=== PATIENT | female | born 1975 | race Caucasian/White ===

== ENCOUNTER 2018-01-24 12:02 | Emergency (ER) | payer SELFPAY ==
[2018-01-24] MEDS ORDERED: METOCLOPRAMIDE 10 MG/2mL INJ ONE (12:29)
[2018-01-24] MEDS ORDERED: ONDANSETRON 4 MG/2 ML VIAL ONE (12:30)
[2018-01-24] MEDS ORDERED: NA CHLORIDE 0.9% 1,000 ML ONE (12:30)
[2018-01-24] MEDS ORDERED: DEXAMETHASONE 4 MG/ML VIAL ONE (12:36)
--- NOTE | 2018-01-24 12:45 | RAD REPORT ---
EXAM DESCRIPTION: CT - Head Brain Wo Cont - 01/24/2018 12:30 pm CLINICAL HISTORY: Headache COMPARISON: 2016 TECHNIQUE: Computed axial tomography of the head was obtained. IV contrast was not requested. All CT scans are performed using dose optimization technique as appropriate and may include automated exposure control or mA/KV adjustment according to patient size. FINDINGS: An intracranial bleed is not seen . The ventricles are normal in caliber. No extra-axial fluid collection is noted. Fluid within the sinuses/ mastoids is not seen. IMPRESSION: No acute intracranial abnormality is seen. If patient's symptoms persist MRI of the bra in would be recommended.
[2018-01-24 13:09] LABS: Urine Bacteria >50 /HPF (<20); Urine Culture Reflex Order NOT NEEDED; Urine RBC <5 /HPF (NONE SEEN)
[2018-01-24 13:12] LABS: Absolute Neutrophil 9.6 K/uL (1.8-8.0); Basophils % 0.9 % (0-1.3); Eosinophils % 1.7 % (0-4.4); Hematocrit 34.7 % (36.0-45.0); Lymphocytes % 26.9 % (15.3-44.8); MCH 27.9 pg (27.0-35.0); MCV 82.3 fL (80-100); MPV 9.1 fL (7.6-11.3); Monocytes % 6.8 % (3.3-12.3); RBC Red Blood Cell Count 4.22 M/uL (3.86-4.86)
[2018-01-24 13:15] LABS: Protime INR 0.94
[2018-01-24 13:25] LABS: Urine Blood NEGATIVE (NEG); Urine Glucose NEGATIVE (NEG); Urine Protein NEGATIVE (NEG)
[2018-01-24] MEDS ORDERED: CEFTRIAXONE/SWI 1gm 1 GM/10 ML SYR ONE (13:57)
[2018-01-24] MEDS ORDERED: MEPERIDINE HCL 50 MG/ML AMP ONE (14:24)
--- NOTE | 2018-01-24 15:22 | RAD REPORT ---
EXAM DESCRIPTION: CTHead angio01/24/2018 2:43 pm CLINICAL HISTORY: Headache COMPARISON: January 24, [address] TECHNIQUE: CT angiogram of the head was obtained. 50 cc Isovue 370 was intravenously. 3D MIP reconst ruction was performed All CT scans are performed using dose optimization technique as appropriate and may include automated exposure control or mA/KV adjustment according to patient size. FINDINGS: The basilar, internal carotid, anterior cerebral, middle cerebral and posterior cerebral a rteries are normal caliber. An aneurysm is not seen. A significant stenosis is not noted. IMPRESSION: Unremarkable CT angiogram head.
--- NOTE | 2018-01-24 15:29 | EDPHYS ---
Physician Documentation [facility] Name: April Ford Age: 42 yrs Sex: Female : 1975 Arrival Date: 01/24/2018 Time: 12:07 Bed 26 Private MD: ED Physician Yogesh Davidson HPI: 01/24 12:16 This 42 yrs old Female presents to ER via EMS with complaints of Headache. cp 12:16 The patient complains of pain to the all over. Onset: The symptoms/episode cp began/occurred 2 week(s) ago. 12:16 Associated signs and symptoms: Pertinent positives: nausea, Photophobia Pertinent cp negatives: fever, neck stiffness, sinus congestion, sinus tenderness, weakness. 12:16 Severity of symptoms: in the emergency department the pain is unchanged, despite home cp interventions. 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 - Social history:: Smoking status: Patient/guardian denies using tobacco. - Ebola Screening: : Patient negative for fever greater than or equal to 101.5 degrees Fahrenheit, and additional compatible Ebola Virus Disease symptoms Patient denies exposure to infectious person Patient denies travel to an Ebola-affected area in the 21 days before illness onset No symptoms or risks identified at this time. ROS: 12:20 Constitutional: Negative for body aches, chills, fever, poor PO intake. cp 12:20 Eyes: Positive for photophobia, Negative for discharge, redness, vision loss. cp 12:20 ENT: Negative for drainage from ear(s), ear pain, sore throat, difficulty swallowing, difficulty handling secretions. 12:20 Cardiovascular: Negative for chest pain, edema, palpitations. 12:20 Respiratory: Positive for shortness of breath, Negative for cough, wheezing. 12:20 Abdomen/GI: Positive for nausea, Negative for vomiting, diarrhea, constipation, black/tarry stool, rectal bleeding. 12:20 Back: Negative for pain at rest, pain with movement, radiated pain. 12:20 : Negative for urinary symptoms, flank pain. 12:20 Skin: Negative for cellulitis, rash. 12:20 Neuro: Positive for altered mental status, headache, numbness, weakness. 12:20 All other systems are negative. Exam: 12:27 Constitutional: The patient appears in no acute distress, alert, awake, non-toxic, well cp developed, well nourished, uncomfortable. 12:27 Head/face: Noted is rash, of the forehead and bridge of nose, Sinus tenderness, is not cp appreciated. 12:30 Eyes: Periorbital structures: appear normal, Pupils: equal, round, and reactive to cp light and accomodation, Extraocular movements: intact throughout, Conjunctiva: normal, no exudate, no injection, Sclera: no appreciated abnormality, Lids and lashes: appear normal, bilaterally. 12:30 ENT: External ear(s): are unremarkable, Ear canal(s): are normal, clear, TM's: cp dullness, bilaterally, Nose: is normal, Mouth: Lips: moist, Oral mucosa: pink and intact, moist, Posterior pharynx: is normal, airway is patent, no erythema, no exudate. 12:30 Neck: ROM/movement: is normal, is supple, without pain, no range of motions limitations, no meningismus, no nuchal rigidity. 12:30 Chest/axilla: Inspection: normal, Palpation: is normal, no crepitus, no tenderness. 12:30 Cardiovascular: Rate: normal, Rhythm: regular. 12:30 Respiratory: the patient does not display signs of respiratory distress, Respirations: normal, no use of accessory muscles, no retractions, no splinting, no tachypnea, labored breathing, is not present, Breath sounds: are clear throughout, no decreased breath sounds, no stridor, no wheezing. 12:30 Abdomen/GI: Inspection: abdomen appears normal, Palpation: abdomen is soft and non-tender, in all quadrants, rebound tenderness, is not appreciated, voluntary guarding, is not appreciated, involuntary guarding, is not appreciated. 12:30 Back: pain, is absent, ROM is normal. 12:30 Skin: cellulitis, is not appreciated, no rash present. 12:30 Neuro: Orientation: to person, place \T\ time. Mentation: lucid, able to follow commands, Cerebellar function: Romberg testing is negative, normal finger to nose testing, Motor: moves all fours, strength is normal, Sensation: no obvious gross deficits. Vital Signs: 12:11 BP 157 / 96; Pulse 90; Resp 20; Temp 98.3; Pulse Ox 97% on R/A; Weight 90.72 kg; Height aj 5 ft. 6 in. (167.64 cm); 13:33 BP 125 / 75; Pulse 90; Resp 15; Pulse Ox 100% on R/A; Pain 8/10; aj 13:50 BP 119 / 63; Pulse 74; Resp 16; Pulse Ox 99% on R/A; Pain 8/10; aj 15:07 BP 120 / 60; Pulse 66; Resp 16; Pulse Ox 99% on R/A; aj 16:11 BP 117 / 82; Pulse 82; Resp 16; Pulse Ox 99% on R/A; Pain 8/10; aj 12:11 Body Mass Index 32.28 (90.72 kg, 167.64 cm) aj MDM: 12:17 Patient medically screened. [place] 13:00 Differential diagnosis: cluster headache, cerebral vascular accident, hypertensive cp headache, meningitis, meningoencephalitis, migraine, sinusitis, subarachnoid bleed, temporal arteritis, trigeminal neuralgia. 15:28 Data reviewed: vital signs, nurses notes, lab test result(s), radiologic studies, CT cp scan. 15:28 Counseling: I had a detailed discussion with the patient and/or guardian regarding: the cp historical points, exam findings, and any diagnostic results supporting the discharge/admit diagnosis, lab results, radiology results, the need for outpatient follow up, a neurologist, to return to the emergency department if symptoms worsen or persist or if there are any questions or concerns that arise at home. Response to treatment: VSS. Patient observed sleeping in exam room. Will discharge to home for continued monitoring. 01/24 12:16 Order name: BMP; Complete Time: 13:27 cp 01/24 13:29 Interpretation: Normal except: GFR 54. cp 01/24 12:16 Order name: CBC with Diff; Complete Time: 13:27 cp 01/24 13:28 Interpretation: Normal except: WBC 15.0; HGB 11.8; HCT 34.7; RDW 16.5; NEUT A 9.6. 01/24 12:16 Order name: PT-INR; Complete Time: 13:27 01/24 12:16 Order name: Ptt, Activated; Complete Time: 13:27 01/24 12:45 Order name: Urine Microscopic Only; Complete Time: 13:[facility] 01/24 13:28 Interpretation: Normal except: UBACT >50; SQEPI 5-10. 01/24 12:47 Order name: Urine Dipstick--Ancillary (enter results); Complete Time: 13:27 [facility] 01/24 13:29 Interpretation: Normal except: U NIT POSITIVE. 01/24 12:16 Order name: CT Head Brain wo Cont; Complete Time: 13:01 01/24 13:01 Interpretation: Report reviewed. 01/24 12:47 Order name: Urine --Ancillary (enter results); Complete Time: 13:27 [facility] 01/24 13:53 Order name: Head angio; Complete Time: 15:28 EDMS 01/24 15:28 Interpretation: Report reviewed. 01/24 12:16 Order name: Urine Dipstick-Ancillary (obtain specimen); Complete Time: 12:55 01/24 12:16 Order name: Urine Test (obtain specimen); Complete Time: 12:54 01/24 12:16 Order name: IV; Complete Time: 12:54 01/24 12:16 Order name: Misc. Order: patient needs ride home prior to administration of meds; cp Complete Time: 12:34 Administered Medications: 12:53 Drug: Decadron - Dexamethasone 10 mg Route: IVP; Site: right antecubital; aj 13:49 Follow up: Response: Pain is decreased aj 12:54 Drug: NS 0.9% 1000 ml Route: IV; Rate: 1 bolus; Site: right antecubital; aj 15:51 Follow up: Response: No adverse reaction; IV Status: Completed infusion; IV Intake: aj 1000ml 12:54 Drug: Reglan 20 mg Route: IVP; Site: right antecubital; aj 13:48 Follow up: Response: Pain is decreased aj 12:54 Drug: Zofran 4 mg Route: IVP; Site: right antecubital; aj 13:49 Follow up: Response: Pain is decreased aj 13:53 Drug: Rocephin 1 grams Route: IV; Rate: bolus; Site: right antecubital; aj 16:13 Follow up: Response: No adverse reaction; IV Status: Completed infusion; IV Intake: 10mlaj 14:22 Drug: Demerol 25 mg Route: IVP; Site: right antecubital; aj 15:50 Follow up: Response: No adverse reaction aj 15:44 Drug: TORadol 30 mg Route: IVP; Site: right antecubital; aj 16:13 Follow up: Response: Pain is unchanged, physician notified aj Disposition: 17:00 Chart complete. cp 01/25 06:44 Co-signature as Attending Physician, Yogesh Davidson MD I agree with the assessment and [facility] plan of care. Disposition: 01/24/18 15:28 Discharged to Home. Impression: Headache. - Condition is Stable. - Discharge Instructions: General Headache Without Cause. - Prescriptions for promethazine 25 mg Oral Tablet - take 1 tablet by ORAL route every 6 hours As needed; 20 tablet. Imitrex 50 mg Oral Tablet - take 1 tablet by ORAL route one time - x 1 dose with fluids as early as possible after the onset of a migraine attack; if headache returns, the dose may be repeated after 2 hours, not to exceed a total daily dose of 4 tablets;. Naprosyn 500 mg Oral Tablet - take 1 tablet by ORAL route 2 times per day take with food; 20 tablet. - Medication Reconciliation Form, Thank You Letter, Antibiotic Education, Prescription Opioid Use form. - Follow up: Matt Crockett MD; When: 1 - 2 days; Reason: Recheck today's complaints. - Problem is new. - Symptoms have improved. Signatures: Dispatcher [employer] Lynnette Bettencourt RN RN aj Anderson, Corey, MD MD cha Page, Corey, PA PA cp Corrections: (The following items were deleted from the chart) 01/24 13:42 13:40 Constitutional: The patient appears in no acute distress, cp cp 16:14 15:28 01/24/2018 15:28 Discharged to Home. Impression: Headache. Condition is Stable. aj Forms are Medication Reconciliation Form, Thank You Letter, Antibiotic Education, Prescription Opioid Use. Follow up: Matt Crockett; When: 1 - 2 days; Reason: Recheck today's complaints. Problem is new. Symptoms have improved. cp
--- NOTE | 2018-01-24 15:29 | ER ---
Nurse's Notes [facility] Name: April Ford Age: 42 yrs Sex: Female : 1975 Arrival Date: 01/24/2018 Time: 12:07 Bed 26 Private MD: Diagnosis: Headache Presentation: 01/24 12:08 Presenting complaint: EMS states: Migraine headache for 14 days. Patient reports headache became worse 2 days ago. Transition of care: patient was not received from another setting of care. Onset of symptoms was January 24, 2018. Risk Assessment: Do you want to hurt yourself or someone else? Patient reports no desire to harm self or others. Initial Sepsis Screen: Does the patient meet any 2 criteria? No. Patient's initial sepsis screen is negative. Does the patient have a suspected source of infection? No. Patient's initial sepsis screen is negative. Care prior to arrival: None. 12:08 Method Of Arrival: EMS: [facility] 12:08 Acuity: BALDEMAR 3 Triage Assessment: 12:11 Headache History: The patient has had previous headaches and this one is similar to previous episodes. General: Appears in no apparent distress. uncomfortable, Behavior is cooperative, appropriate for age, crying. Pain: Complains of pain in face Pain Pain began 14 Days ago Also complains of nausea. Neuro: Level of Consciousness is awake, alert, obeys commands, Oriented to person, place, time, situation, Appropriate for age Cane Packer are equal bilaterally Moves all extremities. Speech is normal, Facial symmetry appears normal, Reports headache. Respiratory: Airway is patent Respiratory effort is even, unlabored, Respiratory pattern is regular, symmetrical. Derm: Skin is intact, is healthy with good turgor, Skin is pink, warm \\T\\ dry. normal, Rash noted that is red, on nose. 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 - Social history:: Smoking status: Patient/guardian denies using tobacco. - Ebola Screening: : Patient negative for fever greater than or equal to 101.5 degrees Fahrenheit, and additional compatible Ebola Virus Disease symptoms Patient denies exposure to infectious person Patient denies travel to an Ebola-affected area in the 21 days before illness onset No symptoms or risks identified at this time. Screenin:35 Abuse screen: Denies threats or abuse. Denies injuries from another. Nutritional aj screening: No deficits noted. Tuberculosis screening: No symptoms or risk factors identified. Fall Risk None identified. Assessment: 12:27 Reassessment: Patient taken to CT prior to obtaining urine or IV start. Patient aj reported that her daughter is on her way to the ER and will be providing her with a ride home. 12:35 Reassessment: Patient's daughter is here. aj 12:55 Reassessment: Patient complains that pain is unrelieved. aj 13:38 Reassessment: Patient appears in no apparent distress at this time. Patient and/or aj family updated on plan of care and expected duration. Pain level reassessed. Patient is alert, oriented x 3, equal unlabored respirations, skin warm/dry/pink. Patient reports pain has improved from 10/10 to 8/10, and reports that she is still uncomfortable. Patient requested to speak to Dr Davidson. Physician notified. 15:07 Reassessment: Patient appears in no apparent distress at this time. Patient and/or aj family updated on plan of care and expected duration. Pain level reassessed. Patient is alert, oriented x 3, equal unlabored respirations, skin warm/dry/pink. Patient is resting comfortably in bed Patient states feeling better. Patient states symptoms have improved. 15:40 Reassessment: Patient appears in no apparent distress at this time. Patient reports aj pain is not improved, 8/10. Patient is drowsy in bed. Provider notified of patient's pain. Vital Signs: 12:11 BP 157 / 96; Pulse 90; Resp 20; Temp 98.3; Pulse Ox 97% on R/A; Weight 90.72 kg; Height aj 5 ft. 6 in. (167.64 cm); 13:33 BP 125 / 75; Pulse 90; Resp 15; Pulse Ox 100% on R/A; Pain 8/10; aj 13:50 BP 119 / 63; Pulse 74; Resp 16; Pulse Ox 99% on R/A; Pain 8/10; aj 15:07 BP 120 / 60; Pulse 66; Resp 16; Pulse Ox 99% on R/A; aj 16:11 BP 117 / 82; Pulse 82; Resp 16; Pulse Ox 99% on R/A; Pain 8/10; aj 12:11 Body Mass Index 32.28 (90.72 kg, 167.64 cm) aj ED Course: 12:07 Patient arrived in ED. aj 12:08 Lynnette Sher, RN is Primary Nurse. aj 12:09 Triage completed. aj 12:10 Yogesh Mac PA is PHCP. cp 12:10 Yogesh Davidson MD is Attending Physician. cp 12:11 Arm band placed on left wrist. Patient placed in an exam room, on a stretcher, on pulse aj oximetry. 12:11 Patient has correct armband on for positive identification. aj 12:11 No provider procedures requiring assistance completed. IV discontinued, intact, aj bleeding controlled, No redness/swelling at site. Pressure dressing applied. 12:28 Notified Nurse Practitioner and/or Physician Medical Science Liaison of Patient's pain level. aj Requested medication for pain. Provider stated "I'm not giving her any narcotics. We will start with what I ordered.". 12:29 CT completed. Patient tolerated procedure well. Patient moved to CT via wheelchair. sj Patient moved back from CT. 12:30 CT Head Brain wo Cont In Process Unspecified. EDMS 12:56 Inserted saline lock: 20 gauge in right antecubital area, using aseptic technique. aj Blood collected. 13:56 Notified Nurse Practitioner and/or Physician Medical Science Liaison of Patient's pain level, request aj to be updated about CT results, and request to speak to Dr Davidson. 14:43 Head angio In Process Unspecified. EDMS 14:43 CT completed. Patient tolerated procedure well. Patient moved to CT via wheelchair. [id number] Patient moved back from CT. 15:28 Matt Crockett MD is Referral Physician. cp Administered Medications: 12:53 Drug: Decadron - Dexamethasone 10 mg Route: IVP; Site: right antecubital; aj 13:49 Follow up: Response: Pain is decreased aj 12:54 Drug: NS 0.9% 1000 ml Route: IV; Rate: 1 bolus; Site: right antecubital; aj 15:51 Follow up: Response: No adverse reaction; IV Status: Completed infusion; IV Intake: aj 1000ml 12:54 Drug: Reglan 20 mg Route: IVP; Site: right antecubital; aj 13:48 Follow up: Response: Pain is decreased aj 12:54 Drug: Zofran 4 mg Route: IVP; Site: right antecubital; aj 13:49 Follow up: Response: Pain is decreased aj 13:53 Drug: Rocephin 1 grams Route: IV; Rate: bolus; Site: right antecubital; aj 16:13 Follow up: Response: No adverse reaction; IV Status: Completed infusion; IV Intake: 10mlaj 14:22 Drug: Demerol 25 mg Route: IVP; Site: right antecubital; aj 15:50 Follow up: Response: No adverse reaction aj 15:44 Drug: TORadol 30 mg Route: IVP; Site: right antecubital; aj 16:13 Follow up: Response: Pain is unchanged, physician notified aj Intake: 15:51 IV: 1000ml; Total: 1000ml. aj 16:13 IV: 10ml; Total: 1010ml. aj Outcome: 12:11 Discharged to home ambulatory, with family. aj 12:11 Condition: good 12:11 Discharge instructions given to patient, family, Instructed on discharge instructions, follow up and referral plans. medication usage, Demonstrated understanding of instructions, follow-up care, medications, Prescriptions given X 3. 15:28 Discharge ordered by MD. cp 16:14 Patient left the ED. aj Addendum: 01/27/2018 17:26 Addendum: Culture Results: Positive urine culture. Patient was not prescribed i w antibiotics at discharge. Report given to [facility] for further evaluation and then to marine steam fitter for follow up with patient. Phone call Attempt #1 unable to leave message, call failed several times. Signatures: Dispatcher [employer] Lynnette Bettencourt RN RN aj Jones, Susan sj Williams, Irene, RN RN iw Page, Corey, PA PA cp Garcia, Jessica [id number] Corrections: (The following items were deleted from the chart) 01/24 12:28 12:27 Reassessment: Patient taken to CT prior to obtaining urine or IV start. aj aj 01/27 17:27 17:26 Addendum: Culture Results: Positive urine culture. Bacteria is resistant to, has iw intermediate sensitivity, or is not tested against prescribed antibiotics. Report given to [facility] for further evaluation and then to marine steam fitter for follow up with patient. Phone call Attempt #1 unable to leave message, call failed several times iw
[2018-01-24] MEDS ORDERED: KETOROLAC 30 MG/ML INJ ONE (15:44)
[2018-01-24 16:27] VITALS: TEMP 98.3
[2018-01-24 16:29] VITALS: O2SAT 99
[2018-01-24 16:32] VITALS: BP 117/82
== END 2018-01-24 16:14 | disposition home or self-care (01) ==
LOC: ER 12:02
DX: R51 Headache (principal); F41.9 Anxiety disorder, unspecified; Z88.0 Allergy status to penicillin; Z88.8 Allergy status to other drugs, medicaments and biological substances
CPT/HCPCS: 36415; 70450; 70496; 80048; 81003; 81015; 81025; 85025; 85610; 85730; 87077; 87086; 87088; 87186; 96361; 96365; 96366; 96375; 99285; J0696; J2175; J2405; J2765; J7030; Q9967

== ENCOUNTER 2018-03-08 10:22 | Emergency (ER) | payer SELFPAY ==
[2018-03-08] MEDS ORDERED: IPRATROPIUM BROM 0.5MG/2.5ML ONE ×2 (11:11→12:56)
[2018-03-08] MEDS ORDERED: ALBUTEROL 2.5 MG/3 ML NEB SOL ONE ×2 (11:11→12:56)
--- NOTE | 2018-03-08 11:45 | RAD REPORT ---
EXAM DESCRIPTION: RAD - Chest Pa And Lat (2 Views) - 03/08/2018 11:32 am CLINICAL HISTORY: Congestion;Cough Chest pain. COMPARISON: CHEST SINGLE VIEW dated 07/19/2015; CHEST SINGLE VIEW dated 07/11/2014; CHEST SINGLE VIEW d ated 07/10/2014; CHEST SINGLE VIEW dated 08/21/2009 FINDINGS: Interstitial prominence is present bilaterally. The heart is normal in size. No displaced fractures. Moderate hiatal hernia. IMPRESSION: Moderate bilateral interstitial opacities are present likely representing interstitial p neumonia.
[2018-03-08] MEDS ORDERED: predniSONE 20 MG TAB ONE (12:22)
[2018-03-08] MEDS ORDERED: AZITHROMYCIN 250 MG TAB ONE (12:22)
--- NOTE | 2018-03-08 12:38 | RAD REPORT ---
EXAM DESCRIPTION: RAD - Hand Right 3 View - 03/08/2018 11:33 am CLINICAL HISTORY: Right hand pain FINDINGS: No fracture or dislocation is seen.
--- NOTE | 2018-03-08 13:35 | ER ---
Nurse's Notes [facility] Name: April Ford Age: 42 yrs Sex: Female : 1975 Arrival Date: 03/08/2018 Time: 10:25 Bed 14 Private MD: Diagnosis: Pneumonia, unspecified organism Presentation: 03/08 10:48 Presenting complaint: Patient states: Cough, shortness of breath, hoarse voice for the aj1 past 3 days. Denies fever. Reports productive cough. Breath sounds diminished with wheezes. Patient also reports sore throat. Transition of care: patient was not received from another setting of care. Onset of symptoms was March 05, 2018. 10:48 Method Of Arrival: Ambulatory aj1 10:48 Acuity: BALDEMAR 3 aj1 11:09 Risk Assessment: Do you want to hurt yourself or someone else? Patient reports no la1 desire to harm self or others. Initial Sepsis Screen: Does the patient meet any 2 criteria? No. Patient's initial sepsis screen is negative. Does the patient have a suspected source of infection? No. Patient's initial sepsis screen is negative. Care prior to arrival: None. Triage Assessment: 10:50 General: Appears in no apparent distress. uncomfortable, Behavior is calm, cooperative, aj1 appropriate for age. Pain: Complains of pain in forehead Pain currently is 7 out of 10 on a pain scale. Neuro: Level of Consciousness is awake, alert, obeys commands. Cardiovascular: Patient's skin is warm and dry. Respiratory: Reports shortness of breath cough that is productive, Airway is patent Respiratory effort is even, labored, Respiratory pattern is regular, symmetrical, Breath sounds with wheezes bilaterally. Onset: The symptoms/episode began/occurred 3 days ago, the patient has mild shortness of breath. Historical: - Allergies: 10:50 Benadryl; aj1 10:50 PENICILLINS; aj1 - PMHx: 10:50 Anxiety; Migraines; Panic Attacks; aj1 - Immunization history:: Adult Immunizations up to date. - Social history:: Smoking status: unknown. - Ebola Screening: : No symptoms or risks identified at this time. Screenin:09 Abuse screen: Denies threats or abuse. Nutritional screening: No deficits noted. la1 Tuberculosis screening: No symptoms or risk factors identified. Fall Risk None identified. Assessment: 11:08 General: Appears in no apparent distress. Behavior is calm, cooperative. Pain: la1 Complains of pain in right hand and forehead. Neuro: Level of Consciousness is awake, alert, obeys commands, Oriented to person, place, time, situation. Cardiovascular: Capillary refill < 3 seconds Patient's skin is warm and dry. Rhythm is regular. Respiratory: Airway is patent Respiratory effort is even, unlabored, Respiratory pattern is regular, symmetrical. Respiratory: Breath sounds with rhonchi bilaterally. GI: Abdomen is round. : No signs and/or symptoms were reported regarding the genitourinary system. 12:40 Reassessment: Patient appears in no apparent distress at this time. No changes from la1 previously documented assessment. Patient and/or family updated on plan of care and expected duration. Pain level reassessed. 13:29 Reassessment: Patient appears in no apparent distress at this time. No changes from la1 previously documented assessment. Patient and/or family updated on plan of care and expected duration. Pain level reassessed. Vital Signs: 10:50 BP 125 / 88; Pulse 93; Resp 24; Pulse Ox 100% on R/A; Pain 7/10; aj1 13:00 BP 121 / 74; Pulse 97; Resp 20; Temp 98.8(O); Pulse Ox 98% on R/A; la1 ED Course: 10:25 Patient arrived in ED. as 10:49 Triage completed. aj1 10:50 Arm band placed on Patient placed in an exam room. aj1 10:52 [facility] kb 10:52 Sammy Chiu MD is Attending Physician. kb 11:08 Erasto Jorgensen, CATA is Primary Nurse. la1 11:09 Call light in reach. la1 11:09 No provider procedures requiring assistance completed. la1 11:33 Chest Pa And Lat (2 Views) XRAY In Process Unspecified. EDMS 11:33 Hand Right 3 View XRAY In Process Unspecified. EDMS 13:29 Patient did not have IV access during this emergency room visit. la1 Administered Medications: 11:41 Drug: DuoNeb (3:1) (2.5 mg - 0.5 mg) 3 ml Route: Nebulizer; la1 11:56 Follow up: Response: No adverse reaction la1 12:18 Drug: predniSONE 40 mg Route: PO; la1 12:48 Follow up: Response: No adverse reaction la1 12:18 Drug: Zithromax 500 mg Route: PO; la1 12:48 Follow up: Response: No adverse reaction la1 13:00 Drug: DuoNeb (3:1) (2.5 mg - 0.5 mg) 3 ml Route: Nebulizer; la1 Outcome: 13:34 Discharge ordered by . shreyas 13:47 Discharged to home ambulatory. la1 13:47 Condition: stable 13:47 Discharge instructions given to patient, Instructed on discharge instructions, follow up and referral plans. medication usage, Demonstrated understanding of instructions, follow-up care, medications, Prescriptions given X 3. 13:47 Patient left the ED. la1 Signatures: Dispatcher [employer] EDMS Zoe Marie, THREE KNIFE TRIMMER-C THREE KNIFE TRIMMER-Abbey Sandhu, RN RN ajSalma Warner Lee, RN RN la1
--- NOTE | 2018-03-08 13:35 | EDPHYS ---
Physician Documentation [facility] Name: April Ford Age: 42 yrs Sex: Female : 1975 Arrival Date: 03/08/2018 Time: 10:25 Bed 14 Private MD: ED Physician Sammy Chiu HPI: 03/08 12:39 This 42 yrs old Female presents to ER via Ambulatory with complaints of kb Cough, Shortness Of Breath. 12:39 The patient or guardian reports cough, that is intermittent, described as moderate, kb with no sputum, difficulty breathing. Onset: The symptoms/episode began/occurred 3 day(s) ago. Severity of symptoms: At their worst the symptoms were moderate, in the emergency department the symptoms are unchanged. Modifying factors: The symptoms are alleviated by nothing, the symptoms are aggravated by nothing. Associated signs and symptoms: Pertinent positives: rhinorrhea, sore throat, Pertinent negatives: chest pain, diarrhea, ear ache, fever, nausea, vomiting. The patient has not experienced similar symptoms in the past. The patient has not recently seen a physician. Pt reports shortness of breath, cough, sore throat, hoarse voice, malaise and finger pain for 3 days. . Historical: - Allergies: 10:50 Benadryl; aj1 10:50 PENICILLINS; aj1 - PMHx: 10:50 Anxiety; Migraines; Panic Attacks; aj1 - Immunization history:: Adult Immunizations up to date. - Social history:: Smoking status: unknown. - Ebola Screening: : No symptoms or risks identified at this time. ROS: 12:44 Constitutional: Negative for fever, chills, and weight loss, Neck: Negative for injury, kb pain, and swelling, Cardiovascular: Negative for chest pain, palpitations, and edema, Abdomen/GI: Negative for abdominal pain, nausea, vomiting, diarrhea, and constipation, Back: Negative for injury and pain, MS/Extremity: Negative for injury and deformity, Skin: Negative for injury, rash, and discoloration. 12:44 ENT: Positive for hoarseness, rhinorrhea, sinus congestion, sore throat. 12:44 Respiratory: Positive for cough, shortness of breath, Negative for dyspnea on exertion, hemoptysis, orthopnea, pleurisy. Exam: 12:44 Constitutional: This is a well developed, well nourished patient who is awake, alert, kb and in no acute distress. Head/Face: Normocephalic, atraumatic. Chest/axilla: Normal chest wall appearance and motion. Nontender with no deformity. No lesions are appreciated. Cardiovascular: Regular rate and rhythm with a normal S1 and S2. No gallops, murmurs, or rubs. Normal PMI, no JVD. No pulse deficits. Abdomen/GI: Soft, non-tender, with normal bowel sounds. No distension or tympany. No guarding or rebound. No evidence of tenderness throughout. Skin: Warm, dry with normal turgor. Normal color with no rashes, no lesions, and no evidence of cellulitis. MS/ Extremity: Pulses equal, no cyanosis. Neurovascular intact. Full, normal range of motion. Neuro: Awake and alert, GCS 15, oriented to person, place, time, and situation. Cranial nerves II-XII grossly intact. Motor strength 5/5 in all extremities. Sensory grossly intact. Cerebellar exam normal. Normal gait. 12:44 ENT: Mouth: is normal, Posterior pharynx: Airway: normal, no evidence of obstruction, Tonsils: bilaterally enlarged, with erythema, Uvula: normal, midline, swelling, that is mild, erythema, that is moderate, Voice: is hoarse. 12:44 Respiratory: the patient does not display signs of respiratory distress, Respirations: normal, Breath sounds: wheezing: expiratory that is moderate, is heard diffusely. Vital Signs: 10:50 BP 125 / 88; Pulse 93; Resp 24; Pulse Ox 100% on R/A; Pain 7/10; aj1 13:00 BP 121 / 74; Pulse 97; Resp 20; Temp 98.8(O); Pulse Ox 98% on R/A; la1 MDM: 10:52 Patient medically screened. kb 12:45 Data reviewed: vital signs, nurses notes. Data interpreted: Pulse oximetry: on room air kb is 100 %. Interpretation: normal. 13:34 Counseling: I had a detailed discussion with the patient and/or guardian regarding: the kb historical points, exam findings, and any diagnostic results supporting the discharge/admit diagnosis, lab results, radiology results, the need for outpatient follow up, a family practitioner, to return to the emergency department if symptoms worsen or persist or if there are any questions or concerns that arise at home. 03/08 10:58 Order name: Flu; Complete Time: 12:38 kb 03/08 10:58 Order name: Strep; Complete Time: 11:41 kb 03/08 10:58 Order name: Chest Pa And Lat (2 Views) XRAY; Complete Time: 11:53 kb 03/08 10:58 Order name: Hand Right 3 View XRAY; Complete Time: 12:40 kb 03/08 11:40 Order name: Throat Culture EDMS Administered Medications: 11:41 Drug: DuoNeb (3:1) (2.5 mg - 0.5 mg) 3 ml Route: Nebulizer; la1 11:56 Follow up: Response: No adverse reaction la1 12:18 Drug: predniSONE 40 mg Route: PO; la1 12:48 Follow up: Response: No adverse reaction la1 12:18 Drug: Zithromax 500 mg Route: PO; la1 12:48 Follow up: Response: No adverse reaction la1 13:00 Drug: DuoNeb (3:1) (2.5 mg - 0.5 mg) 3 ml Route: Nebulizer; la1 Disposition: 03/08/18 13:34 Discharged to Home. Impression: Pneumonia, unspecified organism. - Condition is Stable. - Discharge Instructions: Community-Acquired Pneumonia, Adult, [id number], Steps to Quit Smoking, [id number]. - Prescriptions for Prednisone 20 mg Oral Tablet - take 1 tablet by ORAL route once daily for 5 days; 5 tablet. Albuterol Sulfate 90 mcg/actuation - inhale 1-2 puff by INHALATION route every 4-6 hours; 1 Inhaler. Zithromax 500 mg Oral Tablet - take 1 tablet by ORAL route once daily for 5 days; 5 tablet. - Medication Reconciliation Form, Thank You Letter, Antibiotic Education, Prescription Opioid Use form. - Follow up: Private Physician; When: 2 - 3 days; Reason: Recheck today's complaints, Continuance of care, Re-evaluation by your physician. Follow up: Emergency Department; When: As needed; Reason: Worsening of condition. Addendum: 03/18/2018 08:04 Co-signature as Attending Physician, Sammy Chiu MD I agree with the assessment and k dr plan of care. Signatures: Dispatcher [employer] EDSC Zoe Marie, ANIMAL PHYSIOLOGIST-C ANIMAL PHYSIOLOGIST-CkAbbey De La Vega, RN RN aj1 Sammy Chiu MD MD kdr Erasto Jorgensen RN RN la1 Corrections: (The following items were deleted from the chart) 03/08 13:47 13:34 03/08/2018 13:34 Discharged to Home. Impression: Pneumonia, unspecified organism. la1 Condition is Stable. Forms are Medication Reconciliation Form, Thank You Letter, Antibiotic Education, Prescription Opioid Use. Follow up: Private Physician; When: 2 - 3 days; Reason: Recheck today's complaints, Continuance of care, Re-evaluation by your physician. Follow up: Emergency Department; When: As needed; Reason: Worsening of condition. kb
[2018-03-08 13:55] VITALS: BP 121/74; TEMP 98.8; O2SAT 98
== END 2018-03-08 13:47 | disposition home or self-care (01) ==
LOC: ER 10:22
DX: J18.9 Pneumonia, unspecified organism (principal); Z88.0 Allergy status to penicillin; Z88.8 Allergy status to other drugs, medicaments and biological substances
CPT/HCPCS: 71046; 87070; 87081; 87804; 94640; 99284; J7512

== ENCOUNTER 2019-10-30 10:52 | Emergency (ER) | payer SELFPAY, OTHER ==
[2019-10-30 11:33] LABS: Absolute Lymphocytes (CBC) 1.9 K/uL (0.7-4.9); Basophils % 0.4 % (0-1.3); Hematocrit 35.2 % (36.0-45.0); Lymphocytes % 9.1 % (15.3-44.8); MPV 9.5 fL (7.6-11.3); RBC Red Blood Cell Count 4.46 M/uL (3.86-4.86)
[2019-10-30 11:35] LABS: Protime INR 1.24
[2019-10-30 11:49] LABS: ALT/SGPT 25 U/L (12-78); AST/SGOT 17 U/L (15-37); Albumin 3.2 g/dL (3.4-5.0); Alkaline Phosphatase 122 U/L (45-117); BUN Blood Urea Nitrogen 9 mg/dL (7-18); Bicarbonate 23 mmol/L (21-32); Bilirubin Direct < 0.1 mg/dL (0-0.2); Bilirubin Total 0.2 mg/dL (0.2-1.0); Glucose Level 102 mg/dL (74-106); Lipase 131 U/L (73-393); Protein, Total 7.9 g/dL (6.4-8.2); Sodium Level 135 mmol/L (136-145); Troponin (Emerg Dept Use Only) < 0.02 ng/mL (0.0-0.045)
[2019-10-30 11:51] LABS: Arterial Blood Carboxyhemoglob 2.8 % (0-1.5); Blood Gas Oxyhemoglobin 92.4 % (94-97); Blood O2 Saturation 96.1 % (92-98.5)
[2019-10-30] MEDS ORDERED: ACETAMINOPHEN 325 MG TABLET ONE (11:56)
[2019-10-30] MEDS ORDERED: NA CHLORIDE 0.9% 1,000 ML ONE (11:56)
[2019-10-30] MEDS ORDERED: METOCLOPRAMIDE 10 MG/2mL INJ ONE (12:00)
[2019-10-30 12:11] LABS: Blood Morphology Comment NOT SEEN (NOT SEEN); Platelet Estimate ADEQ
--- NOTE | 2019-10-30 12:21 | RAD REPORT ---
EXAM DESCRIPTION: RAD - Chest Single View - 10/30/2019 11:58 am CLINICAL HISTORY: sob COMPARISON: Two view chest February 2018 TECHNIQUE: AP portable chest image was obtained 10/30/2019 11:58 am . FINDINGS: Lung volumes are low accentuating vasculature and lung markings. When adjusting for the lo w lung volumes. No true change to the lung denis suspected. No significant failure or volume overloa d. Heart and vasculature are normal. No measurable pleural effusion and no pneumothorax. No acute bon y abnormality seen. No acute aortic findings suspected. IMPRESSION: Limited portable imaging without acute cardiopulmonary finding.
--- NOTE | 2019-10-30 13:04 | RAD REPORT ---
EXAM DESCRIPTION: CT - Chest For Pe Angio - 10/30/2019 12:55 pm CLINICAL HISTORY: Chest pain. shortness of breath, fever, elevated d-dimer COMPARISON: CTANGIO CHEST FOR PE dated 07/19/2015 TECHNIQUE: CT angiogram of the pulmonary arteries was performed with MIP. All CT scans are performed using dose optimization technique as appropriate and may include automated exposure control or mA/KV adjustment according to patient size. FINDINGS: Opacification of the pulmonary arterial tree is suboptimal due to bolus timing. Grossly, a pulmonary embolism is not seen No acute aortic finding demonstrated. COPD. No significant pericardial or pleural fluid. No concerning bony finding. IMPRESSION: Pulmonary arterial tree is somewhat suboptimally visualized due to bolus timing. However , grossly, a pulmonary embolism is not seen. COPD.
[2019-10-30] MEDS ORDERED: CEFTRIAXONE/SWI 1gm 1 GM/10 ML SYR ONE (14:39)
[2019-10-30] MEDS ORDERED: IBUPROFEN 200 MG TAB PO ONE (14:44)
[2019-10-30] MEDS ORDERED: IBUPROFEN 400 MG TAB ONE (14:44)
--- NOTE | 2019-10-30 14:49 | EDPHYS ---
Physician Documentation [facility] Name: April Ford Age: 43 yrs Sex: Female : 1975 Arrival Date: 10/30/2019 Time: 10:54 Bed 14 Private MD: ED Physician Yogesh Davidson HPI: 10/29 12:09 This 43 yrs old Female presents to ER via EMS with complaints of Shortness Of jmm Breath, Fever, Body aches. 12:09 The patient has shortness of breath at rest. Onset: The symptoms/episode began/occurred jmm gradually, 3 day(s) ago. Duration: The symptoms are continuous. The patient's shortness of breath is aggravated by nothing, is alleviated by nothing. Associated signs and symptoms: Pertinent positives: non-productive cough, fever. This is a 43 year old female with a history of migraines that presents to the ED with complaints of cough, sore throat body aches, shortness of breath. . Historical: - Allergies: 11:32 Benadryl; sv 11:32 PENICILLINS; sv - PMHx: 11:32 Anxiety; Migraines; Panic Attacks; sv - PSHx: 11:32 Tubal ligation; sv - Immunization history:: Adult Immunizations. - Social history:: Smoking status: . ROS: 12:09 Constitutional: Positive for body aches, fever. jmm 12:09 ENT: Positive for sore throat. 12:09 Respiratory: Positive for cough, shortness of breath. 12:09 All other systems are negative. Exam: 12:09 Constitutional: This is a well developed, well nourished patient who is awake, alert, jmm and in no acute distress. Head/Face: atraumatic. Eyes: EOMI, no conjunctival erythema appreciated ENT: Moist Mucus Membranes Neck: Trachea midline, Supple Chest/axilla: Normal chest wall appearance and motion. 12:09 Abdomen/GI: Non distended, soft Back: Normal ROM Skin: General appearance color normal MS/ Extremity: Moves all extremities, no obvious deformities appreciated, no edema noted to the lower extremities Neuro: Awake and alert, normal gait Psych: Behavior is normal, Mood is normal, Patient is cooperative and pleasant 12:09 Cardiovascular: Rate: tachycardic, Rhythm: regular. 12:09 Respiratory: the patient does not display signs of respiratory distress, Respirations: normal. Vital Signs: 10:58 BP 147 / 70; Pulse 137 MON; Resp 27; Temp 101.6(O); Pulse Ox 97% on R/A; sv 12:17 BP 120 / 62; Pulse 124; Resp 25; Pulse Ox 100% on R/A; Weight 92 kg; Height 5 ft. 6 in. hb (167.64 cm); 13:27 BP 121 / 61; Pulse 116; Resp 20; Temp 101.8(O); Pulse Ox 98% on R/A; mh5 14:37 BP 131 / 67; Pulse 111; Resp 18; Pulse Ox 98% on R/A; mh5 15:33 BP 135 / 78; Pulse 114; Resp 18; Pulse Ox 99% ; sv 12:17 Body Mass Index 32.74 (92.00 kg, 167.64 cm) hb 10:58 Sinus tachycardia sv MDM: 11:10 Patient medically screened. [place] 14:05 Data reviewed: vital signs, nurses notes. Counseling: I had a detailed discussion with [facility] the patient and/or guardian regarding: the historical points, exam findings, and any diagnostic results supporting the discharge/admit diagnosis, lab results, radiology results, the need for outpatient follow up, to return to the emergency department if symptoms worsen or persist or if there are any questions or concerns that arise at home. 14:48 Data reviewed: EKG, radiologic studies, CT scan, plain films. ED course: Patient is [facility] alert and non toxic in appearance in the ED. Patient is advised to follow up with pcp and otherwise given strict return precautions. Patient understood and agrees with the plan of care. . 10/29 10:57 Order name: Blood Culture Adult (2) 10/29 10:57 Order name: BMP; Complete Time: 11:55 10/29 10:57 Order name: CBC with Diff; Complete Time: 12:23 10/29 10:57 Order name: COVID-19 10/29 10:57 Order name: D-Dimer; Complete Time: 11:40 10/29 10:57 Order name: Flu; Complete Time: 12:08 10/29 10:57 Order name: Lactate; Complete Time: 11:55 10/29 10:57 Order name: LFT's; Complete Time: 11:55 10/29 10:57 Order name: Lipase; Complete Time: 11:55 sv 10/29 10:57 Order name: Procalcitonin; Complete Time: 12:23 sv 10/29 10:57 Order name: PT-INR; Complete Time: 11:40 sv 10/29 10:57 Order name: Ptt, Activated; Complete Time: 11:40 sv 10/29 10:57 Order name: Strep; Complete Time: 13:08 sv 10/29 10:57 Order name: Troponin (emerg Dept Use Only); Complete Time: 11:55 sv 10/29 10:57 Order name: EKG; Complete Time: 11:18 sv 10/29 10:57 Order name: Cardiac monitoring; Complete Time: 11:37 sv 10/29 10:57 Order name: Droplet/Contact Precautions; Complete Time: 11:37 sv 10/29 10:57 Order name: EKG - Nurse/Tech; Complete Time: 12:17 sv 10/29 11:13 Order name: Chest Single View; Complete Time: 12:39 EDME 10/29 11:41 Order name: CT Chest For PE Angio; Complete Time: 13:09 [facility] 10/29 11:53 Order name: ABG Arterial Blood Gas EDMS 16 12:12 Order name: Manual Differential; Complete Time: 12:23 EDME 10/29 10:57 Order name: IV Start; Complete Time: 11:37 sv 10/29 10:57 Order name: Labs collected and sent; Complete Time: 11:37 sv 10/29 10:57 Order name: O2 Per Protocol; Complete Time: 11:37 10/29 10:57 Order name: O2 Sat Monitoring; Complete Time: 11:37 sv Administered Medications: 12:06 Drug: NS 0.9% 1000 ml Route: IV; Rate: 1 bolus; Site: right antecubital; sv 13:00 Follow up: Response: No adverse reaction; IV Status: Completed infusion; IV Intake: sv 1000ml 12:06 Drug: Tylenol 650 mg Route: PO; sv 13:00 Follow up: Response: No adverse reaction sv 12:07 Drug: Reglan 10 mg Route: IVP; Site: right antecubital; sv 13:00 Follow up: Response: No adverse reaction sv 14:42 Drug: Rocephin 1 grams Route: IV; Rate: calculated rate; Site: right forearm; sv 14:46 Follow up: Response: No adverse reaction; IV Status: Completed infusion; IV Intake: 10mlsv 14:42 Drug: Motrin 600 mg Route: PO; sv 15:00 Follow up: Response: No adverse reaction sv Disposition: 15:44 Co-signature as Attending Physician, Yogesh Davidson MD I agree with the assessment and [facility] plan of care. Disposition: 10/30/19 14:49 Discharged to Home. Impression: Streptococcal pharyngitis. - Condition is Stable. - Discharge Instructions: Strep Throat. - Prescriptions for cefdinir 300 mg Oral capsule - take 1 capsule by ORAL route 2 times per day for 10 days; 20 capsule. - Medication Reconciliation Form, Thank You Letter, Antibiotic Education, Prescription Opioid Use form. - Work release form (10/30/19 15:48). hb - Follow up: Private Physician; When: 2 - 3 days; Reason: Recheck today's complaints, Continuance of care, Re-evaluation by your physician. Signatures: Dispatcher [employer] Ramya Sykes RN RN sv Anderson, Corey, MD MD cha Mickail, Joel, PA PA [facility] Erasto Jorgensen, PAPER MILL SUPERINTENDENT-C PAPER MILL SUPERINTENDENT-Cla1 Skylar Tarango RN RN Corrections: (The following items were deleted from the chart) 11:57 11:18 Chest Single View+RAD.RAD.BRZ ordered. [facility] 15:40 14:49 10/30/2019 14:49 Discharged to Home. Impression: Streptococcal pharyngitis. hb Condition is Stable. Forms are Medication Reconciliation Form, Thank You Letter, Antibiotic Education, Prescription Opioid Use. Follow up: Private Physician; When: 2 - 3 days; Reason: Recheck today's complaints, Continuance of care, Re-evaluation by your physician. dee
--- NOTE | 2019-10-30 14:49 | ER ---
Nurse's Notes [facility] Name: April Ford Age: 43 yrs Sex: Female : 1975 Arrival Date: 10/30/2019 Time: 10:54 Bed 14 Private MD: Diagnosis: Streptococcal pharyngitis Presentation: 10/29 10:47 Chief complaint: EMS states: SOB, fever, body aches, wheezing, non-productive cough, sv sore throat x 2 days. Temp-102 BS-115 HR-140s. Coronavirus screen: Surgical mask placed on patient. Patient moved to private room, placed in contact and droplet isolation with eye protection until further assessment. Patient reports a cough. Patient reports shortness of breath or difficulty breathing. Patient reports a measured and/or subjective temperature greater than 100.4F. Patient denies travel on a cruise ship or to a country the [facility] currently lists as an affected area. Patient denies contact with known and/or suspected case of COVID-19. Ebola Screen: No symptoms or risks identified at this time. Initial Sepsis Screen: Does the patient meet any 2 criteria? RR > 20 per min. HR > 90 bpm. Yes Does the patient have a suspected source of infection? No. Patient's initial sepsis screen is negative. Risk Assessment: Do you want to hurt yourself or someone else? Patient reports no desire to harm self or others. 10:47 Method Of Arrival: EMS: [facility] sv 10:47 Acuity: BALDEMAR 2 sv 10:58 Onset of symptoms was October 28, 2019. sv Triage Assessment: 10:47 General: Appears in no apparent distress. uncomfortable, well developed, Behavior is sv cooperative, appropriate for age, anxious. General: Reports fever for 1-2 days, feeling ill for 1-2 days. General: Reports body aches. Pain: Complains of pain in "all over" Pain currently is 10 out of 10 on a pain scale. Is continuous, Noted to be moaning, restless. Neuro: Level of Consciousness is awake, alert, obeys commands, Oriented to person, place, time, situation, Moves all extremities. Full function Gait is steady, Speech is normal. Cardiovascular: Patient's skin is warm and dry. Rhythm is sinus tachycardia. Respiratory: Reports shortness of breath on exertion cough that is non-productive, Airway is patent Respiratory effort is even, unlabored, Respiratory pattern is regular, tachypnea Breath sounds with wheezes bilaterally. Derm: Skin is intact, Skin is pink, warm \\T\\ dry. Musculoskeletal: Circulation, motion, and sensation intact. Range of motion: intact in all extremities. Historical: - Allergies: 11:32 Benadryl; sv 11:32 PENICILLINS; sv - PMHx: 11:32 Anxiety; Migraines; Panic Attacks; sv - PSHx: 11:32 Tubal ligation; sv - Immunization history:: Adult Immunizations. - Social history:: Smoking status: . Screenin:47 Abuse screen: Denies threats or abuse. Denies injuries from another. Nutritional sv screening: No deficits noted. Tuberculosis screening: No symptoms or risk factors identified. Fall Risk None identified. Assessment: 12:06 Reassessment: Patient appears in no apparent distress at this time. No changes from sv previously documented assessment. Patient and/or family updated on plan of care and expected duration. Pain level reassessed. Patient is alert, oriented x 3, equal unlabored respirations, skin warm/dry/pink. 13:30 Reassessment: Patient appears in no apparent distress at this time. No changes from sv previously documented assessment. Patient and/or family updated on plan of care and expected duration. Pain level reassessed. Patient is alert, oriented x 3, equal unlabored respirations, skin warm/dry/pink. 15:34 Reassessment: Patient appears in no apparent distress at this time. Patient and/or sv family updated on plan of care and expected duration. Pain level reassessed. Patient is alert, oriented x 3, equal unlabored respirations, skin warm/dry/pink. Patient states feeling better. Patient states symptoms have improved. Vital Signs: 10:58 BP 147 / 70; Pulse 137 MON; Resp 27; Temp 101.6(O); Pulse Ox 97% on R/A; sv 12:17 BP 120 / 62; Pulse 124; Resp 25; Pulse Ox 100% on R/A; Weight 92 kg; Height 5 ft. 6 in. hb (167.64 cm); 13:27 BP 121 / 61; Pulse 116; Resp 20; Temp 101.8(O); Pulse Ox 98% on R/A; mh5 14:37 BP 131 / 67; Pulse 111; Resp 18; Pulse Ox 98% on R/A; mh5 15:33 BP 135 / 78; Pulse 114; Resp 18; Pulse Ox 99% ; sv 12:17 Body Mass Index 32.74 (92.00 kg, 167.64 cm) hb 10:58 Sinus tachycardia sv ED Course: 10:50 Arm band placed on. sv 10:54 Patient arrived in ED. sv 10:54 Ramya Choi, CATA is Primary Nurse. sv 11:00 First set of blood cultures drawn by me. sv 11:09 Saurav Hunt PA is PHCP. jmm 11:09 Yogseh Davidson MD is Attending Physician. jmm 11:15 Second set of blood cultures drawn by me. Inserted saline lock: 20 gauge in right sv antecubital area, using aseptic technique. Blood collected. Flushed right antecubital with 5 ml normal saline. 11:16 Patient has correct armband on for positive identification. Bed in low position. Call mh5 light in reach. Side rails up X 1. site monitor on. Pulse ox on. NIBP on. 11:28 X-ray(s) taken. sv 11:32 Triage completed. sv 11:46 Chest Single View Sent. sv 11:59 Chest Single View In Process Unspecified. EDMS 12:07 Strep swab sent to lab. sv 12:[address] Scan. sv 12:21 EKG done, by ED staff, reviewed by Saurav BUENROSTRO. sv 12:56 CT Chest For PE Angio In Process Unspecified. EDMS 14:35 Diet: Patient given a regular meal tray. 5 15:33 Health Dept notified/ PUI # [id number]/ Aurelia in lab notified. eb 15:36 No provider procedures requiring assistance completed. IV discontinued, intact, sv bleeding controlled, No redness/swelling at site. Pressure dressing applied. Administered Medications: 12:06 Drug: NS 0.9% 1000 ml Route: IV; Rate: 1 bolus; Site: right antecubital; sv 13:00 Follow up: Response: No adverse reaction; IV Status: Completed infusion; IV Intake: sv 1000ml 12:06 Drug: Tylenol 650 mg Route: PO; sv 13:00 Follow up: Response: No adverse reaction sv 12:07 Drug: Reglan 10 mg Route: IVP; Site: right antecubital; sv 13:00 Follow up: Response: No adverse reaction sv 14:42 Drug: Rocephin 1 grams Route: IV; Rate: calculated rate; Site: right forearm; sv 14:46 Follow up: Response: No adverse reaction; IV Status: Completed infusion; IV Intake: 10mlsv 14:42 Drug: Motrin 600 mg Route: PO; sv 15:00 Follow up: Response: No adverse reaction sv Intake: 13:00 IV: 1000ml; Total: 1000ml. sv 14:46 IV: 10ml; Total: 1010ml. sv Outcome: 14:49 Discharge ordered by . violeta 15:39 Discharged to home ambulatory. hb 15:39 Condition: stable 15:39 Discharge instructions given to patient, Instructed on discharge instructions, follow up and referral plans. medication usage, Demonstrated understanding of instructions, follow-up care, medications, Prescriptions given X 1. 15:40 Patient left the ED. hb Addendum: 11/02/2019 14:11 Addendum: Other attmpted to contact pt regarding negative COVID-19 swab results. Voice d m5 mail stated phone was in shop and provided an alternate number. Alternate number called but mailbox was full. Left voice mail on original phone number provided. Signatures: Dispatcher [employer] Kendra Briseno RN RN dm5 Verde, Stephanie, RN RN sv Mickail, Joel, PA PA jmm Baxter, Heather, RN RN hb Martinez, Maria [facility] Casandra Oneil Corrections: (The following items were deleted from the chart) 10/29 11:57 11:46 To radiology for Chest Single View+RAD.[email or web address].[email or web address]. sv EDMS 13:53 12:17 BP 120 / 62; Pulse 124bpm; Resp 25bpm; Pulse Ox 100% RA; sv hb
[2019-10-30 16:06] VITALS: TEMP 101.8
[2019-10-30 16:09] VITALS: BP 135/78; O2SAT 99
--- NOTE | 2019-10-31 06:27 | EKG ---
Test Date: 2019-10-30 Test Time: 12:19:21 Religious Studies Professor: CALLIE MEASUREMENT RESULTS: Intervals: Rate: 120 ND: 116 QRSD: 78 QT: 314 QTc: 443 [place]: P: 62 ND: 116 QRS: 92 T: 38 INTERPRETIVE STATEMENTS: Sinus tachycardia Rightward axis Borderline ECG Compared to ECG 07/18/2015 23:09:56 Right-axis deviation now present Electronically Signed On 10-31-19 06:24:32 CDT by Jamison Lozano
== END 2019-10-30 15:40 | disposition home or self-care (01) ==
LOC: ER 10:52
DX: J02.0 Streptococcal pharyngitis (principal); Z20.828 Contact with and (suspected) exposure to other viral communicable diseases; Z88.0 Allergy status to penicillin; Z88.8 Allergy status to other drugs, medicaments and biological substances
CPT/HCPCS: 36415; 71045; 71275; 80048; 80076; 82805; 83605; 83690; 84145; 84484; 85025; 85379; 85610; 85730; 87040; 87081; 87205; 87804; 93005; 99285; J0696; J2765; J7030; Q9967

== ENCOUNTER 2020-01-09 13:09 | Emergency (ER) | payer OTHER, SELFPAY ==
[2020-01-09 15:57] LABS: Absolute Lymphocytes (CBC) 3.9 K/uL (0.7-4.9); Hematocrit 36.5 % (36.0-45.0); Lymphocytes % 41.3 % (15.3-44.8); MPV 9.7 fL (7.6-11.3); RBC Red Blood Cell Count 4.58 M/uL (3.86-4.86)
[2020-01-09] MEDS ORDERED: KETOROLAC 30 MG/ML INJ ONE (16:01)
[2020-01-09 16:11] LABS: Potassium 4.1 mmol/L (3.5-5.1)
[2020-01-09 16:27] LABS: Urine Blood 2+ (NEG); Urine Glucose NEGATIVE (NEG); Urine Protein NEGATIVE (NEG); Urine Specific Gravity 1.025 (1.005-1.030); Urine pH 5.5 (5.0-7.0)
[2020-01-09] MEDS ORDERED: DIAZEPAM 10 MG/2 ML INJ SYRINGE ONE (16:27)
[2020-01-09] MEDS ORDERED: DOXYCYCLINE 100 MG CAP PO ONE (16:28)
[2020-01-09] MEDS ORDERED: NA CHLORIDE 0.9% 1,000 ML ONE (16:29)
--- NOTE | 2020-01-09 18:41 | RAD REPORT ---
EXAM DESCRIPTION: CT - Stone Protocol - 01/09/2020 6:16 pm CLINICAL HISTORY: Abdominal pain. COMPARISON: 2017 TECHNIQUE: Computed axial tomography of the abdomen pelvis was obtained without oral or IV contrast. Lack of IV and oral contrast limits evaluation of solid organs, bowel, and vessels. Coronal reformat ashly images were obtained and reviewed. All CT scans are performed using dose optimization technique as appropriate and may include automated exposure control or mA/KV adjustment according to patient size. FINDINGS: A renal calculus is not seen. An ureteral calculus is not noted. A bladder calculus is not present. The liver, spleen, pancreas and adrenals appear grossly normal Tiny umbilical hernia There is no evidence of diverticulitis. Cylindrical structure within the vagina presumably a tampon a nd should be correlated clinically IMPRESSION: Negative for a genitourinary calculus
--- NOTE | 2020-01-09 19:01 | EDPHYS ---
Physician Documentation [facility] Name: April Ford Age: 44 yrs Sex: Female : 1975 Arrival Date: 01/09/2020 Time: 13:11 Bed 18 Private MD: ED Physician Marcus Cevallos HPI: 01/08 15:40 This 44 yrs old Female presents to ER via Ambulatory with complaints of snw Vaginal Bleeding, Abdominal Cramping, Pelvic Pain. 15:40 The patient presents with pelvic pain, vaginal bleeding that is heavy. Onset: The snw symptoms/episode began/occurred gradually, 4 day(s) ago, and became persistent. Modifying factors: The symptoms are alleviated by nothing. Associated signs and symptoms: The patient has no apparent associated signs or symptoms. Severity of symptoms: At their worst the symptoms were incapacitating, earlier today, in the emergency department the symptoms are unchanged. The patient is sexually active, reportedly has a single partner. The patient's method of control includes tubal ligation. The patient has not experienced similar symptoms in the past. The patient has not recently seen a physician. MODEL BUILDER DISPLAY: 13:57 LMP 01/06/2020 jl7 Historical: - Allergies: 13:57 Benadryl; jl7 13:57 PENICILLINS; jl7 - Home Meds: 13:57 Cymbalta oral oral [Active]; gabapentin Oral [Active]; jl7 - PMHx: 13:57 Anxiety; Migraines; Panic Attacks; jl7 - PSHx: 13:57 Tubal ligation; jl7 - Immunization history:: Adult Immunizations unknown. - Social history:: Smoking status: Patient reports the use of cigarette tobacco products, smokes one-half pack cigarettes per day. ROS: 15:40 Constitutional: Negative for fever, chills, and weight loss, Eyes: Negative for injury, snw pain, redness, and discharge, ENT: Negative for injury, pain, and discharge, Neck: Negative for injury, pain, and swelling, Cardiovascular: Negative for chest pain, palpitations, and edema, Respiratory: Negative for shortness of breath, cough, wheezing, and pleuritic chest pain, Back: Negative for injury and pain, MS/Extremity: Negative for injury and deformity, Skin: Negative for injury, rash, and discoloration, Neuro: Negative for headache, weakness, numbness, tingling, and seizure, Psych: Negative for depression, anxiety, suicide ideation, homicidal ideation, and hallucinations. 15:40 Abdomen/GI: Positive for abdominal pain, of the right lower quadrant and left lower quadrant. 15:40 : Positive for vaginal bleeding, menstrual abnormality. Exam: 15:38 Head/Face: Normocephalic, atraumatic. Eyes: Pupils equal round and reactive to light, snw extra-ocular motions intact. Lids and lashes normal. Conjunctiva and sclera are non-icteric and not injected. Cornea within normal limits. Periorbital areas with no swelling, redness, or edema. ENT: Nares patent. No nasal discharge, no septal abnormalities noted. Tympanic membranes are normal and external auditory canals are clear. Oropharynx with no redness, swelling, or masses, exudates, or evidence of obstruction, uvula midline. Mucous membranes moist. Neck: Trachea midline, no thyromegaly or masses palpated, and no cervical lymphadenopathy. Supple, full range of motion without nuchal rigidity, or vertebral point tenderness. No Meningismus. Chest/axilla: Normal chest wall appearance and motion. Nontender with no deformity. No lesions are appreciated. Cardiovascular: Regular rate and rhythm with a normal S1 and S2. No gallops, murmurs, or rubs. Normal PMI, no JVD. No pulse deficits. Respiratory: Lungs have equal breath sounds bilaterally, clear to auscultation and percussion. No rales, rhonchi or wheezes noted. No increased work of breathing, no retractions or nasal flaring. Back: No spinal tenderness. No costovertebral tenderness. Full range of motion. Skin: Warm, dry with normal turgor. Normal color with no rashes, no lesions, and no evidence of cellulitis. MS/ Extremity: Pulses equal, no cyanosis. Neurovascular intact. Full, normal range of motion. Neuro: Awake and alert, GCS 15, oriented to person, place, time, and situation. Cranial nerves II-XII grossly intact. Motor strength 5/5 in all extremities. Sensory grossly intact. Cerebellar exam normal. Normal gait. 15:38 Constitutional: The patient appears alert, awake, anxious, obese. 15:38 Abdomen/GI: Inspection: obese Bowel sounds: normal, Palpation: mild abdominal tenderness, in the right lower quadrant and left lower quadrant. Vital Signs: 13:53 BP 150 / 94; Pulse 86; Resp 20; Temp 97.4; Pulse Ox 97% ; Pain 8/10; jl7 16:33 BP 110 / 59; Pulse 81; Resp 20; Pulse Ox 99% on R/A; Pain 5/10; jr10 17:43 BP 116 / 68; Pulse 69; Resp 18; Pulse Ox 96% on R/A; jr10 18:50 BP 123 / 59; Pulse 72; Resp 20; Pulse Ox 97% on R/A; jr10 19:23 BP 118 / 66; Pulse 76; Resp 16; Temp 98; Pulse Ox 99% on R/A; rv MDM: 15:31 Patient medically screened. snw 19:03 Data reviewed: vital signs, nurses notes. Data interpreted: Pulse oximetry: on room air snw is 97 %. Interpretation: normal. Counseling: I had a detailed discussion with the patient and/or guardian regarding: the historical points, exam findings, and any diagnostic results supporting the discharge/admit diagnosis, lab results, radiology results, the need for outpatient follow up, to return to the emergency department if symptoms worsen or persist or if there are any questions or concerns that arise at home. Response to treatment: the patient's symptoms have mildly improved after treatment, the patient's symptoms have markedly improved after treatment. Special discussion: Based on the patient's Hx, exam, and Dx evaluation, there is no indication for emergent surgery or inpatient Tx. It is understood by the patient/guardian that if the Sx's persist or worsen they need to return immediately for re-evaluation. Based on the history and exam findings, there is no indication for further emergent testing or inpatient evaluation. I discussed with the patient/guardian the need to see the OB Gyne specialist for further evaluation of the symptoms. I discussed with the patient/guardian the need to see the primary care provider for further evaluation of the symptoms. 01/08 15:27 Order name: Abo/rh Typing; Complete Time: 16:16 snw 01/08 15:27 Order name: Basic Metabolic Panel; Complete Time: 16:12 snw 01/08 15:27 Order name: CBC with Diff; Complete Time: 16:04 snw 01/08 16:04 Order name: Urine Dipstick--Ancillary (enter results); Complete Time: 16:28 aa5 01/08 16:04 Order name: Urine --Ancillary (enter results); Complete Time: 16:28 aa5 01/08 17:43 Order name: CT Stone Protocol; Complete Time: 18:43 snw 01/08 15:27 Order name: Urine Test (obtain specimen); Complete Time: 16:36 snw 01/08 15:27 Order name: IV Saline Lock; Complete Time: 15:38 snw 01/08 15:27 Order name: Labs collected and sent; Complete Time: 15:38 snw 01/08 15:27 Order name: NPO; Complete Time: 15:38 snw 01/08 15:27 Order name: Urine Dipstick-Ancillary (obtain specimen); Complete Time: 16:36 snw Administered Medications: 16:15 Drug: TORadol 30 mg Route: IVP; Site: right antecubital; jr10 16:50 Follow up: Response: No adverse reaction ss 16:30 Drug: NS 0.9% 1000 ml Route: IV; Rate: 125 ml/hr; Site: right antecubital; jr10 19:23 Follow up: IV Status: Completed infusion rv 16:30 Drug: Valium 2 mg Route: IVP; Site: right antecubital; jr10 16:50 Follow up: Response: No adverse reaction ss 16:30 Drug: Doxycycline 100 mg Route: PO; jr10 16:50 Follow up: Response: No adverse reaction ss 19:15 Drug: Bentyl 20 mg Route: PO; rv 19:23 Follow up: Response: Medication administered at discharge. rv Disposition: 01/09 06:57 Co-signature as Attending Physician, Marcus Cevallos MD. rn Disposition: 01/09/20 19:01 Discharged to Home. Impression: Lower abdominal pain, unspecified, Urinary tract infection, site not specified. - Condition is Stable. - Discharge Instructions: Abdominal Pain, Adult, Urinary Tract Infection, Adult, Rehydration, Adult. - Prescriptions for Mobic 7.5 mg Oral Tablet - take 1 tablet by ORAL route once daily take with food; 20 tablet. Macrobid 100 mg Oral Capsule - take 1 capsule by ORAL route every 12 hours for 10 days; 20 capsule. - Medication Reconciliation Form, Thank You Letter, Antibiotic Education, Prescription Opioid Use form. - Work release form (01/09/20 19:25). rv - Follow up: Emergency Department; When: As needed; Reason: Worsening of condition. Follow up: Private Physician; When: 2 - 3 days; Reason: Recheck today's complaints, Continuance of care, Re-evaluation by your physician. Signatures: Dispatcher [employer] EDMS Ledy Landaverde, CURATORIAL SPECIALIST-C CURATORIAL SPECIALIST-Csnw Marcus Cevallos MD MD rn Leal, Jahala, RN RN jl7 Clint Franco RN RN Jaqueline Veloz RN RN jr10 Shari Hays RN ss Corrections: (The following items were deleted from the chart) 01/08 19:24 19:01 01/09/2020 19:01 Discharged to Home. Impression: Lower abdominal pain, rv unspecified; Urinary tract infection, site not specified. Condition is Stable. Forms are Medication Reconciliation Form, Thank You Letter, Antibiotic Education, Prescription Opioid Use. Follow up: Emergency Department; When: As needed; Reason: Worsening of condition. Follow up: Private Physician; When: 2 - 3 days; Reason: Recheck today's complaints, Continuance of care, Re-evaluation by your physician. snw
--- NOTE | 2020-01-09 19:01 | ER ---
Nurse's Notes [facility] Name: April Ford Age: 44 yrs Sex: Female : 1975 Arrival Date: 01/09/2020 Time: 13:11 Bed 18 Private MD: Diagnosis: Lower abdominal pain, unspecified;Urinary tract infection, site not specified Presentation: 01/08 13:53 Chief complaint: Patient states: Menstrual cramps x 3 days, worsening this morning; jl7 bleeding excessively the whole period. Coronavirus screen: Client denies travel out of the [place] in the last 14 days. At this time, the client does not indicate any symptoms associated with coronavirus-19. Ebola Screen: No symptoms or risks identified at this time. Initial Sepsis Screen: Does the patient meet any 2 criteria? No. Patient's initial sepsis screen is negative. Does the patient have a suspected source of infection? No. Patient's initial sepsis screen is negative. Risk Assessment: Do you want to hurt yourself or someone else? Patient reports no desire to harm self or others. Onset of symptoms was January 06, 2020. Care prior to arrival: None. Transition of care: patient was not received from another setting of care. 13:53 Method Of Arrival: Ambulatory [facility] 13:53 Acuity: BALDEMAR 3 jl7 Triage Assessment: 13:57 General: Appears in no apparent distress. uncomfortable, Behavior is cooperative, jl7 anxious. Pain: Complains of pain in suprapubic area, right lower quadrant and left lower quadrant Pain currently is 8 out of 10 on a pain scale. : Reports vaginal bleeding that is. STEWARD/STEWARDESS SECOND: 13:57 LMP 01/06/2020 jl7 Historical: - Allergies: 13:57 Benadryl; jl7 13:57 PENICILLINS; jl7 - Home Meds: 13:57 Cymbalta oral oral [Active]; gabapentin Oral [Active]; jl7 - PMHx: 13:57 Anxiety; Migraines; Panic Attacks; jl7 - PSHx: 13:57 Tubal ligation; jl7 - Immunization history:: Adult Immunizations unknown. - Social history:: Smoking status: Patient reports the use of cigarette tobacco products, smokes one-half pack cigarettes per day. Screenin:36 Abuse screen: Denies threats or abuse. Denies injuries from another. Nutritional jr10 screening: No deficits noted. Tuberculosis screening: No symptoms or risk factors identified. Fall Risk IV access (20 points). Assessment: 15:31 General: Appears distressed, uncomfortable, Behavior is restless. Pain: Complains of jr10 pain in right lower quadrant and left lower quadrant Pain currently is 10 out of 10 on a pain scale. Quality of pain is described as sharp, shooting, stabbing, Pain began 4 days ago Alleviated by nothing. Current management is with midol, last dose taken at 0900 this AM. Neuro: No deficits noted. Cardiovascular: No deficits noted. Denies chest pain. Respiratory: No deficits noted. Airway is patent Respiratory effort is even, unlabored, Respiratory pattern is regular, symmetrical. GI: Abdomen is obese, Bowel sounds present X 4 quads. Abdomen is tender to palpation in right lower quadrant and left lower quadrant. : bloody, pt reports menses that started 4 days ago with increased cramping and abnormal bleeding, pt denies any hx of uterine fibroids, ovarian cysts. EENT: No deficits noted. No signs and/or symptoms were reported regarding the EENT system. Derm: No deficits noted. No signs and/or symptoms reported regarding the dermatologic system. Musculoskeletal: No deficits noted. No signs and/or symptoms reported regarding the musculoskeletal system. 16:51 Reassessment: Patient is alert, oriented x 3, equal unlabored respirations, skin ss warm/dry/pink. Patient states feeling better. Patient states symptoms have improved. Vital Signs: 13:53 BP 150 / 94; Pulse 86; Resp 20; Temp 97.4; Pulse Ox 97% ; Pain 8/10; jl7 16:33 BP 110 / 59; Pulse 81; Resp 20; Pulse Ox 99% on R/A; Pain 5/10; jr10 17:43 BP 116 / 68; Pulse 69; Resp 18; Pulse Ox 96% on R/A; jr10 18:50 BP 123 / 59; Pulse 72; Resp 20; Pulse Ox 97% on R/A; jr10 19:23 BP 118 / 66; Pulse 76; Resp 16; Temp 98; Pulse Ox 99% on R/A; rv ED Course: 13:11 Patient arrived in ED. ag5 13:56 Triage completed. jl7 13:57 Arm band placed on right wrist. Patient placed in waiting room, Patient notified of jl7 wait time. 15:12 Jaqueline Olivarez, RN is Primary Nurse. jr10 15:26 Ledy Landaverde F[facility]-C [facility]. snw 15:26 Marcus Cevallos MD is Attending Physician. snw 15:26 No provider procedures requiring assistance completed. Inserted saline lock: 20 gauge jr10 in right antecubital area, using aseptic technique. IV is patent, is intact, with good blood return, Flushed. 15:36 Patient has correct armband on for positive identification. Placed in gown. Bed in low jr10 position. Call light in reach. Side rails up X2. Pulse ox on. NIBP on. 18:16 CT Stone Protocol In Process Unspecified. EDMS 19:24 IV discontinued, intact, bleeding controlled, No redness/swelling at site. Pressure rv dressing applied. Administered Medications: 16:15 Drug: TORadol 30 mg Route: IVP; Site: right antecubital; jr10 16:50 Follow up: Response: No adverse reaction ss 16:30 Drug: NS 0.9% 1000 ml Route: IV; Rate: 125 ml/hr; Site: right antecubital; jr10 19:23 Follow up: IV Status: Completed infusion rv 16:30 Drug: Valium 2 mg Route: IVP; Site: right antecubital; jr10 16:50 Follow up: Response: No adverse reaction ss 16:30 Drug: Doxycycline 100 mg Route: PO; jr10 16:50 Follow up: Response: No adverse reaction ss 19:15 Drug: Bentyl 20 mg Route: PO; rv 19:23 Follow up: Response: Medication administered at discharge. rv Outcome: 19:01 Discharge ordered by . snw 19:24 Discharged to home ambulatory. rv 19:24 Condition: good 19:24 Discharge instructions given to patient, Instructed on discharge instructions, follow up and referral plans. medication usage, Demonstrated understanding of instructions, follow-up care, medications, Prescriptions given X 2. 19:24 Patient left the ED. rv Signatures: Dispatcher [employer] EDMS Ledy Landaverde FNP-C FNP-[place] Shari Hays RN RN ss Erik Michael RN RN jl7 Clint Franco RN RN rv Lucrecia Brar ag5 Jaqueline Olivarez, RN RN jr10
[2020-01-09] MEDS ORDERED: DICYCLOMINE HCL 10 MG CAP ONE (19:16)
[2020-01-14 15:30] VITALS: BP 118/66; TEMP 98; O2SAT 99
== END 2020-01-09 19:24 | disposition home or self-care (01) ==
LOC: ER 13:09
DX: N39.0 Urinary tract infection, site not specified (principal); F41.9 Anxiety disorder, unspecified; F17.210 Nicotine dependence, cigarettes, uncomplicated; Z88.0 Allergy status to penicillin; Z88.8 Allergy status to other drugs, medicaments and biological substances
CPT/HCPCS: 36415; 74176; 76377; 80048; 81003; 81025; 85025; 86900; 86901; 96361; 96374; 96375; 99284; J3360; J7030

== ENCOUNTER 2021-02-28 11:38 | Emergency (ER) | payer OTHER, SELFPAY ==
[2021-02-28 12:39] LABS: Absolute Lymphocytes (CBC) 2.8 K/uL (0.7-4.9); Basophils % 0.5 % (0-1.3); Hematocrit 35.5 % (36.0-45.0); Lymphocytes % 30.2 % (15.3-44.8); RBC Red Blood Cell Count 4.55 M/uL (3.86-4.86)
[2021-02-28 12:47] LABS: Protime INR 1.02
[2021-02-28 12:59] LABS: ALT/SGPT 28 U/L (12-78); AST/SGOT 13 U/L (15-37); Albumin 3.4 g/dL (3.4-5.0); Alkaline Phosphatase 134 U/L (45-117); BUN Blood Urea Nitrogen 11 mg/dL (7-18); Bicarbonate 24 mmol/L (21-32); Bilirubin Direct < 0.1 mg/dL (0-0.2); Bilirubin Total 0.2 mg/dL (0.2-1.0); Glucose Level 124 mg/dL (74-106); Magnesium 1.9 mg/dL (1.8-2.4); Potassium 4.1 mmol/L (3.5-5.1); Protein, Total 7.6 g/dL (6.4-8.2); Sodium Level 140 mmol/L (136-145); Troponin (Emerg Dept Use Only) < 0.02 ng/mL (0.0-0.045)
[2021-02-28 13:12] LABS: NT PRO-BNP < 5 pg/mL (<125)
[2021-02-28] MEDS ORDERED: MORPHINE 4 MG/ML SYR ONE ×2 (13:17→18:06)
[2021-02-28] MEDS ORDERED: ONDANSETRON 4 MG/2 ML VIAL ONE (13:17)
--- NOTE | 2021-02-28 13:30 | RAD REPORT ---
EXAM DESCRIPTION: RAD - Chest Single View - 02/28/2021 12:27 pm CLINICAL HISTORY: CHEST PAIN COMPARISON: Portable October 2019 TECHNIQUE: AP portable chest image was obtained 02/28/2021 12:27 pm . FINDINGS: Lungs are clear. Heart and vasculature are normal. No measurable pleural effusion and no p neumothorax. No acute bony abnormality seen. No acute aortic findings suspected. IMPRESSION: No acute cardiopulmonary process. No significant change from comparison study.
[2021-02-28] MEDS ORDERED: LORazepam 2 MG/ML VIAL ONE (14:52)
[2021-02-28] MEDS ORDERED: FAMOTIDINE 20 MG/2 ML VIAL IV ONE (17:07)
[2021-02-28] MEDS ORDERED: ASPIRIN 81 MG CHEWABLE TABLET ONE (17:07)
--- NOTE | 2021-02-28 17:24 | RAD REPORT ---
EXAM DESCRIPTION: CT - Angio Aorta For Dissection - 02/28/2021 4:57 pm CLINICAL HISTORY: CHEST PAIN COMPARISON: None. TECHNIQUE: Dynamically enhanced 3 mm thick images of the chest, abdomen, and upper pelvis were obtai harsha during administration of approximately 150mL Isovue 370 IV contrast. Sagittal and coronal reconst ruction images were generated using MIP and reviewed. Exam utilizes a protocol to evaluate entire cou rse of the aorta. All CT scans are performed using dose optimization technique as appropriate and may include automated exposure control or mA/KV adjustment according to patient size. FINDINGS: Aorta is normal in diameter with no dissection or other acute aortic findings. Reconstruct ion images show no significant findings. Pulmonary arteries are normal as well. No cardiomegaly, pericardial thickening or pericardial effusio n. No acute infiltrate or mass the lung parenchyma. A 9 millimeter noncalcified nodule left base abuttin g the diaphragmatic pleura has not change from the examination 1 year earlier. No pleural thickening, pleural effusion or pneumothorax. No abnormal mediastinal or hilar mass or lymphadenopathy seen. No chest wall mass or abnormal axillar y lymphadenopathy. Celiac, SMA and renal arteries show no suspicious findings. Solid abdominal viscera and bowel show no significant findings. Liver shows fatty infiltration pattern. No mass or abnormal lymphadenopathy. No free air, free fluid or inflammatory stranding. No urinary bladder abnormality. Heterogeneity of the left-side uterus is believed to be due to fibroid. A 15 millimeter oval area of hyperdensity in t he fundal portion of the endometrial cavity has not change from prior imaging. This may be stable gmoez yp or possibly submucosal fibroid projecting into the endometrial cavity. This is not grossly differe nt from 2018 but can be evaluated with follow-up outpatient endovaginal ultrasound. IMPRESSION: Negative CT scan of the aorta. No other acute or emergent findings on chest, abdomen and upper pelvis examination. Possible submucosal fibroid or endometrial polyp noted not grossly different from 2018. This can be b gunnar evaluated with follow-up outpatient endovaginal sonography.
--- NOTE | 2021-02-28 17:34 | ER ---
Nurse's Notes [facility] Name: April Ford Age: 45 yrs Sex: Female : 1975 Arrival Date: 02/28/2021 Time: 11:40 Bed 19 Private MD: Diagnosis: Chest pain, unspecified Presentation: 02/28 11:55 Chief complaint: Patient states: heart palpitations that began this morning. Pt also aa5 reports chest pain and SOB, and also reports tingling to dipika arms. Coronavirus screen: At this time, the client does not indicate any symptoms associated with coronavirus-19. Ebola Screen: Patient negative for fever greater than or equal to 101.5 degrees Fahrenheit, and additional compatible Ebola Virus Disease symptoms. Initial Sepsis Screen: Does the patient meet any 2 criteria? HR > 90 bpm. Does the patient have a suspected source of infection? No. Patient's initial sepsis screen is negative. Risk Assessment: Do you want to hurt yourself or someone else? Patient reports no desire to harm self or others. Onset of symptoms was February 28, 2021. 11:55 Acuity: BALDEMAR 3 aa5 11:55 Method Of Arrival: Wheelchair aa5 Triage Assessment: 12:00 General: Appears in no apparent distress. uncomfortable, Behavior is cooperative, bp appropriate for age, anxious. Pain:. Historical: - Allergies: 11:56 Benadryl; aa5 11:56 PENICILLINS; aa5 - PMHx: 11:56 Anxiety; Migraines; Panic Attacks; aa5 - Immunization history:: Client reports receiving the 2nd dose of the Covid vaccine. - Social history:: Smoking status: Patient reports the use of cigarette tobacco products, smokes one pack cigarettes per day. Screenin:00 Abuse screen: Denies threats or abuse. Denies injuries from another. Nutritional bp screening: No deficits noted. Tuberculosis screening: No symptoms or risk factors identified. Fall Risk None identified. Assessment: 12:00 General: SEE TRIAGE NOTE. bp 14:00 Reassessment: No changes from previously documented assessment. Patient and/or family bp updated on plan of care and expected duration. Pain level reassessed. Pain: Pain does not radiate. Pain began 2-3 days ago. Cardiovascular: Rhythm is sinus rhythm. 16:30 Reassessment: No changes from previously documented assessment. Patient and/or family bp updated on plan of care and expected duration. Pain level reassessed. Patient is alert, oriented x 3, equal unlabored respirations, skin warm/dry/pink. HOSPITALIST AT B/S. 17:49 Reassessment: PT DECLINING ADMIT, PROVIDER INFORMED. bp Vital Signs: 11:55 BP 120 / 90; Pulse 99; Resp 20 S; Temp 98.2(O); Pulse Ox 95% on R/A; Weight 119.29 kg aa5 (R); Height 5 ft. 6 in. (167.64 cm) (R); Pain 10/10; 12:21 BP 124 / 80; Pulse 100; Resp 20; Temp 98.7; Pulse Ox 96% on R/A; mh5 13:34 BP 128 / 77; Pulse 72; Resp 16; Pulse Ox 94% ; bp 14:30 BP 130 / 77; Pulse 82; Resp 24; Pulse Ox 94% ; bp 15:30 BP 116 / 70; Pulse 83; Resp 15; Pulse Ox 97% ; bp 16:30 BP 111 / 67; Pulse 77; Resp 11; Pulse Ox 96% ; bp 17:30 BP 108 / 54; Pulse 80; Resp 14; Pulse Ox 97% ; bp 11:55 Body Mass Index 42.45 (119.29 kg, 167.64 cm) aa5 ED Course: 11:40 Patient arrived in ED. as 11:55 Arm band placed on. aa5 11:56 Triage completed. aa5 11:59 Renny Terrell, CATA is Primary Nurse. bp 11:59 Saurav Hunt PA is PHCP. [facility] 11:59 Yogesh Davidson MD is Attending Physician. [facility] 12:00 Patient maintains SpO2 saturation greater than 95% on room air. bp 12:19 D-Dimer Sent. 5 12:19 Basic Metabolic Panel Sent. 5 12:19 CBC with Diff Sent. 5 12:19 LFT's Sent. 5 12:19 Magnesium Sent. 5 12:19 NT PRO-BNP Sent. 5 12:20 Patient has correct armband on for positive identification. Bed in low position. Call [facility] light in reach. Side rails up X 1. Adult w/ patient. Pillow given. clinical research monitor on. Pulse ox on. NIBP on. 12:20 PT-INR Sent. mh5 12:20 Troponin (emerg Dept Use Only) Sent. [facility] 12:20 Initial lab(s) drawn, by tn, sent to lab. EKG done, by ED staff, reviewed by Yogesh Davidson MD. Inserted saline lock: 18 gauge in right antecubital area, using aseptic technique. Blood collected. 12:27 XRAY Chest (1 view) In Process Unspecified. EDMS 16:56 CT Aorta for Dissection In Process Unspecified. EDMS 17:30 No provider procedures requiring assistance completed. bp 17:34 Jamison Lozano MD is Referral Physician. jmm 18:54 IV discontinued, intact, bleeding controlled, No redness/swelling at site. Pressure bp dressing applied. Administered Medications: 12:50 Drug: morphine 4 mg Route: IVP; Site: right antecubital; bp 17:47 Follow up: Response: Pain is decreased bp 12:50 Drug: Zofran (Ondansetron) 4 mg Route: IVP; Site: right antecubital; bp 17:47 Follow up: Response: No adverse reaction bp 14:29 Drug: Ativan (LORazepam) 1 mg Route: IVP; Site: right antecubital; aa5 17:47 Follow up: Response: Anxiety decreased bp 16:40 Drug: Aspirin Chewable Tablet 324 mg Route: PO; bp 17:47 Follow up: Response: No adverse reaction bp 16:40 Drug: Pepcid (famotidine) 20 mg Route: IVP; Site: right antecubital; bp 17:47 Follow up: Response: No adverse reaction bp 17:45 Drug: morphine 4 mg Route: IVP; Site: right antecubital; bp 17:48 Follow up: Response: Pain is decreased bp Outcome: 17:34 Discharge ordered by . violeta 18:53 Discharged to home ambulatory, with family. bp 18:53 Condition: stable 18:53 Discharge instructions given to patient, family, Instructed on discharge instructions, follow up and referral plans. medication usage, Demonstrated understanding of instructions, follow-up care, medications, Prescriptions given X 3. 18:54 Patient left the ED. bp Signatures: Dispatcher [employer] EDMS Saurav Hunt PA PA jmm Martinez, Amelia as Calderon, Audri, RN RN aa5 Arnaldo, Nanci mh5 Nidhi, Renny, RN RN bp Corrections: (The following items were deleted from the chart) 11:57 11:55 Initial Sepsis Screen: Does the patient meet any 2 criteria? No. Patient's aa5 initial sepsis screen is negative. Does the patient have a suspected source of infection? No. Patient's initial sepsis screen is negative. aa5
--- NOTE | 2021-02-28 17:34 | EDPHYS ---
Physician Documentation [facility] Name: April Ford Age: 45 yrs Sex: Female : 1975 Arrival Date: 02/28/2021 Time: 11:40 Bed 19 Private MD: ED Physician Yogesh Davidson HPI: 02/28 12:10 This 45 yrs old Female presents to ER via Wheelchair with complaints of Chest jmm Pain. 12:10 Onset: The symptoms/episode began/occurred acutely, today, at 11:00. Associated signs jmm and symptoms: Pertinent positives: chest pain, Pertinent negatives: abdominal pain, fever. This is a 44-year-old female with history of anxiety the presents emerged department with complaints of chest pain beginning this morning around 11 AM. Patient states that she woke up around 8 AM ate breakfast and went back to sleep. She awoke with chest pain. States the chest pain radiates to her back as well as into her lower back. Patient does state that she smokes cigarettes for 30 years and has a family history of coronary artery disease.. Historical: - Allergies: 11:56 Benadryl; aa5 11:56 PENICILLINS; aa5 - PMHx: 11:56 Anxiety; Migraines; Panic Attacks; aa5 - Immunization history:: Client reports receiving the 2nd dose of the Covid vaccine. - Social history:: Smoking status: Patient reports the use of cigarette tobacco products, smokes one pack cigarettes per day. ROS: 12:10 Constitutional: Negative for fever, chills, and weight loss. jmm 12:10 Cardiovascular: Positive for chest pain. 12:10 All other systems are negative. Exam: 12:10 Head/Face: atraumatic. Eyes: EOMI, no conjunctival erythema appreciated ENT: Moist jmm Mucus Membranes Neck: Trachea midline, Supple 12:10 Cardiovascular: Regular rate and rhythm. No edema appreciated Respiratory: Normal respirations, no respiratory distress appreciated Abdomen/GI: Non distended, soft Back: Normal ROM Skin: General appearance color normal MS/ Extremity: Moves all extremities, no obvious deformities appreciated, no edema noted to the lower extremities Neuro: Awake and alert, normal gait Psych: Behavior is normal, Mood is normal, Patient is cooperative and pleasant 12:10 Constitutional: The patient appears alert, awake, anxious, uncomfortable. 12:10 Chest/axilla: Palpation: tenderness, that is moderate. Vital Signs: 11:55 BP 120 / 90; Pulse 99; Resp 20 S; Temp 98.2(O); Pulse Ox 95% on R/A; Weight 119.29 kg aa5 (R); Height 5 ft. 6 in. (167.64 cm) (R); Pain 10/10; 12:21 BP 124 / 80; Pulse 100; Resp 20; Temp 98.7; Pulse Ox 96% on R/A; mh5 13:34 BP 128 / 77; Pulse 72; Resp 16; Pulse Ox 94% ; bp 14:30 BP 130 / 77; Pulse 82; Resp 24; Pulse Ox 94% ; bp 15:30 BP 116 / 70; Pulse 83; Resp 15; Pulse Ox 97% ; bp 16:30 BP 111 / 67; Pulse 77; Resp 11; Pulse Ox 96% ; bp 17:30 BP 108 / 54; Pulse 80; Resp 14; Pulse Ox 97% ; bp 11:55 Body Mass Index 42.45 (119.29 kg, 167.64 cm) aa5 MDM: 12:10 Patient medically screened. [facility] 17:33 Data reviewed: vital signs, nurses notes. Counseling: I had a detailed discussion with [facility] the patient and/or guardian regarding: the historical points, exam findings, and any diagnostic results supporting the discharge/admit diagnosis, lab results, radiology results, the need for outpatient follow up, the need for further work-up and treatment in the hospital, to return to the emergency department if symptoms worsen or persist or if there are any questions or concerns that arise at home. Refusal of service: The patient/guardian displays adequate decision making capability and despite a detailed discussion of alternatives, benefits, risks, and consequences refuses: Admission to the hospital for further work-up and treatment. 02/28 12:10 Order name: Basic Metabolic Panel; Complete Time: 13:13 [facility] 02/28 12:10 Order name: CBC with Diff; Complete Time: 12:40 [facility] 02/28 12:10 Order name: LFT's; Complete Time: 13:13 [facility] 02/28 12:10 Order name: Magnesium; Complete Time: 13:13 [facility] 02/28 12:10 Order name: NT PRO-BNP; Complete Time: 13:13 [facility] 02/28 12:10 Order name: PT-INR; Complete Time: 12:55 [facility] 02/28 12:10 Order name: Troponin (emerg Dept Use Only); Complete Time: 13:13 [facility] 02/28 12:10 Order name: XRAY Chest (1 view); Complete Time: 13:31 [facility] 02/28 12:10 Order name: D-Dimer; Complete Time: 12:55 [facility] 02/28 16:35 Order name: CT Aorta for Dissection; Complete Time: 17:29 [facility] 02/28 12:10 Order name: EKG; Complete Time: 12:11 [facility] 02/28 12:10 Order name: Cardiac monitoring; Complete Time: 12:18 [facility] 02/28 12:10 Order name: EKG - Nurse/Tech; Complete Time: 12:18 [facility] 02/28 12:10 Order name: IV Saline Lock; Complete Time: 12:19 [facility] 02/28 12:10 Order name: Labs collected and sent; Complete Time: 12:19 [facility] 02/28 12:10 Order name: O2 Per Protocol; Complete Time: 12:19 [facility] 02/28 12:10 Order name: O2 Sat Monitoring; Complete Time: 12:19 jm Administered Medications: 12:50 Drug: morphine 4 mg Route: IVP; Site: right antecubital; bp 17:47 Follow up: Response: Pain is decreased bp 12:50 Drug: Zofran (Ondansetron) 4 mg Route: IVP; Site: right antecubital; bp 17:47 Follow up: Response: No adverse reaction bp 14:29 Drug: Ativan (LORazepam) 1 mg Route: IVP; Site: right antecubital; aa5 17:47 Follow up: Response: Anxiety decreased bp 16:40 Drug: Aspirin Chewable Tablet 324 mg Route: PO; bp 17:47 Follow up: Response: No adverse reaction bp 16:40 Drug: Pepcid (famotidine) 20 mg Route: IVP; Site: right antecubital; bp 17:47 Follow up: Response: No adverse reaction bp 17:45 Drug: morphine 4 mg Route: IVP; Site: right antecubital; bp 17:48 Follow up: Response: Pain is decreased bp Disposition: 03/01 16:21 Co-signature as Attending Physician, Yogesh Davidson MD I agree with the assessment and [place] plan of care. Disposition Summary: 02/28/21 17:34 Discharge Ordered Location: Home [facility] Condition: Stable jmm Diagnosis - Chest pain, unspecified jmm Followup: [facility] - With: Jamison Lozano MD - When: 2 - 3 days - Reason: Recheck today's complaints, Continuance of care, Re-evaluation by your physician Discharge Instructions: - Discharge Summary Sheet [facility] - Nonspecific Chest Pain, Adult [facility] Forms: - Medication Reconciliation Form [facility] - Thank You Letter [facility] - Antibiotic Education [facility] - Prescription Opioid Use [facility] Prescriptions: - Ibuprofen 800 mg Oral Tablet - take 1 tablet by ORAL route every 8 hours As needed take with food; 30 tablet; [facility] Refills: 0, Product Selection Permitted - Pepcid 20 mg Oral Tablet - take 1 tablet by ORAL route every 12 hours for 10 days; 20 tablet; Refills: 0, [facility] Product Selection Permitted - orphenadrine citrate 100 mg Oral Tablet Sustained Release - take 1 tablet by ORAL route 2 times per day As needed; 20 tablet; Refills: 0, [facility] Product Selection Permitted Signatures: Dispatcher [employer] Yogesh Johnson MD MD cha Mickail, Joel, PA PA [facility] Janeth Aceves, RN RN aa5 Renny Terrell, RN RN bp
--- NOTE | 2021-02-28 17:47 | P.CNS ---
Date of Consult: 02/28/21 Reason for Consult: Chest pain Chief Complaint: Chest pain, shortness of breath History of Present Illness: 45-year-old female, PMH: Anxiety, depression, panic attacks. Presented to ED due to chest pain, shortness of breath. Chest pain described as a pounding sensation substernal, with pressure-like sensation on her chest - feels like heavy pressure on her chest. She feels that this pain radiates towards her back, and feeling bilateral hand numbness. Worsened with respiration, pain medication improved. Has not had sensation like this before. Denies any drug use. Does not feel like her prior panic/anxiety attack. She woke up this morning, ate breakfast, went back to bed, and woke up with this pain. In the ED, work-up unremarkable. Troponin negative, EKG without ischemic changes. ED provider called me for possible observation. Allergies diphenhydramine [From Benadryl] Allergy (Unverified 12/12/15 20:20) Unknown hydrocodone Allergy (Verified 07/10/14 20:39) Hives Penicillins Allergy (Verified 07/10/14 20:39) Rash Home Medications: NK [No Home Meds] 07/10/14 - Past Medical/Surgical History Diabetic: No -: anxiety -: L. ankle repair -: tubal - Family History Mother Medical History: Heart disease - Social History Smoking Status: Current every day smoker Alcohol use: No CD- Drugs: No Caffeine use: Yes Review of Systems 10-point ROS is otherwise unremarkable Physical Examination General: Alert, In no apparent distress, Oriented x3 HEENT: Sclerae nonicteric Neck: Supple Respiratory: Clear to auscultation bilaterally, Normal air movement Cardiovascular: No edema, Regular rate/rhythm Gastrointestinal: Soft and benign, Non-distended, No tenderness Musculoskeletal: No erythema, Tenderness (chest wall, recreates pain) Integumentary: No rashes, No tenderness/swelling Neurological: Normal speech, Normal strength at 5/5 x4 extr, Normal affect Laboratory Data (last 24 hrs) 02/28/21 12:15: PT 11.7, INR 1.02 02/28/21 12:15: WBC 9.40, Hgb 11.4 L, Hct 35.5 L, Plt Count 404 02/28/21 12:15: Sodium 140, Potassium 4.1, BUN 11, Creatinine 1.04, Glucose 124 H, Magnesium 1.9, Total Bilirubin 0.2, AST 13 L, ALT 28, Alkaline Phosphatase 134 H Physician Review Additional Text: Problem list Chest pain Anxiety Depression Panic disorder EKG without any ischemic changes, troponin negative CXR negative Recommended CT dissection protocol as patient has heavy throbbing pain radiating towards her back, she is a smoker Mother with cardiac arrest in her 30s Chest wall is tender, recreates her pain with palpation Unlikely to be cardiac related Discussed observation overnight and trending cardiac enzymes Patient adamantly refused admission, states she wants to be discharged home with pain medication States she would return to the ED if pain worsens Time Spent Managing Pts care (In Minutes): 60
[2021-02-28 19:00] VITALS: TEMP 98.7
[2021-02-28 19:06] VITALS: BP 108/54; O2SAT 97
--- NOTE | 2021-03-02 09:01 | EKG ---
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
== END 2021-02-28 18:54 | disposition home or self-care (01) ==
LOC: ER 11:38
DX: R07.9 Chest pain, unspecified (principal); F41.8 Other specified anxiety disorders; F17.210 Nicotine dependence, cigarettes, uncomplicated; Z88.0 Allergy status to penicillin; Z88.8 Allergy status to other drugs, medicaments and biological substances; Z82.49 Family history of ischemic heart disease and other diseases of the circulatory system
CPT/HCPCS: 93005; 85025; 80048; 36415; 83735; 85610; 85379; 80076; 84484; 83880; 71275; 74175; 71045; 96375; 96374; 99285; Q9967; J2405

== ENCOUNTER 2021-05-20 17:08 | Emergency (ER) | payer OTHER, SELFPAY ==
--- OUTSIDE RECORDS SUMMARY | 2021-05-20 17:14 | XMS REPORT | Continuity of Care Document ---
:1975 Author Organization [facility] t Address [address] [address] Care Team Providers Name Role Phone Reema Puri Attending Clinician Unavailable Terry, Arin Admitting Clinician Unavailable Payers Payer Name Policy Type Policy Number Effective Date Expiration Date S tam JAMES DISABILITY [id number] 2014 DETERMINATION SVCS 00:00:00 Problems This patient has no known problems. Allergies, Adverse Reactions, Alerts Allergy Allergy Status Severity Reaction(s) Onset Inactive Treating Comm ents Source Name Type Date Date Clinician diphenhy DA Active SV HIVES AROUND 2020-05 HC A dramine HER BODY 06-13 [place] 00:00: d 00 [facility] Penicill DA Active U UNKNOWN 2020-05 [facility] ins ACCORDING TO 06-13 Pear kelsy PATIENT 00:00: d BEING TOLD 00 Medica l SINCE SHE Center WAS A CHIL PENICILL DRUG Active Unknown-Cmnt Un rome IN INGREDI 06-23 ity of 00:00: [address] NO KNOWN Drug Active Univers ALLERGIE Class ity of S [facility] Medications This patient has no known medications. Procedures This patient has no known procedures. Encounters Start End Encounter Admission Attending Care Care Encounter Source Date/Time Date/Time Type Type Clinicians Facility Department ID 2021-04-13 2021-04-13 Outpatient PARMINDER Ziegler [id number] [facility] 09:40:00 09:40:00 Paras [id number] Arlette romo [facility] 2021-04-132021-04-13 Outpatient EL SONY Puri [facility] [id number] [facility] 09:40:00 09:40:00 Paras Peng [facility] 2020-06-23 2020-06-23 Emergency X [facility] ERT [id number] Univers 11:08:00 11:08:00 [facility] Results Test Description Test Time Test Comments Results Result Comments Source - XR CHEST 1 V 2021-04-13 10:53:00 [facility] 1975 Sex: F Name: JEM WILSON [facility] : 1975 Age/S: 45 / F [id number] Unit #: [id number] Loc: [place] [address] Phys: Paras Puri MD Acct: [id number] Dis Date: Status: [facility] PHONE #: [phone] Exam Date: 04/13/2021 1035 FAX #: Reason: PRE PROCEDURE EXAMS: CPT: [id number] XR CHEST 1 V 48744 Fluoro Time: DAP (Gy m2): Air Kerma (mGy): LOCATION: T18 EXAM: CHEST 1 VIEW INDICATION: , PRE PROCEDURE COMPARISON: None. TECHNIQUE: AP chest radiograph. FINDINGS: Lungs are clear bilaterally without effusion. Heart is normal in size. Bones and peripheral soft tissues are unremarkable. IMPRESSION: Lungs are clear. No acute abnormality. at 1053 Reported and signed by: Evan Willis M.D. CC: Paras Puri MD; Dianne Stewart MD PAGE 1 Signed Report Name: JEM WILSON : 1975 Age/S: 45 / F [id number] Unit #: [id number] Loc: [place] [address] Phys: Paras Puri MD Acct: [id number] Dis Date: Status: REG SDC PHONE #: [phone] Exam Date: 04/13/2021 1035 FAX #: Reason: PRE PROCEDURE EXAMS: CPT: [id number] XR CHEST 1 V [id number] Fluoro Time: DAP (Gy m2): Air Kerma (mGy): <Continued> Technologist: Bryanna Voss RT (R)(CT) Trnscb Date/Time: 04/13/2021 (2993) [email or web address] Orig Print D/T: S: 04/13/2021 (7483) PAGE 2 Signed Report COMPREHENSIVE METABOLIC PANEL 2021-04-13 10:51:00 Test Item Value Reference Range Interpretation Comme nts SODIUM (test code = NA) 139 mmol/L 134-147 N POTASSIUM (test code = K) 4.2 mmol/L 3.4-5.0 N CHLORIDE (test code = CL) 111 mmol/L 100-108 H CARBON DIOXIDE (test code = CO2) 22 mmol/L 21-32 N ANION GAP (test code = GAP) 6.0 GAP calc 4.0-15.0 N GLUCOSE (test code = GLU) 84 MG/DL 70-110 N BLOOD UREA NITROGEN (test code = BUN) 12 MG/DL 7-18 N GLOMERULAR FILTRATION RATE (test code = GFR) 57 estGFR >60 L CREATININE (test code = CREAT) 1.1 MG/DL 0.6-1.0 H TOTAL PROTEIN (test code = PROT) 7.9 G/DL 6.4-8.2 N ALBUMIN (test code = ALB) 3.6 G/DL 3.4-5.0 N GLOBULIN (test code = GLOB) 4.3 GM/dL ALBUMIN/GLOBULIN RATIO (test code = A/G) 0.8 RATIO 1.2-2.2 L CALCIUM (test code = CA) 9.0 MG/DL 8.5-10.1 N BILIRUBIN TOTAL (test code = BILT) 0.30 MG/DL 0.2-1.2 N SGOT/AST (test code = AST) 12 Unit/L 15-37 L SGPT/ALT (test code = ALT) 19 Unit/L 12-78 N ALKALINE PHOSPHATASE TOTAL (test code = ALKP) 141 Unit/L 45-117 H PROTHROMBIN [id number] 10:42:00 Test Item Value Reference Range Interpretation Comments PT PATIENT (test 12.2 SECONDS 9.3-12.9 N code = PTP) INTERNATIONAL NORMAL 1.09 INR Unit 0.8-1.2 N TARGET RATIO (test code = INR BY IN DICATION INR) Indication INR1. Prophyl axis of venous thrombos is 2.0 - 3. 0 (orthopedic bishnu noemí), Prophylaxis of venous thrombos is (other than hig h-risk surgery), Leida tment of Deep Vein Thrombosis/Pulm onary Embolism, Preve ntion of systemic emb olism - Tissue heart va lves, Acute Myocardia l Infarction (to prevent systemic embo lism), Valvular heart disease, Acut e Myocardial Infa rction (to prevent s ystemic embolism), Valv ular heart disease, Atrial Fibrilla tion, Bileaflet mecha nical valve in aortic position.2. Mec hanical prosthetic valv es (high risk), 2.5 - 3.5 Presence of Lupus Anticoagu lant or Antiphospholi pid Antibodies, Pre vention of systemic e mbolism - Acute Myocard ial Infarction (t o prevent recurre nt infarct). THROMBOPLASTIN TIME [id number] 10:42:00 Test Item Value Reference Range Interpretation Comments THROMBOPLASTIN TIME PARTIAL 41.5 SECONDS 26-35 H (test code = PTT) CBC W/AUTO [id number] 10:34:00 Test Item Value Reference Range Interpretation Comments WHITE BLOOD CELL (test code = 9.9 K/mm3 3.5-11.0 N WBC) RED BLOOD CELL (test code = 4.62 M/mm3 4.70-6.10 L RBC) HEMOGLOBIN (test code = HGB) 11.4 G/DL 10.4-14.9 N HEMATOCRIT (test code = HCT) 36.4 % 31.5-44.1 N MEAN CELL VOLUME (test code = 78.8 Fl 84.5-98.6 L MCV) MEAN CELL HGB (test code = MCH) 24.7 pg 27.0-34.2 L MEAN CELL HGB CONCETRATION 31.3 G/DL 31.5-34.0 L (test code = MCHC) RED CELL DISTRIBUTION WIDTH 16.0 SD 11.5-14.5 H (test code = RDW) PLATELET COUNT (test code = 367 K/mm3 150-450 N PLT) MEAN PLATELET VOLUME (test code 10.50 fL 7.0-10.5 N = MPV) NEUTROPHIL % (test code = NT%) 57.9 % 40-76 N IMMATURE GRANULOCYTE % (test 0.4 % 0.0-5.0 N code = IG%) LYMPHOCYTE % (test code = LY%) 32.2 % 20.5-51.1 N MONOCYTE % (test code = MO%) 6.8 % 1.7-9.3 N EOSINOPHIL % (test code = EO%) 2.2 % 0.0-6.0 N BASOPHIL % (test code = BA%) 0.5 % 0.0-2.0 N NUCLEATED RBC % (test code = 0.0 /100WBC% 0.0-1.0 N NRBC%) NEUTROPHIL # (test code = NT#) 5.7 K/mm3 1.8-7.6 N IMMATURE GRANULOCYTE # (test 0.04 x10 3/uL 0.00-0.03 H code = IG#) LYMPHOCYTE # (test code = LY#) 3.2 K/mm3 0.6-3.2 N MONOCYTE # (test code = MO#) 0.7 K/mm3 0.3-1.1 N EOSINOPHIL # (test code = EO#) 0.2 K/mm3 0.0-0.4 N BASOPHIL # (test code = BA#) 0.1 K/mm3 0.0-0.1 N NUCLEATED RBC # (test code = 0.0 K/mm3 0.0-0.1 N NRBC#) MANUAL DIFF REQUIRED (test code NO DIFF/SCN CRITERIA = MDIFF)
[2021-05-20] MEDS ORDERED: ACETAMINOPHEN 500 MG TAB ONE (17:59)
--- NOTE | 2021-05-20 18:53 | RAD REPORT ---
EXAM DESCRIPTION: Eric Single View05/20/2021 6:40 pm CLINICAL HISTORY: Chest pain COMPARISON: February 2021 FINDINGS: Lung bases are hazy. Upper lobes appear clear. The heart is normal size IMPRESSION: Lung bases are hazy which may indicate bilateral infiltrates
[2021-05-20 19:33] LABS: SARS-COV-2 RT PCR NEGATIVE (NEGATIVE)
--- NOTE | 2021-05-20 21:07 | ER ---
Nurse's Notes [facility] Name: April Ford Age: 45 yrs Sex: Female : 1975 Arrival Date: 05/20/2021 Time: 17:11 Bed External Waiting Private MD: Diagnosis: Presentation: 05/20 17:56 Chief complaint: Patient states: I began having SOB around 12 today. Pt daughter states ld1 she has severe anxiety .Upon arrival to ER SpO2 100%. Coronavirus screen: Client presents with at least one sign or symptom that may indicate coronavirus-19. Standard/surgical mask placed on the client. Ebola Screen: No symptoms or risks identified at this time. Initial Sepsis Screen: Does the patient meet any 2 criteria? No. Patient's initial sepsis screen is negative. Does the patient have a suspected source of infection? No. Patient's initial sepsis screen is negative. Risk Assessment: Do you want to hurt yourself or someone else? Patient reports no desire to harm self or others. Onset of symptoms was May 20, 2021. 17:56 Method Of Arrival: Wheelchair ld1 17:56 Acuity: BALDEMAR 3 ld1 Triage Assessment: 18:01 General: Appears in no apparent distress. comfortable, Behavior is calm, cooperative, ld1 appropriate for age. Pain: Denies pain. Neuro: Level of Consciousness is awake, alert, obeys commands, Oriented to person, place, time, situation. Respiratory: Reports shortness of breath cough that is Onset: The symptoms/episode began/occurred gradually, the patient has mild shortness of breath. 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 - Social history:: Smoking status: Patient reports the use of cigarette tobacco products, smokes one-half pack cigarettes per day, Patient/guardian denies using alcohol. Vital Signs: 17:56 BP 146 / 94; Pulse 121; Resp 22; Temp 103(O); Pulse Ox 100% on R/A; Weight 54.88 kg; ld1 Height 5 ft. 6 in. (167.64 cm); Pain 0/10; 17:56 Body Mass Index 19.53 (54.88 kg, 167.64 cm) ld1 ED Course: 17:11 Patient arrived in ED. ds1 18:00 Triage completed. ld1 18:01 Arm band placed on right wrist. ld1 18:40 CXR XRAY In Process Unspecified. EDMS Administered Medications: 18:03 Drug: Tylenol 1000 mg Route: PO; ld1 Outcome: 21:06 Patient left the ED. ld1 Signatures: Dispatcher [employer] EDRI Naila Harley ds1 Bessy Yusuf, RN RN ld1
[2021-05-20 21:11] VITALS: BP 146/94; TEMP 103; O2SAT 100
--- NOTE | 2021-05-25 15:30 | EDPHYS ---
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 - Social history:: Smoking status: Patient reports the use of cigarette tobacco products, smokes one-half pack cigarettes per day, Patient/guardian denies using alcohol. Vital Signs: 17:56 BP 146 / 94; Pulse 121; Resp 22; Temp 103(O); Pulse Ox 100% on R/A; Weight 54.88 kg; ld1 Height 5 ft. 6 in. (167.64 cm); Pain 0/10; 17:56 Body Mass Index 19.53 (54.88 kg, 167.64 cm) ld1 MDM: 05/20 18:02 Order name: COVID-19/FLU A+B (Document "Date of Onset" if Symptomatic) ld1 05/20 18:06 Order name: Strep pm05/20 18:06 Order name: BMP pm05/20 18:06 Order name: Blood Culture Adult (2) pm1 05/20 18:06 Order name: C-Reactive Protein pm05/20 18:06 Order name: CBC with Diff pm05/20 18:06 Order name: CXR XRAY pm05/20 18:06 Order name: Cardiac monitoring pm05/20 18:06 Order name: Droplet/Contact Precautions pm05/20 18:06 Order name: EKG - Nurse/Tech pm05/20 18:06 Order name: IV Start pm05/20 18:06 Order name: Labs collected and sent pm05/20 18:06 Order name: O2 Per Protocol pm05/20 18:06 Order name: O2 Sat Monitoring pm05/20 18:06 Order name: Urine Dipstick-Ancillary (obtain specimen) pm1 Administered Medications: 18:03 Drug: Tylenol 1000 mg Route: PO; ld1 Disposition Summary: 05/20/21 21:06 Left Against Medical Advice Location: Home ld1 Condition: Stable ld1 Addendum: 05/25/2021 15:23 Addendum: Patient eloped from lobby prior to being evaluated by me or any provider. p m1 Based on presentation of triage complaint and vital signs, extensive covid order set was placed due to ER wait times. No discussion of medical advice was given because the patient eloped after triage and was not seen by a provider. Signatures: Dispatcher [employer] EDMS Horacio Weber NP COMMISSIONING SPECIALIST pm1 Bessy Yusuf RN RN ld1 Corrections: (The following items were deleted from the chart) 05/20 18:40 18:07 Influenza Screen (A \\T\\ B)+BA.LAB.BRZ ordered. EDMS EDMS
== END 2021-05-20 21:06 | disposition left against medical advice (07) ==
LOC: ER 17:08
DX: R06.02 Shortness of breath (principal); Z53.21 Procedure and treatment not carried out due to patient leaving prior to being seen by health care provider; Z88.0 Allergy status to penicillin; F17.210 Nicotine dependence, cigarettes, uncomplicated; Z20.822 Contact with and (suspected) exposure to COVID-19
CPT/HCPCS: 0240U; 71045; 99283

== ENCOUNTER 2021-06-28 14:54 | Emergency (ER) | payer OTHER ==
--- OUTSIDE RECORDS SUMMARY | 2021-06-28 14:58 | XMS REPORT | Continuity of Care Document ---
:1975 Author Organization [facility] t Address [address] [place] [address] Care Team Providers Name Role Phone Reema Puri Attending Clinician Unavailable Terry, Arin Admitting Clinician Unavailable Payers Payer Name Policy Type Policy Number Effective Date Expiration Date S tam JAMES DISABILITY [id number] 2014 DETERMINATION SVCS 00:00:00 Problems This patient has no known problems. Allergies, Adverse Reactions, Alerts Allergy Allergy Status Severity Reaction(s) Onset Inactive Treating Comm ents Source Name Type Date Date Clinician diphenhy DA Active SV HIVES AROUND 2020-05 HC A dramine HER BODY 06-13 [place] 00:[facility]: [facility] DA Active U UNKNOWN 2020-05 [facility] ins ACCORDING TO 06-13 Pear kelsy PATIENT 00:00: d BEING TOLD 00 Medica l SINCE SHE Center WAS A CHIL PENICILL DRUG Active Unknown-Cmnt Un rome IN INGREDI 06-23 ity of 00:00: [address] NO KNOWN Drug Active Univers ALLERGIE Class ity of S [facility] Medications This patient has no known medications. Procedures This patient has no known procedures. Encounters Start End Encounter Admission Attending Care Care Encounter Source Date/Time Date/Time Type Type Clinicians Facility Department ID 2021-04-13 2021-04-13 Outpatient PARMINDER Ziegler [id number] [facility] 09:40:00 09:40:00 Paras [id number] Arlette romo [facility] 2021-04-13 2021-04-13 Outpatient PARMINDER Ziegler [facility] [id number] [facility] 09:40:00 09:40:00 Paras [facility] 2020-06-23 2020-06-23 Emergency X [facility] ERT [id number] Univers 11:08:00 11:08:00 [facility] Results Test Description Test Time Test Comments Results Result Comments Source - XR CHEST 1 V 2021-04-13 10:53:00 [facility] 1975 Sex: F Name: JEM WILSON [facility] : 1975 Age/S: 45 / F [id number] [place] Unit #: [id number] Loc: [place] [address] Phys: Paras Puri MD Acct: [id number] Dis Date: Status: [facility] PHONE #: [phone] Exam Date: 04/13/2021 1035 FAX #: Reason: PRE PROCEDURE EXAMS: CPT: [id number] XR CHEST 1 V 38775 Fluoro Time: DAP (Gy m2): Air Kerma [...] PAGE 1 Signed Report Name: JEM WILSON [place] : 1975 Age/S: 45 / F [id number] [place] Unit #: [id number] Loc: [place] [address] Phys: Paras Puri MD Acct: [id number] Dis Date: Status: REG SDC PHONE #: [phone] Exam Date: 04/13/2021 1035 FAX #: Reason: PRE PROCEDURE EXAMS: CPT: [id number] XR CHEST 1 V 09438 Fluoro Time: DAP (Gy m2): Air Kerma (mGy): <Continued> Technologist: Bryanna Voss RT (R)(CT) Trnscb Date/Time: 04/13/2021 (1134) [email or web address] Orig Print D/T: S: 04/13/2021 (0305) PAGE 2 Signed Report COMPREHENSIVE METABOLIC PANEL [...] = ALKP) 141 Unit/L 45-117 H PROTHROMBIN [id number] 10:42:00 Test Item Value Reference Range Interpretation [...] o prevent recurre nt infarct). THROMBOPLASTIN TIME [id number] 10:42:00 Test Item Value Reference Range Interpretation Comments THROMBOPLASTIN TIME PARTIAL 41.5 SECONDS 26-35 H (test code = PTT) CBC W/AUTO [id number] 10:34:00 Test Item Value Reference Range Interpretation [...]
[2021-06-28] MEDS ORDERED: DIAZEPAM 5 MG TABLET ONE (16:32)
[2021-06-28] MEDS ORDERED: KETOROLAC 30 MG/ML INJ ONE (16:33)
[2021-06-28] MEDS ORDERED: ONDANSETRON 4 MG (ODT) TAB ONE (16:33)
[2021-06-28] MEDS ORDERED: MORPHINE 4 MG/ML SYR ONE (16:33)
--- NOTE | 2021-06-28 18:24 | ER ---
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 Coronavirus screen: At this time, the client does not indicate any symptoms associated with coronavirus-19. Ebola Screen: No symptoms or risks identified at this time. Initial Sepsis Screen: Does the patient meet any 2 criteria? No. Patient's initial sepsis screen is negative. Does the patient have a suspected source of infection? No. Patient's initial sepsis screen is negative. Risk Assessment: Do you want to hurt yourself or someone else? Patient reports no desire to harm self or others. Onset of symptoms was June 25, 2021. 15:30 Method Of Arrival: Wheelchair jl 15:30 Acuity: BALDEMAR 4 jl7 Triage Assessment: 15:31 General: Appears in no apparent distress. uncomfortable, Behavior is calm, cooperative, jl7 appropriate for age. Pain: Complains of pain in low back area Pain currently is 10 out of 10 on a pain scale. Musculoskeletal: Swelling absent. 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 - Social history:: Smoking status: Patient reports the use of cigarette tobacco products, smokes one-half pack cigarettes per day. Screenin:42 Abuse screen: Denies threats or abuse. Denies injuries from another. Abuse screen: banks Denies threats or abuse. Nutritional screening: No deficits noted. Tuberculosis screening: No symptoms or risk factors identified. Fall Risk None identified. Assessment: 15:42 Neuro: No deficits noted. Musculoskeletal: Reports pain in back Pain is 10 out of 10 on banks a pain scale. Vital Signs: 15:30 BP 160 / 80; Pulse 108; Resp 17; Temp 97.9; Pulse Ox 100% on R/A; Weight 104.33 kg; jl7 Height 5 ft. 6 in. (167.64 cm); Pain 10/10; 15:30 Body Mass Index 37.12 (104.33 kg, 167.64 cm) 7 ED Course: 14:56 Patient arrived in ED. mr 15:31 Triage completed. [facility] 15:31 Arm band placed on right wrist. [facility] 15:41 Saurav Hunt PA is PHCP. [facility] 15:41 Sammy Chui MD is Attending Physician. [facility] 15:42 Patient has correct armband on for positive identification. Bed in low position. banks 15:42 No provider procedures requiring assistance completed. banks 18:37 Patient did not have IV access during this emergency room visit. banks Administered Medications: 16:38 Drug: morphine 4 mg Route: IM; Site: right deltoid; banks 16:39 Follow up: Response: No adverse reaction banks 16:38 Drug: Ondansetron 4 mg Route: PO; banks 16:38 Follow up: Response: No adverse reaction banks 16:38 Drug: Valium (diazepam) 5 mg Route: PO; banks 16:38 Follow up: Response: No adverse reaction banks 16:38 Drug: Ketorolac 30 mg Route: IM; Site: left deltoid; banks 16:38 Follow up: Response: No adverse reaction banks Outcome: 18:24 Discharge ordered by . [facility] 18:37 Discharged to home ambulatory. banks 18:37 Condition: good 18:37 Discharge instructions given to patient, Prescriptions given X 3. 18:37 Patient left the ED. banks Signatures: Saurav Hunt PA PA jmm Rivera, Mary mr MichaelErik RN RN [facility] JoycelynStageSkylar meza RN RN ha
--- NOTE | 2021-06-28 18:24 | EDPHYS ---
Physician Documentation [facility] Name: April Ford Age: 45 yrs Sex: Female : 1975 Arrival Date: 06/28/2021 Time: 14:56 Bed 17 Private MD: ED Physician Sammy Chiu HPI: 06/28 18:22 This 45 yrs old Female presents to ER via Wheelchair with complaints of Back Pain. jmm 18:22 The patient presents with pain that is acute. Onset: The symptoms/episode jmm began/occurred acutely, 4 day(s) ago. The pain radiates to the right leg and left leg. Associated signs and symptoms: Pertinent negatives: abdominal pain, chest pain, constipation, dysuria, fever, headache, hematuria, incontinence, nausea, numbness, tingling, urinary retention, vomiting, weakness. The problem was sustained when bending over. Modifying factors: The patient symptoms are alleviated by nothing, the patient symptoms are aggravated by any movement. The patient has experienced a previous episode. 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 - Social history:: Smoking status: Patient reports the use of cigarette tobacco products, smokes one-half pack cigarettes per day. ROS: 18:22 Constitutional: Negative for fever, chills, and weight loss, Cardiovascular: Negative jmm for chest pain, palpitations, and edema, Respiratory: Negative for shortness of breath, cough, wheezing, and pleuritic chest pain. 18:22 Back: Positive for pain at rest, pain with movement. 18:22 All other systems are negative. Exam: 18:22 Constitutional: This is a well developed, well nourished patient who is awake, alert, jmm and in no acute distress. Head/Face: atraumatic. Eyes: EOMI, no conjunctival erythema appreciated ENT: Moist Mucus Membranes Neck: Trachea midline, Supple Chest/axilla: Normal chest wall appearance and motion. Cardiovascular: Regular rate and rhythm. No edema appreciated Respiratory: Normal respirations, no respiratory distress appreciated Abdomen/GI: Non distended, soft 18:22 Back: pain, that is moderate, of the lumbar area, left low back and right low back. 18:22 Musculoskeletal/extremity: ROM: intact in all extremities. 18:22 Skin: Appearance: Color: normal in color. 18:22 Neuro: Extensor pollicis longus intact bilaterally. 18:22 Psych: Behavior/mood is pleasant, cooperative. Vital Signs: 15:30 BP 160 / 80; Pulse 108; Resp 17; Temp 97.9; Pulse Ox 100% on R/A; Weight 104.33 kg; jl7 Height 5 ft. 6 in. (167.64 cm); Pain 10/10; 15:30 Body Mass Index 37.12 (104.33 kg, 167.64 cm) jl7 MDM: 16:14 Patient medically screened. [facility] 18:23 Data reviewed: vital signs, nurses notes. Counseling: I had a detailed discussion with violeta the patient and/or guardian regarding: the historical points, exam findings, and any diagnostic results supporting the discharge/admit diagnosis, the need for outpatient follow up, to return to the emergency department if symptoms worsen or persist or if there are any questions or concerns that arise at home. ED course: Patient states feeling much better. I do not suspect cord compression or cauda equina. Patient advised to follow-up with PCP and otherwise given strict return precautions. Patient understood and agrees plan of care.. Administered Medications: 16:38 Drug: morphine 4 mg Route: IM; Site: right deltoid; banks 16:39 Follow up: Response: No adverse reaction banks 16:38 Drug: Ondansetron 4 mg Route: PO; banks 16:38 Follow up: Response: No adverse reaction banks 16:38 Drug: Valium (diazepam) 5 mg Route: PO; banks 16:38 Follow up: Response: No adverse reaction banks 16:38 Drug: Ketorolac 30 mg Route: IM; Site: left deltoid; banks 16:38 Follow up: Response: No adverse reaction banks Disposition: 19:30 Co-signature as Attending Physician, Sammy Chiu MD I agree with the assessment and kdr plan of care. Disposition Summary: 06/28/21 18:24 Discharge Ordered Location: Home [facility] Condition: Stable [facility] Diagnosis - Sciatica [facility] Followup: violeta - With: Private Physician - When: 2 - 3 days - Reason: Recheck today's complaints, Continuance of care, Re-evaluation by your physician Discharge Instructions: - Discharge Summary Sheet antionette - Sciatica antionette Forms: - Medication Reconciliation Form [facility] - Thank You Letter violeta - Antibiotic Education antionettem - Prescription Opioid Use antionette - Work release form iw Prescriptions: - Zanaflex 4 mg Oral Tablet - take 1 tablet by ORAL route every 8 hours As needed; 20 tablet; Refills: 0, [facility] Product Selection Permitted - Diclofenac Sodium 75 mg Oral Tablet Sustained Release - take 1 tablet by ORAL route 2 times per day; 30 tablet; Refills: 0, Product [facility] Selection Permitted - Medrol ([place]) 4 mg Oral Tablets, Dose Pack - take 1 tablet by ORAL route as directed - follow package instructions; 1 jm packet; Refills: 0, Product Selection Permitted Signatures: Sammy Chiu MD MD kdr Mickail, Joel, PA PA jmm Leal, Jahala RN RN jl7 Skylar Bernardo RN RN banks
[2021-06-28 18:43] VITALS: BP 160/80; TEMP 97.9; O2SAT 100
== END 2021-06-28 18:37 | disposition home or self-care (01) ==
LOC: ER 14:54
DX: M54.30 Sciatica, unspecified side (principal); F17.210 Nicotine dependence, cigarettes, uncomplicated; Z88.0 Allergy status to penicillin; Z88.8 Allergy status to other drugs, medicaments and biological substances
CPT/HCPCS: 96372; 99283

== ENCOUNTER 2021-10-21 18:07 | Emergency (ER) | payer OTHER ==
--- OUTSIDE RECORDS SUMMARY | 2021-10-21 18:09 | XMS REPORT | Continuity of Care Document ---
:1975 Author Organization [facility] [place] [facility] t Address [address] [place] [address] Care Team Providers Name Role Phone SALAS aHnna [facility] Primary Care Physic tae Unavailable Arianna SINGH Attending Clinician Unavailable Samantha BLACKWELL S Attending Clinician Reema Puri Attending Clinician Unavailable Arianna SINGH Admitting Clinician Unavailable Terry, Arin Admitting Clinician Unavailable Payers Payer Name Policy Type Policy Number Effective Date Expiration Date [facility] [id number] 2021 COMM 00:00:00 DARS DISABILITY [id number] 2014 DETERMINATION SVCS 00:00:00 Problems Condition Condition Condition Status Onset Resolution Last Treating Co mments Source Name Details Category Date Date Treatment Clinician Date No known No known Disease Unive rs active active ity of problems problems [facility] Allergies, Adverse Reactions, Alerts Allergy Allergy Status Severity Reaction(s) Onset Inactive Treating Comm ents Source Name Type Date Date Clinician BENADRYL DRUG Active High Swelling Univer s ALLERGY 4-05 ity of DECONGES 00:00: [place] TANT 00 Medical Branch Benadryl Propensi Active Swelling Univ ers Allergy ty to 08-18 ity of Deconges adverse 00:00: [place] tant reaction 00 Medical s Branch Penicill DA Active U UNKNOWN 2020-05 [facility] ins ACCORDING TO 06-13 [place] PATIENT 00:00: d BEING TOLD 00 Medica l SINCE SHE Center WAS A CHIL diphenhy DA Active SV HIVES AROUND 2020-05 HC A dramine HER BODY 06-13 [place] 00:00: d [facility] PENICILL DRUG Active Unknown-Cmnt Un rome IN INGREDI 2-08 ity of 00:00: [place] 00 Medical Branch Penicill Propensi Active Unknown - Was told U nivers in ty to See comments 06-23 as a ity of adverse 00:00: child [place] reaction 00 Medical s [place] NO KNOWN Drug Active Univers ALLERGIE Class ity of [facility] Social History Social Habit Start Date Stop Date Quantity Comments Source Exposure to Not sure [facility] SARS-CoV-2 (event) Medica l Branch Sex Assigned At [birth year] [facility] 00:00:00 00:00:00 Medical Branch Smoking Status Start Date Stop Date Source Unknown if ever smoked [facility] Medications Ordered Filled Start Stop Current Ordering Indication Dosage Frequency Signature Comments Components Source Medication Medication Date Date Medication? Clinician (SIG) Name Name ketorolac 2021- No 30mg 30 mg, Unive rs (TORADOL) 08-19 04-06 Intramuscu ity of injection 03:15: 02:57 lar, ONCE, [place] 30 mg 00 :00 1 dose, On Medical 08/18/21 Branch at 2215, ZEHRA predniSONE Yes [id number] TAKE ONE Univers 20 mg 4-05 TABLET BY ity of tablet 00:00: MOUTH 00 DAILY Medical Branch gabapentin 2021-0 Yes [id number] 300mg Take 1 Univers 300 mg 4-05 capsule by ity of capsule 00:00: mouth 3 00 (three) Medical times Branch daily. traMADoL 50 2020- Yes [id number] 50mg Take 1 Univ ers mg tablet 2-08 tablet by ity o f 00:00: mouth 00 every 6 Medical (six) Branch hours as needed for Pain (scale 7-10). Indication s: acute pain naproxen Yes [id number] 500mg Take 1 U nivers (NAPROSYN) 2-08 tablet by ity of 500 mg 00:00: mouth 2 [place] tablet 00 (two) Medical times [place] daily with meals. cyclobenzap Yes [id number] 10mg Take 1 Univers rine 10 mg 2-08 tablet by ity of tablet 00:00: mouth 3 [place] 00 (three) Medical times [place] daily as needed for Muscle Spasms. Vital Signs Vital Name Observation Time Observation Value Comments Source Systolic blood 2021-08-19 04:28:52 143 mm[Hg] [facility] Diastolic blood 2021-08-19 04:28:52 83 mm[Hg] [facility] Heart rate 2021-08-19 04:28:52 95 /min [facility] Respiratory rate 2021-08-19 04:28:52 20 /min [facility] Oxygen saturation in 2021-08-19 04:28:52 97 /min [facility] Arterial blood by [facility] Pulse oximetry [place] Body temperature 2021-08-18 23:50:00 37.83 Norma [facility] Body height 2021-08-18 23:50:00 167.6 cm [facility] Body weight 2021-08-18 23:50:00 104.327 kg [facility] BMI 2021-08-18 23:50:00 37.12 kg/m2 [facility] Procedures Procedure Date / Time Performed Performing Clinician Sourc e URINALYSIS 2021-08-19 03:07:00 Maryam Singh [facility] NOTICE OF PRIVACY 2021-08-18 23:46:31 Doctor Unassigned, No Univ [facility] PRACTICES Name [facility] CONSENT/REFUSAL FOR 2021-08-18 23:46:18 Doctor Unassigned, No [facility] AND Name Medical [place] TREATMENT Encounters Start End Encounter Admission Attending Care Care Encounter Source Date/Time Date/Time Type Type Clinicians Facility Department ID 2021-08-18 2021-08-19 Emergency X DARLING SINGH ERT [id number] Univers 19:42:00 00:05:[facility] 2021-08-18 2021-08-19 Emergency Samantha [facility] [id number] Univers 19:42:00 00:05:00 Mary[id number] [id number] [place] [address] Branch 2021-04-13 2021-04-13 Outpatient RAYMOND SONY [facility] [id number] [facility] 09:40:00 09:40:00 Paras [id number] [facility] [place] 2021-04-13 2021-04-13 [facility] [id number] [facility] 09:40:00 09:40:00 Paras 61 [facility] [place] 2020-06-23 2020-06-23 Emergency X [facility] ERT [id number] Univers 11:08:00 11:08:00 [facility] Results Test Description Test Time Test Comments Results Result Comments Source - XR CHEST 1 V 2021-04-13 10:53:00 [facility] : 1975 Sex: F Name: JEM WILSON [facility] : 1975 Age/S: 45 / F [id number] [address] [place] Unit #: [id number] Loc: [place] [address] Phys: Paras Puri MD Acct: [id number] Dis Date: Status: [facility] PHONE #: [phone] Exam Date: 04/13/2021 1035 FAX #: Reason: PRE PROCEDURE EXAMS: CPT: [id number] XR CHEST 1 V 69113 Fluoro Time: DAP (Gy m2): Air Kerma [...] PAGE 1 Signed Report Name: JEM WILSON [place] : 1975 Age/S: 45 / F [id number] [place] Unit #: [id number] Loc: [place] [address] Phys: Paras Puri MD Acct: [id number] Dis Date: Status: [facility] PHONE #: [phone] Exam Date: 04/13/2021 1035 FAX #: Reason: PRE PROCEDURE EXAMS: CPT: [id number] XR CHEST 1 V 43284 Fluoro Time: DAP (Gy m2): Air Kerma (mGy): <Continued> Technologist: Bryanna Voss RT (R)(CT) Trnscb Date/Time: 04/13/2021 (1053) [id number] Orig Print D/T: S: 04/13/2021 (7529) PAGE 2 Signed Report COMPREHENSIVE METABOLIC PANEL [...] = ALKP) 141 Unit/L 45-117 H PROTHROMBIN [id number] 10:42:00 Test Item Value Reference Range Interpretation [...] o prevent recurre nt infarct). THROMBOPLASTIN TIME [id number] 10:42:00 Test Item Value Reference Range Interpretation Comments THROMBOPLASTIN TIME PARTIAL 41.5 SECONDS 26-35 H (test code = PTT) CBC W/AUTO [id number] 10:34:00 Test Item Value Reference Range Interpretation [...]
[2021-10-21 20:09] LABS: Absolute Lymphocytes (CBC) 3.2 K/uL (0.7-4.9); Hematocrit 34.1 % (36.0-45.0); Lymphocytes % 27.4 % (15.3-44.8); MPV 8.4 fL (7.6-11.3); RBC Red Blood Cell Count 4.69 M/uL (3.86-4.86)
[2021-10-21] MEDS ORDERED: MORPHINE 4 MG/ML SYR ONE (20:14)
[2021-10-21] MEDS ORDERED: NA CHLORIDE 0.9% 1,000 ML ONE (20:15)
[2021-10-21] MEDS ORDERED: KETOROLAC 30 MG/ML INJ ONE (20:15)
[2021-10-21] MEDS ORDERED: ONDANSETRON 4 MG/2 ML VIAL ONE (20:15)
[2021-10-21 20:48] LABS: Albumin 3.4 g/dL (3.4-5.0); Bilirubin Total 0.2 mg/dL (0.2-1.0); Potassium 4.2 mmol/L (3.5-5.1); Protein, Total 7.5 g/dL (6.4-8.2)
--- NOTE | 2021-10-21 20:56 | RAD REPORT ---
EXAM DESCRIPTION: CT - Stone Protocol - 10/21/2021 8:44 pm CLINICAL HISTORY: Abdominal pain. COMPARISON: 2019 TECHNIQUE: Computed axial tomography of the abdomen pelvis was obtained without oral or IV contrast. Lack of IV and oral contrast limits evaluation of solid organs, bowel, and vessels. Coronal reformat ashly images were obtained and reviewed. All CT scans are performed using dose optimization technique as appropriate and may include automated exposure control or mA/KV adjustment according to patient size. FINDINGS: A renal calculus is not seen. An ureteral calculus is not noted. A bladder calculus is not present. The liver, spleen, pancreas and left adrenal appear grossly normal A small right adrenal adenoma. There is no evidence of diverticulitis. The appendix appears normal No adnexal mass Tiny umbilical hernia IMPRESSION: Negative for a genitourinary calculus
--- NOTE | 2021-10-21 20:57 | RAD REPORT ---
EXAM DESCRIPTION: US - Transvaginal Study Probe - 10/21/2021 7:28 pm CLINICAL HISTORY: Pelvic pain COMPARISON: 2020 FINDINGS: The uterus measures 11 x 5 x 7 cm. 2 centimeter heterogeneous structure within the uterus may represent a fibroid. The endometrial stripe measures 1.5 centimeters. 1.3 centimeter echogenic structure is present within the endometrial stripe. Right ovary appears normal in size and echotexture. Normal blood flow. Left ovary not seen secondary to overlying bowel gas The right and left adnexa unremarkable No significant free fluid is seen. IMPRESSION: Endometrial stripe measures 1.5 centimeters. If the patient is premenopausal this probab ly is normal. If the patient is postmenopausal this would be abnormal 1.3 centimeter echogenic structure within the endometrial stripe is without significant change from t he prior exam. This may represent a polyp or submucosal fibroid Endometrial stripe measures 1.5 centimeters. If the patient is premenopausal this likely is normal. I f the patient is postmenopausal this would be abnormal
[2021-10-21] MEDS ORDERED: MEPERIDINE HCL 25 MG/ML SYR ONE (21:12)
--- NOTE | 2021-10-21 21:55 | EDPHYS ---
Physician Documentation [facility] Name: April Ford Age: 45 yrs Sex: Female : 1975 Arrival Date: 10/21/2021 Time: 18:09 Bed 23 Private MD: ED Physician Marcus Cevallos HPI: 10/21 19:24 This 45 yrs old Female presents to ER via Ambulatory with complaints of Abdominal Pain. kb 19:24 The patient presents with abdominal pain right lower quadrant. Onset: The kb symptoms/episode began/occurred just prior to arrival. The symptoms do not radiate. Associated signs and symptoms: none. The symptoms are described as constant, sharp. Modifying factors: The symptoms are alleviated by nothing, the symptoms are aggravated by nothing. Severity of pain: At its worst the pain was moderate severe in the emergency department the pain is unchanged. The patient has not experienced similar symptoms in the past. The patient has not recently seen a physician. Historical: - Allergies: 18:15 Benadryl; ll1 18:15 PENICILLINS; ll1 - PMHx: 18:15 Anxiety; Migraines; Panic Attacks; ll1 - PSHx: 18:15 Ankle-Left; Ligation of fallopian tube; ll1 - Immunization history:: Client reports receiving the 2nd dose of the Covid vaccine. - Social history:: Smoking status: Patient reports the use of cigarette tobacco products, smokes one-half pack cigarettes per day. ROS: 19:11 Constitutional: Negative for fever, chills, and weight loss. kb 19:11 Abdomen/GI: Positive for abdominal pain, Negative for nausea, vomiting, and diarrhea. 19:11 All other systems are negative. Exam: 19:11 Constitutional: This is a well developed, well nourished patient who is awake, alert, kb and in no acute distress. Head/Face: Normocephalic, atraumatic. ENT: Moist Mucous membranes Cardiovascular: Regular rate and rhythm with a normal S1 and S2. No gallops, murmurs, or rubs. No pulse deficits. Respiratory: Respirations even and unlabored. No increased work of breathing. Talking in full sentences Skin: Warm, dry with normal turgor. Normal color. MS/ Extremity: Pulses equal, no cyanosis. Neurovascular intact. Full, normal range of motion. Neuro: Awake and alert, GCS 15, oriented to person, place, time, and situation. Moves all extremities. Normal gait. Psych: Awake, alert, with orientation to person, place and time. Behavior, mood, and affect are within normal limits. 19:11 Abdomen/GI: Inspection: abdomen appears normal, Bowel sounds: normal, in all quadrants, Palpation: soft, in all quadrants, moderate abdominal tenderness, in the right lower quadrant. Vital Signs: 18:14 BP 164 / 86; Pulse 115; Resp 20; Temp 97.9; Pulse Ox 97% ; Weight 78.02 kg; Height 5 ll1 ft. 6 in. (167.64 cm); Pain 10/10; 20:18 BP 139 / 86; Pulse 102; Resp 20; Pulse Ox 98% on R/A; Pain 8/10; ld1 21:37 BP 128 / 84; Pulse 85; Resp 18; Pulse Ox 99% on R/A; ld1 22:13 BP 107 / 66; Pulse 86; Resp 18; Pulse Ox 100% on R/A; ld1 18:14 Body Mass Index 27.76 (78.02 kg, 167.64 cm) ll1 MDM: 18:22 Patient medically screened. kb 19:21 Data reviewed: vital signs, nurses notes. Data interpreted: Pulse oximetry: on room air kb is 97 %. Interpretation: normal. 19:48 Transition of care: After a detail discussion of the patient's case, care is kb transferred to Yogesh BUENROSTRO. 21:54 Differential diagnosis: appendicitis, bowel obstruction, diverticulitis, Dysmenorrhea, rn Endometriosis, non-specific abd pain, Ureterolithiasis, urinary tract infection. Counseling: I had a detailed discussion with the patient and/or guardian regarding: the historical points, exam findings, and any diagnostic results supporting the discharge/admit diagnosis, lab results, radiology results, the need for outpatient follow up, to return to the emergency department if symptoms worsen or persist or if there are any questions or concerns that arise at home. Response to treatment: the patient's symptoms have markedly improved after treatment, eating and drinking chips/soda, and as a result, I will discharge patient. Special discussion: Based on the patient's Hx, exam, and Dx evaluation, there is no indication for emergent surgery or inpatient Tx. It is understood by the patient/guardian that if the Sx's persist or worsen they need to return immediately for re-evaluation. I discussed with the patient/guardian in detail that at this point there is no indication for admission to the hospital. It is understood, however, that if the symptoms persist or worsen the patient needs to return immediately for re-evaluation. 10/21 18:27 Order name: CBC with Diff; Complete Time: 20:47 kb 10/21 18:27 Order name: CMP; Complete Time: 09:10 kb 10/21 18:27 Order name: Lipase; Complete Time: 09:10 kb 10/21 18:27 Order name: US Transvaginal Study (Probe); Complete Time: 20:58 kb 10/21 18:28 Order name: CT Stone Protocol; Complete Time: 20:58 kb 10/21 18:27 Order name: IV Saline Lock; Complete Time: 20:01 kb 10/21 18:27 Order name: Labs collected and sent; Complete Time: 20:01 kb Administered Medications: 20:12 Drug: NS 0.9% 1000 ml Route: IV; Rate: 1 bolus; Site: left antecubital; ld1 20:12 Drug: Ketorolac 15 mg Route: IVP; Site: left antecubital; ld1 20:36 Follow up: Response: No adverse reaction ld1 20:12 Drug: Zofran (Ondansetron) 4 mg Route: IVP; Site: left antecubital; ld1 20:36 Follow up: Response: No adverse reaction ld1 20:36 Drug: morphine 4 mg Route: IVP; Infused Over: 4 mins; Site: right antecubital; ld1 20:36 Follow up: Response: No adverse reaction ld1 21:08 Drug: Demerol (meperidine) 25 mg Route: IVP; Site: left antecubital; ld1 Disposition: 10/22 00:09 Co-signature as Attending Physician, Marcus Cevallos MD. rn Disposition Summary: 10/21/21 21:54 Discharge Ordered Location: Home rn Problem: new rn Symptoms: have improved rn Condition: Stable rn Diagnosis - Lower abdominal pain, unspecified rn Followup: rn - With: Private Physician - When: As needed - Reason: Recheck today's complaints, Re-evaluation by your physician Discharge Instructions: - Discharge Summary Sheet rn - Abdominal Pain, Adult rn Forms: - Medication Reconciliation Form rn - Thank You Letter rn - Antibiotic corn grinder - Prescription Opioid Use rn Prescriptions: - Tramadol 50 mg Oral Tablet - take 1 tablet by ORAL route every 8 hours as needed; 12 tablet; Refills: 0, rn Product Selection Permitted Signatures: Dispatcher [employer] EDZoe Gill, PUBLIC TRANSIT SPECIALIST-C PUBLIC TRANSIT SPECIALIST-Marcus Angulo MD MD rn Betsey Walters RN RN ll1 Bessy Yusuf RN RN ld1 Corrections: (The following items were deleted from the chart) 10/21 18:30 18:28 Abdomen Pelvis W Con+CT.RAD.BRZ ordered. EDMS EDMS
--- NOTE | 2021-10-21 21:55 | ER ---
Nurse's Notes [facility] Name: April Ford Age: 45 yrs Sex: Female : 1975 Arrival Date: 10/21/2021 Time: 18:09 Bed 23 Private MD: Diagnosis: Lower abdominal pain, unspecified Presentation: 10/21 18:14 Chief complaint: Patient states: R sided pelvic pain for 20 min. Coronavirus screen: ll1 Client denies travel out of the [place] in the last 14 days. At this time, the client does not indicate any symptoms associated with coronavirus-19. Ebola Screen: Patient denies travel to an Ebola-affected area in the 21 days before illness onset. Initial Sepsis Screen: Does the patient meet any 2 criteria? HR > 90 bpm. No. Patient's initial sepsis screen is negative. Does the patient have a suspected source of infection? Yes: Skin breakdown/wound. Risk Assessment: Do you want to hurt yourself or someone else? Patient reports no desire to harm self or others. Onset of symptoms was October 21, 2021. 18:14 Method Of Arrival: Ambulatory ll1 18:14 Acuity: BALDEMAR 2 ll1 Triage Assessment: 18:16 General: Appears uncomfortable, Behavior is cooperative, appropriate for age. Pain: ll1 Complains of pain in R pelvic Quality of pain is described as aching. GI: Reports lower abdominal pain. : Reports pain in right. Historical: - Allergies: 18:15 Benadryl; ll1 18:15 PENICILLINS; ll1 - PMHx: 18:15 Anxiety; Migraines; Panic Attacks; ll1 - PSHx: 18:15 Ankle-Left; Ligation of fallopian tube; ll1 - Immunization history:: Client reports receiving the 2nd dose of the Covid vaccine. - Social history:: Smoking status: Patient reports the use of cigarette tobacco products, smokes one-half pack cigarettes per day. Screenin:18 Abuse screen: Denies threats or abuse. Denies injuries from another. Nutritional ld1 screening: No deficits noted. Tuberculosis screening: No symptoms or risk factors identified. Fall Risk None identified. Assessment: 20:18 General: Appears in no apparent distress. comfortable, Behavior is calm, cooperative, ld1 appropriate for age. Pain: Complains of pain in right lower quadrant Pain does not radiate. Pain currently is 8 out of 10 on a pain scale. Quality of pain is described as throbbing, Pain began gradually, Is intermittent. Neuro: Level of Consciousness is awake, alert, obeys commands, Oriented to person, place, time, situation. Cardiovascular: Capillary refill < 3 seconds Patient's skin is warm and dry. Rhythm is sinus rhythm. Respiratory: Airway is patent Respiratory effort is even, unlabored. GI: Abdomen is round non-distended, Bowel sounds present X 4 quads. Abd is soft Abdomen is tender to palpation in right upper quadrant and right lower quadrant. : No signs and/or symptoms were reported regarding the genitourinary system. EENT: No signs and/or symptoms were reported regarding the EENT system. Derm: No signs and/or symptoms reported regarding the dermatologic system. Musculoskeletal: No signs and/or symptoms reported regarding the musculoskeletal system. 21:37 Reassessment: Patient appears in no apparent distress at this time. Patient and/or ld1 family updated on plan of care and expected duration. Pain level reassessed. Patient is alert, oriented x 3, equal unlabored respirations, skin warm/dry/pink. 22:13 Reassessment: Patient appears in no apparent distress at this time. Patient and/or ld1 family updated on plan of care and expected duration. Pain level reassessed. Patient is alert, oriented x 3, equal unlabored respirations, skin warm/dry/pink. Vital Signs: 18:14 BP 164 / 86; Pulse 115; Resp 20; Temp 97.9; Pulse Ox 97% ; Weight 78.02 kg; Height 5 ll1 ft. 6 in. (167.64 cm); Pain 10/10; 20:18 BP 139 / 86; Pulse 102; Resp 20; Pulse Ox 98% on R/A; Pain 8/10; ld1 21:37 BP 128 / 84; Pulse 85; Resp 18; Pulse Ox 99% on R/A; ld1 22:13 BP 107 / 66; Pulse 86; Resp 18; Pulse Ox 100% on R/A; ld1 18:14 Body Mass Index 27.76 (78.02 kg, 167.64 cm) ll1 ED Course: 18:09 Patient arrived in ED. mr 18:14 Daryl Leigh DO is Attending Physician. ms3 18:15 Zoe Marie FNP-C is PHCP. kb 18:15 Triage completed. ll1 18:16 Arm band placed on. ll1 19:29 US Transvaginal Study (Probe) In Process Unspecified. EDMS 19:39 PHCP role handed off by Zoe Marie FNP-C cp 19:39 Yogesh Mac PA is PHCP. cp 19:58 Marcus Cevallos MD is Attending Physician. cp 20:01 Inserted saline lock: 20 gauge in left antecubital area, using aseptic technique. Blood zm collected. 20:01 CBC with Diff Sent. zm 20:01 CMP Sent. zm 20:01 Lipase Sent. zm 20:17 Bessy Yusuf RN is Primary Nurse. ld1 20:18 Patient has correct armband on for positive identification. Placed in gown. Bed in low ld1 position. Call light in reach. Side rails up X2. cell lead on. Pulse ox on. NIBP on. Door closed. Noise minimized. Warm blanket given. 20:18 No provider procedures requiring assistance completed. ld1 20:46 CT Stone Protocol In Process Unspecified. EDMS 22:13 IV discontinued. ld1 22:13 intact, bleeding controlled, No redness/swelling at site. ld1 Administered Medications: 20:12 Drug: NS 0.9% 1000 ml Route: IV; Rate: 1 bolus; Site: left antecubital; ld1 20:12 Drug: Ketorolac 15 mg Route: IVP; Site: left antecubital; ld1 20:36 Follow up: Response: No adverse reaction ld1 20:12 Drug: Zofran (Ondansetron) 4 mg Route: IVP; Site: left antecubital; ld1 20:36 Follow up: Response: No adverse reaction ld1 20:36 Drug: morphine 4 mg Route: IVP; Infused Over: 4 mins; Site: right antecubital; ld1 20:36 Follow up: Response: No adverse reaction ld1 21:08 Drug: Demerol (meperidine) 25 mg Route: IVP; Site: left antecubital; ld1 Medication: 20:18 VIS not applicable for this client. ld1 Outcome: 21:54 Discharge ordered by . rn 22:13 Discharged to home ambulatory, with family. ld1 22:13 Condition: stable 22:13 Discharge instructions given to patient, Instructed on discharge instructions, follow up and referral plans. Demonstrated understanding of instructions, follow-up care. 22:14 Patient left the ED. ld1 Signatures: Dispatcher [employer] EDZoe Gill, PUSHPA GARCIAP-Emilio Eda OlivarezMarcus MD MD rn Yoegsh Mac PA PA cp Lewis, Lynsay, RN RN ll1 Daryl Leigh DO DO ms3 Bessy Yusuf RN RN ld1 Rabia Mcintosh Corrections: (The following items were deleted from the chart) 18:17 18:14 BP 164 / 86; Pulse 123bpm; Resp 20bpm; Temp 97.9F; 78.02 kg; Height 5 ft. 6 in.; ll1 BMI: 27.7; Pain 10/10; ll1
[2021-10-21 22:43] VITALS: TEMP 97.9
[2021-10-21 22:51] VITALS: BP 107/66; O2SAT 100
== END 2021-10-21 22:14 | disposition home or self-care (01) ==
LOC: ER 18:07
DX: R10.31 Right lower quadrant pain (principal); F17.210 Nicotine dependence, cigarettes, uncomplicated; Z88.0 Allergy status to penicillin; Z88.8 Allergy status to other drugs, medicaments and biological substances
CPT/HCPCS: 85025; 36415; 83690; 80053; 76377; 74176; 76830; 99284; J2175; J7030; J2405

== ENCOUNTER 2022-06-15 08:18 | Emergency (ER) | payer SELFPAY ==
--- OUTSIDE RECORDS SUMMARY | 2022-06-15 08:22 | XMS REPORT | Continuity of Care Document ---
:1975 Author Organization [facility] t Address [address] [place] [address] Care Team Providers Name Role Phone SALAS Hanna [facility] Primary Care P hysician Unavailable BLAISE SMITH Attending Clinician Unavailable Blaise Smith MD Attending Clinician PATRICK SINGH Attending Clinician Unavailable Patrick Singh MD Attending Clinician Paras Puri Attending Clinician Unavailable BLAISE SMITH Admitting Clinician Unavailable PATRICK SINGH Admitting Clinician Unavailable Dianne Stewart Admitting Clinician Unavailable Payers Payer Name Policy Type Policy Number Effective Date Expiration Date [facility] [id number] 2021 COMM 00:00:00 DARS DISABILITY [id number] 2014 DETERMINATION SVCS 00:00:00 Problems Condition Condition Condition Status Onset Resolution Last Treating Co mments Source Name Details Category Date Date Treatment Clinician Date No known No known Disease Unive rs active active ity of problems problems [facility] Allergies, Adverse Reactions, Alerts Allergy Allergy Status Severity Reaction(s) Onset Inactive Treating Comm ents Source Name Type Date Date Clinician BENADRYL DRUG Active High Swelling Univer s ALLERGY 4-05 ity of DECONGES 00:00: [place] TANT 00 Medical Branch Benadryl Propensi Active Swelling Univ ers Allergy ty to 405 ity of Deconges adverse 00:00: [place] tant reaction 00 [facility] diphenhy DA Active SV HIVES AROUND 2020-05 HC A dramine HER BODY 06-13 [place] 00:00: d [facility] Penicill DA Active U UNKNOWN 2020-05 [facility] ins ACCORDING TO 06-13 [place] PATIENT 00:00: d BEING TOLD 00 Medica l SINCE SHE Center WAS A CHIL PENICILL DRUG Active Unknown-Cmnt Un rome IN INGREDI 208 ity of 00:00: [place] 00 Medical Branch Penicill Propensi Active Unknown - Was told U nivers in ty to See comments 06-23 as a ity of adverse 00:00: child [place] reaction 00 [facility] NO KNOWN Drug Active Univers ALLERGIE Class ity of [facility] Social History Social Habit Start Date Stop Date Quantity Comments Source Exposure to 2022-01-01 2022-01-11 Not sure [facility] SARS-CoV-2 (event) 00:00:00 10:34:00 Medica l Branch Sex Ass[birth year] At [birth year] [facility] 00:00:00 00:00:00 Medical [place] Smoking Status Start Date Stop Date Source Tobacco smoking consumption [facility] Branch Medications Ordered Filled Start Stop Current Ordering Indication Dosage Frequency Signature Comments Components Source Medication Medication Date Date Medication? Clinician (SIG) Name Name ketorolac No 30mg 30 mg, Unive rs (TORADOL) 01-11 Slow IV ity of injection 19:30: 18:34 Push, [place] 30 mg 00 :00 ONCE, 1 Medical dose, On Branch 01/11/22 at 1430, ZEHRA morpHINE (4 No 4mg 4 mg, Slow Univers mg/mL) 01-11 IV Push, ity of injection 4 18:30: 18:34 [place] 1 [place] mg [place] :[place] dose, On Medical Mon Branch 01/11/22 at 1330, STAT ondansetron 2021- No 4mg 4 mg, Slow Univers (ZOFRAN 01-11 IV Push, ity of (PF)) 17:15: 16:26 ONCE, 1 [place] injection 4 00 :00 dose, On Medi sharon mg Mon Branch 01/11/22 at 1215, ZEHRA morpHINE (4 2021- No 4mg 4 mg, Slow Univers mg/mL) 01-11 IV Push, ity of injection 4 16:15: 16:27 [place]CE[place] 1 [place] mg [place] :[place] dose, On Medical Mon Branch 01/11/22 at 1115, STAT ciprofloxac Yes [id number] 500mg Take 1 Univers in HCl 500 01-11 tablet by ity of mg tablet 00:00[place] the Medical morning Branch and 1 tablet in the evening. HYDROcodone 2021- No 4647 1{tbl} Take 1 U nivers -acetaminop 01-11 tablet by it y of hen (NORCO) 00:00: 04:59 [place] 7.5-325 mg 00 :00 every 8 Medica l per tablet (eight) Branch hours as needed for Pain for up to 7 days. Indication s: acute pain predniSONE 2021- No [id number] 20mg Take 1 Univers 20 mg 01-11 tablet by ity of tablet 00:00: 04:59 mouth in [place] 00 :00 the Medical morning Branch for 5 days. ketorolac 2021- No 30mg 30 mg, Unive rs (TORADOL) 08-19 04-06 Intramuscu ity of injection 03:15: 02:57 lar, ONCE, [place] 30 mg 00 :00 1 dose, On Medical 08/18/21 Branch at 2215, ZEHRA predniSONE 2021- Yes [id number] TAKE ONE Univers 20 mg 4-05 TABLET BY ity of tablet 00:00: MOUTH [place] 00 DAILY Medical Branch gabapentin 2021-0 Yes [id number] 300mg Take 1 Univers 300 mg 4-05 capsule by ity of capsule 00:00: mouth 3 [place] 00 (three) Medical times Branch daily. predniSONE 2021-0 Yes [id number] TAKE ONE Univers 20 mg 4-05 TABLET BY ity of tablet 00:00: MOUTH [place] 00 DAILY Medical Branch gabapentin 2021-0 Yes [id number] 300mg Take 1 Univers 300 mg 4-05 capsule by ity of capsule 00:00: mouth 3 [place] 00 (three) Medical times Branch daily. traMADoL 50 2020-0 Yes [id number] 50mg Take 1 Univ ers mg tablet 2-08 tablet by ity o f 00:00: mouth [place] 00 every 6 Medical (six) Branch hours as needed for Pain (scale 7-10). Indication s: acute pain naproxen Yes [id number] 500mg Take 1 U nivers (NAPROSYN) 2-08 tablet by ity of 500 mg 00:00: mouth 2 [place] tablet 00 (two) Medical times Branch daily with meals. cyclobenzap Yes [id number] 10mg Take 1 Univers rine 10 mg 2-08 tablet by ity of tablet 00:00: mouth 3 (three) Medical times Branch daily as needed for Muscle Spasms. traMADoL 50 Yes [id number] 50mg Take 1 Univ ers mg tablet 2-08 tablet by ity o f 00:00: mouth [place] 00 every 6 Medical (six) Branch hours as needed for Pain (scale 7-10). Indication s: acute pain naproxen Yes [id number] 500mg Take 1 U nivers (NAPROSYN) 2-08 tablet by ity of 500 mg 00:00: mouth 2 [place] tablet 00 (two) Medical times Branch daily with meals. cyclobenzap Yes [id number] 10mg Take 1 Univers rine 10 mg 2-08 tablet by ity of tablet 00:00: mouth 3 [place] 00 (three) Medical times Branch daily as needed for Muscle Spasms. Vital Signs Vital Name Observation Time Observation Value Comments Source Systolic blood 2022-01-11 19:34:00 116 mm[Hg] Univer sity of [facility] Diastolic blood 2022-01-11 19:34:00 77 mm[Hg] Unive rsity of [facility] Heart rate 2022-01-11 19:34:00 78 /min Universi ty of [facility] Respiratory rate 2022-01-11 19:34:00 20 /min Univ ersity of [place] [facility] Oxygen saturation in 2022-01-11 19:34:00 99 /min University of Arterial blood by [facility] Pulse oximetry Branch Body temperature 2022-01-11 15:35:00 36.67 Norma [facility] Body weight 2022-01-11 15:35:00 104.327 kg [facility] BMI 2022-01-11 15:35:00 37.12 kg/m2 [facility] Systolic blood 2021-08-19 04:28:52 143 mm[Hg] Univer sity of [facility] Diastolic blood 2021-08-19 04:28:52 83 mm[Hg] [facility] Heart rate 2021-08-19 04:28:52 95 /min [facility] Respiratory rate 2021-08-19 04:28:52 20 /min [facility] Oxygen saturation in 2021-08-19 04:28:52 97 /min University of Arterial blood by [facility] Pulse oximetry [place] Body temperature 2021-08-18 23:50:00 37.83 Norma [facility] Body height 2021-08-18 23:50:00 167.6 cm [facility] Body weight 2021-08-18 23:50:00 104.327 kg [facility] BMI 2021-08-18 23:50:00 37.12 kg/m2 [facility] Procedures Procedure Date / Time Performed Performing Clinician Sour e URINALYSIS 2022-01-11 18:12:00 Blaise Smith Bradley o f [facility] POCT TEST 2022-01-11 18:12:00 Blaise Smith [facility] CT LUMBAR SPINE WO 2022-01-11 16:42:35 [facility] CT THORACIC SPINE WO 2022-01-11 16:42:35 Blaise Smith [facility] CONTRAST Medical Branch COMP. METABOLIC PANEL 2022-01-11 16:27:00 Blaise Smith [facility] ([id number]) Medical [place] CBC WITH DIFF 2022-01-11 16:27:00 Blaise Smith Bradley o f [facility] ACTIVATED PARTIAL 2022-01-11 16:27:00 Blaise Smith [facility] THRMPLAS [facility] Branch CONSENT/REFUSAL FOR 2022-01-11 15:22:37 [facility] Name Medical Branch TREATMENT URINALYSIS 2021-08-19 03:07:00 Patrick Singh [facility] NOTICE OF PRIVACY 2021-08-18 23:46:31 Doctor Unassigned, No Univ ersity [facility] PRACTICES Name Medical Branch CONSENT/REFUSAL FOR 2021-08-18 23:46:18 Doctor Unassigned, No Un iversity of [place] DIAGNOSIS AND Name Medical Branch TREATMENT Encounters Start End Encounter Admission Attending Care Care Encounter Source Date/Time Date/Time Type Type Clinicians Facility Department ID 2022-01-11 2022-01-11 Emergency X [facility] ERT [id number] Univers 10:36:00 14:53:[facility] 2022-[facility]-11 2022-01-11 Emergency [facility] [id number] Univers 10:36:00 14:53:00 Blaise MORALES [id number] i ty [facility] [id number] [facility] [id number] [address] 2021-08-18 2021-08-19 Emergency X [facility] ERT [id number] Univers 19:42:00 00:05:00 PATRICK keene [facility] 2021-08-18 2021-08-19 Emergency [facility] [id number] Univers 19:42:00 00:05:00 Patrick MORALES [id number] ity [facility] [id number] [facility] [id number] [address] 2021-04-13 2021-04-13 Outpatient SONY Ziegler CATH [id number] [facility] 09:40:00 09:40:00 Paras 61 [facility] 2020-06-23 2020-06-23 Emergency X [facility] ERT [id number] Univers 11:08:00 11:08:00 [facility] Results Test Description Test Time Test Comments Results Result Comments Source POCT TEST 2022-01-11 18:12:00 Test Item Value Reference Range Interpretation Comme nts POCT PREG (test code = 1605) negative On board controls acceptable with C Line (test code = 3574) present POCT PREG LOT # (test code = 3575) [id number] POCT PREG TEST DATE (test code = 3576) Lab Interpretation (test code = 11619-9) Normal [facility] TH[facility] [id number] 17:01:15 Test Item Value Reference Range Interpretation Comments APTT Patient (test See_Comment [Automat ed code = 3173-2) message] The system which generated this result transmitted reference range : 23 - 38 Seconds . The reference range was not used to interpr et this result as normal/abnormal . CECIL (test code = CECIL) The [facility] patient population mean normal value for aPTT is 30 seconds. Lab Interpretation Normal (test code = 20087-7) [facility] (17227)2022-01-11 16:59:53 Test Item Value Reference Range Interpretation Comments NA (test code = 138 mmol/L 135-145 3930441385) K (test code = 4.9 mmol/L 3.5-5 8075771586) CL (test code = 108 mmol/L 98-108 3993214569) CO2 TOTAL (test code = 25 mmol/L 23-31 6965894653) AGAP (test code = 2-16 2206500363) BUN (test code = 13 mg/dL 7-23 6060530426) GLUCOSE (test code = 100 mg/dL 70-110 6635517883) CREATININE (test code = 1.09 mg/dL 0.5-1.04 H 2489474016) TOTAL BILI (test code = 0.1 mg/dL 0.1-1.6 2535087939) CALCIUM (test code = 9.0 mg/dL 8.6-10.6 0567082941) T PROTEIN (test code = 6.4 g/dL 6.3-8.2 5260460281) ALBUMIN (test code = 3.9 g/dL 3.5-5 1147720212) ALK PHOS (test code = 119 U/L 34-122 8048874950) ALTv (test code = 23 U/L 5-35 2-6) AST(SGOT) (test code = 24 U/L 13-40 2592300471) eGFR (test code = mL/min/1.73m2 1687029586) CECIL (test code = CECIL) Association of Glomerular Filtration Rate (GFR) and Staging of Kidney Disease* + --+ --+ ------+| GFR (mL/min/1.73 m2) ?| With Kidney Damage ?| ?Without Kidney Damage+ --------+ --------+ +| ?>90 ?| ?Stage one ?| ? Normal ?+ ---+ ---+ -------+| ?60-89 ?| ?Stage two ?| ? Decreased GFR ? + --+ --+ ------+| ?30-59 ?| ?Stage three ?| ? Stage three ? + --+ --+ ------+| ?15-29 ?| ?Stage four ? | ? Stage four ?+ ---+ ---+ -------+| ?<15 (or dialysis) ? ?| ?Stage five ? | ? Stage five ?+ ---+ ---+ -------+ *Each stage assumes the associated GFR level has been in effect for at least three months. ?Stages 1 to 5, with or without kidney disease, indicate chronic kidney disease. Notes: Determination of stages one and two (with eGFR >59mL/min/1.73 m2) requires estimation of kidney damage for at least three months as defined by structural or functional abnormalities of the kidney, manifested by either:Pathological abnormalities or Markers of kidney damage (including abnormalities in the composition of the blood or urine or abnormalities in imaging tests). Lab Interpretation Abnormal (test code = 46737-0) [facility] WITH [id number] 16:49:15 Test Item Value Reference Range Interpretation Comments WBC (test code = See_Comment [Automated 0793-2) message] The sy stem which generated this result transmitted reference range : 4.30 - 11.10 10*3/?L. The reference range was not used to interpret this result as normal/abnormal . RBC (test code = See_Comment [Automated 789-8) message] The sy stem which generated this result transmitted reference range : 3.93 - 5.25 10*6/?L. The reference range was not used to interpret this result as normal/abnormal . HGB (test code = 10.1 g/dL 11.6-15 L 718-7) HCT (test code = 33.0 % 35.7-45.2 L 4544-3) MCV (test code = 74.8 fL 80.6-95.5 L 787-2) MCH (test code = 22.9 pg 25.9-32.8 L 785-6) MCHC (test code = 30.6 g/dL 31.6-35.1 L 786-4) RDW-SD (test code = 45.5 fL 39-49.9 18509-3) RDW-CV (test code = 16.9 % 12-15.5 H 788-0) PLT (test code = See_Comment H [Automated 777-3) message] The sy stem which generated this result transmitted reference range : 166 - 358 10*3/ ?L. The reference r rex was not used to interpret this result as normal/abnormal . MPV (test code = 10.3 fL 9.5-12.9 05702-4) NRBC/100 WBC (test See_Comment [Automat ed code = 5046282333) message] The system which generated this result transmitted reference range : 0.0 - 10.0 /100 WBCs. The refer ence range was not u sed to interpret th is result as normal/abnormal . NRBC x10^3 (test code See_Comment [Auto mated = 8342912816) message] The s ystem which generated this result transmitted reference range : 10*3/?L. The reference range was not used to interpret this result as normal/abnormal . GRAN MAT (NEUT) % 55.9 % (test code = 770-8) IMM GRAN % (test code 0.60 % = 2935499740) LYMPH % (test code = 33.3 % 736-9) MONO % (test code = 6.9 % 5905-5) EOS % (test code = 2.6 % 713-8) BASO % (test code = 0.7 % 706-2) GRAN MAT x10^3(ANC) 4.52 10*3/uL 1.88-7.09 (test code = 9151918572) IMM GRAN x10^3 (test 0.05 10*3/uL 0-0.06 code = 2243996145) LYMPH x10^3 (test code 2.70 10*3/uL 1.32-3.29 = 731-0) MONO x10^3 (test code 0.56 10*3/uL 0.33-0.92 = 742-7) EOS x10^3 (test code = 0.21 10*3/uL 0.03-0.39 711-2) BASO x10^3 (test code 0.06 10*3/uL 0.01-0.07 = 704-7) Lab Interpretation Abnormal (test code = 50218-5) [facility]- XR CHEST 1 [id number] 10:53:00 [facility] 1975 Sex: F Name: JEM HURTADO [facility] : 1975 Age/S: 45 / F [address] [address] [place] Unit #: [id number] Loc: [place] [address] Phys: Paras Puri MD Acct: [id number] Dis Date: Status: [facility] PHONE #: [phone] Exam Date: 04/13/2021 1035 FAX #: Reason: PRE PROCEDURE EXAMS: CPT: [id number] XR CHEST 1 V 79323 Fluoro Time: DAP (Gy m2): Air Kerma [...] PAGE 1 Signed Report Name: JEM WILSON [place] : 1975 Age/S: 45 / F [address] [address] [place] Unit #: [id number] Loc: [place] [address] Phys: Paras Puri MD Acct: [id number] Dis Date: Status: REG [facility] PHONE #: [phone] Exam Date: 04/13/2021 1035 FAX #: Reason: PRE PROCEDURE EXAMS: CPT: [id number] XR CHEST 1 V 14092 Fluoro Time: DAP (Gy m2): Air Kerma (mGy): (Continued) Technologist: Bryanna Voss RT (R)(CT) Trnscb Date/Time: 04/13/2021 (1053) [email or web address] Orig Print D/T: S: 04/13/2021 (1056) PAGE 2 Signed Report COMPREHENSIVE METABOLIC [id number] 10:51:00 Test Item Value Reference Range Interpretation Comments SODIUM (test code = NA) 139 mmol/L 134-147 N POTASSIUM (test code = K) 4.2 mmol/L 3.4-5.0 N CHLORIDE (test code = CL) 111 mmol/L 100-108 H CARBON DIOXIDE (test code = CO2) 22 mmol/L 21-32 N ANION GAP (test code = GAP) 6.0 GAP calc 4.0-15.0 N GLUCOSE (test code = GLU) 84 MG/DL 70-110 N BLOOD UREA NITROGEN (test code = 12 MG/DL 7-18 N BUN) GLOMERULAR FILTRATION RATE (test 57 estGFR >60 L code = GFR) CREATININE (test code = CREAT) 1.1 MG/DL 0.6-1.0 H TOTAL PROTEIN (test code = PROT) 7.9 G/DL 6.4-8.2 N ALBUMIN (test code = ALB) 3.6 G/DL 3.4-5.0 N GLOBULIN (test code = GLOB) 4.3 GM/dL ALBUMIN/GLOBULIN RATIO (test 0.8 RATIO 1.2-2.2 L code = A/G) CALCIUM (test code = CA) 9.0 MG/DL 8.5-10.1 N BILIRUBIN TOTAL (test code = 0.30 MG/DL 0.2-1.2 N BILT) SGOT/AST (test code = AST) 12 Unit/L 15-37 L SGPT/ALT (test code = ALT) 19 Unit/L 12-78 N ALKALINE PHOSPHATASE TOTAL (test 141 Unit/L 45-117 H code = ALKP) PROTHROMBIN [id number] 10:42:00 Test Item Value Reference Range Interpretation Comments PT PATIENT (test 12.2 SECONDS 9.3-12.9 N code = PTP) INTERNATIONAL NORMAL 1.09 INR Unit 0.8-1.2 N TARGE T INR BY RATIO (test code = INDICATIO N Indication INR) INR1. Prophylax is of venous thrombos is 2.0 - 3.0 (orthoped ic surgery), Proph ylaxis of venous throm bosis (other than hig h-risk surgery), Treat ment of Deep Vein Thrombosis/Pulm onary Embolism, Preve ntion of systemic emb olism - Tissue heart va lves, Acute Myocardia l Infarction (to prevent systemic emboli sm), Valvular heart disease, Acute Myocardial Infa rction (to prevent sys temic embolism), Valv ular heart disease, Atrial Fibrillation, Bileaflet mecha nical valve in aortic position.2. Mec hanical prosthetic valv es (high risk), 2. 5 - 3.5 Presence of Lup us Anticoagulant o r Antiphospholipi d Antibodies, Pre vention of systemic emb olism - Acute Myocardia l Infarction (to prevent recurrent infar ct). THROMBOPLASTIN TIME [id number] 10:42:00 Test Item Value Reference Range Interpretation Comments THROMBOPLASTIN TIME PARTIAL 41.5 SECONDS 26-35 H (test code = PTT) CBC W/AUTO [id number] 10:34:00 Test Item Value Reference Range Interpretation [...] REQUIRED (test code NO DIFF/SCN CRITERIA = MDIFF)"
[2022-06-15] MEDS ORDERED: DIPHENHYDRAMINE 50 MG/ML VIAL ONE (08:47)
[2022-06-15] MEDS ORDERED: METHYLPREDNISOLONE 125 MG INJ ONE (08:47)
[2022-06-15] MEDS ORDERED: NA CHLORIDE 0.9% 1,000 ML ONE (08:48)
[2022-06-15] MEDS ORDERED: KETOROLAC 30 MG/ML INJ ONE (08:48)
--- NOTE | 2022-06-15 08:57 | RAD REPORT ---
EXAM DESCRIPTION: CT - Head Brain Wo Cont - 06/15/2022 8:44 am CLINICAL HISTORY: GUEVARA w/ photophobia COMPARISON: Head Brain Wo Cont dated 06/18/2019; Head Brain Wo Cont dated 01/24/2018 TECHNIQUE: Axial 5 mm thick images of the head were obtained without IV contrast. All CT scans are performed using dose optimization technique as appropriate and may include automated exposure control or mA/KV adjustment according to patient size. FINDINGS: No intracranial hemorrhage, mass or midline shift. No cortical based infarction seen. No a bnormal extra-axial fluid collections. Lateral ventricles are small with slit-like third ventricle. F ourth ventricle size is within normal range. Ventricles are similar in appearance to the 2019 in 2017 studies. No acute intracranial edema. Chronic pseudotumor cerebri is not likely but can be correlate d with clinical presentation and prior history. Mastoid air cells and visualized portions of the paranasal sinuses are clear. No acute bony findings. No globe or orbital content abnormality identified. IMPRESSION: No hemorrhage, acute edema, or other acute intracranial finding. Ventricles are small in size. This is a stable presentation back to 2018 and probably baseline for th e patient rather than chronic pseudotumor cerebri.
[2022-06-15 09:01] LABS: Absolute Lymphocytes (CBC) 2.3 K/uL (0.7-4.9); Hematocrit 31.1 % (36.0-45.0); Lymphocytes % 30.3 % (15.3-44.8); MCV 71.3 fL (80-100); RBC Red Blood Cell Count 4.36 M/uL (3.86-4.86)
[2022-06-15 09:13] LABS: Potassium 4.4 mmol/L (3.5-5.1)
[2022-06-15] MEDS ORDERED: PROMETHAZINE INJ 25 MG/ML AMP ONE (09:50)
[2022-06-15 10:00] LABS: White Blood Cell Scan OK (OK)
[2022-06-15 10:01] LABS: Anisocytosis 1+; Blood Morphology Comment NOTED (NOT SEEN); Hypochromasia 1+; Platelet Estimate INCR; Poikilocytosis 1+
--- NOTE | 2022-06-15 10:15 | ER ---
Nurse's Notes [facility] Name: April Ford Age: 46 yrs Sex: Female : 1975 Arrival Date: 06/15/2022 Time: 08:22 Bed 5 Private MD: Diagnosis: Migraine without aura, not intractable Presentation: 06/15 08:56 Chief complaint: Patient states: Migraine and dizziness x5 days. Coronavirus screen: [facility] Vaccine status: Patient reports receiving the 2nd dose of the covid vaccine. At this time, the client does not indicate any symptoms associated with coronavirus-19. Ebola Screen: No symptoms or risks identified at this time. Initial Sepsis Screen: Does the patient meet any 2 criteria? No. Patient's initial sepsis screen is negative. Does the patient have a suspected source of infection? No. Patient's initial sepsis screen is negative. Risk Assessment: Do you want to hurt yourself or someone else? Patient reports no desire to harm self or others. Onset of symptoms was June 11, 2022. 08:56 Method Of Arrival: Ambulatory [facility] 08:56 Acuity: BALDEMAR 3 [facility] Triage Assessment: 08:57 Headache History: The patient has had previous headaches and this one is similar to [facility] previous episodes. General: Appears in no apparent distress. uncomfortable, Behavior is calm, cooperative, appropriate for age. Pain: Complains of pain in [place] Pain currently is 10 out of 10 on a pain scale. Pain began x5 days Also complains of photophobia. Neuro: Level of Consciousness is awake, alert, obeys commands, Oriented to person, place, time, situation, Quotation Clerk are equal bilaterally Moves all extremities. Full function Gait is steady, Speech is normal, Facial symmetry appears normal. Cardiovascular: Patient's skin is warm and dry. Respiratory: Airway is patent Respiratory effort is even, unlabored, Respiratory pattern is regular, symmetrical. Derm: Skin is pink, warm \T\ dry. 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 - Social history:: Smoking status: Patient reports the use of cigarette tobacco products, smokes one-half pack cigarettes per day. Screenin:01 [facility] ED Fall Risk Assessment (Adult) History of falling in the last 3 months, jl7 including since admission No falls in past 3 months (0 pts) Confusion or Disorientation No (0 pts) Intoxicated or Sedated No (0 pts) Impaired Gait No (0 pts) Mobility Assist Device Used No (0 pt) Altered Elimination No (0 pt) Score/Fall Risk Level 0 - 2 = Low Risk Oriented to surroundings, Maintained a safe environment. Abuse screen: Denies threats or abuse. Denies injuries from another. Nutritional screening: No deficits noted. Tuberculosis screening: No symptoms or risk factors identified. Assessment: 09:01 General: See triage. jl7 10:00 Reassessment: Patient appears in no apparent distress at this time. No changes from jl previously documented assessment. Patient and/or family updated on plan of care and expected duration. Pain level reassessed. Patient is alert, oriented x 3, equal unlabored respirations, skin warm/dry/pink. Vital Signs: 08:56 BP 155 / 123; Pulse 98; Resp 15; Temp 98.7; Pulse Ox 98% ; Pain 10/10; jl7 09:00 BP 139 / 72; Pulse 78; Resp 15; Pulse Ox 98% ; jl7 10:00 BP 139 / 79; Pulse 70; Resp 15; Pulse Ox 96% ; jl7 [place] Coma Score: 10:26 Eye Response: spontaneous(4). Verbal Response: oriented(5). Motor Response: obeys jh7 commands(6). Total: 15. ED Course: 08:22 Patient arrived in ED. am2 08:28 Meri Dave FNP [facility] jh7 08:28 Marcus Cevallos MD is Attending Physician. jh7 08:40 Erik Michael RN is Primary Nurse. jl7 08:46 CT Head Brain wo Cont In Process Unspecified. EDMS 08:50 Initial lab(s) drawn, by ok, sent to lab. Inserted saline lock: 20 gauge in right [facility] antecubital area, using aseptic technique. Blood collected. 08:57 Triage completed. jl7 08:57 Arm band placed on right wrist. jl7 09:01 Patient has correct armband on for positive identification. Pulse ox on. NIBP on. jl7 10:34 No provider procedures requiring assistance completed. IV discontinued, intact, jl7 bleeding controlled, No redness/swelling at site. Pressure dressing applied. Administered Medications: 08:50 Drug: SOLU-Medrol (methylPrednisoLONE) 125 mg Route: IVP; Site: right antecubital; jl7 08:50 Drug: NS 0.9% 1000 ml Route: IV; Rate: 1 bolus; Site: right antecubital; jl7 08:55 Drug: Ketorolac 30 mg Route: IVP; Site: right antecubital; jl7 09:01 Not Given (allergicc): diphenhydrAMINE 25 mg IVP once jl7 09:50 Drug: Phenergan (promethazine) 25 mg Route: IVP; Site: right antecubital; jl7 10:25 Drug: morphine 2 mg Route: IVP; Infused Over: 4 mins; Site: right antecubital; Medication: 09:01 VIS not applicable for this client. jl7 Outcome: 10:15 Discharge ordered by . jh7 10:34 Discharged to home ambulatory. jl7 10:34 Condition: stable 10:34 Discharge instructions given to patient, family, Instructed on discharge instructions, follow up and referral plans. medication usage, Demonstrated understanding of instructions, follow-up care, medications, Prescriptions given X 1. 10:34 Patient left the ED. jl7 Signatures: Dispatcher [employer] EDDanielle Chicas RN RN iw Leal, Jahala, RN RN jl7 Lynnette Devlin Jennifer, FNP COMBAT SYSTEMS OFFICER 7
--- NOTE | 2022-06-15 10:15 | EDPHYS ---
Physician Documentation [facility] Name: April Ford Age: 46 yrs Sex: Female : 1975 Arrival Date: 06/15/2022 Time: 08:22 Bed 5 Private MD: ED Physician Marcus Cevallos HPI: 06/15 08:50 This 46 yrs old Female presents to ER via Ambulatory with complaints of Headache, jh7 Nausea, Dizziness. 08:50 The patient complains of pain to the forehead, right eye and left eye. The patient jh7 describes the headache as aching, throbbing. Onset: The symptoms/episode began/occurred 4 day(s) ago. Associated signs and symptoms: Pertinent positives: dizziness, nausea, Photophobia Pertinent negatives: altered mental status, fever, neck stiffness, vision loss, weakness. Headache History: The patient has had previous headaches and this one is similar to previous episodes, and this one is more severe than previous episodes. 46-year-old female presents with headache, nausea, dizziness, and photophobia. Reports that she has had a migraine headache since Tuesday. Has a history of migraines. States that although her symptoms are consistent with her prior migraines, this episode is worse. Denies weakness on one side of the body, visual loss, or changes in speech.. 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 - Social history:: Smoking status: Patient reports the use of cigarette tobacco products, smokes one-half pack cigarettes per day. ROS: 08:50 Constitutional: Negative for fever, chills, and weight loss, Eyes: Negative for injury, jh7 pain, redness, and discharge, ENT: Negative for injury, pain, and discharge, Neck: Negative for injury, pain, and swelling, Cardiovascular: Negative for chest pain, palpitations, and edema, Respiratory: Negative for shortness of breath, cough, wheezing, and pleuritic chest pain, Back: Negative for injury and pain, MS/Extremity: Negative for injury and deformity, Skin: Negative for injury, rash, and discoloration. 08:50 Abdomen/GI: Positive for nausea, Negative for abdominal pain, vomiting, diarrhea, constipation. 08:50 Neuro: Positive for dizziness, headache, Negative for altered mental status, gait disturbance, loss of consciousness, numbness, speech changes, syncope, tingling. 08:50 All other systems are negative. Exam: 08:50 Constitutional: This is a well developed, well nourished patient who is awake, alert, jh7 and in no acute distress. Head/Face: Normocephalic, atraumatic. Eyes: Pupils equal round and reactive to light, extra-ocular motions intact. Lids and lashes normal. Conjunctiva and sclera are non-icteric and not injected. Cornea within normal limits. Periorbital areas with no swelling, redness, or edema. ENT: Nares patent. No nasal discharge, no septal abnormalities noted. Tympanic membranes are normal and external auditory canals are clear. Oropharynx with no redness, swelling, or masses, exudates, or evidence of obstruction, uvula midline. Mucous membranes moist. Neck: Trachea midline, no thyromegaly or masses palpated, and no cervical lymphadenopathy. Supple, full range of motion without nuchal rigidity, or vertebral point tenderness. No Meningismus. Cardiovascular: Regular rate and rhythm with a normal S1 and S2. No gallops, murmurs, or rubs. Normal PMI, no JVD. No pulse deficits. Respiratory: Lungs have equal breath sounds bilaterally, clear to auscultation and percussion. No rales, rhonchi or wheezes noted. No increased work of breathing, no retractions or nasal flaring. Abdomen/GI: Soft, non-tender, with normal bowel sounds. No distension or tympany. No guarding or rebound. No evidence of tenderness throughout. Skin: Warm, dry with normal turgor. Normal color with no rashes, no lesions, and no evidence of cellulitis. MS/ Extremity: Pulses equal, no cyanosis. Neurovascular intact. Full, normal range of motion. Neuro: Awake and alert, GCS 15, oriented to person, place, time, and situation. Motor strength 5/5 in all extremities. Sensory grossly intact. Normal gait. 08:50 Constitutional: The patient appears alert, awake, uncomfortable. Vital Signs: 08:56 BP 155 / 123; Pulse 98; Resp 15; Temp 98.7; Pulse Ox 98% ; Pain 10/10; jl7 09:00 BP 139 / 72; Pulse 78; Resp 15; Pulse Ox 98% ; jl7 10:00 BP 139 / 79; Pulse 70; Resp 15; Pulse Ox 96% ; jl7 [place] Coma Score: 10:26 Eye Response: spontaneous(4). Verbal Response: oriented(5). Motor Response: obeys [facility] commands(6). Total: 15. MDM: 08:28 Patient medically screened. [facility] 10:26 Differential diagnosis: cluster headache, cerebral vascular accident, migraine, jh7 subarachnoid bleed, tension headache. Data reviewed: vital signs, nurses notes, lab test result(s), radiologic studies, CT scan. I considered the following discharge prescriptions or medication management in the emergency department Medications were administered in the Emergency Department. See MAR. Care significantly affected by the following chronic conditions: Migraine. Counseling: I had a detailed discussion with the patient and/or guardian regarding: the historical points, exam findings, and any diagnostic results supporting the discharge/admit diagnosis, to return to the emergency department if symptoms worsen or persist or if there are any questions or concerns that arise at home. Response to treatment: the patient's symptoms have markedly improved after treatment. 06/15 08:37 Order name: CBC with Diff; Complete Time: 10:05 [facility] 06/15 08:37 Order name: BMP; Complete Time: 09:16 [facility] 06/15 08:37 Order name: CT Head Brain wo Cont; Complete Time: 09:02 [facility] 06/15 10:02 Order name: CBC Smear Scan; Complete Time: 10:05 EDMS Administered Medications: 08:50 Drug: SOLU-Medrol (methylPrednisoLONE) 125 mg Route: IVP; Site: right antecubital; jl7 08:50 Drug: NS 0.9% 1000 ml Route: IV; Rate: 1 bolus; Site: right antecubital; jl7 08:55 Drug: Ketorolac 30 mg Route: IVP; Site: right antecubital; jl7 09:01 Not Given (allergicc): diphenhydrAMINE 25 mg IVP once jl7 09:50 Drug: Phenergan (promethazine) 25 mg Route: IVP; Site: right antecubital; jl7 10:25 Drug: morphine 2 mg Route: IVP; Infused Over: 4 mins; Site: right antecubital; Disposition: 18:07 Co-signature as Attending Physician, Marcus Cevallos MD. rn Disposition Summary: 06/15/22 10:15 Discharge Ordered Location: Home [facility] Problem: new [facility] Symptoms: have improved [facility] Condition: Stable [facility] Diagnosis - Migraine without aura, not intractable [facility] Followup: [facility] - With: Private Physician - When: 2 - 3 days - Reason: Recheck today's complaints Discharge Instructions: - Discharge Summary Sheet [facility] - Migraine Headache [facility] Forms: - Medication Reconciliation Form [facility] - Thank You Letter [facility] - Work release form [facility] Prescriptions: - Medrol ([place]) 4 mg Oral Tablets, Dose Pack - take 1 tablet by ORAL route as directed - follow package instructions; 1 [facility] packet; Refills: 0, Product Selection Permitted Signatures: 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
[2022-06-15] MEDS ORDERED: MORPHINE 2 MG/ML SYR ONE (10:25)
[2022-06-15 11:01] VITALS: TEMP 98.7
[2022-06-15 11:03] VITALS: BP 139/79; O2SAT 96
== END 2022-06-15 10:34 | disposition home or self-care (01) ==
LOC: ER 08:18
DX: G43.009 Migraine without aura, not intractable, without status migrainosus (principal); I10 Essential (primary) hypertension; F17.210 Nicotine dependence, cigarettes, uncomplicated; Z88.0 Allergy status to penicillin; Z88.8 Allergy status to other drugs, medicaments and biological substances
CPT/HCPCS: 36415; 70450; 80048; 85025; J1200; J2270; J2550; J2930; J7030

== ENCOUNTER 2022-07-01 14:41 | Emergency (ER) | payer SELFPAY ==
--- OUTSIDE RECORDS SUMMARY | 2022-07-01 14:45 | XMS REPORT | Continuity of Care Document ---
:[address] [facility] t Address [address] [place] [address] Care Team Providers Name Role Phone SALAS Hanna [facility] Primary Care P hysician Unavailable BLAISE SMITH Attending Clinician Unavailable Blaise Smith MD Attending Clinician PATRICK SINGH Attending Clinician Unavailable Patrick Singh MD Attending Clinician Paras Puri Attending Clinician Unavailable BLAISE SMITH Admitting Clinician Unavailable PATRICK SINGH Admitting Clinician Unavailable Dianne Stewart Admitting Clinician Unavailable Payers Payer Name Policy Type Policy Number Effective Date Expiration Date [facility] [id number] 2021 COMM 00:00:00 DARS DISABILITY [id number] 2014 DETERMINATION SVCS 00:00:00 Problems Condition Condition Condition Status Onset Resolution Last Treating Co mments Source Name Details Category Date Date Treatment Clinician Date No known No known Disease Unive rs active active ity of problems problems [facility] Allergies, Adverse Reactions, Alerts Allergy Allergy Status Severity Reaction(s) Onset Inactive Treating Comm ents Source Name Type Date Date Clinician BENADRYL DRUG Active High Swelling Univer s ALLERGY 4-05 ity of DECONGES 00:00: [place] TANT 00 Medical Branch Benadryl Propensi Active Swelling Univ ers Allergy ty to 4-05 ity of Deconges adverse 00:00: [place] tant reaction 00 Medical s Branch diphenhy DA Active SV HIVES AROUND 2020-05 [...] 00:00: child [place] reaction 00 Medical s Branch NO KNOWN Drug Active Univers ALLERGIE Class ity of [place] [facility] [place] Social History Social Habit Start Date Stop Date Quantity Comments Source Exposure to 2022-01-01 2022-01-11 Not sure [facility] SARS-CoV-2 (event) 00:00:00 10:34:00 Medica l Branch Sex Ass[birth year] At [birth year] [facility] [place] 00:00:00 00:00:00 Medical Branch Smoking Status Start Date Stop Date Source Tobacco smoking consumption [facility] unknown Branch Medications Ordered Filled Start Stop Current [...] [place] mg 00 :00 dose, On Medical Tue Branch 01/11/22 at 1330, STAT ondansetron 2021- No 4mg 4 mg, Slow Univers (ZOFRAN 01-11 IV Push, ity of (PF)) 17:15: 16:26 ONCE, 1 [place] injection 4 00 :00 dose, On Medi sharon mg Tue Branch 01/11/22 at 1215, ZEHRA morpHINE (4 2021- No 4mg 4 mg, Slow Univers mg/mL) 01-11 IV Push, ity of injection 4 16:15: 16:27 [place]CE[place] 1 [place] mg [place] :[place] dose, On [facility] Branch 01/11/22 at 1115, STAT ciprofloxac Yes [id number] 500mg Take 1 Univers in HCl 500 [...] Indication s: acute pain predniSONE 2021- No [id number] 20mg Take 1 Univers 20 mg 01-11 tablet by ity of tablet 00:00: 04:59 mouth in [place] 00 :00 the Medical morning Branch for 5 days. ketorolac 2021- No 30mg 30 mg, Unive rs (TORADOL) 08-19 04-06 Intramuscu ity of injection 03:15: 02:57 lar, ONCE, [place] 30 mg 00 :00 1 dose, On [facility] 08/18/21 Branch at 2215, ZEHRA predniSONE Yes [id number] TAKE ONE Univers 20 mg 4-05 TABLET BY ity of tablet 00:00: MOUTH [place] 00 DAILY Medical Branch gabapentin Yes [id number] 300mg Take 1 Univers 300 mg 4-05 capsule by ity of capsule 00:00: mouth 3 (three) Medical times Branch daily. predniSONE 2021-0 Yes [id number] TAKE ONE Univers 20 mg 4-05 TABLET BY ity of tablet 00:00: MOUTH 00 DAILY Medical Branch gabapentin 2021-0 Yes [id number] 300mg Take 1 Univers 300 mg 4-05 capsule by ity of capsule 00:00: mouth 3 (three) Medical times Branch daily. traMADoL 50 2020-0 Yes [id number] 50mg Take 1 Univ ers mg tablet 2-08 tablet by ity o f 00:00: mouth [place] 00 every 6 Medical (six) Branch hours as needed for Pain (scale 7-10). Indication s: acute pain naproxen 2020- Yes [id number] 500mg Take 1 U nivers (NAPROSYN) 2-08 tablet by ity of 500 mg 00:00: mouth 2 [place] tablet 00 (two) Medical times Branch daily with meals. cyclobenzap Yes [id number] 10mg Take 1 Univers rine 10 mg 2-08 tablet by ity of tablet 00:00: mouth 3 (three) Medical times Branch daily as needed for Muscle Spasms. traMADoL 50 2020-0 Yes [id number] 50mg Take 1 Univ ers mg tablet 2-08 tablet by ity o f 00:00: mouth [place] 00 every 6 Medical (six) Branch hours as needed for Pain (scale 7-10). Indication s: acute pain naproxen Yes [id number] 500mg Take 1 U nivers (NAPROSYN) 2-08 tablet by ity of 500 mg 00:00: mouth 2 [place] tablet 00 (two) Medical times Branch daily with meals. cyclobenzap 2020- Yes [id number] 10mg Take 1 Univers rine 10 mg 2-08 tablet by ity of tablet 00:00: mouth 3 [place] (three) Medical times Branch daily as needed for Muscle Spasms. Vital Signs Vital Name Observation Time Observation Value Comments Source Respiratory rate 2022-01-11 19:34:00 20 /min [facility] Medical Branch Oxygen saturation in 2022-01-11 19:34:00 99 /min [facility] Arterial blood by [facility] Pulse oximetry Branch Systolic blood 2022-01-11 19:34:00 116 mm[Hg] [facility] Diastolic blood 2022-01-11 19:34:00 77 mm[Hg] Unive rsity of pressure [facility] Heart rate 2022-01-11 19:34:00 78 /min [facility] Body temperature 2022-01-11 15:35:00 36.67 [facility] Body weight 2022-01-11 15:35:00 104.327 kg [facility] BMI 2022-01-11 15:35:00 37.12 kg/m2 [facility] Systolic blood 2021-08-19 04:28:52 143 mm[Hg] Univer sity of pressure [facility] Diastolic blood 2021-08-19 04:28:52 83 mm[Hg] [facility] Heart rate 2021-08-19 04:28:52 95 /min [facility] Respiratory rate 2021-08-19 04:28:52 20 /min [facility] Oxygen saturation in 2021-08-19 04:28:52 97 /min [facility] Arterial blood by [facility] Pulse oximetry [place] Body temperature 2021-08-18 23:50:00 37.83 [facility] Body height 2021-08-18 23:50:00 167.6 cm [facility] Body weight 2021-08-18 23:50:00 104.327 kg [facility] BMI 2021-08-18 23:50:00 37.12 kg/m2 [facility] Procedures Procedure Date / Time Performed Performing Clinician Sour e URINALYSIS 2022-01-11 18:12:00 Blaise Smith Brea o f [facility] POCT TEST 2022-01-11 18:12:00 Blaise Smith [facility] LUMBAR SPINE WO 2022-01-11 16:42:35 Blaise Smith [facility] [place] CONTRAST [facility] CT THORACIC SPINE WO 2022-01-11 16:42:35 Blaise Smith [facility] COMP. METABOLIC PANEL 2022-01-11 16:27:00 Blaise Smith [facility] ([id number]) Medical Branch CBC WITH DIFF 2022-01-11 16:27:00 Blaise Smith Brea o f [facility] ACTIVATED PARTIAL 2022-01-11 16:27:00 Blaise Smith [facility] THRMPLAS [facility] CONSENT/REFUSAL FOR 2022-01-11 15:22:37 Doctor Unassigned, No Un iversity [facility] DIAGNOSIS AND Name Medical Branch TREATMENT URINALYSIS 2021-08-19 03:07:[address] [facility] NOTICE OF PRIVACY 2021-08-18 23:46:31 Doctor Unassigned, No Univ ersity [facility] PRACTICES Name [facility] Branch CONSENT/REFUSAL FOR 2021-08-18 23:46:18 [facility] AND Name Medical [place] TREATMENT Encounters Start End Encounter Admission Attending Care Care Encounter Source Date/Time Date/Time Type Type Clinicians Facility Department ID 2022-01-11 2022-01-11 Emergency X [facility] ERT [id number] Univers 10:36:00 14:53:00 BLAISE keene [facility] 2022-01-11 2022-01-11 Emergency [facility] [id number] Univers 10:36:00 14:53:00 Blaise MORALES [id number] i ty [facility] [id number] [facility] [id number] [address] 2021-08-18 2021-08-19 Emergency X [facility] ERT [id number] Univers 19:42:00 00:05:00 PATRICK keene [facility] 2021-08-18 2021-08-19 Emergency [facility] [id number] Univers 19:42:00 00:05:00 Patrick MORALES [id number] ity [facility] [id number] [facility] [id number] [address] 2021-04-13 2021-04-13 Outpatient SONY Ziegler CATH [id number] [facility] 09:40:00 09:40:00 Paras 61 [facility] 2020-06-23 2020-06-23 Emergency X [facility] ERT [id number] Univers 11:08:00 11:08:00 [facility] Results Test Description Test Time Test Comments Results Result Comments Source POCT TEST 2022-01-11 18:12:00 Test Item Value Reference Range Interpretation Comme nts POCT PREG (test code = 1605) negative On board controls acceptable with C Line (test code = 3574) present POCT PREG LOT # (test code = 3575) [id number] POCT PREG TEST DATE (test code = 3576) Lab Interpretation (test code = 35066-3) Normal [facility] TH[facility] [id number] 17:01:15 Test Item Value Reference Range Interpretation Comments APTT Patient (test See_Comment [Automat ed code = 3173-2) message] The system which generated this result transmitted reference range : 23 - 38 Seconds . The reference range was not used to interpr et this result as normal/abnormal . CECIL (test code = CECIL) The [facility] patient population mean normal value for aPTT is 30 seconds. Lab Interpretation Normal (test code = 01046-3) [facility] (10515)2022-01-11 16:59:53 Test Item Value Reference Range Interpretation Comments NA (test code = 138 mmol/L 135-145 0163229737) K (test code = 4.9 mmol/L 3.5-5 1300313312) CL (test code = 108 mmol/L 98-108 4630087507) CO2 TOTAL (test code = 25 mmol/L 23-31 1513786138) AGAP (test code = 2-16 7558161219) BUN (test code = 13 mg/dL 7-23 2165427120) GLUCOSE (test code = 100 mg/dL 70-110 2303818035) CREATININE (test code = 1.09 mg/dL 0.5-1.04 H 2286456996) TOTAL BILI (test code = 0.1 mg/dL 0.1-1.3 3311583144) CALCIUM (test code = 9.0 mg/dL 8.6-10.6 5169279449) T PROTEIN (test code = 6.4 g/dL 6.3-8.2 6449786742) ALBUMIN (test code = 3.9 g/dL 3.5-5 0297996225) ALK PHOS (test code = 119 U/L 34-122 5320022603) ALTv (test code = 23 U/L 5-35 1742-6) AST(SGOT) (test code = 24 U/L 13-40 3865676773) eGFR (test code = mL/min/1.73m2 2291491750) CECIL (test code = CECIL) Association of [...] tests). Lab Interpretation Abnormal (test code = 70245-1) [facility] WITH [id number] 16:49:15 Test Item Value Reference Range Interpretation Comments WBC (test code = See_Comment [Automated 7290-2) message] The sy stem which generated this [...] RDW-SD (test code = 45.5 fL 39-49.9 04794-6) RDW-CV (test code = 16.9 % 12-15.5 H 788-0) PLT (test code = See_Comment H [Automated 777-3) message] The sy stem which generated this result transmitted reference range : 166 - 358 10*3/ ?L. The reference r rex was not used to interpret this result as normal/abnormal . MPV (test code = 10.3 fL 9.5-12.9 76068-7) NRBC/100 WBC (test See_Comment [Automat ed code = 6610346117) message] The system which generated this result transmitted reference range : 0.0 - 10.0 /100 WBCs. The refer ence range was not u sed to interpret th is result as normal/abnormal . NRBC x10^3 (test code See_Comment [Auto mated = 1812564563) message] The s ystem which generated this result transmitted reference range : 10*3/?L. The reference range was not used to interpret this result as normal/abnormal . GRAN MAT (NEUT) % 55.9 % (test code = 770-8) IMM GRAN % (test code 0.60 % = 1239017980) LYMPH % (test code = 33.3 % 736-9) MONO % (test code = 6.9 % 5905-5) EOS % (test code = 2.6 % 713-8) BASO % (test code = 0.7 % 706-2) GRAN MAT x10^3(ANC) 4.52 10*3/uL 1.88-7.09 (test code = 2245832022) IMM GRAN x10^3 (test 0.05 10*3/uL 0-0.06 code = 2345470490) LYMPH x10^3 (test code 2.70 10*3/uL 1.32-3.29 = 731-0) MONO x10^3 (test code 0.56 10*3/uL 0.33-0.92 = 742-7) EOS x10^3 (test code = 0.21 10*3/uL 0.03-0.39 711-2) BASO x10^3 (test code 0.06 10*3/uL 0.01-0.07 = 704-7) Lab Interpretation Abnormal (test code = 96291-6) [facility]- XR CHEST 1 [id number] 10:53:00 [facility] 1975 Sex: F Name: JEM HURTADO [facility] : 1975 Age/S: 45 / F [address] [place] Unit #: [id number] Loc:[place] [address] Phys: Paras Puri MD Acct: [id number] Dis Date: Status: [facility] PHONE #: [phone] Exam Date: 04/13/2021 1035 FAX #: Reason: PRE PROCEDURE EXAMS: CPT: [id number] XR CHEST 1 V 90187 Fluoro Time: DAP (Gy m2): Air Kerma (mGy): LOCATION: T18 EXAM: CHEST 1 VIEW INDICATION: , PREPROCEDURE COMPARISON: None. TECHNIQUE: AP chest radiograph. FINDINGS: Lungs are clear bilaterally without effusion. Heart is normal in size. Bones and peripheral soft tissues are unremarkable. IMPRESSION: Lungs are clear. No acute abnormality. at 1053 Reported and signed by: Evan Willis M.D. CC: Paras Puri MD; Dianne Stewart MD PAGE 1 Signed Report Name: JEM WILSON [place] : 1975 Age/S: 45 / F [address] [place] Unit #: [id number] Loc: [place] [address] Phys: Paras Puri MD Acct: [id number] Dis Date: Status:REG [facility] PHONE #: [phone] Exam Date: 04/13/2021 1035 FAX #: Reason: PRE PROCEDURE EXAMS: CPT: [id number] XR CHEST 1 V 70454 Fluoro Time: DAP (Gy m2): Air Kerma (mGy): (Continued) Technologist: Bryanna Voss RT (R)(CT) Trnscb Date/Time: 04/13/2021 (1053) [email or web address] Orig Print D/T: S: 04/13/2021 (4063) PAGE 2 Signed ReportCOMPREHENSIVE METABOLIC [id number] 10:51:00 Test Item Value Reference Range Interpretation [...] Unit/L 45-117 H code = ALKP) PROTHROMBIN [id number] 10:42:00 Test Item Value Reference Range Interpretation [...] (to prevent recurrent infar ct). THROMBOPLASTIN TIME [id number] 10:42:00 Test Item Value Reference Range Interpretation Comments THROMBOPLASTIN TIME PARTIAL 41.5 SECONDS 26-35 H (test code = PTT) CBC W/AUTO [id number] 10:34:00 Test Item Value Reference Range Interpretation [...]
[2022-07-01 15:04] LABS: Absolute Lymphocytes (CBC) 2.8 K/uL (0.7-4.9); Hematocrit 31.7 % (36.0-45.0); Lymphocytes % 30.3 % (15.3-44.8); MCV 69.8 fL (80-100); MPV 8.1 fL (7.6-11.3); RBC Red Blood Cell Count 4.54 M/uL (3.86-4.86)
[2022-07-01 15:06] LABS: Protime INR 0.97
[2022-07-01] MEDS ORDERED: LORazepam 2 MG/ML VIAL ONE (15:14)
[2022-07-01 15:38] LABS: ALT/SGPT 22 U/L (13-56); AST/SGOT 14 U/L (15-37); Albumin 3.4 g/dL (3.4-5.0); Alkaline Phosphatase 142 U/L (45-117); BUN Blood Urea Nitrogen 11 mg/dL (7-18); Bicarbonate 25 mmol/L (21-32); Bilirubin Total 0.2 mg/dL (0.2-1.0); Glomerular Filtration Rate 72 ml/min (=/>90); Glucose Level 90 mg/dL (74-106); Magnesium 1.9 mg/dL (1.6-2.4); NT PRO-BNP 6 pg/mL (<125); Potassium 4.1 mmol/L (3.5-5.1); Protein, Total 7.5 g/dL (6.4-8.2); Sodium Level 137 mmol/L (136-145); Troponin High Sensitivity 4.4 pg/mL (<58.9)
[2022-07-01 15:39] LABS: Bilirubin Direct < 0.1 mg/dL (0-0.2)
[2022-07-01 15:55] LABS: Blood Morphology Comment NOTED (NOT SEEN); Hypochromasia 1+; Platelet Estimate ADEQ; Platelets, Giant NOTED; White Blood Cell Scan OK (OK)
--- NOTE | 2022-07-01 16:19 | RAD REPORT ---
EXAM DESCRIPTION: Eric Single View07/01/2022 4:02 pm CLINICAL HISTORY: Chest pain COMPARISON: 2021 FINDINGS: The lungs appear clear of acute infiltrate. The heart is normal size IMPRESSION: No acute abnormalities displayed
[2022-07-01] MEDS ORDERED: ONDANSETRON 4 MG/2 ML VIAL ONE (17:55)
[2022-07-01] MEDS ORDERED: KETOROLAC 30 MG/ML INJ ONE (17:55)
[2022-07-01] MEDS ORDERED: MORPHINE 4 MG/ML SYR ONE (17:55)
--- NOTE | 2022-07-01 18:54 | ER ---
Nurse's Notes [facility] Name: April Ford Age: 46 yrs Sex: Female : 1975 Arrival Date: 07/01/2022 Time: 14:42 Bed 6 Private MD: Diagnosis: Chest pain, unspecified;Palpitations Presentation: 07/01 14:54 Chief complaint: Patient states: I was at work and i went to the school and my heart ld1 rate was high and my blood pressure is high too so the school nurse told me i needed to get here like now. I have a history of anxiety and panic attacks and I feel like i cant breath. Coronavirus screen: Vaccine status: Patient reports receiving the 2nd dose of the covid vaccine. Client denies travel out of the [place] in the last 14 days. Ebola Screen: Patient negative for fever greater than or equal to 101.5 degrees Fahrenheit, and additional compatible Ebola Virus Disease symptoms Patient denies exposure to infectious person. Patient denies travel to an Ebola-affected area in the 21 days before illness onset. Initial Sepsis Screen: Does the patient meet any 2 criteria? RR > 20 per min. HR > 90 bpm. No. Patient's initial sepsis screen is negative. Does the patient have a suspected source of infection? No. Patient's initial sepsis screen is negative. Risk Assessment: Do you want to hurt yourself or someone else? Patient reports no desire to harm self or others. Onset of symptoms was July 01, 2022. 14:54 Method Of Arrival: Ambulatory ld1 14:54 Acuity: BALDEMAR 3 ld1 Triage Assessment: 14:57 General: Appears uncomfortable, obese, Behavior is cooperative, anxious, crying. Pain: ld1 Complains of pain in chest. Cardiovascular: Reports chest pain, shortness of breath. 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 - Social history:: Smoking status: Patient reports the use of cigarette tobacco products, smokes one pack cigarettes per day. Screenin:59 [facility] ED Fall Risk Assessment (Adult) History of falling in the last 3 months, ld1 including since admission No falls in past 3 months (0 pts). Abuse screen: Denies threats or abuse. Denies injuries from another. Nutritional screening: No deficits noted. Tuberculosis screening: No symptoms or risk factors identified. Assessment: 14:59 General: Appears in no apparent distress. comfortable, Behavior is agitated, anxious, ld1 crying, fussy. Pain: Complains of pain in chest Pain does not radiate. Pain currently is 10 out of 10 on a pain scale. Quality of pain is described as heavy, sharp, Pain began 1 day ago. Is continuous. Neuro: Level of Consciousness is awake, alert, obeys commands, Oriented to person, place, time, situation. Cardiovascular: Capillary refill < 3 seconds Patient's skin is warm and dry. Rhythm is sinus rhythm. Respiratory: Airway is patent Respiratory effort is even, unlabored. GI: Abdomen is round non-distended. : No signs and/or symptoms were reported regarding the genitourinary system. EENT: No signs and/or symptoms were reported regarding the EENT system. Derm: No signs and/or symptoms reported regarding the dermatologic system. Musculoskeletal: No signs and/or symptoms reported regarding the musculoskeletal system. 16:31 Reassessment: No changes from previously documented assessment. ADD'L LABS DRAWN AND bp SENT. ALL CURRENT RESULTS UNREMARKABLE. 17:30 Reassessment: Patient appears in no apparent distress at this time. Patient and/or kr3 family updated on plan of care and expected duration. Pain level reassessed. Patient is alert, oriented x 3, equal unlabored respirations, skin warm/dry/pink. 18:24 Reassessment: Patient appears in no apparent distress at this time. Patient and/or kr3 family updated on plan of care and expected duration. Pain level reassessed. Patient is alert, oriented x 3, equal unlabored respirations, skin warm/dry/pink. Vital Signs: 14:54 BP 169 / 84; Pulse 110; Resp 21; Temp 98.4(O); Pulse Ox 100% on R/A; Weight 97.52 kg; ld1 Height 5 ft. 6 in. (167.64 cm); Pain 5/10; 14:59 BP 127 / 75; Pulse 93; Resp 16; Pulse Ox 96% on R/A; ld1 16:24 BP 109 / 55; Pulse 78; Resp 16; Pulse Ox 96% ; bp 17:30 BP 135 / 59; Pulse 80; Resp 18; Pulse Ox 98% on R/A; kr3 14:54 Body Mass Index 34.70 (97.52 kg, 167.64 cm) ld1 ED Course: 14:42 Patient arrived in ED. rg4 14:45 Saurav Hunt PA is PHCP. [facility] 14:45 Montse Avalos MD is Attending Physician. [facility] 14:57 Triage completed. ld1 14:57 Arm band placed on right wrist. ld1 14:58 Bessy Yusuf, CATA is Primary Nurse. ld1 14:59 No provider procedures requiring assistance completed. Inserted saline lock: 20 gauge ld1 in right antecubital area, using aseptic technique. Blood collected. 14:59 Patient maintains SpO2 saturation greater than 95% on room air. ld1 14:59 Patient has correct armband on for positive identification. Placed in gown. Bed in low ld1 position. Call light in reach. Side rails up X2. quality assurance monitor on. Pulse ox on. NIBP on. Door closed. Noise minimized. Warm blanket given. 16:04 XRAY Chest (1 view) In Process Unspecified. EDMS 17:53 Primary Nurse role handed off by Bessy Yusuf, RN bp 17:53 Renny Terrell, CATA is Primary Nurse. bp 18:52 Robin Jesus MD is Referral Physician. [facility] Administered Medications: 15:15 Drug: Ativan (LORazepam) 1 mg Route: IVP; Site: right antecubital; ld1 19:17 Follow up: Response: No adverse reaction; RASS: Alert and Calm (0) kr3 18:04 Drug: morphine 4 mg Route: IVP; Infused Over: 4 mins; Site: right antecubital; kr3 19:17 Follow up: Response: No adverse reaction; RASS: Alert and Calm (0) kr3 18:04 Drug: Zofran (Ondansetron) 4 mg Route: IVP; Site: right antecubital; kr3 19:16 Follow up: Response: No adverse reaction kr3 18:04 Drug: Ketorolac 30 mg Route: IVP; Site: right antecubital; kr3 19:16 Follow up: Response: No adverse reaction kr3 Medication: 14:59 VIS not applicable for this client. ld1 Outcome: 18:53 Discharge ordered by MD. mcdaniel 19:14 Patient left the ED. kr3 Signatures: Dispatcher [employer] EDMS Saurav Hunt PA PA jmm Garcia, Rubi rg4 Renny Terrell RN RN Bessy Yusuf RN RN ld1 Ana Craig RN RN kr3
--- NOTE | 2022-07-01 18:54 | EDPHYS ---
Physician Documentation [facility] Name: April Ford Age: 46 yrs Sex: Female : 1975 Arrival Date: 07/01/2022 Time: 14:42 Bed 6 Private MD: ED Physician Montse Avalos HPI: 07/01 14:45 This 46 yrs old Female presents to ER via Ambulatory with complaints of Chest Pain, jmm High Blood Pressure. 14:45 The patient presents with a history of heart racing. Onset: The symptoms/episode jmm began/occurred acutely, 2 week(s) ago. Duration: The patient or guardian reports a single episode, that is still ongoing. Modifying factors: The symptoms are aggravated by nothing. The symptoms are alleviated by nothing. Is a 46-year-old female with history of anxiety, migraines, panic attacks that presents emerged part with complaints of substernal chest pain and palpitations beginning approximately 2 to 3 weeks ago. Patient states that symptoms worsened this morning. Also complains of dyspnea on exertion. Denies fever.. 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 - Social history:: Smoking status: Patient reports the use of cigarette tobacco products, smokes one pack cigarettes per day. ROS: 14:45 Constitutional: Negative for fever, chills, and weight loss. jmm 14:45 Cardiovascular: Positive for chest pain, palpitations. 14:45 Respiratory: Positive for shortness of breath. 14:45 All other systems are negative. Exam: 14:45 Constitutional: This is a well developed, well nourished patient who is awake, alert, jmm and in no acute distress. Head/Face: atraumatic. Eyes: EOMI, no conjunctival erythema appreciated ENT: Moist Mucus Membranes Neck: Trachea midline, Supple Chest/axilla: Normal chest wall appearance and motion. Cardiovascular: Regular rate and rhythm. No edema appreciated Respiratory: Normal respirations, no respiratory distress appreciated Abdomen/GI: Non distended Back: Normal ROM Skin: General appearance color normal MS/ Extremity: Moves all extremities, no obvious deformities appreciated, no edema noted to the lower extremities Neuro: Awake and alert Psych: Behavior is normal, Mood is normal, Patient is cooperative and pleasant Vital Signs: 14:54 BP 169 / 84; Pulse 110; Resp 21; Temp 98.4(O); Pulse Ox 100% on R/A; Weight 97.52 kg; ld1 Height 5 ft. 6 in. (167.64 cm); Pain 5/10; 14:59 BP 127 / 75; Pulse 93; Resp 16; Pulse Ox 96% on R/A; ld1 16:24 BP 109 / 55; Pulse 78; Resp 16; Pulse Ox 96% ; bp 17:30 BP 135 / 59; Pulse 80; Resp 18; Pulse Ox 98% on R/A; kr3 14:54 Body Mass Index 34.70 (97.52 kg, 167.64 cm) ld1 MDM: 14:45 Patient medically screened. [facility] 18:50 Data reviewed: vital signs, nurses notes. I considered the following discharge [facility] prescriptions or medication management in the emergency department Medications were administered in the Emergency Department. See MAR. Independent interpretation of the following test(s) in the Emergency Department X-Ray: My interpretation is No infiltrate,. Historians other than the Patient: Daughter. Scoring Tools HEART Score: Total Score = 2. Counseling: I had a detailed discussion with the patient and/or guardian regarding: the historical points, exam findings, and any diagnostic results supporting the discharge/admit diagnosis, lab results, radiology results, the need for outpatient follow up, to return to the emergency department if symptoms worsen or persist or if there are any questions or concerns that arise at home. 07/01 14:46 Order name: Basic Metabolic Panel; Complete Time: 15:49 [facility] 07/01 14:46 Order name: CBC with Diff; Complete Time: 16:02 [facility] 07/01 14:46 Order name: LFT's; Complete Time: 15:49 [facility] 07/01 14:46 Order name: Magnesium; Complete Time: 15:49 [facility] 07/01 14:46 Order name: NT PRO-BNP; Complete Time: 15:49 [facility] 07/01 14:46 Order name: PT-INR; Complete Time: 15:34 [facility] 07/01 14:46 Order name: Troponin HS; Complete Time: 15:49 [facility] 07/01 14:46 Order name: XRAY Chest (1 view); Complete Time: 16:20 [facility] 07/01 15:07 Order name: CBC Smear Scan; Complete Time: 16:02 [facility] 07/01 15:50 Order name: D-Dimer; Complete Time: 16:44 [facility] 07/01 17:37 Order name: Troponin High Sensitivity; Complete Time: 18:31 [facility] 07/01 14:46 Order name: EKG; Complete Time: 14:47 [facility] 07/01 14:46 Order name: Cardiac monitoring; Complete Time: 14:58 [facility] 07/01 14:46 Order name: EKG - Nurse/Tech; Complete Time: 14:58 [facility] 07/01 14:46 Order name: IV Saline Lock; Complete Time: 14:58 [facility] 07/01 14:46 Order name: Labs collected and sent; Complete Time: 14:58 [facility] 07/01 14:46 Order name: O2 Per Protocol; Complete Time: 14:58 [facility] 07/01 14:46 Order name: O2 Sat Monitoring; Complete Time: 14:58 [facility] Administered Medications: 15:15 Drug: Ativan (LORazepam) 1 mg Route: IVP; Site: right antecubital; ld1 19:17 Follow up: Response: No adverse reaction; RASS: Alert and Calm (0) kr3 18:04 Drug: morphine 4 mg Route: IVP; Infused Over: 4 mins; Site: right antecubital; kr3 19:17 Follow up: Response: No adverse reaction; RASS: Alert and Calm (0) kr3 18:04 Drug: Zofran (Ondansetron) 4 mg Route: IVP; Site: right antecubital; kr3 19:16 Follow up: Response: No adverse reaction kr3 18:04 Drug: Ketorolac 30 mg Route: IVP; Site: right antecubital; kr3 19:16 Follow up: Response: No adverse reaction kr3 Disposition Summary: 07/01/22 18:53 Discharge Ordered Location: Home jmm Condition: Stable jmm Diagnosis - Chest pain, unspecified jmm - Palpitations jmm Followup: jmm - With: Robin Jesus MD - When: 2 - 3 days - Reason: Recheck today's complaints, Continuance of care, Re-evaluation by your physician Discharge Instructions: - Discharge Summary Sheet jmm - Nonspecific Chest Pain, Adult violeta - Palpitations antionette Forms: - Medication Reconciliation Form violeta - Thank You Letter violeta - Antibiotic Education antionettem - Prescription Opioid Use jmm - Work release form kr3 Prescriptions: - orphenadrine citrate 100 mg Oral Tablet Sustained Release - take 1 tablet by ORAL route 2 times per day As needed; 20 tablet; Refills: 0, jmm Product Selection Permitted Signatures: Dispatcher [employer] EDSaurav Tong PA PA jmm Dibbern, Lauren, RN RN ld1 Ana Craig RN RN kr3
[2022-07-01 20:24] VITALS: TEMP 98.4
[2022-07-01 20:26] VITALS: BP 135/59; O2SAT 98
--- NOTE | 2022-07-02 16:03 | EKG ---
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
== END 2022-07-01 19:14 | disposition home or self-care (01) ==
LOC: ER 14:41
DX: R07.9 Chest pain, unspecified (principal); R00.2 Palpitations
CPT/HCPCS: 36415; 71045; 80048; 80076; 83735; 83880; 84484; 85025; 85379; 85610; 93005; 96374; 96375; 99285; J2405

== ENCOUNTER 2023-04-09 17:51 | Emergency (ER) | payer OTHER, SELFPAY ==
--- OUTSIDE RECORDS SUMMARY | 2023-04-09 17:55 | XMS REPORT | Continuity of Care Document ---
:1975 Author Organization [facility] t Address [address] [place] [address] [address] [place] [address] Care Team Providers Name Role Phone SALAS Hanna [facility] Primary Care P hysician Unavailable MAYCO DEL RIO Attending Clinician Unavailable Mayco Del Rio MD Attending Clinician Shefali Whitney PTA Attending Clinician Unavailable Garrett Herrera MD Attending Clinician GARRETT HERRERA Attending Clinician Unavailable Mayco Greer PTA Attending Clinician Unavailable Sandra Clarke PTA Attending Clinician Unavailable Fabiana Sanderson PT Attending Clinician Unavailable Doctor Unassigned, [place] Attending Clinician Unavailable BLAISE SALAS Attending Clinician Unavailable Blaise Salas MD Attending Clinician PATRICK SINGH Attending Clinician Unavailable Patrick Singh MD Attending Clinician Paras Puri Attending Clinician Unavailable MAYCO DEL RIO Admitting Clinician Unavailable BLAISE SALAS Admitting Clinician Unavailable PATRICK SINGH Admitting Clinician Unavailable Dianne Stewart Admitting Clinician Unavailable Payers Payer Name Policy Type Policy Number Effective Date Expiration Date Arianna [employer] [id number] 2022 OF NETWORK 00:00:00 DARS DISABILITY [id number] 2014 DETERMINATION SVCS 00:00:00 Problems Condition Condition Condition Status Onset Resolution Last Treating Co mments Source Name Details Category Date Date Treatment Clinician Date No known No known Disease Unive rs active active ity of problems problems [facility] Allergies, Adverse Reactions, Alerts Allergy Allergy Status Severity Reaction(s) Onset Inactive Treating Comm ents Source Name Type Date Date Clinician BENADRYL DRUG Active High Swelling Univer s ALLERGY 4-05 ity of DECONGES 00:00: [place] TANT 00 Medical Branch Benadryl Propensi Active Swelling Univ ers Allergy ty to 4-05 ity of Deconges adverse 00:00: [place] tant reaction 00 [facility] s Branch diphenhy DA Active SV HIVES AROUND 2020-05 HC A dramine HER BODY 06-13 [place] 00:00: d [facility] Penicill DA Active U UNKNOWN 2020-05 [facility] ins ACCORDING TO 06-13 [place] PATIENT 00:00: d BEING TOLD 00 Medica l SINCE SHE Center WAS A CHIL PENICILL DRUG Active Unknown-Cmnt Un rome IN INGREDI 08 ity of 00:00: [place] 00 Medical Branch Penicill Propensi Active Unknown - Was told U nivers in ty to See comments 06-23 as a ity of adverse 00:00: child [place] reaction 00 Medical s [place] NO KNOWN Drug Active Univers ALLERGIE Class ity of S [facility] Social History Social Habit Start Date Stop Date Quantity Comments Source Gender identity Universit y [facility] to 2022-01-01 2022-01-11 Not sure [facility] SARS-CoV-2 (event) 00:00:00 10:34:00 Medica l Branch Sex Ass[birth year] At [birth year] [facility] 00:00:00 00:00:00 Medical Branch Smoking Status Start Date Stop Date Source Tobacco smoking consumption Univ [facility] Medical unknown Branch Medications Ordered Filled Start Stop Current Ordering Indication Dosage Frequency Signature Comments Components Source Medication Medication Date Date Medication? Clinician (SIG) Name Name mya 2022- No 500mg 500 mg, Dennis jain n 01-19 Oral, ity of (ZITHROMAX) 00:45: 01:14 [place]CE[place] tablet 500 [place] :00 dose, On Medic al mg Tue01/18/23 Branch at 1945, ZEHRA
Re ason for Anti-Infec tive: Documented Infection< br>Documen ashly Infection Site: Respirator y
Durat ion of Therapy: 7 days furosemide 2022- No 20mg 20 mg, [facility] ers (LASIX) 01-19 Oral, ity of tablet 20 00:45: 01:14 ONCE, [place] mg [place] :00 dose, On Tue01/18/23 Branch at 1945, ZEHAR predniSONE 2022- Yes [id number] 40mg Take 2 Univers 20 mg 01-19 tablets by ity of tablet 00:00: 04:59 mouth in [place] 00 :00 the Medical morning Branch for 7 days. ipratropium 2022- No 3mL 3 mL, [facility] ers -albuteroL 01-18 Inhalation it y of (DUONEB) 19:45: 20:30 , ONCE, 1 [place] as 0.5 mg-3 00 :00 dose, On Medical mg(2.5 mg Tue01/18/23 Bran ch base)/3 mL at 1445, nebulizer ZEHRA solution 3 mL predniSONE 2022- No 40mg 40 mg, [facility] ers (DELTASONE) 01-18 Oral, ity of tablet 40 19:00: 20:26 ONCE, [place] mg 00 :00 dose, On Tue01/18/23 Branch at 1400, ZEHRA albuterol 2022-0 Yes [id number] 2{puff} Inhale 2 Univers 90 01-18 Puffs ity of mcg/actuati 00:00: every 4 [place] as on inhaler 00 (four) Medical hours as Branch needed for Wheezing or Shortness of Breath. benzonatate Yes [id number] 200mg Take 1 Univers 200 mg 9-05 capsule by ity of capsule 00:00: mouth 3 [place] 00 (three) Medical times Branch daily as needed for Cough. azithromyci Yes [id number] 250mg Take 1 Univers n 250 mg 9-05 tablet by ity of tablet 00:00: mouth 00 SEE-INSTRU Medical CTIONS. Branch Take 500 mg day 1, then 250 mg days 2 to 5. furosemide Yes [id number] 20mg Take 1 Univers 20 mg 9-05 tablet by ity of tablet 00:00: mouth [place] 00 every Medical morning. Branch ketorolac 2021- No 30mg 30 mg, Unive rs (TORADOL) 01-11 Slow IV ity of injection 19:30: 18:34 Push, [place] 30 mg 00 :00 ONCE, 1 Medical dose, On Branch [facility] 01/11/22 at 1430, ZEHRA morpHINE (4 2021- No 4mg 4 mg, Slow Univers mg/mL) 01-11 IV Push, ity of injection 4 18:30: 18:34 [place]CE[place] 1 [place] mg 00 :00 dose, On Medical [facility] Branch 01/11/22 at 1330, STAT ondansetron 2021- No 4mg 4 mg, Slow Univers (ZOFRAN 01-11 IV Push, ity of (PF)) 17:15: 16:26 ONCE, 1 [place] injection 4 00 :00 dose, On Medi sharon mg [facility] 01/11/22 at 1215, ZEHRA morpHINE (4 2021- No 4mg 4 mg, Slow Univers mg/mL) 01-11 IV Push, ity of injection 4 16:15: 16:27 ONCE, 1 [place] mg 00 :00 dose, On [facility] Branch 01/11/22 at 1115, STAT ciprofloxac Yes [id number] 500mg Take 1 Univers in HCl 500 8-29 tablet by ity of mg tablet 00:00: [place] 00 the Medical morning Branch and 1 tablet in the evening. ciprofloxac Yes [id number] 500mg Take 1 Univers in HCl 500 8-29 tablet by ity of mg tablet 00:00: [place] 00 the Medical morning Branch and 1 tablet in the evening. ciprofloxac 2-0 Yes [id number] 500mg Take 1 Univers in HCl 500 8-29 tablet by ity of mg tablet 00:00: [place] 00 the [place] morning Branch and 1 tablet in the evening. ciprofloxac 2-0 Yes [id number] 500mg Take 1 Univers in HCl 500 8-29 tablet by ity of mg tablet 00:00: [place] 00 the Medical morning Branch and 1 tablet in the evening. ciprofloxac 2-0 Yes [id number] 500mg Take 1 Univers in HCl 500 8-29 tablet by ity of mg tablet 00:00: [place] 00 the Medical morning Branch and 1 tablet in the evening. ciprofloxac 2-0 Yes [id number] 500mg Take 1 Univers in HCl 500 8-29 tablet by ity of mg tablet 00:00: [place] 00 the Medical morning Branch and 1 tablet in the evening. ciprofloxac 2-0 Yes [id number] 500mg Take 1 Univers in HCl 500 8-29 tablet by ity of mg tablet 00:00: [place] 00 the Medical morning Branch and 1 tablet in the evening. ciprofloxac 2-0 Yes [id number] 500mg Take 1 Univers in HCl 500 8-29 tablet by ity of mg tablet 00:00: [place] 00 the Medical morning Branch and 1 tablet in the evening. ciprofloxac 2-0 Yes [id number] 500mg Take 1 Univers in HCl 500 8-29 tablet by ity of mg tablet 00:00: [place] 00 the Medical morning Branch and 1 tablet in the evening. HYDROcodone 2021-0 2021- No [id number] 1{tbl} Take 1 U nivers -acetaminop -01-19 tablet by it y of hen (NORCO) 00:00: 04:59 [place] 7.5-325 mg 00 :00 every 8 Medica l per tablet (eight) Branch hours as needed for Pain for up to 7 days. Indication s: acute pain predniSONE 2021-0 2021- No [id number] 20mg Take 1 Univers 20 mg 8-29 09-04 tablet by ity of tablet 00:00: 04:59 mouth in [place] 00 :00 the Medical morning Branch for 5 days. ketorolac 2021-0 2021- No 30mg 30 mg, Unive rs (TORADOL) 08-19-06 Intramuscu ity of injection 03:15: 02:57 lar, ONCE, [place] 30 mg 00 :00 1 dose, On Medical Tu08/18/21 Branch at 2215, ZEHRA predniSONE 2021-0 Yes [id number] TAKE ONE Univers 20 mg 4-05 TABLET BY ity of tablet 00:00: MOUTH [place] DAILY Medical Branch gabapentin 2021-0 Yes [id number] 300mg Take 1 Univers 300 mg 4-05 capsule by ity of capsule 00:00: mouth [place] (three) Medical times Branch daily. predniSONE 2021-0 Yes [id number] TAKE ONE Univers 20 mg 4-05 TABLET BY ity of tablet 00:00: MOUTH [place] DAILY Medical Branch gabapentin 2021-0 Yes [id number] 300mg Take 1 Univers 300 mg 4-05 capsule by ity of capsule 00:00: mouth [place] (three) Medical times Branch daily. predniSONE 2021-0 Yes [id number] TAKE ONE Univers 20 mg 4-05 TABLET BY ity of tablet 00:00: MOUTH [place] DAILY Medical Branch gabapentin 2021-0 Yes [id number] 300mg Take 1 Univers 300 mg 4-05 capsule by ity of capsule 00:00: mouth [place] (three) Medical times Branch daily. predniSONE 2021-0 Yes [id number] TAKE ONE Univers 20 mg 4-05 TABLET BY ity of tablet 00:00: MOUTH [place] DAILY Medical Branch gabapentin 2021-0 Yes [id number] 300mg Take 1 Univers 300 mg 4-05 capsule by ity of capsule 00:00: mouth [place] (three) Medical times Branch daily. predniSONE 2021-0 Yes [id number] TAKE ONE Univers 20 mg 4-05 TABLET BY ity of tablet 00:00: MOUTH [place] DAILY Medical Branch gabapentin 2-0 Yes [id number] 300mg Take 1 Univers 300 mg 4-05 capsule by ity of capsule 00:00: mouth [place] (three) Medical times Branch daily. predniSONE 2021-0 Yes [id number] TAKE ONE Univers 20 mg 4-05 TABLET BY ity of tablet 00:00: MOUTH DAILY Medical Branch gabapentin 2022-0 Yes [id number] 300mg Take 1 Univers 300 mg 4-05 capsule by ity of capsule 00:00: mouth (three) Medical times Branch daily. predniSONE 2022-0 Yes [id number] TAKE ONE Univers 20 mg 4-05 TABLET BY ity of tablet 00:00: MOUTH DAILY Medical Branch gabapentin 2022-0 Yes [id number] 300mg Take 1 Univers 300 mg 4-05 capsule by ity of capsule 00:00: mouth (three) Medical times Branch daily. predniSONE 2-0 Yes [id number] TAKE ONE Univers 20 mg 4-05 TABLET BY ity of tablet 00:00: MOUTH DAILY Medical Branch gabapentin 2-0 Yes [id number] 300mg Take 1 Univers 300 mg 4-05 capsule by ity of capsule 00:00: [facility] (three) Medical times Branch daily. predniSONE 2021-0 Yes [id number] TAKE ONE Univers 20 mg 4-05 TABLET BY ity of tablet 00:00: MOUTH DAILY Medical Branch gabapentin 2-0 Yes [id number] 300mg Take 1 Univers 300 mg 4-05 capsule by ity of capsule 00:00: mouth (three) Medical times Branch daily. predniSONE 2-0 Yes [id number] TAKE ONE Univers 20 mg 4-05 TABLET BY ity of tablet 00:00: MOUTH DAILY Medical Branch gabapentin 2-0 Yes [id number] 300mg Take 1 Univers 300 mg 4-05 capsule by ity of capsule 00:00: mouth (three) Medical times Branch daily. traMADoL 50 2020-0 Yes [id number] 50mg Take 1 Univ ers mg tablet 2-08 tablet by ity o f 00:00: mouth 00 every 6 Medical (six) Branch hours as needed for Pain (scale 7-10). Indication s: acute pain naproxen 2020-0 Yes [id number] 500mg Take 1 U nivers (NAPROSYN) 2-08 tablet by ity of 500 mg 00:00: mouth 2 [place] tablet 00 (two) Medical times Branch daily with meals. cyclobenzap 2020-0 Yes [id number] 10mg Take 1 Univers rine 10 mg [...] (scale 7-10). Indication s: acute pain naproxen 2020-0 Yes [id number] 500mg Take 1 U nivers (NAPROSYN) 2-08 tablet by ity of 500 mg 00:00: mouth 2 [place] tablet 00 (two) Medical times Branch daily with meals. cyclobenzap 2020-0 Yes [id number] 10mg Take 1 Univers rine 10 mg [...] (scale 7-10). Indication s: acute pain naproxen 2020-0 Yes [id number] 500mg Take 1 U nivers (NAPROSYN) 2-08 tablet by ity of 500 mg 00:00: mouth 2 [place] tablet 00 (two) Medical times Branch daily with meals. cyclobenzap 2020-0 Yes [id number] 10mg Take 1 Univers rine 10 mg [...] (scale 7-10). Indication s: acute pain naproxen 2020-0 Yes [id number] 500mg Take 1 U nivers (NAPROSYN) 2-08 tablet by ity of 500 mg 00:00: mouth 2 [place] tablet 00 (two) Medical times Branch daily with meals. cyclobenzap 2020-0 Yes [id number] 10mg Take 1 Univers rine 10 mg [...] (scale 7-10). Indication s: acute pain naproxen 2020-0 Yes [id number] 500mg Take 1 U nivers (NAPROSYN) 2-08 tablet by ity of 500 mg 00:00: mouth 2 [place] tablet 00 (two) Medical times Branch daily with meals. cyclobenzap 2020-0 Yes [id number] 10mg Take 1 Univers rine 10 mg [...] (scale 7-10). Indication s: acute pain naproxen 2020-0 Yes [id number] 500mg Take 1 U nivers (NAPROSYN) 2-08 tablet by ity of 500 mg 00:00: mouth 2 [place] tablet 00 (two) Medical times Branch daily with meals. cyclobenzap 2020-0 Yes [id number] 10mg Take 1 Univers rine 10 mg [...] (scale 7-10). Indication s: acute pain naproxen 2020-0 Yes [id number] 500mg Take 1 U nivers (NAPROSYN) 2-08 tablet by ity of 500 mg 00:00: mouth 2 [place] tablet 00 (two) Medical times Branch daily with meals. cyclobenzap 202-0 Yes [id number] 10mg Take 1 Univers rine 10 mg [...] (scale 7-10). Indication s: acute pain naproxen 2020-0 Yes [id number] 500mg Take 1 U nivers (NAPROSYN) 2-08 tablet by ity of 500 mg 00:00: mouth 2 [place] tablet 00 (two) Medical times Branch daily with meals. cyclobenzap 2020-0 Yes [id number] 10mg Take 1 Univers rine 10 mg [...] (scale 7-10). Indication s: acute pain naproxen 2020-0 Yes [id number] 500mg Take 1 U nivers (NAPROSYN) 2-08 tablet by ity of 500 mg 00:00: mouth 2 [place] tablet 00 (two) Medical times Branch daily with meals. cyclobenzap 2020-0 Yes [id number] 10mg Take 1 Univers rine 10 mg [...] (scale 7-10). Indication s: acute pain naproxen 1-0 Yes [id number] 500mg Take 1 U nivers (NAPROSYN) 2-08 tablet by ity of 500 mg 00:00: mouth 2 [place] tablet 00 (two) Medical times Branch daily with meals. cyclobenzap 1-0 Yes [id number] 10mg Take 1 Univers rine 10 mg 2-08 tablet by ity of tablet 00:00: mouth 3 [place] 00 (three) Medical times Branch daily as needed for Muscle Spasms. Vital Signs Vital Name Observation Time Observation Value Comments Source Systolic blood 2023-01-19 01:00:00 176 mm[Hg] Univer sity of pressure [place] Medical [facility] Diastolic blood 2023-01-19 01:00:00 96 mm[Hg] Unive rsity of pressure [place] [facility] Heart rate 2023-01-19 01:00:00 76 /min Universi ty of [place] [facility] Respiratory rate 2023-01-19 01:00:00 18 /min Univ ersity of [place] [facility] Oxygen saturation in 2023-01-19 01:00:00 95 /min University of Arterial blood by [place] Qui.lt sharon Pulse oximetry Branch Body temperature 2023-01-18 18:33:00 37.22 Norma Univ ersity of [place] [facility] Body height 2023-01-18 18:33:00 167.6 cm Universi ty of [place] [facility] Body weight 2023-01-18 18:33:00 110.224 kg Universi ty of [place] [facility] BMI 2023-01-18 18:33:00 39.22 kg/m2 Universi ty of [place] [facility] Systolic blood 2022-01-11 19:34:00 116 mm[Hg] Univer sity of pressure [place] [facility] Diastolic blood 2022-01-11 19:34:00 77 mm[Hg] Unive rsity of pressure [place] [facility] Heart rate 2022-01-11 19:34:00 78 /min Universi ty of [place] [facility] Respiratory rate 2022-01-11 19:34:00 20 /min Univ ersity of [place] [facility] Oxygen saturation in 2022-01-11 19:34:00 99 /min University of Arterial blood by [place] Qui.lt sharon Pulse oximetry Branch Body temperature 2022-01-11 15:35:00 36.67 Norma Univ ersity of [place] [facility] Body weight 2022-01-11 15:35:00 104.327 kg Universi ty of [place] [facility] BMI 2022-01-11 15:35:00 37.12 kg/m2 Universi ty of [place] [facility] Systolic blood 2021-08-19 04:28:52 143 mm[Hg] Univer sity of pressure [place] [facility] Diastolic blood 2021-08-19 04:28:52 83 mm[Hg] Unive rsity of pressure [place] [facility] Heart rate 2021-08-19 04:28:52 95 /min Universi ty of [place] [facility] Respiratory rate 2021-08-19 04:28:52 20 /min [facility] Oxygen saturation in 2021-08-19 04:28:52 97 /min [facility] Arterial blood by [facility] Pulse oximetry Branch Body temperature 2021-08-18 23:50:00 37.83 Norma [facility] Body height 2021-08-18 23:50:[address] [facility] Body weight 2021-08-18 23:50:[address] [facility] BMI 2021-08-18 23:50:00 37.12 kg/m2 [facility] Procedures Procedure Date / Time Performed Performing Clinician Sour e EKG-12 LEAD 2023-01-19 00:43:35 Mayco Del Rio [facility] TROPONIN I 2023-01-18 23:17:00 Mayco Del Rio [facility] LIPASE 2023-01-18 20:22:00 Mayco Del Rio [facility] TROPONIN I 2023-01-18 20:22:00 Mayco Del Rio [facility] COMP. METABOLIC PANEL 2023-01-18 20:22:00 Mayco Del Rio [facility] ([id number]) [facility] CBC WITH DIFF 2023-01-18 20:22:00 [facility] N-TERMINAL PRO-BNP 2023-01-18 20:22:00 Mayco Del Rio [facility] COVID-19 (ID NOW RAPID 2023-01-18 20:22:00 Mayco Del Rio [facility] TESTING) [facility] XR CHEST 2 VW 2023-01-18 19:19:28 Mayco Del Rio [facility] CONSENT/REFUSAL FOR 2023-01-18 18:28:56 Doctor Unassigned, No [facility] DIAGNOSIS AND [facility] TREATMENT ASSIGNMENT OF BENEFITS 2022-10-05 20:29:02 Doctor Unassigned, No [facility] Branch REFERRAL- 2022-09-09 05:01:00 Doctor Unassigned, No [facility] REQUEST/RESPONSE Name [facility] URINALYSIS 2022-01-11 18:12:00 Blaise Salas o f [facility] POCT TEST 2022-01-11 18:12:00 [facility] CT LUMBAR SPINE WO 2022-01-11 16:42:35 [facility] [place] [facility]AST [facility] CT THORACIC SPINE WO 2022-01-11 16:42:35 Blaise Salas [facility] ity [facility] CONTRAST [facility] Branch COMP. METABOLIC PANEL 2022-01-11 16:27:00 Blaise Salas [facility] ([id number]) Medical [place] CBC WITH DIFF 2022-01-11 16:27:00 Blaise Salas [place] o f [facility] ACTIVATED PARTIAL 2022-01-11 16:27:00 Blaise Salas [facility] THRMPLAS EAGLE [facility] CONSENT/REFUSAL FOR 2022-01-11 15:22:37 [facility]igned[facility] Name Medical Branch TREATMENT URINALYSIS 2021-08-19 03:07:00 Patrick Singh [facility] NOTICE OF PRIVACY 2021-08-18 23:46:31 Doctor Unassigned, No Univ ersity [facility] PRACTICES Name Medical Branch CONSENT/REFUSAL FOR 2021-08-18 23:46:18 Doctor Unassigned, No [facility] [place] DIAGNOSIS AND Name Medical [place] TREATMENT Encounters Start End Encounter Admission Attending Care Care Encounter Source Date/Time Date/Time Type Type Clinicians Facility Department ID 2023-01-18 2023-01-18 Emergency X [facility] ERT [id number] Univers 13:35:00 20:19:00 MAYCO keene [facility] 2023-01-18 2023-01-[address] [facility] [id number] Univers 13:35:00 20:19:00 Mayco MORALES [id number] ity of [facility] [id number] [facility] [id number] [place] [address] Branch 2022-11-05 2022-11-05 Ancillary Shefali Whitney [facility] 1.2.840 .114 [id number] Univers 14:30:00 15:15:00 Visit Garrett Herrera [id number] ity of [facility] [id number] [place] [id number] La dical NAL 179 [facility] 2022-11-05 2022-11-05 Outpatient R HERRERA [facility] [id number] Univers 14:30:00 14:30:00 GARRETT keene [facility] 2022 2022 Ancillary Mayco Greer [facility] 1.2.840. [id number] Univers 13:45:00 15:05:10 Visit Garrett Herrera [id number] ity of [place] [id number] [place] [id number] La dical NAL 179 [facility] 2022-10-26 2022-10-26 Outpatient R HERRERA [facility] [id number] Univers 13:45:00 15:21:35 GARRETTMARCELINO keene [facility] 2022-10-26 2022-10-26 Ancillary Sandra Clarke [facility] 1.2. [id number] Univers 13:45:00 14:30:00 Visit Garrett Herrera [id number] ity of [place] [id number] [place] [id number] La dical NAL 179 [facility] 2022-10-22 2022-10-22 Ancillary Shefali Whitney [facility] 1.2.840 .114 [id number] Univers 15:15:00 16:00:00 Visit Garrett Herrera [id number] ity of [place] [id number] [place] [id number] La dical NAL 179 [facility] 2022-10-13 2022-10-13 Outpatient R SHARON [facility] [id number] Univers 14:30:00 14:30:00 GARRETT keene [facility] 2022-10-05 2022-10-05 Ancillary Fabiana Sanderson [facility] 1 .2.840.114 [id number] Univers 15:15:00 16:22:29 Visit Garrett Herrera [id number] ity of [place] [facility] [id number] [place] [facility] [id number] La dical [facility] [address] [facility] 2022-10-05 2022-10-05 Orders Doctor [place] [id number] Univers 00:00:00 00:00:00 Only Unassigned, QIANA [id number] ity of [place] [facility] [id number] Andrea as [phone] [address] 2022-09-09 2022-09-09 Orders Doctor [place] 1.2.840.114 [id number] Univers 00:00:00 00:00:00 Only Unassigned, QIANA [id number] ity of [place] [facility] [id number] Andrea as [id number] [address] 2022-01-11 2022-01-11 Emergency X [facility] ERT [id number] Univers 10:36:00 14:53:00 BLAISE ity [facility] 2022-01-11 2022-01-11 Emergency [facility] [id number] Univers 10:36:00 14:53:00 Blaise MORALES [id number] i ty [facility] [id number] [id number] [address] 2021-08-18 2021-08-19 Emergency X [facility] ERT [id number] Univers 19:42:00 00:05:00 PATRICK gonsalesy [facility] 2021-08-18 2021-08-19 Emergency [facility] [id number] Univers 19:42:00 00:05:00 Patrick MORALES [id number] ity [facility] [id number] [place] [id number] [address] 2021-04-13 2021-04-13 Outpatient SONY Ziegler CATH [id number] [facility] 09:40:00 09:40:00 Paras 61 [facility] 2020-06-23 2020-06-23 Emergency X [facility] ERT [id number] Univers 11:08:00 11:08:00 [facility] Results Test Description Test Time Test Comments Results Result Comments Source TROPONIN I 2023-01-19 00:27:26 Test Item Value Reference Range Interpretation Comme nts TROPONIN I (test code = 4543626423) 0.001 ng/mL <=0.034 CECIL (test code = CECIL) Reference (Normal) Range (defined by the 99th percentile reference limit): <= 0.034 ng/mL Note: Cardiac troponin begins to rise 3-4 hours after the onset of ischemia. Repeat in 4-6 hours if the sample was drawn within 3-4 hours of the onset of the symptom and found normal. Diagnosis of myocardial injury is made with acute changes in cTn concentrations with at least one serial sample above the 99th percentile upper reference limit (URL), taken together with the patient's clinical presentation. Biotin has been reported to cause a negative bias, interpret results relative to patient's use of biotin. Lab Interpretation (test code = Normal 52783-5) [id number] 21:27:30 Test Item Value Reference Range Interpretation Comments TROPONIN I (test code = 0.002 ng/mL <=0.034 [id number]) CECIL (test code = CECIL) Reference (Normal) Range (defined by the 99th percentile reference limit): <= 0.034 ng/mL Note: Cardiac troponin begins to rise 3-4 hours after the onset of ischemia. Repeat in 4-6 hours if the sample was drawn within 3-4 hours of the onset of the symptom and found normal. Diagnosis of myocardial injury is made with acute changes in cTn concentrations with at least one serial sample above the 99th percentile upper reference limit (URL), taken together with the patient's clinical presentation. Biotin has been reported to cause a negative bias, interpret results relative to patient's use of biotin. Lab Interpretation Normal (test code = 99738-5) [facility] [id number] 21:25:13 Test Item Value Reference Range Interpretation Comments NT-proBNP (test code = 09829-3) 76 pg/mL <=125 Lab Interpretation (test code = Normal 25069-4) [facility] (09582)2023-01-18 21:16:32 Test Item Value Reference Range Interpretation Comments NA (test code = 136 mmol/L 135-145 1253758742) K (test code = 4.3 mmol/L 3.5-5.0 6750858330) CL (test code = 105 mmol/L 98-108 1302971878) CO2 TOTAL (test code = 26 mmol/L 23-31 1212166015) AGAP (test code = 5 2-16 8879319035) BUN (test code = 11 mg/dL 7-23 6815112799) GLUCOSE (test code = 82 mg/dL 70-110 0027867926) CREATININE (test code = 0.90 mg/dL 0.50-1.04 6323090399) TOTAL BILI (test code = 0.2 mg/dL 0.1-1.5 8459522270) CALCIUM (test code = 8.5 mg/dL 8.6-10.6 L 4042847484) T PROTEIN (test code = 6.9 g/dL 6.3-8.2 1010288232) ALBUMIN (test code = 3.8 g/dL 3.5-5.0 0953311055) ALK PHOS (test code = 107 U/L 34-122 0726685357) ALTv (test code = 28 U/L 5-35 1742-6) AST(SGOT) (test code = 32 U/L 13-40 5334670703) eGFR (test code = 66.5 mL/min/1.73m2 1594827258) CECIL (test code = CECIL) Association of [...] tests). Lab Interpretation Abnormal (test code = 67348-5) [facility] 21:15:51 Test Item Value Reference Range Interpretation Comments LIPASE (test code = 5720009603) 68 U/L 0-220 Lab Interpretation (test code = Normal 99061-4) [facility] WITH [id number] 20:55:45 Test Item Value Reference Range Interpretation Comments WBC (test code = 9.55 See_Comment [Automated 0290-2) message] The sy stem which generated this result transmitted reference range : 4.30 - 11.10 10*3/?L. The reference range was not used to interpret this result as normal/abnormal . RBC (test code = 3.62 See_Comment L [Automated 729-8) message] The sy stem which generated this result transmitted reference range : 3.93 - 5.25 10*6/?L. The reference range was not used to interpret this result as normal/abnormal . HGB (test code = 8.7 g/dL 11.6-15.0 L 718-7) HCT (test code = 28.2 % 35.7-45.2 L 4544-3) MCV (test code = 77.9 fL 80.6-95.5 L 787-2) MCH (test code = 24.0 pg 25.9-32.8 L 785-6) MCHC (test code = 30.9 g/dL 31.6-35.1 L 786-4) RDW-SD (test code = 46.9 fL 39.0-49.9 73553-8) RDW-CV (test code = 16.4 % 12.0-15.5 H 788-0) PLT (test code = 418 See_Comment H [Automated 777-3) message] The sy stem which generated this result transmitted reference range : 166 - 358 10*3/ ?L. The reference r rex was not used to interpret this result as normal/abnormal . MPV (test code = 10.2 fL 9.5-12.9 63220-6) NRBC/100 WBC (test 0.0 See_Comment [Automat ed code = 9059566824) message] The system which generated this result transmitted reference range : 0.0 - 10.0 /100 WBCs. The refer ence range was not u sed to interpret th is result as normal/abnormal . NRBC x10^3 (test code See_Comment [Auto mated = 4678429084) message] The s ystem which generated this result transmitted reference range : 10*3/?L. The reference range was not used to interpret this result as normal/abnormal . GRAN MAT (NEUT) % 60.8 % (test code = 770-8) IMM GRAN % (test code 0.40 % = 5150364134) LYMPH % (test code = 30.9 % 736-9) MONO % (test code = 5.2 % 5905-5) EOS % (test code = 1.9 % 713-8) BASO % (test code = 0.8 % 706-2) GRAN MAT x10^3(ANC) 5.80 10*3/uL 1.88-7.09 (test code = 9475039743) IMM GRAN x10^3 (test 0.04 10*3/uL 0.00-0.06 code = 6083860340) LYMPH x10^3 (test code 2.95 10*3/uL 1.32-3.29 = 731-0) MONO x10^3 (test code 0.50 10*3/uL 0.33-0.92 = 742-7) EOS x10^3 (test code = 0.18 10*3/uL 0.03-0.39 711-2) BASO x10^3 (test code 0.08 10*3/uL 0.01-0.07 H = 704-7) Lab Interpretation Abnormal (test code = 71574-0) [facility] [id number] 18:12:00 Test Item Value Reference Range Interpretation Comments POCT PREG (test code = 1605) negative On board controls acceptable with present C Line (test code = 3574) POCT PREG LOT # (test code = 3575) [id number] POCT PREG TEST DATE (test code = 3576) Lab Interpretation (test code = Normal 49480-7) [facility] CenterACTIVATED PARTIAL THRMPLAS [id number] 17:01:15 Test Item Value Reference Range Interpretation Comments APTT Patient (test See_Comment [Automat ed code = 3173-2) message] The system which generated this result transmitted reference range : 23 - 38 Seconds . The reference range was not used to interpr et this result as normal/abnormal . CECIL (test code = CECIL) The [facility] patient population mean normal value for aPTT is 30 seconds. Lab Interpretation Normal (test code = 69545-6) [facility] (94354)2022-01-11 16:59:53 Test Item Value Reference Range Interpretation Comments NA (test code = 138 mmol/L 135-145 2608832882) K (test code = 4.9 mmol/L 3.5-5 7170492316) CL (test code = 108 mmol/L 98-108 0048490764) CO2 TOTAL (test code = 25 mmol/L 23-31 9436305643) AGAP (test code = 2-16 9405745547) BUN (test code = 13 mg/dL 7-23 7895586406) GLUCOSE (test code = 100 mg/dL 70-110 5136433939) CREATININE (test code = 1.09 mg/dL 0.5-1.04 H 8841604673) TOTAL BILI (test code = 0.1 mg/dL 0.1-1.1 1329978000) CALCIUM (test code = 9.0 mg/dL 8.6-10.6 6690341054) T PROTEIN (test code = 6.4 g/dL 6.3-8.2 0777694730) ALBUMIN (test code = 3.9 g/dL 3.5-5 9522141564) ALK PHOS (test code = 119 U/L 34-122 6383256981) ALTv (test code = 23 U/L 5-35 1742-6) AST(SGOT) (test code = 24 U/L 13-40 1846823370) eGFR (test code = mL/min/1.73m2 2650130060) CECIL (test code = CECIL) Association of [...] tests). Lab Interpretation Abnormal (test code = 28748-2) [facility] WITH [id number] 16:49:15 Test Item Value Reference Range Interpretation Comments WBC (test code = See_Comment [Automated 0795-2) message] The sy stem which generated this [...] RDW-SD (test code = 45.5 fL 39-49.9 49289-0) RDW-CV (test code = 16.9 % 12-15.5 H 788-0) PLT (test code = See_Comment H [Automated 777-3) message] The sy stem which generated this result transmitted reference range : 166 - 358 10*3/ ?L. The reference r rex was not used to interpret this result as normal/abnormal . MPV (test code = 10.3 fL 9.5-12.9 58906-4) NRBC/100 WBC (test See_Comment [Automat ed code = 8529146129) message] The system which generated this result transmitted reference range : 0.0 - 10.0 /100 WBCs. The refer ence range was not u sed to interpret th is result as normal/abnormal . NRBC x10^3 (test code See_Comment [Auto mated = 2309253135) message] The s ystem which generated this result transmitted reference range : 10*3/?L. The reference range was not used to interpret this result as normal/abnormal . GRAN MAT (NEUT) % 55.9 % (test code = 770-8) IMM GRAN % (test code 0.60 % = 4845511001) LYMPH % (test code = 33.3 % 736-9) MONO % (test code = 6.9 % 5905-5) EOS % (test code = 2.6 % 713-8) BASO % (test code = 0.7 % 706-2) GRAN MAT x10^3(ANC) 4.52 10*3/uL 1.88-7.09 (test code = 3899081049) IMM GRAN x10^3 (test 0.05 10*3/uL 0-0.06 code = 3927691115) LYMPH x10^3 (test code 2.70 10*3/uL 1.32-3.29 = 731-0) MONO x10^3 (test code 0.56 10*3/uL 0.33-0.92 = 742-7) EOS x10^3 (test code = 0.21 10*3/uL 0.03-0.39 711-2) BASO x10^3 (test code 0.06 10*3/uL 0.01-0.07 = 704-7) Lab Interpretation Abnormal (test code = 02101-9) [facility]- XR CHEST 1 [id number] 10:53:00 [facility] 1975 Sex: F Name:APRIL WILSON [facility] : 1975 Age/S: 45 / F [address] [facility] [place] Unit #: [id number] Loc:[place] [address] Phys: Paras Puri MD Acct: [id number] Dis Date: Status: [facility] PHONE #: [phone] Exam Date: 04/13/2021 1035 FAX #: Reason: PRE PROCEDURE EXAMS: CPT: [id number] XR CHEST 1 V 66232 Fluoro Time: DAP (Gy m2): Air Kerma (mGy): LOCATION: T18 EXAM: CHEST 1 VIEW INDICATION: , PRE OR OCEDURE COMPARISON: None. TECHNIQUE: AP chest radiograph. FINDINGS: Lungs are clear bilaterally without effusion. Heart is normal in size. Bones and peripheral soft tissues are unremarkable. IMPRESSION: Lungs are clear. No acute abnormality. at 1053 Reported and signed by: Evan Willis M.D. CC: Paras Puri MD; Dianne Stewart MD PAGE 1 Signed Report Name: APRIL WILSON [place] : 1975 Age/S: 45 / F [address] [address] [place] Unit#: [id number] Loc: [place] [address] Phys: Paras Puri MD Acct: [id number] Dis Date: Status: REG [facility] PHONE #: [phone] Exam Date: 04/13/2021 1035 FAX #: Reason: PRE PROCEDURE EXAMS: CPT: [id number] XR CHEST 1 V 70970 Fluoro Time: DAP (Gy m2): Air Kerma (mGy): (Continued) Technologist: Afia RT (R)(CT) Trnscb Date/Time: 04/13/2021 (1053) t.SDR.JP19 Orig Print D/T: S: 04/13/2021 (0513) PAGE 2 Signed Report COMPREHENSIVE METABOLIC [id number] 10:51:00 Test Item Value Reference Range Interpretation [...] Unit/L 45-117 H code = ALKP) PROTHROMBIN [id number] 10:42:00 Test Item Value Reference Range Interpretation Comments PT PATIENT (test 12.2 SECONDS 9.3-12.9 N code = PTP) INTERNATIONAL NORMAL 1.09 INR Unit 0.8-1.2 N TARG ET INR BY RATIO (test code = INDICATIO [...] (to prevent recurrent infar ct). THROMBOPLASTIN TIME [id number] 10:42:00 Test Item Value Reference Range Interpretation Comments THROMBOPLASTIN TIME PARTIAL 41.5 SECONDS 26-35 H (test code = PTT) CBC W/AUTO [id number] 10:34:00 Test Item Value Reference Range Interpretation [...] (test code NO DIFF/SCN CRITERIA = MDIFF) Notes Date/Time Note Provider Source 2023-01-18 20:17:00 3101-55-40H64:17:00Formatting of Christina Yuen ot RN [facility] this note might be different from the original. Awake, alert oriented X4, respiratory even and unlabored,skin w/d color appropriate for race, moves all ext well, pt encouraged to follow up with pcp and or return as neededPt given printed and verbal discharge instructions regarding Bronchitis, , Dyspnea, Chest pain, Edema , patient verbralized understanding and signature obtained, patient denies any other concerns. Prescriptions providedDiscussed antibiotic therapy and to take until all completed unless adverse reaction occurs - if occurs, discontinue medication and follow up with pcp/seek medical attentionAdvised to seek medical attention for new/prolonged/worsening of symptoms, No adverse reaction to meds given in ER noted upon dischargePt [facility] 00748-8Tpbzylfez department XwjkQZ2672-32-31D49:54:42Emergency department NoteTXT1.2.840.265643.1.13.104.2.7 .2.123737|[id number] for patient [id number] J Hoot RNUT[address] [id number] 02HAQAMXQLFNDKMXBHFOBIDA6254-77-18 T22:54:421.2.840.702732.1.72.3.15| 1.2.840.490743.1.13.104.2.7.2.7278 [id number] 2023-01-18 13:30:21 0629-34-80F46:30:21Formatting of Zaina cope RN [facility] this note might be different from the original.Patient reports that she feels like her legs are swelling since yesterday. Patient also reports that she feels like she can't breathe right. Patient coughing at triage and states that the cough started today. 32884-6Lbklqhssb department Triage scnoIU2207-29-45Q80:33:02Emelocated within [facility] department Triage noteTXT1.2.840.284186.1.13.104.2.7 .2.817345|[id number] for patient epxj64916-1Zvvbsldoh department [id number] M Hayes RNUT[address] EifaTycptxwzdBgahrfagsINTJ76526300 73OTUKOJCVWIZTCJFOGSTXEI0630-21-79 T13:33:021.2.840.544319.1.72.3.15| 1.2.840.234229.1.13.104.2.7.2.7278 [id number] 2023-01-18 13:28:00 4632-03-69E35:28:00Associated [facility] Order(s): EKG-12 Lead ROUTINE ONCEPre-Procedure Diagnose(s): Dyspnea, unspecified typePost-Procedure Diagnose(s): Dyspnea, unspecified type [facility] Emergency Department NotePatient Name: April Hoyoste of : 1975 47 year old femaleTreatment Room: [place] [address]Medical Record Number: [id number] Care Physician: Kyleigh Hanna [facility]Patient Escorted by: Family [5]Mode of Arrival: Personal means [1]EMS Treatment Prior to ED Arrival: Travel and Exposure Screening:SymptomsDoes patient have any of these symptoms?: (not recorded)Exposure ScreeningHas patient had contact with someone with a communicable disease in the last month?: (not recorded)Diseases exposed to:: (not recorded)Is Patient ?: (not recorded)Exposure Date: (not recorded)Chief Complaint:Chief Complaint Patient presents with Edema Shortness of Breath History of Present Illness:Onset yesterday with non-focal chest pressure, constant with no aggravating or relieving factors. Concurrent dyspnea, no aggravating or relieving factors. (+) wheezing. (+) cough, productive. No fever. No rhinorrhea, sore throat. Mild edema to bilateral hands, feet this AM. No nausea, vomiting, diarrhea. No black stools. Episodic blood on paper with strained bowel movement. No dysuria, anuria. (+) smoker.History provided by: PatientPast Medical History/Immunizations:History reviewed. No pertinent past medical history.Tetanus received in last 5 years: Unknown Allergies:Allergies Allergen Reactions Benadryl Allergy Decongestant Swelling Penicillin Unknown - See comments Was told as a child Past Social History:Substance & Sexual Activity No substance use or sexual activity history on file. Past Surgical History:History reviewed. No pertinent surgical history.Review of Systems: Review of Systems Constitutional: Negative. HENT: Negative. Eyes: Negative. Respiratory: Positive for cough, shortness of breath and wheezing. Cardiovascular: Positive for chest pain and leg swelling. Gastrointestinal: Negative. Genitourinary: Negative. Musculoskeletal: Negative. Skin: Negative. Neurological: Negative. Psychiatric/Behavioral: Negative. Physical Exam: ED Triage Vitals [01/18/23 1333] Weight 110.2 kg (243 lb) Actual or estimated Estimated by patient/family report Height 1.676 m (5' 6") BP (!) 170/100 Pulse 75 Resp 22 Temp 37.2 ?C (99 ?F) Temp source Oral SpO2 98 % Measured on Room air Physical ExamVitals and nursing note reviewed. Constitutional: General: She is not in acute distress. Appearance: Normal appearance. She is not ill-appearing, toxic-appearing or diaphoretic. HENT: Head: Normocephalic and atraumatic. Right Ear: External ear normal. Left Ear: External ear normal. Nose: Nose normal. Mouth/Throat: Mouth: Mucous membranes are moist. Eyes: Extraocular Movements: Extraocular movements intact. Conjunctiva/sclera: Conjunctivae normal. Cardiovascular: Rate and Rhythm: Normal rate and regular rhythm. Pulmonary: Effort: Pulmonary effort is normal. No respiratory distress. Breath sounds: Wheezing (subtle end expiratory wheeze) present. No rhonchi or rales. Abdominal: General: There is no distension. Palpations: Abdomen is soft. Tenderness: There is no abdominal tenderness. Musculoskeletal: General: Normal range of motion. Cervical back: Normal range of motion. Skin: General: Skin is warm and dry. Neurological: General: No focal deficit present. Mental Status: She is alert. Psychiatric: Mood and Affect: Mood normal. Behavior: Behavior normal. Thought Content: Thought content normal. Judgment: Judgment normal. Radiology:XR CHEST 2 VW Final Result ORDERING PROVIDER: MAYCO DEL RIO HISTORY: DYSPNEA, COUGH TECHNIQUE: PA and lateral views of the chest COMPARISON: None FINDINGS: The lungs are adequately aerated. No focal consolidation, pleural effusion, or pneumothorax. The cardiac silhouette and pulmonary vasculature are within normal limits. The osseous structures are unremarkable. IMPRESSION No radiographic evidence of acute cardiopulmonary disease. RL: 4231 End of report. Lab Results:Lab Results CBC WITH DIFF - Abnormal Result Value Ref Range WBC 9.55 4.30 - 11.10 10*3/?L RBC 3.62 (*) 3.93 - 5.25 10*6/?L HGB 8.7 (*) 11.6 - 15.0 g/dL HCT 28.2 (*) 35.7 - 45.2 % MCV 77.9 (*) 80.6 - 95.5 fL MCH 24.0 (*) 25.9 - 32.8 pg MCHC 30.9 (*) 31.6 - 35.1 g/dL RDW-SD 46.9 39.0 - 49.9 fL RDW-CV 16.4 (*) 12.0 - 15.5 % PLT 418 (*) 166 - 358 10*3/?L MPV 10.2 9.5 - 12.9 fL NRBC/100 WBC 0.0 0.0 - 10.0 /100 WBCs NRBC x10^3 <0.01 10*3/?L GRAN MAT (NEUT) % 60.8 % IMM GRAN % 0.40 % LYMPH % 30.9 % MONO % 5.2 % EOS % 1.9 % BASO % 0.8 % GRAN MAT x10^3(ANC) 5.80 1.88 - 7.09 10*3/uL IMM GRAN x10^3 0.04 0.00 - 0.06 10*3/uL LYMPH x10^3 2.95 1.32 - 3.29 10*3/uL MONO x10^3 0.50 0.33 - 0.92 10*3/uL EOS x10^3 0.18 0.03 - 0.39 10*3/uL BASO x10^3 0.08 (*) 0.01 - 0.07 10*3/uL COMP. METABOLIC PANEL (33610) - Abnormal NA 136 135 - 145 mmol/L K 4.3 3.5 - 5.0 mmol/L CL 105 98 - 108 mmol/L CO2 TOTAL 26 23 - 31 mmol/L AGAP 5 2 - 16 BUN 11 7 - 23 mg/dL GLUCOSE 82 70 - 110 mg/dL CREATININE 0.90 0.50 - 1.04 mg/dL TOTAL BILI 0.2 0.1 - 1.1 mg/dL CALCIUM 8.5 (*) 8.6 - 10.6 mg/dL T PROTEIN 6.9 6.3 - 8.2 g/dL ALBUMIN 3.8 3.5 - 5.0 g/dL ALK PHOS 107 34 - 122 U/L ALTv 28 5 - 35 U/L AST(SGOT) 32 13 - 40 U/L eGFR 66.5 mL/min/1.73m2 COVID-19 (ID NOW RAPID TESTING) - Normal SARS-CoV-2 Rapid ID NOW Not Detected Not Detected LIPASE - Normal LIPASE 68 0 - 220 U/L TROPONIN I - Normal TROPONIN I 0.002 <=0.034 ng/mL N-TERMINAL PRO-BNP - Normal NT-proBNP 76 <=125 pg/mL TROPONIN I - Normal TROPONIN I 0.001 <=0.034 ng/mL THYROID STIMULATING HORMONE EKG:If EKG completed, see Procedure Note. Orders and Treatments:Orders Placed This Encounter Procedures XR CHEST 2 VW COVID-19 (ID NOW TESTING) CBC WITH DIFF COMP. METABOLIC PANEL (56525) LIPASE TROPONIN I N-TERMINAL PRO-BNP THYROID STIMULATING HORMONE LAB ONLY COVID INTERPRETATION TROPONIN I Orders Placed This Encounter Medications ipratropium-albuteroL (DUONEB) 0.5 mg-3 mg(2.5 mg base)/3 mL nebulizer solution 3 mL predniSONE (DELTASONE) tablet 40 mg predniSONE 20 mg tablet albuterol 90 mcg/actuation inhaler benzonatate 200 mg capsule azithromycin 250 mg tablet furosemide 20 mg tablet furosemide (LASIX) tablet 20 mg azithromycin (ZITHROMAX) tablet 500 mg First Provider Eval:ED Events Date/Time Event User Comments 01/18/231335 Medical Screening Begins MAYCO DEL RIO MD -- 01/18/231335 First Provider Evaluation MAYCO DEL RIO MD -- No notes of EC Admission Criteria type on file.ED COURSEED Course as of 01/18/231942e Jan 18, 2023 1807 Reassess. Symptoms improved. Resting comfortably [RK] ED Course User Index[RK] Mayco Del Rio MD Diagnosis/Impression as of 01/18/231942 Dyspnea, unspecified type Chest pain, unspecified type Bronchitis Edema, unspecified type Procedures: EKG-12 Lead ROUTINE ONCEDate/Time: 01/18/2023 7:41 PMPerformed by: Mayco Del Rio MDAuthorized by: Mayco Del Rio MD ECG reviewed by ED Physician in the absence of a hanger: yes Previous ECG: Previous ECG: UnavailableInterpretation: Interpretation: non-specific Rate: ECG rate: 70 ECG rate assessment: normal Rhythm: Rhythm: sinus rhythm Ectopy: Ectopy: none QRS: QRS axis: Normal (65)ST segments: ST segments: Non-specificT waves: T waves: non-specific Comments: Qtc 453MDM:Medical Decision MakingPrimary impression: bronchitisSecondary impression: cough, chest painDifferential Diagnoses, including but not limited to: acute coronary event CHF, COVID, anemia, electrolyte/glucose abnlProblems Addressed:Bronchitis: acute illness or injuryChest pain, unspecified type: acute illness or injuryDyspnea, unspecified type: acute illness or injuryEdema, unspecified type: acute illness or injuryAmount and/or Complexity of Data ReviewedIndependent Historian: Details: selfLabs: ordered. Decision-making details documented in ED Course.Radiology: ordered. Decision-making details documented in ED Course.ECG/medicine tests: ordered and independent interpretation performed. Decision-making details documented in ED Course.Discussion of management or test interpretation with external provider(s): N/aRiskPrescription drug management.Risk Details: Unremarkable OBS in ED. Findings and plan discussed with patient. HEART Score 3, low likelihood of acute coronary event. Serial troponin negative. Chest, respiratory symptoms most consistent with bronchitis. First doses in ED. Symptoms improved. No findings that require acute hospitalization today. Flowsheet Documentation: Scoring Tools: No data recordedHEART Score: 3 Disposition/Condition:ED Disposition ED Disposition Disch - Home Condition Stable Comment -- Discharge Medications:Patient's Medications START taking these medications ALBUTEROL 90 MCG/ACTUATION INHALER Inhale 2 Puffs every 4 (four) hours as needed for Wheezing or Shortness of Breath. AZITHROMYCIN 250 MG TABLET Take 1 tablet by mouth SEE-INSTRUCTIONS. Take 500 mg day 1, then 250 mg days 2 to 5. BENZONATATE 200 MG CAPSULE Take 1 capsule by mouth 3 (three) times daily as needed for Cough. FUROSEMIDE 20 MG TABLET Take 1 tablet by mouth every morning. PREDNISONE 20 MG TABLET Take 2 tablets by mouth in the morning for 7 days. CONTINUE taking these medications which have NOT CHANGED CIPROFLOXACIN HCL 500 MG TABLET Take 1 tablet by mouth in the morning and 1 tablet in the evening. CYCLOBENZAPRINE 10 MG TABLET Take 1 tablet by mouth 3 (three) times daily as needed for Muscle Spasms. GABAPENTIN 300 MG CAPSULE Take 1 capsule by mouth 3 (three) times daily. NAPROXEN (NAPROSYN) 500 MG TABLET Take 1 tablet by mouth 2 (two) times daily with meals. PREDNISONE 20 MG TABLET TAKE ONE TABLET BY MOUTH DAILY TRAMADOL 50 MG TABLET Take 1 tablet by mouth every 6 (six) hours as needed for Pain (scale 7-10). Indications: acute pain START taking Modified Medications as Prescribed No medications on file STOP taking these medications No medications on file Follow-up:PCPElectronically signed by: Mayco Del Rio MD01/18/231942 76799-8Jzfmjylrx Emergency department XkgbJG6725-39-42F58:43:34Physician Emergency department NoteTXT1.2.840.495447.1.13.104.2.7 .2.570353|[id number] for patient xprx65868-7Ktmibceze department NoteLNUT[address] OnywNqjiefraeYtszndxobQPTY63574995 78DVGXEKVXXDCQLUGSUGFBPV4856-01-21 T19:43:341.2.840.066191.1.72.3.15| 1.2.840.321749.1.13.104.2.7.2.7278 [id number] 2021-04-13 12:57:00 [id number]:57:00 [facility] ([facility])DT Operative NoteREPORT#:[id number] REPORT STATUS: SignedDATE:04/13/21 TIME:1257 PATIENT: APRIL WILSON UNIT #: [id number]#: [id number] ROOM/BED:: 73 AGE: 45 SEX: F ATTEND: Paras Puri [facility] AUTHOR: Paras Puri MD * ALL edits or amendments must be made on the electronic/computer document * Operative Report Operative NoteNote:Procedure Date: 04/13/2021 Procedure:Diagnostic cardiac catheterization, left ventriculogram, and selective coronary angiograms Indication:Progressive angina failed optimized medical management Procedure details:Following informed consent and detailed discussion of procedural risks and benefits with the patient and family that preceded [facility] then followed by adequate moderate sedation induction and local anesthesia administration, diagnostic cardiac catheterization with selective coronary angiograms and left ventriculogram performed via the right radial arterial approach through a 6 Fr sheath using an 5 Fr Jackies and AL1 catheters were successfully completed with no complication and minimal blood loss (EBL < 5ml) afterwhich the catheter and the arterial sheah were removed with satisfactory hemostasis achieved using radial arm band external compressing device before the patient, who tolerated well the procedure, was discharged fromthe [facility] in stable condition. Results: I. Diagnostic angiography 1. No angiographically significant epicardial coronary disease in a right dominant coronary circulation2. LMCA -- normal angiographically3. LAD -- 30% ostial narrowing4. LCX -- 30% ostial narrowing5. Ramus -- 30% ostial narrowing6. RCA -- scattered 30-40% plaques throughout. II. Left ventriculography Left ventriculogram demonstrated preserved left ventricular systolic function. Estimated LVEF was 60%. LVEDP was 16-18 mmHg. The results were presented and discussed in details with the patient and family. All questions and concerns were addressed satisfactorily at 1427 RPT #: [id number] OF REPORT OPOperative [id number] for patient [id number]:[id number] :55 2021-04-13 10:31:00 [id number] [facility] 3-0002 [facility] [address] [place] [address] PATIENT NAME: APRIL WILSON ADMIT DATE: 04/13/21ACCOUNT NO: [id number] ROOM NO: AGE: 45 REPORT TYPE: eELECTROCARDIOGRAM SEX: F ADMITTING PHYSICIAN: ATTENDING PHYSICIAN: Paras Puri MD Order:[id number] Reason : PRE OP Test Date/Time Stamp:TueApr 13 2021 10:31:39Blood Pressure : / mmHGVent. Rate : 081 BPM Atrial Rate : 081 BPM P-R Int : 136 ms QRS Dur : 084 ms QT Int : 388 ms P-R-T Axes : 060 083 071 degrees QTc Int : 450 ms Normal sinus rhythmNormal ECGNo previous ECGs availableConfirmed by JESÚS BLACKWELL, MANDY ([id number]) on 04/16/2021 12:41:39 PM Referred By: Paras Puri Confirmed by:MANDY ESPINOSA MD at 1241 PATIENT NAME: APRIL WILSON .C [id number] for patient [id number]:28 :15
[2023-04-09] MEDS ORDERED: Magnesium Sulfate 2gm IVPB 2 G/50 ML BAG IV ONE (18:03)
[2023-04-09] MEDS ORDERED: propofoL 1,000 MG/100 ML VIAL IV ONE ×2 (18:04→21:13)
[2023-04-09] MEDS ORDERED: NA CHLORIDE 0.9% 1,000 ML ONE (18:04)
[2023-04-09] MEDS ORDERED: RSI MEDICATION KIT IV ONE ×2 (18:04→18:16)
[2023-04-09] MEDS ORDERED: KETAMINE HCL IN 0.9 % NACL 50 MG/5 ML SYRINGE IV ONE ×3 (18:12→18:32)
--- NOTE | 2023-04-09 19:24 | RAD REPORT ---
EXAM DESCRIPTION: RAD - Chest Single View - 04/09/2023 7:17 pm CLINICAL HISTORY: Dr. 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 COMPARISON: Chest Single View dated 07/01/2022; Chest Single View dated 05/20/2021; Chest Single View d ated 02/28/2021; Chest Single View dated 10/30/2019 FINDINGS: Portable technique limits examination quality. Tip of the endotracheal tube is at the level of the clavicular heads, approximately 1 cm above the le olive of the aortic arch. Right-sided venous catheter has tip in the SVC enteric tube descends into sto mach. Mild bilateral pulmonary opacities are noted. The heart is normal in size.
[2023-04-09 19:36] LABS: Protime INR 1.03
[2023-04-09 19:44] LABS: Albumin 2.9 g/dL (3.4-5.0); Bilirubin Total 0.2 mg/dL (0.2-1.0); Potassium 3.9 mEq/L (3.5-5.1); Protein, Total 6.8 g/dL (6.4-8.2)
[2023-04-09 19:50] LABS: Absolute Lymphocytes (CBC) 1.3 K/uL (0.7-4.9); Hematocrit 26.5 % (36.0-45.0); Lymphocytes % 7.4 % (15.3-44.8); MCV 72.5 fL (80-100); MPV 8.4 fL (7.6-11.3); Platelets 433 thou/uL (152-406); RBC Red Blood Cell Count 3.66 M/uL (3.86-4.86)
[2023-04-09] MEDS ORDERED: NA CHLORIDE 0.9% 50 ML ONE (20:12)
[2023-04-09] MEDS ORDERED: FENTANYL CITR 100 MCG/2 ML ONE (20:12)
[2023-04-09 20:35] LABS: Specific Gravity 1.017 (1.005-1.030); Urine Bacteria <20 /HPF (<20); Urine Bilirubin NEGATIVE (Negative); Urine Blood Negative (Negative); Urine Clarity Extremely Turbid (Clear); Urine Color Light-Yellow (Yellow); Urine Crystals Unidentified Few /HPF (None Seen); Urine Glucose NEGATIVE (Negative); Urine Mucus Slight /HPF (None Seen); Urine Protein NEGATIVE (Negative); Urine RBC <5 /HPF (None Seen); Urine Urobilinogen Normal (Normal); Urine WBC Clump Rare /HPF (None Seen); Urine pH 5.5 (5.0-7.0)
[2023-04-09 20:50] LABS: Barbiturates NEGATIVE (NEGATIVE); Benzodiazepines NEGATIVE (NEGATIVE); Cocaine NEGATIVE (NEGATIVE); METHAMPHETAM NEGATIVE (NEGATIVE); Methadone NEGATIVE (NEGATIVE); Opiates NEGATIVE (NEGATIVE); Phencyclidine NEGATIVE (NEGATIVE); THC Cannibis NEGATIVE (NEGATIVE)
[2023-04-09] MEDS ORDERED: CEFEPIME 2 GM VIAL ONE (21:12)
[2023-04-09] MEDS ORDERED: NA CHLORIDE 0.9% 100 ML ONE (21:13)
[2023-04-09] MEDS ORDERED: VANCOMYCIN 1 GM/VIAL ONE (21:13)
[2023-04-09] MEDS ORDERED: NA CHLORIDE 0.9% 250 ML ONE (21:13)
[2023-04-09] MEDS ORDERED: NA CHLORIDE 0.9% 2,000 ML ONE (21:13)
[2023-04-09 21:17] LABS: Platelet Estimate ADEQ; White Blood Cell Scan OK (OK)
[2023-04-09 21:18] LABS: Blood Morphology Comment NOT SEEN (NOT SEEN)
--- NOTE | 2023-04-09 22:20 | RAD REPORT ---
EXAM DESCRIPTION: CT - Chest For Pe Angio - 04/09/2023 10:07 pm CLINICAL HISTORY: Chest pain. respiratory failure COMPARISON: Chest For Pe Angio dated 10/30/2019 TECHNIQUE: CT angiogram of the pulmonary arteries was performed with MIP. All CT scans are performed using dose optimization technique as appropriate and may include automated exposure control or mA/KV adjustment according to patient size. FINDINGS: No evidence of pulmonary thromboembolism. No acute aortic finding demonstrated. ET tube has its tip above the farideh. Enteric tube descends into the stomach. Moderate atelectasis is seen in both posteromedial lung bases. Ground-glass opacities are present bilaterally likely represe nting reactive airway disease. No significant pericardial or pleural fluid. No concerning bony finding. IMPRESSION: No evidence of pulmonary thromboembolism. Distal branches are somewhat suboptimally eval uated due to respiratory motion artifact. Ground-glass opacities, moderate in severity, bilaterally likely related to reactive airway disease. Moderate opacities in both medial posterior lung bases probably represent atelectasis.
[2023-04-09 22:58] LABS: SARS-COV-2 RT PCR NEGATIVE (NEGATIVE)
[2023-04-09 22:59] LABS: Troponin High Sensitivity 14.4 pg/mL (<58.9)
--- NOTE | 2023-04-09 23:08 | ER ---
Nurse's Notes [facility] Name: April Ford Age: 47 yrs Sex: Female : 1975 Arrival Date: 04/09/2023 Time: 17:51 Bed 3 Private MD: Diagnosis: Acute respiratory failure with hypoxia;Moderate persistent asthma with status asthmaticus Presentation: 04/09 17:40 Chief complaint: EMS states: EMS called for asthma attack, pt stable on scene w/ room ph air Spo2 90%, neb treatment given, pt then began to worse w/ wheezing respirations and severe difficulty breathing, upon arrival pt tachypneic w/ shallow respirations, actively vomiting, coughing. Ebola Screen: No symptoms or risks identified at this time. Initial Sepsis Screen: Does the patient meet any 2 criteria? RR > 20 per min. HR > 90 bpm. Risk Assessment: Do you want to hurt yourself or someone else? Patient reports no desire to harm self or others. Onset of symptoms was April 09, 2023. 17:40 Method Of Arrival: EMS: [facility] ph 17:40 Acuity: BALDEMAR 1 ph Triage Assessment: 17:48 General: Appears distressed, uncomfortable, Behavior is anxious, crying. Neuro: Level ph of Consciousness is awake, alert, obeys commands, Oriented to person, place, time, situation. Respiratory: Airway is compromised Trachea midline Respiratory effort is labored, gasping, shallow, Respiratory pattern is tachypnea Breath sounds are diminished bilaterally. Breath sounds with wheezes bilaterally. GI: Pt is actively vomiting. Historical: - Allergies: 19:08 Benadryl; kc6 19:08 PENICILLINS; kc6 - PMHx: 19:08 Anxiety; chronic back pain; Migraines; Panic Attacks; Asthma; Heart block; Diabetes kc6 mellitus; - PSHx: 19:08 Ankle-Left; Ligation of fallopian tube; kc6 - Immunization history:: Adult Immunizations unknown. - Social history:: Smoking status: Patient reports the use of cigarette tobacco products. Screenin:45 [facility] ED Fall Risk Assessment (Adult) History of falling in the last 3 months, kc6 including since admission No falls in past 3 months (0 pts) Confusion or Disorientation No (0 pts) Intoxicated or Sedated No (0 pts) Impaired Gait No (0 pts) Mobility Assist Device Used No (0 pt) Altered Elimination No (0 pt) Score/Fall Risk Level 0 - 2 = Low Risk. Abuse screen: Denies threats or abuse. Denies injuries from another. Nutritional screening: No deficits noted. Tuberculosis screening: No symptoms or risk factors identified. Assessment: 17:45 Reassessment: Dr Avalos at bedside for intubation. ph 19:12 Reassessment: eldest daughter germania [phone] ... youngest daughter marcelino narvaez [phone]. 19:30 General: bilateral upper extremity wrist restraints applied per order. Musculoskeletal:.km8 19:30 General: Appears in no apparent distress. Behavior is unresponsive. km8 19:30 Pain: Unable to use pain scale. Patient is intubated. Neuro: [facility] Agitation-Sedation Scale (RASS): -4 Deep sedation Level of Consciousness is sedated. Cardiovascular: Capillary refill < 3 seconds Patient's skin is warm and dry. Rhythm is regular. Respiratory: Airway is patent intubated Respiratory effort is even, Respiratory pattern is regular, Ventilator assessment: ET Tube: 7.0 22 at the lip Ventilator Mode: Assist Control (AC) Tidal Volume: 700 Respiratory Rate: 18 FiO2: 100%. Pressure Support: 20 PEEP: 5 HOB > 30 degrees. Suction provided. GI: Oral gastric tube in place, to suction. Site clean. : Castillo in place to gravity drainage. EENT: No deficits noted. Derm: Skin is intact, is healthy with good turgor, Skin is dry, Skin is pink, warm \T\ dry. normal, Skin temperature is warm. Musculoskeletal: Capillary refill < 3 seconds, in bilateral fingers. Range of motion: intact in all extremities. Vital Signs: 17:40 BP 90 / 74; Pulse 145; Resp 20; Pulse Ox 100% on Nebulizer Mask; Weight 100 kg; ph 18:41 BP 142 / 101; Pulse 92; Resp 17 A; Pulse Ox 100% on ETT vent; km8 19:15 BP 136 / 53; Pulse 89; Resp 16; Pulse Ox 100% on ETT vent; km8 19:30 BP 130 / 66; Pulse 91; Resp 18; Pulse Ox 100% on ETT vent; km8 19:45 BP 193 / 93; Pulse 114; Resp 18 A; Pulse Ox 100% on ETT vent; km8 20:00 BP 143 / 46; Pulse 84; Resp 18 A; Pulse Ox 100% on ETT vent; km8 20:15 BP 132 / 50; Pulse 87; Resp 18 A; Pulse Ox 95% on ETT vent; km8 20:30 BP 138 / 44; Pulse 84; Resp 16 S; Pulse Ox 95% on ETT vent; km8 20:45 BP 124 / 59; Pulse 86; Resp 16 A; Pulse Ox 97% on ETT vent; km8 21:00 BP 120 / 60; Pulse 83; Resp 16 A; Pulse Ox 97% on ETT vent; 8 21:15 BP 142 / 62; Pulse 94; Resp 16 A; Pulse Ox 97% on ETT vent; km8 21:30 BP 126 / 56; Pulse 84; Resp 16 A; Pulse Ox 96% on ETT vent; 8 21:45 BP 133 / 67; Pulse 83; Resp 16 A; Pulse Ox 100% on ETT vent; 8 22:00 BP 121 / 55; Pulse 79; Resp 13 A; Pulse Ox 100% on ETT vent; 8 22:15 BP 113 / 51; Pulse 80; Resp 16 A; Pulse Ox 99% on ETT vent; 8 22:30 BP 117 / 54; Pulse 78; Resp 15 A; Pulse Ox 99% on ETT vent; km8 22:45 BP 115 / 57; Pulse 77; Resp 16 A; Pulse Ox 98% on ETT vent; 8 23:00 BP 118 / 57; Pulse 77; Resp 16 A; Pulse Ox 98% on ETT vent; 8 23:15 BP 124 / 58; Pulse 76; Resp 15 A; Pulse Ox 98% on ETT vent; 8 23:30 BP 130 / 61; Pulse 75; Resp 15 A; Pulse Ox 99% on ETT vent; km8 23:45 BP 139 / 69; Pulse 77; Resp 14 A; Pulse Ox 100% on ETT vent; 8 ED Course: 17:50 Inserted saline lock: 18 gauge in right antecubital area, using aseptic technique. ph Maintain EMS IV. Dressing intact. Good blood return noted. Site clean \T\ dry. Gauge \T\ site: 20G LAC. 17:59 Assisted provider with intubation using 7.0 mm ETT via oral route. ET tube secured at ph 22cm at the Set up intubation tray. Intubated by Montse Avalos MD Placement verified by CO2 detector w/ + color change, CXR. 18:00 Patient arrived in ED. ds4 18:01 Montse Avalos MD is Attending Physician. kb 18:09 NGT: inserted 16 Fr. other via oral route verified return of gastric contents, ph Placement verified by X-ray, to intermittent suction. Returned gastric contents. 18:45 Assisted provider with central line placement. Set up central line tray. Triple lumen kc6 line placed in right internal jugular. Line placed by Montse Avalos MD Placement verified by CXR, blood return, Dressed with 4X4s, Tape, Tegaderm, Blood was collected. Patient tolerated well. Before procedure, did Practitioner(s) obtain informed consent? Yes. Patient \T\ family education about procedure, CLABSI prevention and S/S of infection? Yes. Time-out/Briefing performed prior to start of procedure? Yes. Was handwashing/sanitizing done immediately prior to procedure? Yes. Was patient positioned to in a way to prevent air embolism? Yes. Was procedure site sterilized? Yes, with Was the site allowed to dry? Yes. Was local anesthetic and/or sedation utilized? Yes. During the procedure, did the Practitioner(s) maintain a sterile field? Yes. Were unused ports clamped during insertion? Yes. Was blood aspirated from each lumen? Yes. 18:45 Patient has correct armband on for positive identification. Placed in gown. Bed in low kc6 position. Call light in reach. Side rails up X2. Client placed on continuous cardiac and pulse oximetry monitoring. NIBP monitoring applied. media monitor on. 18:52 Arpita Carter, RN is Primary Nurse. ph 19:00 Arm band placed on right wrist. km8 19:13 Attending Physician role handed off by Montse Avaols MD sp4 19:13 Davin Rasheed MD is Attending Physician. sp4 19:14 Triage completed. ph 19:19 Chest Single View In Process Unspecified. EDMS 19:30 Castillo cath inserted, using sterile technique, 16 Fr., by export agent, balloon inflated, to km8 gravity drainage, urine specimen collected. Patient tolerated. 19:30 Suctioned orally - moderate amount clear sputum. Assist ventilation with ventilator. km8 19:42 Warm blanket given. km8 22:09 CT Chest For PE Angio In Process Unspecified. EDMS 22:17 Initiated transfer with Mary at [facility]. rv1 22:[address] Jacob to [facility] Rm 843. rv1 04/10 00:00 Patient transferred, IV remains in place. km8 00:00 Provided Education on: transfer process. km8 Administered Medications: 04/09 07:50 Drug: Succinylcholine IVP 120 mg IVP once Route: IVP; Site: right antecubital; ph 19:00 Follow up: Response: No adverse reaction 8 08:00 Drug: Ketamine IVP 100 mg IVP once Route: IVP; Site: right antecubital; ph 19:00 Follow up: Response: No adverse reaction km8 17:45 Drug: Magnesium Sulfate IVPB 2 grams IVPB once over 2 hrs Route: IVPB; Infused Over: 2 ph hrs; Site: left antecubital; 19:00 Follow up: IV Status: Completed infusion 8 17:50 Drug: Etomidate IVP 20 mg IVP once Route: IVP; Site: right antecubital; ph 19:00 Follow up: Response: No adverse reaction 8 17:55 Drug: Succinylcholine IVP 80 mg IVP once Route: IVP; Site: right antecubital; ph 19:00 Follow up: Response: No adverse reaction 8 17:55 Drug: Etomidate IVP 20 mg IVP once Route: IVP; Site: right antecubital; ph 19:00 Follow up: Response: No adverse reaction 8 18:13 Drug: Ketamine IVP 100 mg IVP once Route: IVP; Site: right antecubital; ph 19:00 Follow up: Response: No adverse reaction 8 18:28 Drug: Propofol IVP 60 mg IVP once; Document RASS score. Route: IVP; Site: right ph antecubital; 19:00 Follow up: Response: No adverse reaction 8 18:28 Drug: Propofol IVP 0.5 mg/kg IVP once; Document RASS score. Route: IVP; Site: right ph antecubital; 19:00 Follow up: Response: No adverse reaction 8 18:35 Drug: Propofol IVP 80 mg IVP once; Document RASS score. Route: IVP; Site: right ph antecubital; 19:00 Follow up: Response: No adverse reaction [facility] 19:54 Drug: Propofol IV 5 mcg/kg/min IV at calculated rate See Administration Instructions; jb4 Standard concentration 1000 mg / 100 mL; Recommended max rate 50 mcg/kg/min; Titrate 2 mcg/kg/min every 5 minutes to achieve goal (see titration policy); Goal parameter RASS score 0 to -2 {Note: Started by day shift. 2 100mg bolus given, Provider notified, titrated to 35mcg/kg/min, instructed to continue giving 100mg bolus as needed to maintain sedation..} Route: IV; Rate: calculated rate; Site: right antecubital; 21:26 Follow up: Rate change 40 mcg/kg/min [facility] 23:50 Follow up: Rate change 60 mcg/kg/min [facility] 04/10 00:10 Follow up: IV Status: Infusion continued upon transfer [facility] 04/09 20:13 Drug: fentaNYL (PF) IV 25 mcg/kg/h IV at calculated rate See Administration jb4 Instructions; (Standard concentration 500 mcg / 50 mL NS [10 mcg / 1 mL); Recommended max rate 4 mcg/kg/hr; Titrate 0.25 mcg/kg/hr as often as every 3 minutes to achieve goal (see titration policy); Goal parameter RASS score 0 to -2 Route: IV; Rate: calculated rate; Site: right [facility]; 04/10 00:08 Follow up: Rate change 30 mcg/kg/min [facility] 00:10 Follow up: IV Status: Infusion continued upon transfer [facility] 04/09 21:18 Drug: NS 0.9% IV 1000 ml IV at 125 ml/hr continuous Route: IV; Rate: 125 ml/hr; Site: [facility] right [facility]; 04/10 00:09 Follow up: IV Status: Infusion continued upon transfer [facility] 04/09 21:19 Drug: ceFAZolin IVPB 2 grams IVPB once over 30 mins; (mix in 100 mL NS) Route: IVPB; [facility] Infused Over: 30 mins; Site: right jugular; 23:21 Follow up: IV Status: Completed infusion; IV Intake: 100ml [facility] 21:19 Drug: vancoMYCIN IVPB 1 grams IVPB once over 2 hrs Route: IVPB; Infused Over: 2 hrs; [facility] Site: right jugular; 23:21 Follow up: IV Status: Completed infusion; IV Intake: 250ml 8 21:19 Drug: NS 0.9% IV 1000 ml IV at 1 bolus Per protocol; 1000 mL bolus Route: IV; Rate: 1 km8 bolus; Site: right jugular; 04/10 00:10 Follow up: IV Status: Infusion continued upon transfer [facility] 04/09 21:53 Drug: Propofol IVP 80 mg IVP once; Document RASS score. Route: IVP; Site: right forearm;8 04/10 00:00 Follow up: Response: No adverse reaction; RASS: Deep sedation (-4) [facility] 04/09 23:50 Drug: Propofol IVP 40 mg IVP once; Document RASS score. Route: IVP; Site: right forearm;8 04/10 00:00 Follow up: Response: No adverse reaction; RASS: Deep sedation (-4) 8 Medication: 04/09 19:27 VIS not applicable for this client. ph Intake: 23:21 IV: 100ml; Total: 100ml. 23:21 IV: 250ml; Total: 350ml. km8 Outcome: 23:08 ER care complete, transfer ordered by MD. ga 04/10 00:00 Transferred by ground EMS to [facility], Transfer form km8 completed. Condition: stable Discharge instructions given to family, Instructed on the need for transfer, Demonstrated understanding of instructions, 00:23 Patient left the ED. km8 Signatures: Dispatcher [employer] EDMS Zoe Marie, GENERATOR REBUILDER-C GENERATOR REBUILDER-Ckb Puma Avelar ds4 Arpita Carter RN RN ph Bryson, James, RN RN [email or web address] Campbell, Kaitlyn, RN RN [email or web address] Rosita Marks rv1 Davin Rasheed MD MD sp4 Cindy Spencer RN RN km8 Corrections: (The following items were deleted from the chart) 04/09 19:27 18:45 Inserted saline lock: 18 gauge in right antecubital area, using aseptic ph technique. Maintain EMS IV. Dressing intact. Good blood return noted. Site clean \T\ dry. Gauge \T\ site: 20G LAC. kc6 20:02 19:30 Respiratory: Airway is patent intubated Respiratory effort is even, Respiratory km8 pattern is regular, Ventilator assessment: ET Tube: 21cm. at lip. Ventilator Mode: Assist Control (AC) Respiratory Rate: 18 PEEP: 5 HOB > 30 degrees. Suction provided. 04/10 00:26 04/09 19:16 BP 142 / 101; Pulse 92bpm; Resp 17bpm; Assisted; Pulse Ox 100% ET / km8 Ventilator; ph
--- NOTE | 2023-04-09 23:08 | EDPHYS ---
Physician Documentation [facility] Name: April Ford Age: 47 yrs Sex: Female : 1975 Arrival Date: 04/09/2023 Time: 17:51 Bed 3 Private MD: ED Physician Davin Rasheed HPI: 04/09 18:58 This 47 yrs old Female presents to ER via Unassigned with complaints of asthma SOB. sp3 18:58 47-year-old female with a history of asthma presents via EMS for profound shortness of sp3 breath and dyspnea. EMS administered Solu-Medrol 125 mg IV and 3 albuterol's along with 1 Atrovent in route to the ED. Upon arrival to the ED, patient was in profound respiratory distress and no further history was able to be obtained from patient due to her distress. Please see MDM for continued critical care notes for intubation, central line and medication management. History, physical and ROS severely limited due to the above factors.. Historical: - Allergies: 19:08 Benadryl; kc6 19:08 PENICILLINS; kc6 - PMHx: 19:08 Anxiety; chronic back pain; Migraines; Panic Attacks; Asthma; Heart block; Diabetes kc6 mellitus; - PSHx: 19:08 Ankle-Left; Ligation of fallopian tube; kc6 - Immunization history:: Adult Immunizations unknown. - Social history:: Smoking status: Patient reports the use of cigarette tobacco products. ROS: 19:01 Unable to obtain ROS due to patient is on ventilator, sp3 23:08 Constitutional: Not available sp4 Exam: 19:01 Constitutional: The patient appears Patient presents in extremis with stridorous sp3 airway, poor air movement and tachypnea. Heart rate in the 130s and blood pressure at 90/60. Accessory muscle use noted patient severely tired from her work of breathing. Mild diaphoresis noted. No peripheral edema noted. Patient able to nod yes and no questions briefly. 19:01 ECG was reviewed by the Attending Physician. EKG demonstrates sinus tachycardia at 104 bpm with normal intervals, normal QRS, normal axis, normal ST/T segments without any evidence of ischemia. 19:31 Constitutional: This is a well developed, well nourished patient , my exam patient is sp4 intubated and sedated, vital signs are stable Head/Face: Normocephalic, atraumatic. Eyes: Pupils equal round and reactive to light, Lids and lashes normal. Conjunctiva and sclera are not injected. Cornea within normal limits. Periorbital areas with no swelling, redness, or edema. ENT: Nares patent. No nasal discharge, no septal abnormalities noted. Tympanic membranes are normal and external auditory canals are clear. Oropharynx with no redness, swelling, or masses, exudates, or evidence of obstruction, uvula midline. Mucous membranes moist. Neck: Trachea midline, no thyromegaly or masses palpated, and no cervical lymphadenopathy. Supple, full range of motion without nuchal rigidity, or vertebral point tenderness. Chest/axilla: Normal chest wall appearance and motion. Nontender with no deformity. No lesions are appreciated. Cardiovascular: Regular rate and rhythm with a normal S1 and S2. No gallops, murmurs, or rubs. Normal PMI, no JVD. No pulse deficits. Respiratory: Lungs have equal breath sounds bilaterally, patient is mechanically ventilated, bilateral expiratory wheezes on exam. Abdomen/GI: Soft, with normal bowel sounds. No distension or tympany. No guarding or rebound. Back: No spinal tenderness. No costovertebral tenderness. Skin: Warm, dry with normal turgor. Normal color with no rashes, no lesions, and no evidence of cellulitis. MS/ Extremity: Pulses equal, no cyanosis. Neurovascular intact. Neuro: Exam limited secondary to intubation and sedation, GCS 3 T Vital Signs: 17:40 BP 90 / 74; Pulse 145; Resp 20; Pulse Ox 100% on Nebulizer Mask; Weight 100 kg; ph 18:41 BP 142 / 101; Pulse 92; Resp 17 A; Pulse Ox 100% on ETT vent; km8 19:15 BP 136 / 53; Pulse 89; Resp 16; Pulse Ox 100% on ETT vent; km8 19:30 BP 130 / 66; Pulse 91; Resp 18; Pulse Ox 100% on ETT vent; km8 19:45 BP 193 / 93; Pulse 114; Resp 18 A; Pulse Ox 100% on ETT vent; km8 20:00 BP 143 / 46; Pulse 84; Resp 18 A; Pulse Ox 100% on ETT vent; km8 20:15 BP 132 / 50; Pulse 87; Resp 18 A; Pulse Ox 95% on ETT vent; km8 20:30 BP 138 / 44; Pulse 84; Resp 16 S; Pulse Ox 95% on ETT vent; km8 20:45 BP 124 / 59; Pulse 86; Resp 16 A; Pulse Ox 97% on ETT vent; km8 21:00 BP 120 / 60; Pulse 83; Resp 16 A; Pulse Ox 97% on ETT vent; km8 21:15 BP 142 / 62; Pulse 94; Resp 16 A; Pulse Ox 97% on ETT vent; km8 21:30 BP 126 / 56; Pulse 84; Resp 16 A; Pulse Ox 96% on ETT vent; km8 21:45 BP 133 / 67; Pulse 83; Resp 16 A; Pulse Ox 100% on ETT vent; km8 22:00 BP 121 / 55; Pulse 79; Resp 13 A; Pulse Ox 100% on ETT vent; km8 22:15 BP 113 / 51; Pulse 80; Resp 16 A; Pulse Ox 99% on ETT vent; km8 22:30 BP 117 / 54; Pulse 78; Resp 15 A; Pulse Ox 99% on ETT vent; km8 22:45 BP 115 / 57; Pulse 77; Resp 16 A; Pulse Ox 98% on ETT vent; km8 23:00 BP 118 / 57; Pulse 77; Resp 16 A; Pulse Ox 98% on ETT vent; km8 23:15 BP 124 / 58; Pulse 76; Resp 15 A; Pulse Ox 98% on ETT vent; km8 23:30 BP 130 / 61; Pulse 75; Resp 15 A; Pulse Ox 99% on ETT vent; km8 23:45 BP 139 / 69; Pulse 77; Resp 14 A; Pulse Ox 100% on ETT vent; km8 MDM: 18:01 Patient medically screened. kb 19:03 Data reviewed: vital signs, EMS record, lab test result(s), EKG, radiologic studies. ED sp3 course: Patient was immediately supported with try-ieujw-saoy and magnesium 2 g was started. Second IV was established and intubation procedures were started. Etomidate 20 mg IV was given coupled with 120 mg of succinylcholine. Direct laryngoscopy was used using MAC 4 blade and 7.5 ET tube which found to have a severely narrowed airway and vocal cords with inability to pass tube and one failed attempt into the esophagus. Patient medially started having emesis. Patient was suctioned out to the best of our ability and subsequent attempt using 7.0 tube was successful with color change and adequate ventilation and oxygenation. Steps remain at the breast tach by putting the ventilator on pressure control with a peak inspiratory pressure of 25 leading to tidal volumes of approximately 800 mL/min. Arterial blood gases pending. Right internal jugular central venous triple-lumen catheter was placed in sterile fashion using ultrasound guidance by me without complication and minimal blood loss. Post intubation and central line x-ray demonstrates central line in adequate position and tip of the ET tube approximately 3 cm above the farideh. All lab work is still pending and will be signed out to night physician with ultimate disposition being ICU with pulmonary consultation.. 19:20 ED course: Patient care assumed from Dr. Avalos. My plan to follow-up labs and also sp4 x-ray report and admit patient for ICU management. Patient has acute respiratory failure secondary to severe asthma with status asthmaticus. . 19:34 Differential diagnosis: Anemia Anxiety Reaction asthma, CHF exacerbation, Chronic sp4 Obstructive Pulmonary Disease pneumonia, Psychogenic pulmonary edema, Pulmonary Embolism. ED course: Past medical history of from 02/28/2021 -patient has past medical history of noncardiac chest pains, anxiety, depression, panic attacks. History of left ankle repair, history of tubal ligation, history of tobacco use disorder Daily smoking 1 pack a day, history of Benadryl hydrocodone penicillin allergy. There is no history of asthma and her past medical history.. Will go ahead and obtain CT chest with PE protocol, also urine drug screen, also brain natruretic peptide. . 04/09 18:46 Order name: Blood Culture Adult (2) [facility] 04/09 18:46 Order name: CBC with Diff; Complete Time: 21:52 [facility] 04/09 18:46 Order name: CMP; Complete Time: 20:16 [facility] 04/09 18:46 Order name: Lactate w/ 2H reflex if indic.; Complete Time: 20:16 [facility] 04/09 18:46 Order name: Protime (+inr); Complete Time: 19:38 [facility] 04/09 18:46 Order name: Ptt, Activated; Complete Time: 19:38 [facility] 04/09 18:46 Order name: Urinalysis w/ reflexes; Complete Time: 21:11 [facility] 04/09 18:46 Order name: ABG sp3 04/09 19:24 Order name: Urine Drug Screen; Complete Time: 21:11 4 04/09 19:37 Order name: BNP; Complete Time: 23:34 4 04/09 19:38 Order name: Troponin High Sensitivity; Complete Time: 23:34 4 04/09 19:38 Order name: ABG [facility] 04/09 19:39 Order name: CRP; Complete Time: 23:34 [facility] 04/09 19:39 Order name: Procalcitonin [facility] 04/09 21:18 Order name: CBC Smear Scan; Complete Time: 21:52 EDMS 04/09 21:32 Order name: COVID-19/FLU A+B; Complete Time: 23:34 EDMS 04/09 19:14 Order name: Chest Single View; Complete Time: 19:38 EDMS 04/09 19:38 Order name: CT Chest For PE Angio; Complete Time: 22:31 [facility] 04/09 18:46 Order name: EKG; Complete Time: 18:46 [facility] 04/09 18:46 Order name: Cardiac monitoring; Complete Time: 18:51 3 04/09 18:46 Order name: Cath; Complete Time: 19:41 3 04/09 18:46 Order name: EKG - Nurse/Tech; Complete Time: 19:02 [facility] 04/09 18:46 Order name: IV Saline Lock - Large Bore; Complete Time: 18:51 3 04/09 18:46 Order name: Labs collected and sent; Complete Time: 19:17 3 04/09 18:46 Order name: O2 Per Protocol; Complete Time: 18:51 3 04/09 18:46 Order name: O2 Sat Monitoring; Complete Time: 18:51 3 04/09 18:46 Order name: Vital Signs; Complete Time: 18:51 3 04/09 19:19 Order name: Restraint:Non-Violent; Complete Time: 19:39 [facility] Administered Medications: 07:50 Drug: Succinylcholine IVP 120 mg IVP once Route: IVP; Site: right antecubital; ph 19:00 Follow up: Response: No adverse reaction [facility] 08:00 Drug: Ketamine IVP 100 mg IVP once Route: IVP; Site: right antecubital; ph 19:00 Follow up: Response: No adverse reaction km8 17:45 Drug: Magnesium Sulfate IVPB 2 grams IVPB once over 2 hrs Route: IVPB; Infused Over: 2 ph hrs; Site: left antecubital; 19:00 Follow up: IV Status: Completed infusion 8 17:50 Drug: Etomidate IVP 20 mg IVP once Route: IVP; Site: right antecubital; ph 19:00 Follow up: Response: No adverse reaction km8 17:55 Drug: Succinylcholine IVP 80 mg IVP once Route: IVP; Site: right antecubital; ph 19:00 Follow up: Response: No adverse reaction km8 17:55 Drug: Etomidate IVP 20 mg IVP once Route: IVP; Site: right antecubital; ph 19:00 Follow up: Response: No adverse reaction km8 18:13 Drug: Ketamine IVP 100 mg IVP once Route: IVP; Site: right antecubital; ph 19:00 Follow up: Response: No adverse reaction km8 18:28 Drug: Propofol IVP 60 mg IVP once; Document RASS score. Route: IVP; Site: right ph antecubital; 19:00 Follow up: Response: No adverse reaction km8 18:28 Drug: Propofol IVP 0.5 mg/kg IVP once; Document RASS score. Route: IVP; Site: right ph antecubital; 19:00 Follow up: Response: No adverse reaction km8 18:35 Drug: Propofol IVP 80 mg IVP once; Document RASS score. Route: IVP; Site: right antecubital; 19:00 Follow up: Response: No adverse reaction 8 19:54 Drug: Propofol IV 5 mcg/kg/min IV at calculated rate See Administration Instructions; jb4 Standard concentration 1000 mg / 100 mL; Recommended max rate 50 mcg/kg/min; Titrate 2 mcg/kg/min every 5 minutes to achieve goal (see titration policy); Goal parameter RASS score 0 to -2 {Note: Started by day shift. 2 100mg bolus given, Provider notified, titrated to 35mcg/kg/min, instructed to continue giving 100mg bolus as needed to maintain sedation..} Route: IV; Rate: calculated rate; Site: right antecubital; 21:26 Follow up: Rate change 40 mcg/kg/min jb4 23:50 Follow up: Rate change 60 mcg/kg/min [facility] 04/10 00:10 Follow up: IV Status: Infusion continued upon transfer [facility] 04/09 20:13 Drug: fentaNYL (PF) IV 25 mcg/kg/h IV at calculated rate See Administration jb4 Instructions; (Standard concentration 500 mcg / 50 mL NS [10 mcg / 1 mL); Recommended max rate 4 mcg/kg/hr; Titrate 0.25 mcg/kg/hr as often as every 3 minutes to achieve goal (see titration policy); Goal parameter RASS score 0 to -2 Route: IV; Rate: calculated rate; Site: right jugular; 04/10 00:08 Follow up: Rate change 30 mcg/kg/min [facility] 00:10 Follow up: IV Status: Infusion continued upon transfer [facility] 04/09 21:18 Drug: NS 0.9% IV 1000 ml IV at 125 ml/hr continuous Route: IV; Rate: 125 ml/hr; Site: [facility] right jugular; 04/10 00:09 Follow up: IV Status: Infusion continued upon transfer [facility] 04/09 21:19 Drug: ceFAZolin IVPB 2 grams IVPB once over 30 mins; (mix in 100 mL NS) Route: IVPB; [facility] Infused Over: 30 mins; Site: right jugular; 23:21 Follow up: IV Status: Completed infusion; IV Intake: 100ml [facility] 21:19 Drug: vancoMYCIN IVPB 1 grams IVPB once over 2 hrs Route: IVPB; Infused Over: 2 hrs; km8 Site: right jugular; 23:21 Follow up: IV Status: Completed infusion; IV Intake: 250ml [facility] 21:19 Drug: NS 0.9% IV 1000 ml IV at 1 bolus Per protocol; 1000 mL bolus Route: IV; Rate: 1 8 bolus; Site: right jugular; 04/10 00:10 Follow up: IV Status: Infusion continued upon transfer [facility] 04/09 21:53 Drug: Propofol IVP 80 mg IVP once; Document RASS score. Route: IVP; Site: right forearm;[facility] 04/10 00:00 Follow up: Response: No adverse reaction; RASS: Deep sedation (-4) [facility] 04/09 23:50 Drug: Propofol IVP 40 mg IVP once; Document RASS score. Route: IVP; Site: right forearm;[facility] 04/10 00:00 Follow up: Response: No adverse reaction; RASS: Deep sedation (-4) km8 Disposition Summary: 04/09/23 23:08 Transfer Ordered Notes: Transfer Location: [facility]-System sp4 Reason: Higher level of care sp4 Condition: Serious sp4 Problem: new sp4 Symptoms: have improved sp4 Accepting Physician: [facility] Attending (04/10/23 00:23) km8 Diagnosis - Acute respiratory failure with hypoxia sp4 - Moderate persistent asthma with status asthmaticus sp4 Discharge Instructions: - Discharge Summary Sheet rv1 Forms: - SBAR form rv1 - Medication Reconciliation Form sp4 Signatures: Dispatcher [employer] EDMS Zoe Marie, ICE CREAM FREEZER ASSISTANT-C ICE CREAM FREEZER ASSISTANT-CkArpita Garrido, RN RN Francisco J Dumont RN RN jb4 Montse Avalos MD MD sp3 Deborah Abad RN RN kc6 Davin Rasheed MD MD sp4 Cindy Spencer RN RN km8 Corrections: (The following items were deleted from the chart) 04/09 19:14 18:36 Chest Pa And Lat (2 Views)+RAD.RAD.BRZ ordered. EDMS EDMS 19:18 18:55 Chest Single View+RAD.RAD.BRZ ordered. EDMS EDMS 21:32 19:38 Influenza Screen (A \T\ B)+BA.LAB.BRZ ordered. EDMS EDMS 21:33 19:38 SARS-COV-2 RT PCR+MOL.LAB.BRZ ordered. EDMS EDMS 04/10 00:23 04/09 23:08 [facility] Attending sp4 km8
[2023-04-10] MEDS ORDERED: propofoL 1,000 MG/100 ML VIAL IV ONE
[2023-04-10 01:08] VITALS: BP 142/101; O2SAT 100
--- NOTE | 2023-04-14 15:35 | EKG ---
Test Date: 2023-04-09 Test Time: 18:57:19 Residential Support Worker: ANTONIO MEASUREMENT RESULTS: Intervals: Rate: 104 NC: 116 QRSD: 92 QT: 366 QTc: 481 [place]: P: 59 NC: 116 QRS: 78 T: 77 INTERPRETIVE STATEMENTS: Sinus tachycardia Otherwise normal ECG Compared to ECG 07/01/2022 14:53:16 Sinus rhythm no longer present Right-axis deviation no longer present Electronically Signed On 04-14-23 15:18:34 COSMETIC DENTIST by Robin Jesus
== END 2023-04-10 00:23 | disposition short-term general hospital (02) ==
LOC: ER 17:51
PROC: 0BH17EZ Insertion of Endotracheal Airway into Trachea, Via Natural or Artificial Opening (ICD-10-PCS; principal; 2023-04-10)
PROC: 05HM33Z Insertion of Infusion Device into Right Internal Jugular Vein, Percutaneous Approach (ICD-10-PCS; 2023-04-10)
DX: J96.01 Acute respiratory failure with hypoxia (principal); J45.42 Moderate persistent asthma with status asthmaticus; E11.9 Type 2 diabetes mellitus without complications; Z72.0 Tobacco use; Z88.0 Allergy status to penicillin; Z88.8 Allergy status to other drugs, medicaments and biological substances
CPT/HCPCS: 93005; 87040 ×2; 85025; 81001; 36415; 85610; 83605; 85730; 84484; 80053; 84145; 83880; 0240U; 80307; 86140; 71275; 71045; 31500; 51702; 99291; 99292; 94002; 94003; 36556; Q9967; J2704 ×3; J3475; J3010; J0692; J7050; J7030 ×2

== ENCOUNTER → 2023-08-06 | Emergency (ER) | payer OTHER, SELFPAY ==
[~2023-08-06] MED LIST: FENTANYL CITR 100 MCG/2 ML ONE; KETOROLAC 30 MG/ML INJ ONE; METOCLOPRAMIDE 10 MG/2mL INJ ONE
--- OUTSIDE RECORDS SUMMARY | 2023-08-06 16:14 | XMS REPORT | Continuity of Care Document ---
Author Name Unknown Address [address] [place] [address] [facility] Address [address] [place] [address] Care Team Providers Care Compositor Apprentice Name Role Phone SALAS Jacques [facility], [facility] Care Physician Unavailable HIREN MOYER Attending Clinician Ling Smyth MD Attending Clinician [phone] Apurva Ba RN Attending Clinician [phone] DAVINA BOYD Attending Clinician Unavailable Mohamud Jacob MD Attending Clinician Jair Reynolds MD Attending Clinician [phone] Davina Boyd MD Attending Clinician [phone] Josef Galvez OT Attending Clinician Unavail MAYCO Sheppard Attending Clinician Unavaillory Del Rio MD, Mayco Maurer Attending Clinician [phone] Shefali Whitney PTA Attending Clinician Unavail Garrett Whelan MD Attending Clinician [phone] GARRETT HERRERA Attending Clinician UnavailMayco Majano PTA Attending Clinician Unavaila claire Clarke PTA, Sandra Retana Attending Clinician Unav ailable Abdon Corrales PT, Fabiana Attending Clinician Un available Doctor Unassigned, [place] Attending Clinician U navailable BLAISE SALAS Attending Clinician Unavailable Blaise Salas MD Attending Clinician [phone] PATRICK SINGH Attending Clinician Unavailable Patrick Singh MD Attending Clinician [phone] Paras Puri Attending Clinician Unavailable JAIR REYNOLDS Admitting Clinician Unavailable Jair Reynolds MD Admitting Clinician [phone] MAYCO DEL RIO Admitting Clinician UnavailBLAISE Weinstein Admitting Clinician Unavailable PATRICK SINGH Admitting Clinician Unavailable Dianne Setwart Admitting Clinician Unavailable Payers Payer Name Policy Type Policy Number Effective Date Expirati on Date Source [employer] [id number] 2022 00:00:00 [employer] [facility] [id number] 2014 00:00:00 Problems Condition Name Condition Details Condition Category Status Onset Date Resolution Date Last Treatment Date Treating Clinician Comments Source Morbid obesity with body mass index of 40.0-49.9 Morbid obesity with body mass index of 40.0-49.9 Disease Active 2022-05 00:00: 00 [facility] Status asthmaticu s Status asthmaticu s Disease Active 2022-05 00:00: 00 [facility] Obesity (BMI 30-39.9) Obesity (BMI 30-39.9) Disease Active 2022-05 00:00: 00 [facility] No known active problems No known active problems Disease [facility] Allergies, Adverse Reactions, Alerts Allergy Name Allergy Type Status Severity Reaction(s) Onset Date Inactive Date Treating Clinician Comments Source BENADRYL ALLERGY DECONGES TANT DRUG Active High Swelling 08-18 00:00: 00 [facility] Benadryl Allergy Deconges tant Propensi ty to adverse reaction s Active Swelling 08-18 00:00: 00 [facility] diphenhy dramine DA Active SV HIVES AROUND HER BODY 2020-05 00:00: 00 [facility] Penicill ins DA Active U UNKNOWN ACCORDING TO PATIENT BEING TOLD SINCE SHE WAS A CHIL 2020-05 00:00: 00 [facility] PENICILL IN DRUG INGREDI Active Unknown-Cmnt 06-23 00:00: 00 [facility] Penicill in Propensi ty to adverse reaction s Active Unknown - See comments 06-23 00:00: 00 Was told as a child [facility] NO KNOWN ALLERGIE S Drug Class Active [facility] Social History Social Habit Start Date Stop Date Quantity Comments Source Gender [facility] of [facility] use Passive smoker [facility] Tobacco use and exposure 2023-04-16 00:00:00 2023-04-16 00:00:00 Smokeless tobacco non-user [facility] History of Social function 2023-04-14 00:00:00 2023-04-14 00:00:00 [facility] Exposure to SARS-CoV-2 (event) 2022-01-01 00:00:00 2022-01-11 10:34:00 Not sure [facility] Sex Assigned At 1975 00:00:00 1975 00:00:00 [facility] Smoking Status Start Date Stop Date Source Tobacco smoking consumption unknown [facility] Ex-smoker 2023-04-16 00:00:00 2023-04-16 00:00:00 [facility] Medications Ordered Medication Name Filled Medication Name Start Date Stop Date Current Medication? Ordering Clinician Indication Dosage Frequency Signature (SIG) Comments Components Source Fluticasone -Salmeterol (WIXELA INHUB) 500-50 mcg/dose inhalation disk 2022-05 00:00: 00 Yes [id number] 1{puff} Inhale 1 Puff every 12 (twelve) hours. Use twice daily for maintenanc e. May also use as needed for rescue. [facility] Fluticasone -Salmeterol (WIXELA INHUB) 500-50 mcg/dose inhalation disk 2022-05 00:00: 00 Yes [id number] 1{puff} Inhale 1 Puff every 12 (twelve) hours. Use twice daily for maintenanc e. May also use as needed for rescue. [facility] amLODIPine 10 mg tablet 2022-05 00:00: 00 Yes [id number] 10mg Take 1 tablet by mouth in the morning. [facility] hydroCHLORO thiazide 12.5 mg capsule 2022-05 00:00: 00 Yes [id number] 12.5mg Take 1 capsule by mouth in the morning. [facility] amLODIPine 10 mg tablet 2022-05 00:00: 00 Yes [id number] 10mg Take 1 tablet by mouth in the morning. [facility] hydroCHLORO thiazide 12.5 mg capsule 2022-05 00:00: 00 Yes [id number] 12.5mg Take 1 capsule by mouth in the morning. [facility] amLODIPine 10 mg tablet 2022-05 00:00: 00 Yes [id number] 10mg Take 1 tablet by mouth in the morning. [facility] hydroCHLORO thiazide 12.5 mg capsule 2022-05 00:00: 00 Yes [id number] 12.5mg Take 1 capsule by mouth in the morning. [facility] amLODIPine 10 mg tablet 2022-05 00:00: 00 Yes [id number] 10mg Take 1 tablet by mouth in the morning. [facility] hydroCHLORO thiazide 12.5 mg capsule 2022-05 00:00: 00 Yes [id number] 12.5mg Take 1 capsule by mouth in the morning. [facility] amLODIPine 10 mg tablet 2022-05 00:00: 00 Yes [id number] 10mg Take 1 tablet by mouth in the morning. [facility] hydroCHLORO thiazide 12.5 mg capsule 2022-05 00:00: 00 Yes [id number] 12.5mg Take 1 capsule by mouth in the morning. [facility] amLODIPine 10 mg tablet 2022-05 00:00: 00 Yes [id number] 10mg Take 1 tablet by mouth in the morning. [facility] hydroCHLORO thiazide 12.5 mg capsule 2022-05 00:00: 00 Yes [id number] 12.5mg Take 1 capsule by mouth in the morning. [facility] montelukast 10 mg tablet 2022-05 00:00: 00 04-20 00:00 :00 No [id number] 10mg Take 1 tablet by mouth in the morning. [facility] albuterol (VENTOLIN) inhaler 2 Puff 2022-05 20:45: 00 Yes 2{puff} 2 Puff, Inhalation , Q4H, First dose on Tue04/20/23 at 1600, Until Discontinu ed, Routine [facility] naproxen (NAPROSYN) 500 mg tablet 2022-05 00:00: 00 Yes [id number] 500mg Take 1 tablet by mouth every 8 (eight) hours as needed for Pain (scale 4-6). [facility] budesonide- formoteroL 160-4.5 mcg/actuati on inhaler 2022-05 00:00: 00 Yes [id number] 2{puff} Inhale 2 Puffs in the morning and 2 Puffs in the evening. [facility] naproxen (NAPROSYN) 500 mg tablet 2022-05 00:00: 00 Yes [id number] 500mg Take 1 tablet by mouth every 8 (eight) hours as needed for Pain (scale 4-6). [facility] budesonide- formoteroL 160-4.5 mcg/actuati on inhaler 2022-05 00:00: 00 Yes [id number] 2{puff} Inhale 2 Puffs in the morning and 2 Puffs in the evening. [facility] naproxen (NAPROSYN) 500 mg tablet 2022-05 2- 00:00: 00 Yes [id number] 500mg Take 1 tablet by mouth every 8 (eight) hours as needed for Pain (scale 4-6). [facility] budesonide- formoteroL 160-4.5 mcg/actuati on inhaler 2022-05 2- 00:00: 00 Yes [id number] 2{puff} Inhale 2 Puffs in the morning and 2 Puffs in the evening. [facility] naproxen (NAPROSYN) 500 mg tablet 2022-05 2 00:00: 00 Yes [id number] 500mg Take 1 tablet by mouth every 8 (eight) hours as needed for Pain (scale 4-6). [facility] budesonide- formoteroL 160-4.5 mcg/actuati on inhaler 2022-05 2 00:00: 00 Yes [id number] 2{puff} Inhale 2 Puffs in the morning and 2 Puffs in the evening. [facility] naproxen (NAPROSYN) 500 mg tablet 2022-05 2 00:00: 00 Yes [id number] 500mg Take 1 tablet by mouth every 8 (eight) hours as needed for Pain (scale 4-6). [facility] naproxen (NAPROSYN) 500 mg tablet 2022-05 2 00:00: 00 Yes [id number] 500mg Take 1 tablet by mouth every 8 (eight) hours as needed for Pain (scale 4-6). [facility] budesonide- formoteroL 160-4.5 mcg/actuati on inhaler 2022-05 2- 00:00: 00 05-03 00:00 :00 No [id number] 2{puff} Inhale 2 Puffs in the morning and 2 Puffs in the evening. [facility] budesonide- formoteroL 160-4.5 mcg/actuati on inhaler 2022-05 2- 00:00: 00 05-03 00:00 :00 No [id number] 2{puff} Inhale 2 Puffs in the morning and 2 Puffs in the evening. [facility] benzonatate 100 mg capsule 2022-05 00:00: 00 04-26 05:59 :00 No [id number] 100mg Take 1 capsule by mouth every 8 (eight) hours as needed for Cough for up to 5 days. [facility] benzonatate 100 mg capsule 2022-05 00:00: 00 04-26 05:59 :00 No [id number] 100mg Take 1 capsule by mouth every 8 (eight) hours as needed for Cough for up to 5 days. [facility] benzonatate 100 mg capsule 2022-05 00:00: 00 04-26 05:59 :00 No [id number] 100mg Take 1 capsule by mouth every 8 (eight) hours as needed for Cough for up to 5 days. [facility] benzonatate 100 mg capsule 2022-05 00:00: 00 04-26 05:59 :00 No [id number] 100mg Take 1 capsule by mouth every 8 (eight) hours as needed for Cough for up to 5 days. [facility] iron dextran (INFED) 1,000 mg in NaCl 0.9% (NS) 500 mL IV infusion 2022-05 19:30: 00 04-20 00:31 :00 No 1000mg 1,000 mg, IV Infusion, ONCE, 1 dose, On Tue04/19/23 at 1330, Administer over 1 Hours, 500 mL [facility] iron dextran (INFED) 25 mg in NaCl 0.9% (NS) 100 mL IV piggyback 2022-05 19:30: 00 04-19 22:19 :00 No 25mg 25 mg, IV Piggyback, ONCE, 1 dose, On Tue04/19/23 at 1330, Administer over 15 Minutes, 100 mL [facility] benzonatate (TESSALON PERLES) capsule 100 mg 2022-05 15:15: 00 Yes 100mg 100 mg, Oral, Q8H, First dose on Tue04/19/23 at 0915, Until Discontinu ed, Routine [facility] furosemide (LASIX) injection 20 mg 2022-05 16:00: 00 04-17 16:02 :00 No 20mg 20 mg, Slow IV Push, ONCE, 1 dose, On 04/17/23 at 1000, Routine [facility] budesonide- formoteroL (SYMBICORT) 80-4.5 mcg/actuati on inhaler 2 Puff 2022-05 15:45: 00 Yes 2{puff} 2 Puff, Inhalation , BID, First dose on 04/17/23 at 0945, Until Discontinu ed, Routine [facility] sodium chloride 7% (HYPER-MAYRA) nebulizer solution 4 mL 2022-05 15:45: 00 Yes 4mL 4 mL, Inhalation , BID, First dose on 04/17/23 at 0945, Until Discontinu ed, Routine [facility] lidocaine 2% viscous (LIDOCAINE VISCOUS) 2 % solution 15 mL 2022-05 15:30: 00 04-17 20:37 :00 No 15mL 15 mL, Oral, ONCE, 1 dose, On 04/17/23 at 0930, Routine [facility] hydroCHLORO thiazide (ESIDRIX) capsule 12.5 mg 2022-05 15:00: 00 Yes 12.5mg 12.5 mg, Oral, DAILY, First dose on 04/17/23 at 0900, Until Discontinu ed, Routine [facility] polyethylen e glycol 3350 powder 17 g 2022-05 15:00: 00 Yes 17g 17 g, Oral, DAILY, First dose (after last modificati on) on 04/17/23 at 0900, Until Discontinu ed, Routine [facility] sennosides (SENOKOT) tablet 8.6 mg 2022-05 15:00: 00 Yes 8.6mg 8.6 mg, Oral, DAILY, First dose (after last modificati on) on 04/17/23 at 0900, Until Discontinu ed, Routine [facility] pantoprazol e (PROTONIX) EC tablet 40 mg 2022-05 15:00: 00 Yes 40mg 40 mg, Oral, DAILY, First dose on 04/17/23 at 0900, Until Discontinu ed, Routine [facility] losartan (COZAAR) tablet 50 mg 2022-05 15:00: 00 Yes 50mg 50 mg, Oral, DAILY, First dose (after last modificati on) on 04/17/23 at 0900, Until Discontinu ed, Routine [facility] amLODIPine (NORVASC) tablet 10 mg 2022-05 15:00: 00 Yes 10mg 10 mg, Oral, DAILY, First dose (after last modificati on) on 04/17/23 at 0900, Until Discontinu ed, Routine [facility] predniSONE (DELTASONE) tablet 40 mg 2022-05 15:00: 00 04-20 14:33 :00 No 40mg 40 mg, Oral, DAILY, 4 doses, First dose on 04/17/23 at 0900, Last dose on Tue04/20/23 at 0900, Routine [facility] guaiFENesin 100 mg/5 mL solution 200 mg 2022-05 12:45: 00 04-19 15:10 :35 No 200mg 200 mg, Oral, Q4H, First dose on 04/17/23 at 0645, Until Discontinu ed, Routine [facility] Sliding Scale Insulin - Lispro (HumaLOG) 2022-05 23:00: 00 Yes Subcutaneo us, TID MEALS+HS, First dose (after last modificati on) on 04/16/23 at 1700, Until Discontinu ed, Routine [facility] ipratropium (ATROVENT) 0.02 % nebulizer solution 0.5 mg 2022-05 22:00: 00 Yes .5mg 0.5 mg, Inhalation , Q4H, First dose on 04/16/23 at 1600, Until Discontinu ed, Routine [facility] levalbutero l (XOPENEX) nebulizer solution 1.25 mg 2022-05 22:00: 00 Yes 1.25mg 1.25 mg, Inhalation , Q4H, First dose on 04/16/23 at 1600, Until Discontinu ed, Routine [facility] enoxaparin (LOVENOX) injection 40 mg 2022-05 21:15: 00 Yes 40mg 40 mg, Subcutaneo us, Q24H, First dose on 04/16/23 at 1515, Until Discontinu ed, Routine [facility] furosemide (LASIX) injection 20 mg 2022-05 21:00: 00 04-16 21:12 :00 No 20mg 20 mg, Slow IV Push, ONCE, 1 dose, On 04/16/23 at 1500, Routine [facility] Lidocaine (LIDOCARE) 4 % patch 1 Patch 2022-05 20:45: 00 04-17 09:12 :00 No 1{patch } 1 Patch, Topical, Administer over 12 Hours, ONCE, 1 dose, On 04/16/23 at 1445, Routine [facility] ipratropium -albuteroL (DUONEB) 0.5 mg-3 mg(2.5 mg base)/3 mL nebulizer solution 3 mL 2022-05 20:15: 00 Yes 3mL 3 mL, Inhalation , QIDPRN, Starting on 04/16/23 at 1415, Until Discontinu ed, Routine, Wheezing [facility] phenoL (SORE THROAT (PHENOL)) 1.4 % spray bottle 1 Reynolds 2022-05 13:47: 02 Yes 1{spray } 1 Reynolds, Oral, PRN, Starting on 04/16/23 at 0747, Until Discontinu ed, Routine, Sore throat [facility] Lidocaine (LIDOCARE) 4 % patch 1 Patch 2022-05 10:00: 00 04-16 22:03 :00 No 1{patch } 1 Patch, Topical, Administer over 12 Hours, ONCE, 1 dose, On 04/16/23 at 0400, Routine [facility] acetaminoph en (TYLENOL) tablet 650 mg 2022-05 07:40: 11 Yes 650mg 650 mg, Oral, Q6HPRN, Starting on Tue04/16/23 at 0140, Until Discontinu ed, Routine, Pain (scale 1-3), Temp > 38 C [facility] amLODIPine (NORVASC) tablet 5 mg 2022-05 06:00: 00 04-16 16:38 :32 No 5mg 5 mg, Oral, DAILY, First dose on Tue04/16/23 at 0000, Until Discontinu ed, Routine [facility] hydralAZINE (APRESOLINE ) injection 10 mg 2022-05 03:45: 00 04-16 04:32 :00 No 10mg 10 mg, Slow IV Push, ONCE, 1 dose, On Tue04/15/23 at 2145, STAT [facility] D5W IV infusion 1,000 mL 2022-05 02:45: 00 04-16 02:42 :02 No 1000mL at 150 mL/hr, IV Infusion, ONCE, 1 dose, On Tue04/15/23 at 2045, Routine [facility] lactated ringers IV infusion 1,000 mL 2022-05 02:30: 00 04-16 02:43 :00 No 1000mL at 200 mL/hr, 1,000 mL, IV Infusion, ONCE, 1 dose, On Tue04/15/23 at 2030, Routine [facility] lactated ringers IV infusion 1,000 mL 2022-05 01:30: 00 04-16 00:55 :00 No 1000mL at 50 mL/hr, 1,000 mL, IV Infusion, ONCE, 1 dose, On Tue04/15/23 at 1930, Routine [facility] losartan (COZAAR) tablet 25 mg 2022-05 01:00: 00 04-16 16:38 :32 No 25mg 25 mg, Oral, DAILY, First dose on Tue04/15/23 at 2000, Until Discontinu ed, Routine [facility] acetaminoph en ADULT (OFIRMEV) injection 1,000 mg 2022-05 04:08: 24 04-16 04:07 :24 No 1000mg 1,000 mg, IV Infusion, at 400 mL/hr Administer over 15 Minutes, Q8HPRN, Starting on Tue04/14/23 at 2208, Until Tue04/15/23 at 2207, Routine, Pain (scale 1-3), Fever>38c< br>Indicat ion: Strict NPO and unable to tolerate oral medication s [facility] dexamethaso ne sod phos PF injection 6 mg 2022-05 00:00: 00 04-15 11:00 :00 No 6mg 6 mg, Intravenou s, Q6H, 3 doses, First dose on Tue04/14/23 at 1800, Last dose on Tue04/15/23 at 0600, 1 mL [facility] dexMEDEtomi dine 200 mcg in 0.9 % NaCl 50 mL (PRECEDEX) RTU IV infusion 2022-05 22:16: 31 04-16 17:34 :23 No .2ug/kg /h 0.2-1.5 mcg/kg/hr ?102.1 kg (5.105-38. 2875 mL/hr, rounded to 5.11-38.29 mL/hr), IV Infusion, TITRATE, Sedation-R ASS -2 to -3, Starting on Tue04/14/23 at 1616
In itiate infusion at 0.2 mcg/kg/hr and titrate by 0.1 mcg/kg/hr every 15 minutes to goal sedation score. Maximum dose = 1.5 mcg/kg/hr. If goal not maintained at maximum allowed dose, contact prescriber .
[facility] furosemide (LASIX) injection 20 mg 2022-05 22:00: 00 04-14 21:17 :00 No 20mg 20 mg, Slow IV Push, ONCE, 1 dose, On Tue04/14/23 at 1600, ZEHRA [facility] sennosides (SENOKOT) tablet 8.6 mg 2022-05 15:00: 00 04-16 20:06 :20 No 8.6mg 8.6 mg, Enteral, DAILY, First dose on Tue04/14/23 at 0900, Until Discontinu ed, Routine [facility] polyethylen e glycol 3350 powder 17 g 2022-05 15:00: 00 04-16 20:06 :20 No 17g 17 g, Enteral, DAILY, First dose on Tue04/14/23 at 0900, Until Discontinu ed, Routine [facility] potassium chloride 40 mEq in 100 mL IVPB 2022-05 12:00: 00 04-14 19:56 :00 No 40meq 40 mEq, Intravenou s, Q2H, 2 doses, First dose on Tue04/14/23 at 0600, Last dose on Tue04/14/23 at 0800, 100 mL [facility] acetaminoph en ADULT (OFIRMEV) injection 1,000 mg 2022-05 04:56: 37 04-15 04:09 :21 No 1000mg 1,000 mg, IV Infusion, at 400 mL/hr Administer over 15 Minutes, Q8HPRN, Starting on Tue04/13/23 at 2256, Until Tue04/14/23 at 2209, Routine, Pain (scale 1-3), fever
I ndication: Strict NPO and unable to tolerate oral medication s [facility] acetaminoph en ADULT (OFIRMEV) injection 1,000 mg 2022-05 20:30: 00 04-13 20:02 :00 No 1000mg 1,000 mg, IV Infusion, at 400 mL/hr Administer over 15 Minutes, ONCE, 1 dose, On Tue04/13/23 at 1430, Routine
Indicatio n: Strict NPO and unable to tolerate oral medication s [facility] dexMEDEtomi dine 200 mcg in 0.9 % NaCl 50 mL (PRECEDEX) RTU IV infusion 2022-05 16:44: 22 04-14 22:16 :44 No .2ug/kg /h 0.2-1.5 mcg/kg/hr ?102.1 kg (5.105-38. 2875 mL/hr, rounded to 5.11-38.29 mL/hr), IV Infusion, TITRATE, Sedation-R ASS -2 to -3, Starting on Tue04/13/23 at 1044
In itiate infusion at 0.2 mcg/kg/hr and titrate by 0.1 mcg/kg/hr every 30 minutes to goal sedation score. Maximum dose = 1.5 mcg/kg/hr. If goal not maintained at maximum allowed dose, contact prescriber .
[facility] midazolam (VERSED) STD 50mg in NaCl 0.9% (NS) 50 mL infusion RTU 2022-05 16:44: 12 04-16 17:34 :23 No 1mg/h 1-10 mg/hr (1-10 mL/hr), IV Infusion, TITRATE, Sedation-R ASS score (-2 to -3), Starting on Tue04/13/23 at 1044
In itiate infusion at 1 mg/hr and titrate by 1 mg/hr every 3 minutes to 10 minutes to goal sedation score. Maximum dose = 10 mg/hr.&nbs p; If goal not maintained at maximum allowed dose, contact prescriber .
[facility] propofoL IV infusion 2022-05 16:43: 55 04-16 17:34 :23 No 5ug/kg/ min 5-70 mcg/kg/min ?102.1 kg (3.063-42. 882 mL/hr, rounded to 3.06-42.88 mL/hr), IV Infusion, TITRATE, Sedation-R ASS score (-2 to -3), Starting on Tue04/13/23 at 1043
In itiate infusion at 5 mcg/kg/min and titrate by 5 mcg/kg/min every 30 seconds to 10 minutes to goal sedation score. Maximum dose = 70 mcg/kg/min . If goal not maintained at maximum allowed dose, contact prescriber . &amp ;nbsp;Tubi ng and unused portions of vials should be discarded after 12 hours.
[facility] acetaminoph en ADULT (OFIRMEV) injection 1,000 mg 2022-05 05:00: 00 04-13 04:31 :00 No 1000mg 1,000 mg, IV Infusion, at 400 mL/hr Administer over 15 Minutes, ONCE, 1 dose, On Tue04/12/23 at 2300, Routine
Indicatio n: Strict NPO and unable to tolerate oral medication s [facility] propofoL IV infusion 2022-05 21:03: 51 04-13 16:44 :47 No 5ug/kg/ min 5-70 mcg/kg/min ?102.1 kg (3.063-42. 882 mL/hr, rounded to 3.06-42.88 mL/hr), IV Infusion, TITRATE, Sedation-R ASS score (-4 to -5), Starting on Tue04/12/23 at 1503
In itiate infusion at 5 mcg/kg/min and titrate by 5 mcg/kg/min every 30 seconds to 10 minutes to goal sedation score. Maximum dose = 70 mcg/kg/min . If goal not maintained at maximum allowed dose, contact prescriber . &amp ;nbsp;Tubi ng and unused portions of vials should be discarded after 12 hours.
[facility] furosemide (LASIX) injection 40 mg 2022-05 20:15: 00 04-12 20:54 :00 No 40mg 40 mg, Slow IV Push, ONCE, 1 dose, On Tue04/12/23 at 1430, Routine [facility] azithromyci n (ZITHROMAX) 500 mg in NaCl 0.9% (NS) 250 mL VIAL-MATE IV piggyback 2022-05 18:15: 00 04-14 18:53 :00 No 500mg 500 mg, IV Piggyback, Q24H ABX, 3 doses, First dose (after last reorder) on Tue04/12/23 at 1215, Last dose on Tue04/14/23 at 1215, Administer over 60 Minutes, 250 mL
Reas on for Anti-Infec tive: Empiric Therapy for Suspected Infection< br>Empiric Therapy Site: Respirator y
Durat ion of therapy: 72 hours [facility] albuterol (PROVENTIL) 2.5 mg /3 mL (0.083 %) nebulizer solution 5 mg 2022-05 17:00: 00 04-15 06:30 :39 No 5mg 5 mg, Inhalation , Q3H, First dose (after last modificati on) on Tue04/12/23 at 1100, Until Discontinu ed, Routine [facility] acetaminoph en ADULT (OFIRMEV) injection 1,000 mg 2022-05 16:45: 00 04-12 16:23 :00 No 1000mg 1,000 mg, IV Infusion, at 400 mL/hr Administer over 15 Minutes, ONCE, 1 dose, On Tue04/12/23 at 1045, Routine
Indicatio n: Strict NPO and unable to tolerate oral medication s [facility] albuterol (PROVENTIL) 2.5 mg /3 mL (0.083 %) nebulizer solution 5 mg 2022-05 03:00: 00 04-12 15:49 :34 No 5mg 5 mg, Inhalation , Q1H, First dose (after last modificati on) on Tue04/11/23 at 2100, Until Discontinu ed, Routine [facility] phenylephri ne (VAZCULEP) 50 mg in NaCl 0.9% (NS) 250 mL infusion 2022-05 01:56: 09 04-14 15:05 :39 No .5ug/kg /min 0.5-6 mcg/kg/min ?102.1 kg (15.315-18 3.78 mL/hr, rounded to 15.32-183. 78 mL/hr), IV Infusion, TITRATE, MAP Goal > or = 65 mmHg, Starting on Tue04/11/23 at 1956
In itiate infusion at 0.2 mcg/kg/min . &nb sp;Increas e by 0.1 mcg/kg/min every 30 seconds to 5 minutes as needed to reach and maintain goal blood pressure.& nbsp;&nbsp ;Maximum dose = 6 mcg/kg/min . &nb sp;If goal not maintained at maximum allowed dose, contact prescriber .
[facility] insulin lispro (human) (HumaLOG U-100) injection 2 Units 2022-05 00:43: 11 Yes 2U 2 Units, Subcutaneo us, PRN - SEE INSTRUCTIO NS, 1 dose, Starting on Tue04/11/23 at 1843, Until Discontinu ed, Routine, For blood glucose > 300 mg/dL [facility] [facility] dext[facility] 10% (D10W) bolus infusion 125 mL 2022-05 00:43: 11 Yes 125mL 125 mL, Intravenou s, PRN - SEE INSTRUCTIO NS, Administer over 60 Minutes, Other, Administer once if after insulin administra tion, blood glucose is 71-140 mg/dL and patient is unable to eat a 15 g carb snack, Starting on Tue04/11/23 at 1843, For 1 dose
If patient is able to eat/swallo w, give 15 gram carb snack - Sprite or cranberry juice.
[facility] pantoprazol e (PROTONIX) injection 40 mg 2022-05 00:00: 00 04-16 17:35 :05 No 40mg 40 mg, Slow IV Push, DAILY, First dose on Tue04/11/23 at 1800, Until Discontinu ed [facility] furosemide (LASIX) injection 40 mg 2022-05 23:30: 00 04-11 23:00 :00 No 40mg 40 mg, Slow IV Push, ONCE, 1 dose, On Tue04/11/23 at 1730, Routine [facility] insulin regular human (HUMULIN R) injection 10 Units 2022-05 23:00: 00 04-11 23:05 :00 No 10U 10 Units, IV Push, ONCE, 1 dose, On Tue04/11/23 at 1700, ZEHRA
In dication for insulin: Hyperkalem ia- Please use the Insulin Protocol for Hyperkalem ia order set [facility] dextrose 50 % in water (D50W) injection 50 mL 2022-05 23:00: 00 04-11 23:02 :00 No 50mL 50 mL, Slow IV Push, ONCE, 1 dose, On Tue04/11/23 at 1700, ZEHRA [facility] glucagon (GLUCAGEN DIAGNOSTIC KIT) injection 1 mg 2022-05 22:42: 20 Yes 1mg 1 mg, Intramuscu lar, PRN, Starting on Tue04/11/23 at 1642, Until Discontinu ed, ZEHRA, Blood Glucose < or = 70 mg/dL and patient is NPO, unable to swallow or has mental changes. [facility] cisatracuri um (NIMBEX) 200 mg in NaCl 0.9% (NS) 100 mL infusion 2022-05 17:42: 55 04-14 15:05 :39 No 1ug/kg/ min 1-10 mcg/kg/min ?102.1 kg (3.063-30. 63 mL/hr, rounded to 3.06-30.63 mL/hr), IV Infusion, TITRATE, Train of Four /, Starting on Tue04/11/23 at 1142
In itiate infusion at 1 mcg/kg/min and titrate by 0.25 mcg/kg/min every 5 minutes to 10 minutes as needed within the specified range to maintain desired depth of blockade.& nbsp;&nbsp ;Maximum dose = 10 mcg/kg/min . If desired depth of blockade is not maintained , contact prescriber .
[facility] phenylephri ne 50 mg in NS 250 mL infusion RTU 2022-05 16:54: 59 04-12 01:56 :32 No .5ug/kg /min 0.5-6 mcg/kg/min ?102.1 kg (15.315-18 3.78 mL/hr, rounded to 15.32-183. 78 mL/hr), IV Infusion, TITRATE, MAP Goal > or = 65 mmHg, Starting on Tue04/11/23 at 1054
In itiate infusion at 0.2 mcg/kg/min . &nb sp;Increas e by 0.1 mcg/kg/min every 30 seconds to 5 minutes as needed to reach and maintain goal blood pressure.& nbsp;&nbsp ;Maximum dose = 6 mcg/kg/min . &nb sp;If goal not maintained at maximum allowed dose, contact prescriber .
[facility] midazolam (VERSED) STD 50mg in NaCl 0.9% (NS) 50 mL infusion RTU 2022-05 11:21: 26 04-13 16:44 :47 No 1mg/h 1-10 mg/hr (1-10 mL/hr), IV Infusion, TITRATE, Sedation-R ASS score (-4 to -5), Starting on Tue04/11/23 at 0521
In itiate infusion at 1 mg/hr and titrate by 1 mg/hr every 3 minutes to 10 minutes to goal sedation score. Maximum dose = 10 mg/hr.&nbs p; If goal not maintained at maximum allowed dose, contact prescriber .
[facility] propofoL IV infusion 2022-05 11:21: 19 04-12 21:04 :14 No 5ug/kg/ min 5-50 mcg/kg/min ?102.1 kg (3.063-30. 63 mL/hr, rounded to 3.06-30.63 mL/hr), IV Infusion, TITRATE, Sedation-R ASS score (-4 to -5), Starting on Tue04/11/23 at 0521
In itiate infusion at 5 mcg/kg/min and titrate by 5 mcg/kg/min every 30 seconds to 10 minutes to goal sedation score. Maximum dose = 50 mcg/kg/min . If goal not maintained at maximum allowed dose, contact prescriber . &amp ;nbsp;Tubi ng and unused portions of vials should be discarded after 12 hours.
[facility] phenylephri ne (VAZCULEP) 50 mg in NaCl 0.9% (NS) 250 mL infusion 2022-05 11:18: 10 04-11 16:56 :12 No .5ug/kg /min 0.5-6 mcg/kg/min ?102.1 kg (15.315-18 3.78 mL/hr, rounded to 15.32-183. 78 mL/hr), IV Infusion, TITRATE, MAP Goal > or = 65 mmHg, Starting on Tue04/11/23 at 0518
In itiate infusion at 0.5 mcg/kg/min . &nb sp;Increas e by 0.1 mcg/kg/min every 30 seconds to 5 minutes as needed to reach and maintain goal blood pressure.& nbsp;&nbsp ;Maximum dose = 6 mcg/kg/min . &nb sp;If goal not maintained at maximum allowed dose, contact prescriber .
[facility] dextrose 50 % in water (D50W) injection 25 mL 2022-05 10:43: 35 Yes 25mL 25 mL, Slow IV Push, PRN, Starting on Tue04/11/23 at 0443, Until Discontinu ed, ZEHRA, Blood Glucose < or = 70 mg/dL and patient is NPO, unable to swallow or has mental status changes. [facility] lactated ringers IV infusion 500 mL 2022-05 06:15: 00 04-11 07:43 :58 No 500mL at 999 mL/hr, 500 mL, Intravenou s, ONCE, 1 dose, On Tue04/11/23 at 0015, Routine [facility] albuterol (PROVENTIL) 2.5 mg /3 mL (0.083 %) nebulizer solution 5 mg 2022-05 02:59: 15 04-12 02:03 :01 No 5mg 5 mg, Inhalation , Q1HPRN, Starting on Tue04/10/23 at 2059, Until Tue04/11/23 at 2002, Routine, Shortness of Breath, Wheezing [facility] magnesium sulfate in water 2 gram/50 mL (4 %) infusion 2 g 2022-05 02:45: 00 04-11 03:11 :00 No 2g 2 g, IV Piggyback, Administer over 60 Minutes, ONCE, 1 dose, On Tue04/10/23 at 2045, Routine [facility] cisatracuri um (NIMBEX) injection 10 mg 2022-05 02:30: 00 04-11 01:46 :00 No 10mg 10 mg, Intravenou s, ONCE, 1 dose, On Tue04/10/23 at 2030, Routine [facility] cisatracuri um (NIMBEX) 200 mg in NaCl 0.9% (NS) 100 mL infusion 2022-05 02:21: 39 04-11 16:52 :04 No 1ug/kg/ min 1-10 mcg/kg/min ?102.1 kg (3.063-30. 63 mL/hr, rounded to 3.06-30.63 mL/hr), IV Infusion, TITRATE, Train of Four 06/19, Starting on Tue04/10/23 at 2020
In itiate infusion at 1 mcg/kg/min and titrate by 0.5 mcg/kg/min every 5 minutes to 10 minutes as needed within the specified range to maintain desired depth of blockade.& nbsp;&nbsp ;Maximum dose = 10 mcg/kg/min . If desired depth of blockade is not maintained , contact prescriber .
[facility] 10 mg 2022-05 02:00: 00 Yes 10mg 10 mg, Oral, DAILY, First dose on Tue04/10/23 at 1999, Until Discontinu ed, Routine [facility] methylpredn isolone sod succ (SOLU-MEDRO L) injection 40 mg 2022-05 02:00: 00 04-12 03:59 :00 No 40mg 40 mg, Intravenou s, Q8H, 4 doses, First dose (after last modificati on) on Tue04/10/23 at 2000, Last dose on Tue04/11/23 at 1400, Routine [facility] phenylephri ne (VAZCULEP) 10 mg in NaCl 0.9% (NS) 250 mL infusion 2022-05 22:04: 19 04-11 11:18 :29 No .5ug/kg /min 0.5-6 mcg/kg/min ?102.1 kg (76.575-91 8.9 mL/hr, rounded to 76.58-918. 9 mL/hr), IV Infusion, TITRATE, MAP Goal > or = 65 mmHg, Starting on Tue04/10/23 at 1604
In itiate infusion at 0.5 mcg/kg/min . &nb sp;Increas e by 0.1 mcg/kg/min every 30 seconds to 5 minutes as needed to reach and maintain goal blood pressure.& nbsp;&nbsp ;Maximum dose = 6 mcg/kg/min . &am p;nbsp;If goal not maintained at maximum allowed dose, contact prescriber .
[facility] furosemide (LASIX) injection 40 mg 2022-05 22:00: 00 04-10 21:33 :00 No 40mg 40 mg, Slow IV Push, ONCE, 1 dose, On Tue04/10/23 at 1600, Routine [facility] albuterol (PROVENTIL) 2.5 mg /3 mL (0.083 %) nebulizer solution 5 mg 2022-05 20:48: 54 04-11 01:54 :23 No 5mg 5 mg, Inhalation , Q1HPRN, Starting on Tue04/10/23 at 1448, Until Tue04/10/23 at 1954, Routine, Shortness of Breath, Wheezing, hyperkalem ia [facility] midazolam (VERSED) STD 50mg in NaCl 0.9% (NS) 50 mL infusion RTU 2022-05 18:32: 38 04-11 11:22 :03 No 1mg/h 1-10 mg/hr (1-10 mL/hr), IV Infusion, TITRATE, Sedation-R ASS score (-1 to -2), Starting on Tue04/10/23 at 1232
In itiate infusion at 1 mg/hr and titrate by 1 mg/hr every 3 minutes to 10 minutes to goal sedation score. Maximum dose = 10 mg/hr.&nbs p; If goal not maintained at maximum allowed dose, contact prescriber .
[facility] methylpredn isolone sod succ (SOLU-MEDRO L) injection 40 mg 2022-05 16:15: 00 04-11 01:54 :23 No 40mg 40 mg, Intravenou s, DAILY, 5 doses, First dose on 04/10/23 at 1015, Last dose on [place] 04/14/23 at 0900, Routine [facility] NaCl 0.9% (NS) bolus infusion 1,000 mL 2022-05 16:00: 00 04-10 16:07 :00 No 1000mL at 999 mL/hr, 1,000 mL, IV Piggyback, ONCE, 1 dose, On [place] 04/10/23 at 1000, STAT [facility] NaCl 0.9% (NS) bolus infusion 1,000 mL 2022-05 16:00: 00 04-10 19:15 :00 No 1000mL at 999 mL/hr, 1,000 mL, IV Piggyback, ONCE, 1 dose, On [place] 04/10/23 at 1000, STAT [facility] fentaNYL PF (SUBLIMAZE) STD 2,500 mcg in NaCl 0.9% (NS) 250 mL infusion RTU 2022-05 15:57: 32 04-16 17:34 :23 No 25ug/h 25-200 mcg/hr (2.5-20 mL/hr), IV Infusion, TITRATE, CPOT/Pain Scale Goals Determined by Provider, Starting on Tue04/10/23 at 0957
In itiate infusion at 25 mcg/hr. Titrate by 25 mcg/hr every 1 minute to 15 minutes to identified goal pain and/or sedation scores. Maximum dose = 200 mcg/hr. If goal not maintained at maximum allowed dose, contact prescriber .
[facility] propofoL IV infusion 2022-05 15:56: 51 04-11 11:22 :03 No 5ug/kg/ min 5-50 mcg/kg/min ?102.1 kg (3.063-30. 63 mL/hr, rounded to 3.06-30.63 mL/hr), IV Infusion, TITRATE, Sedation-R ASS score (-1 to -2), Starting on Tue04/10/23 at 0956
In itiate infusion at 5 mcg/kg/min and titrate by 5 mcg/kg/min every 30 seconds to 10 minutes to goal sedation score. Maximum dose = 50 mcg/kg/min . If goal not maintained at maximum allowed dose, contact prescriber . &amp ;nbsp;Tubi ng and unused portions of vials should be discarded after 12 hours.
[facility] sodium chloride 7% (HYPER-MARYA) nebulizer solution 4 mL 2022-05 15:00: 00 04-11 03:37 :05 No 4mL 4 mL, Inhalation , DAILY, First dose on Tue04/10/23 at 0900, Until Discontinu ed, Routine [facility] Sliding Scale Insulin - Lispro (HumaLOG) 2022-05 14:00: 00 04-16 20:06 :28 No Subcutaneo us, Q4H, First dose (after last modificati on) on Tue04/10/23 at 0800, Until Discontinu ed, Routine [facility] ipratropium -albuteroL (DUONEB) 0.5 mg-3 mg(2.5 mg base)/3 mL nebulizer solution 3 mL 2022-05 10:00: 00 04-16 20:04 :53 No 3mL 3 mL, Inhalation , Q4H, First dose on Tue04/10/23 at 0400, Until Discontinu ed, Routine [facility] propofoL IV infusion 2022-05 09:22: 59 04-10 15:57 :58 No 5ug/kg/ min 5-50 mcg/kg/min ?102.1 kg (3.063-30. 63 mL/hr, rounded to 3.06-30.63 mL/hr), IV Infusion, TITRATE, Sedation-R ASS score (0 to -1), Starting on Tue04/10/23 at 0322
In itiate infusion at 5 mcg/kg/min and titrate by 5 mcg/kg/min every 30 seconds to 10 minutes to goal sedation score. Maximum dose = 50 mcg/kg/min . If goal not maintained at maximum allowed dose, contact prescriber . &amp ;nbsp;Tubi ng and unused portions of vials should be discarded after 12 hours.
[facility] azithromyci n (ZITHROMAX) tablet 500 mg 01-19 00:45: 00 01-19 01:14 :00 No 500mg 500 mg, Oral, ONCE, 1 dose, On Tue01/18/23 at 1945, ZEHRA
Re ason for Anti-Infec tive: Documented Infection< br>Documen ashly Infection Site: Respirator y
Durat ion of Therapy: 7 days [facility] furosemide (LASIX) tablet 20 mg 01-19 00:45: 00 01-19 01:14 :00 No 20mg 20 mg, Oral, ONCE, 1 dose, On Tue01/18/23 at 1945, ZEHRA [facility] predniSONE 20 mg tablet 01-19 00:00: 00 01-27 04:59 :00 No [id number] 40mg Take 2 tablets by mouth in the morning for 7 days. [facility] ipratropium -albuteroL (DUONEB) 0.5 mg-3 mg(2.5 mg base)/3 mL nebulizer solution 3 mL 01-18 19:45: 00 01-18 20:30 :00 No 3mL 3 mL, Inhalation , ONCE, 1 dose, On Tue01/18/23 at 1445, ZEHRA [facility] predniSONE (DELTASONE) tablet 40 mg 01-18 19:00: 00 01-18 20:26 :00 No 40mg 40 mg, Oral, ONCE, 1 dose, On Tue01/18/23 at 1400, ZEHRA [facility] albuterol 90 mcg/actuati on inhaler 01-18 00:00: 00 Yes [id number] 2{puff} Inhale 2 Puffs every 4 (four) hours as needed for Wheezing or Shortness of Breath. [facility] benzonatate 200 mg capsule 01-18 00:00: 00 Yes [id number] 200mg Take 1 capsule by mouth 3 (three) times daily as needed for Cough. [facility] azithromyci n 250 mg tablet 01-18 00:00: 00 Yes [id number] 250mg Take 1 tablet by mouth SEE-INSTRU CTIONS. Take 500 mg day 1, then 250 mg days 2 to 5. [facility] furosemide 20 mg tablet 01-18 00:00: 00 Yes [id number] 20mg Take 1 tablet by mouth every morning. [facility] albuterol 90 mcg/actuati on inhaler 01-18 00:00: 00 04-20 00:00 :00 No [id number] 2{puff} Inhale 2 Puffs every 4 (four) hours as needed for Wheezing or Shortness of Breath. [facility] benzonatate 200 mg capsule 01-18 00:00: 00 04-20 00:00 :00 No [id number] 200mg Take 1 capsule by mouth 3 (three) times daily as needed for Cough. [facility] azithromyci n 250 mg tablet 01-18 00:00: 00 04-20 00:00 :00 No [id number] 250mg Take 1 tablet by mouth SEE-INSTRU CTIONS. Take 500 mg day 1, then 250 mg days 2 to 5. [facility] furosemide 20 mg tablet 01-18 00:00: 00 04-20 00:00 :00 No [id number] 20mg Take 1 tablet by mouth every morning. [facility] ketorolac (TORADOL) injection 30 mg 01-11 19:30: 00 01-11 18:34 :00 No 30mg 30 mg, Slow IV Push, ONCE, 1 dose, On Tue01/11/22 at 1430, ZEHRA [facility] morpHINE (4 mg/mL) injection 4 mg 01-11 18:30: 00 01-11 18:34 :00 No 4mg 4 mg, Slow IV Push, ONCE, 1 dose, On Tue01/11/22 at 1330, STAT [facility] ondansetron (ZOFRAN (PF)) injection 4 mg 01-11 17:15: 00 01-11 16:26 :00 No 4mg 4 mg, Slow IV Push, ONCE, 1 dose, On Tue01/11/22 at 1215, ZEHRA [facility] morpHINE (4 mg/mL) injection 4 mg 01-11 16:15: 00 01-11 16:27 :00 No 4mg 4 mg, Slow IV Push, ONCE, 1 dose, On Tue01/11/22 at 1115, STAT [facility] ciprofloxac in HCl 500 mg tablet 01-11 00:00: 00 Yes [id number] 500mg Take 1 tablet by mouth in the morning and 1 tablet in the evening. [facility] ciprofloxac in HCl 500 mg tablet 01-11 00:00: 00 Yes [id number] 500mg Take 1 tablet by mouth in the morning and 1 tablet in the evening. [facility] ciprofloxac in HCl 500 mg tablet 01-11 00:00: 00 Yes [id number] 500mg Take 1 tablet by mouth in the morning and 1 tablet in the evening. [facility] ciprofloxac in HCl 500 mg tablet 01-11 00:00: 00 Yes [id number] 500mg Take 1 tablet by mouth in the morning and 1 tablet in the evening. [facility] ciprofloxac in HCl 500 mg tablet 2021-01-11 00:00: 00 Yes [id number] 500mg Take 1 tablet by mouth in the morning and 1 tablet in the evening. [facility] ciprofloxac in HCl 500 mg tablet 01-11 00:00: 00 Yes [id number] 500mg Take 1 tablet by mouth in the morning and 1 tablet in the evening. [facility] ciprofloxac in HCl 500 mg tablet 2021-01-11 00:00: 00 Yes [id number] 500mg Take 1 tablet by mouth in the morning and 1 tablet in the evening. [facility] ciprofloxac in HCl 500 mg tablet 20201-11 00:00: 00 Yes [id number] 500mg Take 1 tablet by mouth in the morning and 1 tablet in the evening. [facility] ciprofloxac in HCl 500 mg tablet 01-11 00:00: 00 Yes [id number] 500mg Take 1 tablet by mouth in the morning and 1 tablet in the evening. [facility] ciprofloxac in HCl 500 mg tablet 01-11 00:00: 00 04-20 00:00 :00 No [id number] 500mg Take 1 tablet by mouth in the morning and 1 tablet in the evening. [facility] HYDROcodone -acetaminop hen (NORCO) 7.5-325 mg per tablet 01-11 00:00: 00 01-19 04:59 :00 No [id number] 1{tbl} Take 1 tablet by mouth every 8 (eight) hours as needed for Pain for up to 7 days. Indication s: acute pain [facility] predniSONE 20 mg tablet 01-11 00:00: 00 01-17 04:59 :00 No [id number] 20mg Take 1 tablet by mouth in the morning for 5 days. [facility] ketorolac (TORADOL) injection 30 mg 08-19 03:15: 00 08-19 02:57 :00 No 30mg 30 mg, Intramuscu lar, ONCE, 1 dose, On Tue08/18/21 at 2215, ZEHRA [facility] predniSONE 20 mg tablet 08-18 00:00: 00 Yes [id number] TAKE ONE TABLET BY MOUTH DAILY [facility] gabapentin 300 mg capsule 08-18 00:00: 00 Yes [id number] 300mg Take 1 capsule by mouth 3 (three) times daily. [facility] predniSONE 20 mg tablet 08-18 00:00: 00 Yes [id number] TAKE ONE TABLET BY MOUTH DAILY [facility] gabapentin 300 mg capsule 08-18 00:00: 00 Yes [id number] 300mg Take 1 capsule by mouth 3 (three) times daily. [facility] predniSONE 20 mg tablet 2-0 4-05 00:00: 00 Yes [id number] TAKE ONE TABLET BY MOUTH DAILY [facility] gabapentin 300 mg capsule 2-0 4-05 00:00: 00 Yes [id number] 300mg Take 1 capsule by mouth 3 (three) times daily. [facility] predniSONE 20 mg tablet 2-0 4-05 00:00: 00 Yes [id number] TAKE ONE TABLET BY MOUTH DAILY [facility] gabapentin 300 mg capsule 2-0 4-05 00:00: 00 Yes [id number] 300mg Take 1 capsule by mouth 3 (three) times daily. [facility] predniSONE 20 mg tablet 2-0 4-05 00:00: 00 Yes [id number] TAKE ONE TABLET BY MOUTH DAILY [facility] gabapentin 300 mg capsule 2-0 4-05 00:00: 00 Yes [id number] 300mg Take 1 capsule by mouth 3 (three) times daily. [facility] predniSONE 20 mg tablet 2-0 4-05 00:00: 00 Yes [id number] TAKE ONE TABLET BY MOUTH DAILY [facility] gabapentin 300 mg capsule 2-0 4-05 00:00: 00 Yes [id number] 300mg Take 1 capsule by mouth 3 (three) times daily. [facility] predniSONE 20 mg tablet 2-0 4-05 00:00: 00 Yes [id number] TAKE ONE TABLET BY MOUTH DAILY [facility] gabapentin 300 mg capsule 2-0 4-05 00:00: 00 Yes [id number] 300mg Take 1 capsule by mouth 3 (three) times daily. [facility] predniSONE 20 mg tablet 2-0 4-05 00:00: 00 Yes [id number] TAKE ONE TABLET BY MOUTH DAILY [facility] gabapentin 300 mg capsule 2-0 4-05 00:00: 00 Yes [id number] 300mg Take 1 capsule by mouth 3 (three) times daily. [facility] predniSONE 20 mg tablet 2-0 4-05 00:00: 00 Yes [id number] TAKE ONE TABLET BY MOUTH DAILY [facility] gabapentin 300 mg capsule 2-0 4-05 00:00: 00 Yes [id number] 300mg Take 1 capsule by mouth 3 (three) times daily. [facility] predniSONE 20 mg tablet 2021-0 4-05 00:00: 00 Yes [id number] TAKE ONE TABLET BY MOUTH DAILY [facility] gabapentin 300 mg capsule 0 4-05 00:00: 00 Yes [id number] 300mg Take 1 capsule by mouth 3 (three) times daily. [facility] predniSONE 20 mg tablet 0 4-05 00:00: 00 04-20 00:00 :00 No [id number] TAKE ONE TABLET BY MOUTH DAILY [facility] gabapentin 300 mg capsule 0 4- 00:00: 00 04-20 00:00 :00 No [id number] 300mg Take 1 capsule by mouth 3 (three) times daily. [facility] traMADoL 50 mg tablet 0 - 00:00: 00 Yes [id number] 50mg Take 1 tablet by mouth every 6 (six) hours as needed for Pain (scale 7-10). Indication s: acute pain [facility] naproxen (NAPROSYN) 500 mg tablet 0 2-08 00:00: 00 Yes [id number] 500mg Take 1 tablet by mouth 2 (two) times daily with meals. [facility] cyclobenzap rine 10 mg tablet 0 -08 00:00: 00 Yes [id number] 10mg Take 1 tablet by mouth 3 (three) times daily as needed for Muscle Spasms. [facility] traMADoL 50 mg tablet 0 2-08 00:00: 00 Yes [id number] 50mg Take 1 tablet by mouth every 6 (six) hours as needed for Pain (scale 7-10). Indication s: acute pain [facility] naproxen (NAPROSYN) 500 mg tablet 0 2-08 00:00: 00 Yes [id number] 500mg Take 1 tablet by mouth 2 (two) times daily with meals. [facility] cyclobenzap rine 10 mg tablet 2020-0 2-08 00:00: 00 Yes [id number] 10mg Take 1 tablet by mouth 3 (three) times daily as needed for Muscle Spasms. [facility] traMADoL 50 mg tablet 0 208 00:00: 00 Yes [id number] 50mg Take 1 tablet by mouth every 6 (six) hours as needed for Pain (scale 7-10). Indication s: acute pain [facility] naproxen (NAPROSYN) 500 mg tablet 0 2-08 00:00: 00 Yes [id number] 500mg Take 1 tablet by mouth 2 (two) times daily with meals. [facility] cyclobenzap rine 10 mg tablet - 00:00: 00 Yes [id number] 10mg Take 1 tablet by mouth 3 (three) times daily as needed for Muscle Spasms. [facility] traMADoL 50 mg tablet 06-23 00:00: 00 Yes [id number] 50mg Take 1 tablet by mouth every 6 (six) hours as needed for Pain (scale 7-10). Indication s: acute pain [facility] naproxen (NAPROSYN) 500 mg tablet 0 06-23 00:00: 00 Yes [id number] 500mg Take 1 tablet by mouth 2 (two) times daily with meals. [facility] cyclobenzap rine 10 mg tablet 0 06-23 00:00: 00 Yes [id number] 10mg Take 1 tablet by mouth 3 (three) times daily as needed for Muscle Spasms. [facility] traMADoL 50 mg tablet 0 06-23 00:00: 00 Yes [id number] 50mg Take 1 tablet by mouth every 6 (six) hours as needed for Pain (scale 7-10). Indication s: acute pain [facility] naproxen (NAPROSYN) 500 mg tablet 0 2-08 00:00: 00 Yes [id number] 500mg Take 1 tablet by mouth 2 (two) times daily with meals. [facility] cyclobenzap rine 10 mg tablet 0 -08 00:00: 00 Yes [id number] 10mg Take 1 tablet by mouth 3 (three) times daily as needed for Muscle Spasms. [facility] traMADoL 50 mg tablet 0 2-08 00:00: 00 Yes [id number] 50mg Take 1 tablet by mouth every 6 (six) hours as needed for Pain (scale 7-10). Indication s: acute pain [facility] naproxen (NAPROSYN) 500 mg tablet 0 2-08 00:00: 00 Yes [id number] 500mg Take 1 tablet by mouth 2 (two) times daily with meals. [facility] cyclobenzap rine 10 mg tablet 0 2-08 00:00: 00 Yes [id number] 10mg Take 1 tablet by mouth 3 (three) times daily as needed for Muscle Spasms. [facility] traMADoL 50 mg tablet 2020-0 06-23 00:00: 00 Yes [id number] 50mg Take 1 tablet by mouth every 6 (six) hours as needed for Pain (scale 7-10). Indication s: acute pain [facility] naproxen (NAPROSYN) 500 mg tablet 2020-0 06-23 00:00: 00 Yes [id number] 500mg Take 1 tablet by mouth 2 (two) times daily with meals. [facility] cyclobenzap rine 10 mg tablet 2020-0 06-23 00:00: 00 Yes [id number] 10mg Take 1 tablet by mouth 3 (three) times daily as needed for Muscle Spasms. [facility] traMADoL 50 mg tablet 2020-0 06-23 00:00: 00 Yes [id number] 50mg Take 1 tablet by mouth every 6 (six) hours as needed for Pain (scale 7-10). Indication s: acute pain [facility] naproxen (NAPROSYN) 500 mg tablet 2020-0 2-08 00:00: 00 Yes [id number] 500mg Take 1 tablet by mouth 2 (two) times daily with meals. [facility] cyclobenzap rine 10 mg tablet 2020-0 -08 00:00: 00 Yes [id number] 10mg Take 1 tablet by mouth 3 (three) times daily as needed for Muscle Spasms. [facility] traMADoL 50 mg tablet 2020-0 2-08 00:00: 00 Yes [id number] 50mg Take 1 tablet by mouth every 6 (six) hours as needed for Pain (scale 7-10). Indication s: acute pain [facility] naproxen (NAPROSYN) 500 mg tablet 2 00:00: 00 Yes [id number] 500mg Take 1 tablet by mouth 2 (two) times daily with meals. [facility] cyclobenzap rine 10 mg tablet 2- 00:00: 00 Yes [id number] 10mg Take 1 tablet by mouth 3 (three) times daily as needed for Muscle Spasms. [facility] cyclobenzap rine 10 mg tablet 06-23 00:00: 00 Yes [id number] 10mg Take 1 tablet by mouth 3 (three) times daily as needed for Muscle Spasms. [facility] cyclobenzap rine 10 mg tablet 06-23 00:00: 00 Yes [id number] 10mg Take 1 tablet by mouth 3 (three) times daily as needed for Muscle Spasms. [facility] cyclobenzap rine 10 mg tablet 2 00:00: 00 Yes [id number] 10mg Take 1 tablet by mouth 3 (three) times daily as needed for Muscle Spasms. [facility] cyclobenzap rine 10 mg tablet 06-23 00:00: 00 Yes [id number] 10mg Take 1 tablet by mouth 3 (three) times daily as needed for Muscle Spasms. [facility] cyclobenzap rine 10 mg tablet 2 00:00: 00 Yes [id number] 10mg Take 1 tablet by mouth 3 (three) times daily as needed for Muscle Spasms. [facility] cyclobenzap rine 10 mg tablet 2- 00:00: 00 Yes [id number] 10mg Take 1 tablet by mouth 3 (three) times daily as needed for Muscle Spasms. [facility] cyclobenzap rine 10 mg tablet 2- 00:00: 00 Yes [id number] 10mg Take 1 tablet by mouth 3 (three) times daily as needed for Muscle Spasms. [facility] traMADoL 50 mg tablet 2 00:00: 00 Yes [id number] 50mg Take 1 tablet by mouth every 6 (six) hours as needed for Pain (scale 7-10). Indication s: acute pain [facility] naproxen (NAPROSYN) 500 mg tablet 06-23 00:00: 00 Yes [id number] 500mg Take 1 tablet by mouth 2 (two) times daily with meals. [facility] cyclobenzap rine 10 mg tablet 06-23 00:00: 00 Yes [id number] 10mg Take 1 tablet by mouth 3 (three) times daily as needed for Muscle Spasms. [facility] traMADoL 50 mg tablet 06-23 00:00: 00 04-20 00:00 :00 No [id number] 50mg Take 1 tablet by mouth every 6 (six) hours as needed for Pain (scale 7-10). Indication s: acute pain [facility] naproxen (NAPROSYN) 500 mg tablet 06-23 00:00: 00 04-20 00:00 :00 No [id number] 500mg Take 1 tablet by mouth 2 (two) times daily with meals. [facility] Vital Signs Vital Name Observation Time Observation Value Comments S tam Systolic blood pressure 2023-04-20 21:58:00 126 mm[Hg] [facility] Diastolic blood pressure 2023-04-20 21:58:00 71 mm[Hg] [facility] Heart rate 2023-04-20 21:58:00 87 /min [facility] Body temperature 2023-04-20 21:58:00 36.22 Norma [facility] Respiratory rate 2023-04-20 21:58:00 18 /min [facility] Oxygen saturation in Arterial blood by Pulse oximetry 2023-04-20 21:58:00 91 /min [facility] Body height 2023-04-16 20:39:00 167.6 cm [facility] Body weight 2023-04-16 20:39:00 118 kg per bed [facility] BMI 2023-04-16 20:39:00 41.99 kg/m2 [facility] Systolic blood pressure 2023-01-19 01:00:00 176 mm[Hg] [facility] Diastolic blood pressure 2023-01-19 01:00:00 96 mm[Hg] [facility] Heart rate 2023-01-19 01:00:00 76 /min [facility] Respiratory rate 2023-01-19 01:00:00 18 /min [facility] Oxygen saturation in Arterial blood by Pulse oximetry 2023-01-19 01:00:00 95 /min [facility] Body temperature 2023-01-18 18:33:00 37.22 Norma [facility] Body height 2023-01-18 18:33:00 167.6 cm [facility] Body weight 2023-01-18 18:33:00 110.224 kg [facility] BMI 2023-01-18 18:33:00 39.22 kg/m2 [facility] Systolic blood pressure 2022-01-11 19:34:00 116 mm[Hg] [facility] Diastolic blood pressure 2022-01-11 19:34:00 77 mm[Hg] [facility] Heart rate 2022-01-11 19:34:00 78 /min [facility] Respiratory rate 2022-01-11 19:34:00 20 /min [facility] Oxygen saturation in Arterial blood by Pulse oximetry 2022-01-11 19:34:00 99 /min [facility] Body temperature 2022-01-11 15:35:00 36.67 Norma [facility] Body weight 2022-01-11 15:35:00 104.327 kg [facility] BMI 2022-01-11 15:35:00 37.12 kg/m2 [facility] Systolic blood pressure 2021-08-19 04:28:52 143 mm[Hg] [facility] Diastolic blood pressure 2021-08-19 04:28:52 83 mm[Hg] [facility] Heart rate 2021-08-19 04:28:52 95 /min [facility] Respiratory rate 2021-08-19 04:28:52 20 /min [facility] Oxygen saturation in Arterial blood by Pulse oximetry 2021-08-19 04:28:52 97 /min [facility] Body temperature 2021-08-18 23:50:00 37.83 Norma [facility] Body height 2021-08-18 23:50:00 167.6 cm [facility] Body weight 2021-08-18 23:50:00 104.327 kg [facility] BMI 2021-08-18 23:50:00 37.12 kg/m2 [facility] Procedures Procedure Date / Time Performed Performing Clinician Source POCT GLUCOSE (AUTOMATED) 2023-04-20 22:00:00 Kristina Reynolds [facility] POCT GLUCOSE (AUTOMATED) 2023-04-20 17:28:00 Kristina Reynoldsshahida [facility] POCT GLUCOSE (AUTOMATED) 2023-04-20 14:36:00 Kristina Reynoldsshahida [facility] CBC WITHOUT DIFF 2023-04-20 10:36:00 Ling Quinn [facility] POCT GLUCOSE (AUTOMATED) 2023-04-20 03:10:00 Kristina Reynoldsshahida [facility] POCT GLUCOSE (AUTOMATED) 2023-04-20 00:46:00 Kristina Reynoldsshahida [facility] POCT GLUCOSE (AUTOMATED) 2023-04-19 17:47:00 Kristina Reynolds [facility] MAGNESIUM 2023-04-19 10:10:00 Ling Quinn [facility] BASIC METABOLIC PANEL (NA, K, CL, CO2, GLUCOSE, BUN, CREATININE, CA) 2023-04-19 10:10:00 Ling Quinn [facility] CBC WITH DIFF 2023-04-19 10:10:00 Ling Quinn [facility] POCT GLUCOSE (AUTOMATED) 2023-04-19 02:41:00 Kristina Reynolds [facility] POCT GLUCOSE (AUTOMATED) 2023-04-18 23:45:00 Kristina Reynolds [facility] MAGNESIUM 2023-04-18 16:45:00 Scott Ingram [facility] BASIC METABOLIC PANEL (NA, K, CL, CO2, GLUCOSE, BUN, CREATININE, CA) 2023-04-18 16:45:00 Francisco J Ingram [facility] CBC WITHOUT DIFF 2023-04-18 16:45:00 Gregor Ingram [facility] POCT GLUCOSE (AUTOMATED) 2023-04-18 15:45[facility]00 [facility] 2023-04-18 03:28:00 Kristina Reynolds [facility] POCT GLUCOSE (AUTOMATED) 2023-04-17 23:15:00 Kristina Reynolds [facility] POCT GLUCOSE (AUTOMATED) 2023-04-17 18:30:00 Kristina Reynolds [facility] POCT GLUCOSE (AUTOMATED) 2023-04-17 15:34[facility]-17 12:14:00 Scott Ingram [facility] BASIC METABOLIC PANEL (NA, K, CL, CO2, GLUCOSE, BUN, CREATININE, CA) 2023-04-17 12:14:00 Francisco J Ingram [facility] CBC WITHOUT DIFF 2023-04-17 12:14:00 Gregor Ingram [facility] HB ABO GROUPING 2023-04-17 12:14:00 Lolis Correa [facility] N-TERMINAL PRO-BNP 2023-04-17 12:14:00 Francisco J Ingram [facility] POCT GLUCOSE (AUTOMATED) 2023-04-17 01:45:00 Kristina Reynoldsshahida [facility] POCT GLUCOSE (AUTOMATED) 2023-04-16 22:44[facility]00 [facility]ATED) 2023-04-16 18:04:00 Lainey Jacob [facility] POCT GLUCOSE (AUTOMATED) 2023-04-16 14:49:00 Lainey Jacob [facility] POCT GLUCOSE (AUTOMATED) 2023-04-16 09:59:00 Lainey Jacob [facility] MAGNESIUM 2023-04-16 09:55:00 Greg Neves [facility] BASIC METABOLIC PANEL (NA, K, CL, CO2, GLUCOSE, BUN, CREATININE, CA) 2023-04-16 09:55:00 Juana Bower [facility] CBC WITH DIFF 2023-04-16 09:55:00 [facility] POCT GLUCOSE (AUTOMATED) 2023-04-16 07:03:00 Lainey Jacob [facility] BASIC METABOLIC PANEL (NA, K, CL, CO2, GLUCOSE, BUN, CREATININE, CA) 2023-04-16 02:06:00 Juana Bower [facility] POCT GLUCOSE (AUTOMATED) 2023-04-16 01:49:00 Lainey Jacob [facility] MAGNESIUM 2023-04-15 23:31:00 Greg Neves [facility] BASIC METABOLIC PANEL (NA, K, CL, CO2, GLUCOSE, BUN, CREATININE, CA) 2023-04-15 23:31:00 Juana Bower [facility] XR CHEST 1 VW 2023-04-15 20:50:00 Sharif Monae U [facility] XR KUB 2023-04-15 20:50:00 Juana Bower [facility] XR CHEST 1 VW 2023-04-15 17:00:00 [facility] POCT GLUCOSE (AUTOMATED) 2023-04-15 14:13:00 Lainey Jacob [facility] MAGNESIUM 2023-04-15 09:38:00 Greg Neves [facility] BASIC METABOLIC PANEL (NA, K, CL, CO2, GLUCOSE, BUN, CREATININE, CA) 2023-04-15 09:38:00 Juana Bower [facility] CBC WITH DIFF 2023-04-15 09:38:00 [facility] POCT GLUCOSE (AUTOMATED) 2023-04-15 09:36:00 Lainey Jacob [facility] POCT GLUCOSE (AUTOMATED) 2023-04-15 05:50:00 Lainey Jacob [facility] AC PANEL 21 + LACTIC ACID 2023-04-15 02:08:00 Spencer Medina [facility] POCT GLUCOSE (AUTOMATED) 2023-04-15 02:07:00 Lainey Jacob [facility] PHOSPHORUS 2023-04-14 23:54:00 Sathish [facility] MAGNESIUM 2023-04-14 21:02:00 Greg Neves [facility] BASIC METABOLIC PANEL (NA, K, CL, CO2, GLUCOSE, BUN, CREATININE, CA) 2023-04-14 21:02:[address] [facility] EKG-12 LEAD 2023-04-14 18:09:28 Jair Reynolds [facility] POCT GLUCOSE (AUTOMATED) 2023-04-14 18:05:00 Lainey Jacob [facility] AC PANEL 21 + LACTIC ACID 2023-04-14 14:54:00 Sathish Juana [facility] SPUTUM CULTURE 2023-04-14 14:45:00 Bear Riggins [facility] PHOSPHORUS 2023-04-14 09:42:00 Juana Bower [facility] LIPASE 2023-04-14 09:42:00 Juana Bower [facility] MAGNESIUM 2023-04-14 09:42:00 Greg Neves [facility] BASIC METABOLIC PANEL (NA, K, CL, CO2, GLUCOSE, BUN, CREATININE, CA) 2023-04-14 09:42:[address] [facility] CBC WITH DIFF 2023-04-14 09:42:00 Juana Bower [facility] POCT GLUCOSE (AUTOMATED) 2023-04-14 09:41:00 Lainey Jacob [facility] POCT GLUCOSE (AUTOMATED) 2023-04-14 06:11:00 Lainey Jacob [facility] AC PANEL 21 + LACTIC ACID 2023-04-14 02:35:00 Spencer Medina [facility] XR CHEST 1 VW 2023-04-14 02:34:00 Bear Riggins [facility] XR KUB 2023-04-14 02:34:00 Bear Riggins [facility] POCT GLUCOSE (AUTOMATED) 2023-04-14 02:34:00 Lainey Jacob [facility] POCT GLUCOSE (AUTOMATED) 2023-04-14 02:33:00 Lainey Jacob [facility] MAGNESIUM 2023-04-13 22:33:00 Greg Neves [facility] FERRITIN SERUM 2023-04-13 22:33:00 Sheryl Durant [facility] LIPID PANEL (19501)(TOTAL CHOLESTEROL, TRIGLYCERIDES, HDL) 2023-04-13 22:33:00 Bear Riggins [facility] LOW-DENSITY LIPOPROTEIN, DIRECT 2023-04-13 22:33:00 Bear Riggins [facility] POCT GLUCOSE (AUTOMATED) 2023-04-13 22:15:00 Lainey Jacob [facility] BLOOD CULTURE SCREEN 2023-04-13 20:24:00 Elvie Bower [facility] BLOOD CULTURE SCREEN 2023-04-13 20:23:00 Elvie Bower [facility] POCT GLUCOSE (AUTOMATED) 2023-04-13 17:29:00 Lainey Jacob [facility] AC PANEL 21 + LACTIC ACID 2023-04-13 16:32:00 Spencer Medina [facility] POCT GLUCOSE (AUTOMATED) 2023-04-13 13:40:00 Lainey Jacob [facility] PHOSPHORUS 2023-04-13 09:50:00 [facility] MAGNESIUM 2023-04-13 09:50:00 Greg Neves [facility] BASIC METABOLIC PANEL (NA, K, CL, CO2, GLUCOSE, BUN, CREATININE, CA) 2023-04-13 09:50:00 Juana Bower [facility] CBC WITH DIFF 2023-04-13 09:50:00 Juana Bower [facility] AC PANEL 21 + LACTIC ACID 2023-04-13 09:50:00 Spencer Medina [facility] POCT GLUCOSE (AUTOMATED) 2023-04-13 09:48:00 Lainey Jacob [facility] BASIC METABOLIC PANEL (NA, K, CL, CO2, GLUCOSE, BUN, CREATININE, CA) 2023-04-13 05:50:00 Greg Neves Hardik [facility] POCT GLUCOSE (AUTOMATED) 2023-04-13 05:49:00 Lainey Jacob [facility] AC PANEL 21 + LACTIC ACID 2023-04-13 04:21:00 Spencer Medina [facility] BASIC METABOLIC PANEL (NA, K, CL, CO2, GLUCOSE, BUN, CREATININE, CA) 2023-04-13 02:24:00 Greg Neves [facility] CBC WITHOUT DIFF 2023-04-13 02:24:00 Juana Bower [facility] POCT GLUCOSE (AUTOMATED) 2023-04-13 02:19:00 Lainey Jacob [facility] POCT GLUCOSE (AUTOMATED) 2023-04-12 21:44:00 Lainey Jacob [facility] MAGNESIUM 2023-04-12 21:37:00 Greg Neves [facility] BASIC METABOLIC PANEL (NA, K, CL, CO2, GLUCOSE, BUN, CREATININE, CA) 2023-04-12 21:37:00 Greg Neves Hardik [facility] AC PANEL 20 + LACTIC ACID 2023-04-12 20:40:[address] [facility] CBC WITH DIFF 2023-04-12 20:39:00 Greg Neves [facility] BASIC METABOLIC PANEL (NA, K, CL, CO2, GLUCOSE, BUN, CREATININE, CA) 2023-04-12 18:17:00 Greg Neves [facility] POCT GLUCOSE (AUTOMATED) 2023-04-12 17:38:00 Lainey Jacob [facility] CBC WITH DIFF 2023-04-12 14:02:00 [facility] POCT GLUCOSE (AUTOMATED) 2023-04-12 13:33:00 Lainey Jacob [facility] PREPARE PACKED RBC 2023-04-12 13:28:16 Greg Neves [facility] MAGNESIUM 2023-04-12 13:22:00 [facility] BASIC METABOLIC PANEL (NA, K, CL, CO2, GLUCOSE, BUN, CREATININE, CA) 2023-04-12 13:22:00 Juana Bower [facility] XR CHEST 1 VW 2023-04-12 11:40:00 Greg Neves Hardik [facility] ABORH CONFIRMATION (LAB ONLY) 2023-04-12 11:31:00 Mohamud Jacob [facility] HB ABO GROUPING 2023-04-12 11:00:00 Greg Neves [facility] AC PANEL 20 + LACTIC ACID 2023-04-12 09:46:00 Gomez Smalls [facility] PHOSPHORUS 2023-04-12 09:43:00 Greg Neves [facility] MAGNESIUM 2023-04-12 09:43:00 Greg Neves [facility] BASIC METABOLIC PANEL (NA, K, CL, CO2, GLUCOSE, BUN, CREATININE, CA) 2023-04-12 09:43:00 Greg Neves [facility] CBC WITH DIFF 2023-04-12 09:43:00 Greg Neves Hardik [facility] POCT GLUCOSE (AUTOMATED) 2023-04-12 09:40:00 Lainey Jacob [facility] PHOSPHORUS 2023-04-12 06:22:00 Greg Neves [facility] MAGNESIUM 2023-04-12 06:22:00 Greg Neves [facility] BASIC METABOLIC PANEL (NA, K, CL, CO2, GLUCOSE, BUN, CREATININE, CA) 2023-04-12 06:22:00 Greg Neves [facility] POCT GLUCOSE (AUTOMATED) 2023-04-12 06:21:00 Lainey Jacob [facility] POCT GLUCOSE (AUTOMATED) 2023-04-12 02:28:00 Lainey Jacob [facility] AC PANEL 20 + LACTIC ACID 2023-04-12 01:14:00 [facility] 2023-04-12 00:31:00 Greg Neves [facility] MAGNESIUM 2023-04-12 00:31:00 Greg Neves [facility] BASIC METABOLIC PANEL (NA, K, CL, CO2, GLUCOSE, BUN, CREATININE, CA) 2023-04-12 00:31:00 Greg Neves Hardik [facility] IRON PANEL 2023-04-12 00:31:00 Juana Bower [facility] POCT GLUCOSE (AUTOMATED) 2023-04-11 23:47:00 Lainey Jacob [facility] POCT GLUCOSE (AUTOMATED) 2023-04-11 22:59:00 Lainey Jacob [facility] PHOSPHORUS 2023-04-11 21:15:00 Greg Neves [facility] MAGNESIUM 2023-04-11 21:15:00 Greg Neves [facility] BASIC METABOLIC PANEL (NA, K, CL, CO2, GLUCOSE, BUN, CREATININE, CA) 2023-04-11 21:15:00 Greg Neves [facility] AC PANEL 20 + LACTIC ACID 2023-04-11 21:15:00 Gomez Smalls [facility] PHOSPHORUS 2023-04-11 17:36:00 Greg Neves [facility] MAGNESIUM 2023-04-11 17:36:00 Greg Neves [facility] BASIC METABOLIC PANEL (NA, K, CL, CO2, GLUCOSE, BUN, CREATININE, CA) 2023-04-11 17:36:00 Greg Neves [facility] AC PANEL 20 + LACTIC ACID 2023-04-11 17:36:00 Gomez Smalls [facility] PHOSPHORUS 2023-04-11 14:26:00 Greg Neves [facility] MAGNESIUM 2023-04-11 14:26:00 Greg Neves Hardik [facility] BASIC METABOLIC PANEL (NA, K, CL, CO2, GLUCOSE, BUN, CREATININE, CA) 2023-04-11 14:26:00 [facility] + LACTIC ACID 2023-04-11 14:26:00 Gomez Smalls [facility] XR CHEST 1 VW 2023-04-11 13:47:50 Spencer Medina [facility] CT CHEST PULMONARY ANGIOGRAM 2023-04-11 13:47:27 Spencer Medina [facility] PHOSPHORUS 2023-04-11 09:38:00 Greg Neves [facility] MAGNESIUM 2023-04-11 09:38:00 Greg Neves Hardik [facility] BASIC METABOLIC PANEL (NA, K, CL, CO2, GLUCOSE, BUN, CREATININE, CA) 2023-04-11 09:38:00 Greg Neves [facility] CBC WITH DIFF 2023-04-11 09:38:00 Greg Neves [facility] AC PANEL 20 + LACTIC ACID 2023-04-11 09:38:00 Gomez Smalls [facility] POCT GLUCOSE (AUTOMATED) 2023-04-11 09:37:00 Lainey Jacob [facility] POCT GLUCOSE (AUTOMATED) 2023-04-11 09:36:00 Lainey Jacob [facility] AC PANEL 20 + LACTIC ACID 2023-04-11 06:17:00 Balbir Muñoz soumya [facility] POCT GLUCOSE (AUTOMATED) 2023-04-11 05:07:00 Lainey Jacob [facility] AC PANEL 20 + LACTIC ACID 2023-04-11 05:05:00 Sathish Juana [facility] AC PANEL 20 + LACTIC ACID 2023-04-11 04:05:00 Balbir Muñoz [facility] BASIC METABOLIC PANEL (NA, K, CL, CO2, GLUCOSE, BUN, CREATININE, CA) 2023-04-11 02:56:00 Juana Bower [facility] AC PANEL 20 + LACTIC ACID 2023-04-11 02:56:00 Balbir Muñoz [facility] POCT GLUCOSE (AUTOMATED) 2023-04-11 02:28:00 Lainey Jacob [facility] AC PANEL 20 + LACTIC ACID 2023-04-11 01:46:00 Balbir Muñoz [facility] BASIC METABOLIC PANEL (NA, K, CL, CO2, GLUCOSE, BUN, CREATININE, CA) 2023-04-10 23:17:00 Josef Louis [facility] AC PANEL 20 + LACTIC ACID 2023-04-10 22:30:00 Aiden Tomlin [facility] RESPIRATORY PANEL BY PCR 2023-04-10 21:44:00 Sa noble Tomlin [facility] POCT GLUCOSE (AUTOMATED) 2023-04-10 21:39:00 Lainey Jacob [facility] BASIC METABOLIC PANEL (NA, K, CL, CO2, GLUCOSE, BUN, CREATININE, CA) 2023-04-10 20:37:00 Balbir Muñoz [facility] AC PANEL 20 + LACTIC ACID 2023-04-10 20:24:00 Balbir Muñoz [facility] POCT GLUCOSE (AUTOMATED) 2023-04-10 14:59:00 Lainey Jacob [facility] ABG+COOX+NA+K+GLU+CA2+ 2023-04-10 14:35:00 Meghan Jacob [facility] MAGNESIUM 2023-04-10 10:52:00 Spencer Medina [facility] COMP. METABOLIC PANEL ([id number]) 2023-04-10 10:52:00 [facility] CBC WITH DIFF 2023-04-10 10:52:00 Spencer Medina [facility] GLYCOSYLATED HEMOGLOBIN (A1C) 2023-04-10 10:52:00 Adam [facility] POCT GLUCOSE (AUTOMATED) 2023-04-10 10:52:00 Lainey Jacob [facility] AC PANEL 21 + LACTIC ACID 2023-04-10 09:30:00 Greg Neves [facility] BLOOD CULTURE SCREEN 2023-04-10 09:25:00 Adam [facility] URINALYSIS 2023-04-10 09:21:00 Spencer Medina [facility] URINE CULTURE 2023-04-10 09:21:00 Spencer Medina [facility] SPUTUM CULTURE 2023-04-10 09:21:00 Greg Neves Hardik [facility] GALV ONLY - INFLUENZA A B RSV PCR 2023-04-10 09:21:00 Greg Neves Hardik [facility] MRSA / MSSA SCREEN BY PCR, [place] 2023-04-10 09:21:00 Greg Neves Hardik [facility] LEGIONELLA AND STREPTOCOCCUS PNEUMONIAE URINARY ANTIGENS 2023-04-10 09:21:00 Greg Neves [facility] BLOOD CULTURE SCREEN 2023-04-10 09:14:00 Adam [facility] XR CHEST 1 VW 2023-04-10 09:08:00 Greg Neves [facility] XR KUB 2023-04-10 09:08:00 [facility] 2023-01-19 00:43:35 Mayco [facility] TROPONIN I 2023-01-18 23:17:00 Mayco Del Rio [facility] LIPASE 2023-01-18 20:22:00 Mayco Del Rio [facility] TROPONIN I 2023-01-18 20:22:00 Mayco Del Rio [facility] COMP. METABOLIC PANEL ([id number]) 2023-01-18 20:22:00 Mayco Del Rio [facility] CBC WITH DIFF 2023-01-18 20:22:00 Mayco Del Rio [facility] N-TERMINAL PRO-BNP 2023-01-18 20:22:00 Mayco Del Rio [facility] COVID-19 (ID NOW RAPID TESTING) 2023-01-18 20:22:00 Mayco Del Rio [facility] XR CHEST 2 VW 2023-01-18 19:19:28 Mayco Del Rio [facility] CONSENT/REFUSAL FOR DIAGNOSIS AND TREATMENT 2023-01-18 18:28:56 Doctor Unassigned, [place] [facility] ASSIGNMENT OF BENEFITS 2022-10-05 20:29:02 Docto r Unassigned, [place] [facility] REFERRAL- REQUEST/RESPONSE 2022-09-09 05:01:00 Doctor Unassigned, [place] [facility] URINALYSIS 2022-01-11 18:12:00 Blaise Salas [facility] POCT TEST 2022-01-11 18:12:00 Evaristo Salas [facility] CT LUMBAR SPINE WO CONTRAST 2022-01-11 16:42:35 Blaise Salas [facility] CT THORACIC SPINE WO CONTRAST 2022-01-11 16:42:35 Blaise Salas [facility] COMP. METABOLIC PANEL (05271) 2022-01-11 16:27:00 Blaise Salas [facility] CBC WITH DIFF 2022-01-11 16:27:00 Blaise Salas [facility] ACTIVATED PARTIAL THRMPLAS [place] 2022-01-11 16:27:00 Blaise Salas [facility] CONSENT/REFUSAL FOR DIAGNOSIS AND TREATMENT 2022-01-11 15:22:37 Doctor Unassigned, [place] [facility] URINALYSIS 2021-08-19 03:07:00 Patrick Singh [facility] NOTICE OF PRIVACY PRACTICES 2021-08-18 23:46:31 Doctor Unassigned, [place] [facility] CONSENT/REFUSAL FOR DIAGNOSIS AND TREATMENT 2021-08-18 23:46:18 Doctor Unassigned, [place] [facility] Encounters Start Date/Time End Date/Time Encounter Type Admission Type Attending Clinicians Care Facility Care Department Encounter ID Source 2023-08-03 10:30:00 2023-08-03 10:30:00 Outpatient HIREN MCKEON [facility] [place] [id number] [facility] 2023-04-22 00:00:00 2023-04-22 00:00:00 Ling Byrnes [email or web address] 1.2840.114 350.1.13.10 4.2.7.2.686 [id number] [facility] 2023-04-21 00:00:00 2023-04-21 00:00:00 Transition of Care Apurva Ba 1.2840.114 350.1.13.10 4.2.7.2.686 [id number] [facility] 2023-04-10 01:46:00 2023-04-20 18:38:00 Inpatient U DAVINA BOYD [facility] [id number] [facility] 2023-04-10 01:46:00 2023-04-20 18:38:00 Hospital Encounter Mohamud Jacob Gulshan Khowaja, [place] [facility] 1.2840.114 350.1.13.10 4.2.7.2.686 [id number] [facility] 2023-04-18 00:00:00 2023-04-18 00:00:00 Telephone Josef Galvez [facility] [[email or web address] 1.2840.114 350.1.13.10 4.2.7.2.686 [id number] [facility] 2023-01-18 13:35:00 2023-01-18 20:19:00 Emergency X MAYCO DEL RIO [facility] [[email or web address]] ERT [id number] [facility] 2023-01-18 13:35:00 2023-01-18 20:19:00 Emergency Mayco Del Rio [facility] 1.84.114 350.1.13.10 4.2.7.2.686 [id number] [facility] 2022-11-05 14:30:00 2022-11-05 15:15:00 Ancillary Visit Shefali Whitney Craig L [facility] 1.84.114 350.1.13.10 4.2.7.2.686 [id number] [facility] 2022-11-05 14:30:00 2022-11-05 14:30:00 Outpatient R GARRETT HERRERA [facility] [place] [id number] [facility] 2022 13:45:00 2022 15:05:10 Ancillary Visit Mayco Greer Craig L [facility] 1.840.114 350.1.13.10 4.2.7.2.686 [id number] [facility] 2022-10-26 13:45:00 2022-10-26 15:21:35 Outpatient R GARRETT HERRERA [facility] [place] [id number] [facility] 2022-10-26 13:45:00 2022-10-26 14:30:00 Ancillary Visit Sandra Clarke Craig L [facility] 1.840.114 350.1.13.10 4.2.7.2.686 [id number] [facility] 2022-10-22 15:15:00 2022-10-22 16:00:00 Ancillary Visit Shefali Whitney Craig L [facility] 1.2.840.114 350.1.13.10 4.2.7.2.686 [id number] [facility] 2022-10-13 14:30:00 2022-10-13 14:30:00 Outpatient R GARERTT HERRERA [facility] [place] [id number] [facility] 2022-10-05 15:15:00 2022-10-05 16:22:29 Ancillary Visit Fabiana Sanderson Craig L [facility] 1.2.840.114 350.1.13.10 4.2.7.2.686 [id number] [facility] 2022-10-05 00:00:00 2022-10-05 00:00:00 Orders Only Doctor Unassigned, [place] [facility] 1.2.840.114 350.1.13.10 4.2.7.2.686 [id number] [facility] 2022-09-09 00:00:00 2022-09-09 00:00:00 Orders Only Doctor Unassigned, [place] [facility] 1.2.840.114 350.1.13.10 4.2.7.2.686 [id number] [facility] 2022-01-11 10:36:00 2022-01-11 14:53:00 Emergency X BLAISE SALAS [facility] [[email or web address]] ERT [id number] [facility] 2022-01-11 10:36:00 2022-01-11 14:53:00 Emergency Blaise Salas [facility] 1.2.840.114 350.1.13.10 4.2.7.2.686 [id number] [facility] 2021-08-18 19:42:00 2021-08-19 00:05:00 Emergency X PATRICK SINGH [facility] [[email or web address]] ERT [id number] [facility] 2021-08-18 19:42:00 2021-08-19 00:05:00 Emergency Patrick Singh [facility] 1.2.840.114 350.1.13.10 4.2.7.2.686 [id number] [facility] 2021-04-13 09:40:00 2021-04-13 09:40:00 Outpatient Paras Ziegler [facility] [id number] [facility] 2020-06-23 11:08:00 2020-06-23 11:08:00 Emergency X [facility] [[email or web address]] ERT [id number] [facility] Results Test Description Test Time Test Comments Results Result Co mments Source [facility] GLUCOSE (AUTOMATED)2023-04-20 17:29:39* Test Item Value Reference Range Interpretation Comme nts POCT GLU (test code = 4172050275) 154 mg/dL 70-110 H Lab Interpretation (test cod e = 14943-1) Abnormal [facility] GLUCOSE (AUTOMATED)2023-04-20 14:37:51* Test Item Value Reference Range Interpretation Comme nts POCT GLU (test code = 2566558050) 84 mg/dL 70-110 Lab Interpretation (test cod e = 39902-4) Normal [facility] GLUCOSE (AUTOMATED)2023-04-20 03:10:53* Test Item Value Reference Range Interpretation Comme nts POCT GLU (test code = 9347774486) 114 mg/dL 70-110 H Lab Interpretation (test cod e = 41744-8) Abnormal [facility] GLUCOSE (AUTOMATED)2023-04-20 00:46:53* Test Item Value Reference Range Interpretation Comme nts POCT GLU (test code = 5834610768) 120 mg/dL 70-110 H Lab Interpretation (test cod e = 41693-8) Abnormal [facility] GLUCOSE (AUTOMATED)2023-04-19 17:48:46* Test Item Value Reference Range Interpretation Comme nts POCT GLU (test code = 2586418702) 215 mg/dL 70-110 H Lab Interpretation (test cod e = 80902-4) Abnormal [facility] GLUCOSE (AUTOMATED)2023-04-19 02:42:44* Test Item Value Reference Range Interpretation Comme nts POCT GLU (test code = 1412786527) 136 mg/dL 70-110 H Notified Provide r Lab Interpretation (test code = 44736-5) Abnormal [facility] GLUCOSE (AUTOMATED)2023-04-18 23:46:41* Test Item Value Reference Range Interpretation Comme nts POCT GLU (test code = 1081465015) 131 mg/dL 70-110 H Lab Interpretation (test cod e = 40370-9) Abnormal [facility] [place] [place] CULTURE [id number] 22:02:05* Test Item Value Reference Range Interpretation Comme nts Blood Culture-Aerobic (test code = 19163-6) No organisms isolated No growth Previous preliminary verified result was Culture In Progress on 04/13/2023 at 1901 CSTPrevious preliminary verified result was No growth at 24 hours on 04/14/2023 at 1601 CSTPrevious preliminary verified result was No growth at 48 hours on 04/15/2023 at 1601 CSTPrevious preliminary verified result was No growth at 72 hours on 04/16/2023 at 1602 CORPORATE DEVELOPMENT ANALYST Blood Culture-Anaerobic (test code = 32462-3) No organisms isolated No growth Previous preliminary verified result was Culture In Progress on 04/13/2023 at 1901 CSTPrevious preliminary verified result was No growth at 24 hours on 04/14/2023 at 1601 CSTPrevious preliminary verified result was No growth at 48 hours on 04/15/2023 at 1601 CSTPrevious preliminary verified result was No growth at 72 hours on 04/16/2023 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 (test code = 28941-7) Normal [facility] [place] [place] CULTURE [id number] 22:02:05* Test Item Value Reference Range Interpretation Comme nts Blood Culture-Aerobic (test code = 12244-3) No organisms isolated No growth Previous preliminary verified result was Culture In Progress on 04/13/2023 at 1901 CSTPrevious preliminary verified result was No growth at 24 hours on 04/14/2023 at 1601 CSTPrevious preliminary verified result was No growth at 48 hours on 04/15/2023 at 1601 CSTPrevious preliminary verified result was No growth at 72 hours on 04/16/2023 at 1602 CORPORATE DEVELOPMENT ANALYST Blood Culture-Anaerobic (test code = 83226-1) No organisms isolated No growth Previous preliminary verified result was Culture In Progress on 04/13/2023 at 1901 CSTPrevious preliminary verified result was No growth at 24 hours on 04/14/2023 at 1601 CSTPrevious preliminary verified result was No growth at 48 hours on 04/15/2023 at 1601 CSTPrevious preliminary verified result was No growth at 72 hours on 04/16/2023 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 (test code = 98431-9) Normal [facility] METABOLIC PANEL (NA, K, CL, CO2, GLUCOSE, BUN, CREATININE, CA)2023-04-18 17:10:51* Test Item Value Reference Range Interpretation Comme nts NA (test code = 9189917017) 138 mmol/L 135-145 K (test code = 7227460430) 3.8 mmol/L 3.5-5.0 CL (test code = 4605214102) 102 mmol/L 98-108 CO2 TOTAL (test code = 3681085742) 28 mmol/L 23-31 AGAP (test code = 3045192248) 8 2-16 BUN (test code = 0252239661) 24 mg/dL 7-23 H GLUCOSE (test code = 4969201593) 142 mg/dL 70-110 H CREATININE (test code = 3955655999) 0.87 mg/dL 0.50-1.04 CALCIUM (test code = 7164398993) 9.1 mg/dL 8.6-10.6 eGFR (test code = 15001-4) 81.8 mL/min/1.73m2 CKD-EPI eGFR (2020). Assuming creatinine has been stable day-to-day for at least three months, the eGFR indicates Category G2 (60 - 89 mL/min/1.73 m2) Lab Interpretation (test code = 54806-3) [facility]normal [facility] 17:10:51* Test Item Value Reference Range Interpretation Comme nts MAGNESIUM (test code = 6883754078) 2.1 mg/dL 1.7-2.4 Lab Interpretation (test cod e = 81079-1) Normal [facility] WITHOUT [id number] 17:01:50* Test Item Value Reference Range Interpretation Comme nts WBC (test code = 6690-2) 17.37 See_Comment H [Automated message] The system which generated this result transmitted reference range: 4.30 - 11.10 10*3/?L. The reference range was not used to interpret this result as normal/abnormal. RBC (test code = 789-8) 3.60 See_Comment L [Automated message] The system which generated this result transmitted reference range: 3.93 - 5.25 10*6/?L. The reference range was not used to interpret this result as normal/abnormal. HGB (test code = 718-7) 8.2 g/dL 11.6-15.0 L HCT (test code = 4544-3) 27.2 % 35.7-45.2 L MCH (test code = 785-6) 22.8 pg 25.9-32.8 L MCV (test code = 787-2) 75.6 fL 80.6-95.5 L MCHC (test code = 786-4) 30.1 g/dL 31.6-35.1 L PLT (test code = 777-3) 328 See_Comment [Automated message] The system which generated this result transmitted reference range: 166 - 358 10*3/?L. The reference range was not used to interpret this result as normal/abnormal. MPV (test code = 69134-0) 10.1 fL 9.5-12.9 RDW-CV (test code = 788-0) 18.2 % 12.0-15.5 H RDW-SD (test code = 99477-9) 48.7 fL 39.0-49.9 NRBC x10^3 (test code = 3534519867) 0.05 See_Comment [Automated messa ge] The system which generated this result transmitted reference range: 10*3/?L. The reference range was not used to interpret this result as normal/abnormal. NRBC/100 WBC (test code = 2123586407) 0.3 See_Comment [Automated messa ge] The system which generated this result transmitted reference range: 0.0 - 10.0 /100 WBCs. The reference range was not used to interpret this result as normal/abnormal. IPF % (test code = 8451573901) Lab Interpretation (test code = 86536-1) Abnormal [facility] GLUCOSE (AUTOMATED)2023-04-18 15:46:32* Test Item Value Reference Range Interpretation Comme nts POCT GLU (test code = 0737088064) 184 mg/dL 70-110 H Lab Interpretation (test cod e = 59544-9) Abnormal [facility] GLUCOSE (AUTOMATED)2023-04-18 03:34:32* Test Item Value Reference Range Interpretation Comme nts POCT GLU (test code = 1445357943) 159 mg/dL 70-110 H Lab Interpretation (test cod e = 64832-5) Abnormal [facility] GLUCOSE (AUTOMATED)2023-04-17 23:26:18* Test Item Value Reference Range Interpretation Comme nts POCT GLU (test code = 9868673388) 147 mg/dL 70-110 H Lab Interpretation (test cod e = 08538-9) Abnormal [facility] GLUCOSE (AUTOMATED)2023-04-17 18:40:56* Test Item Value Reference Range Interpretation Comme nts POCT GLU (test code = 7482053129) 115 mg/dL 70-110 H Lab Interpretation (test cod e = 27577-2) [facility]normal [facility] [id number] 18:34:04* Test Item Value Reference Range Interpretation Comme nts SPUTUM CULTURE (test code = 622-1) 1+ Respiratory guillermina: Commensal upper respiratory microorganisms only. Gram stain (test code = 664-3) Moderate PMNs or Mononuclear cells observed CECIL (test code = CECIL) Bacterial pathogens associated with lower respiratory infections were not identified, which include Pseudomonas aeruginosa and Staphylococcus aureus (MRSA or MSSA). [facility] GLUCOSE (AUTOMATED)2023-04-17 15:36:28* Test Item Value Reference Range Interpretation Comme nts POCT GLU (test code = 0597870194) 109 mg/dL 70-110 Lab Interpretation (test cod e = 33216-4) Normal [facility] GLUCOSE (AUTOMATED)2023-04-17 01:46:11* Test Item Value Reference Range Interpretation Comme nts POCT GLU (test code = 4029954851) 106 mg/dL 70-110 Lab Interpretation (test cod e = 25308-5) Normal [facility] GLUCOSE (AUTOMATED)2023-04-16 22:45:17* Test Item Value Reference Range Interpretation Comme nts POCT GLU (test code = 6755504771) 80 mg/dL 70-110 Lab Interpretation (test cod e = 57233-8) Normal [facility] GLUCOSE (AUTOMATED)2023-04-16 18:05:34* Test Item Value Reference Range Interpretation Comme nts POCT GLU (test code = 0040574398) 101 mg/dL 70-110 Lab Interpretation (test cod e = 04088-9) Normal [facility] GLUCOSE (AUTOMATED)2023-04-16 14:50:37* Test Item Value Reference Range Interpretation Comme nts POCT GLU (test code = 4637919385) 121 mg/dL 70-110 H Lab Interpretation (test cod e = 08668-1) Abnormal [facility] WITH [id number] 10:48:50* Test Item Value Reference Range Interpretation Comme nts WBC (test code = 6690-2) 15.49 See_Comment H [Automated message] The system which generated this result transmitted reference range: 4.30 - 11.10 10*3/?L. The reference range was not used to interpret this result as normal/abnormal. RBC (test code = 789-8) 3.09 See_Comment L [Automated message] The system which generated this result transmitted reference range: 3.93 - 5.25 10*6/?L. The reference range was not used to interpret this result as normal/abnormal. HGB (test code = 718-7) 7.0 g/dL 11.6-15.0 L HCT (test code = 4544-3) 23.4 % 35.7-45.2 L MCV (test code = 787-2) 75.7 fL 80.6-95.5 L MCH (test code = 785-6) 22.7 pg 25.9-32.8 L MCHC (test code = 786-4) 29.9 g/dL 31.6-35.1 L RDW-SD (test code = 38218-3) 50.4 fL 39.0-49.9 H RDW-CV (test code = 788-0) 18.5 % 12.0-15.5 H PLT (test code = 777-3) 282 See_Comment [Automated message] The system which generated this result transmitted reference range: 166 - 358 10*3/?L. The reference range was not used to interpret this result as normal/abnormal. MPV (test code = 88008-2) 9.7 fL 9.5-12.9 NRBC/100 WBC (test code = 3300579795) 0.6 See_Comment [Automated message] The system which generated this result transmitted reference range: 0.0 - 10.0 /100 WBCs. The reference range was not used to interpret this result as normal/abnormal. NRBC x10^3 (test code = 8542520520) 0.10 See_Comment [Automated message] The system which generated this result transmitted reference range: 10*3/?L. The reference range was not used to interpret this result as normal/abnormal. GRAN MAT (NEUT) % (test code = 770-8) 69.9 % IMM GRAN % (test code = 6512539239) 5.10 % LYMPH % (test code = 736-9) 14.7 % MONO % (test code = 5905-5) 9.7 % EOS % (test code = 713-8) 0.4 % BASO % (test code = 706-2) 0.2 % GRAN MAT x10^3(ANC) (test code = 7701354570) 10.82 10*3/uL 1.88-7.09 H IMM GRAN x10^3 (test code = 3023082447) 0.79 10*3/uL 0.00-0.06 H LYMPH x10^3 (test code = 731-0) 2.28 10*3/uL 1.32-3.29 MONO x10^3 (test code = 742-7) 1.51 10*3/uL 0.33-0.92 H EOS x10^3 (test code = 711-2) 0.06 10*3/uL 0.03-0.39 BASO x10^3 (test code = 704-7) 0.03 10*3/uL 0.01-0.07 BANDS (test code = 9154540162) Increased A Lab Interpretation (test code = 85425-0) Abnormal [facility] METABOLIC PANEL (NA, K, CL, CO2, GLUCOSE, BUN, CREATININE, CA)2023-04-16 10:31:41* Test Item Value Reference Range Interpretation Comme nts NA (test code = 4563437833) 144 mmol/L 135-145 K (test code = 1645906823) 3.6 mmol/L 3.5-5.0 CL (test code = 0821292108) 106 mmol/L 98-108 CO2 TOTAL (test code = 8800942059) 33 mmol/L 23-31 H AGAP (test code = 1960320280) 5 2-16 BUN (test code = 7537302517) 21 mg/dL 7-23 GLUCOSE (test code = 4931860125) 94 mg/dL 70-110 CREATININE (test code = 5433768373) 0.66 mg/dL 0.50-1.04 CALCIUM (test code = 3637190378) 8.8 mg/dL 8.6-10.6 eGFR (test code = 14267-1) 107.7 mL/min/1.73m2 CKD-EPI eGFR (2020). Assuming creatinine has been stable day-to-day for at least three months, the eGFR indicates Category G1 (>= 90 mL/min/1.73 m2) Lab Interpretation (test code = 05928-9) [facility]normal [facility] 10:31:41* Test Item Value Reference Range Interpretation Comme nts MAGNESIUM (test code = 6251550131) 2.0 mg/dL 1.7-2.4 Lab Interpretation (test cod e = 44831-2) Normal [facility] GLUCOSE (AUTOMATED)2023-04-16 10:00:09* Test Item Value Reference Range Interpretation Comme nts POCT GLU (test code = 3143983840) 97 mg/dL 70-110 Lab Interpretation (test cod e = 01509-0) Normal [facility] GLUCOSE (AUTOMATED)2023-04-16 07:04:19* Test Item Value Reference Range Interpretation Comme nts POCT GLU (test code = 5046354749) 146 mg/dL 70-110 H Lab Interpretation (test cod e = 41616-3) Abnormal [facility] METABOLIC PANEL (NA, K, CL, CO2, GLUCOSE, BUN, CREATININE, CA)2023-04-16 02:51:09* Test Item Value Reference Range Interpretation Comme nts NA (test code = 8045586307) 146 mmol/L 135-145 H K (test code = 1432056544) 4.1 mmol/L 3.5-5.0 CL (test code = 8711894925) 110 mmol/L 98-108 H CO2 TOTAL (test code = 3494862003) 31 mmol/L 23-31 AGAP (test code = 7518837736) 5 2-16 BUN (test code = 0308400539) 24 mg/dL 7-23 H GLUCOSE (test code = 2347461463) 98 mg/dL 70-110 CREATININE (test code = 9608304067) 0.65 mg/dL 0.50-1.04 CALCIUM (test code = 6651870547) 9.5 mg/dL 8.6-10.6 eGFR (test code = 71705-7) 108.1 mL/min/1.73m2 CKD-EPI eGFR (2020). Assuming creatinine has been stable day-to-day for at least three months, the eGFR indicates Category G1 (>= 90 mL/min/1.73 m2) Lab Interpretation (test code = 17545-2) [facility]23-[facility]16 01:50:31* Test Item Value Reference Range Interpretation Comme nts POCT GLU (test code = 0023749945) 89 mg/dL 70-110 Lab Interpretation (test cod e = 50279-4) Normal [facility]01 23:50:09* Test Item Value Reference Range Interpretation Comme nts MAGNESIUM (test code = 9834789812) 2.2 mg/dL 1.7-2.4 Lab Interpretation (test cod e = 64221-0) Normal [facility] METABOLIC PANEL (NA, K, CL, CO2, GLUCOSE, BUN, CREATININE, CA)2023-04-15 23:50:09* Test Item Value Reference Range Interpretation Comme nts NA (test code = 7278808169) 150 mmol/L 135-145 H K (test code = 5430296172) 4.4 mmol/L 3.5-5.0 CL (test code = 0500751918) 112 mmol/L 98-108 H CO2 TOTAL (test code = 6029240182) 34 mmol/L 23-31 H AGAP (test code = 6377844443) 4 2-16 BUN (test code = 3764457824) 26 mg/dL 7-23 H GLUCOSE (test code = 6129686373) 107 mg/dL 70-110 CREATININE (test code = 6606373074) 0.68 mg/dL 0.50-1.04 CALCIUM (test code = 7622221393) 9.6 mg/dL 8.6-10.6 eGFR (test code = 84485-6) 106.9 mL/min/1.73m2 CKD-EPI eGFR (2020). Assuming creatinine has been stable day-to-day for at least three months, the eGFR indicates Category G1 (>= 90 mL/min/1.73 m2) Lab Interpretation (test code = 38903-1) [facility]normal [facility]2023-04-15 15:23:47* Test Item Value Reference Range Interpretation Comme [facility] POCT GLU (test code = 9766524274) 165 mg/dL 70-110 H Lab Interpretation (test cod e = 36649-6) Abnormal [facility] METABOLIC PANEL (NA, K, CL, CO2, GLUCOSE, BUN, CREATININE, CA)2023-04-15 10:45:28* Test Item Value Reference Range Interpretation Comme [facility] NA (test code = 3427841291) 147 mmol/L 135-145 H K (test code = 5602502784) 5.0 mmol/L 3.5-5.0 CL (test code = 5826156126) 110 mmol/L 98-108 H CO2 TOTAL (test code = 1890866571) 31 mmol/L 23-31 AGAP (test code = 8132031224) 6 2-16 BUN (test code = 9347820435) 23 mg/dL 7-23 GLUCOSE (test code = 3948181066) 167 mg/dL 70-110 H CREATININE (test code = 1655264249) 0.74 mg/dL 0.50-1.04 CALCIUM (test code = 6771662739) 9.4 mg/dL 8.6-10.6 eGFR (test code = 58517-9) 99.3 mL/min/1.73m2 CKD-EPI eGFR (2020). Assuming creatinine has been stable day-to-day for at least three months, the eGFR indicates Category G1 (>= 90 mL/min/1.73 m2) Lab Interpretation (test code = 19995-9) [facility]normal [facility] 10:45:28* Test Item Value Reference Range Interpretation Comme nts MAGNESIUM (test code = 7052067790) 2.2 mg/dL 1.7-2.4 Lab Interpretation (test cod e = 64165-4) Normal [facility] [id number] 10:29:32* Test Item Value Reference Range Interpretation Comme nts WBC (test code = 6690-2) 13.28 See_Comment H [Automated message] The system which generated this result transmitted reference range: 4.30 - 11.10 10*3/?L. The reference range was not used to interpret this result as normal/abnormal. RBC (test code = 789-8) 3.19 See_Comment L [Automated message] The system which generated this result transmitted reference range: 3.93 - 5.25 10*6/?L. The reference range was not used to interpret this result as normal/abnormal. HGB (test code = 718-7) 7.3 g/dL 11.6-15.0 L HCT (test code = 4544-3) 24.2 % 35.7-45.2 L MCV (test code = 787-2) 75.9 fL 80.6-95.5 L MCH (test code = 785-6) 22.9 pg 25.9-32.8 L MCHC (test code = 786-4) 30.2 g/dL 31.6-35.1 L RDW-SD (test code = 25092-4) 50.7 fL 39.0-49.9 H RDW-CV (test code = 788-0) 18.5 % 12.0-15.5 H PLT (test code = 777-3) 314 See_Comment [Automated message] The system which generated this result transmitted reference range: 166 - 358 10*3/?L. The reference range was not used to interpret this result as normal/abnormal. MPV (test code = 10742-2) 10.1 fL 9.5-12.9 NRBC/100 WBC (test code = 0488783472) 0.4 See_Comment [Automated message] The system which generated this result transmitted reference range: 0.0 - 10.0 /100 WBCs. The reference range was not used to interpret this result as normal/abnormal. NRBC x10^3 (test code = 1512858161) 0.05 See_Comment [Automated message] The system which generated this result transmitted reference range: 10*3/?L. The reference range was not used to interpret this result as normal/abnormal. GRAN MAT (NEUT) % (test code = 770-8) 84.0 % IMM GRAN % (test code = 2611938351) 5.60 % LYMPH % (test code = 736-9) 6.7 % MONO % (test code = 5905-5) 3.5 % EOS % (test code = 713-8) 0.0 % BASO % (test code = 706-2) 0.2 % GRAN MAT x10^3(ANC) (test code = 6173772651) 11.16 10*3/uL 1.88-7.09 H IMM GRAN x10^3 (test code = 4354728706) 0.74 10*3/uL 0.00-0.06 H LYMPH x10^3 (test code = 731-0) 0.89 10*3/uL 1.32-3.29 L MONO x10^3 (test code = 742-7) 0.46 10*3/uL 0.33-0.92 EOS x10^3 (test code = 711-2) 0.03-0.39 L BASO x10^3 (test code = 704-7) 0.03 10*3/uL 0.01-0.07 Lab Interpretation (test code = 85365-6) 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 Blood Culture-Anaerobic (test code = 00389-4) No organisms isolated No growth Previous preliminary verified result was Culture In Progress on 04/10/2023 at 0701 CSTPrevious preliminary verified result was No growth at 24 hours on 04/11/2023 at 0401 CSTPrevious preliminary verified result was No growth at 48 hours on 04/12/2023 at 0401 CSTPrevious preliminary verified result was No growth at 72 hours on 04/13/2023 at 0401 CORPORATE DEVELOPMENT ANALYST Lab Interpretation (test code = 95240-8) Normal [facility] GLUCOSE (AUTOMATED)2023-04-15 09:40:18* Test Item Value Reference Range Interpretation Comme [facility] POCT GLU (test code = 9257692440) 175 mg/dL 70-110 H Lab Interpretation (test cod e = 68926-7) Abnormal [facility] GLUCOSE (AUTOMATED)2023-04-15 05:52:07* Test Item Value Reference Range Interpretation Comme nts POCT GLU (test code = 5100829328) 160 mg/dL 70-110 H Lab Interpretation (test cod e = 07567-3) [facility] + LACTIC [id number] 02:24:38* Test Item Value Reference Range Interpretation Comme nts PH (test code = 4583443170) 7.40 7.32-7.42 PCO2 CARLOS (test code = 6384279554) 44 See_Comment [Automated messa ge] The system which generated this result transmitted reference range: 41 - 51 mmHg. The reference range was not used to interpret this result as normal/abnormal. PO2 CARLOS (test code = 0582364869) 40 See_Comment [Automated messa ge] The system which generated this result transmitted reference range: 25 - 40 mmHg. The reference range was not used to interpret this result as normal/abnormal. HCO3 CARLOS (test code = 1220785590) 26 See_Comment [Automated messa ge] The system which generated this result transmitted reference range: 24 - 28 mEq/L. The reference range was not used to interpret this result as normal/abnormal. AC VBE(BEAKER) (test code = 3141155284) 1.7 mEq/L THB CARLOS (test code = 9007339813) 7.9 g/dL 12.0-16.0 LL %O2HB CARLOS (test code = 0257752660) 67.9 % 52.0-63.0 H %COHB CARLOS (test code = 2956791111) 0.1 % 0.0-1.5 %METHB CARLOS (test code = 7213328482) 0.3 % 0.4-1.5 L VOL%O2 CARLOS (test code = 2820791714) 7.6 % 6.0-12.0 NA (test code = 1517344009) 147 mmol/L 135-145 H K+ (test code = 0835654894) 4.7 mmol/L 3.5-5.0 AC CA IONZ (test code = 9354415273) 4.80 mg/dL 4.50-5.30 GLUCOSE (test code = 6495877206) 131 mg/dL 70-110 H LACTIC ACID (test code = 3386751598) 0.76 mmol/L 0.50-2.20 Lab Interpretation (test code = 60497-3) [facility]15 02:09:20* Test Item Value Reference Range Interpretation Comme nts POCT GLU (test code = 0301462687) 148 mg/dL 70-110 H Lab Interpretation (test cod e = 56894-0) [facility]20[facility] 00:22:49* Test Item Value Reference Range Interpretation Comme nts PHOSPHORUS (test code = 2073726589) 4.3 mg/dL 2.5-5.0 Lab Interpretation (test cod e = 53785-4) [facility]OL[facility] PAN[facility] (NA, K, CL, CO2, GLUCOSE, BUN, CREATININE, CA)2023-04-14 21:33:21* Test Item Value Reference Range Interpretation Comme nts NA (test code = 9150128494) 149 mmol/L 135-145 H K (test code = 6528401112) 4.5 mmol/L 3.5-5.0 CL (test code = 2800466503) 115 mmol/L 98-108 H CO2 TOTAL (test code = 1760704185) 29 mmol/L 23-31 AGAP (test code = 4496188551) 5 2-16 BUN (test code = 0988625759) 20 mg/dL 7-23 GLUCOSE (test code = 0020249096) 138 mg/dL 70-110 H CREATININE (test code = 2051510826) 0.75 mg/dL 0.50-1.04 CALCIUM (test code = 7827423799) 8.9 mg/dL 8.6-10.6 eGFR (test code = 31436-8) 97.7 mL/min/1.73m2 CKD-EPI eGFR (2020). Assuming creatinine has been stable day-to-day for at least three months, the eGFR indicates Category G1 (>= 90 mL/min/1.73 m2) Lab Interpretation (test code = 67786-7) [facility] 21:33:21* Test Item Value Reference Range Interpretation Comme nts MAGNESIUM (test code = 1754580522) 1.8 mg/dL 1.7-2.4 Lab Interpretation (test cod e = 20897-7) [facility]2023-04-14 18:16:52* Test Item Value Reference Range Interpretation Comme nts POCT GLU (test code = 2731223008) 128 mg/dL 70-110 H Lab Interpretation (test cod e = 78403-8) [facility]normal [facility] 15:27:55* Test Item Value Reference Range Interpretation Comme nts LIPASE (test code = 1549251582) 164 U/L 0-220 Lab Interpretation (test cod e = 90130-6) Normal [facility] + LACTIC [id number] 15:02:09* Test Item Value Reference Range Interpretation Comme nts PH (test code = 5966601803) 7.34 7.32-7.42 PCO2 CARLOS (test code = 9522265204) 49 See_Comment [Automated [employer] ge] The system which generated this result transmitted reference range: 41 - 51 mmHg. The reference range was not used to interpret this result as normal/abnormal. PO2 CARLOS (test code = 2373753490) 45 See_Comment H [Automated messa ge] The system which generated this result transmitted reference range: 25 - 40 mmHg. The reference range was not used to interpret this result as normal/abnormal. HCO3 CARLOS (test code = 9810353618) 26 See_Comment [Automated messa ge] The system which generated this result transmitted reference range: 24 - 28 mEq/L. The reference range was not used to interpret this result as normal/abnormal. AC VBE(BEAKER) (test code = 4044761306) 0.1 mEq/L THB CARLOS (test code = 5317469668) 10.8 g/dL 12.0-16.0 L %O2HB CARLOS (test code = 2793312344) 75.1 % 52.0-63.0 H %COHB CARLOS (test code = 5648025898) 0.1 % 0.0-1.5 %METHB CARLOS (test code = 4444994182) 0.0 % 0.4-1.5 L VOL%O2 CARLOS (test code = 6694875924) 11.4 % 6.0-12.0 NA (test code = 4050714407) 146 mmol/L 135-145 H K+ (test code = 4922578349) 3.4 mmol/L 3.5-5.0 L AC CA IONZ (test code = 6462888957) 5.00 mg/dL 4.50-5.30 GLUCOSE (test code = 6414778604) 110 mg/dL 70-110 LACTIC ACID (test code = 4399950257) 0.67 mmol/L 0.50-2.20 Lab Interpretation (test code = 82355-8) [facility]20[facility]-30 10:53:56* Test Item Value Reference Range Interpretation Comme nts PHOSPHORUS (test code = 6250279396) 3.4 mg/dL 2.5-5.0 Lab Interpretation (test cod e = 51667-9) Normal [facility] (NA, K, CL, CO2, GLUCOSE, BUN, CREATININE, CA)2023-04-14 10:53:55* Test Item Value Reference Range Interpretation Comme nts NA (test code = 4712005804) 143 mmol/L 135-145 K (test code = 5821152044) 3.0 mmol/L 3.5-5.0 L CL (test code = 5829188534) 111 mmol/L 98-108 H CO2 TOTAL (test code = 1648707649) 29 mmol/L 23-31 AGAP (test code = 4834827991) 3 2-16 BUN (test code = 9061085789) 22 mg/dL 7-23 GLUCOSE (test code = 2796868467) 123 mg/dL 70-110 H CREATININE (test code = 0337171731) 0.85 mg/dL 0.50-1.04 CALCIUM (test code = 3443222110) 8.8 mg/dL 8.6-10.6 eGFR (test code = 26008-1) 84.1 mL/min/1.73m2 CKD-EPI eGFR (2020). Assuming creatinine has been stable day-to-day for at least three months, the eGFR indicates Category G2 (60 - 89 mL/min/1.73 m2) Lab Interpretation (test code = 13729-1) [facility]normal [facility]20[facility]-30 10:53:55* Test Item Value Reference Range Interpretation Comme nts MAGNESIUM (test code = 5729785945) 1.8 mg/dL 1.7-2.4 Lab Interpretation (test cod e = 05507-3) Normal [facility] WITH [id number] 10:29:17* Test Item Value Reference Range Interpretation Comme nts WBC (test code = 6690-2) 12.27 See_Comment H [Automated messa ge] The system which generated this result transmitted reference range: 4.30 - 11.10 10*3/?L. The reference range was not used to interpret this result as normal/abnormal. RBC (test code = 789-8) 3.00 See_Comment L [Automated messa ge] The system which generated this result transmitted reference range: 3.93 - 5.25 10*6/?L. The reference range was not used to interpret this result as normal/abnormal. HGB (test code = 718-7) 7.2 g/dL 11.6-15.0 L HCT (test code = 4544-3) 23.6 % 35.7-45.2 L MCV (test code = 787-2) 78.7 fL 80.6-95.5 L MCH (test code = 785-6) 24.0 pg 25.9-32.8 L MCHC (test code = 786-4) 30.5 g/dL 31.6-35.1 L RDW-SD (test code = 99420-5) 52.5 fL 39.0-49.9 H RDW-CV (test code = 788-0) 18.4 % 12.0-15.5 H PLT (test code = 777-3) 342 See_Comment [Automated messa ge] The system which generated this result transmitted reference range: 166 - 358 10*3/?L. The reference range was not used to interpret this result as normal/abnormal. MPV (test code = 02459-5) 9.8 fL 9.5-12.9 NRBC/100 WBC (test code = 6644359556) 0.4 See_Comment [Automated [employer]] The system which generated this result transmitted reference range: 0.0 - 10.0 /100 WBCs. The reference range was not used to interpret this result as normal/abnormal. NRBC x10^3 (test code = 0109064711) 0.05 See_Comment [Automated messa ge] The system which generated this result transmitted reference range: 10*3/?L. The reference range was not used to interpret this result as normal/abnormal. GRAN MAT (NEUT) % (test code = 770-8) 72.8 % IMM GRAN % (test code = 6177454543) 3.30 % LYMPH % (test code = 736-9) 13.4 % MONO % (test code = 5905-5) 9.1 % EOS % (test code = 713-8) 1.2 % BASO % (test code = 706-2) 0.2 % GRAN MAT x10^3(ANC) (test code = 1472707523) 8.92 10*3/uL 1.88-7.09 H IMM GRAN x10^3 (test code = 3954300922) 0.41 10*3/uL 0.00-0.06 H LYMPH x10^3 (test code = 731-0) 1.65 10*3/uL 1.32-3.29 MONO x10^3 (test code = 742-7) 1.12 10*3/uL 0.33-0.92 H EOS x10^3 (test code = 711-2) 0.15 10*3/uL 0.03-0.39 BASO x10^3 (test code = 704-7) 0.01-0.07 POLYCHROMASIA (test code = 69487-0) 2+ See_Comment [Automated [employer]] The system which generated this result transmitted reference range: 2+. The reference range was not used to interpret this result as normal/abnormal. REACT LYMPHS (test code = 4374926240) Rare Lab Interpretation (test code = 52414-8) Abnormal [facility] GLUCOSE (AUTOMATED)2023-04-14 09:44:14* Test Item Value Reference Range Interpretation Comme nts POCT GLU (test code = 9784989403) 130 mg/dL 70-110 H Lab Interpretation (test cod e = 28200-0) [facility]normal [facility]IN [id number] 08:46:39* Test Item Value Reference Range Interpretation Comme nts FERRITIN (test code = 4615153275) 12.8 ng/mL 6.0-137.0 CECIL (test code = CECIL) Biotin has been reported to cause a negative bias, interpret results relative to patient's use of biotin. Lab Interpretation (test code = 37226-7) Normal [facility] GLUCOSE (AUTOMATED)2023-04-14 06:13:40* Test Item Value Reference Range Interpretation Comme nts POCT GLU (test code = 2002478789) 116 mg/dL 70-110 H Lab Interpretation (test cod e = 00072-4) Abnormal [facility] HospitalLOW-DENSITY LIPOPROTEIN, [id number] 03:10:41* Test Item Value Reference Range Interpretation Comme nts dLDL Chol (test code = 94526-7) 62 mg/dL <=130 Lab Interpretation (test cod e = 75320-0) Normal [facility] HospitalLIPID PANEL (12402)(TOTAL CHOLESTEROL, TRIGLYCERIDES, HDL)2023-04-14 02:52:51* Test Item Value Reference Range Interpretation Comme nts CHOL (test code = 7795693766) 147 mg/dL 120-200 HDL (test code = 2989765019) 22 mg/dL >=50 L HDLC RATIO (test code = 4862995482) 6.7 <=4.5 H TRIG (test code = 5148709043) 478 mg/dL 30-170 H LDL CHOL (test code = 08978-5) Unable to calcul ate LDL due to elevated triglyceride level greater than 400 mg/dL. VLDL (test code = 5625349277) 96 mg/dL 5-60 H Lab Interpretation (test code = 24651-8) [facility] + LACTIC [id number] 02:47:16* Test Item Value Reference Range Interpretation Comme nts PH (test code = 6452439309) 7.32 7.32-7.42 PCO2 CARLOS (test code = 9993216569) 55 See_Comment H [Automated messa ge] The system which generated this result transmitted reference range: 41 - 51 mmHg. The reference range was not used to interpret this result as normal/abnormal. PO2 CARLOS (test code = 0798134866) 55 See_Comment HH [Automated messa ge] The system which generated this result transmitted reference range: 25 - 40 mmHg. The reference range was not used to interpret this result as normal/abnormal. HCO3 CARLOS (test code = 5592052072) 27 See_Comment [Automated messa ge] The system which generated this result transmitted reference range: 24 - 28 mEq/L. The reference range was not used to interpret this result as normal/abnormal. AC VBE(BEAKER) (test code = 5407525557) 1.2 mEq/L THB CARLOS (test code = 3038032608) 8.7 g/dL 12.0-16.0 L %O2HB CARLOS (test code = 8483584869) 83.5 % 52.0-63.0 H %COHB CARLOS (test code = 0083676152) 0.2 % 0.0-1.5 %METHB CARLOS (test code = 5127546954) 0.3 % 0.4-1.5 L VOL%O2 CARLOS (test code = 8399505959) 10.3 % 6.0-12.0 NA (test code = 8281912481) 143 mmol/L 135-145 K+ (test code = 7054467687) 3.5 mmol/L 3.5-5.0 AC CA IONZ (test code = 0824011218) 5.10 mg/dL 4.50-5.30 GLUCOSE (test code = 6722938141) 114 mg/dL 70-110 H LACTIC ACID (test code = 4409632345) 0.99 mmol/L 0.50-2.20 Lab Interpretation (test code = 69597-0) Abnormal [facility] GLUCOSE (AUTOMATED)2023-04-14 02:37:46* Test Item Value Reference Range Interpretation Comme nts POCT GLU (test code = 1036692170) 119 mg/dL 70-110 H Lab Interpretation (test cod e = 50941-7) Abnormal [facility] GLUCOSE (AUTOMATED)2023-04-14 02:37:46* Test Item Value Reference Range Interpretation Comme nts POCT GLU (test code = 1864298935) 135 mg/dL 70-110 H Lab Interpretation (test cod e = 72690-7) [facility]20[facility] 22:59:57* Test Item Value Reference Range Interpretation Comme nts MAGNESIUM (test code = 1959320817) 1.8 mg/dL 1.7-2.4 Lab Interpretation (test cod e = 00961-9) Normal [facility] GLUCOSE (AUTOMATED)2023-04-13 22:23:43* Test Item Value Reference Range Interpretation Comme nts POCT GLU (test code = 1076526394) 129 mg/dL 70-110 H Notified Provide r Lab Interpretation (test code = 23756-3) Abnormal [facility] GLUCOSE (AUTOMATED)2023-04-13 17:30:24* Test Item Value Reference Range Interpretation Comme nts POCT GLU (test code = 3192557818) 113 mg/dL 70-110 H Lab Interpretation (test cod e = 41057-8) [facility] + LACTIC [id number] 16:39:56* Test Item Value Reference Range Interpretation Comme nts PH (test code = 7905992914) 7.29 7.32-7.42 L PCO2 CARLOS (test code = 8680802484) 58 See_Comment H [Automated messa ge] The system which generated this result transmitted reference range: 41 - 51 mmHg. The reference range was not used to interpret this result as normal/abnormal. PO2 CARLOS (test code = 1509784458) 42 See_Comment H [Automated messa ge] The system which generated this result transmitted reference range: 25 - 40 mmHg. The reference range was not used to interpret this result as normal/abnormal. HCO3 CARLOS (test code = 7904741954) 27 See_Comment [Automated messa ge] The system which generated this result transmitted reference range: 24 - 28 mEq/L. The reference range was not used to interpret this result as normal/abnormal. AC VBE(BEAKER) (test code = 1000987982) 0.3 mEq/L THB CARLOS (test code = 1905643932) 8.1 g/dL 12.0-16.0 LL %O2HB CARLOS (test code = 0150688925) 73.6 % 52.0-63.0 H %COHB CARLOS (test code = 3961945298) 0.0 % 0.0-1.5 %METHB CARLOS (test code = 3060714429) 0.3 % 0.4-1.5 L VOL%O2 CARLOS (test code = 9996811298) 8.4 % 6.0-12.0 NA (test code = 2709725768) 140 mmol/L 135-145 K+ (test code = 5791597254) 3.7 mmol/L 3.5-5.0 AC CA IONZ (test code = 7208380565) 5.00 mg/dL 4.50-5.30 GLUCOSE (test code = 9041785125) 87 mg/dL 70-110 LACTIC ACID (test code = 2021185170) 0.89 mmol/L 0.50-2.20 Lab Interpretation (test code = 29449-6) [facility]2023-[facility]-13 13:42:40* Test Item Value Reference Range Interpretation Comme nts POCT GLU (test code = 3530360776) 105 mg/dL 70-110 Lab Interpretation (test cod e = 69684-5) Normal [facility]2023-[facility]-29 10:42:50* Test Item Value Reference Range Interpretation Comme nts PHOSPHORUS (test code = 2561485449) 2.1 mg/dL 2.5-5.0 L Lab Interpretation (test cod e = 53847-0) Abnormal [facility] METABOLIC PANEL (NA, K, CL, CO2, GLUCOSE, BUN, CREATININE, CA)2023-04-13 10:42:50* Test Item Value Reference Range Interpretation Comme nts NA (test code = 5150025312) 143 mmol/L 135-145 K (test code = 0577631002) 3.9 mmol/L 3.5-5.0 CL (test code = 9586224188) 110 mmol/L 98-108 H CO2 TOTAL (test code = 6520386694) 30 mmol/L 23-31 AGAP (test code = 8308533733) 3 2-16 BUN (test code = 8638402640) 26 mg/dL 7-23 H GLUCOSE (test code = 6368189929) 88 mg/dL 70-110 CREATININE (test code = 7527387133) 0.96 mg/dL 0.50-1.04 CALCIUM (test code = 9203905657) 8.9 mg/dL 8.6-10.6 eGFR (test code = 93275-2) 72.7 mL/min/1.73m2 CKD-EPI eGFR (2020). Assuming creatinine has been stable day-to-day for at least three months, the eGFR indicates Category G2 (60 - 89 mL/min/1.73 m2) Lab Interpretation (test code = 10999-6) [facility]20[facility]29 10:42:50* Test Item Value Reference Range Interpretation Comme nts MAGNESIUM (test code = 3891183491) 1.8 mg/dL 1.7-2.4 Lab Interpretation (test cod e = 35431-5) Normal [facility] WITH [id number] 10:11:10* Test Item Value Reference Range Interpretation Comme nts WBC (test code = 6690-2) 14.78 See_Comment H [Automated message] The system which generated this result transmitted reference range: 4.30 - 11.10 10*3/?L. The reference range was not used to interpret this result as normal/abnormal. RBC (test code = 789-8) 3.22 See_Comment L [Automated message] The system which generated this result transmitted reference range: 3.93 - 5.25 10*6/?L. The reference range was not used to interpret this result as normal/abnormal. HGB (test code = 718-7) 7.4 g/dL 11.6-15.0 L HCT (test code = 4544-3) 25.9 % 35.7-45.2 L MCV (test code = 787-2) 80.4 fL 80.6-95.5 L MCH (test code = 785-6) 23.0 pg 25.9-32.8 L MCHC (test code = 786-4) 28.6 g/dL 31.6-35.1 L RDW-SD (test code = 84735-3) 52.9 fL 39.0-49.9 H RDW-CV (test code = 788-0) 18.0 % 12.0-15.5 H PLT (test code = 777-3) 374 See_Comment H [Automated message] The system which generated this result transmitted reference range: 166 - 358 10*3/?L. The reference range was not used to interpret this result as normal/abnormal. MPV (test code = 57816-2) 10.5 fL 9.5-12.9 NRBC/100 WBC (test code = 6792032582) 0.4 See_Comment [Automated message] The system which generated this result transmitted reference range: 0.0 - 10.0 /100 WBCs. The reference range was not used to interpret this result as normal/abnormal. NRBC x10^3 (test code = 3904783710) 0.06 See_Comment [Automated message] The system which generated this result transmitted reference range: 10*3/?L. The reference range was not used to interpret this result as normal/abnormal. GRAN MAT (NEUT) % (test code = 770-8) 78.0 % IMM GRAN % (test code = 8351288112) 1.20 % LYMPH % (test code = 736-9) 12.3 % MONO % (test code = 5905-5) 8.0 % EOS % (test code = 713-8) 0.3 % BASO % (test code = 706-2) 0.2 % GRAN MAT x10^3(ANC) (test code = 7058029606) 11.52 10*3/uL 1.88-7.09 H IMM GRAN x10^3 (test code = 9157317016) 0.18 10*3/uL 0.00-0.06 H LYMPH x10^3 (test code = 731-0) 1.82 10*3/uL 1.32-3.29 MONO x10^3 (test code = 742-7) 1.18 10*3/uL 0.33-0.92 H EOS x10^3 (test code = 711-2) 0.05 10*3/uL 0.03-0.39 BASO x10^3 (test code = 704-7) 0.03 10*3/uL 0.01-0.07 Lab Interpretation (test code = 95648-3) [facility] + LACTIC [id number] 10:00:46* Test Item Value Reference Range Interpretation Comme nts PH (test code = 0969933193) 7.31 7.32-7.42 L PCO2 CARLOS (test code = 1584369880) 61 See_Comment H [Automated messa ge] The system which generated this result transmitted reference range: 41 - 51 mmHg. The reference range was not used to interpret this result as normal/abnormal. PO2 CARLOS (test code = 9038642870) 45 See_Comment H [Automated messa ge] The system which generated this result transmitted reference range: 25 - 40 mmHg. The reference range was not used to interpret this result as normal/abnormal. HCO3 CARLOS (test code = 3234739804) 30 See_Comment H [Automated messa ge] The system which generated this result transmitted reference range: 24 - 28 mEq/L. The reference range was not used to interpret this result as normal/abnormal. AC VBE(BEAKER) (test code = 4796119427) 3.2 mEq/L THB CARLOS (test code = 4404264912) 8.1 g/dL 12.0-16.0 LL %O2HB CARLOS (test code = 7371675779) 80.8 % 52.0-63.0 H %COHB CARLOS (test code = 4509812409) 0.2 % 0.0-1.5 %METHB CARLOS (test code = 9042998088) 0.1 % 0.4-1.5 L VOL%O2 CARLOS (test code = 1743308728) 9.2 % 6.0-12.0 NA (test code = 3803276998) 144 mmol/L 135-145 K+ (test code = 5821700516) 3.9 mmol/L 3.5-5.0 AC CA IONZ (test code = 4125954087) 4.90 mg/dL 4.50-5.30 GLUCOSE (test code = 7006964528) 88 mg/dL 70-110 LACTIC ACID (test code = 2503616988) 0.87 mmol/L 0.50-2.20 QUES Lab Interpretation (test code = 98553-2) [facility] 09:51:05* Test Item Value Reference Range Interpretation Comme [facility] POCT GLU (test code = 7135163343) 100 mg/dL 70-110 Lab Interpretation (test cod e = 68954-9) Normal [facility] [facility] METABOLIC PANEL (NA, K, CL, CO2, GLUCOSE, BUN, CREATININE, CA)2023-04-13 06:29:57* Test Item Value Reference Range Interpretation Comme [facility] NA (test code = 6249407663) 142 mmol/L 135-145 K (test code = 4745608522) 4.1 mmol/L 3.5-5.0 CL (test code = 6187068221) 109 mmol/L 98-108 H CO2 TOTAL (test code = 6161187344) 32 mmol/L 23-31 H AGAP (test code = 9587405167) 1 2-16 L BUN (test code = 7761320382) 27 mg/dL 7-23 H GLUCOSE (test code = 2208377794) 93 mg/dL 70-110 CREATININE (test code = 6185715700) 1.00 mg/dL 0.50-1.04 CALCIUM (test code = 9770208190) 8.6 mg/dL 8.6-10.6 eGFR (test code = 46958-2) 69.2 mL/min/1.73m2 CKD-EPI eGFR (2020). Assuming creatinine has been stable day-to-day for at least three months, the eGFR indicates Category G2 (60 - 89 mL/min/1.73 m2) Lab Interpretation (test code = 19713-9) [facility] 05:51:07* Test Item Value Reference Range Interpretation Comme [facility] POCT GLU (test code = 9544101106) 100 mg/dL 70-110 Lab Interpretation (test cod e = 47677-8) Normal [facility] + LACTIC [id number] 04:25:48* Test Item Value Reference Range Interpretation Comme [facility] PH (test code = 0588240636) 7.30 7.32-7.42 L PCO2 CARLOS (test code = 2317864243) 63 See_Comment H [Automated messa ge] The system which generated this result transmitted reference range: 41 - 51 mmHg. The reference range was not used to interpret this result as normal/abnormal. PO2 CARLOS (test code = 6251394792) 46 See_Comment H [Automated messa ge] The system which generated this result transmitted reference range: 25 - 40 mmHg. The reference range was not used to interpret this result as normal/abnormal. HCO3 CARLOS (test code = 1191148666) 30 See_Comment H [Automated messa ge] The system which generated this result transmitted reference range: 24 - 28 mEq/L. The reference range was not used to interpret this result as normal/abnormal. AC VBE(BEAKER) (test code = 6529228577) 3.2 mEq/L THB CARLOS (test code = 3507159102) 8.3 g/dL 12.0-16.0 LL %O2HB CARLOS (test code = 9415282401) 81.0 % 52.0-63.0 H %COHB CARLOS (test code = 3747775568) 0.3 % 0.0-1.5 %METHB CARLOS (test code = 4043488037) 0.3 % 0.4-1.5 L VOL%O2 CARLOS (test code = 3384592031) 9.5 % 6.0-12.0 NA (test code = 8593794219) 143 mmol/L 135-145 K+ (test code = 5378625488) 4.1 mmol/L 3.5-5.0 AC CA IONZ (test code = 7405561506) 4.90 mg/dL 4.50-5.30 GLUCOSE (test code = 9525680768) 88 mg/dL 70-110 LACTIC ACID (test code = 4236909629) 0.86 mmol/L 0.50-2.20 Lab Interpretation (test code = 87016-0) Abnormal [facility] METABOLIC PANEL (NA, K, CL, CO2, GLUCOSE, BUN, CREATININE, CA)2023-04-13 02:49:10* Test Item Value Reference Range Interpretation Comme nts NA (test code = 6075436302) 142 mmol/L 135-145 K (test code = 8106268580) 4.1 mmol/L 3.5-5.0 CL (test code = 1465602882) 109 mmol/L 98-108 H CO2 TOTAL (test code = 6783766951) 32 mmol/L 23-31 H AGAP (test code = 0046085629) 1 2-16 L BUN (test code = 1736088343) 27 mg/dL 7-23 H GLUCOSE (test code = 2218694932) 100 mg/dL 70-110 CREATININE (test code = 4048212034) 1.03 mg/dL 0.50-1.04 CALCIUM (test code = 0892239518) 8.6 mg/dL 8.6-10.6 eGFR (test code = 80870-8) 66.8 mL/min/1.73m2 CKD-EPI eGFR (2020). Assuming creatinine has been stable day-to-day for at least three months, the eGFR indicates Category G2 (60 - 89 mL/min/1.73 m2) Lab Interpretation (test code = 34937-4) Abnormal [facility] WITHOUT [id number] 02:32:50* Test Item Value Reference Range Interpretation Comme nts WBC (test code = 6690-2) 16.24 See_Comment H [Automated message] The system which generated this result transmitted reference range: 4.30 - 11.10 10*3/?L. The reference range was not used to interpret this result as normal/abnormal. RBC (test code = 789-8) 3.29 See_Comment L [Automated message] The system which generated this result transmitted reference range: 3.93 - 5.25 10*6/?L. The reference range was not used to interpret this result as normal/abnormal. HGB (test code = 718-7) 7.7 g/dL 11.6-15.0 L HCT (test code = 4544-3) 25.7 % 35.7-45.2 L MCH (test code = 785-6) 23.4 pg 25.9-32.8 L MCV (test code = 787-2) 78.1 fL 80.6-95.5 L MCHC (test code = 786-4) 30.0 g/dL 31.6-35.1 L PLT (test code = 777-3) 380 See_Comment H [Automated message] The system which generated this result transmitted reference range: 166 - 358 10*3/?L. The reference range was not used to interpret this result as normal/abnormal. MPV (test code = 41419-8) 9.7 fL 9.5-12.9 RDW-CV (test code = 788-0) 18.1 % 12.0-15.5 H RDW-SD (test code = 40970-4) 52.1 fL 39.0-49.9 H NRBC x10^3 (test code = 6532721675) 0.07 See_Comment [Automated messa ge] The system which generated this result transmitted reference range: 10*3/?L. The reference range was not used to interpret this result as normal/abnormal. NRBC/100 WBC (test code = 6149457441) 0.4 See_Comment [Automated [employer] ge] The system which generated this result transmitted reference range: 0.0 - 10.0 /100 WBCs. The reference range was not used to interpret this result as normal/abnormal. IPF % (test code = 8257706039) Lab Interpretation (test code = 76358-0) [facility]normal [facility]23-[facility]-13 02:21:07* Test Item Value Reference Range Interpretation Comme nts POCT GLU (test code = 2148838777) 112 mg/dL 70-110 H Lab Interpretation (test cod e = 79026-5) Abnormal [facility] METABOLIC PANEL (NA, K, CL, CO2, GLUCOSE, BUN, CREATININE, CA)2023-04-12 22:25:18* Test Item Value Reference Range Interpretation Comme nts NA (test code = 6181643696) 145 mmol/L 135-145 K (test code = 5802486858) 4.4 mmol/L 3.5-5.0 CL (test code = 3450765242) 113 mmol/L 98-108 H CO2 TOTAL (test code = 0332161732) 28 mmol/L 23-31 AGAP (test code = 0975780660) 4 2-16 BUN (test code = 2722009756) 30 mg/dL 7-23 H GLUCOSE (test code = 8000783809) 99 mg/dL 70-110 CREATININE (test code = 0683201405) 1.07 mg/dL 0.50-1.04 H CALCIUM (test code = 9036997489) 8.7 mg/dL 8.6-10.6 eGFR (test code = 04312-4) 63.8 mL/min/1.73m2 CKD-EPI eGFR (2020). Assuming creatinine has been stable day-to-day for at least three months, the eGFR indicates Category G2 (60 - 89 mL/min/1.73 m2) Lab Interpretation (test code = 57070-0) [facility]normal [facility]2023-[facility] 22:25:18* Test Item Value Reference Range Interpretation Comme nts MAGNESIUM (test code = 7959579919) 2.1 mg/dL 1.7-2.4 Lab Interpretation (test cod e = 63353-5) Normal [facility]2023-04-12 21:45:44* Test Item Value Reference Range Interpretation Comme nts POCT GLU (test code = 1381211115) 108 mg/dL 70-110 Lab Interpretation (test cod e = 49282-4) Normal [facility] WITH [id number] 21:38:52* Test Item Value Reference Range Interpretation Comme nts WBC (test code = 6690-2) 16.92 See_Comment H [Automated message] The system which generated this result transmitted reference range: 4.30 - 11.10 10*3/?L. The reference range was not used to interpret this result as normal/abnormal. RBC (test code = 789-8) 3.25 See_Comment L [Automated message] The system which generated this result transmitted reference range: 3.93 - 5.25 10*6/?L. The reference range was not used to interpret this result as normal/abnormal. HGB (test code = 718-7) 7.6 g/dL 11.6-15.0 L HCT (test code = 4544-3) 26.0 % 35.7-45.2 L MCV (test code = 787-2) 80.0 fL 80.6-95.5 L MCH (test code = 785-6) 23.4 pg 25.9-32.8 L MCHC (test code = 786-4) 29.2 g/dL 31.6-35.1 L RDW-SD (test code = 95108-2) 53.0 fL 39.0-49.9 H RDW-CV (test code = 788-0) 18.1 % 12.0-15.5 H PLT (test code = 777-3) 379 See_Comment H [Automated message] The system which generated this result transmitted reference range: 166 - 358 10*3/?L. The reference range was not used to interpret this result as normal/abnormal. MPV (test code = 61332-1) 10.0 fL 9.5-12.9 NRBC/100 WBC (test code = 2228430711) 0.6 See_Comment [Automated message] The system which generated this result transmitted reference range: 0.0 - 10.0 /100 WBCs. The reference range was not used to interpret this result as normal/abnormal. NRBC x10^3 (test code = 1961891468) 0.10 See_Comment [Automated message] The system which generated this result transmitted reference range: 10*3/?L. The reference range was not used to interpret this result as normal/abnormal. GRAN MAT (NEUT) % (test code = 770-8) 78.8 % IMM GRAN % (test code = 6300700397) 1.40 % LYMPH % (test code = 736-9) 10.8 % MONO % (test code = 5905-5) 8.9 % EOS % (test code = 713-8) 0.0 % BASO % (test code = 706-2) 0.1 % GRAN MAT x10^3(ANC) (test code = 0192837679) 13.33 10*3/uL 1.88-7.09 H IMM GRAN x10^3 (test code = 3239266685) 0.24 10*3/uL 0.00-0.06 H LYMPH x10^3 (test code = 731-0) 1.82 10*3/uL 1.32-3.29 MONO x10^3 (test code = 742-7) 1.51 10*3/uL 0.33-0.92 H EOS x10^3 (test code = 711-2) 0.03-0.39 L BASO x10^3 (test code = 704-7) 0.01-0.07 POLYCHROMASIA (test code = 33056-2) 2+ See_Comment [Automated message] The system which generated this result transmitted reference range: 2+. The reference range was not used to interpret this result as normal/abnormal. Lab Interpretation (test code = 85518-9) [facility]normal [facility] + Lactic [id number] 20:56:11* Test Item Value Reference Range Interpretation Comme nts PH (test code = 2) 7.22 7.35-7.45 L PCO2 (test code = 2967513600) 63 See_Comment H [Automated messa ge] The system which generated this result transmitted reference range: 35 - 45 mmHg. The reference range was not used to interpret this result as normal/abnormal. PO2 (test code = 1690879942) 150 See_Comment H [Automated messa ge] The system which generated this result transmitted reference range: 80 - 100 mmHg. The reference range was not used to interpret this result as normal/abnormal. HCO3 (test code = 9655206894) 25 See_Comment [Automated messa ge] The system which generated this result transmitted reference range: 22 - 26 mEq/L. The reference range was not used to interpret this result as normal/abnormal. BE (test code = 0563648816) -2.9 See_Comment [Automated messa ge] The system which generated this result transmitted reference range: -3.0 - 3.0 mEq/L. The reference range was not used to interpret this result as normal/abnormal. THB (test code = 1025099358) 8.4 g/dL 12.0-16.0 L %O2HB (test code = 6712811270) 98.2 % 94.0-99.0 %COHB ART (test code = 9385664504) 0.5 % 0.0-1.5 %METHB ART (test code = 2451033106) 0.3 % 0.4-1.5 L VOL%O2 ART (test code = 0251069106) 11.9 % 15.0-23.0 L NA (test code = 2337271259) 142 mmol/L 135-145 K+ (test code = 8685980460) 4.5 mmol/L 3.5-5.0 AC CA IONZ (test code = 2088080310) 5.10 mg/dL 4.50-5.30 GLUCOSE (test code = 9689929868) 94 mg/dL 70-110 LACTIC ACID (test code = 0613861102) 1.02 mmol/L 0.50-2.20 Lab Interpretation (test code = 43237-7) Abnormal [facility] METABOLIC PANEL (NA, K, CL, CO2, GLUCOSE, BUN, CREATININE, CA)2023-04-12 18:51:57* Test Item Value Reference Range Interpretation Comme nts NA (test code = 6166187564) 144 mmol/L 135-145 K (test code = 2310394307) 4.8 mmol/L 3.5-5.0 CL (test code = 2558165823) 115 mmol/L 98-108 H CO2 TOTAL (test code = 8371841947) 26 mmol/L 23-31 AGAP (test code = 5841291670) 3 2-16 BUN (test code = 0772542900) 30 mg/dL 7-23 H GLUCOSE (test code = 9197910429) 92 mg/dL 70-110 CREATININE (test code = 9335341317) 1.11 mg/dL 0.50-1.04 H CALCIUM (test code = 8634781951) 8.4 mg/dL 8.6-10.6 L eGFR (test code = 51623-5) 61.1 mL/min/1.73m2 CKD-EPI eGFR (2020). Assuming creatinine has been stable day-to-day for at least three months, the eGFR indicates Category G2 (60 - 89 mL/min/1.73 m2) Lab Interpretation (test code = 86609-5) [facility]normal [facility]2023-[facility]-12 17:39:26* Test Item Value Reference Range Interpretation Comme nts POCT GLU (test code = 2534007767) 94 mg/dL 70-110 Lab Interpretation (test cod e = 23780-8) Normal [facility] HospitalSputum [id number] 16:49:19* Test Item Value Reference Range Interpretation Comme nts SPUTUM CULTURE (test code = 622-1) 1+ Respiratory guillermina: Commensal upper respiratory microorganisms only. Gram stain (test code = 664-3) No Epithelial cells CECIL (test code = CECIL) Bacterial pathogens associated with lower respiratory infections were not identified, which include Pseudomonas aeruginosa and Staphylococcus aureus (MRSA or MSSA). [facility] WITH [id number] 14:12:57* Test Item Value Reference Range Interpretation Comme nts WBC (test code = 6690-2) 14.54 See_Comment H [Automated message] The system which generated this result transmitted reference range: 4.30 - 11.10 10*3/?L. The reference range was not used to interpret this result as normal/abnormal. RBC (test code = 789-8) 2.98 See_Comment L [Automated message] The system which generated this result transmitted reference range: 3.93 - 5.25 10*6/?L. The reference range was not used to interpret this result as normal/abnormal. HGB (test code = 718-7) 6.8 g/dL 11.6-15.0 L HCT (test code = 4544-3) 23.4 % 35.7-45.2 L MCV (test code = 787-2) 78.5 fL 80.6-95.5 L MCH (test code = 785-6) 22.8 pg 25.9-32.8 L MCHC (test code = 786-4) 29.1 g/dL 31.6-35.1 L RDW-SD (test code = 57460-5) 53.6 fL 39.0-49.9 H RDW-CV (test code = 788-0) 18.5 % 12.0-15.5 H PLT (test code = 777-3) 380 See_Comment H [Automated message] The system which generated this result transmitted reference range: 166 - 358 10*3/?L. The reference range was not used to interpret this result as normal/abnormal. MPV (test code = 81216-9) 9.9 fL 9.5-12.9 NRBC/100 WBC (test code = 4816324316) 0.6 See_Comment [Automated message] The system which generated this result transmitted reference range: 0.0 - 10.0 /100 WBCs. The reference range was not used to interpret this result as normal/abnormal. NRBC x10^3 (test code = 0300104809) 0.08 See_Comment [Automated message] The system which generated this result transmitted reference range: 10*3/?L. The reference range was not used to interpret this result as normal/abnormal. GRAN MAT (NEUT) % (test code = 770-8) 77.2 % IMM GRAN % (test code = 2551432360) 1.60 % LYMPH % (test code = 736-9) 11.1 % MONO % (test code = 5905-5) 10.0 % EOS % (test code = 713-8) 0.0 % BASO % (test code = 706-2) 0.1 % GRAN MAT x10^3(ANC) (test code = 5620892326) 11.23 10*3/uL 1.88-7.09 H IMM GRAN x10^3 (test code = 3666335743) 0.23 10*3/uL 0.00-0.06 H LYMPH x10^3 (test code = 731-0) 1.62 10*3/uL 1.32-3.29 MONO x10^3 (test code = 742-7) 1.45 10*3/uL 0.33-0.92 H EOS x10^3 (test code = 711-2) 0.03-0.39 L BASO x10^3 (test code = 704-7) 0.01-0.07 Lab Interpretation (test code = 09820-5) [facility] Test Item Value Reference Range Interpretation Comme nts MAGNESIUM (test code = 9587562951) 2.4 mg/dL 1.7-2.4 Lab Interpretation (test cod e = 85349-3) Normal [facility] METABOLIC PANEL (NA, K, CL, CO2, GLUCOSE, BUN, CREATININE, CA)2023-04-12 13:53:56* Test Item Value Reference Range Interpretation Comme nts NA (test code = 5977468654) 141 mmol/L 135-145 K (test code = 9751081077) 4.9 mmol/L 3.5-5.0 CL (test code = 0381493800) 112 mmol/L 98-108 H CO2 TOTAL (test code = 1810190890) 24 mmol/L 23-31 AGAP (test code = 6046670772) 5 2-16 BUN (test code = 4961121105) 28 mg/dL 7-23 H GLUCOSE (test code = 8696201704) 107 mg/dL 70-110 CREATININE (test code = 6925097153) 1.01 mg/dL 0.50-1.04 CALCIUM (test code = 0297767365) 8.4 mg/dL 8.6-10.6 L eGFR (test code = 94183-7) 68.4 mL/min/1.73m2 CKD-EPI eGFR (2020). Assuming creatinine has been stable day-to-day for at least three months, the eGFR indicates Category G2 (60 - 89 mL/min/1.73 m2) Lab Interpretation (test code = 46333-3) [facility]normal [facility]2023-04-12 13:35:00* Test Item Value Reference Range Interpretation Comme nts POCT GLU (test code = 5432326016) 115 mg/dL 70-110 H Lab Interpretation (test cod e = 20381-2) [facility]normal [facility] HospitalPrep[facility] Packed RBC (in units), 1 Units 2023-04-12 13:28:16* Test Item Value Reference Range Interpretation Comme nts Cross Match Result (test code = 4409) Compatible ISBT Blood Type Code (test code = 842556) 6200 Unit Blood Type (test code = 4410) A Pos Unit Number (test code = 4411) [id number] Blood Expiration Date & Time (test code = 227572) [id number] Status Information (test code = 4412) Issued Product Identification (test code = 4413) Red Blood Cells Product Code (test code = 4414) [id number] Performed at [facility] Laboratory Services [facility] Blood [address] [address] Free: [phone] No. [id number] [facility] 20 + Lactic Vjhu5528-59-75 09:58:46* Test Item Value Reference Range Interpretation Comme nts PH (test code = 2) 7.27 7.35-7.45 L PCO2 (test code = 7402250448) 57 See_Comment H [Automated messa ge] The system which generated this result transmitted reference range: 35 - 45 mmHg. The reference range was not used to interpret this result as normal/abnormal. PO2 (test code = 1566737515) 100 See_Comment [Automated messa ge] The system which generated this result transmitted reference range: 80 - 100 mmHg. The reference range was not used to interpret this result as normal/abnormal. HCO3 (test code = 4669716837) 26 See_Comment [Automated messa ge] The system which generated this result transmitted reference range: 22 - 26 mEq/L. The reference range was not used to interpret this result as normal/abnormal. BE (test code = 7082713505) -2.3 See_Comment [Automated messa ge] The system which generated this result transmitted reference range: -3.0 - 3.0 mEq/L. The reference range was not used to interpret this result as normal/abnormal. THB (test code = 4151640047) 13.9 g/dL 12.0-16.0 %O2HB (test code = 4782327346) 96.5 % 94.0-99.0 %COHB ART (test code = 0550884952) 0.9 % 0.0-1.5 %METHB ART (test code = 3456612685) 0.0 % 0.4-1.5 L VOL%O2 ART (test code = 7956091248) 19.0 % 15.0-23.0 NA (test code = 1760050176) 142 mmol/L 135-145 K+ (test code = 6954990703) 4.9 mmol/L 3.5-5.0 AC CA IONZ (test code = 9255537485) 5.10 mg/dL 4.50-5.30 GLUCOSE (test code = 6301108901) 102 mg/dL 70-110 LACTIC ACID (test code = 7976672138) 1.54 mmol/L 0.50-2.20 Lab Interpretation (test code = 54099-9) [facility]normal [facility]2023-04-12 09:42:48* Test Item Value Reference Range Interpretation Comme nts POCT GLU (test code = 8578800347) 127 mg/dL 70-110 H Lab Interpretation (test cod e = 88997-1) Abnormal [facility]2023-[facility]-28 07:01:35* Test Item Value Reference Range Interpretation Comme nts PHOSPHORUS (test code = 9442069054) 3.5 mg/dL 2.5-5.0 Lab Interpretation (test cod e = 94157-7) Normal [facility] (NA, K, CL, CO2, GLUCOSE, BUN, CREATININE, CA)2023-04-12 07:01:34* Test Item Value Reference Range Interpretation Comme nts NA (test code = 6847286401) 139 mmol/L 135-145 K (test code = 3261023800) 5.0 mmol/L 3.5-5.0 CL (test code = 1198751709) 112 mmol/L 98-108 H CO2 TOTAL (test code = 1514804928) 25 mmol/L 23-31 AGAP (test code = 4314542105) 2 2-16 BUN (test code = 2799351578) 24 mg/dL 7-23 H GLUCOSE (test code = 9370997456) 128 mg/dL 70-110 H CREATININE (test code = 7282484136) 0.99 mg/dL 0.50-1.04 CALCIUM (test code = 0456257539) 8.3 mg/dL 8.6-10.6 L eGFR (test code = 80619-8) 70.0 mL/min/1.73m2 CKD-EPI eGFR (2020). Assuming creatinine has been stable day-to-day for at least three months, the eGFR indicates Category G2 (60 - 89 mL/min/1.73 m2) Lab Interpretation (test code = 64907-9) [facility]normal [facility]2023-[facility]-28 07:01:34* Test Item Value Reference Range Interpretation Comme nts MAGNESIUM (test code = 3366606873) 2.4 mg/dL 1.7-2.4 Lab Interpretation (test cod e = 58627-5) Normal [facility] GLUCOSE (AUTOMATED)2023-04-12 06:23:35* Test Item Value Reference Range Interpretation Comme [facility] POCT GLU (test code = 8424460598) 150 mg/dL 70-110 H Lab Interpretation (test cod e = 80994-1) Abnormal [facility] GLUCOSE (AUTOMATED)2023-04-12 02:29:43* Test Item Value Reference Range Interpretation Comme [facility] POCT GLU (test code = 8335437598) 133 mg/dL 70-110 H Lab Interpretation (test cod e = 15528-0) [facility]normal [facility] 20 + Lactic [id number] 01:39:21* Test Item Value Reference Range Interpretation Comme nts PH (test code = 2) 7.27 7.35-7.45 L PCO2 (test code = 7808663545) 49 See_Comment H [Automated messa ge] The system which generated this result transmitted reference range: 35 - 45 mmHg. The reference range was not used to interpret this result as normal/abnormal. PO2 (test code = 9681649111) 87 See_Comment [Automated messa ge] The system which generated this result transmitted reference range: 80 - 100 mmHg. The reference range was not used to interpret this result as normal/abnormal. HCO3 (test code = 8718830844) 22 See_Comment [Automated messa ge] The system which generated this result transmitted reference range: 22 - 26 mEq/L. The reference range was not used to interpret this result as normal/abnormal. BE (test code = 1749584695) -4.6 See_Comment L [Automated messa ge] The system which generated this result transmitted reference range: -3.0 - 3.0 mEq/L. The reference range was not used to interpret this result as normal/abnormal. THB (test code = 0650758561) 8.8 g/dL 12.0-16.0 L %O2HB (test code = 8316568778) 95.1 % 94.0-99.0 %COHB ART (test code = 2378995855) 0.3 % 0.0-1.5 %METHB ART (test code = 6772034308) 0.1 % 0.4-1.5 L VOL%O2 ART (test code = 0444077518) 11.9 % 15.0-23.0 L NA (test code = 6347782771) 139 mmol/L 135-145 K+ (test code = 8339629590) 4.8 mmol/L 3.5-5.0 AC CA IONZ (test code = 3324179701) 4.80 mg/dL 4.50-5.30 GLUCOSE (test code = 6862149351) 113 mg/dL 70-110 H LACTIC ACID (test code = 5896040546) 0.98 mmol/L 0.50-2.20 Lab Interpretation (test code = 40582-8) Abnormal [facility] [id number] 01:25:33* Test Item Value Reference Range Interpretation Comme nts IRON (test code = 4759266704) 18 ug/dL 50-160 L TIBC (test code = 4866467812) 412 ug/dL 250-410 H % FE SAT (test code = 1104385211) 4 % 20-50 L Lab Interpretation (test cod e = 11282-3) Abnormal [facility] METABOLIC PANEL (NA, K, CL, CO2, GLUCOSE, BUN, CREATININE, CA)2023-04-12 01:15:56* Test Item Value Reference Range Interpretation Comme nts NA (test code = 3214160712) 141 mmol/L 135-145 K (test code = 3041526361) 5.2 mmol/L 3.5-5.0 H CL (test code = 1526001627) 112 mmol/L 98-108 H CO2 TOTAL (test code = 0181252538) 24 mmol/L 23-31 AGAP (test code = 6881737509) 5 2-16 BUN (test code = 5941821651) 20 mg/dL 7-23 GLUCOSE (test code = 4977781867) 121 mg/dL 70-110 H CREATININE (test code = 2043760540) 1.03 mg/dL 0.50-1.04 CALCIUM (test code = 7753123969) 8.5 mg/dL 8.6-10.6 L eGFR (test code = 13647-2) 66.8 mL/min/1.73m2 CKD-EPI eGFR (2020). Assuming creatinine has been stable day-to-day for at least three months, the eGFR indicates Category G2 (60 - 89 mL/min/1.73 m2) Lab Interpretation (test code = 15546-6) [facility] Test Item Value Reference Range Interpretation Comme nts PHOSPHORUS (test code = 4920995944) 3.4 mg/dL 2.5-5.0 Lab Interpretation (test cod e = 77510-3) Normal [facility] [facility] Test Item Value Reference Range Interpretation Comme nts MAGNESIUM (test code = 9755971645) 2.4 mg/dL 1.7-2.4 Lab Interpretation (test cod e = 06611-1) Normal [facility] GLUCOSE (AUTOMATED)2023-04-11 23:56:40* Test Item Value Reference Range Interpretation Comme nts POCT GLU (test code = 7305342426) 166 mg/dL 70-110 H Lab Interpretation (test cod e = 20753-0) Abnormal [facility] GLUCOSE (AUTOMATED)2023-04-11 23:00:43* Test Item Value Reference Range Interpretation Comme nts POCT GLU (test code = 4978188083) 113 mg/dL 70-110 H Lab Interpretation (test cod e = 15919-1) Abnormal [facility] METABOLIC PANEL (NA, K, CL, CO2, GLUCOSE, BUN, CREATININE, CA)2023-04-11 22:12:54* Test Item Value Reference Range Interpretation Comme nts NA (test code = 6442479336) 140 mmol/L 135-145 K (test code = 5191319604) 5.6 mmol/L 3.5-5.0 H CL (test code = 1591625295) 114 mmol/L 98-108 H CO2 TOTAL (test code = 0254116255) 26 mmol/L 23-31 AGAP (test code = 5687576558) 2-16 L BUN (test code = 3723726747) 20 mg/dL 7-23 GLUCOSE (test code = 6808356277) 96 mg/dL 70-110 CREATININE (test code = 3917487906) 1.01 mg/dL 0.50-1.04 CALCIUM (test code = 8874764263) 8.0 mg/dL 8.6-10.6 L eGFR (test code = 99361-5) 68.4 mL/min/1.73m2 CKD-EPI eGFR (2020). Assuming creatinine has been stable day-to-day for at least three months, the eGFR indicates Category G2 (60 - 89 mL/min/1.73 m2) Lab Interpretation (test code = 47121-9) [facility] 22:07:48* Test Item Value Reference Range Interpretation Comme nts PHOSPHORUS (test code = 7140148095) 4.0 mg/dL 2.5-5.0 Lab Interpretation (test cod e = 09149-5) Normal [facility] 22:07:48* Test Item Value Reference Range Interpretation Comme nts MAGNESIUM (test code = 3418454899) 2.6 mg/dL 1.7-2.4 H Lab Interpretation (test cod e = 39809-4) [facility]normal [facility] + Lactic Wuoi5468-63-88 21:23:42* Test Item Value Reference Range Interpretation Comme nts PH (test code = 2) 7.18 7.35-7.45 LL PCO2 (test code = 0464672900) 64 See_Comment H [Automated messa ge] The system which generated this result transmitted reference range: 35 - 45 mmHg. The reference range was not used to interpret this result as normal/abnormal. PO2 (test code = 8334580899) 112 See_Comment H [Automated messa ge] The system which generated this result transmitted reference range: 80 - 100 mmHg. The reference range was not used to interpret this result as normal/abnormal. HCO3 (test code = 6330075842) 23 See_Comment [Automated messa ge] The system which generated this result transmitted reference range: 22 - 26 mEq/L. The reference range was not used to interpret this result as normal/abnormal. BE (test code = 3298466291) -5.0 See_Comment L [Automated messa ge] The system which generated this result transmitted reference range: -3.0 - 3.0 mEq/L. The reference range was not used to interpret this result as normal/abnormal. THB (test code = 2519883413) 8.1 g/dL 12.0-16.0 LL %O2HB (test code = 0454366140) 97.2 % 94.0-99.0 %COHB ART (test code = 1375516089) 0.3 % 0.0-1.5 %METHB ART (test code = 2494524638) 0.1 % 0.4-1.5 L VOL%O2 ART (test code = 9651234839) 11.3 % 15.0-23.0 L NA (test code = 9893017690) 139 mmol/L 135-145 K+ (test code = 2220522370) 5.5 mmol/L 3.5-5.0 H AC CA IONZ (test code = 7694662880) 4.90 mg/dL 4.50-5.30 GLUCOSE (test code = 4669395510) 88 mg/dL 70-110 LACTIC ACID (test code = 3538918877) 0.72 mmol/L 0.50-2.20 Lab Interpretation (test code = 11793-7) Abnormal [facility] METABOLIC PANEL (NA, K, CL, CO2, GLUCOSE, BUN, CREATININE, CA)2023-04-11 18:11:15* Test Item Value Reference Range Interpretation Comme nts NA (test code = 4920728683) 140 mmol/L 135-145 K (test code = 8361557264) 4.9 mmol/L 3.5-5.0 CL (test code = 3638932154) 115 mmol/L 98-108 H CO2 TOTAL (test code = 8549580241) 23 mmol/L 23-31 AGAP (test code = 6347047180) 2 2-16 BUN (test code = 8806425035) 20 mg/dL 7-23 GLUCOSE (test code = 4014148358) 108 mg/dL 70-110 CREATININE (test code = 4028251015) 0.96 mg/dL 0.50-1.04 CALCIUM (test code = 1027788864) 8.0 mg/dL 8.6-10.6 L eGFR (test code = 08247-5) 72.7 mL/min/1.73m2 CKD-EPI eGFR (2020). Assuming creatinine has been stable day-to-day for at least three months, the eGFR indicates Category G2 (60 - 89 mL/min/1.73 m2) Lab Interpretation (test code = 31479-1) [facility]normal [facility] 18:11:15* Test Item Value Reference Range Interpretation Comme nts PHOSPHORUS (test code = 4431549505) 3.6 mg/dL 2.5-5.0 Lab Interpretation (test cod e = 29294-5) Normal [facility] 18:11:15* Test Item Value Reference Range Interpretation Comme nts MAGNESIUM (test code = 0583993118) 2.7 mg/dL 1.7-2.4 H Lab Interpretation (test cod e = 81401-7) [facility]normal [facility] + Lactic Aotf4935-63-67 18:10:54* Test Item Value Reference Range Interpretation Comme nts PH (test code = 2) 7.18 7.35-7.45 LL PCO2 (test code = 9504181694) 62 See_Comment H [Automated messa ge] The system which generated this result transmitted reference range: 35 - 45 mmHg. The reference range was not used to interpret this result as normal/abnormal. PO2 (test code = 1519979530) 106 See_Comment H [Automated messa ge] The system which generated this result transmitted reference range: 80 - 100 mmHg. The reference range was not used to interpret this result as normal/abnormal. HCO3 (test code = 4953133034) 23 See_Comment [Automated messa ge] The system which generated this result transmitted reference range: 22 - 26 mEq/L. The reference range was not used to interpret this result as normal/abnormal. BE (test code = 1572130308) -5.8 See_Comment L [Automated messa ge] The system which generated this result transmitted reference range: -3.0 - 3.0 mEq/L. The reference range was not used to interpret this result as normal/abnormal. THB (test code = 9514685001) 8.1 g/dL 12.0-16.0 LL %O2HB (test code = 7906788122) 96.5 % 94.0-99.0 %COHB ART (test code = 6264082468) 0.4 % 0.0-1.5 %METHB ART (test code = 2147505933) 0.1 % 0.4-1.5 L VOL%O2 ART (test code = 0311909947) 11.2 % 15.0-23.0 L NA (test code = 1680932939) 139 mmol/L 135-145 K+ (test code = 3674764672) 4.7 mmol/L 3.5-5.0 AC CA IONZ (test code = 1923943177) 4.90 mg/dL 4.50-5.30 GLUCOSE (test code = 6064807723) 100 mg/dL 70-110 LACTIC ACID (test code = 6939901205) 1.00 mmol/L 0.50-2.20 Lab Interpretation (test code = 48789-5) Abnormal [facility] METABOLIC PANEL (NA, K, CL, CO2, GLUCOSE, BUN, CREATININE, CA)2023-04-11 14:52:22* Test Item Value Reference Range Interpretation Comme nts NA (test code = 0520615573) 140 mmol/L 135-145 K (test code = 0400809605) 4.7 mmol/L 3.5-5.0 CL (test code = 6946957984) 113 mmol/L 98-108 H CO2 TOTAL (test code = 9870424602) 21 mmol/L 23-31 L AGAP (test code = 2109748321) 6 2-16 BUN (test code = 6683159036) 18 mg/dL 7-23 GLUCOSE (test code = 3956365043) 135 mg/dL 70-110 H CREATININE (test code = 7575729701) 1.02 mg/dL 0.50-1.04 CALCIUM (test code = 0589839066) 7.8 mg/dL 8.6-10.6 L eGFR (test code = 57382-3) 67.6 mL/min/1.73m2 CKD-EPI eGFR (2020). Assuming creatinine has been stable day-to-day for at least three months, the eGFR indicates Category G2 (60 - 89 mL/min/1.73 m2) Lab Interpretation (test code = 80817-5) [facility]normal [facility] 14:52:22* Test Item Value Reference Range Interpretation Comme nts PHOSPHORUS (test code = 2134958777) 3.2 mg/dL 2.5-5.0 Lab Interpretation (test cod e = 53160-8) Normal [facility] 14:52:22* Test Item Value Reference Range Interpretation Comme nts MAGNESIUM (test code = 5304341871) 2.7 mg/dL 1.7-2.4 H Lab Interpretation (test cod e = 20108-0) [facility]normal [facility] + Lactic Fhbw5759-75-04 14:49:51* Test Item Value Reference Range Interpretation Comme nts PH (test code = 2) 7.29 7.35-7.45 L PCO2 (test code = 6987470962) 47 See_Comment H [Automated messa ge] The system which generated this result transmitted reference range: 35 - 45 mmHg. The reference range was not used to interpret this result as normal/abnormal. PO2 (test code = 0725766170) 111 See_Comment H [Automated messa ge] The system which generated this result transmitted reference range: 80 - 100 mmHg. The reference range was not used to interpret this result as normal/abnormal. HCO3 (test code = 3660333201) 22 See_Comment [Automated messa ge] The system which generated this result transmitted reference range: 22 - 26 mEq/L. The reference range was not used to interpret this result as normal/abnormal. BE (test code = 4920244754) -4.4 See_Comment L [Automated messa ge] The system which generated this result transmitted reference range: -3.0 - 3.0 mEq/L. The reference range was not used to interpret this result as normal/abnormal. THB (test code = 3185004236) 7.8 g/dL 12.0-16.0 LL %O2HB (test code = 2943467075) 97.4 % 94.0-99.0 %COHB ART (test code = 6684832372) 0.7 % 0.0-1.5 %METHB ART (test code = 9938083950) 0.0 % 0.4-1.5 L VOL%O2 ART (test code = 9567394641) 10.9 % 15.0-23.0 L NA (test code = 1146250381) 139 mmol/L 135-145 K+ (test code = 9062004451) 4.6 mmol/L 3.5-5.0 AC CA IONZ (test code = 0837940974) 4.70 mg/dL 4.50-5.30 GLUCOSE (test code = 2603754741) 131 mg/dL 70-110 H LACTIC ACID (test code = 9969434439) 1.95 mmol/L 0.50-2.20 Lab Interpretation (test code = 26983-0) [facility]normal [facility] + Lactic Tibc3870-90-12 11:03:58* Test Item Value Reference Range Interpretation Comme nts PH (test code = 2) 7.19 7.35-7.45 LL PCO2 (test code = 4137472799) 55 See_Comment H [Automated messa ge] The system which generated this result transmitted reference range: 35 - 45 mmHg. The reference range was not used to interpret this result as normal/abnormal. PO2 (test code = 6371909943) 122 See_Comment H [Automated messa ge] The system which generated this result transmitted reference range: 80 - 100 mmHg. The reference range was not used to interpret this result as normal/abnormal. HCO3 (test code = 1523458926) 20 See_Comment L [Automated messa ge] The system which generated this result transmitted reference range: 22 - 26 mEq/L. The reference range was not used to interpret this result as normal/abnormal. BE (test code = 0924696594) -7.6 See_Comment L [Automated messa ge] The system which generated this result transmitted reference range: -3.0 - 3.0 mEq/L. The reference range was not used to interpret this result as normal/abnormal. THB (test code = 9870838781) 8.2 g/dL 12.0-16.0 LL %O2HB (test code = 0737761772) 97.8 % 94.0-99.0 %COHB ART (test code = 1566598284) 0.2 % 0.0-1.5 %METHB ART (test code = 6163462996) 0.3 % 0.4-1.5 L VOL%O2 ART (test code = 1589324585) 11.5 % 15.0-23.0 L NA (test code = 7442306543) 138 mmol/L 135-145 K+ (test code = 9624727329) 4.9 mmol/L 3.5-5.0 AC CA IONZ (test code = 8710145996) 4.60 mg/dL 4.50-5.30 GLUCOSE (test code = 9971407121) 141 mg/dL 70-110 H LACTIC ACID (test code = 6731714964) 2.62 mmol/L 0.50-2.20 H Lab Interpretation (test code = 67507-8) [facility] + Lactic Ouem7363-30-14 11:03:48* Test Item Value Reference Range Interpretation Comme nts PH (test code = 2) 7.22 7.35-7.45 L PCO2 (test code = 4651702311) 45 See_Comment [Automated messa ge] The system which generated this result transmitted reference range: 35 - 45 mmHg. The reference range was not used to interpret this result as normal/abnormal. PO2 (test code = 0373643029) 147 See_Comment H [Automated messa ge] The system which generated this result transmitted reference range: 80 - 100 mmHg. The reference range was not used to interpret this result as normal/abnormal. HCO3 (test code = 8945842917) 18 See_Comment L [Automated messa ge] The system which generated this result transmitted reference range: 22 - 26 mEq/L. The reference range was not used to interpret this result as normal/abnormal. BE (test code = 5044436790) -9.0 See_Comment L [Automated messa ge] The system which generated this result transmitted reference range: -3.0 - 3.0 mEq/L. The reference range was not used to interpret this result as normal/abnormal. THB (test code = 6284305339) 8.0 g/dL 12.0-16.0 LL %O2HB (test code = 5653657685) 98.4 % 94.0-99.0 %COHB ART (test code = 5991435736) 0.1 % 0.0-1.5 %METHB ART (test code = 0289252853) 0.3 % 0.4-1.5 L VOL%O2 ART (test code = 1431519748) 11.4 % 15.0-23.0 L NA (test code = 2109089692) 138 mmol/L 135-145 K+ (test code = 2033778635) 4.7 mmol/L 3.5-5.0 AC CA IONZ (test code = 7068222908) 4.60 mg/dL 4.50-5.30 GLUCOSE (test code = 3734658321) 165 mg/dL 70-110 H LACTIC ACID (test code = 9099039160) 2.94 mmol/L 0.50-2.20 H Lab Interpretation (test code = 05584-1) Abnormal [facility] GLUCOSE (AUTOMATED)2023-04-11 09:38:33* Test Item Value Reference Range Interpretation Comme [facility] POCT GLU (test code = 9370439735) 201 mg/dL 70-110 H Lab Interpretation (test cod e = 07060-7) Abnormal [facility] GLUCOSE (AUTOMATED)2023-04-11 09:38:33* Test Item Value Reference Range Interpretation Comme [facility] POCT GLU (test code = 5188635723) 198 mg/dL 70-110 H Lab Interpretation (test cod e = 87040-7) [facility]normal [facility] + Lactic Sbef1292-56-29 06:34:26* Test Item Value Reference Range Interpretation Comme nts PH (test code = 2) 7.21 7.35-7.45 L PCO2 (test code = 2056159578) 51 See_Comment H [Automated messa ge] The system which generated this result transmitted reference range: 35 - 45 mmHg. The reference range was not used to interpret this result as normal/abnormal. PO2 (test code = 0474790160) 152 See_Comment H [Automated messa ge] The system which generated this result transmitted reference range: 80 - 100 mmHg. The reference range was not used to interpret this result as normal/abnormal. HCO3 (test code = 9606209220) 20 See_Comment L [Automated messa ge] The system which generated this result transmitted reference range: 22 - 26 mEq/L. The reference range was not used to interpret this result as normal/abnormal. BE (test code = 1443018760) -7.5 See_Comment L [Automated messa ge] The system which generated this result transmitted reference range: -3.0 - 3.0 mEq/L. The reference range was not used to interpret this result as normal/abnormal. THB (test code = 1577500378) 7.9 g/dL 12.0-16.0 LL %O2HB (test code = 4407795081) 98.1 % 94.0-99.0 %COHB ART (test code = 8244303639) 0.4 % 0.0-1.5 %METHB ART (test code = 3611764837) 0.3 % 0.4-1.5 L VOL%O2 ART (test code = 9966222311) 11.2 % 15.0-23.0 L NA (test code = 5195873048) 138 mmol/L 135-145 K+ (test code = 3771977781) 4.8 mmol/L 3.5-5.0 AC CA IONZ (test code = 3869979051) 4.60 mg/dL 4.50-5.30 GLUCOSE (test code = 3169096323) 156 mg/dL 70-110 H LACTIC ACID (test code = 1779993009) 3.36 mmol/L 0.50-2.20 H Lab Interpretation (test code = 16147-5) [facility] 05:14:38* Test Item Value Reference Range Interpretation Comme nts POCT GLU (test code = 8246658840) 133 mg/dL 70-110 H Lab Interpretation (test cod e = 84049-9) [facility]normal [facility] + Lactic Rjxh0820-57-07 05:06:51* Test Item Value Reference Range Interpretation Comme nts PH (test code = 2) 7.18 7.35-7.45 LL PCO2 (test code = 4164941517) 55 See_Comment H [Automated messa ge] The system which generated this result transmitted reference range: 35 - 45 mmHg. The reference range was not used to interpret this result as normal/abnormal. PO2 (test code = 8462597652) 120 See_Comment H [Automated messa ge] The system which generated this result transmitted reference range: 80 - 100 mmHg. The reference range was not used to interpret this result as normal/abnormal. HCO3 (test code = 0517167204) 20 See_Comment L [Automated messa ge] The system which generated this result transmitted reference range: 22 - 26 mEq/L. The reference range was not used to interpret this result as normal/abnormal. BE (test code = 1738247465) -8.0 See_Comment L [Automated messa ge] The system which generated this result transmitted reference range: -3.0 - 3.0 mEq/L. The reference range was not used to interpret this result as normal/abnormal. THB (test code = 0437360944) 8.3 g/dL 12.0-16.0 LL %O2HB (test code = 4087802038) 97.5 % 94.0-99.0 %COHB ART (test code = 9855439957) 0.2 % 0.0-1.5 %METHB ART (test code = 3499613263) 0.3 % 0.4-1.5 L VOL%O2 ART (test code = 5727311506) 11.6 % 15.0-23.0 L NA (test code = 7798942915) 138 mmol/L 135-145 K+ (test code = 8426076920) 4.8 mmol/L 3.5-5.0 AC CA IONZ (test code = 8919880083) 4.70 mg/dL 4.50-5.30 GLUCOSE (test code = 5464409511) 145 mg/dL 70-110 H LACTIC ACID (test code = 2599904721) 2.73 mmol/L 0.50-2.20 H Lab Interpretation (test code = 89686-0) [facility] (NA, K, CL, CO2, GLUCOSE, BUN, CREATININE, CA)2023-04-11 03:17:26* Test Item Value Reference Range Interpretation Comme nts NA (test code = 6011360394) 141 mmol/L 135-145 K (test code = 7172637382) 4.9 mmol/L 3.5-5.0 CL (test code = 0000079925) 111 mmol/L 98-108 H CO2 TOTAL (test code = 3550067892) 20 mmol/L 23-31 L AGAP (test code = 4119106301) 10 2-16 BUN (test code = 0292716478) 18 mg/dL 7-23 GLUCOSE (test code = 5322580514) 137 mg/dL 70-110 H CREATININE (test code = 6914537542) 1.29 mg/dL 0.50-1.04 H CALCIUM (test code = 4177649551) 7.7 mg/dL 8.6-10.6 L eGFR (test code = 14644-4) 51.0 mL/min/1.73m2 CKD-EPI eGFR (2020). Assuming creatinine has been stable day-to-day for at least three months, the eGFR indicates Category G3a (45 - 59 mL/min/1.73 m2) Lab Interpretation (test code = 71140-1) [facility] + Lactic Gvww8779-67-95 03:01:58* Test Item Value Reference Range Interpretation Comme nts PH (test code = 2) 7.12 7.35-7.45 LL PCO2 (test code = 1738853697) 70 See_Comment H [Automated messa ge] The system which generated this result transmitted reference range: 35 - 45 mmHg. The reference range was not used to interpret this result as normal/abnormal. PO2 (test code = 0958454141) 96 See_Comment [Automated messa ge] The system which generated this result transmitted reference range: 80 - 100 mmHg. The reference range was not used to interpret this result as normal/abnormal. HCO3 (test code = 4488592129) 22 See_Comment [Automated messa ge] The system which generated this result transmitted reference range: 22 - 26 mEq/L. The reference range was not used to interpret this result as normal/abnormal. BE (test code = 5799418813) -7.5 See_Comment L [Automated messa ge] The system which generated this result transmitted reference range: -3.0 - 3.0 mEq/L. The reference range was not used to interpret this result as normal/abnormal. THB (test code = 9946389623) 8.7 g/dL 12.0-16.0 L %O2HB (test code = 0662593490) 95.0 % 94.0-99.0 %COHB ART (test code = 4587125990) 0.2 % 0.0-1.5 %METHB ART (test code = 6577778151) 0.2 % 0.4-1.5 L VOL%O2 ART (test code = 9751332660) 11.8 % 15.0-23.0 L NA (test code = 5018435657) 140 mmol/L 135-145 K+ (test code = 3614776172) 4.9 mmol/L 3.5-5.0 AC CA IONZ (test code = 9653958310) 4.60 mg/dL 4.50-5.30 GLUCOSE (test code = 1280813438) 137 mg/dL 70-110 H LACTIC ACID (test code = 7185009275) 1.92 mmol/L 0.50-2.20 Lab Interpretation (test code = 33296-5) [facility] 02:29:37* Test Item Value Reference Range Interpretation Comme [facility] POCT GLU (test code = 4901439726) 153 mg/dL 70-110 H Lab Interpretation (test cod e = 25134-5) [facility]normal [facility] + Lactic Keoc6914-11-24 01:55:07* Test Item Value Reference Range Interpretation Comme [facility] PH (test code = 2) 7.23 7.35-7.45 L PCO2 (test code = 7262846365) 48 See_Comment H [Automated messa ge] The system which generated this result transmitted reference range: 35 - 45 mmHg. The reference range was not used to interpret this result as normal/abnormal. PO2 (test code = 4224079133) 171 See_Comment H [Automated messa ge] The system which generated this result transmitted reference range: 80 - 100 mmHg. The reference range was not used to interpret this result as normal/abnormal. HCO3 (test code = 1978563338) 19 See_Comment L [Automated messa ge] The system which generated this result transmitted reference range: 22 - 26 mEq/L. The reference range was not used to interpret this result as normal/abnormal. BE (test code = 2270131419) -7.7 See_Comment L [Automated messa ge] The system which generated this result transmitted reference range: -3.0 - 3.0 mEq/L. The reference range was not used to interpret this result as normal/abnormal. THB (test code = 3043948566) 8.3 g/dL 12.0-16.0 LL %O2HB (test code = 8183714818) 99.0 % 94.0-99.0 %COHB ART (test code = 6931896748) 0.2 % 0.0-1.5 %METHB ART (test code = 2359112651) 0.2 % 0.4-1.5 L VOL%O2 ART (test code = 6800487828) 12.0 % 15.0-23.0 L NA (test code = 5110099351) 139 mmol/L 135-145 K+ (test code = 0606803712) 4.8 mmol/L 3.5-5.0 AC CA IONZ (test code = 8089646741) 4.60 mg/dL 4.50-5.30 GLUCOSE (test code = 3336402035) 133 mg/dL 70-110 H LACTIC ACID (test code = 2215490349) 2.69 mmol/L 0.50-2.20 H Lab Interpretation (test code = 10715-9) Abnormal [facility] METABOLIC PANEL (NA, K, CL, CO2, GLUCOSE, BUN, CREATININE, CA)2023-04-11 00:07:30* Test Item Value Reference Range Interpretation Comme nts NA (test code = 3789448087) 138 mmol/L 135-145 K (test code = 7424346085) 4.8 mmol/L 3.5-5.0 CL (test code = 4365688524) 111 mmol/L 98-108 H CO2 TOTAL (test code = 0030554200) 20 mmol/L 23-31 L AGAP (test code = 1482772066) 7 2-16 BUN (test code = 4005232215) 17 mg/dL 7-23 GLUCOSE (test code = 1044282141) 149 mg/dL 70-110 H CREATININE (test code = 0830162471) 1.40 mg/dL 0.50-1.04 H CALCIUM (test code = 2629973412) 7.8 mg/dL 8.6-10.6 L eGFR (test code = 08395-0) 46.2 mL/min/1.73m2 CKD-EPI eGFR (2020). Assuming creatinine has been stable day-to-day for at least three months, the eGFR indicates Category G3a (45 - 59 mL/min/1.73 m2) Lab Interpretation (test code = 80540-3) [facility] + Lactic Iiqx5121-36-60 22:38:22* Test Item Value Reference Range Interpretation Comme nts PH (test code = 2) 7.21 7.35-7.45 L PCO2 (test code = 6445798759) 51 See_Comment H [Automated messa ge] The system which generated this result transmitted reference range: 35 - 45 mmHg. The reference range was not used to interpret this result as normal/abnormal. PO2 (test code = 6619648426) 153 See_Comment H [Automated messa ge] The system which generated this result transmitted reference range: 80 - 100 mmHg. The reference range was not used to interpret this result as normal/abnormal. HCO3 (test code = 5163873147) 20 See_Comment L [Automated messa ge] The system which generated this result transmitted reference range: 22 - 26 mEq/L. The reference range was not used to interpret this result as normal/abnormal. BE (test code = 2494450291) -7.7 See_Comment L [Automated messa ge] The system which generated this result transmitted reference range: -3.0 - 3.0 mEq/L. The reference range was not used to interpret this result as normal/abnormal. THB (test code = 6416993993) 8.4 g/dL 12.0-16.0 L %O2HB (test code = 1884703407) 98.7 % 94.0-99.0 %COHB ART (test code = 7980415797) 0.3 % 0.0-1.5 %METHB ART (test code = 7289578811) 0.0 % 0.4-1.5 L VOL%O2 ART (test code = 1443190913) 12.0 % 15.0-23.0 L NA (test code = 2906076932) 139 mmol/L 135-145 K+ (test code = 9180999429) 4.8 mmol/L 3.5-5.0 AC CA IONZ (test code = 0288973060) 4.50 mg/dL 4.50-5.30 GLUCOSE (test code = 4754690283) 142 mg/dL 70-110 H LACTIC ACID (test code = 2201856570) 2.60 mmol/L 0.50-2.20 H Lab Interpretation (test code = 12553-3) [facility] 21:42:03* Test Item Value Reference Range Interpretation Comme nts POCT GLU (test code = 6023168652) 150 mg/dL 70-110 H Lab Interpretation (test cod e = 72768-6) Abnormal [facility] METABOLIC PANEL (NA, K, CL, CO2, GLUCOSE, BUN, CREATININE, CA)2023-04-10 20:58:37* Test Item Value Reference Range Interpretation Comme nts NA (test code = 9447314812) 138 mmol/L 135-145 K (test code = 6633875085) 5.6 mmol/L 3.5-5.0 H CL (test code = 3253188104) 111 mmol/L 98-108 H CO2 TOTAL (test code = 9660309017) 22 mmol/L 23-31 L AGAP (test code = 5008569633) 5 2-16 BUN (test code = 5803124797) 15 mg/dL 7-23 GLUCOSE (test code = 7408031525) 118 mg/dL 70-110 H CREATININE (test code = 6680041705) 1.33 mg/dL 0.50-1.04 H CALCIUM (test code = 7143999007) 7.8 mg/dL 8.6-10.6 L eGFR (test code = 02670-2) 49.1 mL/min/1.73m2 CKD-EPI eGFR (2020). Assuming creatinine has been stable day-to-day for at least three months, the eGFR indicates Category G3a (45 - 59 mL/min/1.73 m2) Lab Interpretation (test code = 06670-5) [facility]normal [facility] + Lactic Oqch9722-32-39 20:27:42* Test Item Value Reference Range Interpretation Comme nts PH (test code = 2) 7.20 7.35-7.45 L PCO2 (test code = 1355322497) 58 See_Comment H [Automated messa ge] The system which generated this result transmitted reference range: 35 - 45 mmHg. The reference range was not used to interpret this result as normal/abnormal. PO2 (test code = 2347042331) 161 See_Comment H [Automated messa ge] The system which generated this result transmitted reference range: 80 - 100 mmHg. The reference range was not used to interpret this result as normal/abnormal. HCO3 (test code = 1063869207) 22 See_Comment [Automated messa ge] The system which generated this result transmitted reference range: 22 - 26 mEq/L. The reference range was not used to interpret this result as normal/abnormal. BE (test code = 9048138024) -6.0 See_Comment L [Automated messa ge] The system which generated this result transmitted reference range: -3.0 - 3.0 mEq/L. The reference range was not used to interpret this result as normal/abnormal. THB (test code = 7392157471) 8.2 g/dL 12.0-16.0 LL %O2HB (test code = 3975639379) 98.5 % 94.0-99.0 %COHB ART (test code = 0233562446) 0.4 % 0.0-1.5 %METHB ART (test code = 6336993890) 0.2 % 0.4-1.5 L VOL%O2 ART (test code = 7993146441) 11.7 % 15.0-23.0 L NA (test code = 9563411803) 138 mmol/L 135-145 K+ (test code = 0109594967) 5.4 mmol/L 3.5-5.0 H AC CA IONZ (test code = 6632940620) 4.60 mg/dL 4.50-5.30 GLUCOSE (test code = 9390597592) 111 mg/dL 70-110 H LACTIC ACID (test code = 5001979317) 1.31 mmol/L 0.50-2.20 Lab Interpretation (test code = 76006-1) Abnormal [facility] GLUCOSE (AUTOMATED)2023-04-10 15:00:49* Test Item Value Reference Range Interpretation Comme nts POCT GLU (test code = 8426986822) 156 mg/dL 70-110 H Lab Interpretation (test cod e = 28622-0) [facility]normal [facility]COOX+NA+K+GLU+CA2+2023-04-10 14:40:42* Test Item Value Reference Range Interpretation Comme nts PH (test code = 2) 7.28 7.35-7.45 L PCO2 (test code = 7809888770) 45 See_Comment [Automated messa ge] The system which generated this result transmitted reference range: 35 - 45 mmHg. The reference range was not used to interpret this result as normal/abnormal. PO2 (test code = 6343130419) 89 See_Comment [Automated messa ge] The system which generated this result transmitted reference range: 80 - 100 mmHg. The reference range was not used to interpret this result as normal/abnormal. HCO3 (test code = 1923023462) 21 See_Comment L [Automated messa ge] The system which generated this result transmitted reference range: 22 - 26 mEq/L. The reference range was not used to interpret this result as normal/abnormal. BE (test code = 2826718651) -5.7 See_Comment L [Automated messa ge] The system which generated this result transmitted reference range: -3.0 - 3.0 mEq/L. The reference range was not used to interpret this result as normal/abnormal. THB (test code = 3753186625) 8.8 g/dL 12.0-16.0 L %O2HB (test code = 2154306780) 94.8 % 94.0-99.0 %COHB ART (test code = 9043693271) 0.6 % 0.0-1.5 %METHB ART (test code = 8324072654) 0.0 % 0.4-1.5 L VOL%O2 ART (test code = 2753402082) 11.9 % 15.0-23.0 L NA (test code = 9431814575) 138 mmol/L 135-145 K+ (test code = 1736359156) 4.4 mmol/L 3.5-5.0 AC CA IONZ (test code = 2586152109) 4.80 mg/dL 4.50-5.30 GLUCOSE (test code = 4319029763) 135 mg/dL 70-110 H Lab Interpretation (test code = 72101-9) [facility]normal [facility]2023-04-10 10:55:04* Test Item Value Reference Range Interpretation Comme nts POCT GLU (test code = 2398106070) 189 mg/dL 70-110 H Lab Interpretation (test cod e = 08317-0) [facility]normal [facility] 21 + LACTIC PRTQ9368-10-81 09:34:48* Test Item Value Reference Range Interpretation Comme nts PH (test code = 9418081546) 7.35 7.32-7.42 PCO2 CARLOS (test code = 1911893303) 36 See_Comment L [Automated messa ge] The system which generated this result transmitted reference range: 41 - 51 mmHg. The reference range was not used to interpret this result as normal/abnormal. PO2 CARLOS (test code = 7138317027) 55 See_Comment HH [Automated messa ge] The system which generated this result transmitted reference range: 25 - 40 mmHg. The reference range was not used to interpret this result as normal/abnormal. HCO3 CARLOS (test code = 5704137488) 19 See_Comment L [Automated messa ge] The system which generated this result transmitted reference range: 24 - 28 mEq/L. The reference range was not used to interpret this result as normal/abnormal. AC VBE(BEAKER) (test code = 6525953407) -6.0 mEq/L THB CARLOS (test code = 3302709425) 9.0 g/dL 12.0-16.0 L %O2HB CARLOS (test code = 6223431921) 89.2 % 52.0-63.0 H %COHB CARLOS (test code = 5619730859) 0.1 % 0.0-1.5 %METHB CARLOS (test code = 0050963635) 0.1 % 0.4-1.5 L VOL%O2 CARLOS (test code = 6798507798) 11.3 % 6.0-12.0 NA (test code = 3499257328) 137 mmol/L 135-145 K+ (test code = 3361905009) 4.3 mmol/L 3.5-5.0 AC CA IONZ (test code = 9922206274) 4.70 mg/dL 4.50-5.30 GLUCOSE (test code = 5512683754) 151 mg/dL 70-110 H LACTIC ACID (test code = 2902079800) 1.91 mmol/L 0.50-2.20 Lab Interpretation (test code = 26666-1) Abnormal [facility] T2619-33-82 00:27:26* Test Item Value Reference Range Interpretation Comme nts TROPONIN I (test code = 0819250160) 0.001 ng/mL <=0.034 CECIL (test code = [...] of biotin. Lab Interpretation (test code = 15754-1) Normal [facility] P5124-29-23 21:27:30* Test Item Value Reference Range Interpretation Comme nts TROPONIN I (test code = 3319710643) 0.002 ng/mL <=0.034 CECIL (test code = CECIL) [...] of biotin. Lab Interpretation (test code = 01635-0) Normal [facility] NMM-SXB5350-05-05 21:25:13* Test Item Value Reference Range Interpretation Comme nts NT-proBNP (test code = 74748-1) 76 pg/mL <=125 Lab Interpretation (test cod e = 67683-5) Normal [facility]OL[facility] PAN[facility] (97567)2023-01-18 21:16:32* Test Item Value Reference Range Interpretation Comme nts NA (test code = 3583616359) 136 mmol/L 135-145 K (test code = 5070281133) 4.3 mmol/L 3.5-5.0 CL (test code = 0344689232) 105 mmol/L 98-108 CO2 TOTAL (test code = 4703131123) 26 mmol/L 23-31 AGAP (test code = 8854071877) 5 2-16 BUN (test code = 2658543100) 11 mg/dL 7-23 GLUCOSE (test code = 2147251419) 82 mg/dL 70-110 CREATININE (test code = 4276899007) 0.90 mg/dL 0.50-1.04 TOTAL BILI (test code = 9196499983) 0.2 mg/dL 0.1-1.1 CALCIUM (test code = 2015198323) 8.5 mg/dL 8.6-10.6 L T PROTEIN (test code = 1847013805) 6.9 g/dL 6.3-8.2 ALBUMIN (test code = 5615522346) 3.8 g/dL 3.5-5.0 ALK PHOS (test code = 1158910542) 107 U/L 34-122 ALTv (test code = 1742-6) 28 U/L 5-35 AST(SGOT) (test code = 2349956009) 32 U/L 13-40 eGFR (test code = 7600652430) 66.5 mL/min/1.73m2 CECIL (test code = CECIL) Association of [...] or abnormalities in imaging tests). Lab Interpretation (test code = 47343-1) [facility]normal [facility]2023-[facility] 21:15:51* Test Item Value Reference Range Interpretation Comme nts LIPASE (test code = 2788032772) 68 U/L 0-220 Lab Interpretation (test cod e = 72381-0) Normal [facility] WITH IMWN3364-77-13 20:55:45* Test Item Value Reference Range Interpretation Comme nts WBC (test code = 6690-2) 9.55 See_Comment [Automated [employer]] The system which generated this result transmitted reference range: 4.30 - 11.10 10*3/?L. The reference range was not used to interpret this result as normal/abnormal. RBC (test code = 789-8) 3.62 See_Comment L [Automated [employer]] The system which generated this result transmitted reference range: 3.93 - 5.25 10*6/?L. The reference range was not used to interpret this result as normal/abnormal. HGB (test code = 718-7) 8.7 g/dL 11.6-15.0 L HCT (test code = 4544-3) 28.2 % 35.7-45.2 L MCV (test code = 787-2) 77.9 fL 80.6-95.5 L MCH (test code = 785-6) 24.0 pg 25.9-32.8 L MCHC (test code = 786-4) 30.9 g/dL 31.6-35.1 L RDW-SD (test code = 01792-4) 46.9 fL 39.0-49.9 RDW-CV (test code = 788-0) 16.4 % 12.0-15.5 H PLT (test code = 777-3) 418 See_Comment H [Automated messa ge] The system which generated this result transmitted reference range: 166 - 358 10*3/?L. The reference range was not used to interpret this result as normal/abnormal. MPV (test code = 30563-6) 10.2 fL 9.5-12.9 NRBC/100 WBC (test code = 3070188508) 0.0 See_Comment [Automated [employer] ss[employer]] The system which generated this result transmitted reference range: 0.0 - 10.0 /100 WBCs. The reference range was not used to interpret this result as normal/abnormal. NRBC x10^3 (test code = 0132225861) See_Comment [Automated messa ge] The system which generated this result transmitted reference range: 10*3/?L. The reference range was not used to interpret this result as normal/abnormal. GRAN MAT (NEUT) % (test code = 770-8) 60.8 % IMM GRAN % (test code = 9400271409) 0.40 % LYMPH % (test code = 736-9) 30.9 % MONO % (test code = 5905-5) 5.2 % EOS % (test code = 713-8) 1.9 % BASO % (test code = 706-2) 0.8 % GRAN MAT x10^3(ANC) (test code = 9243333295) 5.80 10*3/uL 1.88-7.09 IMM GRAN x10^3 (test code = 1104897832) 0.04 10*3/uL 0.00-0.06 LYMPH x10^3 (test code = 731-0) 2.95 10*3/uL 1.32-3.29 MONO x10^3 (test code = 742-7) 0.50 10*3/uL 0.33-0.92 EOS x10^3 (test code = 711-2) 0.18 10*3/uL 0.03-0.39 BASO x10^3 (test code = 704-7) 0.08 10*3/uL 0.01-0.07 H Lab Interpretation (test code = 37691-8) [facility]normal [facility] MVQT5828-21-52 18:12:00* Test Item Value Reference Range Interpretation Comme nts POCT PREG (test code = 1605) negative On board controls acceptable with C Line (test code = 3574) present POCT PREG LOT # (test code = 3575) [id number] POCT PREG TEST DATE ( test code = 3576) Lab Interpretation (test cod e = 08368-1) Normal [facility] PARTIAL THRMPLAS ZHB9554-06-28 17:01:15* Test Item Value Reference Range Interpretation Comme [facility] APTT Patient (test code = 3173-2) See_Comment [Automated message] The system which generated this result transmitted reference range: 23 - 38 Seconds. The reference range was not used to interpret this result as normal/abnormal. CECIL (test code = CECIL) The [email or web address]] patient population mean normal value for aPTT is 30 seconds. Lab Interpretation (test code = 74990-2) Normal [facility]OLIC PANEL (70282)2022-01-11 16:59:53* Test Item Value Reference Range Interpretation Comme nts NA (test code = 9408645493) 138 mmol/L 135-145 K (test code = 1818285992) 4.9 mmol/L 3.5-5 CL (test code = 5050375324) 108 mmol/L 98-108 CO2 TOTAL (test code = 5260082967) 25 mmol/L 23-31 AGAP (test code = 8060412654) 2-16 BUN (test code = 6590119897) 13 mg/dL 7-23 GLUCOSE (test code = 2864677805) 100 mg/dL 70-110 CREATININE (test code = 8260780713) 1.09 mg/dL 0.5-1.04 H TOTAL BILI (test code = 9042490178) 0.1 mg/dL 0.1-1.1 CALCIUM (test code = 8923046510) 9.0 mg/dL 8.6-10.6 T PROTEIN (test code = 7812267126) 6.4 g/dL 6.3-8.2 ALBUMIN (test code = 9890032602) 3.9 g/dL 3.5-5 ALK PHOS (test code = 8673723933) 119 U/L 34-122 ALTv (test code = 1742-6) 23 U/L 5-35 AST(SGOT) (test code = 9448184447) 24 U/L 13-40 eGFR (test code = 3102428733) mL/min/1.73m2 CECIL (test code = CECIL) Association of [...] or abnormalities in imaging tests). Lab Interpretation (test code = 18540-3) Abnormal [facility] WITH IFTE6243-99-66 16:49:15* Test Item Value Reference Range Interpretation Comme nts WBC (test code = 6690-2) See_Comment [Automated [employer]] The system which generated this result transmitted reference range: 4.30 - 11.10 10*3/?L. The reference range was not used to interpret this result as normal/abnormal. RBC (test code = 789-8) See_Comment [Automated messa ge] The system which generated this result transmitted reference range: 3.93 - 5.25 10*6/?L. The reference range was not used to interpret this result as normal/abnormal. HGB (test code = 718-7) 10.1 g/dL 11.6-15 L HCT (test code = 4544-3) 33.0 % 35.7-45.2 L MCV (test code = 787-2) 74.8 fL 80.6-95.5 L MCH (test code = 785-6) 22.9 pg 25.9-32.8 L MCHC (test code = 786-4) 30.6 g/dL 31.6-35.1 L RDW-SD (test code = 39815-0) 45.5 fL 39-49.9 RDW-CV (test code = 788-0) 16.9 % 12-15.5 H PLT (test code = 777-3) See_Comment H [Automated messa ge] The system which generated this result transmitted reference range: 166 - 358 10*3/?L. The reference range was not used to interpret this result as normal/abnormal. MPV (test code = 30498-6) 10.3 fL 9.5-12.9 NRBC/100 WBC (test code = 3146460838) See_Comment [Automated [employer] ssage] The system which generated this result transmitted reference range: 0.0 - 10.0 /100 WBCs. The reference range was not used to interpret this result as normal/abnormal. NRBC x10^3 (test code = 8045991219) See_Comment [Automated messa ge] The system which generated this result transmitted reference range: 10*3/?L. The reference range was not used to interpret this result as normal/abnormal. GRAN MAT (NEUT) % (test code = 770-8) 55.9 % IMM GRAN % (test code = 2419917436) 0.60 % LYMPH % (test code = 736-9) 33.3 % MONO % (test code = 5905-5) 6.9 % EOS % (test code = 713-8) 2.6 % BASO % (test code = 706-2) 0.7 % GRAN MAT x10^3(ANC) (test code = 8626024661) 4.52 10*3/uL 1.88-7.09 IMM GRAN x10^3 (test code = 7310145813) 0.05 10*3/uL 0-0.06 LYMPH x10^3 (test code = 731-0) 2.70 10*3/uL 1.32-3.29 MONO x10^3 (test code = 742-7) 0.56 10*3/uL 0.33-0.92 EOS x10^3 (test code = 711-2) 0.21 10*3/uL 0.03-0.39 BASO x10^3 (test code = 704-7) 0.06 10*3/uL 0.01-0.07 Lab Interpretation (test code = 09426-1) Abnormal [facility]- [facility] CHEST 1 [id number] 10:53:00 [facility] 1975 Sex: F Name: JEM WILSON [facility] : 1975 Age/S: 45 / F [address] Unit #: [id number] Loc: [place] [address] Phys: Paras Puri MD Acct: [id number] Dis Date: Status: [facility] PHONE #: [phone] Exam Date: 04/13/2021 103 FAX #: Reason: PRE PROCEDURE EXAMS: CPT: [id number] XR CHEST 1 V 99454 Fluoro Time: DAP (Gy m2): Air Kerma [...] PAGE 1 Signed Report Name: JEM WILSON [place] : 1975 Age/S: 45 / F [address] Unit #: [id number] Loc: [place] [address] Phys: Paras Puri MD Acct: [id number] Dis Date: Status: [facility] PHONE #: [phone] Exam Date: 04/13/2021 1035 FAX #: Reason: PRE PROCEDURE EXAMS: CPT: [id number] XR CHEST 1 V 40549 Fluoro Time: DAP (Gy m2): Air Kerma (mGy): (Continued) Technologist: Bryanna Voss RT (R)(CT) Trnscb Date/Time: 04/13/2021 (1053) [email or web address] Orig Print D/T: S: 04/13/2021 (1059) PAGE 2 Signed ReportCOMPREHENSIVE METABOLIC YDBPB7214-79-93 10:51:00* Test Item Value Reference Range Interpretation Comme [...] MG/DL 70-110 N BLOOD UREA NITROGEN (test co de = BUN) 12 MG/DL 7-18 N GLOMERULAR FILTRATION RATE ( test code = GFR) 57 estGFR >60 L [...] 19 Unit/L 12-78 N ALKALINE PHOSPHATASE TOTAL ( test code = ALKP) 141 Unit/L 45-117 H PROTHROMBIN QSWI1942-43-26 10:42:00* Test Item Value Reference Range Interpretation Comme nts PT PATIENT (test code = PTP) 12.2 SECONDS 9.3-12.9 N INTERNATIONAL NORMAL RATIO (test code = INR) 1.09 INR Unit 0.8-1.2 N TARGET INR BY INDICATION Indication INR1. Prophylaxis of venous thrombosis 2.0 - 3.0 (orthopedic surgery), Prophylaxis of venous thrombosis (other than high-risk surgery), Treatment of Deep Vein Thrombosis/Pulmonary Embolism, Prevention of systemic embolism - Tissue heart valves, Acute Myocardial Infarction (to prevent systemic embolism), Valvular heart disease, Acute Myocardial Infarction (to prevent systemic embolism), Valvular heart disease, Atrial Fibrillation, Bileaflet mechanical valve in aortic position.2. Mechanical prosthetic valves (high risk), 2.5 - 3.5 Presence of Lupus Anticoagulant or Antiphospholipid Antibodies, Prevention of systemic embolism - Acute Myocardial Infarction (to prevent recurrent infarct). THROMBOPLASTIN TIME ESSOCBZ6668-08-74 10:42:00* Test Item Value Reference Range Interpretation Comme nts THROMBOPLASTIN TIME PARTIAL (test code = PTT) 41.5 SECONDS 26-35 H CBC W/AUTO WWMH4285-48-88 10:34:00* Test Item Value Reference Range Interpretation Comme nts WHITE BLOOD CELL (test code = WBC) 9.9 K/mm3 3.5-11.0 N RED BLOOD CELL (test code = RBC) 4.62 M/mm3 4.70-6.10 L HEMOGLOBIN (test code = HGB) 11.4 G/DL 10.4-14.9 N HEMATOCRIT (test code = HCT) 36.4 % 31.5-44.1 N MEAN CELL VOLUME (test code = MCV) 78.8 Fl 84.5-98.6 L MEAN CELL HGB (test code = MCH) 24.7 pg 27.0-34.2 L MEAN CELL HGB CONCETRATION (test code = MCHC) 31.3 G/DL 31.5-34.0 L RED CELL DISTRIBUTION WIDTH (test code = RDW) 16.0 SD 11.5-14.5 H PLATELET COUNT (test code = PLT) 367 K/mm3 150-450 N MEAN PLATELET VOLUME (test c ode = MPV) 10.50 fL 7.0-10.5 N NEUTROPHIL % (test code = NT%) 57.9 % 40-76 N IMMATURE GRANULOCYTE % (test code = IG%) 0.4 % 0.0-5.0 N LYMPHOCYTE % (test code = LY%) 32.2 % 20.5-51.1 N MONOCYTE % (test code = MO%) 6.8 % 1.7-9.3 N EOSINOPHIL % (test code = EO%) 2.2 % 0.0-6.0 N BASOPHIL % (test code = BA%) 0.5 % 0.0-2.0 N NUCLEATED RBC % (test code = NRBC%) 0.0 /100WBC% 0.0-1.0 N NEUTROPHIL # (test code = NT#) 5.7 K/mm3 1.8-7.6 N IMMATURE GRANULOCYTE # (test code = IG#) 0.04 x10 3/uL 0.00-0.03 H LYMPHOCYTE # (test code = LY#) 3.2 K/mm3 0.6-3.2 N MONOCYTE # (test code = MO#) 0.7 K/mm3 0.3-1.1 N EOSINOPHIL # (test code = EO#) 0.2 K/mm3 0.0-0.4 N BASOPHIL # (test code = BA#) 0.1 K/mm3 0.0-0.1 N NUCLEATED RBC # (test code = NRBC#) 0.0 K/mm3 0.0-0.1 N MANUAL DIFF REQUIRED (test c ode = MDIFF) NO DIFF/SCN CRITERIA Notes Date/Time Note Provider Source 2023-05-03 13:33:44 /S9LsdU/OTlmNxzdG/ nUBp99hdLRRqY 1lqdyIjABqH2arcpHzNBgtejoVpncx579 07-05-19T13:33:44 Patient's insurance did not cover Symbicort, so sent Wixela as alternative for now. However, informed that she will need close PCP follow up and pulm follow up. Spoke to patient again on 05/05. She was not able to establish with Dr. Moyer's pulm clinic due to her insurance not covering visit. Encouraged her to establish with PCP in network and have close follow up with them. Discussed warning signs for going to ED such as severe SOB and chest pain.ROBERTO Mccarthy-1Internal Medicine 80056-3Jgnlmudec encounter VtsiQG6542-52-70Y92:46:30Telephon e encounter NoteTXT1.2.840.742442.1.13.104.2. 7.2.326965|[id number] for patient vbxg10076-5ZtzwOFYYZSTFWAFKiqbsky ed C-CDA narrative [address] FouxBnbbfmeomBdulfdottHSXI0932502 862NEXSNDTZBAGBLXQRJDNWVJ5734-86- 21T11:46:301.2.840.249977.1.72.3. 15|1.2.840.392411.1.13.104.2.7.2. 727879_[id number] [facility] 2023-04-24 13:22:48 zVjmN8Ch22Leh4b2MJt+ xTW1sA052cXxm Bm0Yyugv3bNNM/aAB3ijNoWpG3uWeRF75 07-05-10T13:22:48 Pharmacy comment: Alternative Requested:NOT COVERED BY INSURENCE PLEASE CHANGE. 59984-9Pblnebyza encounter GnhzXU7447-83-11M94:22:57Telephon e encounter NoteTXT1.2.840.112055.1.13.104.2. 7.2.780216|[id number] for patient mghk72620-9LbtkKWVZOKPPMEWAuzgiiw ed C-CDA narrative mqyh194452838WfdvmenwGerber Workman MA[address] EksrHdnufvbaySrztiismpRJNW3275027 763AVRXIYHRGFAAIXNNBBGCQL2630-47- 10T13:22:571.2.840.608049.1.72.3. 15|1.2.840.357667.1.13.104.2.7.2. 727879_[id number] Gerber Workman MA [facility] 2023-01-18 20:17:00 izL/xxX45c3BmmY6S3s0 kXL3CPy5XPHTo Dhd/v/W8Zq7OFgaVytXhZemNU3XLBFy68 05-02-05T20:17:00 Awake, alert oriented X4, respiratory even and [...] ER noted upon dischargePt [facility] 39789-8Qehdraane department UsuoXE5636-32-39O04:54:42[facility] NoteTXT1.2.840.964893.1.13.104.2. 7.2.615623|[id number] for patient axev16687-8UcbgST290897134Jknrbj J Lm RN[address]TXTX[address] 133NBHROHYCEUKMMWRNDGCLOH3691-39- 05T22:54:421.2.840.436935.1.72.3. 15|1.2.840.247263.1.13.104.2.7.2. [id number] Christina Joyce Amato RN [facility] 2023-01-18 13:30:21 3WMB0j0lOS1NmtEYxYn7 0QGkDih7FtMPR ADItXdYqHZ6rvWkKCwTMu8V1kbI659b62 05-02-053:30:21 Patient reports that she feels like her legs are swelling since yesterday. Patient also reports that she feels like she can't breathe right. Patient coughing at triage and states that the cough started today. 31434-8Ubevzalie department Triage eadkDU5713-42-45O73:33:02[facility] Triage noteTXT1.2.840.204159.1.13.104.2. 7.2.346534|[id number] for patient nnsc73870-8Zmhpbudip department [id number] M Hayes RN[address]TXTX[address] 036OYYYEARNZFNIHSZHGXWYQP4965-41- 05T13:33:021.2.840.972901.1.72.3. 15|1.2.840.867507.1.13.104.2.7.2. [id number] Zaina Samuels RN [facility] [[email or web address]] - [facility] 2023-01-18 13:28:00 aAxvY5I+RXIRlQI1hCUa s1xs5BLZW24Cd DqBzHJ2Ch3Rc8VdwDH9ic69ZnMWQ1pe67 05-02-05T13:28:00Associated Order(s): EKG-12 Lead ROUTINE ONCEPre-Procedure Diagnose(s): Dyspnea, unspecified typePost-Procedure Diagnose(s): Dyspnea, unspecified type [facility] [[email or web address]] Emergency Department NotePatient Name: Jem Perez JunaidDate of : 1975 47 year old femaleTreatment Room: [place] [address]/ELOQRT16Hoivxxp Record Number: [id number] Care Phys[facility]: Family [5]Mode of Arrival: Personal [...] 0.01 - 0.07 10*3/uL COMP. METABOLIC PANEL (16436) - Abnormal NA 136 135 - 145 [...] TESTING) CBC WITH DIFF COMP. METABOLIC PANEL (53646) LIPASE TROPONIN I N-TERMINAL PRO-BNP THYROID STIMULATING [...] Provider Eval:ED Events Date/Time Event User Comments 01/18/23 133 Medical Screening Begins MAYCO DEL RIO MD -- 01/18/23 133 First Provider Evaluation MAYCO DEL RIO MD -- No notes of EC Admission Criteria type on file.ED COURSEED Course as of 01/18/231942Jan 18, 20231806 Reassess. Symptoms improved. Resting comfortably [RK] ED Course User Index[RK] Mayco Del Rio MD Diagnosis/Impression as of 01/18/231942 Dyspnea, unspecified type Chest pain, unspecified type Bronchitis Edema, unspecified type Procedures: EKG-12 Lead ROUTINE ONCEDate/Time: 01/18/2023 7:41 PMPerformed by: Mayco Del Rio MDAuthorized by: Mayco Del Rio MD ECG reviewed by ED Physician in the absence of a motorcycle maker: yes Previous ECG: Previous ECG: UnavailableInterpretation: Interpretation: [...] Follow-up:PCPElectronically signed by: Mayco Del Rio MD01/18/231942 [id number] Emergency department YxmqEB8422-86-86C17:43:34Physicia n Emergency department [id number]. [id number] for patient vsrx30324-8Skfolatif department Note[address] Vw[id number] 675YMYWRZIXBKMIEGIQFAGYOE9708-68- 05T19:43:341.2.840.616545.1.72.3. 15|1.2.840.473544.1.13.104.2.7.2. [id number] [facility] 2021-04-13 12:57:00 [id number] WhWxnzYyvT8Cp SJ6mGgcpbug61A+QQjGbe9cXlZPl/i36e XHoJrIKCP+8550-00-52Y65:57:00 [facility] ([facility])DT Operative NoteREPORT#:[id number] REPORT STATUS: SignedDATE:04/13/21 TIME:1257 PATIENT: JEM WILSON UNIT #: [id number]#: [id number] ROOM/BED:: 73 AGE: 45 SEX: F ATTEND: [facility] AUTHOR: Paras Puri MD * ALL edits or amendments must be made on the electronic/computer document * Operative Report Operative NoteNote:Procedure Date: 04/13/2021 Procedure:Diagnostic cardiac catheterization, left ventriculogram, and selective coronary angiograms Indication:Progressive angina failed optimized medical management Procedure details:Following informed consent and detailed discussion of procedural risks and benefits with the patient and family that preceded [facility] then followed by adequate moderate sedation induction [...] tolerated well the procedure, 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 Results: I. Diagnostic angiography [...] were addressed satisfactorily at 1427 RPT #: [id number] OF REPORT OPOperative duthoh1406-35-82X63:57:00L.PDOC20 [id number] for patient rpbwMPPUFQESCQBVUF3032-08-01F90:2 7:55 [facility] 2021-04-13 10:31:00 [id number] wFcOsbvbfQfZS l+AkBw10uQwHka8P2Jr5+LLX/ZOZBbnU2 1zleKHuBG51702-50-66H17:31:171777 -0002 [facility] [address] [place] [address] PATIENT NAME: JME WILSON ADMIT DATE: 04/13/21ACCOUNT NO: [id number] ROOM NO: AGE: 45 REPORT TYPE: eELECTROCARDIOGRAM SEX: F ADMITTING PHYSICIAN: ATTENDING PHYSICIAN: Paras Puri MD Order:[id number] Reason : PRE OP Test Date/Time Stamp:TueApr 13 2021 10:31:39Blood Pressure : / mmHGVent. Rate : 081 BPM Atrial Rate : 081 BPM P-R Int : 136 ms QRS Dur : 084 ms QT Int : 388 ms P-R-T Axes : 060 083 071 degrees QTc Int : 450 ms Normal sinus rhythmNormal ECGNo previous ECGs availableConfirmed by JESÚS BLACKWELL, MANDY ([id number]) on 04/16/2021 12:41:39 PM Referred By: Paras Puri Confirmed by:MANDY ESPINOSA MD at 1241 PATIENT NAME: JEM WILSON . [id number] for patient trrkGQAFBHXMSZYRSP0984-05-77O27:2 8:15 [facility]
--- NOTE | 2023-08-06 16:40 | RAD REPORT ---
EXAM DESCRIPTION: RAD - Chest Single View - 08/06/2023 4:32 pm CLINICAL HISTORY: CHEST PAIN COMPARISON: Chest Single View dated 04/09/2023; Chest Single View dated 07/01/2022; Chest Single View dated 05/20/2021; Chest Single View dated 02/28/2021 FINDINGS: Lines: None. Lungs: No evidence of edema or pneumonia. Pleural: No significant pleural effusions or pneumothorax. Cardiac: The heart size is within normal limits. Mediastinum: Within normal limits. Bones: No acute fractures. Other: None IMPRESSION: No acute cardiopulmonary disease.
--- NOTE | 2023-08-06 16:49 | RAD REPORT ---
EXAM DESCRIPTION: CT - Head Brain Wo Cont - 08/06/2023 4:42 pm CLINICAL HISTORY: DIZZINESS COMPARISON: Head Brain Wo Cont dated 06/15/2022; Head Brain Wo Cont dated 06/18/2019 TECHNIQUE: All CT scans are performed using dose optimization technique as appropriate and may inclu de automated exposure control or mA/KV adjustment according to patient size. FINDINGS: No intracranial hemorrhage, hydrocephalus or extra-axial fluid collection.No areas of brai n edema or evidence of midline shift. The paranasal sinuses and mastoids are clear. The calvarium is intact. IMPRESSION: No acute intracranial abnormality.
[2023-08-06 17:08] LABS: Absolute Basophils 0.1 K/uL (0-0.5); Absolute Eosinophils 0.2 K/uL (0-0.5); Absolute Lymphocytes (CBC) 2.1 K/uL (0.7-4.9); Absolute Monocytes 0.6 K/uL (0.1-1.3); Absolute Neutrophil 7.9 K/uL (1.8-8.0); Eosinophils % 1.5 % (0-4.4); Hematocrit 35.8 % (36.0-45.0); Lymphocytes % 19.1 % (15.3-44.8); MCH 27.4 pg (27.0-35.0); MCHC 33.4 g/dL (32.0-36.0); MPV 8.5 fL (7.6-11.3); Monocytes % 5.3 % (3.3-12.3); Neutrophils % 73.1 % (41.7-73.7); Nucleated Red Blood Cells % 0.1 % (0-0); Platelets 369 thou/uL (152-406); RBC Red Blood Cell Count 4.37 M/uL (3.86-4.86); Red Cell Distribution Width 15.2 % (12.1-15.2)
[2023-08-06 17:09] LABS: PT Prothrombin Time 11.8 SECONDS (9.5-12.5); Protime INR 1.07
[2023-08-06 17:25] LABS: Troponin High Sensitivity 3.7 pg/mL (<58.9)
--- NOTE | 2023-08-06 19:44 | RAD REPORT ---
EXAM DESCRIPTION: US - Extrem Venous W Compress Errol - 08/06/2023 7:37 pm CLINICAL HISTORY: PAIN COMPARISON: EXT VENOUS W COMPRESSION ERROL dated 07/11/2014 TECHNIQUE: Real-time sonographic evaluation of the lower extremity deep venous systems was performed using color Doppler, grayscale, and compression. FINDINGS: Bilateral lower extremities. Normal compressibility, flow augmentation, phasic flow and spontaneous flow is identified in both the left and right lower extremity deep venous systems. No intraluminal filling defects seen. IMPRESSION: No DVT in either lower extremity.
--- NOTE | 2023-08-06 20:04 | RAD REPORT ---
EXAM DESCRIPTION: CT - Chest For Pe Angio - 08/06/2023 7:52 pm CLINICAL HISTORY: Chest pain;Dyspnea COMPARISON: Chest For Pe Angio dated 04/09/2023; Chest For Pe Angio dated 10/30/2019; CTANGIO CHEST F OR PE dated 07/19/2015; CTANGIO CHEST FOR PE dated 07/10/2014 TECHNIQUE: Dynamically enhanced axial 3 mm thick images of the chest were obtained during administra tion of <100> mL Isovue 370 IV contrast. Coronal and oblique reconstruction images were generated and reviewed. Exam utilizes a protocol for optimal evaluation of pulmonary arterial tree. Maximum intensity projections 3D imaging was utilized All CT scans are performed using dose optimization technique as appropriate and may include automated exposure control or mA/KV adjustment according to patient size. FINDINGS: Chest Wall: No suspicious thyroid nodules or pathologic lymphadenopathy. Lungs: Left lower lobe pulmonary nodule in the anterior basal segment measuring 6 millimeters is unch anged. This is benign and mosaic lung attenuation. Pleura: No significant effusions or pneumothorax. Mediastinum/elidia: No pathologic lymphadenopathy. Pulmonary arteries/Aorta: No filling defect identified. No aortic aneurysm. Suboptimal opacification of the segmental and subsegmental pulmonary arteries. Heart: No significant pericardial effusion. Normal heart size. Upper abdomen: No acute abnormality.Hepatic steatosis Bones: No acute abnormality. IMPRESSION: Limited evaluation for pulmonary embolism due to suboptimal contrast opacification of th e pulmonary arteries. No central pulmonary embolism identified. No alternate acute process identified . Mosaic lung attenuation could indicate small airways disease.
--- NOTE | 2023-08-06 20:05 | EDPHYS ---
Physician Documentation [facility] Name: April Ford Age: 47 yrs Sex: Female : 1975 Arrival Date: 08/06/2023 Time: 16:05 Bed 8 Private MD: ED Physician Yogesh Davidson HPI: 08/05 18:24 This 47 yrs old Female presents to ER via EMS with complaints of Dizziness, Shortness charlotte Of Breath - shaky, Chest Pain. 18:24 The patient presents with dizziness, feeling faint, generalized weakness, charlotte lightheadedness. Onset: The symptoms/episode began/occurred just prior to arrival. 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 - Social history:: Smoking status: unknown. ROS: 18:25 Constitutional: Negative for fever, chills, and weight loss, Eyes: Negative for injury, charlotte pain, redness, and discharge, ENT: Negative for injury, pain, and discharge, Neck: Negative for injury, pain, and swelling, Abdomen/GI: Negative for abdominal pain, nausea, vomiting, diarrhea, and constipation, Back: Negative for injury and pain, : Negative for injury, bleeding, discharge, and swelling, MS/Extremity: Negative for injury and deformity, Skin: Negative for injury, rash, and discoloration, Psych: Negative for depression, anxiety, suicide ideation, homicidal ideation, and hallucinations, Allergy/Immunology: Negative for hives, rash, and allergies, Endocrine: Negative for neck swelling, polydipsia, polyuria, polyphagia, and marked weight changes, Hematologic/Lymphatic: Negative for swollen nodes, abnormal bleeding, and unusual bruising, 18:25 Cardiovascular: Positive for chest pain, palpitations, 18:25 Respiratory: Positive for cough, shortness of breath, 18:25 Neuro: Positive for headache, weakness, Exam: 18:25 Constitutional: This is a well developed, well nourished patient who is awake, alert, charlotte and in no acute distress. Head/Face: Normocephalic, atraumatic. Eyes: Pupils equal round and reactive to light, extra-ocular motions intact. Lids and lashes normal. Conjunctiva and sclera are non-icteric and not injected. Cornea within normal limits. Periorbital areas with no swelling, redness, or edema. ENT: Nares patent. No nasal discharge, no septal abnormalities noted. Tympanic membranes are normal and external auditory canals are clear. Oropharynx with no redness, swelling, or masses, exudates, or evidence of obstruction, uvula midline. Mucous membranes moist. Neck: Trachea midline, no thyromegaly or masses palpated, and no cervical lymphadenopathy. Supple, full range of motion without nuchal rigidity, or vertebral point tenderness. No Meningismus. Chest/axilla: Normal chest wall appearance and motion. Nontender with no deformity. No lesions are appreciated. Cardiovascular: Regular rate and rhythm with a normal S1 and S2. No gallops, murmurs, or rubs. Normal PMI, no JVD. No pulse deficits. Abdomen/GI: Soft, non-tender, with normal bowel sounds. No distension or tympany. No guarding or rebound. No evidence of tenderness throughout. Back: No spinal tenderness. No costovertebral tenderness. Full range of motion. Skin: Warm, dry with normal turgor. Normal color with no rashes, no lesions, and no evidence of cellulitis. MS/ Extremity: Pulses equal, no cyanosis. Neurovascular intact. Full, normal range of motion. Neuro: Awake and alert, GCS 15, oriented to person, place, time, and situation. Cranial nerves II-XII grossly intact. Motor strength 5/5 in all extremities. Sensory grossly intact. Cerebellar exam normal. Normal gait. 18:25 ECG was reviewed by the Attending Physician. 18:25 Respiratory: the patient does not display signs of respiratory distress, Respirations: normal, Breath sounds: bronchial sounds, rhonchi, that are mild, are scattered, stridor, is not appreciated, Respiratory rate: 16 Vital Signs: 16:11 BP 137 / 91; Pulse 83; Resp 16; Temp 98.1; Pulse Ox 97% on R/A; iw 19:00 BP 120 / 78; Pulse 67; Resp 16; Pulse Ox 97% on R/A; iw 20:25 BP 119 / 46; Pulse 79; Resp 16; Pulse Ox 98% on R/A; jb4 [place] Coma Score: 18:27 Eye Response: spontaneous(4). Motor Response: obeys commands(6). Verbal Response: charlotte oriented(5). Total: 15. MDM: 16:27 Patient medically screened. charlotte 18:27 Differential diagnosis: cluster headache, abnormal EKG, acute myocardial infarction, charlotte acute pericarditis, anxiety, coronary artery disease chest wall pain, congestive heart failure esophagitis, peptic ulcer disease, pericarditis, pneumonia, pulmonary embolus, stable angina, thoracic aortic disection, unstable angina, hypertensive headache, hypoglycemia, hyponatremia, intracerebral hemorrhage, migraine, sinusitis, subarachnoid bleed, subdural hematoma, temporal arteritis, tension headache, traumatic injuries, trigeminal neuralgia. HEART Score: History: Slightly Suspicious (0), ECG: Normal (0), Age: > 45 and < 65 years (1), Risk Factors: > or = 3 Risk factors for atherosclerotic disease (2), [Hypercholesterolemia] [Hypertension] [DM] [Active Smoker] [+ Family HX] [Obesity] Troponin: < or = 1 x Normal Limit (0). Differential diagnosis: cardiac arrhythmia, CVA, generalized weakness, GI bleed, hypovolemia, idiopathic dizziness, near-syncope, sepsis. The patient was given aspirin in the Emergency Department. KATHY Risk Score: 1 - Three or more CAD risk factors, TOTAL SCORE = 1. Data reviewed: vital signs, nurses notes, lab test result(s), EKG, radiologic studies, CT scan, plain films. Consideration of Admission/Observation Escalation of care including admission/observation considered. I considered the following discharge prescriptions or medication management in the emergency department Medications were administered in the Emergency Department. See 16:21 Order name: Basic Metabolic Panel; Complete Time: 18:20 iw 08/05 16:21 Order name: CBC with Diff; Complete Time: 18:20 iw 08/05 16:21 Order name: Troponin HS; Complete Time: 18:20 iw 08/05 16:30 Order name: PT-INR; Complete Time: 18:20 charlotte 08/05 16:45 Order name: NT PRO-BNP; Complete Time: 18:20 EDMS 08/05 16:45 Order name: Lipase; Complete Time: 18:20 EDMS 08/05 18:21 Order name: Troponin High Sensitivity: 630 PM; Complete Time: 19:29 charlotte 08/05 16:21 Order name: XRAY Chest (1 view); Complete Time: 18:20 iw 08/05 16:21 Order name: CT Head Brain wo Cont; Complete Time: 18:20 iw 08/05 18:23 Order name: US Extremity Venous W Compression Errol; Complete Time: 19:49 charlotte 08/05 18:23 Order name: CT Chest For PE Angio charlotte 08/05 16:21 Order name: EKG; Complete Time: 16:21 iw 08/05 16:21 Order name: Cardiac monitoring; Complete Time: 17: iw 08/05 16:21 Order name: EKG - Nurse/Tech; Complete Time: 17: iw 08/05 16:21 Order name: IV Saline Lock; Complete Time: 17: iw 08/05 16:21 Order name: Labs collected and sent; Complete Time: 17: iw 08/05 16:21 Order name: O2 Per Protocol; Complete Time: 17: iw 08/05 16:21 Order name: O2 Sat Monitoring; Complete Time: 17:01 iw EC:25 Rate is 84 beats/min. Rhythm is regular. QRS [place] is Normal. SD interval is normal. QRS charlotte interval is normal. QT interval is normal. No Q waves. T waves are Normal. No ST changes noted. Clinical impression: NSR w/ Non-specific ST/T Changes and No evidence of ischemia. Interpreted by me. Reviewed by me. Administered Medications: 18:54 Drug: metoCLOPramide IVP 10 mg IVP once; over 1 to 2 minutes Route: IVP; Site: right iw antecubital; 19:30 Follow up: Response: No adverse reaction iw 18:54 Drug: fentaNYL (PF) IVP 50 mcg IVP once Route: IVP; Site: right antecubital; iw 19:30 Follow up: Response: No adverse reaction iw 18:55 Drug: Ketorolac IVP 30 mg IVP once Route: IVP; Site: right antecubital; iw 19:30 Follow up: Response: No adverse reaction; Pain is decreased iw Disposition Summary: 08/06/23 20:05 Discharge Ordered Notes: Location: Home char[place] Problem: new(08/06/23 20:05) charlotte Symptoms: have improved(08/06/23 20:05) charlotte Condition: Stable(08/06/23 20:05) charlotte Diagnosis - Syncope Near charlotte - Dyspnea charlotte - Tobacco abuse counseling charlotte - Tobacco use charlotte - Headache charlotte - Chest pain, unspecified(08/06/23 20:05) charlotte Followup: charlotte - With: Private Physician - When: 2 - 3 days - Reason: Recheck today's complaints, Continuance of care, Re-evaluation by your physician Followup: charlotte - With: Robin Jesus MD - When: 2 - 3 days - Reason: Recheck today's complaints, Re-evaluation by your physician Discharge Instructions: - Discharge Summary Sheet charlotte - Nonspecific Chest Pain, Adult charlotte - General Headache Without Cause charlotte - Steps to Quit Smoking charlotte - Weakness charlotte - Nonspecific Chest Pain, Adult, Blxr-gp-Vocz charlotte - Steps to Quit Smoking, Pgrg-ah-Ezui charlotte - Weakness, Haxw-pl-Sxfv charlotte - Aspirin and Your Heart charlotte - General Headache Without Cause, Iqsb-vx-Mwmh charlotte Forms: - Work release form kl - Medication Reconciliation Form charlotte - Thank You Letter charlotte - Antibiotic Education charlotte - Prescription Opioid Use charlotte - Patient Portal Instructions charlotte - Leadership Thank You Letter [facility] Prescriptions: - ondansetron 4 mg Oral Tablet,disintegrating - take 1 tablet ORAL route every 6-8 hours for 5 days; 20 tablet; Refills: 0, charlotte Product Selection Permitted Signatures: Dispatcher [employer] EDMS Yogesh Davidson MD MD cha Williams, Irene RN RN iw Corrections: (The following items were deleted from the chart) 16:45 16:30 LIPASE+C.LAB.BRZ ordered. EDNE EDMS 16:45 16:31 PROBNP+C.LAB.BRZ ordered. EDNE EDMS 19:29 19:29 TO [facility] charlotte charlotte 19:29 19:29 [facility] charlotte charlotte 19:29 19:29 Higher level of care charlotte charlotte 19:29 19:29 Fair charlotte charlotte 19:29 19:29 new charlotte charlotte 19:29 19:29 have improved charlotte charlotte 19:29 19:29 Chest pain, unspecified charlotte charlotte 19:29 19:29 Epigastric abdominal tenderness charlotte charlotte 19:29 19:29 Calculus of bile duct with cholecystitis, unspecified, with obstruction - 1.9 CM charlotte charlotte
--- NOTE | 2023-08-06 20:05 | ER ---
Nurse's Notes [facility] Name: April Ford Age: 47 yrs Sex: Female : 1975 Arrival Date: 08/06/2023 Time: 16:05 Bed 8 Private MD: Diagnosis: Syncope Near;Dyspnea;Tobacco abuse counseling;Tobacco use;Headache;Chest pain, unspecified Presentation: 08/05 16:11 Chief complaint: EMS states: pt broke out in sweats, felt dizzy, felt SOB, chest iw tightness, feels numbness in her feet. Coronavirus screen: At this time, the client does not indicate any symptoms associated with coronavirus-19. Ebola Screen: Patient negative for fever greater than or equal to 101.5 degrees Fahrenheit, and additional compatible Ebola Virus Disease symptoms Patient denies exposure to infectious person. Patient denies travel to an Ebola-affected area in the 21 days before illness onset. No symptoms or risks identified at this time. Initial Sepsis Screen: Does the patient meet any 2 criteria? No. Patient's initial sepsis screen is negative. Does the patient have a suspected source of infection? No. Patient's initial sepsis screen is negative. Risk Assessment: Do you want to hurt yourself or someone else? Patient reports no desire to harm self or others. Onset of symptoms was August 06, 2023. 16:11 Method Of Arrival: EMS: [facility] iw 16:11 Acuity: BALDEMAR 3 iw Triage Assessment: 16:15 General: Appears in no apparent distress. comfortable, Behavior is calm, cooperative. iw Respiratory: Reports shortness of breath Onset: The symptoms/episode began/occurred just prior to arrival, the patient has mild shortness of breath. 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 - Social history:: Smoking status: unknown. Screenin:01 [facility] ED Fall Risk Assessment (Adult) History of falling in the last 3 months, iw including since admission No falls in past 3 months (0 pts). Abuse screen: Denies threats or abuse. Denies injuries from another. Nutritional screening: No deficits noted. Tuberculosis screening: No symptoms or risk factors identified. Assessment: 16:15 General: Appears uncomfortable, Behavior is anxious. Pain: Complains of pain in head iw and chest. Neuro: Level of Consciousness is awake, alert, obeys commands, Oriented to person, place, time, situation, Moves all extremities. Cardiovascular: Reports chest pain, Rhythm is regular. Respiratory: Airway is patent Respiratory effort is even, unlabored, Breath sounds are clear bilaterally. GI: Abdomen is flat. Derm: Skin is intact, is healthy with good turgor. Musculoskeletal: Range of motion: intact in all extremities. 17:01 Reassessment: pt c/o headache , requesting pain medicine. iw 19:00 Reassessment: Patient appears in no apparent distress at this time. Patient and/or iw family updated on plan of care and expected duration. Pain level reassessed. 20:25 Reassessment: Patient appears in no apparent distress at this time. Patient and/or jb4 family updated on plan of care and expected duration. Pain level reassessed. Patient is alert, oriented x 3, equal unlabored respirations, skin warm/dry/pink. Vital Signs: 16:11 BP 137 / 91; Pulse 83; Resp 16; Temp 98.1; Pulse Ox 97% on R/A; iw 19:00 BP 120 / 78; Pulse 67; Resp 16; Pulse Ox 97% on R/A; iw 20:25 BP 119 / 46; Pulse 79; Resp 16; Pulse Ox 98% on R/A; jb4 [place] Coma Score: 18:27 Eye Response: spontaneous(4). Motor Response: obeys commands(6). Verbal Response: charlotte oriented(5). Total: 15. ED Course: 16:09 Patient arrived in ED. iw 16:12 Triage completed. iw 16:12 Arm band placed on. iw 16:15 Patient has correct armband on for positive identification. Provided Education on: labs.iw 16:21 EKG done, by ED staff, reviewed by Yogesh Davidson MD. iw 16:27 Yogesh Davidson MD is Attending Physician. charlotte 16:34 XRAY Chest (1 view) In Process Unspecified. EDMS 16:44 CT Head Brain wo Cont In Process Unspecified. EDMS 17:00 Danielle Workman, RN is Primary Nurse. iw 17:00 Initial lab(s) drawn, by me, sent to lab. Inserted saline lock: 20 gauge in right iw antecubital area, using aseptic technique. Blood collected. 19:01 Repeat lab(s) drawn. by me, sent to lab. iw 19:16 No provider procedures requiring assistance completed. iw 19:39 US Extremity Venous W Compression Errol In Process Unspecified. EDMS 19:53 CT Chest For PE Angio In Process Unspecified. EDMS 20:05 Robin Jesus MD is Referral Physician. charlotte 20:25 IV discontinued, intact, bleeding controlled, No redness/swelling at site. Pressure jb4 dressing applied. Administered Medications: 18:54 Drug: metoCLOPramide IVP 10 mg IVP once; over 1 to 2 minutes Route: IVP; Site: right iw antecubital; 19:30 Follow up: Response: No adverse reaction iw 18:54 Drug: fentaNYL (PF) IVP 50 mcg IVP once Route: IVP; Site: right antecubital; iw 19:30 Follow up: Response: No adverse reaction iw 18:55 Drug: Ketorolac IVP 30 mg IVP once Route: IVP; Site: right antecubital; iw 19:30 Follow up: Response: No adverse reaction; Pain is decreased iw Medication: 17:01 VIS not applicable for this client. iw Outcome: 19:29 ER care complete, transfer ordered by . charlotte 20:05 Discharge ordered by MD. charlotte 20:25 Discharged to home ambulatory, jb4 20:25 Condition: stable 20:25 Discharge instructions given to patient, Instructed on discharge instructions, follow up and referral plans. medication usage, Demonstrated understanding of instructions, follow-up care, medications, Prescriptions given X 1, 20:26 Patient left the ED. jb4 20:32 Patient left the ED. huy Signatures: Dispatcher [employer] EDBrandy Dc RN RN kl Anderson, Corey, MD MD cha Williams, Irene, RN RN Francisco J Cespedes RN RN jb4 Corrections: (The following items were deleted from the chart) 18:04 16:11 BP 137 / 91; Pulse 83bpm; Resp 16bpm; Pulse Ox 97% RA; iw iw 20:26 20:25 BP 152 / 101; Pulse 83bpm; Resp 16bpm; Pulse Ox 100% RA; jb4 jb4
[2023-08-06 20:36] VITALS: TEMP 98.1
[2023-08-06 21:02] VITALS: BP 119/46; O2SAT 98
--- NOTE | 2023-08-08 14:20 | EKG ---
Test Date: 2023-08-06 Test Time: 16:08:04 Systems Protection Technician: MELITA MEASUREMENT RESULTS: Intervals: Rate: 84 PA: 130 QRSD: 86 QT: 386 QTc: 456 [place]: P: 50 PA: 130 QRS: 70 T: 70 INTERPRETIVE STATEMENTS: Normal sinus rhythm with sinus arrhythmia Normal ECG Compared to ECG 04/09/2023 18:57:19 Sinus tachycardia no longer present Electronically Signed On 08-08-23 14:14:51 CDT by Robin Jesus
== END ==
LOC: ER 16:05
DX: R55 Syncope and collapse (principal); R06.00 Dyspnea, unspecified; R51.9 Headache, unspecified; R07.9 Chest pain, unspecified; Z71.6 Tobacco abuse counseling; Z72.0 Tobacco use
CPT/HCPCS: 36415; 70450; 71045; 71275; 80048; 83690; 83880; 84484; 85025; 85610; 93005; 93970; 96374; 96375; 99284; J2765; J3010; Q9967

== ENCOUNTER 2023-12-04 13:14 | Emergency (ER) | payer BC ==
--- OUTSIDE RECORDS SUMMARY | 2023-12-04 13:25 | XMS REPORT | Continuity of Care Document ---
Author Name Unknown Address [address] [facility] [address] [place] [address] [facility] thconnect Address [address] 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 Role Phone SALAS Hanna [facility], [facility] Care Physician Unavailable HIREN MOYER Attending Clinician Ling Smyth MD Attending Clinician [phone] Mejia IVY, Apurva Medellin Attending Clinician [phone] DAVINA BOYD Attending Clinician Unavailable Mohamud Jacob MD Attending Clinician Jair Reynolds MD Attending Clinician [phone] Davina Boyd MD Attending Clinician [phone] Leonor OT, Josef S Attending Clinician Unavail able HEMAALE, MAYCO ERASTO Attending Clinician Unavaillory Del Rio MD, Mayco Killian Attending Clinician [phone] Shefali Whitney PTA Attending Clinician Unavail Garrett Whelan MD Attending Clinician [phone] GARRETT HERRERA Attending Clinician Unavaillory Greer PTA, Mayco Hanna Attending Clinician Unavaila claire Clarke PTA, Sandra Retana Attending Clinician Unav geethaable Abdon Corrales PT, Fabiana Attending Clinician Un available Doctor Unassigned, [place] Attending Clinician U navailBLAISE Casey Attending Clinician Unavailable Blaise Salas MD Attending Clinician [phone] PATRICK SINGH Attending Clinician Unavailable Patrick Singh MD Attending Clinician [phone] Paras Puri Attending Clinician Unavailable JAIR REYNOLDS Admitting Clinician Unavailable Jair Reynolds MD Admitting Clinician [phone] MAYCO DEL RIO Admitting Clinician UnavailBLAISE Weinstein Admitting Clinician Unavailable PATRICK SINGH Admitting Clinician Unavailable Dianne Stewart Admitting Clinician Unavailable Payers Payer Name Policy Type Policy Number Effective Date Expirati on Date Source HIM [facility] O [id number] 2023 00:00:00 [employer] [id number] 2022 00:00:00 DARS DISABILITY DETERMINATION [facility] [id number] 2014 00:00:00 Problems Condition Name Condition Details Condition Category Status Onset Date Resolution Date Last Treatment Date Treating Clinician Comments Source Morbid obesity with body mass index of 40.0-49.9 Morbid obesity with body mass index of 40.0-49.9 Disease Active 2022-05 00:00: 00 [facility] Status asthmaticu s Status asthmaticu s Disease Active 2022-05 00:00: 00 [facility] Obesity (BMI 30-39.9) Obesity (BMI 30-39.9) Disease Active 2022-05 00:00: 00 [facility] No known active problems No known active problems Disease [facility] Allergies, Adverse Reactions, Alerts Allergy Name Allergy Type Status Severity Reaction(s) Onset Date Inactive Date Treating Clinician Comments Source BENADRYL ALLERGY DECONGES TANT DRUG Active High Swelling 08-18 00:00: 00 [facility] Benadryl Allergy Deconges tant Propensi ty to adverse reaction s Active Swelling 4 00:00: 00 [facility] diphenhy dramine DA Active SV HIVES AROUND HER BODY 2020-05 00:00: 00 [facility] Penicill ins DA Active U UNKNOWN ACCORDING TO PATIENT BEING TOLD SINCE SHE WAS A CHIL 2020-05 00:00: 00 [facility] PENICILL IN DRUG INGREDI Active Unknown-Cmnt 06-23 00:00: 00 [facility] Penicill in Propensi ty to adverse reaction s Active Unknown - See comments 06-23 00:00: 00 Was told as a child [facility] NO KNOWN ALLERGIE S Drug Class Active [facility] Social History Social Habit Start Date Stop Date Quantity Comments Source Gender identity [facility] Sexual orientation [facility] History of tobacco use Passive smoker [facility] Tobacco use and exposure 2023-04-16 00:00:00 2023-04-16 00:00:00 Smokeless tobacco non-user [facility] History of Social function 2023-04-14 00:00:00 2023-04-14 00:00:00 [facility] Exposure to SARS-CoV-2 (event) 2022-01-01 00:00:00 2022-01-11 10:34:00 Not sure [facility] Sex Assigned At 1975 00:00:00 1975 00:00:00 [facility] Smoking Status Start Date Stop Date Source Tobacco smoking consumption unknown [facility] Ex-smoker 2023-04-16 00:00:00 2023-04-16 00:00:00 [facility] Medications Ordered Medication Name Filled Medication Name Start Date Stop Date Current Medication? Ordering Clinician Indication Dosage Frequency Signature (SIG) Comments Components Source Fluticasone -Salmeterol (WIXELA INHUB) 500-50 mcg/dose inhalation disk 2022-05 00:00: 00 Yes [id number] 1{puff} Inhale 1 Puff every 12 (twelve) hours. Use twice daily for maintenanc e. May also use as needed for rescue. [facility] amLODIPine 10 mg tablet 2022-05 00:00: 00 Yes [id number] 10mg Take 1 tablet by mouth in the morning. [facility] hydroCHLORO thiazide 12.5 mg capsule 2022-05 00:00: 00 Yes [id number] 12.5mg Take 1 capsule by mouth in the morning. [facility] montelukast 10 mg tablet 2022-05 00:00: 00 04-20 00:00 :00 No [id number] 10mg Take 1 tablet by mouth in the morning. [facility] albuterol (VENTOLIN) inhaler 2 Puff 2022-05 20:45: 00 Yes 2{puff} 2 Puff, Inhalation , Q4H, First dose on Tue04/20/23 at 1600, Until Discontinu ed, Routine [facility] naproxen (NAPROSYN) 500 mg tablet 2022-05 00:00: 00 Yes [id number] 500mg Take 1 tablet by mouth every 8 (eight) hours as needed for Pain (scale 4-6). [facility] budesonide- formoteroL 160-4.5 mcg/actuati on inhaler 2022-05 00:00: 00 05-03 00:00 :00 No [id number] 2{puff} Inhale 2 Puffs in the morning and 2 Puffs in the evening. [facility] benzonatate 100 mg capsule 2022-05 00:00: 00 04-26 05:59 :00 No [id number] 100mg Take 1 capsule by mouth every 8 (eight) hours as needed for Cough for up to 5 days. [facility] iron dextran (INFED) 1,000 mg in NaCl 0.9% (NS) 500 mL IV infusion 2022-05 19:30: 00 04-20 00:31 :00 No 1000mg 1,000 mg, IV Infusion, ONCE, 1 dose, On Tue04/19/23 at 1330, Administer over 1 Hours, 500 mL [facility] iron dextran (INFED) 25 mg in NaCl 0.9% (NS) 100 mL IV piggyback 2022-05 19:30: 00 04-19 22:19 :00 No 25mg 25 mg, IV Piggyback, ONCE, 1 dose, On Tue04/19/23 at 1330, Administer over 15 Minutes, 100 mL [facility] benzonatate (TESSALON PERLES) capsule 100 mg 2022-05 15:15: 00 Yes 100mg 100 mg, Oral, Q8H, First dose on Tue04/19/23 at 0915, Until Discontinu ed, Routine [facility] furosemide (LASIX) injection 20 mg 2022-05 16:00: 00 04-17 16:02 :00 No 20mg 20 mg, Slow IV Push, ONCE, 1 dose, On Tue04/17/23 at 1000, Routine [facility] budesonide- formoteroL (SYMBICORT) 80-4.5 mcg/actuati on inhaler 2 Puff 2022-05 15:45: 00 Yes 2{puff} 2 Puff, Inhalation , BID, First dose on Tue04/17/23 at 0945, Until Discontinu ed, Routine [facility] sodium chloride 7% (HYPER-MAYRA) nebulizer solution 4 mL 2022-05 15:45: 00 Yes 4mL 4 mL, Inhalation , BID, First dose on Tue04/17/23 at 0945, Until Discontinu ed, Routine [facility] lidocaine 2% viscous (LIDOCAINE VISCOUS) 2 % solution 15 mL 2022-05 15:30: 00 04-17 20:37 :00 No 15mL 15 mL, Oral, ONCE, 1 dose, On Tue04/17/23 at 0930, Routine [facility] hydroCHLORO thiazide (ESIDRIX) capsule 12.5 mg 2022-05 15:00: 00 Yes 12.5mg 12.5 mg, Oral, DAILY, First dose on 04/17/23 at 0900, Until Discontinu ed, Routine [facility] polyethylen e glycol 3350 powder 17 g 2022-05 15:00: 00 Yes 17g 17 g, Oral, DAILY, First dose (after last modificati on) on 04/17/23 at 0900, Until Discontinu ed, Routine [facility] sennosides (SENOKOT) tablet 8.6 mg 2022-05 15:00: 00 Yes 8.6mg 8.6 mg, Oral, DAILY, First dose (after last modificati on) on 04/17/23 at 0900, Until Discontinu ed, Routine [facility] pantoprazol e (PROTONIX) EC tablet 40 mg 2022-05 15:00: 00 Yes 40mg 40 mg, Oral, DAILY, First dose on 04/17/23 at 0900, Until Discontinu ed, Routine [facility] losartan (COZAAR) tablet 50 mg 2022-05 15:00: 00 Yes 50mg 50 mg, Oral, DAILY, First dose (after last modificati on) on 04/17/23 at 0900, Until Discontinu ed, Routine [facility] amLODIPine (NORVASC) tablet 10 mg 2022-05 15:00: 00 Yes 10mg 10 mg, Oral, DAILY, First dose (after last modificati on) on 04/17/23 at 0900, Until Discontinu ed, Routine [facility] predniSONE (DELTASONE) tablet 40 mg 2022-05 15:00: 00 04-20 14:33 :00 No 40mg 40 mg, Oral, DAILY, 4 doses, First dose on 04/17/23 at 0900, Last dose on Tue04/20/23 at 0900, Routine [facility] guaiFENesin 100 mg/5 mL solution 200 mg 2022-05 12:45: 00 04-19 15:10 :35 No 200mg 200 mg, Oral, Q4H, First dose on 04/17/23 at 0645, Until Discontinu ed, Routine [facility] Sliding Scale Insulin - Lispro (HumaLOG) 2022-05 23:00: 00 Yes Subcutaneo us, TID MEALS+HS, First dose (after last modificati on) on 04/16/23 at 1700, Until Discontinu ed, Routine [facility] ipratropium (ATROVENT) 0.02 % nebulizer solution 0.5 mg 2022-05 22:00: 00 Yes .5mg 0.5 mg, Inhalation , Q4H, First dose on 04/16/23 at 1600, Until Discontinu ed, Routine [facility] levalbutero l (XOPENEX) nebulizer solution 1.25 mg 2022-05 22:00: 00 Yes 1.25mg 1.25 mg, Inhalation , Q4H, First dose on 04/16/23 at 1600, Until Discontinu ed, Routine [facility] enoxaparin (LOVENOX) injection 40 mg 2022-05 21:15: 00 Yes 40mg 40 mg, Subcutaneo us, Q24H, First dose on 04/16/23 at 1515, Until Discontinu ed, Routine [facility] furosemide (LASIX) injection 20 mg 2022-05 21:00: 00 04-16 21:12 :00 No 20mg 20 mg, Slow IV Push, ONCE, 1 dose, On 04/16/23 at 1500, Routine [facility] Lidocaine (LIDOCARE) 4 % patch 1 Patch 2022-05 20:45: 00 04-17 09:12 :00 No 1{patch } 1 Patch, Topical, Administer over 12 Hours, ONCE, 1 dose, On 04/16/23 at 1445, Routine [facility] ipratropium -albuteroL (DUONEB) 0.5 mg-3 mg(2.5 mg base)/3 mL nebulizer solution 3 mL 2022-05 20:15: 00 Yes 3mL 3 mL, Inhalation , QIDPRN, Starting on 04/16/23 at 1415, Until Discontinu ed, Routine, Wheezing [facility] phenoL (SORE THROAT (PHENOL)) 1.4 % spray bottle 1 Martin 2022-05 13:47: 02 Yes 1{spray } 1 Martin, Oral, PRN, Starting on 04/16/23 at 0747, Until Discontinu ed, Routine, Sore throat [facility] Lidocaine (LIDOCARE) 4 % patch 1 Patch 2022-05 10:00: 00 04-16 22:03 :00 No 1{patch } 1 Patch, Topical, Administer over 12 Hours, ONCE, 1 dose, On 04/16/23 at 0400, Routine [facility] acetaminoph en (TYLENOL) tablet 650 mg 2022-05 07:40: 11 Yes 650mg 650 mg, Oral, Q6HPRN, Starting on 04/16/23 at 0140, Until Discontinu ed, Routine, Pain (scale 1-3), Temp > 38 C [facility] amLODIPine (NORVASC) tablet 5 mg 2022-05 06:00: 00 04-16 16:38 :32 No 5mg 5 mg, Oral, DAILY, First dose on 04/16/23 at 0000, Until Discontinu ed, Routine [facility] hydralAZINE (APRESOLINE ) injection 10 mg 2022-05 03:45: 00 04-16 04:32 :00 No 10mg 10 mg, Slow IV Push, ONCE, 1 dose, On Tue04/15/23 at 2145, STAT [facility] D5W IV infusion 1,000 mL 2022-05 02:45: 00 04-16 02:42 :02 No 1000mL at 150 mL/hr, IV Infusion, ONCE, 1 dose, On Tue04/15/23 at 2045, Routine [facility] lactated ringers IV infusion 1,000 mL 2022-05 02:30: 00 04-16 02:43 :00 No 1000mL at 200 mL/hr, 1,000 mL, IV Infusion, ONCE, 1 dose, On Tue04/15/23 at 2030, Routine [facility] lactated ringers IV infusion 1,000 mL 2022-05 01:30: 00 04-16 00:55 :00 No 1000mL at 50 mL/hr, 1,000 mL, IV Infusion, ONCE, 1 dose, On Tue04/15/23 at 1930, Routine [facility] losartan (COZAAR) tablet 25 mg 2022-05 01:00: 00 04-16 16:38 :32 No 25mg 25 mg, Oral, DAILY, First dose on Tue04/15/23 at 2000, Until Discontinu ed, Routine [facility] acetaminoph en ADULT (OFIRMEV) injection 1,000 mg 2022-05 04:08: 24 04-16 04:07 :24 No 1000mg 1,000 mg, IV Infusion, at 400 mL/hr Administer over 15 Minutes, Q8HPRN, Starting on Tue04/14/23 at 2208, Until Tue04/15/23 at 2207, Routine, Pain (scale 1-3), Fever>38c< br>Indicat ion: Strict NPO and unable to tolerate oral medication s [facility] dexamethaso ne sod phos PF injection 6 mg 2022-05 00:00: 00 04-15 11:00 :00 No 6mg 6 mg, Intravenou s, Q6H, 3 doses, First dose on Tue04/14/23 at 1800, Last dose on Tue04/15/23 at 0600, 1 mL [facility] dexMEDEtomi dine 200 mcg in 0.9 [...] at maximum allowed dose, contact prescriber .
[facility] furosemide (LASIX) injection 20 mg 2022-05 22:00: 00 04-14 21:17 :00 No 20mg 20 mg, Slow IV Push, ONCE, 1 dose, On Tue04/14/23 at 1600, ZEHRA [facility] sennosides (SENOKOT) tablet 8.6 mg 2022-05 15:00: 00 04-16 20:06 :20 No 8.6mg 8.6 mg, Enteral, DAILY, First dose on Tue04/14/23 at 0900, Until Discontinu ed, Routine [facility] polyethylen e glycol 3350 powder 17 g 2022-05 15:00: 00 04-16 20:06 :20 No 17g 17 g, Enteral, DAILY, First dose on Tue04/14/23 at 0900, Until Discontinu ed, Routine [facility] potassium chloride 40 mEq in 100 mL IVPB 2022-05 12:00: 00 04-14 19:56 :00 No 40meq 40 mEq, Intravenou s, Q2H, 2 doses, First dose on Tue04/14/23 at 0600, Last dose on Tue04/14/23 at 0800, 100 mL [facility] acetaminoph en ADULT (OFIRMEV) injection 1,000 mg 2022-05 04:56: 37 04-15 04:09 :21 No 1000mg 1,000 mg, IV Infusion, at 400 mL/hr Administer over 15 Minutes, Q8HPRN, Starting on Tue04/13/23 at 2256, Until Tue04/14/23 at 2209, Routine, Pain (scale 1-3), fever
I ndication: Strict NPO and unable to tolerate oral medication s [facility] acetaminoph en ADULT (OFIRMEV) injection 1,000 mg 2022-05 20:30: 00 04-13 20:02 :00 No 1000mg 1,000 mg, IV Infusion, at 400 mL/hr Administer over 15 Minutes, ONCE, 1 dose, On Tue04/13/23 at 1430, Routine
Indicatio n: Strict NPO and unable to tolerate oral medication s [facility] dexMEDEtomi dine 200 mcg in 0.9 [...] at maximum allowed dose, contact prescriber .
[facility] midazolam (VERSED) STD 50mg in NaCl [...] at maximum allowed dose, contact prescriber .
[facility] propofoL IV infusion 2022-05 16:43: 55 [...] vials should be discarded after 12 hours.
[facility] acetaminoph en ADULT (OFIRMEV) injection 1,000 mg 2022-05 05:00: 00 04-13 04:31 :00 No 1000mg 1,000 mg, IV Infusion, at 400 mL/hr Administer over 15 Minutes, ONCE, 1 dose, On Tue04/12/23 at 2300, Routine
Indicatio n: Strict NPO and unable to tolerate oral medication s [facility] propofoL IV infusion 2022-05 21:03: 51 04-13 [...] vials should be discarded after 12 hours.
[facility] furosemide (LASIX) injection 40 mg 2022-05 20:15: 00 04-12 20:54 :00 No 40mg 40 mg, Slow IV Push, ONCE, 1 dose, On Tue04/12/23 at 1430, Routine [facility] azithromyci n (ZITHROMAX) 500 mg in NaCl [...] y
Durat ion of therapy: 72 hours [facility] albuterol (PROVENTIL) 2.5 mg /3 mL (0.083 %) nebulizer solution 5 mg 2022-05 17:00: 00 04-15 06:30 :39 No 5mg 5 mg, Inhalation , Q3H, First dose (after last modificati on) on Tue04/12/23 at 1100, Until Discontinu ed, Routine [facility] acetaminoph en ADULT (OFIRMEV) injection 1,000 mg 2022-05 16:45: 00 04-12 16:23 :00 No 1000mg 1,000 mg, IV Infusion, at 400 mL/hr Administer over 15 Minutes, ONCE, 1 dose, On Tue04/12/23 at 1045, Routine
Indicatio n: Strict NPO and unable to tolerate oral medication s [facility] albuterol (PROVENTIL) 2.5 mg /3 mL (0.083 %) nebulizer solution 5 mg 2022-05 03:00: 00 04-12 15:49 :34 No 5mg 5 mg, Inhalation , Q1H, First dose (after last modificati on) on Tue04/11/23 at 2100, Until Discontinu ed, Routine [facility] phenylephri ne (VAZCULEP) 50 mg in NaCl [...] at maximum allowed dose, contact prescriber .
[facility] insulin lispro (human) (HumaLOG U-100) injection 2 Units 2022-05 00:43: 11 Yes 2U 2 Units, Subcutaneo us, PRN - SEE INSTRUCTIO NS, 1 dose, Starting on Tue04/11/23 at 1843, Until Discontinu ed, Routine, For blood glucose > 300 mg/dL [facility] dextrose 10% (D10W) bolus infusion 125 [...] carb snack - Sprite or cranberry juice.
[facility] pantoprazol e (PROTONIX) injection 40 mg 2022-05 00:00: 00 04-16 17:35 :05 No 40mg 40 mg, Slow IV Push, DAILY, First dose on Tue04/11/23 at 1800, Until Discontinu ed [facility] furosemide (LASIX) injection 40 mg 2022-05 23:30: 00 04-11 23:00 :00 No 40mg 40 mg, Slow IV Push, ONCE, 1 dose, On Tue04/11/23 at 1730, Routine [facility] insulin regular human (HUMULIN R) injection 10 Units 2022-05 23:00: 00 04-11 23:05 :00 No 10U 10 Units, IV Push, ONCE, 1 dose, On Tue04/11/23 at 1700, ZEHRA
In dication for insulin: Hyperkalem ia- Please use the Insulin Protocol for Hyperkalem ia order set [facility] dextrose 50 % in water (D50W) injection 50 mL 2022-05 23:00: 00 04-11 23:02 :00 No 50mL 50 mL, Slow IV Push, ONCE, 1 dose, On Tue04/11/23 at 1700, ZEHRA [facility] glucagon (GLUCAGEN DIAGNOSTIC KIT) injection 1 mg 2022-05 22:42: 20 Yes 1mg 1 mg, Intramuscu lar, PRN, Starting on Tue04/11/23 at 1642, Until Discontinu ed, ZEHRA, Blood Glucose < or = 70 mg/dL and patient is NPO, unable to swallow or has mental changes. [facility] cisatracuri um (NIMBEX) 200 mg in NaCl 0.9% (NS) 100 mL infusion 2022-05 17:42: 55 04-14 15:05 :39 No 1ug/kg/ min 1-10 mcg/kg/min ?102.1 kg (3.063-30. 63 mL/hr, rounded to 3.06-30.63 mL/hr), IV Infusion, TITRATE, [place] 2/4, Starting on Tue04/11/23 at 1142
In itiate infusion at 1 mcg/kg/min and titrate by 0.25 mcg/kg/min every 5 minutes to 10 minutes as needed within the specified range to maintain desired depth of blockade.& nbsp;&nbsp ;Maximum dose = 10 mcg/kg/min . If desired depth of blockade is not maintained , contact prescriber .
[facility] phenylephri ne 50 mg in NS [...] at maximum allowed dose, contact prescriber .
[facility] midazolam (VERSED) STD 50mg in NaCl [...] at maximum allowed dose, contact prescriber .
[facility] propofoL IV infusion 2022-05 11:21: 19 [...] vials should be discarded after 12 hours.
[facility] phenylephri ne (VAZCULEP) 50 mg in [...] at maximum allowed dose, contact prescriber .
[facility] dextrose 50 % in water (D50W) injection 25 mL 2022-05 10:43: 35 Yes 25mL 25 mL, Slow IV Push, PRN, Starting on Tue04/11/23 at 0443, Until Discontinu ed, ZEHRA, Blood Glucose < or = 70 mg/dL and patient is NPO, unable to swallow or has mental status changes. [facility] lactated ringers IV infusion 500 mL 2022-05 06:15: 00 04-11 07:43 :58 No 500mL at 999 mL/hr, 500 mL, Intravenou s, ONCE, 1 dose, On Tue04/11/23 at 0015, Routine [facility] albuterol (PROVENTIL) 2.5 mg /3 mL (0.083 %) nebulizer solution 5 mg 2022-05 02:59: 15 04-12 02:03 :01 No 5mg 5 mg, Inhalation , Q1HPRN, Starting on Tue04/10/23 at 2058, Until 04/11/23 at 2002, Routine, Shortness of Breath, Wheezing [facility] magnesium sulfate in water 2 gram/50 mL (4 %) infusion 2 g 2022-05 02:45: 00 04-11 03:11 :00 No 2g 2 g, IV Piggyback, Administer over 60 Minutes, ONCE, 1 dose, On Tue04/10/23 at 204, Routine [facility] cisatracuri um (NIMBEX) injection 10 mg 2022-05 02:30: 00 04-11 01:46 :00 No 10mg 10 mg, Intravenou s, ONCE, 1 dose, On Tue04/10/23 at 2030, Routine [facility] cisatracuri um (NIMBEX) 200 mg in NaCl 0.9% (NS) 100 mL infusion 2022-05 02:21: 39 04-11 16:52 :04 No 1ug/kg/ min 1-10 mcg/kg/min ?102.1 kg (3.063-30. 63 mL/hr, rounded to 3.06-30.63 mL/hr), IV Infusion, TITRATE, Train [place] Four 2/4, Starting on Tue04/10/23 at 2020
In itiate infusion at 1 mcg/kg/min and titrate by 0.5 mcg/kg/min every 5 minutes to 10 minutes as needed within the specified range to maintain desired depth of blockade.& nbsp;&nbsp ;Maximum dose = 10 mcg/kg/min . If desired depth of blockade is not maintained , contact prescriber .
[facility] montelukast (SINGULAIR) tablet 10 mg 2022-05 02:00: 00 Yes 10mg 10 mg, Oral, DAILY, First dose on Tue04/10/23 at 2000, Until Discontinu ed, Routine [facility] methylpredn isolone sod succ (SOLU-MEDRO L) injection 40 mg 2022-05 02:00: 00 04-12 03:59 :00 No 40mg 40 mg, Intravenou s, Q8H, 4 doses, First dose (after last modificati on) on Tue04/10/23 at 2000, Last dose on Tue04/11/23 at 1400, Routine [facility] phenylephri ne (VAZCULEP) 10 mg in NaCl [...] at maximum allowed dose, contact prescriber .
[facility] furosemide (LASIX) injection 40 mg 2022-05 22:00: 00 04-10 21:33 :00 No 40mg 40 mg, Slow IV Push, ONCE, 1 dose, On Tue04/10/23 at 1600, Routine [facility] albuterol (PROVENTIL) 2.5 mg /3 mL (0.083 %) nebulizer solution 5 mg 2022-05 20:48: 54 04-11 01:54 :23 No 5mg 5 mg, Inhalation , Q1HPRN, Starting on Tue04/10/23 at 1448, Until Tue04/10/23 at 1954, Routine, Shortness of Breath, Wheezing, hyperkalem ia [facility] midazolam (VERSED) STD 50mg in NaCl 0.9% (NS) 50 mL infusion RTU 2022-05 18:32: 38 04-11 11:22 :03 No 1mg/h 1-10 mg/hr (1-10 mL/hr), IV Infusion, TITRATE, Sedation-R ASS score (-1 to -2), Starting on [place] 04/10/23 at 1232
In itiate infusion at 1 mg/hr and titrate by 1 mg/hr every 3 minutes to 10 minutes to goal sedation score. Maximum dose = 10 mg/hr.&nbs p; If goal not maintained at maximum allowed dose, contact prescriber .
[facility] methylpredn isolone sod succ (SOLU-MEDRO L) injection 40 mg 2022-05 16:15: 00 04-11 01:54 :23 No 40mg 40 mg, Intravenou s, DAILY, 5 doses, First dose on [place] 04/10/23 at 1015, Last dose on Laurie 04/14/23 at 0900, Routine [facility] NaCl 0.9% (NS) bolus infusion 1,000 mL 2022-05 16:00: 00 04-10 16:07 :00 No 1000mL at 999 mL/hr, 1,000 mL, IV Piggyback, ONCE, 1 dose, On [place] 04/10/23 at 1000, STAT [facility] fentaNYL PF (SUBLIMAZE) STD 2,500 mcg in NaCl 0.9% (NS) 250 mL infusion RTU 2022-05 15:57: 32 04-16 17:34 :23 No 25ug/h 25-200 mcg/hr (2.5-20 mL/hr), IV Infusion, TITRATE, CPOT/Pain Scale Goals Determined by Provider, Starting on [place] 04/10/23 at 0957
In itiate infusion at 25 mcg/hr. Titrate by 25 mcg/hr every 1 minute to 15 minutes to identified goal pain and/or sedation scores. Maximum dose = 200 mcg/hr. If goal not maintained at maximum allowed dose, contact prescriber .
[facility] propofoL IV infusion 2022-05 15:56: 51 [...] be discarded after 12 hours.
[facility] sodium chloride 7% (HYPER-MAYRA) nebulizer solution 4 mL 2022-05 15:00: 00 04-11 03:37 :05 No 4mL 4 mL, Inhalation , DAILY, First dose on Tue04/10/23 at 0900, Until Discontinu ed, Routine [facility] Sliding Scale Insulin - Lispro (HumaLOG) 2022-05 14:00: 00 04-16 20:06 :28 No Subcutaneo us, Q4H, First dose (after last modificati on) on Tue04/10/23 at 0800, Until Discontinu ed, Routine [facility] ipratropium -albuteroL (DUONEB) 0.5 mg-3 mg(2.5 mg base)/3 mL nebulizer solution 3 mL 2022-05 10:00: 00 04-16 20:04 :53 No 3mL 3 mL, Inhalation , Q4H, First dose on Tue04/10/23 at 0400, Until Discontinu ed, Routine [facility] propofoL IV infusion 2022-05 09:22: 59 04-10 [...] vials should be discarded after 12 hours.
[facility] azithromyci n (ZITHROMAX) tablet 500 mg 01-19 00:45: 00 01-19 01:14 :00 No 500mg 500 mg, Oral, ONCE, 1 dose, On Tue01/18/23 at 1945, ZEHRA
Re ason for Anti-Infec tive: Documented Infection< br>Documen ashly Infection Site: Respirator y
Durat ion of Therapy: 7 days [facility] furosemide (LASIX) tablet 20 mg 01-19 00:45: 00 01-19 01:14 :00 No 20mg 20 mg, Oral, ONCE, 1 dose, On Tue01/18/23 at 1945, ZEHRA [facility] predniSONE 20 mg tablet 01-19 00:00: 00 01-27 04:59 :00 No [id number] 40mg Take 2 tablets by mouth in the morning for 7 days. [facility] ipratropium -albuteroL (DUONEB) 0.5 mg-3 mg(2.5 mg base)/3 mL nebulizer solution 3 mL 01-18 19:45: 00 01-18 20:30 :00 No 3mL 3 mL, Inhalation , ONCE, 1 dose, On Tue01/18/23 at 1445, ZEHRA [facility] predniSONE (DELTASONE) tablet 40 mg 01-18 19:00: 00 01-18 20:26 :00 No 40mg 40 mg, Oral, ONCE, 1 dose, On Tue01/18/23 at 1400, ZEHRA [facility] albuterol 90 mcg/actuati on inhaler 01-18 00:00: 00 Yes [id number] 2{puff} Inhale 2 Puffs every 4 (four) hours as needed for Wheezing or Shortness of Breath. [facility] benzonatate 200 mg capsule 01-18 00:00: 00 Yes [id number] 200mg Take 1 capsule by mouth 3 (three) times daily as needed for Cough. [facility] azithromyci n 250 mg tablet 01-18 00:00: 00 Yes [id number] 250mg Take 1 tablet by mouth SEE-INSTRU CTIONS. Take 500 mg day 1, then 250 mg days 2 to 5. [facility] furosemide 20 mg tablet 01-18 00:00: 00 Yes [id number] 20mg Take 1 tablet by mouth every morning. [facility] ketorolac (TORADOL) injection 30 mg 01-11 19:30: 00 01-11 18:34 :00 No 30mg 30 mg, Slow IV Push, ONCE, 1 dose, On Tue01/11/22 at 1430, ZEHRA [facility] morpHINE (4 mg/mL) injection 4 mg 01-11 18:30: 00 01-11 18:34 :00 No 4mg 4 mg, Slow IV Push, ONCE, 1 dose, On Tue01/11/22 at 1330, STAT [facility] ondansetron (ZOFRAN (PF)) injection 4 mg 01-11 17:15: 00 01-11 16:26 :00 No 4mg 4 mg, Slow IV Push, ONCE, 1 dose, On Tue01/11/22 at 1215, ZEHRA [facility] morpHINE (4 mg/mL) injection 4 mg 01-11 16:15: 00 01-11 16:27 :00 No 4mg 4 mg, Slow IV Push, ONCE, 1 dose, On Tue01/11/22 at 1115, STAT [facility] ciprofloxac in HCl 500 mg tablet 01-11 00:00: 00 04-20 00:00 :00 No [id number] 500mg Take 1 tablet by mouth in the morning and 1 tablet in the evening. [facility] HYDROcodone -acetaminop hen (NORCO) 7.5-325 mg per tablet 01-11 00:00: 00 01-19 04:59 :00 No [id number] 1{tbl} Take 1 tablet by mouth every 8 (eight) hours as needed for Pain for up to 7 days. Indication s: acute pain [facility] predniSONE 20 mg tablet 01-11 00:00: 00 01-17 04:59 :00 No [id number] 20mg Take 1 tablet by mouth in the morning for 5 days. [facility] ketorolac (TORADOL) injection 30 mg 08-19 03:15: 00 08-19 02:57 :00 No 30mg 30 mg, Intramuscu lar, ONCE, 1 dose, On Tue08/18/21 at 2215, ZEHRA [facility] predniSONE 20 mg tablet 08-18 00:00: 00 04-20 00:00 :00 No [id number] TAKE ONE TABLET BY MOUTH DAILY [facility] gabapentin 300 mg capsule 08-18 00:00: 00 04-20 00:00 :00 No [id number] 300mg Take 1 capsule by mouth 3 (three) times daily. [facility] cyclobenzap rine 10 mg tablet 06-23 00:00: 00 Yes [id number] 10mg Take 1 tablet by mouth 3 (three) times daily as needed for Muscle Spasms. [facility] traMADoL 50 mg tablet 06-23 00:00: 00 04-20 00:00 :00 No [id number] 50mg Take 1 tablet by mouth every 6 (six) hours as needed for Pain (scale 7-10). Indication s: acute pain [facility] naproxen (NAPROSYN) 500 mg tablet 08 00:00: 00 04-20 00:00 :00 No [id number] 500mg Take 1 tablet by mouth 2 (two) times daily with meals. [facility] Vital Signs Vital Name Observation Time Observation Value Jus utrcios Systolic blood pressure 2023-04-20 21:58:00 126 mm[Hg] [facility] Diastolic blood pressure 2023-04-20 21:58:00 71 mm[Hg] [facility] Heart rate 2023-04-20 21:58:00 87 /min Unive [facility] Body temperature 2023-04-20 21:58:00 36.22 Norma [facility] Respiratory rate 2023-04-20 21:58:00 18 /min [facility] Oxygen saturation in Arterial blood by Pulse oximetry 2023-04-20 21:58:00 91 /min [facility] Body height 2023-04-16 20:39:00 167.6 cm [facility] Body weight 2023-04-16 20:39:00 118 kg per bed [facility] BMI 2023-04-16 20:39:00 41.99 kg/m2 [facility] Systolic blood pressure 2023-01-19 01:00:00 176 mm[Hg] [facility] Diastolic blood pressure 2023-01-19 01:00:00 96 mm[Hg] [facility] Heart rate 2023-01-19 01:00:00 76 /min [facility] Respiratory rate 2023-01-19 01:00:00 18 /min [facility] Oxygen saturation in Arterial blood by Pulse oximetry 2023-01-19 01:00:00 95 /min [facility] Body temperature 2023-01-18 18:33:00 37.22 Norma [facility] Body height 2023-01-18 18:33:00 167.6 cm [facility] Body weight 2023-01-18 18:33:00 110.224 kg [facility] BMI 2023-01-18 18:33:00 39.22 kg/m2 [facility] Systolic blood pressure 2022-01-11 19:34:00 116 mm[Hg] [facility] Diastolic blood pressure 2022-01-11 19:34:00 77 mm[Hg] [facility] Heart rate 2022-01-11 19:34:00 78 /min [facility] Respiratory rate 2022-01-11 19:34:00 20 /min [facility] Oxygen saturation in Arterial blood by Pulse oximetry 2022-01-11 19:34:00 99 /min [facility] Body temperature 2022-01-11 15:35:00 36.67 Norma [facility] Body weight 2022-01-11 15:35:00 104.327 kg [facility] BMI 2022-01-11 15:35:00 37.12 kg/m2 [facility] Systolic blood pressure 2021-08-19 04:28:52 143 mm[Hg] [facility] Diastolic blood pressure 2021-08-19 04:28:52 83 mm[Hg] [facility] Heart rate 2021-08-19 04:28:52 95 /min [facility] Respiratory rate 2021-08-19 04:28:52 20 /min [facility] Oxygen saturation in Arterial blood by Pulse oximetry 2021-08-19 04:28:52 97 /min [facility] Body temperature 2021-08-18 23:50:00 37.83 Norma [facility] Body height 2021-08-18 23:50:00 167.6 cm [facility] Body weight 2021-08-18 23:50:00 104.327 kg [facility] BMI 2021-08-18 23:50:00 37.12 kg/m2 [facility] Procedures Procedure Date / Time Performed Performing Clinician Source POCT GLUCOSE (AUTOMATED) 2023-04-20 22:00:00 Kristina Reynolds [facility] POCT GLUCOSE (AUTOMATED) 2023-04-20 17:28:00 Kristina Reynolds [facility] POCT GLUCOSE (AUTOMATED) 2023-04-20 14:36:00 Kristina Reynoldsshahida [facility] CBC WITHOUT DIFF 2023-04-20 10:36:00 Ling Quinn [facility] POCT GLUCOSE (AUTOMATED) 2023-04-20 03:10:00 Kristina Reynoldsshahida [facility] POCT GLUCOSE (AUTOMATED) 2023-04-20 00:46:00 Kristina Reynoldsshahida [facility] POCT GLUCOSE (AUTOMATED) 2023-04-19 17:47:00 Kristina Reynoldsshahida [facility] MAGNESIUM 2023-04-19 10:10:00 Ling Quinn [facility] BASIC METABOLIC PANEL (NA, K, CL, CO2, GLUCOSE, BUN, CREATININE, CA) 2023-04-19 10:10:00 Ling Quinn [facility] CBC WITH DIFF 2023-04-19 10:10:00 Ling Quinn [facility] POCT GLUCOSE (AUTOMATED) 2023-04-19 02:41:00 Kristina Reynoldsshahida [facility] POCT GLUCOSE (AUTOMATED) 2023-04-18 23:45:00 Kristina Reynoldsshahida [facility] MAGNESIUM 2023-04-18 16:45:00 Scott Ingram [facility] BASIC METABOLIC PANEL (NA, K, CL, CO2, GLUCOSE, BUN, CREATININE, CA) 2023-04-18 16:45:00 Francisco J Ingram [facility] CBC WITHOUT DIFF 2023-04-18 16:45:00 Gregor Ingram [facility] POCT GLUCOSE (AUTOMATED) 2023-04-18 15:45:00 Kristina Reynoldsshahida [facility] POCT GLUCOSE (AUTOMATED) 2023-04-18 03:28:00 Kristina Reynoldsshahida [facility] POCT GLUCOSE (AUTOMATED) 2023-04-17 23:15:00 Kristina Reynoldsshahida [facility] POCT GLUCOSE (AUTOMATED) 2023-04-17 18:30:[address] [facility] 2023-04-17 15:34:00 Kristina Reynolds [facility] MAGNESIUM 2023-04-17 12:14:00 Scott Ingram [facility] BASIC METABOLIC PANEL (NA, K, CL, CO2, GLUCOSE, BUN, CREATININE, CA) 2023-04-17 12:14:00 Francisco J Ingram [facility] CBC WITHOUT DIFF 2023-04-17 12:14:00 Gregor Ingram [facility] HB ABO GROUPING 2023-04-17 12:14:00 Lolis Correa [facility] N-TERMINAL PRO-BNP 2023-04-17 12:14:00 Francisco J Ingram [facility] POCT GLUCOSE (AUTOMATED) 2023-04-17 01:45:00 Kristina Reynolds [facility] POCT GLUCOSE (AUTOMATED) 2023-04-16 22:44:00 Kristina Reynoldsshahida [facility] POCT GLUCOSE (AUTOMATED) 2023-04-16 18:04:00 Lainey Jacob [facility] POCT GLUCOSE (AUTOMATED) 2023-04-16 14:49:00 Lainey Jacob [facility] POCT GLUCOSE (AUTOMATED) 2023-04-16 09:59:00 Lainey Jacob [facility] MAGNESIUM 2023-04-16 09:55:00 Greg Neves [facility] BASIC METABOLIC PANEL (NA, K, CL, CO2, GLUCOSE, BUN, CREATININE, CA) 2023-04-16 09:55:00 Juana Bower [facility] CBC WITH DIFF 2023-04-16 09:55:00 Juana Bower [facility] POCT GLUCOSE (AUTOMATED) 2023-04-16 07:03:00 Lainey Jacob [facility] BASIC METABOLIC PANEL (NA, K, CL, CO2, GLUCOSE, BUN, CREATININE, CA) 2023-04-16 02:06:00 Juana Bower [facility] POCT GLUCOSE (AUTOMATED) 2023-04-16 01:49:00 Lainey Jacob [facility] MAGNESIUM 2023-04-15 23:31:00 Greg Neves [facility] BASIC METABOLIC PANEL (NA, K, CL, CO2, GLUCOSE, BUN, CREATININE, CA) 2023-04-15 23:31:00 Juana Bower [facility] XR CHEST 1 VW 2023-04-15 20:50:00 Sharif Monae [facility] XR KUB 2023-04-15 20:50:00 Juana Bower [facility] XR CHEST 1 VW 2023-04-15 17:00:00 Sathish Juana [facility] POCT GLUCOSE (AUTOMATED) 2023-04-15 14:13:00 Lainey Jacob [facility] MAGNESIUM 2023-04-15 09:38:00 Greg Neves [facility] BASIC METABOLIC PANEL (NA, K, CL, CO2, GLUCOSE, BUN, CREATININE, CA) 2023-04-15 09:38:00 Sathish Juana [facility] CBC WITH DIFF 2023-04-15 09:38:00 Juana Bower [facility] POCT GLUCOSE (AUTOMATED) 2023-04-15 09:36:00 Lainey Jacob [facility] POCT GLUCOSE (AUTOMATED) 2023-04-15 05:50:00 Lainey Jacob [facility] AC PANEL 21 + LACTIC ACID 2023-04-15 02:08:00 Spencer Medina [facility] POCT GLUCOSE (AUTOMATED) 2023-04-15 02:07:00 Lainey Jacob [facility] PHOSPHORUS 2023-04-14 23:54:00 Juana Bower [facility] MAGNESIUM 2023-04-14 21:02:00 Greg Neves [facility] BASIC METABOLIC PANEL (NA, K, CL, CO2, GLUCOSE, BUN, CREATININE, CA) 2023-04-14 21:02:00 [facility] EKG-12 LEAD 2023-04-14 18:09:28 Jair Reynolds [facility] POCT GLUCOSE (AUTOMATED) 2023-04-14 18:05:00 Lainey Jacob [facility] AC PANEL 21 + LACTIC ACID 2023-04-14 14:54:00 [facility] SPUTUM CULTURE 2023-04-14 14:45:00 Bear Riggins [facility] PHOSPHORUS 2023-04-14 09:42:[address] [facility] LIPASE 2023-04-14 09:42:[address] [facility] MAGNESIUM 2023-04-14 09:42:00 Greg Neves [facility] BASIC METABOLIC PANEL (NA, K, CL, CO2, GLUCOSE, BUN, CREATININE, CA) 2023-04-14 09:42:00 [facility] CBC WITH DIFF 2023-04-14 09:42:00 Juana Bower [facility] POCT GLUCOSE (AUTOMATED) 2023-04-14 09:41:00 Lainey Jacob [facility] POCT GLUCOSE (AUTOMATED) 2023-04-14 06:11:00 Lainey Jacob [facility] AC PANEL 21 + LACTIC ACID 2023-04-14 02:35:00 Spencer Medina [facility] XR CHEST 1 VW 2023-04-14 02:34:00 Bear Riggins [facility] XR KUB 2023-04-14 02:34:00 Bear Riggins [facility] POCT GLUCOSE (AUTOMATED) 2023-04-14 02:34:00 Lainey Jacob [facility] POCT GLUCOSE (AUTOMATED) 2023-04-14 02:33:00 Lainey Jacob [facility] MAGNESIUM 2023-04-13 22:33:00 Greg Neves [facility] FERRITIN SERUM 2023-04-13 22:33:00 BensonSheryl manzanares [facility] LIPID PANEL ([id number])(TOTAL CHOLESTEROL, TRIGLYCERIDES, HDL) 2023-04-13 22:33:00 [facility] LOW-DENSITY LIPOPROTEIN, DIRECT 2023-04-13 22:33:00 Bear Riggins [facility] POCT GLUCOSE (AUTOMATED) 2023-04-13 22:15:00 Lainey Jacob [facility] BLOOD CULTURE SCREEN 2023-04-13 20:24:00 Elvie Bower [facility] BLOOD CULTURE SCREEN 2023-04-13 20:23:00 Elvie Bower [facility] POCT GLUCOSE (AUTOMATED) 2023-04-13 17:29:00 Lainey Jacob [facility] AC PANEL 21 + LACTIC ACID 2023-04-13 16:32:00 Spencer Medina [facility] POCT GLUCOSE (AUTOMATED) 2023-04-13 13:40:00 Lainey Jacob [facility] PHOSPHORUS 2023-04-13 09:50:00 Juana Bower [facility] MAGNESIUM 2023-04-13 09:50:00 Greg Neves [facility] BASIC METABOLIC PANEL (NA, K, CL, CO2, GLUCOSE, BUN, CREATININE, CA) 2023-04-13 09:50:00 Sathish Juana [facility] CBC WITH DIFF 2023-04-13 09:50:00 Juana Bower [facility] AC PANEL 21 + LACTIC ACID 2023-04-13 09:50:00 Spencer Medina [facility] POCT GLUCOSE (AUTOMATED) 2023-04-13 09:48:00 Lainey Jacob [facility] BASIC METABOLIC PANEL (NA, K, CL, CO2, GLUCOSE, BUN, CREATININE, CA) 2023-04-13 05:50:00 Greg Neves [facility] POCT GLUCOSE (AUTOMATED) 2023-04-13 05:49:00 Lainey Jacob [facility] AC PANEL 21 + LACTIC ACID 2023-04-13 04:21:00 Spencer Medina [facility] BASIC METABOLIC PANEL (NA, K, CL, CO2, GLUCOSE, BUN, CREATININE, CA) 2023-04-13 02:24:00 Greg Neves [facility] CBC WITHOUT DIFF 2023-04-13 02:24:00 Juana Bower [facility] POCT GLUCOSE (AUTOMATED) 2023-04-13 02:19:00 Lainey Jacob [facility] POCT GLUCOSE (AUTOMATED) 2023-04-12 21:44:00 Lainey Jcaob [facility] MAGNESIUM 2023-04-12 21:37:00 Greg Neves [facility] BASIC METABOLIC PANEL (NA, K, CL, CO2, GLUCOSE, BUN, CREATININE, CA) 2023-04-12 21:37:00 Greg Neves [facility] AC PANEL 20 + LACTIC ACID 2023-04-12 20:40:00 Juana Bower [facility] CBC WITH DIFF 2023-04-12 20:39:00 Greg Neves [facility] BASIC METABOLIC PANEL (NA, K, CL, CO2, GLUCOSE, BUN, CREATININE, CA) 2023-04-12 18:17:00 Greg Neves [facility] POCT GLUCOSE (AUTOMATED) 2023-04-12 17:38:00 Lainey Jacob [facility] CBC WITH DIFF 2023-04-12 14:02:00 Juana Bower [facility] POCT GLUCOSE (AUTOMATED) 2023-04-12 13:33:00 Lainey Jacob [facility] PREPARE PACKED RBC 2023-04-12 13:28:16 Greg Neves [facility] MAGNESIUM 2023-04-12 13:22:00 Juana Bower [facility] BASIC METABOLIC PANEL (NA, K, CL, CO2, GLUCOSE, BUN, CREATININE, CA) 2023-04-12 13:22:00 Juana Bower [facility] XR CHEST 1 VW 2023-04-12 11:40:00 Greg Neves [facility] ABORH CONFIRMATION (LAB ONLY) 2023-04-12 11:31:00 Mohamud Jacob [facility] HB ABO GROUPING 2023-04-12 11:00:00 Greg Neves [facility] AC PANEL 20 + LACTIC ACID 2023-04-12 09:46:00 Balbir Muñoz [facility] PHOSPHORUS 2023-04-12 09:43:00 Greg Neves [facility] MAGNESIUM 2023-04-12 09:43:00 Greg Neves [facility] BASIC METABOLIC PANEL (NA, K, CL, CO2, GLUCOSE, BUN, CREATININE, CA) 2023-04-12 09:43:00 Greg Neves Hardik [facility] CBC WITH DIFF 2023-04-12 09:43:00 Greg Neves Hardik [facility] POCT GLUCOSE (AUTOMATED) 2023-04-12 09:40:00 Lainey Jacob [facility] PHOSPHORUS 2023-04-12 06:22:00 Greg Neves [facility] MAGNESIUM 2023-04-12 06:22:00 Greg Neves [facility] BASIC METABOLIC PANEL (NA, K, CL, CO2, GLUCOSE, BUN, CREATININE, CA) 2023-04-12 06:22:00 Greg Neves [facility] POCT GLUCOSE (AUTOMATED) 2023-04-12 06:21:00 Lainey Jacob [facility] POCT GLUCOSE (AUTOMATED) 2023-04-12 02:28:00 Lainey Jacob [facility] AC PANEL 20 + LACTIC ACID 2023-04-12 01:14:00 Gomez Smalls [facility] PHOSPHORUS 2023-04-12 00:31:00 Greg Neves [facility] MAGNESIUM 2023-04-12 00:31:00 Neves, Greg Hardik [facility] BASIC METABOLIC PANEL (NA, K, CL, CO2, GLUCOSE, BUN, CREATININE, CA) 2023-04-12 00:31:00 Greg Neves [facility] IRON PANEL 2023-04-12 00:31:00 [facility] 2023-04-11 23:47:00 Lainey Jacob [facility] POCT GLUCOSE (AUTOMATED) 2023-04-11 22:59:00 Lainey Jacob [facility] PHOSPHORUS 2023-04-11 21:15:00 Greg Neves [facility] MAGNESIUM 2023-04-11 21:15:00 Greg Neves [facility] BASIC METABOLIC PANEL (NA, K, CL, CO2, GLUCOSE, BUN, CREATININE, CA) 2023-04-11 21:15:00 Greg Neves Hardik [facility] AC PANEL 20 + LACTIC ACID 2023-04-11 21:15:00 Balbir Muñoz [facility] PHOSPHORUS 2023-04-11 17:36:00 Greg Neves [facility] MAGNESIUM 2023-04-11 17:36:00 Greg Neves [facility] BASIC METABOLIC PANEL (NA, K, CL, CO2, GLUCOSE, BUN, CREATININE, CA) 2023-04-11 17:36:00 Greg Nevse [facility] AC PANEL 20 + LACTIC ACID 2023-04-11 17:36[facility]00 [facility]-04-11 14:26:00 Greg Neves [facility] MAGNESIUM 2023-04-11 14:26:00 Greg Neves [facility] BASIC METABOLIC PANEL (NA, K, CL, CO2, GLUCOSE, BUN, CREATININE, CA) 2023-04-11 14:26:00 Greg Neves Hardik [facility] AC PANEL 20 + LACTIC ACID 2023-04-11 14:26:00 [facility]W 2023-04-11 13:47:50 Spencer Medina [facility] CT CHEST PULMONARY ANGIOGRAM 2023-04-11 13:47:27 Spencer Medina [facility] PHOSPHORUS 2023-04-11 09:38:00 Greg Neves [facility] MAGNESIUM 2023-04-11 09:38:00 Greg Neves [facility] BASIC METABOLIC PANEL (NA, K, CL, CO2, GLUCOSE, BUN, CREATININE, CA) 2023-04-11 09:38:00 [facility]-11 09:38:[address] [facility] AC PANEL 20 + LACTIC ACID 2023-04-11 09:38:00 Balbir Muñoz [facility] POCT GLUCOSE (AUTOMATED) 2023-04-11 09:37:00 Lainey Jacob [facility] POCT GLUCOSE (AUTOMATED) 2023-04-11 09:36:00 Lainey Jacob [facility] AC PANEL 20 + LACTIC ACID 2023-04-11 06:17:00 Balbir Muñoz [facility] POCT GLUCOSE (AUTOMATED) 2023-04-11 05:07:00 Lainey Jacob [facility] AC PANEL 20 + LACTIC ACID 2023-04-11 05:05[facility] + LACTIC ACID 2023-04-11 04:05:00 Balbir Muñoz [facility] BASIC METABOLIC PANEL (NA, K, CL, CO2, GLUCOSE, BUN, CREATININE, CA) 2023-04-11 02:56:00 Juana Bower [facility] AC PANEL 20 + LACTIC ACID 2023-04-11 02:56:00 Balbir Muñoz [facility] POCT GLUCOSE (AUTOMATED) 2023-04-11 02:28:00 Lainey Jacob [facility] AC PANEL 20 + LACTIC ACID 2023-04-11 01:46:00 Balbir Muñoz [facility] BASIC METABOLIC PANEL (NA, K, CL, CO2, GLUCOSE, BUN, CREATININE, CA) 2023-04-10 23:17:00 Josef Louis [facility] AC PANEL 20 + LACTIC ACID 2023-04-10 22:30:00 Aiden Tomlin [facility] RESPIRATORY PANEL BY PCR 2023-04-10 21:44:00 Sa noble Tomlin [facility] POCT GLUCOSE (AUTOMATED) 2023-04-10 21:39:00 Lainey Jacob [facility] BASIC METABOLIC PANEL (NA, K, CL, CO2, GLUCOSE, BUN, CREATININE, CA) 2023-04-10 20:37:00 Balbir Muñoz [facility] AC PANEL 20 + LACTIC ACID 2023-04-10 20:24:00 Balbir Muñoz [facility] POCT GLUCOSE (AUTOMATED) 2023-04-10 14:59:00 Lainey Jacob [facility] ABG+COOX+NA+K+GLU+CA2+ 2023-04-10 14:35:00 Meghan Jacob [facility] MAGNESIUM 2023-04-10 10:52:00 Spencer Medina [facility] COMP. METABOLIC PANEL ([id number]) 2023-04-10 10:52:00 Adam [facility] CBC WITH DIFF 2023-04-10 10:52:00 Spencer Medina [facility] GLYCOSYLATED HEMOGLOBIN (A1C) 2023-04-10 10:52:00 Adam [facility] POCT GLUCOSE (AUTOMATED) 2023-04-10 10:52:00 Lainey Jacob [facility] AC PANEL 21 + LACTIC ACID 2023-04-10 09:30:00 Greg Neves [facility] BLOOD CULTURE SCREEN 2023-04-10 09:25:00 Adam [facility] URINALYSIS 2023-04-10 09:21:00 Adam [facility] URINE CULTURE 2023-04-10 09:21:00 Spencer Medina [facility] SPUTUM CULTURE 2023-04-10 09:21:00 Greg Neves [facility] GALV ONLY - INFLUENZA A B RSV PCR 2023-04-10 09:21:00 Greg Neves Hardik [facility] MRSA / MSSA SCREEN BY PCR, NARES 2023-04-10 09:21:00 Greg Neves Hardik [facility] LEGIONELLA AND STREPTOCOCCUS PNEUMONIAE URINARY ANTIGENS 2023-04-10 09:21:00 Greg Neves Hardik [facility] BLOOD CULTURE SCREEN 2023-04-10 09:14:00 Spencer Medina [facility] XR CHEST 1 VW 2023-04-10 09:08:00 Greg Neves [facility] XR KUB 2023-04-10 09:08:00 [facility] 2023-01-19 00:43:35 Mayco Del Rio [facility] TROPONIN I 2023-01-18 23:17:00 Mayco Del Rio [facility] LIPASE 2023-01-18 20:22:00 Mayco Del Rio [facility] TROPONIN I 2023-01-18 20:22:00 [facility] [facility] COMP. METABOLIC PANEL ([id number]) 2023-01-18 20:22:00 Mayco Del Rio [facility] CBC WITH DIFF 2023-01-18 20:22:00 Mayco Del Rio [facility] N-TERMINAL PRO-BNP 2023-01-18 20:22:00 Mayco Del Rio [facility] COVID-19 (ID NOW RAPID TESTING) 2023-01-18 20:22:00 Mayco Del Rio [facility] XR CHEST 2 VW 2023-01-18 19:19:28 Mayco Del Rio [facility] CONSENT/REFUSAL FOR DIAGNOSIS AND TREATMENT 2023-01-18 18:28:56 Doctor Unassigned, [place] [facility] ASSIGNMENT OF BENEFITS 2022-10-05 20:29:02 Docto r Unassigned, [place] [facility] REFERRAL- REQUEST/RESPONSE 2022-09-09 05:01:00 Doctor Unassigned, [place] [facility] URINALYSIS 2022-01-11 18:12:00 Blaise Salas [facility] POCT TEST 2022-01-11 18:12:00 Evaristo Salas [facility] CT LUMBAR SPINE WO CONTRAST 2022-01-11 16:42:35 Blaise Salas [facility] CT THORACIC SPINE WO CONTRAST 2022-01-11 16:42:35 Blaise Salas [facility] COMP. METABOLIC PANEL ([id number]) 2022-01-11 16:27:00 Blaise Salas [facility] CBC WITH DIFF 2022-01-11 16:27:00 Blaise Salas [facility] ACTIVATED PARTIAL THRMPLAS EAGLE 2022-01-11 16:27:00 Blaise Salas [facility] CONSENT/REFUSAL FOR DIAGNOSIS AND TREATMENT 2022-01-11 15:22:37 Doctor Unassigned, [place] [facility] URINALYSIS 2021-08-19 03:07:00 Patrick Singh [facility] NOTICE OF PRIVACY PRACTICES 2021-08-18 23:46:31 Doctor Unassigned, [place] [facility] CONSENT/REFUSAL FOR DIAGNOSIS AND TREATMENT 2021-08-18 23:46:18 Doctor Unassigned, [place] [facility] Encounters Start Date/Time End Date/Time Encounter Type Admission Type Attending Clinicians Care Facility Care Department Encounter ID Source 2023-10-12 09:30:00 2023-10-12 09:30:00 Outpatient HIREN MCKEON [facility] [id number] [facility] 2023-08-03 10:30:00 2023-08-03 10:30:00 Outpatient HIREN MCKEON [facility] [id number] [facility] 2023-04-22 00:00:00 2023-04-22 00:00:00 Ling Byrnes [facility] 1.2.840.114 350.1.13.10 4.2.7.2.686 [id number] [facility] 2023-04-21 00:00:00 2023-04-21 00:00:00 Transition of Care Apurva Ba 1.2.840.114 350.1.13.10 4.2.7.2.686 [id number] [facility] 2023-04-10 01:46:00 2023-04-20 18:38:00 Inpatient U DAVINA BOYD [facility] DANIEL [id number] [facility] 2023-04-10 01:46:00 2023-04-20 18:38:00 Hospital Encounter Mohamud Jacob, Davina Ratliff [facility] 1.2.840.114 350.1.13.10 4.2.7.2.686 [id number] [facility] 2023-04-18 00:00:00 2023-04-18 00:00:00 Telephone Josef Galvez [facility] 1.2.840.114 350.1.13.10 4.2.7.2.686 [id number] [facility] 2023-01-18 13:35:00 2023-01-18 20:19:00 Emergency X MAYCO DEL RIO [facility] ERT [id number] [facility] 2023-01-18 13:35:00 2023-01-18 20:19:00 Emergency Mayco Del Rio [facility] 1.2.840.114 350.1.13.10 4.2.7.2.686 [id number] [facility] 2022-11-05 14:30:00 2022-11-05 15:15:00 Ancillary Visit [facility]ali [facility] 1.2.840.114 350.1.13.10 4.2.7.2.686 [id number] [facility] 2022-11-05 14:30:00 2022-11-05 14:30:00 Outpatient GARRETT QUESADA [facility] [id number] [facility] 2022 13:45:00 2022 15:05:10 Ancillary Visit Mayco Greer [facility] 1.2.840.114 350.1.13.10 4.2.7.2.686 [id number] [facility] 2022-10-26 13:45:00 2022-10-26 15:21:35 Outpatient GARRETT QUESADA [facility] [id number] [facility] 2022-10-26 13:45:00 2022-10-26 14:30:00 Ancillary Visit Sandra Clarke Craig L [facility] 1.2.840.114 350.1.13.10 4.2.7.2.686 [id number] [facility] 2022-10-22 15:15:00 2022-10-22 16:00:00 Ancillary Visit Shefali Whitney Craig L [facility] 1.2.840.114 350.1.13.10 4.2.7.2.686 [id number] [facility] 2022-10-13 14:30:00 2022-10-13 14:30:00 Outpatient GARRETT QUESADA [facility] [id number] [facility] 2022-10-05 15:15:00 2022-10-05 16:22:29 Ancillary Visit Fabiana Sanderson Craig L [facility] 1.2.840.114 350.1.13.10 4.2.7.2.686 [id number] [facility] 2022-10-05 00:00:00 2022-10-05 00:00:00 Orders Only Doctor Unassigned, [place] [facility] 1.2.840.114 350.1.13.10 4.2.7.2.686 [id number] [facility] 2022-09-09 00:00:00 2022-09-09 00:00:00 Orders Only Doctor Unassigned, [place] [facility] 1.2.840.114 350.1.13.10 4.2.7.2.686 [id number] [facility] 2022-01-11 10:36:00 2022-01-11 14:53:00 Emergency X BLAISE SALAS [facility] ERT [id number] [facility] 2022-01-11 10:36:00 2022-01-11 14:53:00 Emergency Blaise Salas [facility] 1.2.840.114 350.1.13.10 4.2.7.2.686 [id number] [facility] 2021-08-18 19:42:00 2021-08-19 00:05:00 Emergency X PATRICK SINGH [facility] ERT [id number] [facility] 2021-08-18 19:42:00 2021-08-19 00:05:00 Emergency Patrick Singh [facility] 1.2.840.114 350.1.13.10 4.2.7.2.686 [id number] [facility] 2021-04-13 09:40:00 2021-04-13 09:40:00 Outpatient Paras Ziegler [facility] [id number] [facility] 2020-06-23 11:08:00 2020-06-23 11:08:00 Emergency X [facility] ERT [id number] [facility] Results Test Description Test Time Test Comments Results Result Co mments Source [facility] GLUCOSE (AUTOMATED)2023-04-20 17:29:39* Test Item Value Reference Range Interpretation Comme nts POCT GLU (test code = 5304566915) 154 mg/dL 70-110 H Lab Interpretation (test cod e = 42019-5) Abnormal [facility] GLUCOSE (AUTOMATED)2023-04-20 14:37:51* Test Item Value Reference Range Interpretation Comme nts POCT GLU (test code = 2877411661) 84 mg/dL 70-110 Lab Interpretation (test cod e = 98260-7) Normal [facility] GLUCOSE (AUTOMATED)2023-04-20 03:10:53* Test Item Value Reference Range Interpretation Comme nts POCT GLU (test code = 6386776071) 114 mg/dL 70-110 H Lab Interpretation (test cod e = 21329-1) Abnormal [facility] GLUCOSE (AUTOMATED)2023-04-20 00:46:53* Test Item Value Reference Range Interpretation Comme nts POCT GLU (test code = 8969722740) 120 mg/dL 70-110 H Lab Interpretation (test cod e = 49910-7) Abnormal [facility] GLUCOSE (AUTOMATED)2023-04-19 17:48:46* Test Item Value Reference Range Interpretation Comme nts POCT GLU (test code = 7603772913) 215 mg/dL 70-110 H Lab Interpretation (test cod e = 78214-2) Abnormal [facility] GLUCOSE (AUTOMATED)2023-04-19 02:42:44* Test Item Value Reference Range Interpretation Comme nts POCT GLU (test code = 4120798086) 136 mg/dL 70-110 H Notified Provide r Lab Interpretation (test code = 57630-6) Abnormal [facility] GLUCOSE (AUTOMATED)2023-04-18 23:46:41* Test Item Value Reference Range Interpretation Comme nts POCT GLU (test code = 6911946020) 131 mg/dL 70-110 H Lab Interpretation (test cod e = 61667-2) [facility] [id number] 22:02:05* Test Item Value Reference Range Interpretation Comme nts Blood Culture-Aerobic (test code = 12187-7) No organisms isolated No growth Previous preliminary verified result was Culture In Progress on 04/13/2023 at 1901 CSTPrevious preliminary verified result was No growth at 24 hours on 04/14/2023 at 1601 CSTPrevious preliminary verified result was No growth at 48 hours on 04/15/2023 at 1601 CSTPrevious preliminary verified result was No growth at 72 hours on 04/16/2023 at 1602 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 Blood Culture-Anaerobic (test code = 22467-6) No organisms isolated No growth Previous preliminary verified result was Culture In Progress on 04/13/2023 at 1901 CSTPrevious preliminary verified result was No growth at 24 hours on 04/14/2023 at 1601 CSTPrevious preliminary verified result was No growth at 48 hours on 04/15/2023 at 1601 CSTPrevious preliminary verified result was No growth at 72 hours on 04/16/2023 at 1602 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 Lab Interpretation (test code = 02138-8) Normal [facility] CULTURE [id number] 22:02:05* Test Item Value Reference Range Interpretation Comme nts Blood Culture-Aerobic (test code = 28375-0) No organisms isolated No growth Previous preliminary verified result was Culture In Progress on 04/13/2023 at 1901 CSTPrevious preliminary verified result was No growth at 24 hours on 04/14/2023 at 1601 CSTPrevious preliminary verified result was No growth at 48 hours on 04/15/2023 at 1601 CSTPrevious preliminary verified result was No growth at 72 hours on 04/16/2023 at 1602 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 Blood Culture-Anaerobic (test code = 53175-0) No organisms isolated No growth Previous preliminary verified result was Culture In Progress on 04/13/2023 at 1901 CSTPrevious preliminary verified result was No growth at 24 hours on 04/14/2023 at 1601 CSTPrevious preliminary verified result was No growth at 48 hours on 04/15/2023 at 1601 CSTPrevious preliminary verified result was No growth at 72 hours on 04/16/2023 at 1602 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 Lab Interpretation (test code = 73913-4) [facility] (NA, K, CL, CO2, GLUCOSE, BUN, CREATININE, CA)2023-04-18 17:10:51* Test Item Value Reference Range Interpretation Comme nts NA (test code = 0829606836) 138 mmol/L 135-145 K (test code = 3450405299) 3.8 mmol/L 3.5-5.0 CL (test code = 2513609550) 102 mmol/L 98-108 CO2 TOTAL (test code = 9049117650) 28 mmol/L 23-31 AGAP (test code = 7045673718) 8 2-16 BUN (test code = 3651397117) 24 mg/dL 7-23 H GLUCOSE (test code = 4479791096) 142 mg/dL 70-110 H CREATININE (test code = 4113950200) 0.87 mg/dL 0.50-1.04 CALCIUM (test code = 8853283035) 9.1 mg/dL 8.6-10.6 eGFR (test code = 01515-9) 81.8 mL/min/1.73m2 CKD-EPI eGFR (2020). Assuming creatinine has been stable day-to-day for at least three months, the eGFR indicates Category G2 (60 - 89 mL/min/1.73 m2) Lab Interpretation (test code = 82041-2) [facility] 17:10:51* Test Item Value Reference Range Interpretation Comme nts MAGNESIUM (test code = 7374796114) 2.1 mg/dL 1.7-2.4 Lab Interpretation (test cod e = 49464-4) Normal [facility] [id number] 17:01:50* Test Item Value Reference Range Interpretation [...] result as normal/abnormal. MPV (test code = 81392-9) 10.1 fL 9.5-12.9 RDW-CV (test code = 788-0) 18.2 % 12.0-15.5 H RDW-SD (test code = 46455-8) 48.7 fL 39.0-49.9 NRBC x10^3 (test code = 6119616393) 0.05 See_Comment [Automated messa ge] The system which generated this result transmitted reference range: 10*3/?L. The reference range was not used to interpret this result as normal/abnormal. NRBC/100 WBC (test code = 5301232682) 0.3 See_Comment [Automated messa ge] The system which generated this result transmitted reference range: 0.0 - 10.0 /100 WBCs. The reference range was not used to interpret this result as normal/abnormal. IPF % (test code = 3448570982) Lab Interpretation (test code = 23451-6) Abnormal [facility] GLUCOSE (AUTOMATED)2023-04-18 15:46:32* Test Item Value Reference Range Interpretation Comme nts POCT GLU (test code = 7281580938) 184 mg/dL 70-110 H Lab Interpretation (test cod e = 18377-6) Abnormal [facility] GLUCOSE (AUTOMATED)2023-04-18 03:34:32* Test Item Value Reference Range Interpretation Comme nts POCT GLU (test code = 0674570396) 159 mg/dL 70-110 H Lab Interpretation (test cod e = 65913-4) Abnormal [facility] GLUCOSE (AUTOMATED)2023-04-17 23:26:18* Test Item Value Reference Range Interpretation Comme nts POCT GLU (test code = 9745845819) 147 mg/dL 70-110 H Lab Interpretation (test cod e = 65150-4) Abnormal [facility] GLUCOSE (AUTOMATED)2023-04-17 18:40:56* Test Item Value Reference Range Interpretation Comme nts POCT GLU (test code = 7270408674) 115 mg/dL 70-110 H Lab Interpretation (test cod e = 19198-3) [facility] [id number] 18:34:04* Test Item Value Reference Range Interpretation Comme nts SPUTUM CULTURE (test code = 622-1) 1+ Respiratory guillermina: Commensal upper respiratory microorganisms only. Gram stain (test code = 664-3) Moderate PMNs or Mononuclear cells observed CECIL (test code = CECIL) Bacterial pathogens associated with lower respiratory infections were not identified, which include Pseudomonas aeruginosa and Staphylococcus aureus (MRSA or MSSA). [facility] GLUCOSE (AUTOMATED)2023-04-17 15:36:28* Test Item Value Reference Range Interpretation Comme nts POCT GLU (test code = 4973249161) 109 mg/dL 70-110 Lab Interpretation (test cod e = 36051-4) Normal [facility] GLUCOSE (AUTOMATED)2023-04-17 01:46:11* Test Item Value Reference Range Interpretation Comme nts POCT GLU (test code = 6027321792) 106 mg/dL 70-110 Lab Interpretation (test cod e = 12138-4) Normal [facility] GLUCOSE (AUTOMATED)2023-04-16 22:45:17* Test Item Value Reference Range Interpretation Comme nts POCT GLU (test code = 2525956889) 80 mg/dL 70-110 Lab Interpretation (test cod e = 51932-4) Normal [facility] GLUCOSE (AUTOMATED)2023-04-16 18:05:34* Test Item Value Reference Range Interpretation Comme nts POCT GLU (test code = 3933298748) 101 mg/dL 70-110 Lab Interpretation (test cod e = 98267-9) Normal [facility] GLUCOSE (AUTOMATED)2023-04-16 14:50:37* Test Item Value Reference Range Interpretation Comme nts POCT GLU (test code = 1596887523) 121 mg/dL 70-110 H Lab Interpretation (test cod e = 34237-2) Abnormal [facility] WITH [id number] 10:48:50* Test Item Value Reference Range Interpretation [...] g/dL 31.6-35.1 L RDW-SD (test code = 01905-0) 50.4 fL 39.0-49.9 H RDW-CV (test code = 788-0) 18.5 % 12.0-15.5 H PLT (test code = 777-3) 282 See_Comment [Automated message] The system which generated this result transmitted reference range: 166 - 358 10*3/?L. The reference range was not used to interpret this result as normal/abnormal. MPV (test code = 70160-2) 9.7 fL 9.5-12.9 NRBC/100 WBC (test code = 9879429157) 0.6 See_Comment [Automated message] The system which generated this result transmitted reference range: 0.0 - 10.0 /100 WBCs. The reference range was not used to interpret this result as normal/abnormal. NRBC x10^3 (test code = 0737662390) 0.10 See_Comment [Automated message] The system which generated this result transmitted reference range: 10*3/?L. The reference range was not used to interpret this result as normal/abnormal. GRAN MAT (NEUT) % (test code = 770-8) 69.9 % IMM GRAN % (test code = 9233366077) 5.10 % LYMPH % (test code = 736-9) 14.7 % MONO % (test code = 5905-5) 9.7 % EOS % (test code = 713-8) 0.4 % BASO % (test code = 706-2) 0.2 % GRAN MAT x10^3(ANC) (test code = 2801223341) 10.82 10*3/uL 1.88-7.09 H IMM GRAN x10^3 (test code = 9068920626) 0.79 10*3/uL 0.00-0.06 H LYMPH x10^3 (test code = 731-0) 2.28 10*3/uL 1.32-3.29 MONO x10^3 (test code = 742-7) 1.51 10*3/uL 0.33-0.92 H EOS x10^3 (test code = 711-2) 0.06 10*3/uL 0.03-0.39 BASO x10^3 (test code = 704-7) 0.03 10*3/uL 0.01-0.07 BANDS (test code = 7948093852) Increased A Lab Interpretation (test code = 15769-4) Abnormal [facility] METABOLIC PANEL (NA, K, CL, CO2, GLUCOSE, BUN, CREATININE, CA)2023-04-16 10:31:41* Test Item Value Reference Range Interpretation Comme nts NA (test code = 0678316579) 144 mmol/L 135-145 K (test code = 3353818225) 3.6 mmol/L 3.5-5.0 CL (test code = 7127456354) 106 mmol/L 98-108 CO2 TOTAL (test code = 0331725829) 33 mmol/L 23-31 H AGAP (test code = 3277863121) 5 2-16 BUN (test code = 1155936168) 21 mg/dL 7-23 GLUCOSE (test code = 1646665989) 94 mg/dL 70-110 CREATININE (test code = 0957287624) 0.66 mg/dL 0.50-1.04 CALCIUM (test code = 8843333744) 8.8 mg/dL 8.6-10.6 eGFR (test code = 63883-8) 107.7 mL/min/1.73m2 CKD-EPI eGFR (2020). Assuming creatinine has been stable day-to-day for at least three months, the eGFR indicates Category G1 (>= 90 mL/min/1.73 m2) Lab Interpretation (test code = 39834-3) [facility] 10:31:41* Test Item Value Reference Range Interpretation Comme nts MAGNESIUM (test code = 7358658990) 2.0 mg/dL 1.7-2.4 Lab Interpretation (test cod e = 30335-2) Normal [facility] GLUCOSE (AUTOMATED)2023-04-16 10:00:09* Test Item Value Reference Range Interpretation Comme nts POCT GLU (test code = 7958783464) 97 mg/dL 70-110 Lab Interpretation (test cod e = 78898-9) Normal [facility] GLUCOSE (AUTOMATED)2023-04-16 07:04:19* Test Item Value Reference Range Interpretation Comme nts POCT GLU (test code = 0398123525) 146 mg/dL 70-110 H Lab Interpretation (test cod e = 49770-4) Abnormal [facility] METABOLIC PANEL (NA, K, CL, CO2, GLUCOSE, BUN, CREATININE, CA)2023-04-16 02:51:09* Test Item Value Reference Range Interpretation Comme nts NA (test code = 8101525151) 146 mmol/L 135-145 H K (test code = 0579944274) 4.1 mmol/L 3.5-5.0 CL (test code = 9388442566) 110 mmol/L 98-108 H CO2 TOTAL (test code = 5321832358) 31 mmol/L 23-31 AGAP (test code = 1703631581) 5 2-16 BUN (test code = 9612704900) 24 mg/dL 7-23 H GLUCOSE (test code = 9702235915) 98 mg/dL 70-110 CREATININE (test code = 3688191583) 0.65 mg/dL 0.50-1.04 CALCIUM (test code = 7574759981) 9.5 mg/dL 8.6-10.6 eGFR (test code = 09395-7) 108.1 mL/min/1.73m2 CKD-EPI eGFR (2020). Assuming creatinine has been stable day-to-day for at least three months, the eGFR indicates Category G1 (>= 90 mL/min/1.73 m2) Lab Interpretation (test code = 44638-7) [facility]23-[facility]-16 01:50:31* Test Item Value Reference Range Interpretation Comme [facility] POCT GLU (test code = 4337647927) 89 mg/dL 70-110 Lab Interpretation (test cod e = 29949-4) [facility]2023-[facility]-01 23:50:09* Test Item Value Reference Range Interpretation Comme [facility] MAGNESIUM (test code = 5253566098) 2.2 mg/dL 1.7-2.4 Lab Interpretation (test cod e = 75826-1) Normal [facility] METABOLIC PANEL (NA, K, CL, CO2, GLUCOSE, BUN, CREATININE, CA)2023-04-15 23:50:09* Test Item Value Reference Range Interpretation Comme [facility] NA (test code = 7251102683) 150 mmol/L 135-145 H K (test code = 8905079442) 4.4 mmol/L 3.5-5.0 CL (test code = 3297399838) 112 mmol/L 98-108 H CO2 TOTAL (test code = 0732406589) 34 mmol/L 23-31 H AGAP (test code = 4933828659) 4 2-16 BUN (test code = 4805165873) 26 mg/dL 7-23 H GLUCOSE (test code = 6542406481) 107 mg/dL 70-110 CREATININE (test code = 5906603409) 0.68 mg/dL 0.50-1.04 CALCIUM (test code = 4260526640) 9.6 mg/dL 8.6-10.6 eGFR (test code = 38195-2) 106.9 mL/min/1.73m2 CKD-EPI eGFR (2020). Assuming creatinine has been stable day-to-day for at least three months, the eGFR indicates Category G1 (>= 90 mL/min/1.73 m2) Lab Interpretation (test code = 58259-7) [facility]2023-04-15 15:23:47* Test Item Value Reference Range Interpretation Comme nts POCT GLU (test code = 6876010650) 165 mg/dL 70-110 H Lab Interpretation (test cod e = 15343-3) Abnormal [facility] METABOLIC PANEL (NA, K, CL, CO2, GLUCOSE, BUN, CREATININE, CA)2023-04-15 10:45:28* Test Item Value Reference Range Interpretation Comme nts NA (test code = 4886029964) 147 mmol/L 135-145 H K (test code = 2553610922) 5.0 mmol/L 3.5-5.0 CL (test code = 5617243679) 110 mmol/L 98-108 H CO2 TOTAL (test code = 4647799010) 31 mmol/L 23-31 AGAP (test code = 2002245907) 6 2-16 BUN (test code = 1760187972) 23 mg/dL 7-23 GLUCOSE (test code = 2531657468) 167 mg/dL 70-110 H CREATININE (test code = 0930476862) 0.74 mg/dL 0.50-1.04 CALCIUM (test code = 4003856270) 9.4 mg/dL 8.6-10.6 eGFR (test code = 22732-9) 99.3 mL/min/1.73m2 CKD-EPI eGFR (2020). Assuming creatinine has been stable day-to-day for at least three months, the eGFR indicates Category G1 (>= 90 mL/min/1.73 m2) Lab Interpretation (test code = 46483-6) [facility] 10:45:28* Test Item Value Reference Range Interpretation Comme nts MAGNESIUM (test code = 4928652692) 2.2 mg/dL 1.7-2.4 Lab Interpretation (test cod e = 54582-4) Normal [facility] WITH [id number] 10:29:32* Test Item Value Reference Range Interpretation [...] g/dL 31.6-35.1 L RDW-SD (test code = 27858-0) 50.7 fL 39.0-49.9 H RDW-CV (test code = 788-0) 18.5 % 12.0-15.5 H PLT (test code = 777-3) 314 See_Comment [Automated message] The system which generated this result transmitted reference range: 166 - 358 10*3/?L. The reference range was not used to interpret this result as normal/abnormal. MPV (test code = 26848-8) 10.1 fL 9.5-12.9 NRBC/100 WBC (test code = 6451321602) 0.4 See_Comment [Automated message] The system which generated this result transmitted reference range: 0.0 - 10.0 /100 WBCs. The reference range was not used to interpret this result as normal/abnormal. NRBC x10^3 (test code = 8483167097) 0.05 See_Comment [Automated message] The system which generated this result transmitted reference range: 10*3/?L. The reference range was not used to interpret this result as normal/abnormal. GRAN MAT (NEUT) % (test code = 770-8) 84.0 % IMM GRAN % (test code = 6826120529) 5.60 % LYMPH % (test code = 736-9) 6.7 % MONO % (test code = 5905-5) 3.5 % EOS % (test code = 713-8) 0.0 % BASO % (test code = 706-2) 0.2 % GRAN MAT x10^3(ANC) (test code = 0477448547) 11.16 10*3/uL 1.88-7.09 H IMM GRAN x10^3 (test code = 0609125364) 0.74 10*3/uL 0.00-0.06 H LYMPH x10^3 (test code = 731-0) 0.89 10*3/uL 1.32-3.29 L MONO x10^3 (test code = 742-7) 0.46 10*3/uL 0.33-0.92 EOS x10^3 (test code = 711-2) 0.03-0.39 L BASO x10^3 (test code = 704-7) 0.03 10*3/uL 0.01-0.07 Lab Interpretation (test code = 71622-2) [facility] [id number] 10:02:01* Test Item Value Reference Range Interpretation Comme nts Blood Culture-Aerobic (test code = 71897-4) No organisms isolated No growth Previous preliminary verified result was Culture In Progress on 04/10/2023 at 0701 CSTPrevious preliminary verified result was No growth at 24 hours on 04/11/2023 at 0401 CSTPrevious preliminary verified result was No growth at 48 hours on 04/12/2023 at 0401 CSTPrevious preliminary verified result was No growth at 72 hours on 04/13/2023 at 0401 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 Blood Culture-Anaerobic (test code = 16930-5) No organisms isolated No growth Previous preliminary verified result was Culture In Progress on 04/10/2023 at 0701 CSTPrevious preliminary verified result was No growth at 24 hours on 04/11/2023 at 0401 CSTPrevious preliminary verified result was No growth at 48 hours on 04/12/2023 at 0401 CSTPrevious preliminary verified result was No growth at 72 hours on 04/13/2023 at 0401 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 Lab Interpretation (test code = 59524-2) Normal [facility] GLUCOSE (AUTOMATED)2023-04-15 09:40:18* Test Item Value Reference Range Interpretation Comme nts POCT GLU (test code = 9965950591) 175 mg/dL 70-110 H Lab Interpretation (test cod e = 93105-4) Abnormal [facility] GLUCOSE (AUTOMATED)2023-04-15 05:52:07* Test Item Value Reference Range Interpretation Comme nts POCT GLU (test code = 0773752717) 160 mg/dL 70-110 H Lab Interpretation (test cod e = 00027-9) [facility] [id number] 02:24:38* Test Item Value Reference Range Interpretation Comme nts PH (test code = 9660566373) 7.40 7.32-7.42 PCO2 CARLOS (test code = 1679946125) 44 See_Comment [Automated messa ge] The system which generated this result transmitted reference range: 41 - 51 mmHg. The reference range was not used to interpret this result as normal/abnormal. PO2 CARLOS (test code = 8082582785) 40 See_Comment [Automated messa ge] The system which generated this result transmitted reference range: 25 - 40 mmHg. The reference range was not used to interpret this result as normal/abnormal. HCO3 CARLOS (test code = 9764586872) 26 See_Comment [Automated messa ge] The system which generated this result transmitted reference range: 24 - 28 mEq/L. The reference range was not used to interpret this result as normal/abnormal. AC VBE(BEAKER) (test code = 1062820522) 1.7 mEq/L THB CARLOS (test code = 6918925030) 7.9 g/dL 12.0-16.0 LL %O2HB CARLOS (test code = 5160162831) 67.9 % 52.0-63.0 H %COHB CARLOS (test code = 3457851795) 0.1 % 0.0-1.5 %METHB CARLOS (test code = 6540294916) 0.3 % 0.4-1.5 L VOL%O2 CARLOS (test code = 8570243961) 7.6 % 6.0-12.0 NA (test code = 6767402992) 147 mmol/L 135-145 H K+ (test code = 8193405796) 4.7 mmol/L 3.5-5.0 AC CA IONZ (test code = 5768330613) 4.80 mg/dL 4.50-5.30 GLUCOSE (test code = 1493553647) 131 mg/dL 70-110 H LACTIC ACID (test code = 8126823325) 0.76 mmol/L 0.50-2.20 Lab Interpretation (test code = 38896-8) [facility] 02:09:20* Test Item Value Reference Range Interpretation Comme nts POCT GLU (test code = 4659371727) 148 mg/dL 70-110 H Lab Interpretation (test cod e = 45515-2) [facility] 00:22:49* Test Item Value Reference Range Interpretation Comme nts PHOSPHORUS (test code = 0393499536) 4.3 mg/dL 2.5-5.0 Lab Interpretation (test cod e = 04081-5) [facility] (NA, K, CL, CO2, GLUCOSE, BUN, CREATININE, CA)2023-04-14 21:33:21* Test Item Value Reference Range Interpretation Comme nts NA (test code = 1011028502) 149 mmol/L 135-145 H K (test code = 8950159363) 4.5 mmol/L 3.5-5.0 CL (test code = 7345362478) 115 mmol/L 98-108 H CO2 TOTAL (test code = 8180202695) 29 mmol/L 23-31 AGAP (test code = 4672106938) 5 2-16 BUN (test code = 9773341365) 20 mg/dL 7-23 GLUCOSE (test code = 5713899770) 138 mg/dL 70-110 H CREATININE (test code = 9905565685) 0.75 mg/dL 0.50-1.04 CALCIUM (test code = 2738962369) 8.9 mg/dL 8.6-10.6 eGFR (test code = 24949-5) 97.7 mL/min/1.73m2 CKD-EPI eGFR (2020). Assuming creatinine has been stable day-to-day for at least three months, the eGFR indicates Category G1 (>= 90 mL/min/1.73 m2) Lab Interpretation (test code = 01377-7) [facility] 21:33:21* Test Item Value Reference Range Interpretation Comme [facility] MAGNESIUM (test code = 2449481717) 1.8 mg/dL 1.7-2.4 Lab Interpretation (test cod e = 48762-6) [facility]2023-04-14 18:16:52* Test Item Value Reference Range Interpretation Comme [facility] POCT GLU (test code = 7229465652) 128 mg/dL 70-110 H Lab Interpretation (test cod e = 21336-0) [facility] 15:27:55* Test Item Value Reference Range Interpretation Comme [facility] LIPASE (test code = 9835350918) 164 U/L 0-220 Lab Interpretation (test cod e = 34194-4) [facility] + LACTIC [id number] 15:02:09* Test Item Value Reference Range Interpretation Comme nts PH (test code = 2596906645) 7.34 7.32-7.42 PCO2 CARLOS (test code = 9715258394) 49 See_Comment [Automated messa ge] The system which generated this result transmitted reference range: 41 - 51 mmHg. The reference range was not used to interpret this result as normal/abnormal. PO2 CARLOS (test code = 0982814313) 45 See_Comment H [Automated messa ge] The system which generated this result transmitted reference range: 25 - 40 mmHg. The reference range was not used to interpret this result as normal/abnormal. HCO3 CARLOS (test code = 7518871124) 26 See_Comment [Automated messa ge] The system which generated this result transmitted reference range: 24 - 28 mEq/L. The reference range was not used to interpret this result as normal/abnormal. AC VBE(BEAKER) (test code = 3014342264) 0.1 mEq/L THB CARLOS (test code = 4065739096) 10.8 g/dL 12.0-16.0 L %O2HB CARLOS (test code = 2582032980) 75.1 % 52.0-63.0 H %COHB CARLOS (test code = 4847181683) 0.1 % 0.0-1.5 %METHB CARLOS (test code = 3844980552) 0.0 % 0.4-1.5 L VOL%O2 CARLOS (test code = 5000963010) 11.4 % 6.0-12.0 NA (test code = 1317302322) 146 mmol/L 135-145 H K+ (test code = 3537503508) 3.4 mmol/L 3.5-5.0 L AC CA IONZ (test code = 3437495925) 5.00 mg/dL 4.50-5.30 GLUCOSE (test code = 6258048700) 110 mg/dL 70-110 LACTIC ACID (test code = 5608678893) 0.67 mmol/L 0.50-2.20 Lab Interpretation (test code = 99111-0) [facility]-30 10:53:56* Test Item Value Reference Range Interpretation Comme nts PHOSPHORUS (test code = 6788412512) 3.4 mg/dL 2.5-5.0 Lab Interpretation (test cod e = 54214-9) [facility] (NA, K, CL, CO2, GLUCOSE, BUN, CREATININE, CA)2023-04-14 10:53:55* Test Item Value Reference Range Interpretation Comme nts NA (test code = 3861955579) 143 mmol/L 135-145 K (test code = 4699522499) 3.0 mmol/L 3.5-5.0 L CL (test code = 6082812643) 111 mmol/L 98-108 H CO2 TOTAL (test code = 3057553429) 29 mmol/L 23-31 AGAP (test code = 8083347510) 3 2-16 BUN (test code = 4980831175) 22 mg/dL 7-23 GLUCOSE (test code = 6105487019) 123 mg/dL 70-110 H CREATININE (test code = 2292864629) 0.85 mg/dL 0.50-1.04 CALCIUM (test code = 1544681515) 8.8 mg/dL 8.6-10.6 eGFR (test code = 54362-2) 84.1 mL/min/1.73m2 CKD-EPI eGFR (2020). Assuming creatinine has been stable day-to-day for at least three months, the eGFR indicates Category G2 (60 - 89 mL/min/1.73 m2) Lab Interpretation (test code = 49080-0) [facility]20[facility]-30 10:53:55* Test Item Value Reference Range Interpretation Comme nts MAGNESIUM (test code = 0966800136) 1.8 mg/dL 1.7-2.4 Lab Interpretation (test cod e = 15700-0) [facility] WITH [id number] 10:29:17* Test Item Value Reference Range Interpretation [...] g/dL 31.6-35.1 L RDW-SD (test code = 87101-1) 52.5 fL 39.0-49.9 H RDW-CV (test code = 788-0) 18.4 % 12.0-15.5 H PLT (test code = 777-3) 342 See_Comment [Automated messa ge] The system which generated this result transmitted reference range: 166 - 358 10*3/?L. The reference range was not used to interpret this result as normal/abnormal. MPV (test code = 40057-3) 9.8 fL 9.5-12.9 NRBC/100 WBC (test code = 0186504881) 0.4 See_Comment [Automated [employer] ssage] The system which generated this result transmitted reference range: 0.0 - 10.0 /100 WBCs. The reference range was not used to interpret this result as normal/abnormal. NRBC x10^3 (test code = 4913296509) 0.05 See_Comment [Automated messa ge] The system which generated this result transmitted reference range: 10*3/?L. The reference range was not used to interpret this result as normal/abnormal. GRAN MAT (NEUT) % (test code = 770-8) 72.8 % IMM GRAN % (test code = 9521493250) 3.30 % LYMPH % (test code = 736-9) 13.4 % MONO % (test code = 5905-5) 9.1 % EOS % (test code = 713-8) 1.2 % BASO % (test code = 706-2) 0.2 % GRAN MAT x10^3(ANC) (test code = 2382871670) 8.92 10*3/uL 1.88-7.09 H IMM GRAN x10^3 (test code = 4488114638) 0.41 10*3/uL 0.00-0.06 H LYMPH x10^3 (test code = 731-0) 1.65 10*3/uL 1.32-3.29 MONO x10^3 (test code = 742-7) 1.12 10*3/uL 0.33-0.92 H EOS x10^3 (test code = 711-2) 0.15 10*3/uL 0.03-0.39 BASO x10^3 (test code = 704-7) 0.01-0.07 POLYCHROMASIA (test code = 02974-8) 2+ See_Comment [Automated messa ge] The system which generated this result transmitted reference range: 2+. The reference range was not used to interpret this result as normal/abnormal. REACT LYMPHS (test code = 8283543459) Rare Lab Interpretation (test code = 94921-9) Abnormal [facility] GLUCOSE (AUTOMATED)2023-04-14 09:44:14* Test Item Value Reference Range Interpretation Comme nts POCT GLU (test code = 6709613110) 130 mg/dL 70-110 H Lab Interpretation (test cod e = 08355-8) [facility] AntonioFERRITIN [id number] 08:46:39* Test Item Value Reference Range Interpretation Comme nts FERRITIN (test code = 3955436743) 12.8 ng/mL 6.0-137.0 CECIL (test code = CECIL) Biotin has been reported to cause a negative bias, interpret results relative to patient's use of biotin. Lab Interpretation (test code = 30338-5) Normal [facility] GLUCOSE (AUTOMATED)2023-04-14 06:13:40* Test Item Value Reference Range Interpretation Comme nts POCT GLU (test code = 1908349370) 116 mg/dL 70-110 H Lab Interpretation (test cod e = 46293-8) [facility] AntonioLOW-DENSITY LIPOPROTEIN, [id number] 03:10:41* Test Item Value Reference Range Interpretation Comme nts dLDL Chol (test code = 47091-2) 62 mg/dL <=130 Lab Interpretation (test cod e = 74384-9) [facility] Antonio[facility]IPID [facility] (87255)(TOTAL CHOLESTEROL, TRIGLYCERIDES, HDL)2023-04-14 02:52:51* Test Item Value Reference Range Interpretation Comme nts CHOL (test code = 5850997003) 147 mg/dL 120-200 HDL (test code = 8262988235) 22 mg/dL >=50 L HDLC RATIO (test code = 3364517730) 6.7 <=4.5 H TRIG (test code = 8275577642) 478 mg/dL 30-170 H LDL CHOL (test code = 78459-2) Unable to calcul ate LDL due to elevated triglyceride level greater than 400 mg/dL. VLDL (test code = 9071284216) 96 mg/dL 5-60 H Lab Interpretation (test code = 88770-9) [facility] PAN[facility] 21 + LACTIC [id number] 02:47:16* Test Item Value Reference Range Interpretation Comme nts PH (test code = 6555763117) 7.32 7.32-7.42 PCO2 CARLOS (test code = 1520566655) 55 See_Comment H [Automated messa ge] The system which generated this result transmitted reference range: 41 - 51 mmHg. The reference range was not used to interpret this result as normal/abnormal. PO2 CARLOS (test code = 6658574337) 55 See_Comment HH [Automated messa ge] The system which generated this result transmitted reference range: 25 - 40 mmHg. The reference range was not used to interpret this result as normal/abnormal. HCO3 CARLOS (test code = 2376404818) 27 See_Comment [Automated messa ge] The system which generated this result transmitted reference range: 24 - 28 mEq/L. The reference range was not used to interpret this result as normal/abnormal. AC VBE(BEAKER) (test code = 1568190500) 1.2 mEq/L THB CARLOS (test code = 4361445692) 8.7 g/dL 12.0-16.0 L %O2HB CARLOS (test code = 6563621226) 83.5 % 52.0-63.0 H %COHB CARLOS (test code = 1045955228) 0.2 % 0.0-1.5 %METHB CARLOS (test code = 0512797521) 0.3 % 0.4-1.5 L VOL%O2 CARLOS (test code = 0054707361) 10.3 % 6.0-12.0 NA (test code = 2419787451) 143 mmol/L 135-145 K+ (test code = 0114341852) 3.5 mmol/L 3.5-5.0 AC CA IONZ (test code = 6254650159) 5.10 mg/dL 4.50-5.30 GLUCOSE (test code = 1471152245) 114 mg/dL 70-110 H LACTIC ACID (test code = 3876020920) 0.99 mmol/L 0.50-2.20 Lab Interpretation (test code = 09483-6) Abnormal [facility] GLUCOSE (AUTOMATED)2023-04-14 02:37:46* Test Item Value Reference Range Interpretation Comme nts POCT GLU (test code = 2321512053) 119 mg/dL 70-110 H Lab Interpretation (test cod e = 07808-3) Abnormal [facility] GLUCOSE (AUTOMATED)2023-04-14 02:37:46* Test Item Value Reference Range Interpretation Comme nts POCT GLU (test code = 2179237722) 135 mg/dL 70-110 H Lab Interpretation (test cod e = 05077-2) [facility]2023-[facility]-29 22:59:57* Test Item Value Reference Range Interpretation Comme nts MAGNESIUM (test code = 8730507872) 1.8 mg/dL 1.7-2.4 Lab Interpretation (test cod e = 46891-0) Normal [facility] GLUCOSE (AUTOMATED)2023-04-13 22:23:43* Test Item Value Reference Range Interpretation Comme nts POCT GLU (test code = 5674195990) 129 mg/dL 70-110 H Notified Provide r Lab Interpretation (test code = 09917-6) Abnormal [facility] GLUCOSE (AUTOMATED)2023-04-13 17:30:24* Test Item Value Reference Range Interpretation Comme nts POCT GLU (test code = 8082069367) 113 mg/dL 70-110 H Lab Interpretation (test cod e = 38048-3) [facility] 21 + LACTIC [id number] 16:39:56* Test Item Value Reference Range Interpretation Comme nts PH (test code = 1512346330) 7.29 7.32-7.42 L PCO2 CARLOS (test code = 5180807242) 58 See_Comment H [Automated messa ge] The system which generated this result transmitted reference range: 41 - 51 mmHg. The reference range was not used to interpret this result as normal/abnormal. PO2 CARLOS (test code = 1885022124) 42 See_Comment H [Automated messa ge] The system which generated this result transmitted reference range: 25 - 40 mmHg. The reference range was not used to interpret this result as normal/abnormal. HCO3 CARLOS (test code = 2499434122) 27 See_Comment [Automated messa ge] The system which generated this result transmitted reference range: 24 - 28 mEq/L. The reference range was not used to interpret this result as normal/abnormal. AC VBE(BEAKER) (test code = 1833304076) 0.3 mEq/L THB CARLOS (test code = 7363094947) 8.1 g/dL 12.0-16.0 LL %O2HB CARLOS (test code = 8357382899) 73.6 % 52.0-63.0 H %COHB CARLOS (test code = 0092836082) 0.0 % 0.0-1.5 %METHB CARLOS (test code = 4757008385) 0.3 % 0.4-1.5 L VOL%O2 CARLOS (test code = 0292477788) 8.4 % 6.0-12.0 NA (test code = 2420557800) 140 mmol/L 135-145 K+ (test code = 7410107410) 3.7 mmol/L 3.5-5.0 AC CA IONZ (test code = 5565874833) 5.00 mg/dL 4.50-5.30 GLUCOSE (test code = 9593396435) 87 mg/dL 70-110 LACTIC ACID (test code = 5497157822) 0.89 mmol/L 0.50-2.20 Lab Interpretation (test code = 01670-2) [facility]23-[facility]-13 13:42:40* Test Item Value Reference Range Interpretation Comme nts POCT GLU (test code = 9456325469) 105 mg/dL 70-110 Lab Interpretation (test cod e = 04886-1) [facility]2023-[facility]-29 10:42:50* Test Item Value Reference Range Interpretation Comme nts PHOSPHORUS (test code = 2891122362) 2.1 mg/dL 2.5-5.0 L Lab Interpretation (test cod e = 75020-8) [facility]OLIC [facility] (NA, K, CL, CO2, GLUCOSE, BUN, CREATININE, CA)2023-04-13 10:42:50* Test Item Value Reference Range Interpretation Comme nts NA (test code = 6041023634) 143 mmol/L 135-145 K (test code = 6083229410) 3.9 mmol/L 3.5-5.0 CL (test code = 8502918422) 110 mmol/L 98-108 H CO2 TOTAL (test code = 4302101487) 30 mmol/L 23-31 AGAP (test code = 1918034816) 3 2-16 BUN (test code = 5733479753) 26 mg/dL 7-23 H GLUCOSE (test code = 6681338351) 88 mg/dL 70-110 CREATININE (test code = 6790482829) 0.96 mg/dL 0.50-1.04 CALCIUM (test code = 9486593376) 8.9 mg/dL 8.6-10.6 eGFR (test code = 03751-3) 72.7 mL/min/1.73m2 CKD-EPI eGFR (2020). Assuming creatinine has been stable day-to-day for at least three months, the eGFR indicates Category G2 (60 - 89 mL/min/1.73 m2) Lab Interpretation (test code = 21415-3) [facility]2023-[facility]-29 10:42:50* Test Item Value Reference Range Interpretation Comme nts MAGNESIUM (test code = 0323415112) 1.8 mg/dL 1.7-2.4 Lab Interpretation (test cod e = 85334-5) Normal [facility] WITH [id number] 10:11:10* Test Item Value Reference Range Interpretation [...] g/dL 31.6-35.1 L RDW-SD (test code = 53905-4) 52.9 fL 39.0-49.9 H RDW-CV (test code = 788-0) 18.0 % 12.0-15.5 H PLT (test code = 777-3) 374 See_Comment H [Automated message] The system which generated this result transmitted reference range: 166 - 358 10*3/?L. The reference range was not used to interpret this result as normal/abnormal. MPV (test code = 08851-6) 10.5 fL 9.5-12.9 NRBC/100 WBC (test code = 9242142893) 0.4 See_Comment [Automated message] The system which generated this result transmitted reference range: 0.0 - 10.0 /100 WBCs. The reference range was not used to interpret this result as normal/abnormal. NRBC x10^3 (test code = 2931625291) 0.06 See_Comment [Automated message] The system which generated this result transmitted reference range: 10*3/?L. The reference range was not used to interpret this result as normal/abnormal. GRAN MAT (NEUT) % (test code = 770-8) 78.0 % IMM GRAN % (test code = 3212601287) 1.20 % LYMPH % (test code = 736-9) 12.3 % MONO % (test code = 5905-5) 8.0 % EOS % (test code = 713-8) 0.3 % BASO % (test code = 706-2) 0.2 % GRAN MAT x10^3(ANC) (test code = 3182899897) 11.52 10*3/uL 1.88-7.09 H IMM GRAN x10^3 (test code = 5880462615) 0.18 10*3/uL 0.00-0.06 H LYMPH x10^3 (test code = 731-0) 1.82 10*3/uL 1.32-3.29 MONO x10^3 (test code = 742-7) 1.18 10*3/uL 0.33-0.92 H EOS x10^3 (test code = 711-2) 0.05 10*3/uL 0.03-0.39 BASO x10^3 (test code = 704-7) 0.03 10*3/uL 0.01-0.07 Lab Interpretation (test code = 95059-9) [facility] + LACTIC [id number] 10:00:46* Test Item Value Reference Range Interpretation Comme nts PH (test code = 8827279255) 7.31 7.32-7.42 L PCO2 CARLOS (test code = 0460308436) 61 See_Comment H [Automated messa ge] The system which generated this result transmitted reference range: 41 - 51 mmHg. The reference range was not used to interpret this result as normal/abnormal. PO2 CARLOS (test code = 7260292283) 45 See_Comment H [Automated messa ge] The system which generated this result transmitted reference range: 25 - 40 mmHg. The reference range was not used to interpret this result as normal/abnormal. HCO3 CARLOS (test code = 3509361317) 30 See_Comment H [Automated messa ge] The system which generated this result transmitted reference range: 24 - 28 mEq/L. The reference range was not used to interpret this result as normal/abnormal. AC VBE(BEAKER) (test code = 4765074694) 3.2 mEq/L THB CARLOS (test code = 0507454112) 8.1 g/dL 12.0-16.0 LL %O2HB CARLOS (test code = 0646172863) 80.8 % 52.0-63.0 H %COHB CARLOS (test code = 4292949983) 0.2 % 0.0-1.5 %METHB CARLOS (test code = 9683600921) 0.1 % 0.4-1.5 L VOL%O2 CARLOS (test code = 7746384197) 9.2 % 6.0-12.0 NA (test code = 5080307649) 144 mmol/L 135-145 K+ (test code = 2317794809) 3.9 mmol/L 3.5-5.0 AC CA IONZ (test code = 6275677338) 4.90 mg/dL 4.50-5.30 GLUCOSE (test code = 5320450639) 88 mg/dL 70-110 LACTIC ACID (test code = 9773264352) 0.87 mmol/L 0.50-2.20 QUES Lab Interpretation (test code = 09895-4) [facility]23-[facility]-13 09:51:05* Test Item Value Reference Range Interpretation Comme nts POCT GLU (test code = 0455584294) 100 mg/dL 70-110 Lab Interpretation (test cod e = 34130-9) Normal [facility] METABOLIC PANEL (NA, K, CL, CO2, GLUCOSE, BUN, CREATININE, CA)2023-04-13 06:29:57* Test Item Value Reference Range Interpretation Comme nts NA (test code = 7004394124) 142 mmol/L 135-145 K (test code = 8532020091) 4.1 mmol/L 3.5-5.0 CL (test code = 7754709180) 109 mmol/L 98-108 H CO2 TOTAL (test code = 3378262383) 32 mmol/L 23-31 H AGAP (test code = 8456827202) 1 2-16 L BUN (test code = 6722054351) 27 mg/dL 7-23 H GLUCOSE (test code = 9046181243) 93 mg/dL 70-110 CREATININE (test code = 3144258124) 1.00 mg/dL 0.50-1.04 CALCIUM (test code = 6525159768) 8.6 mg/dL 8.6-10.6 eGFR (test code = 46241-7) 69.2 mL/min/1.73m2 CKD-EPI eGFR (2020). Assuming creatinine has been stable day-to-day for at least three months, the eGFR indicates Category G2 (60 - 89 mL/min/1.73 m2) Lab Interpretation (test code = 00340-1) Abnormal [facility] GLUCOSE (AUTOMATED)2023-04-13 05:51:07* Test Item Value Reference Range Interpretation Comme nts POCT GLU (test code = 6833452046) 100 mg/dL 70-110 Lab Interpretation (test cod e = 46751-6) [facility] + LACTIC [id number] 04:25:48* Test Item Value Reference Range Interpretation Comme nts PH (test code = 7365846627) 7.30 7.32-7.42 L PCO2 CARLOS (test code = 1131378711) 63 See_Comment H [Automated messa ge] The system which generated this result transmitted reference range: 41 - 51 mmHg. The reference range was not used to interpret this result as normal/abnormal. PO2 CARLOS (test code = 7235514754) 46 See_Comment H [Automated messa ge] The system which generated this result transmitted reference range: 25 - 40 mmHg. The reference range was not used to interpret this result as normal/abnormal. HCO3 CARLOS (test code = 0269372751) 30 See_Comment H [Automated messa ge] The system which generated this result transmitted reference range: 24 - 28 mEq/L. The reference range was not used to interpret this result as normal/abnormal. AC VBE(BEAKER) (test code = 1129476687) 3.2 mEq/L THB CARLOS (test code = 8253007005) 8.3 g/dL 12.0-16.0 LL %O2HB CARLOS (test code = 8713132553) 81.0 % 52.0-63.0 H %COHB CARLOS (test code = 0590203171) 0.3 % 0.0-1.5 %METHB CARLOS (test code = 0010794281) 0.3 % 0.4-1.5 L VOL%O2 CARLOS (test code = 7021735406) 9.5 % 6.0-12.0 NA (test code = 6584939019) 143 mmol/L 135-145 K+ (test code = 0552056800) 4.1 mmol/L 3.5-5.0 AC CA IONZ (test code = 3645150289) 4.90 mg/dL 4.50-5.30 GLUCOSE (test code = 1888488805) 88 mg/dL 70-110 LACTIC ACID (test code = 3556491070) 0.86 mmol/L 0.50-2.20 Lab Interpretation (test code = 86981-5) Abnormal [facility] METABOLIC PANEL (NA, K, CL, CO2, GLUCOSE, BUN, CREATININE, CA)2023-04-13 02:49:10* Test Item Value Reference Range Interpretation Comme nts NA (test code = 2214335502) 142 mmol/L 135-145 K (test code = 7579056797) 4.1 mmol/L 3.5-5.0 CL (test code = 5222465391) 109 mmol/L 98-108 H CO2 TOTAL (test code = 0576392460) 32 mmol/L 23-31 H AGAP (test code = 6607263397) 1 2-16 L BUN (test code = 0865896750) 27 mg/dL 7-23 H GLUCOSE (test code = 7470077417) 100 mg/dL 70-110 CREATININE (test code = 2313584711) 1.03 mg/dL 0.50-1.04 CALCIUM (test code = 1840086761) 8.6 mg/dL 8.6-10.6 eGFR (test code = 42555-6) 66.8 mL/min/1.73m2 CKD-EPI eGFR (2020). Assuming creatinine has been stable day-to-day for at least three months, the eGFR indicates Category G2 (60 - 89 mL/min/1.73 m2) Lab Interpretation (test code = 07885-3) Abnormal [facility] WITHOUT [id number] 02:32:50* Test Item Value Reference Range Interpretation [...] result as normal/abnormal. MPV (test code = 42285-0) 9.7 fL 9.5-12.9 RDW-CV (test code = 788-0) 18.1 % 12.0-15.5 H RDW-SD (test code = 38946-0) 52.1 fL 39.0-49.9 H NRBC x10^3 (test code = 5033472983) 0.07 See_Comment [Automated [employer]] The system which generated this result transmitted reference range: 10*3/?L. The reference range was not used to interpret this result as normal/abnormal. NRBC/100 WBC (test code = 1129424656) 0.4 See_Comment [Automated [employer]] The system which generated this result transmitted reference range: 0.0 - 10.0 /100 WBCs. The reference range was not used to interpret this result as normal/abnormal. IPF % (test code = 1850796314) Lab Interpretation (test code = 84216-6) [facility]13 02:21:07* Test Item Value Reference Range Interpretation Comme [facility] POCT GLU (test code = 0298727190) 112 mg/dL 70-110 H Lab Interpretation (test cod e = 99433-4) Abnormal [facility] METABOLIC PANEL (NA, K, CL, CO2, GLUCOSE, BUN, CREATININE, CA)2023-04-12 22:25:18* Test Item Value Reference Range Interpretation Comme [facility] NA (test code = 7315032088) 145 mmol/L 135-145 K (test code = 0730303910) 4.4 mmol/L 3.5-5.0 CL (test code = 6472977691) 113 mmol/L 98-108 H CO2 TOTAL (test code = 1743760458) 28 mmol/L 23-31 AGAP (test code = 5850444637) 4 2-16 BUN (test code = 8742632075) 30 mg/dL 7-23 H GLUCOSE (test code = 9262735275) 99 mg/dL 70-110 CREATININE (test code = 2067723110) 1.07 mg/dL 0.50-1.04 H CALCIUM (test code = 7566925018) 8.7 mg/dL 8.6-10.6 eGFR (test code = 61487-7) 63.8 mL/min/1.73m2 CKD-EPI eGFR (2020). Assuming creatinine has been stable day-to-day for at least three months, the eGFR indicates Category G2 (60 - 89 mL/min/1.73 m2) Lab Interpretation (test code = 69910-9) [facility] 22:25:18* Test Item Value Reference Range Interpretation Comme nts MAGNESIUM (test code = 0044916665) 2.1 mg/dL 1.7-2.4 Lab Interpretation (test cod e = 25367-6) [facility]23-[facility]-12 21:45:44* Test Item Value Reference Range Interpretation Comme nts POCT GLU (test code = 4569003681) 108 mg/dL 70-110 Lab Interpretation (test cod e = 95628-2) Normal [facility] HLMQ0970-46-12 21:38:52* Test Item Value Reference Range Interpretation [...] g/dL 31.6-35.1 L RDW-SD (test code = 11273-7) 53.0 fL 39.0-49.9 H RDW-CV (test code = 788-0) 18.1 % 12.0-15.5 H PLT (test code = 777-3) 379 See_Comment H [Automated message] The system which generated this result transmitted reference range: 166 - 358 10*3/?L. The reference range was not used to interpret this result as normal/abnormal. MPV (test code = 26083-3) 10.0 fL 9.5-12.9 NRBC/100 WBC (test code = 8208279064) 0.6 See_Comment [Automated message] The system which generated this result transmitted reference range: 0.0 - 10.0 /100 WBCs. The reference range was not used to interpret this result as normal/abnormal. NRBC x10^3 (test code = 4553266622) 0.10 See_Comment [Automated message] The system which generated this result transmitted reference range: 10*3/?L. The reference range was not used to interpret this result as normal/abnormal. GRAN MAT (NEUT) % (test code = 770-8) 78.8 % IMM GRAN % (test code = 9194394338) 1.40 % LYMPH % (test code = 736-9) 10.8 % MONO % (test code = 5905-5) 8.9 % EOS % (test code = 713-8) 0.0 % BASO % (test code = 706-2) 0.1 % GRAN MAT x10^3(ANC) (test code = 0268382855) 13.33 10*3/uL 1.88-7.09 H IMM GRAN x10^3 (test code = 5579426259) 0.24 10*3/uL 0.00-0.06 H LYMPH x10^3 (test code = 731-0) 1.82 10*3/uL 1.32-3.29 MONO x10^3 (test code = 742-7) 1.51 10*3/uL 0.33-0.92 H EOS x10^3 (test code = 711-2) 0.03-0.39 L BASO x10^3 (test code = 704-7) 0.01-0.07 POLYCHROMASIA (test code = 67661-1) 2+ See_Comment [Automated message] The system which generated this result transmitted reference range: 2+. The reference range was not used to interpret this result as normal/abnormal. Lab Interpretation (test code = 89679-3) [facility] 20 + Lactic Zsoq2501-30-76 20:56:11* Test Item Value Reference Range Interpretation Comme nts PH (test code = 2) 7.22 7.35-7.45 L PCO2 (test code = 8428084750) 63 See_Comment H [Automated messa ge] The system which generated this result transmitted reference range: 35 - 45 mmHg. The reference range was not used to interpret this result as normal/abnormal. PO2 (test code = 5328273790) 150 See_Comment H [Automated messa ge] The system which generated this result transmitted reference range: 80 - 100 mmHg. The reference range was not used to interpret this result as normal/abnormal. HCO3 (test code = 8354665552) 25 See_Comment [Automated messa ge] The system which generated this result transmitted reference range: 22 - 26 mEq/L. The reference range was not used to interpret this result as normal/abnormal. BE (test code = 5470688264) -2.9 See_Comment [Automated messa ge] The system which generated this result transmitted reference range: -3.0 - 3.0 mEq/L. The reference range was not used to interpret this result as normal/abnormal. THB (test code = 5687591104) 8.4 g/dL 12.0-16.0 L %O2HB (test code = 1572522579) 98.2 % 94.0-99.0 %COHB ART (test code = 3466668234) 0.5 % 0.0-1.5 %METHB ART (test code = 5486772174) 0.3 % 0.4-1.5 L VOL%O2 ART (test code = 9059770099) 11.9 % 15.0-23.0 L NA (test code = 0086053900) 142 mmol/L 135-145 K+ (test code = 0599154680) 4.5 mmol/L 3.5-5.0 AC CA IONZ (test code = 6275866722) 5.10 mg/dL 4.50-5.30 GLUCOSE (test code = 5280869556) 94 mg/dL 70-110 LACTIC ACID (test code = 2611776136) 1.02 mmol/L 0.50-2.20 Lab Interpretation (test code = 66697-7) Abnormal [facility] METABOLIC PANEL (NA, K, CL, CO2, GLUCOSE, BUN, CREATININE, CA)2023-04-12 18:51:57* Test Item Value Reference Range Interpretation Comme [facility] NA (test code = 3372182618) 144 mmol/L 135-145 K (test code = 4854581848) 4.8 mmol/L 3.5-5.0 CL (test code = 2293002299) 115 mmol/L 98-108 H CO2 TOTAL (test code = 1836700068) 26 mmol/L 23-31 AGAP (test code = 2463281542) 3 2-16 BUN (test code = 6069334033) 30 mg/dL 7-23 H GLUCOSE (test code = 1356835043) 92 mg/dL 70-110 CREATININE (test code = 7723782180) 1.11 mg/dL 0.50-1.04 H CALCIUM (test code = 0737761208) 8.4 mg/dL 8.6-10.6 L eGFR (test code = 17116-3) 61.1 mL/min/1.73m2 CKD-EPI eGFR (2020). Assuming creatinine has been stable day-to-day for at least three months, the eGFR indicates Category G2 (60 - 89 mL/min/1.73 m2) Lab Interpretation (test code = 66557-6) [facility]2023-04-12 17:39:26* Test Item Value Reference Range Interpretation Comme [facility] POCT GLU (test code = 7862292902) 94 mg/dL 70-110 Lab Interpretation (test cod e = 08251-1) Normal [facility] AntonioSputum Tadtiua2891-37-08 16:49:19* Test Item Value Reference Range Interpretation Comme [facility] SPUTUM CULTURE (test code = 622-1) 1+ Respiratory guillermina: Commensal upper respiratory microorganisms only. Gram stain (test code = 664-3) No Epithelial cells CECIL (test code = CECIL) Bacterial pathogens associated with lower respiratory infections were not identified, which include Pseudomonas aeruginosa and Staphylococcus aureus (MRSA or MSSA). [facility] WITH OFXS3399-65-72 14:12:57* Test Item Value Reference Range Interpretation [...] g/dL 31.6-35.1 L RDW-SD (test code = 00182-6) 53.6 fL 39.0-49.9 H RDW-CV (test code = 788-0) 18.5 % 12.0-15.5 H PLT (test code = 777-3) 380 See_Comment H [Automated message] The system which generated this result transmitted reference range: 166 - 358 10*3/?L. The reference range was not used to interpret this result as normal/abnormal. MPV (test code = 68170-0) 9.9 fL 9.5-12.9 NRBC/100 WBC (test code = 4767443218) 0.6 See_Comment [Automated message] The system which generated this result transmitted reference range: 0.0 - 10.0 /100 WBCs. The reference range was not used to interpret this result as normal/abnormal. NRBC x10^3 (test code = 5362039701) 0.08 See_Comment [Automated message] The system which generated this result transmitted reference range: 10*3/?L. The reference range was not used to interpret this result as normal/abnormal. GRAN MAT (NEUT) % (test code = 770-8) 77.2 % IMM GRAN % (test code = 3756205044) 1.60 % LYMPH % (test code = 736-9) 11.1 % MONO % (test code = 5905-5) 10.0 % EOS % (test code = 713-8) 0.0 % BASO % (test code = 706-2) 0.1 % GRAN MAT x10^3(ANC) (test code = 5019637648) 11.23 10*3/uL 1.88-7.09 H IMM GRAN x10^3 (test code = 0955680902) 0.23 10*3/uL 0.00-0.06 H LYMPH x10^3 (test code = 731-0) 1.62 10*3/uL 1.32-3.29 MONO x10^3 (test code = 742-7) 1.45 10*3/uL 0.33-0.92 H EOS x10^3 (test code = 711-2) 0.03-0.39 L BASO x10^3 (test code = 704-7) 0.01-0.07 Lab Interpretation (test code = 40657-1) [facility]2023-[facility]-28 13:53:56* Test Item Value Reference Range Interpretation Comme nts MAGNESIUM (test code = 9056417635) 2.4 mg/dL 1.7-2.4 Lab Interpretation (test cod e = 96751-8) Normal [facility] METABOLIC PANEL (NA, K, CL, CO2, GLUCOSE, BUN, CREATININE, CA)2023-04-12 13:53:56* Test Item Value Reference Range Interpretation Comme nts NA (test code = 1323323800) 141 mmol/L 135-145 K (test code = 4506878216) 4.9 mmol/L 3.5-5.0 CL (test code = 2163848683) 112 mmol/L 98-108 H CO2 TOTAL (test code = 3670397587) 24 mmol/L 23-31 AGAP (test code = 8020614494) 5 2-16 BUN (test code = 0724981835) 28 mg/dL 7-23 H GLUCOSE (test code = 8488674945) 107 mg/dL 70-110 CREATININE (test code = 3196173837) 1.01 mg/dL 0.50-1.04 CALCIUM (test code = 8812125816) 8.4 mg/dL 8.6-10.6 L eGFR (test code = 71045-7) 68.4 mL/min/1.73m2 CKD-EPI eGFR (2020). Assuming creatinine has been stable day-to-day for at least three months, the eGFR indicates Category G2 (60 - 89 mL/min/1.73 m2) Lab Interpretation (test code = 28202-9) [facility]2023-04-12 13:35:00* Test Item Value Reference Range Interpretation Comme [facility] POCT GLU (test code = 9157796982) 115 mg/dL 70-110 H Lab Interpretation (test cod e = 37673-9) [facility] Antonio[facility] Packed RBC (in units), 1 Units 2023-04-12 13:28:16* Test Item Value Reference Range Interpretation Comme [facility] Cross Match Result (test code = 4409) Compatible ISBT Blood Type Code (test code = 665184) 6200 Unit Blood Type (test code = 4410) A Pos Unit Number (test code = 4411) [id number] Blood Expiration Date & Time (test code = 598010) [id number] Status Information (test code = 4412) Issued Product Identification (test code = 4413) Red Blood Cells Product Code (test code = 4414) [id number] Performed at [facility] B Laboratory Services - [facility] Blood [address] [place] [id number] Free: [phone] No. [id number] [facility] 20 + Lactic Nflc6953-71-76 09:58:46* Test Item Value Reference Range Interpretation Comme nts PH (test code = 2) 7.27 7.35-7.45 L PCO2 (test code = 8587643541) 57 See_Comment H [Automated messa ge] The system which generated this result transmitted reference range: 35 - 45 mmHg. The reference range was not used to interpret this result as normal/abnormal. PO2 (test code = 4694995888) 100 See_Comment [Automated messa ge] The system which generated this result transmitted reference range: 80 - 100 mmHg. The reference range was not used to interpret this result as normal/abnormal. HCO3 (test code = 8005479383) 26 See_Comment [Automated messa ge] The system which generated this result transmitted reference range: 22 - 26 mEq/L. The reference range was not used to interpret this result as normal/abnormal. BE (test code = 9159365789) -2.3 See_Comment [Automated messa ge] The system which generated this result transmitted reference range: -3.0 - 3.0 mEq/L. The reference range was not used to interpret this result as normal/abnormal. THB (test code = 0751082168) 13.9 g/dL 12.0-16.0 %O2HB (test code = 1160275958) 96.5 % 94.0-99.0 %COHB ART (test code = 5074675783) 0.9 % 0.0-1.5 %METHB ART (test code = 2186434166) 0.0 % 0.4-1.5 L VOL%O2 ART (test code = 1795685357) 19.0 % 15.0-23.0 NA (test code = 6562218344) 142 mmol/L 135-145 K+ (test code = 1699382134) 4.9 mmol/L 3.5-5.0 AC CA IONZ (test code = 4597157886) 5.10 mg/dL 4.50-5.30 GLUCOSE (test code = 9635851889) 102 mg/dL 70-110 LACTIC ACID (test code = 7106642560) 1.54 mmol/L 0.50-2.20 Lab Interpretation (test code = 53330-0) [facility]normal [facility]2023-04-12 09:42:48* Test Item Value Reference Range Interpretation Comme nts POCT GLU (test code = 0765488176) 127 mg/dL 70-110 H Lab Interpretation (test cod e = 63954-3) [facility]normal [facility]2023-[facility]-28 07:01:35* Test Item Value Reference Range Interpretation Comme nts PHOSPHORUS (test code = 6669835942) 3.5 mg/dL 2.5-5.0 Lab Interpretation (test cod e = 14496-6) Normal [facility] METABOLIC PANEL (NA, K, CL, CO2, GLUCOSE, BUN, CREATININE, CA)2023-04-12 07:01:34* Test Item Value Reference Range Interpretation Comme nts NA (test code = 5769401454) 139 mmol/L 135-145 K (test code = 1636728882) 5.0 mmol/L 3.5-5.0 CL (test code = 1342342581) 112 mmol/L 98-108 H CO2 TOTAL (test code = 6268162843) 25 mmol/L 23-31 AGAP (test code = 1093646688) 2 2-16 BUN (test code = 1139799632) 24 mg/dL 7-23 H GLUCOSE (test code = 3348762309) 128 mg/dL 70-110 H CREATININE (test code = 3480653784) 0.99 mg/dL 0.50-1.04 CALCIUM (test code = 2367056895) 8.3 mg/dL 8.6-10.6 L eGFR (test code = 06180-7) 70.0 mL/min/1.73m2 CKD-EPI eGFR (2020). Assuming creatinine has been stable day-to-day for at least three months, the eGFR indicates Category G2 (60 - 89 mL/min/1.73 m2) Lab Interpretation (test code = 78180-7) [facility]normal [facility]2023-[facility]-28 07:01:34* Test Item Value Reference Range Interpretation Comme nts MAGNESIUM (test code = 4696731285) 2.4 mg/dL 1.7-2.4 Lab Interpretation (test cod e = 72935-6) Normal [facility] GLUCOSE (AUTOMATED)2023-04-12 06:23:35* Test Item Value Reference Range Interpretation Comme nts POCT GLU (test code = 0099811084) 150 mg/dL 70-110 H Lab Interpretation (test cod e = 82702-8) Abnormal [facility] GLUCOSE (AUTOMATED)2023-04-12 02:29:43* Test Item Value Reference Range Interpretation Comme nts POCT GLU (test code = 3273294596) 133 mg/dL 70-110 H Lab Interpretation (test cod e = 15420-5) [facility]normal [facility] Panel 20 + Lactic Fcam1969-78-10 01:39:21* Test Item Value Reference Range Interpretation Comme nts PH (test code = 2) 7.27 7.35-7.45 L PCO2 (test code = 7880326672) 49 See_Comment H [Automated messa ge] The system which generated this result transmitted reference range: 35 - 45 mmHg. The reference range was not used to interpret this result as normal/abnormal. PO2 (test code = 2374510994) 87 See_Comment [Automated messa ge] The system which generated this result transmitted reference range: 80 - 100 mmHg. The reference range was not used to interpret this result as normal/abnormal. HCO3 (test code = 6590506350) 22 See_Comment [Automated messa ge] The system which generated this result transmitted reference range: 22 - 26 mEq/L. The reference range was not used to interpret this result as normal/abnormal. BE (test code = 9360299568) -4.6 See_Comment L [Automated messa ge] The system which generated this result transmitted reference range: -3.0 - 3.0 mEq/L. The reference range was not used to interpret this result as normal/abnormal. THB (test code = 2233022396) 8.8 g/dL 12.0-16.0 L %O2HB (test code = 4410992722) 95.1 % 94.0-99.0 %COHB ART (test code = 0017378992) 0.3 % 0.0-1.5 %METHB ART (test code = 6814943463) 0.1 % 0.4-1.5 L VOL%O2 ART (test code = 2128238580) 11.9 % 15.0-23.0 L NA (test code = 3727076114) 139 mmol/L 135-145 K+ (test code = 4052589075) 4.8 mmol/L 3.5-5.0 AC CA IONZ (test code = 9844403819) 4.80 mg/dL 4.50-5.30 GLUCOSE (test code = 0763104413) 113 mg/dL 70-110 H LACTIC ACID (test code = 5058390835) 0.98 mmol/L 0.50-2.20 Lab Interpretation (test code = 46687-4) [facility]normal [facility] AntonioIRON [id number] 01:25:33* Test Item Value Reference Range Interpretation Comme nts IRON (test code = 0789112736) 18 ug/dL 50-160 L TIBC (test code = 0449153541) 412 ug/dL 250-410 H % FE SAT (test code = 4111398756) 4 % 20-50 L Lab Interpretation (test cod e = 75500-2) Abnormal [facility] METABOLIC PANEL (NA, K, CL, CO2, GLUCOSE, BUN, CREATININE, CA)2023-04-12 01:15:56* Test Item Value Reference Range Interpretation Comme nts NA (test code = 5648838170) 141 mmol/L 135-145 K (test code = 0959920229) 5.2 mmol/L 3.5-5.0 H CL (test code = 2468236128) 112 mmol/L 98-108 H CO2 TOTAL (test code = 1782542887) 24 mmol/L 23-31 AGAP (test code = 8730727221) 5 2-16 BUN (test code = 8186962024) 20 mg/dL 7-23 GLUCOSE (test code = 5514361716) 121 mg/dL 70-110 H CREATININE (test code = 9717022647) 1.03 mg/dL 0.50-1.04 CALCIUM (test code = 2041901392) 8.5 mg/dL 8.6-10.6 L eGFR (test code = 07672-3) 66.8 mL/min/1.73m2 CKD-EPI eGFR (2020). Assuming creatinine has been stable day-to-day for at least three months, the eGFR indicates Category G2 (60 - 89 mL/min/1.73 m2) Lab Interpretation (test code = 76898-9) [facility]2023-[facility]-28 01:15:56* Test Item Value Reference Range Interpretation Comme nts PHOSPHORUS (test code = 4559026615) 3.4 mg/dL 2.5-5.0 Lab Interpretation (test cod e = 27678-1) Normal [facility]2023-[facility]-28 01:15:56* Test Item Value Reference Range Interpretation Comme nts MAGNESIUM (test code = 8970249555) 2.4 mg/dL 1.7-2.4 Lab Interpretation (test cod e = 80399-1) Normal [facility] GLUCOSE (AUTOMATED)2023-04-11 23:56:40* Test Item Value Reference Range Interpretation Comme nts POCT GLU (test code = 4704354512) 166 mg/dL 70-110 H Lab Interpretation (test cod e = 15770-8) Abnormal [facility] GLUCOSE (AUTOMATED)2023-04-11 23:00:43* Test Item Value Reference Range Interpretation Comme nts POCT GLU (test code = 5004724743) 113 mg/dL 70-110 H Lab Interpretation (test cod e = 94845-4) [facility] (NA, K, CL, CO2, GLUCOSE, BUN, CREATININE, CA)2023-04-11 22:12:54* Test Item Value Reference Range Interpretation Comme nts NA (test code = 2608662874) 140 mmol/L 135-145 K (test code = 1424860632) 5.6 mmol/L 3.5-5.0 H CL (test code = 6363244660) 114 mmol/L 98-108 H CO2 TOTAL (test code = 7687786961) 26 mmol/L 23-31 AGAP (test code = 0189333299) 2-16 L BUN (test code = 8336492935) 20 mg/dL 7-23 GLUCOSE (test code = 7235686896) 96 mg/dL 70-110 CREATININE (test code = 0761266738) 1.01 mg/dL 0.50-1.04 CALCIUM (test code = 3197694236) 8.0 mg/dL 8.6-10.6 L eGFR (test code = 73443-4) 68.4 mL/min/1.73m2 CKD-EPI eGFR (2020). Assuming creatinine has been stable day-to-day for at least three months, the eGFR indicates Category G2 (60 - 89 mL/min/1.73 m2) Lab Interpretation (test code = 15641-0) [facility]2023-[facility]-27 22:07:48* Test Item Value Reference Range Interpretation Comme nts PHOSPHORUS (test code = 9126414288) 4.0 mg/dL 2.5-5.0 Lab Interpretation (test cod e = 30884-8) Normal [facility]2023-[facility]-27 22:07:48* Test Item Value Reference Range Interpretation Comme nts MAGNESIUM (test code = 6378932984) 2.6 mg/dL 1.7-2.4 H Lab Interpretation (test cod e = 65055-5) [facility]normal [facility] 20 + Lactic Vyvd1090-77-34 21:23:42* Test Item Value Reference Range Interpretation Comme nts PH (test code = 2) 7.18 7.35-7.45 LL PCO2 (test code = 5622324684) 64 See_Comment H [Automated messa ge] The system which generated this result transmitted reference range: 35 - 45 mmHg. The reference range was not used to interpret this result as normal/abnormal. PO2 (test code = 9801376828) 112 See_Comment H [Automated messa ge] The system which generated this result transmitted reference range: 80 - 100 mmHg. The reference range was not used to interpret this result as normal/abnormal. HCO3 (test code = 9782969815) 23 See_Comment [Automated messa ge] The system which generated this result transmitted reference range: 22 - 26 mEq/L. The reference range was not used to interpret this result as normal/abnormal. BE (test code = 1301782376) -5.0 See_Comment L [Automated messa ge] The system which generated this result transmitted reference range: -3.0 - 3.0 mEq/L. The reference range was not used to interpret this result as normal/abnormal. THB (test code = 8641791793) 8.1 g/dL 12.0-16.0 LL %O2HB (test code = 6947706713) 97.2 % 94.0-99.0 %COHB ART (test code = 7165580208) 0.3 % 0.0-1.5 %METHB ART (test code = 7683043327) 0.1 % 0.4-1.5 L VOL%O2 ART (test code = 1121854762) 11.3 % 15.0-23.0 L NA (test code = 3378432193) 139 mmol/L 135-145 K+ (test code = 2767473615) 5.5 mmol/L 3.5-5.0 H AC CA IONZ (test code = 5836119007) 4.90 mg/dL 4.50-5.30 GLUCOSE (test code = 3511908628) 88 mg/dL 70-110 LACTIC ACID (test code = 1391350850) 0.72 mmol/L 0.50-2.20 Lab Interpretation (test code = 44611-6) [facility] (NA, K, CL, CO2, GLUCOSE, BUN, CREATININE, CA)2023-04-11 18:11:15* Test Item Value Reference Range Interpretation Comme nts NA (test code = 0487191895) 140 mmol/L 135-145 K (test code = 8706678677) 4.9 mmol/L 3.5-5.0 CL (test code = 8288802386) 115 mmol/L 98-108 H CO2 TOTAL (test code = 8932464264) 23 mmol/L 23-31 AGAP (test code = 9014603613) 2 2-16 BUN (test code = 5045673173) 20 mg/dL 7-23 GLUCOSE (test code = 0827705347) 108 mg/dL 70-110 CREATININE (test code = 9560218179) 0.96 mg/dL 0.50-1.04 CALCIUM (test code = 5601878760) 8.0 mg/dL 8.6-10.6 L eGFR (test code = 07160-5) 72.7 mL/min/1.73m2 CKD-EPI eGFR (2020). Assuming creatinine has been stable day-to-day for at least three months, the eGFR indicates Category G2 (60 - 89 mL/min/1.73 m2) Lab Interpretation (test code = 29101-8) [facility]2023-[facility] 18:11:15* Test Item Value Reference Range Interpretation Comme nts PHOSPHORUS (test code = 4059649184) 3.6 mg/dL 2.5-5.0 Lab Interpretation (test cod e = 27716-9) [facility]20[facility] 18:11:15* Test Item Value Reference Range Interpretation Comme nts MAGNESIUM (test code = 5652979876) 2.7 mg/dL 1.7-2.4 H Lab Interpretation (test cod e = 62524-9) [facility] 20 + Lactic Sfed0261-14-80 18:10:54* Test Item Value Reference Range Interpretation Comme nts PH (test code = 2) 7.18 7.35-7.45 LL PCO2 (test code = 8242250707) 62 See_Comment H [Automated messa ge] The system which generated this result transmitted reference range: 35 - 45 mmHg. The reference range was not used to interpret this result as normal/abnormal. PO2 (test code = 8341161426) 106 See_Comment H [Automated messa ge] The system which generated this result transmitted reference range: 80 - 100 mmHg. The reference range was not used to interpret this result as normal/abnormal. HCO3 (test code = 7408242194) 23 See_Comment [Automated messa ge] The system which generated this result transmitted reference range: 22 - 26 mEq/L. The reference range was not used to interpret this result as normal/abnormal. BE (test code = 9960158268) -5.8 See_Comment L [Automated messa ge] The system which generated this result transmitted reference range: -3.0 - 3.0 mEq/L. The reference range was not used to interpret this result as normal/abnormal. THB (test code = 9634678346) 8.1 g/dL 12.0-16.0 LL %O2HB (test code = 6064570118) 96.5 % 94.0-99.0 %COHB ART (test code = 3292876128) 0.4 % 0.0-1.5 %METHB ART (test code = 4721654608) 0.1 % 0.4-1.5 L VOL%O2 ART (test code = 0415070572) 11.2 % 15.0-23.0 L NA (test code = 5546132811) 139 mmol/L 135-145 K+ (test code = 7330305029) 4.7 mmol/L 3.5-5.0 AC CA IONZ (test code = 8531596052) 4.90 mg/dL 4.50-5.30 GLUCOSE (test code = 2015559666) 100 mg/dL 70-110 LACTIC ACID (test code = 1331408487) 1.00 mmol/L 0.50-2.20 Lab Interpretation (test code = 03451-9) [facility] (NA, K, CL, CO2, GLUCOSE, BUN, CREATININE, CA)2023-04-11 14:52:22* Test Item Value Reference Range Interpretation Comme nts NA (test code = 3301236235) 140 mmol/L 135-145 K (test code = 5152148526) 4.7 mmol/L 3.5-5.0 CL (test code = 7246427315) 113 mmol/L 98-108 H CO2 TOTAL (test code = 3552431320) 21 mmol/L 23-31 L AGAP (test code = 6415517611) 6 2-16 BUN (test code = 4263207898) 18 mg/dL 7-23 GLUCOSE (test code = 1074415300) 135 mg/dL 70-110 H CREATININE (test code = 8618390134) 1.02 mg/dL 0.50-1.04 CALCIUM (test code = 4537868050) 7.8 mg/dL 8.6-10.6 L eGFR (test code = 62504-4) 67.6 mL/min/1.73m2 CKD-EPI eGFR (2020). Assuming creatinine has been stable day-to-day for at least three months, the eGFR indicates Category G2 (60 - 89 mL/min/1.73 m2) Lab Interpretation (test code = 92429-4) [facility]:22* Test Item Value Reference Range Interpretation Comme nts PHOSPHORUS (test code = 7749040226) 3.2 mg/dL 2.5-5.0 Lab Interpretation (test cod e = 32673-8) [facility] 14:52:22* Test Item Value Reference Range Interpretation Comme nts MAGNESIUM (test code = 2057882905) 2.7 mg/dL 1.7-2.4 H Lab Interpretation (test cod e = 69350-1) [facility] + Lactic [id number] 14:49:51* Test Item Value Reference Range Interpretation Comme nts PH (test code = 2) 7.29 7.35-7.45 L PCO2 (test code = 7154728441) 47 See_Comment H [Automated messa ge] The system which generated this result transmitted reference range: 35 - 45 mmHg. The reference range was not used to interpret this result as normal/abnormal. PO2 (test code = 9211402822) 111 See_Comment H [Automated messa ge] The system which generated this result transmitted reference range: 80 - 100 mmHg. The reference range was not used to interpret this result as normal/abnormal. HCO3 (test code = 5702136329) 22 See_Comment [Automated messa ge] The system which generated this result transmitted reference range: 22 - 26 mEq/L. The reference range was not used to interpret this result as normal/abnormal. BE (test code = 7094665384) -4.4 See_Comment L [Automated messa ge] The system which generated this result transmitted reference range: -3.0 - 3.0 mEq/L. The reference range was not used to interpret this result as normal/abnormal. THB (test code = 2378093618) 7.8 g/dL 12.0-16.0 LL %O2HB (test code = 2344677259) 97.4 % 94.0-99.0 %COHB ART (test code = 0481983519) 0.7 % 0.0-1.5 %METHB ART (test code = 2264752586) 0.0 % 0.4-1.5 L VOL%O2 ART (test code = 1652700675) 10.9 % 15.0-23.0 L NA (test code = 9892849221) 139 mmol/L 135-145 K+ (test code = 9348960880) 4.6 mmol/L 3.5-5.0 AC CA IONZ (test code = 9500908240) 4.70 mg/dL 4.50-5.30 GLUCOSE (test code = 0576499128) 131 mg/dL 70-110 H LACTIC ACID (test code = 6890720950) 1.95 mmol/L 0.50-2.20 Lab Interpretation (test code = 59122-9) [facility] + Lactic Yumh5160-45-88 11:03:58* Test Item Value Reference Range Interpretation Comme nts PH (test code = 2) 7.19 7.35-7.45 LL PCO2 (test code = 8237709140) 55 See_Comment H [Automated messa ge] The system which generated this result transmitted reference range: 35 - 45 mmHg. The reference range was not used to interpret this result as normal/abnormal. PO2 (test code = 9121564734) 122 See_Comment H [Automated messa ge] The system which generated this result transmitted reference range: 80 - 100 mmHg. The reference range was not used to interpret this result as normal/abnormal. HCO3 (test code = 1465634180) 20 See_Comment L [Automated messa ge] The system which generated this result transmitted reference range: 22 - 26 mEq/L. The reference range was not used to interpret this result as normal/abnormal. BE (test code = 9844254791) -7.6 See_Comment L [Automated messa ge] The system which generated this result transmitted reference range: -3.0 - 3.0 mEq/L. The reference range was not used to interpret this result as normal/abnormal. THB (test code = 3597724566) 8.2 g/dL 12.0-16.0 LL %O2HB (test code = 7528664927) 97.8 % 94.0-99.0 %COHB ART (test code = 3306235689) 0.2 % 0.0-1.5 %METHB ART (test code = 6865845272) 0.3 % 0.4-1.5 L VOL%O2 ART (test code = 6129054638) 11.5 % 15.0-23.0 L NA (test code = 9006320600) 138 mmol/L 135-145 K+ (test code = 0573481637) 4.9 mmol/L 3.5-5.0 AC CA IONZ (test code = 4714277227) 4.60 mg/dL 4.50-5.30 GLUCOSE (test code = 6739199963) 141 mg/dL 70-110 H LACTIC ACID (test code = 8224446152) 2.62 mmol/L 0.50-2.20 H Lab Interpretation (test code = 40631-9) [facility] + Lactic Tvwy9214-84-01 11:03:48* Test Item Value Reference Range Interpretation Comme nts PH (test code = 2) 7.22 7.35-7.45 L PCO2 (test code = 1753108833) 45 See_Comment [Automated messa ge] The system which generated this result transmitted reference range: 35 - 45 mmHg. The reference range was not used to interpret this result as normal/abnormal. PO2 (test code = 7738614845) 147 See_Comment H [Automated messa ge] The system which generated this result transmitted reference range: 80 - 100 mmHg. The reference range was not used to interpret this result as normal/abnormal. HCO3 (test code = 3988951761) 18 See_Comment L [Automated messa ge] The system which generated this result transmitted reference range: 22 - 26 mEq/L. The reference range was not used to interpret this result as normal/abnormal. BE (test code = 1621968734) -9.0 See_Comment L [Automated messa ge] The system which generated this result transmitted reference range: -3.0 - 3.0 mEq/L. The reference range was not used to interpret this result as normal/abnormal. THB (test code = 6230732920) 8.0 g/dL 12.0-16.0 LL %O2HB (test code = 1677825097) 98.4 % 94.0-99.0 %COHB ART (test code = 3935630749) 0.1 % 0.0-1.5 %METHB ART (test code = 3452584237) 0.3 % 0.4-1.5 L VOL%O2 ART (test code = 7042177373) 11.4 % 15.0-23.0 L NA (test code = 8447959204) 138 mmol/L 135-145 K+ (test code = 2727875047) 4.7 mmol/L 3.5-5.0 AC CA IONZ (test code = 7193580752) 4.60 mg/dL 4.50-5.30 GLUCOSE (test code = 6176212194) 165 mg/dL 70-110 H LACTIC ACID (test code = 1508182341) 2.94 mmol/L 0.50-2.20 H Lab Interpretation (test code = 46606-2) Abnormal [facility] GLUCOSE (AUTOMATED)2023-04-11 09:38:33* Test Item Value Reference Range Interpretation Comme nts POCT GLU (test code = 0846411083) 201 mg/dL 70-110 H Lab Interpretation (test cod e = 94918-9) Abnormal [facility] GLUCOSE (AUTOMATED)2023-04-11 09:38:33* Test Item Value Reference Range Interpretation Comme [facility] POCT GLU (test code = 6988960556) 198 mg/dL 70-110 H Lab Interpretation (test cod e = 83805-2) [facility] + Lactic Cqay9751-91-30 06:34:26* Test Item Value Reference Range Interpretation Comme nts PH (test code = 2) 7.21 7.35-7.45 L PCO2 (test code = 0739236576) 51 See_Comment H [Automated messa ge] The system which generated this result transmitted reference range: 35 - 45 mmHg. The reference range was not used to interpret this result as normal/abnormal. PO2 (test code = 2706202342) 152 See_Comment H [Automated messa ge] The system which generated this result transmitted reference range: 80 - 100 mmHg. The reference range was not used to interpret this result as normal/abnormal. HCO3 (test code = 0386029207) 20 See_Comment L [Automated messa ge] The system which generated this result transmitted reference range: 22 - 26 mEq/L. The reference range was not used to interpret this result as normal/abnormal. BE (test code = 9459538795) -7.5 See_Comment L [Automated messa ge] The system which generated this result transmitted reference range: -3.0 - 3.0 mEq/L. The reference range was not used to interpret this result as normal/abnormal. THB (test code = 6465789751) 7.9 g/dL 12.0-16.0 LL %O2HB (test code = 1772818110) 98.1 % 94.0-99.0 %COHB ART (test code = 5971067151) 0.4 % 0.0-1.5 %METHB ART (test code = 9803216322) 0.3 % 0.4-1.5 L VOL%O2 ART (test code = 9393703167) 11.2 % 15.0-23.0 L NA (test code = 8854688539) 138 mmol/L 135-145 K+ (test code = 8525080348) 4.8 mmol/L 3.5-5.0 AC CA IONZ (test code = 9656493986) 4.60 mg/dL 4.50-5.30 GLUCOSE (test code = 4080362419) 156 mg/dL 70-110 H LACTIC ACID (test code = 4560662440) 3.36 mmol/L 0.50-2.20 H Lab Interpretation (test code = 31446-5) [facility]-11 05:14:38* Test Item Value Reference Range Interpretation Comme [facility] POCT GLU (test code = 2186830802) 133 mg/dL 70-110 H Lab Interpretation (test cod e = 90432-7) [facility] + Lactic Fnyx2379-93-15 05:06:51* Test Item Value Reference Range Interpretation Comme [facility] PH (test code = 2) 7.18 7.35-7.45 LL PCO2 (test code = 6824322054) 55 See_Comment H [Automated messa ge] The system which generated this result transmitted reference range: 35 - 45 mmHg. The reference range was not used to interpret this result as normal/abnormal. PO2 (test code = 4470986472) 120 See_Comment H [Automated messa ge] The system which generated this result transmitted reference range: 80 - 100 mmHg. The reference range was not used to interpret this result as normal/abnormal. HCO3 (test code = 6896598790) 20 See_Comment L [Automated messa ge] The system which generated this result transmitted reference range: 22 - 26 mEq/L. The reference range was not used to interpret this result as normal/abnormal. BE (test code = 2892195151) -8.0 See_Comment L [Automated messa ge] The system which generated this result transmitted reference range: -3.0 - 3.0 mEq/L. The reference range was not used to interpret this result as normal/abnormal. THB (test code = 3571174721) 8.3 g/dL 12.0-16.0 LL %O2HB (test code = 5469260845) 97.5 % 94.0-99.0 %COHB ART (test code = 2537035536) 0.2 % 0.0-1.5 %METHB ART (test code = 9794299177) 0.3 % 0.4-1.5 L VOL%O2 ART (test code = 4019122654) 11.6 % 15.0-23.0 L NA (test code = 9504591383) 138 mmol/L 135-145 K+ (test code = 7072373892) 4.8 mmol/L 3.5-5.0 AC CA IONZ (test code = 3915817318) 4.70 mg/dL 4.50-5.30 GLUCOSE (test code = 5091268371) 145 mg/dL 70-110 H LACTIC ACID (test code = 4702509963) 2.73 mmol/L 0.50-2.20 H Lab Interpretation (test code = 87681-8) Abnormal [facility] METABOLIC PANEL (NA, K, CL, CO2, GLUCOSE, BUN, CREATININE, CA)2023-04-11 03:17:26* Test Item Value Reference Range Interpretation Comme nts NA (test code = 9312811771) 141 mmol/L 135-145 K (test code = 3051896766) 4.9 mmol/L 3.5-5.0 CL (test code = 1707564350) 111 mmol/L 98-108 H CO2 TOTAL (test code = 6442269698) 20 mmol/L 23-31 L AGAP (test code = 4468253294) 10 2-16 BUN (test code = 0882228783) 18 mg/dL 7-23 GLUCOSE (test code = 6306475680) 137 mg/dL 70-110 H CREATININE (test code = 7462066708) 1.29 mg/dL 0.50-1.04 H CALCIUM (test code = 3574118216) 7.7 mg/dL 8.6-10.6 L eGFR (test code = 67297-0) 51.0 mL/min/1.73m2 CKD-EPI eGFR (2020). Assuming creatinine has been stable day-to-day for at least three months, the eGFR indicates Category G3a (45 - 59 mL/min/1.73 m2) Lab Interpretation (test code = 77913-1) [facility] + Lactic Cbnd3649-07-64 03:01:58* Test Item Value Reference Range Interpretation Comme nts PH (test code = 2) 7.12 7.35-7.45 LL PCO2 (test code = 8161456265) 70 See_Comment H [Automated messa ge] The system which generated this result transmitted reference range: 35 - 45 mmHg. The reference range was not used to interpret this result as normal/abnormal. PO2 (test code = 8579797507) 96 See_Comment [Automated messa ge] The system which generated this result transmitted reference range: 80 - 100 mmHg. The reference range was not used to interpret this result as normal/abnormal. HCO3 (test code = 3018297723) 22 See_Comment [Automated messa ge] The system which generated this result transmitted reference range: 22 - 26 mEq/L. The reference range was not used to interpret this result as normal/abnormal. BE (test code = 1696048349) -7.5 See_Comment L [Automated messa ge] The system which generated this result transmitted reference range: -3.0 - 3.0 mEq/L. The reference range was not used to interpret this result as normal/abnormal. THB (test code = 0074623356) 8.7 g/dL 12.0-16.0 L %O2HB (test code = 8518144488) 95.0 % 94.0-99.0 %COHB ART (test code = 0103779870) 0.2 % 0.0-1.5 %METHB ART (test code = 7981436629) 0.2 % 0.4-1.5 L VOL%O2 ART (test code = 0640304918) 11.8 % 15.0-23.0 L NA (test code = 0784136817) 140 mmol/L 135-145 K+ (test code = 3146009849) 4.9 mmol/L 3.5-5.0 AC CA IONZ (test code = 4309980012) 4.60 mg/dL 4.50-5.30 GLUCOSE (test code = 9552163636) 137 mg/dL 70-110 H LACTIC ACID (test code = 4868242941) 1.92 mmol/L 0.50-2.20 Lab Interpretation (test code = 32184-5) [facility] 02:29:37* Test Item Value Reference Range Interpretation Comme [facility] POCT GLU (test code = 8321069373) 153 mg/dL 70-110 H Lab Interpretation (test cod e = 85604-8) [facility] + Lactic Dzet9769-57-01 01:55:07* Test Item Value Reference Range Interpretation Comme [facility] PH (test code = 2) 7.23 7.35-7.45 L PCO2 (test code = 6031966957) 48 See_Comment H [Automated messa ge] The system which generated this result transmitted reference range: 35 - 45 mmHg. The reference range was not used to interpret this result as normal/abnormal. PO2 (test code = 1222801476) 171 See_Comment H [Automated messa ge] The system which generated this result transmitted reference range: 80 - 100 mmHg. The reference range was not used to interpret this result as normal/abnormal. HCO3 (test code = 9908109438) 19 See_Comment L [Automated messa ge] The system which generated this result transmitted reference range: 22 - 26 mEq/L. The reference range was not used to interpret this result as normal/abnormal. BE (test code = 3260598244) -7.7 See_Comment L [Automated messa ge] The system which generated this result transmitted reference range: -3.0 - 3.0 mEq/L. The reference range was not used to interpret this result as normal/abnormal. THB (test code = 6703368625) 8.3 g/dL 12.0-16.0 LL %O2HB (test code = 4005264698) 99.0 % 94.0-99.0 %COHB ART (test code = 2054465211) 0.2 % 0.0-1.5 %METHB ART (test code = 2298315615) 0.2 % 0.4-1.5 L VOL%O2 ART (test code = 1751410427) 12.0 % 15.0-23.0 L NA (test code = 3411006223) 139 mmol/L 135-145 K+ (test code = 6068839403) 4.8 mmol/L 3.5-5.0 AC CA IONZ (test code = 2598897646) 4.60 mg/dL 4.50-5.30 GLUCOSE (test code = 3292731690) 133 mg/dL 70-110 H LACTIC ACID (test code = 3448551412) 2.69 mmol/L 0.50-2.20 H Lab Interpretation (test code = 36306-6) Abnormal [facility] METABOLIC PANEL (NA, K, CL, CO2, GLUCOSE, BUN, CREATININE, CA)2023-04-11 00:07:30* Test Item Value Reference Range Interpretation Comme nts NA (test code = 1523594268) 138 mmol/L 135-145 K (test code = 4248430538) 4.8 mmol/L 3.5-5.0 CL (test code = 6270886615) 111 mmol/L 98-108 H CO2 TOTAL (test code = 3985158589) 20 mmol/L 23-31 L AGAP (test code = 0656500951) 7 2-16 BUN (test code = 8755680285) 17 mg/dL 7-23 GLUCOSE (test code = 4830000591) 149 mg/dL 70-110 H CREATININE (test code = 0046922172) 1.40 mg/dL 0.50-1.04 H CALCIUM (test code = 0848542140) 7.8 mg/dL 8.6-10.6 L eGFR (test code = 60588-1) 46.2 mL/min/1.73m2 CKD-EPI eGFR (2020). Assuming creatinine has been stable day-to-day for at least three months, the eGFR indicates Category G3a (45 - 59 mL/min/1.73 m2) Lab Interpretation (test code = 29936-0) [facility] + Lactic Kpdp5778-69-28 22:38:22* Test Item Value Reference Range Interpretation Comme nts PH (test code = 2) 7.21 7.35-7.45 L PCO2 (test code = 1108126475) 51 See_Comment H [Automated messa ge] The system which generated this result transmitted reference range: 35 - 45 mmHg. The reference range was not used to interpret this result as normal/abnormal. PO2 (test code = 8385431168) 153 See_Comment H [Automated messa ge] The system which generated this result transmitted reference range: 80 - 100 mmHg. The reference range was not used to interpret this result as normal/abnormal. HCO3 (test code = 5584581647) 20 See_Comment L [Automated messa ge] The system which generated this result transmitted reference range: 22 - 26 mEq/L. The reference range was not used to interpret this result as normal/abnormal. BE (test code = 1977859335) -7.7 See_Comment L [Automated messa ge] The system which generated this result transmitted reference range: -3.0 - 3.0 mEq/L. The reference range was not used to interpret this result as normal/abnormal. THB (test code = 7273919361) 8.4 g/dL 12.0-16.0 L %O2HB (test code = 7474770202) 98.7 % 94.0-99.0 %COHB ART (test code = 4385914274) 0.3 % 0.0-1.5 %METHB ART (test code = 6704757189) 0.0 % 0.4-1.5 L VOL%O2 ART (test code = 7872288261) 12.0 % 15.0-23.0 L NA (test code = 1231505222) 139 mmol/L 135-145 K+ (test code = 0097410733) 4.8 mmol/L 3.5-5.0 AC CA IONZ (test code = 8365051174) 4.50 mg/dL 4.50-5.30 GLUCOSE (test code = 4763892034) 142 mg/dL 70-110 H LACTIC ACID (test code = 1095573605) 2.60 mmol/L 0.50-2.20 H Lab Interpretation (test code = 49610-7) [facility] 21:42:03* Test Item Value Reference Range Interpretation Comme nts POCT GLU (test code = 4588976056) 150 mg/dL 70-110 H Lab Interpretation (test cod e = 50825-6) Abnormal [facility] METABOLIC PANEL (NA, K, CL, CO2, GLUCOSE, BUN, CREATININE, CA)2023-04-10 20:58:37* Test Item Value Reference Range Interpretation Comme nts NA (test code = 2097275333) 138 mmol/L 135-145 K (test code = 3102198229) 5.6 mmol/L 3.5-5.0 H CL (test code = 1207144806) 111 mmol/L 98-108 H CO2 TOTAL (test code = 1570832332) 22 mmol/L 23-31 L AGAP (test code = 9460386971) 5 2-16 BUN (test code = 1880969718) 15 mg/dL 7-23 GLUCOSE (test code = 2425939284) 118 mg/dL 70-110 H CREATININE (test code = 7634388905) 1.33 mg/dL 0.50-1.04 H CALCIUM (test code = 8308978420) 7.8 mg/dL 8.6-10.6 L eGFR (test code = 38546-0) 49.1 mL/min/1.73m2 CKD-EPI eGFR (2020). Assuming creatinine has been stable day-to-day for at least three months, the eGFR indicates Category G3a (45 - 59 mL/min/1.73 m2) Lab Interpretation (test code = 35224-9) [facility] + Lactic Ugth2174-32-17 20:27:42* Test Item Value Reference Range Interpretation Comme nts PH (test code = 2) 7.20 7.35-7.45 L PCO2 (test code = 0659283135) 58 See_Comment H [Automated messa ge] The system which generated this result transmitted reference range: 35 - 45 mmHg. The reference range was not used to interpret this result as normal/abnormal. PO2 (test code = 9030395199) 161 See_Comment H [Automated messa ge] The system which generated this result transmitted reference range: 80 - 100 mmHg. The reference range was not used to interpret this result as normal/abnormal. HCO3 (test code = 4958743920) 22 See_Comment [Automated messa ge] The system which generated this result transmitted reference range: 22 - 26 mEq/L. The reference range was not used to interpret this result as normal/abnormal. BE (test code = 3459068393) -6.0 See_Comment L [Automated messa ge] The system which generated this result transmitted reference range: -3.0 - 3.0 mEq/L. The reference range was not used to interpret this result as normal/abnormal. THB (test code = 2372788948) 8.2 g/dL 12.0-16.0 LL %O2HB (test code = 3066486281) 98.5 % 94.0-99.0 %COHB ART (test code = 5232325681) 0.4 % 0.0-1.5 %METHB ART (test code = 4924343929) 0.2 % 0.4-1.5 L VOL%O2 ART (test code = 6041786826) 11.7 % 15.0-23.0 L NA (test code = 0441771071) 138 mmol/L 135-145 K+ (test code = 4367235801) 5.4 mmol/L 3.5-5.0 H AC CA IONZ (test code = 2538809940) 4.60 mg/dL 4.50-5.30 GLUCOSE (test code = 2629636617) 111 mg/dL 70-110 H LACTIC ACID (test code = 8601380359) 1.31 mmol/L 0.50-2.20 Lab Interpretation (test code = 29042-6) [facility] 15:00:49* Test Item Value Reference Range Interpretation Comme [facility] POCT GLU (test code = 2786471258) 156 mg/dL 70-110 H Lab Interpretation (test cod e = 77398-1) [facility]+K+GLU+CA2+2023-04-10 14:40:42* Test Item Value Reference Range Interpretation Comme [facility] PH (test code = 2) 7.28 7.35-7.45 L PCO2 (test code = 4940912081) 45 See_Comment [Automated messa ge] The system which generated this result transmitted reference range: 35 - 45 mmHg. The reference range was not used to interpret this result as normal/abnormal. PO2 (test code = 3329446257) 89 See_Comment [Automated messa ge] The system which generated this result transmitted reference range: 80 - 100 mmHg. The reference range was not used to interpret this result as normal/abnormal. HCO3 (test code = 5768433991) 21 See_Comment L [Automated messa ge] The system which generated this result transmitted reference range: 22 - 26 mEq/L. The reference range was not used to interpret this result as normal/abnormal. BE (test code = 9168142957) -5.7 See_Comment L [Automated messa ge] The system which generated this result transmitted reference range: -3.0 - 3.0 mEq/L. The reference range was not used to interpret this result as normal/abnormal. THB (test code = 1368282389) 8.8 g/dL 12.0-16.0 L %O2HB (test code = 3137023208) 94.8 % 94.0-99.0 %COHB ART (test code = 0243094195) 0.6 % 0.0-1.5 %METHB ART (test code = 5766807565) 0.0 % 0.4-1.5 L VOL%O2 ART (test code = 2844639258) 11.9 % 15.0-23.0 L NA (test code = 5247102340) 138 mmol/L 135-145 K+ (test code = 1736166637) 4.4 mmol/L 3.5-5.0 AC CA IONZ (test code = 5180599102) 4.80 mg/dL 4.50-5.30 GLUCOSE (test code = 2596354212) 135 mg/dL 70-110 H Lab Interpretation (test code = 49134-4) [facility] 10:55:04* Test Item Value Reference Range Interpretation Comme [facility] POCT GLU (test code = 0817177177) 189 mg/dL 70-110 H Lab Interpretation (test cod e = 25663-2) [facility] + LACTIC [id number] 09:34:48* Test Item Value Reference Range Interpretation Comme nts PH (test code = 2055554191) 7.35 7.32-7.42 PCO2 CARLOS (test code = 1413871490) 36 See_Comment L [Automated messa ge] The system which generated this result transmitted reference range: 41 - 51 mmHg. The reference range was not used to interpret this result as normal/abnormal. PO2 CARLOS (test code = 1363594947) 55 See_Comment HH [Automated messa ge] The system which generated this result transmitted reference range: 25 - 40 mmHg. The reference range was not used to interpret this result as normal/abnormal. HCO3 CARLOS (test code = 2189992198) 19 See_Comment L [Automated messa ge] The system which generated this result transmitted reference range: 24 - 28 mEq/L. The reference range was not used to interpret this result as normal/abnormal. AC VBE(BEAKER) (test code = 6174587209) -6.0 mEq/L THB CARLOS (test code = 5991524231) 9.0 g/dL 12.0-16.0 L %O2HB CARLOS (test code = 0666715797) 89.2 % 52.0-63.0 H %COHB CARLOS (test code = 4800833123) 0.1 % 0.0-1.5 %METHB CARLOS (test code = 1789177138) 0.1 % 0.4-1.5 L VOL%O2 CARLOS (test code = 1396236178) 11.3 % 6.0-12.0 NA (test code = 2165402693) 137 mmol/L 135-145 K+ (test code = 1072880733) 4.3 mmol/L 3.5-5.0 AC CA IONZ (test code = 9388592437) 4.70 mg/dL 4.50-5.30 GLUCOSE (test code = 6176265490) 151 mg/dL 70-110 H LACTIC ACID (test code = 8814078927) 1.91 mmol/L 0.50-2.20 Lab Interpretation (test code = 28537-1) [facility] O2355-48-75 00:27:26* Test Item Value Reference Range Interpretation Comme nts TROPONIN I (test code = 6791485621) 0.001 ng/mL <=0.034 CECIL (test code = [...] of biotin. Lab Interpretation (test code = 80041-2) [facility] [id number] 21:27:30* Test Item Value Reference Range Interpretation Comme nts TROPONIN I (test code = 8986124617) 0.002 ng/mL <=0.034 CECIL (test code = [...] of biotin. Lab Interpretation (test code = 94559-8) [facility] AntonioN-TERMINAL NMA-PGE3781-28-05 21:25:13* Test Item Value Reference Range Interpretation Comme nts NT-proBNP (test code = 04944-9) 76 pg/mL <=125 Lab Interpretation (test cod e = 41831-2) [facility]OL[facility] PAN[facility] (36931)2023-01-18 21:16:32* Test Item Value Reference Range Interpretation Comme nts NA (test code = 1447771661) 136 mmol/L 135-145 K (test code = 4559702812) 4.3 mmol/L 3.5-5.0 CL (test code = 5364847396) 105 mmol/L 98-108 CO2 TOTAL (test code = 2597039932) 26 mmol/L 23-31 AGAP (test code = 3788393171) 5 2-16 BUN (test code = 1704804125) 11 mg/dL 7-23 GLUCOSE (test code = 1602259507) 82 mg/dL 70-110 CREATININE (test code = 5316647719) 0.90 mg/dL 0.50-1.04 TOTAL BILI (test code = 3084308419) 0.2 mg/dL 0.1-1.1 CALCIUM (test code = 9836493160) 8.5 mg/dL 8.6-10.6 L T PROTEIN (test code = 7693869954) 6.9 g/dL 6.3-8.2 ALBUMIN (test code = 6689115860) 3.8 g/dL 3.5-5.0 ALK PHOS (test code = 5626074911) 107 U/L 34-122 ALTv (test code = 1742-6) 28 U/L 5-35 AST(SGOT) (test code = 2921117601) 32 U/L 13-40 eGFR (test code = 4809864654) 66.5 mL/min/1.73m2 CECIL (test code = CECIL) [...] imaging tests). Lab Interpretation (test code = 26477-7) [facility] 21:15:51* Test Item Value Reference Range Interpretation Comme nts LIPASE (test code = 0614491064) 68 U/L 0-220 Lab Interpretation (test cod e = 45550-9) [facility] WITH TOXP5791-46-07 20:55:45* Test Item Value Reference Range Interpretation Comme nts WBC (test code = 6690-2) 9.55 See_Comment [Automated messa ge] The system which generated this result transmitted reference range: 4.30 - 11.10 10*3/?L. The reference range was not used to interpret this result as normal/abnormal. RBC (test code = 789-8) 3.62 See_Comment L [Automated messa ge] The system [...] g/dL 31.6-35.1 L RDW-SD (test code = 31975-4) 46.9 fL 39.0-49.9 RDW-CV (test code = 788-0) 16.4 % 12.0-15.5 H PLT (test code = 777-3) 418 See_Comment H [Automated messa ge] The system which generated this result transmitted reference range: 166 - 358 10*3/?L. The reference range was not used to interpret this result as normal/abnormal. MPV (test code = 03299-5) 10.2 fL 9.5-12.9 NRBC/100 WBC (test code = 6758462837) 0.0 See_Comment [Automated me ssage] The system which generated this result transmitted reference range: 0.0 - 10.0 /100 WBCs. The reference range was not used to interpret this result as normal/abnormal. NRBC x10^3 (test code = 3226603699) See_Comment [Automated messa ge] The system which generated this result transmitted reference range: 10*3/?L. The reference range was not used to interpret this result as normal/abnormal. GRAN MAT (NEUT) % (test code = 770-8) 60.8 % IMM GRAN % (test code = 4102031027) 0.40 % LYMPH % (test code = 736-9) 30.9 % MONO % (test code = 5905-5) 5.2 % EOS % (test code = 713-8) 1.9 % BASO % (test code = 706-2) 0.8 % GRAN MAT x10^3(ANC) (test code = 1335770362) 5.80 10*3/uL 1.88-7.09 IMM GRAN x10^3 (test code = 6361334414) 0.04 10*3/uL 0.00-0.06 LYMPH x10^3 (test code = 731-0) 2.95 10*3/uL 1.32-3.29 MONO x10^3 (test code = 742-7) 0.50 10*3/uL 0.33-0.92 EOS x10^3 (test code = 711-2) 0.18 10*3/uL 0.03-0.39 BASO x10^3 (test code = 704-7) 0.08 10*3/uL 0.01-0.07 H Lab Interpretation (test code = 35400-3) [facility] AntonioPOCT PKBK0732-52-26 18:12:00* Test Item Value Reference Range Interpretation Comme nts POCT PREG (test code = 1605) negative On board controls acceptable with C Line (test code = 3574) present POCT PREG LOT # (test code = 3575) [id number] POCT PREG TEST DATE ( test code = 3576) Lab Interpretation (test cod e = 64604-1) Normal [facility] AntonioACTIVATED PARTIAL THRMPLAS SZP1706-68-41 17:01:15* Test Item Value Reference Range Interpretation Comme nts APTT Patient (test code = 3173-2) See_Comment [Automated message] The system which generated this result transmitted reference range: 23 - 38 Seconds. The reference range was not used to interpret this result as normal/abnormal. CECIL (test code = CECIL) The [facility] patient population mean normal value for aPTT is 30 seconds. Lab Interpretation (test code = 85949-1) Normal [facility]. METABOLIC PANEL (97863)2022-01-11 16:59:53* Test Item Value Reference Range Interpretation Comme [facility] NA (test code = 4108611456) 138 mmol/L 135-145 K (test code = 7996438497) 4.9 mmol/L 3.5-5 CL (test code = 7297727353) 108 mmol/L 98-108 CO2 TOTAL (test code = 4801014241) 25 mmol/L 23-31 AGAP (test code = 7159083496) 2-16 BUN (test code = 6069865350) 13 mg/dL 7-23 GLUCOSE (test code = 1565434402) 100 mg/dL 70-110 CREATININE (test code = 4668319758) 1.09 mg/dL 0.5-1.04 H TOTAL BILI (test code = 1433818600) 0.1 mg/dL 0.1-1.1 CALCIUM (test code = 0943373717) 9.0 mg/dL 8.6-10.6 T PROTEIN (test code = 0979549011) 6.4 g/dL 6.3-8.2 ALBUMIN (test code = 8955982797) 3.9 g/dL 3.5-5 ALK PHOS (test code = 1133145960) 119 U/L 34-122 ALTv (test code = 1742-6) 23 U/L 5-35 AST(SGOT) (test code = 1453983975) 24 U/L 13-40 eGFR (test code = 4026027697) mL/min/1.73m2 CECIL (test code = CECIL) Association [...] imaging tests). Lab Interpretation (test code = 59525-2) Abnormal [facility] WITH SZFF7181-90-72 16:49:15* Test Item Value Reference Range Interpretation Comme nts WBC (test code = 6690-2) See_Comment [[employer]] The system which generated this result transmitted reference range: 4.30 - 11.10 10*3/?L. The reference range was not used to interpret this result as normal/abnormal. RBC (test code = 789-8) See_Comment [[employer]] The system which generated this result transmitted [...] g/dL 31.6-35.1 L RDW-SD (test code = 45938-1) 45.5 fL 39-49.9 RDW-CV (test code = 788-0) 16.9 % 12-15.5 H PLT (test code = 777-3) See_Comment H [Automated messa ge] The system which generated this result transmitted reference range: 166 - 358 10*3/?L. The reference range was not used to interpret this result as normal/abnormal. MPV (test code = 48887-7) 10.3 fL 9.5-12.9 NRBC/100 WBC (test code = 8104856715) See_Comment [Automated [employer] ssage] The system which generated this result transmitted reference range: 0.0 - 10.0 /100 WBCs. The reference range was not used to interpret this result as normal/abnormal. NRBC x10^3 (test code = 7025309850) See_Comment [Automated messa ge] The system which generated this result transmitted reference range: 10*3/?L. The reference range was not used to interpret this result as normal/abnormal. GRAN MAT (NEUT) % (test code = 770-8) 55.9 % IMM GRAN % (test code = 0249667869) 0.60 % LYMPH % (test code = 736-9) 33.3 % MONO % (test code = 5905-5) 6.9 % EOS % (test code = 713-8) 2.6 % BASO % (test code = 706-2) 0.7 % GRAN MAT x10^3(ANC) (test code = 3737211378) 4.52 10*3/uL 1.88-7.09 IMM GRAN x10^3 (test code = 1585214297) 0.05 10*3/uL 0-0.06 LYMPH x10^3 (test code = 731-0) 2.70 10*3/uL 1.32-3.29 MONO x10^3 (test code = 742-7) 0.56 10*3/uL 0.33-0.92 EOS x10^3 (test code = 711-2) 0.21 10*3/uL 0.03-0.39 BASO x10^3 (test code = 704-7) 0.06 10*3/uL 0.01-0.07 Lab Interpretation (test code = 16559-9) [facility]- [facility] CHEST 1 L0367-69-43 10:53:00 [facility] : 1975 Sex: F Name: JEM WILSON [facility] : 1975 Age/S: 45 / F [address] Unit #: [id number] Loc: [place] [address] Phys: Paras Puri MD Acct: [id number] Dis Date: Status: [facility] PHONE #: [phone] Exam Date: 04/13/2021 1035 FAX #: Reason: PRE PROCEDURE EXAMS: CPT: [id number] XR CHEST1 V 49498 Fluoro Time: DAP (Gy m2): Air Kerma [...] PAGE 1 Signed Report Name: JEM WILSON [facility] : 1975 Age/S: 45 / F [address] Unit #: [id number] Loc: [place] [address] Phys: Paras Puri MD Acct: [id number] Dis Date: Status: REG SDC PHONE #: [phone] Exam Date: 04/13/2021 1035 FAX #: Reason: PRE PROCEDURE EXAMS: CPT: [id number] XR CHEST 1 V 47748 Fluoro Time: DAP (Gy m2): Air Kerma (mGy): (Continued) Technologist: Bryanna Voss RT (R)(CT) Trnscb Date/Time: 04/13/2021 (7195) t.SDR.JP19 Orig Print D/T: S:04/13/2021 (1796) PAGE 2 Signed ReportCOMPREHENSIVE METABOLIC AJSXS8048-94-17 10:51:00* Test Item Value Reference Range Interpretation [...] = ALKP) 141 Unit/L 45-117 H PROTHROMBIN ZDEF8576-78-08 10:42:00* Test Item Value Reference Range Interpretation [facility] PAT[facility] (test code = PTP) 12.2 [...] Infarction (to prevent recurrent infarct). THROMBOPLASTIN TIME LWVSIQL4677-38-67 10:42:00* Test Item Value Reference Range Interpretation [facility] THROMBOPLASTIN TIME PARTIAL (test code = PTT) 41.5 SECONDS 26-35 H CBC W/AUTO GZWT8582-95-74 10:34:00* Test Item Value Reference Range Interpretation [facility] WHITE BLOOD CELL (test code = WBC) [...] Notes Date/Time Note Provider Source 2023-05-03 13:33:44 8701-43-00D45:33:44F ormatting of this note might be different from the original.Patient's insurance did not cover Symbicort, so sent [...] severe SOB and chest pain.ROBERTO Mccarthy-1Internal Medicine 34918-3Rpqgrbmwa encounter AnzwDO1917-50-82V11:46:30Telephon e encounter NoteTXT1.2.840.011754.1.13.104.2. 7.2.276909|[id number] for patient ebja30228-0YbwtBBGXRQJSMYHBxdfelp ed C-CDA narrative text[address]vest[place] 875HZQNVYVLIKUROXFQYQHGCH4559-96- 21T11:46:301.2.840.939405.1.72.3. 15|1.2.840.038531.1.13.104.2.7.2. 727879_[id number] [facility] 2023-04-24 13:22:48 2363-92-60C32:22:48F ormatting of this note is different from the original.Pharmacy comment: Alternative Requested:NOT COVERED BY INSURENCE PLEASE CHANGE. 39323-6Hlorkgsfw encounter ZuhrUD5713-52-02R84:22:57Telephon e encounter NoteTXT1.2.840.002161.1.13.104.2. 7.2.605029|[id number] for patient blck49697-5JsdaMESBDAOVFGTUefpufw ed C-CDA narrative fcjb175451708QcbyaaisGerber SALVADOR[address] TjowYejuiljiiZxbkykaajPQNE6472513 131UZGEEQBSPCPPAGLGFKOPLY4972-81- 10T13:22:571.2.840.815626.1.72.3. 15|1.2.840.363340.1.13.104.2.7.2. 727879_[id number] Gerber Workman MA [facility] 2023-01-18 20:17:00 3323-34-81H17:17:00F ormatting of this note might be different from the [...] ER noted upon dischargePt ambulated to the [facility] with steady gait 75581-4Kfdfatbco department QqbtJR3758-12-02P21:54:42[facility] department NoteTXT1.2.840.734403.1.13.104.2. 7.2.263253|[id number] for patient htry67971-3LwjlNU180768878Jzzjud J Hoot RN[address] StreetTXTX[address] 810IXESAFLNOXICIJMKSFTXWB8168-80- 05T22:54:421.2.840.799675.1.72.3. 15|1.2.840.915645.1.13.104.2.7.2. 727879_1891544789 Christina Amato RN [facility] 2023-01-18 13:30:21 0965-11-52K15:30:21F ormatting of this note might be different from the original.Patient reports that she feels like her legs are swelling since yesterday. Patient also reports that she feels like she can't breathe right. Patient coughing at triage and states that the cough started today. 19221-6Lxzzrttyq department Triage psbpAA3368-92-58F24:33:02Emergen y department Triage noteTXT1.2.840.925475.1.13.104.2. 7.2.347517|[id number] for patient wiio63975-5Cuopdtlyq department FtoiRN260359488Jwuz M Hayes RNUT[address]TXTX[address] 160UOIYMKHEPIPGGQSYFHEFUY4824-88- 05T13:33:021.2.840.559998.1.72.3. 15|1.2.840.071550.1.13.104.2.7.2. 727879_1891208960 Zaina Samuels RN [facility] 2023-01-18 13:28:00 1049-19-93W65:28:00A ssociated Order(s): EKG-12 Lead ROUTINE ONCEPre-Procedure Diagnose(s): Dyspnea, unspecified typePost-Procedure Diagnose(s): Dyspnea, unspecified type [facility] Emergency Department NotePatient Name: Jem Perez JunaidDate of : 1975 47 year old femaleTreatment Room: [place] [address]Medical Record Number: [id number] Care Physician: Kyleigh Hanna [facility]Patient Escorted by: Family [5]Mode of Arrival: Personal [...] 0.01 - 0.07 10*3/uL COMP. METABOLIC PANEL (03130) - Abnormal NA 136 135 - 145 [...] TESTING) CBC WITH DIFF COMP. METABOLIC PANEL (03035) LIPASE TROPONIN I N-TERMINAL PRO-BNP THYROID STIMULATING [...] Eval:ED Events Date/Time Event User Comments 01/18/23 1336 Medical Screening Begins ELIANE BLACKWELL, MAYCO KILLIAN -- 01/18/23 1336 First Provider Evaluation ELIANE BLACKWELL, MAYCO KILLIAN -- No notes of EC Admission Criteria [...] ED Physician in the absence of a mixer operator helper hot metal: yes Previous ECG: Previous ECG: UnavailableInterpretation: Interpretation: [...] Follow-up:PCPElectronically signed by: Mayco Del Rio MD01/18/231942 13735-5Nzyeyyzxa Emergency department LvfwYT2180-01-71K24:43:34Physicia n Emergency department NoteTXT1.2.840.857029.1.13.104.2. 7.2.010437|[id number] for patient hxer88849-1Ojfwjggcl department NoteLNUT[address] BsviWpsdboczpZlojwvyqhIQPR3229713 247YECSWHBGXAXSXEOXTWXWLB0626-83- 05T19:43:341.2.840.136103.1.72.3. 15|1.2.840.581790.1.13.104.2.7.2. 727879_[id number] [facility] 2021-04-13 12:57:00 DZ7879457212atABxQmH GnWcpdWaxP9Hw TR5pAdxtikm91K+ZHmOsw5iAvOVr/i36e XHoJrIKCP+3420-25-44U89:57:00 [facility] ([facility])DT Operative NoteREPORT#:[id number] REPORT STATUS: SignedDATE:04/13/21 TIME:1257 PATIENT: JEM WILSON UNIT #: [id number]#: [id number] ROOM/BED:: 71 AGE: 45 SEX: F ATTEND: Paras Puri [facility] AUTHOR: Paras Puri MD * ALL edits or amendments must be made on the electronic/computer document * Operative Report Operative NoteNote:Procedure Date: 04/13/2021 Procedure:Diagnostic cardiac catheterization, left ventriculogram, and selective coronary angiograms Indication:Progressive angina failed optimized medical management Procedure details:Following informed consent and detailed discussion of procedural risks and benefits with the patient and family that preceded time-out session as per [facility] then followed by adequate moderate sedation [...] tolerated well the procedure, was discharged fromthe research lab assistant in stable condition. Results: I. Diagnostic angiography [...] were addressed satisfactorily at 1427 RPT #: [id number] OF REPORT OPOperative jthsfa7518-38-70I51:57:00L.PDOC20 109455-3813XKNiyseculo for patient dsssJMPHJOVVSZZAZN7548-13-30X33:2 7:55 HCAPM 2021-04-13 10:31:00 [id number] wFcOsbvbfQfZS l+ZkNe28zToJsb8M7Gs1+LLX/ZOZBbnU2 4syqSLaRK78435-67-75H84:31:434473 -[address] [address] PATIENT NAME: JEM WILSON ADMIT DATE: 04/13/21ACCOUNT NO: [id number] ROOM NO: AGE: 45 REPORT TYPE: eELECTROCARDIOGRAM SEX: F ADMITTING PHYSICIAN: ATTENDING PHYSICIAN: Paras Puri MD Order:[id number] Reason : PRE OP Test Date/Time Stamp:TueApr 13 2021 10:31:39Blood Pressure : / mmHGVent. Rate : 081 BPM Atrial Rate : 081 BPM P-R Int : 136 ms QRS Dur : 084 ms QT Int : 388 ms P-R-T Axes : 060 083 071 degrees QTc Int : 450 ms Normal sinus rhythmNormal ECGNo previous ECGs availableConfirmed by JESÚS BLACKWELL, MANDY ([id number]) on 04/16/2021 12:41:39 PM Referred By: Parsa Puri Confirmed by:AMNDY ESPINOSA MD at 1241 PATIENT NAME: JEM WILSON . [id number] for patient dfisTAAXDPDNOUZFVQ4047-44-43N92:2 8:15 HCAPM
[2023-12-04] MEDS ORDERED: ALBUTEROL 2.5 MG/3 ML NEB SOL ONE (13:29)
[2023-12-04] MEDS ORDERED: IPRATROPIUM BROM 0.5MG/2.5ML ONE (13:29)
--- NOTE | 2023-12-04 13:49 | RAD REPORT ---
EXAM DESCRIPTION: RAD - Chest Single View - 12/04/2023 1:41 pm CLINICAL HISTORY: Cough;Dyspnea COMPARISON: Chest Single View dated 08/06/2023; Chest Single View dated 04/09/2023; Chest Single View dated 07/01/2022 FINDINGS: Lines: None. Lungs: No evidence of edema or pneumonia. Pleural: No significant pleural effusions or pneumothorax. Cardiac: The heart size is within normal limits. Mediastinum: Within normal limits. Bones: No acute fractures. Other: None IMPRESSION: No acute cardiopulmonary disease.
[2023-12-04 14:13] LABS: SARS-CoV-2 Antigen CONTROL BLUE LINE VIS/BG OK; SARS-CoV-2 Antigen Rapid Res Negative (Negative)
--- NOTE | 2023-12-04 14:22 | ER ---
Nurse's Notes [facility] Name: April Ford Age: 48 yrs Sex: Female : 1975 Arrival Date: 12/04/2023 Time: 13:14 Bed 15 Private MD: Diagnosis: Acute upper respiratory infection, unspecified Presentation: 12/03 13:29 Chief complaint: Patient states: Sore throat, chills/hot, fatigue, sleeping a lot for 2 ll1 days. Coronavirus screen: Client denies travel out of the [place] in the last 14 days. chills, cough unrelated to allergies, fatigue, muscle pain, sore throat, Client presents with at least one sign or symptom that may indicate coronavirus-19. Standard/surgical mask placed on the client. Ebola Screen: Patient denies travel to an Ebola-affected area in the 21 days before illness onset. Initial Sepsis Screen: Does the patient meet any 2 criteria? No. Patient's initial sepsis screen is negative. Does the patient have a suspected source of infection? No. Patient's initial sepsis screen is negative. Risk Assessment: Do you want to hurt yourself or someone else? Patient reports no desire to harm self or others. Onset of symptoms was December 03, 2023. 13:29 Method Of Arrival: Ambulatory ll1 13:29 Acuity: BALDEMAR 4 ll1 Triage Assessment: 13:30 General: Appears uncomfortable, Behavior is calm, cooperative, appropriate for age. ll1 General: Reports chills for feeling ill for fatigue for. Pain: Complains of pain in throat Pain currently is 10 out of 10 on a pain scale. Quality of pain is described as aching. EENT: Reports pain when swallowing. Neuro: Reports weakness. Respiratory: Reports cough that is. Historical: - Allergies: 13:28 PENICILLINS; ll1 - PMHx: 13:28 Anxiety; Asthma; chronic back pain; diabetes mellitus; Heart block; Migraines; Panic ll1 Attacks; - PSHx: 13:28 Ankle-Left; Ligation of fallopian tube; ll1 - Immunization history:: Adult Immunizations up to date. - Infectious Disease History:: Denies. - Social history:: Smoking status: Patient reports the use of cigarette tobacco products, smokes .25 packs per day. Screenin:22 [facility] ED Fall Risk Assessment (Adult) History of falling in the last 3 months, rs5 including since admission No falls in past 3 months (0 pts) Confusion or Disorientation No (0 pts) Intoxicated or Sedated No (0 pts) Impaired Gait No (0 pts) Mobility Assist Device Used No (0 pt) Altered Elimination No (0 pt) Score/Fall Risk Level 0 - 2 = Low Risk Oriented to surroundings, Maintained a safe environment. 13:22 Abuse screen: Denies threats or abuse. Nutritional screening: No deficits noted. rs5 Tuberculosis screening: No symptoms or risk factors identified. Assessment: 13:22 General: Appears in no apparent distress. uncomfortable, Behavior is cooperative, rs5 anxious. Pain: Complains of pain in generalized body aches Pain currently is 3 out of 10 on a pain scale. Quality of pain is described as aching, Is continuous. Neuro: Level of Consciousness is awake, alert, obeys commands, Oriented to person, place, time, situation. Cardiovascular: Patient's skin is warm and dry. Respiratory: Reports shortness of breath cough that is Airway is patent Respiratory effort is even, unlabored, Respiratory pattern is regular, symmetrical. GI: No signs and/or symptoms were reported involving the gastrointestinal system. : No signs and/or symptoms were reported regarding the genitourinary system. EENT: Reports nasal congestion nasal discharge sore throat. Derm: Skin is intact, Skin is pink, warm \T\ dry. Musculoskeletal: Range of motion: intact in all extremities. 14:35 Reassessment: Patient and/or family updated on plan of care and expected duration. Pain rs5 level reassessed. Patient is alert, oriented x 3, equal unlabored respirations, skin warm/dry/pink. Vital Signs: 13:29 BP 156 / 102; Pulse 96; Resp 20; Temp 98.7(O); Pulse Ox 98% on R/A; Height 5 ft. 6 in. ll1 ; Pain 10/10; 14:31 BP 140 / 81; Pulse 88; Resp 17; Pulse Ox 99% on R/A; rs5 13:29 Pain Scale: Adult ll1 ED Course: 13:20 Patient arrived in ED. mg5 13:21 [facility] 13:21 Ramya Judd MD is Attending Physician. jh7 13:21 Alin Baptiste, RN is Primary Nurse. rs5 13:22 Patient has correct armband on for positive identification. Placed in gown. Bed in low rs5 position. Call light in reach. Side rails up X2. 13:24 Arm band placed on Patient placed in an exam room, on a stretcher. ll1 13:30 Triage completed. ll1 13:43 XRAY Chest (1 view) In Process Unspecified. EDMS 14:38 No provider procedures requiring assistance completed. rs5 14:45 Patient did not have IV access during this emergency room visit. rs5 Administered Medications: 13:33 Drug: DuoNeb Nebulize (2.5 mg - 0.5 mg) 3 ml Nebulizer once Route: Nebulizer; rs5 14:41 Follow up: Response: No adverse reaction rs5 Medication: 13:43 VIS not applicable for this client. rs5 Outcome: 14:21 Discharge ordered by MD. jh7 14:45 Discharged to home ambulatory, rs5 14:45 Condition: stable rs5 14:45 Discharge instructions given to patient, family, Instructed on discharge instructions, follow up and referral plans. medication usage, Demonstrated understanding of instructions, follow-up care, medications, Prescriptions given X 2, 14:46 Patient left the ED. Signatures: Dispatcher [employer] Betsey Alva, RN RN ll1 Rabia Mcintosh Jennifer, NURSE NAVIGATOR [place] [address] Alin Baptiste, RN RN rs5 Alyson Atwood mg5 Corrections: (The following items were deleted from the chart) 13:29 13:28 Allergies: Benadryl; ll1 ll1
--- NOTE | 2023-12-04 14:22 | EDPHYS ---
Physician Documentation [facility] Name: April Ford Age: 48 yrs Sex: Female : 1975 Arrival Date: 12/04/2023 Time: 13:14 Bed 15 Private MD: ED Physician Ramya Judd HPI: 12/03 13:28 This 48 yrs old Female presents to ER via Ambulatory with complaints of Flu Symptoms. [facility] 13:28 48-year-old female with a past medical history of asthma and diabetes presents to the [facility] ER complaining of flulike symptoms since yesterday. The patient reports chills, fatigue, mild shortness of breath, sore throat, and cough since yesterday. Denies any fever.. Historical: - Allergies: 13:28 PENICILLINS; ll1 - PMHx: 13:28 Anxiety; Asthma; chronic back pain; diabetes mellitus; Heart block; Migraines; Panic ll1 Attacks; - PSHx: 13:28 Ankle-Left; Ligation of fallopian tube; ll1 - Immunization history:: Adult Immunizations up to date. - Infectious Disease History:: Denies. - Social history:: Smoking status: Patient reports the use of cigarette tobacco products, smokes .25 packs per day. ROS: 13:28 Constitutional: Per [place] [id number] Exam: 13:28 Constitutional: This is a well developed, well nourished patient who is awake, alert, [facility] and in no acute distress. Head/Face: Normocephalic, atraumatic. Neck: Trachea midline, no thyromegaly or masses palpated, and no cervical lymphadenopathy. Supple, full range of motion without nuchal rigidity, or vertebral point tenderness. No Meningismus. Cardiovascular: Regular rate and rhythm with a normal S1 and S2. No gallops, murmurs, or rubs. Normal PMI, no JVD. No pulse deficits. Abdomen/GI: Soft, non-tender, with normal bowel sounds. No distension or tympany. No guarding or rebound. No evidence of tenderness throughout. Back: No spinal tenderness. No costovertebral tenderness. Full range of motion. Skin: Warm, dry with normal turgor. Normal color with no rashes, no lesions, and no evidence of cellulitis. MS/ Extremity: Pulses equal, no cyanosis. Neurovascular intact. Full, normal range of motion. Neuro: Awake and alert, GCS 15, oriented to person, place, time, and situation. Motor strength 5/5 in all extremities. Sensory grossly intact. Normal gait. 13:28 ENT: TM's: are normal, Posterior pharynx: erythema, that is mild, pooling of secretions, that are mild, 13:28 Respiratory: the patient does not display signs of respiratory distress, Respirations: normal, Breath sounds: decreased breath sounds, that are mild, are scattered, Respiratory rate: 20 Vital Signs: 13:29 BP 156 / 102; Pulse 96; Resp 20; Temp 98.7(O); Pulse Ox 98% on R/A; Height 5 ft. 6 in. ll1 ; Pain 10/10; 14:31 BP 140 / 81; Pulse 88; Resp 17; Pulse Ox 99% on R/A; rs5 13:29 Pain Scale: Adult ll1 MDM: 13:21 Patient medically screened. [facility] 14:20 Differential diagnosis: viral Infection, URI, bronchitis, pneumonia. Data reviewed: [facility] vital signs, nurses notes, lab test result(s), radiologic studies, plain films. I considered the following discharge prescriptions or medication management in the emergency department Medications were administered in the Emergency Department. See MAR. Independent interpretation of the following test(s) in the Emergency Department X-Ray: My interpretation is no acute findings. Care significantly affected by the following chronic conditions: Diabetes. Counseling: I had a detailed discussion with the patient and/or guardian regarding the historical points, exam findings, and any diagnostic results supporting the discharge/admit diagnosis, to return to the emergency department if symptoms worsen or persist or if there are any questions or concerns that arise at home. Response to treatment: the patient's symptoms have mildly improved after treatment. 12/03 13:27 Order name: SARS RAPID; Complete Time: 14:18 [facility] 12/03 13:27 Order name: Flu; Complete Time: 14:18 [facility] 12/03 13:27 Order name: Strep [facility] 12/03 14:15 Order name: Throat Culture [facility] 12/03 13:27 Order name: XRAY Chest (1 view); Complete Time: 13:52 [facility] Administered Medications: 13:33 Drug: DuoNeb Nebulize (2.5 mg - 0.5 mg) 3 ml Nebulizer once Route: Nebulizer; rs5 14:41 Follow up: Response: No adverse reaction rs5 Disposition: 19:29 I reviewed the patient's care provided by the Advanced Practice Provider and agree with sd2 the diagnosis and treatment plan. Disposition Summary: 12/04/23 14:21 Discharge Ordered Notes: Location: Home [facility] Problem: new [facility] Symptoms: are unchanged [facility] Condition: Stable [facility] Diagnosis - Acute upper respiratory infection, unspecified [facility] Followup: [facility] - With: Private Physician - When: 2 - 3 days - Reason: Recheck today's complaints Discharge Instructions: - Discharge Summary Sheet [facility] - Upper Respiratory Infection, Adult [facility] - Viral Respiratory Infection [facility] Forms: - Medication Reconciliation Form [facility] - Patient Portal Instructions [facility] - Leadership Thank You Letter [facility] - Work release form rs5 Prescriptions: - albuterol sulfate 90 mcg/actuation Inhalation HFA Aerosol Inhaler - inhale 2 inhalation INHALATION route every 4 to 6 hours As needed; 1 Each; [facility] Refills: 0, Product Selection Permitted - Tessalon Perles 100 mg Oral Capsule - take 1 capsule ORAL route every 8 hours As needed; 15 capsule; Refills: 0, jh7 Product Selection Permitted Signatures: Dispatcher [employer] EDBetsey Dc RN RN ll1 Meri Dave, BAKERY SUPERVISOR BAKERY SUPERVISOR 7 Ramya Judd MD MD sd2 Alin Baptiste RN RN rs5 Corrections: (The following items were deleted from the chart) 13:27 13:27 Chest Single View+RAD.RAD.BRZ ordered. EDMS EDMS 13: 13:28 SARS-COV-2 Antigen Rapid+I.LAB.BRZ ordered. EDMS EDMS 13: 13:28 Influenza Screen (A \T\ B)+BA.LAB.BRZ ordered. EDMS EDMS 13: 13:28 Group A Streptococcus Rapid Sc+BA.LAB.BRZ ordered. EDMS EDMS 13: 13:28 Allergies: Benadryl; ll1 ll1
[2023-12-08 14:38] VITALS: BP 156/102; TEMP 98.7; O2SAT 98
== END 2023-12-04 14:46 | disposition home or self-care (01) ==
LOC: ER 13:14
DX: J06.9 Acute upper respiratory infection, unspecified (principal); J45.909 Unspecified asthma, uncomplicated; E11.9 Type 2 diabetes mellitus without complications; F17.210 Nicotine dependence, cigarettes, uncomplicated; Z88.0 Allergy status to penicillin; Z11.52 Encounter for screening for COVID-19
CPT/HCPCS: 87070; 36415; 87081; 87804 ×2; 71045; 94640; 99284; 87811; J7613; J7644

== ENCOUNTER 2024-01-02 19:36 | Inpatient (IN) | payer BC, MEDICARE ==
[2024-01-02] MEDS ORDERED: MAGNESIUM SULFATE 1 gm IVPB 1 GM/100 ML BAG IV ONE (19:38)
[2024-01-02] MEDS ORDERED: ALBUTEROL 2.5 MG/3 ML NEB SOL ONE ×2 (19:50→20:15)
[2024-01-02] MEDS ORDERED: IPRATROPIUM BROM 0.5MG/2.5ML ONE (19:50)
[2024-01-02 20:00] LABS: Absolute Monocytes 0.8 K/uL (0.1-1.3); Absolute Neutrophil 14.7 K/uL (1.8-8.0); Basophils % 0.2 % (0-1.3); Hematocrit 34.6 % (36.0-45.0); Lymphocytes % 11.2 % (15.3-44.8); MCHC 31.8 g/dL (32.0-36.0); MCV 78.5 fL (80-100); MPV 8.9 fL (7.6-11.3); Monocytes % 4.8 % (3.3-12.3); Neutrophils % 83.8 % (41.7-73.7); Nucleated Red Blood Cells % 0.1 % (0-0); Platelets 367 thou/uL (152-406); Red Cell Distribution Width 16.9 % (12.1-15.2)
[2024-01-02 20:05] LABS: PT Prothrombin Time 11.4 SECONDS (9.4-12.5); Protime INR 1.02
[2024-01-02 20:20] LABS: SARS-CoV-2 Antigen CONTROL BLUE LINE VIS/BG OK; SARS-CoV-2 Antigen Rapid Res Negative (Negative)
[2024-01-02 20:30] LABS: Anion Gap 12.1 mEq/L (5.0-15.0); Potassium 4.1 mEq/L (3.5-5.1); Troponin High Sensitivity 3.4 pg/mL (<58.9)
--- NOTE | 2024-01-02 20:47 | RAD REPORT ---
EXAM DESCRIPTION: RADChest Single View01/02/2024 8:26 pm CLINICAL HISTORY: COPD COMPARISON: Chest Single View dated 12/04/2023; Chest Single View dated 08/06/2023; Chest Single View dated 04/09/2023; Chest Single View dated 07/01/2022; Chest For Pe Angio dated 08/06/2023 TECHNIQUE: Portable AP view of the chest. FINDINGS: Mild right more than left basilar fluffy opacities and central interstitial prominence. N o pneumothorax or effusion. The cardiomediastinal contours are unremarkable. IMPRESSION: Findings suggesting early pulmonary edema, less likely bibasilar pneumonitis.
--- NOTE | 2024-01-02 20:57 | ER ---
Nurse's Notes [facility] Name: April Ford Age: 48 yrs Sex: Female : 1975 Arrival Date: 01/02/2024 Time: 19:36 Bed 3 Private MD: Diagnosis: Community-acquired pneumonia;Sepsis Presentation: 01/01 19:30 Chief complaint: EMS states: Shortness of breath oxygen saturation at 80% on room air. 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 Coronavirus screen: Client denies travel out of the [place] in the last 14 days. shortness of breath, Client presents with at least one sign or symptom that may indicate coronavirus-19. Ebola Screen: Patient negative for fever greater than or equal to 101.5 degrees Fahrenheit, and additional compatible Ebola Virus Disease symptoms Patient denies exposure to infectious person. Patient denies travel to an Ebola-affected area in the 21 days before illness onset. No symptoms or risks identified at this time. Initial Sepsis Screen: Does the patient meet any 2 criteria? RR > 20 per min. HR > 90 bpm. Yes Does the patient have a suspected source of infection? No. Patient's initial sepsis screen is negative. Risk Assessment: Do you want to hurt yourself or someone else? Patient reports no desire to harm self or others. Onset of symptoms was January 02, 2024. Care prior to arrival: Assisted ventilation, Medication(s) given: Albuterol Neb x 1, Atrovent Neb x 1, Solumedrol. Activity prior to arrival: loss of consciousness. Mechanism of Injury: No Mechanism of Injury. Transition of care: patient was not received from another setting of care. 19:30 Method Of Arrival: EMS: [facility] vc1 19:30 Acuity: BALDEMAR 3 vc1 19:30 Care prior to arrival: IV initiated. 20 GA, in the left antecubital area, Med neb vc1 given. Oxygen administered. via a non-rebreather mask, via AMBU bag. Triage Assessment: 19:48 General: Appears distressed, uncomfortable, obese, Behavior is anxious. Pain: Denies vc1 pain. EENT: No deficits noted. No signs and/or symptoms were reported regarding the EENT system. Neuro: Level of Consciousness is awake, alert, obeys commands, Oriented to person, place, time, situation, Appropriate for age. Cardiovascular: No deficits noted. Heart tones S1 S2 present Rhythm is sinus tachycardia with PACs. Respiratory: Reports shortness of breath at rest labored breathing Airway is patent Respiratory effort is even, labored, Respiratory pattern is symmetrical, tachypnea Breath sounds with rhonchi Breath sounds with wheezes the patient has moderate shortness of breath. GI: Abdomen is round non-distended, Bowel sounds present X 4 quads. : No deficits noted. No signs and/or symptoms were reported regarding the genitourinary system. Derm: Skin is diaphoretic. Musculoskeletal: Circulation, motion, and sensation intact. Range of motion: intact in all extremities. SUPPLEMENTAL NURSE: 19:46 LMP N/A - tubal ligation, Not vc1 Historical: - Allergies: 19:43 PENICILLINS; vc1 - Home Meds: 19:43 Albuterol Inhl [Active]; vc1 - PMHx: 19:43 Anxiety; Asthma; chronic back pain; diabetes mellitus; Heart block; Migraines; Panic vc1 Attacks; - PSHx: 19:43 Ankle-Left; Ligation of fallopian tube; vc1 - Immunization history:: Adult Immunizations unknown. - Infectious Disease History:: Denies. - Social history:: Smoking status: Patient reports the use of cigarette tobacco products. Screenin:44 [facility] ED Fall Risk Assessment (Adult) History of falling in the last 3 months, vc1 including since admission No falls in past 3 months (0 pts) Confusion or Disorientation No (0 pts) Intoxicated or Sedated No (0 pts) Impaired Gait No (0 pts) Mobility Assist Device Used No (0 pt) Altered Elimination No (0 pt) Score/Fall Risk Level 0 - 2 = Low Risk Oriented to surroundings, Maintained a safe environment, Educated pt \T\ family on fall prevention, incl call for assistance when getting out of bed. Abuse screen: Denies threats or abuse. Nutritional screening: No deficits noted. Tuberculosis screening: No symptoms or risk factors identified. Assessment: 19:50 General: See triage assessment. vc1 20:49 Reassessment: Patient appears in no apparent distress at this time. Patient is alert, jb4 oriented x 3, equal unlabored respirations, skin warm/dry/pink. Pt reports pain in her lungs when coughing and a burning in the pelvic region when coughing Patient states feeling better. Patient states symptoms have improved. 22:46 Reassessment: Patient appears in no apparent distress at this time. No changes from vc1 previously documented assessment. Patient and/or family updated on plan of care and expected duration. Pain level reassessed. Patient is alert, oriented x 3, equal unlabored respirations, skin warm/dry/pink. 01/02 00:13 Reassessment: Patient appears in no apparent distress at this time. No changes from vc1 previously documented assessment. Patient and/or family updated on plan of care and expected duration. Pain level reassessed. Patient is alert, oriented x 3, equal unlabored respirations, skin warm/dry/pink. Vital Signs: 01/01 19:30 BP 178 / 98; Pulse 115; Resp 36; Temp 99; Pulse Ox 100% on Non-rebreather mask; Weight vc1 107.5 kg; Height 5 ft. 6 in. ; 19:54 BP 107 / 90; Pulse 104; Resp 22; Pulse Ox 100% on Nebulizer Mask; vc1 20:54 BP 154 / 82; Pulse 117; Resp 18; Pulse Ox 98% on R/A; jb4 22:46 BP 130 / 77; Pulse 90; Resp 22; Pulse Ox 97% ; vc1 01/02 00:13 BP 129 / 76; Pulse 81; Resp 14; Pulse Ox 98% ; vc1 01/01 19:30 Body Mass Index 38.25 (107.50 kg, 167.64 cm) vc1 ED Course: 01/01 19:30 Maintain EMS IV. Dressing intact. Good blood return noted. Site clean \T\ dry. Gauge \T\ vc 1 site: 20G Left AC. Flushed with 10 mL NS. 19:37 Patient arrived in ED. jr12 19:37 Anna Lara, CATA is Primary Nurse. vc1 19:39 Jil San MD is Attending Physician. gb1 19:43 Triage completed. vc1 19:46 Patient has correct armband on for positive identification. Bed in low position. Call vc1 light in reach. Provided Education on: Smoking cessation. quality assurance monitor final on. Pulse ox on. NIBP on. 19:51 Arm band placed on right wrist. vc1 20:00 Attending Physician role handed off by Jil San MD rt 20:00 Tj Altman MD is Attending Physician. rt 20:28 XRAY Chest (1 view) In Process Unspecified. EDMS 20:56 Sushant Monae MD is Hospitalizing Provider. rt 21:32 Blood Culture Adult (2) Sent. go2 21:32 Lactate w/ 2H reflex if indic. Sent. go2 Administered Medications: 19:51 Drug: Magnesium Sulfate IVPB 1 grams IVPB once over 1 hrs Route: IVPB; Infused Over: 30 vc1 mins; Site: left antecubital; 21:33 Follow up: IV Status: Completed infusion go2 19:51 Drug: DuoNeb Nebulize (3:1) (2.5 mg - 0.5 mg) 3 ml Nebulizer once Route: Nebulizer; vc1 22:50 Follow up: Response: No adverse reaction; Marked relief of symptoms vc1 21:32 Drug: LevaQUIN IVPB 750 mg IVPB once Route: IVPB; Site: right antecubital; go2 22:00 Follow up: IV Status: Completed infusion; IV Intake: 100ml vc1 21:32 Drug: NS 0.9% IV 1000 ml IV at 1 bolus Per protocol; 1000 mL bolus Route: IV; Rate: 1 go2 bolus; Site: right antecubital; 22:30 Follow up: IV Status: Completed infusion; IV Intake: 1000ml vc1 21:32 Drug: morphine IVP or IV 4 mg IVP once over 4 mins Route: IVP; Infused Over: 4 mins; go2 Site: right antecubital; 21:36 Follow up: Response: No adverse reaction go2 21:32 Drug: Ondansetron IVP 4 mg IVP once; over 2 minutes Route: IVP; Site: right antecubital;go2 21:36 Follow up: Response: No adverse reaction go2 Medication: 19:50 VIS not applicable for this client. vc1 Intake: 22:00 IV: 100ml; Total: 100ml. vc1 22:30 IV: 1000ml; Total: 1100ml. vc1 Outcome: 20:57 Decision to Hospitalize by Provider. rt 01/02 00:43 Patient left the ED. jb4 Signatures: Dispatcher [employer] EDMO Francisco J Cespedes RN RN jb4 Anna Lara RN RN vc1 Tj Altman MD MD rt Jil San MD MD gb1 Nasima Avelar jr12 Jennifer Chacko, RN RN go2
--- NOTE | 2024-01-02 20:57 | EDPHYS ---
Physician Documentation [facility] Name: April Ford Age: 48 yrs Sex: Female : 1975 Arrival Date: 01/02/2024 Time: 19:36 Bed 3 Private MD: ED Physician Tj Altman HPI: 01/01 19:42 This 48 yrs old Female presents to ER via Unassigned with complaints of SOB. gb1 19:47 48-year-old female with history of COPD exacerbation who still smokes at home was gb1 recently diagnosed with bronchitis. She states that she had wheezing and difficulty with shortness of breath after smoking a cigarette. Patient states that she tested negative for COVID yesterday. She denies fever or chills but states that it is more difficult to breathe when she coughs. She denies any chest pain.. 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 - Infectious Disease History:: Denies. - Social history:: Smoking status: Patient reports the use of cigarette tobacco products. ROS: 20:37 Constitutional: Negative for fever, chills, and weight loss, Cardiovascular: Negative rt for chest pain, palpitations, and edema, Abdomen/GI: Negative for abdominal pain, nausea, vomiting, diarrhea, and constipation, MS/Extremity: Negative for injury and deformity, Skin: Negative for injury, rash, and discoloration, Neuro: Negative for headache, weakness, numbness, tingling, and seizure, 20:37 Respiratory: Positive for shortness of breath, wheezing, Exam: 19:42 Constitutional: This is a well developed, well nourished patient who is awake, alert, gb1 and in no acute distress. Head/Face: Normocephalic, atraumatic. Eyes: Pupils equal round and reactive to light, extra-ocular motions intact. Lids and lashes normal. Conjunctiva and sclera are non-icteric and not injected. Cornea within normal limits. Periorbital areas with no swelling, redness, or edema. ENT: Nares patent. No nasal discharge, no septal abnormalities noted. Tympanic membranes are normal and external auditory canals are clear. Oropharynx with no redness, swelling, or masses, exudates, or evidence of obstruction, uvula midline. Mucous membranes moist. Neck: Trachea midline, no thyromegaly or masses palpated, and no cervical lymphadenopathy. Supple, full range of motion without nuchal rigidity, or vertebral point tenderness. No Meningismus. Chest/axilla: Normal chest wall appearance and motion. Nontender with no deformity. No lesions are appreciated. Cardiovascular: Tachycardic rate and rhythm with a normal S1 and S2. No gallops, murmurs, or rubs. Normal PMI, no JVD. No pulse deficits. Respiratory: Lungs have equal breath sounds bilaterally, patient with increased respiratory drive with retractions and positive expiratory wheezes noted. +Increased work of breathing, with retractions and nasal flaring. Abdomen/GI: Soft, non-tender, with normal bowel sounds. No distension or tympany. No guarding or rebound. No evidence of tenderness throughout. Back: No spinal tenderness. No costovertebral tenderness. Full range of motion. Skin: Warm, dry with normal turgor. Normal color with no rashes, no lesions, and no evidence of cellulitis. MS/ Extremity: Pulses equal, no cyanosis. Neurovascular intact. Full, normal range of motion. Neuro: Awake and alert, GCS 15, oriented to person, place, time, and situation. Cranial nerves II-XII grossly intact. Motor strength 5/5 in all extremities. Sensory grossly intact. Cerebellar exam normal. Normal gait. 20:36 ECG was reviewed by the Attending Physician. rt Vital Signs: 19:30 BP 178 / 98; Pulse 115; Resp 36; Temp 99; Pulse Ox 100% on Non-rebreather mask; Weight vc1 107.5 kg; Height 5 ft. 6 in. ; 19:54 BP 107 / 90; Pulse 104; Resp 22; Pulse Ox 100% on Nebulizer Mask; vc1 20:54 BP 154 / 82; Pulse 117; Resp 18; Pulse Ox 98% on R/A; jb4 22:46 BP 130 / 77; Pulse 90; Resp 22; Pulse Ox 97% ; vc1 01/02 00:13 BP 129 / 76; Pulse 81; Resp 14; Pulse Ox 98% ; vc1 01/01 19:30 Body Mass Index 38.25 (107.50 kg, 167.64 cm) vc1 MDM: 01/01 19:39 Patient medically screened. gb1 19:42 Differential Diagnosis COPD exacerbation, CHF with pulmonary edema, acute coronary gb1 syndrome. Data reviewed: vital signs, nurses notes, EKG. ED course: 48-year-old female here with cough and shortness of breath that started at home after smoking a cigarette. Patient states that she has a history of of recent bronchitis. She received Solu-Medrol and route as well as DuoNeb. Patient was continued here on CPAP and received magnesium IV as well. I recommend cardiac workup to r/o ACS concomitantly with concern for PNA vs COPD exac, vs CHF exac. . 19:57 ED course: Patient's clinical care pending chest x-ray, lab results transition to Dr. esteban Altman at approximately 1957.. 20:57 Consideration of Admission/Observation Patient was admitted/placed on observation. rt Management of patient was discussed with the following: Hospitalist: Agrees to admit. I considered the following discharge prescriptions or medication management in the emergency department Medications were administered in the Emergency Department. See MAR. Independent interpretation of the following test(s) in the Emergency Department X-Ray: My interpretation is Right lower lung pneumonia seen on interpretation of x-ray images. Care significantly affected by the following chronic conditions: Chronic Obstructive Pulmonary Disease. Counseling: I had a detailed discussion with the patient and/or guardian regarding the historical points, exam findings, and any diagnostic results supporting the discharge/admit diagnosis, lab results, radiology results, the need for further work-up and treatment in the hospital, smoking cessation. Response to treatment: the patient's symptoms have mildly improved after treatment. 20:58 ED course: Assumed care at shift change. Patient's initial presentation was thought to rt be due to COPD exacerbation. Once right lower lung pneumonia and leukocytosis were found on diagnostic studies, lactate, blood cultures and antibiotics were ordered, patient to be admitted for further care.. 01/01 19:41 Order name: Basic Metabolic Panel; Complete Time: 20:31 [facility] 01/01 19:41 Order name: CBC with Diff; Complete Time: 20:31 gb1 01/01 19:41 Order name: NT PRO-BNP; Complete Time: 20:31 gb1 01/01 19:41 Order name: PT-INR gb1 01/01 19:41 Order name: Troponin HS; Complete Time: 20:31 gb1 01/01 19:41 Order name: SARS RAPID; Complete Time: 20:31 gb1 01/01 20:54 Order name: Blood Culture Adult (2) rt 01/01 20:54 Order name: Lactate w/ 2H reflex if indic. rt 01/01 21:04 Order name: PTT, Activated Partial Thromb EDMS 01/01 21:39 Order name: Urinalysis w/ reflexes EDMS 01/01 21:39 Order name: CBC with Automated Diff EDMS 01/01 21:39 Order name: CBC with Automated Diff EDMS 01/01 21:39 Order name: Comprehensive Metabolic Panel EDMS 01/01 21:39 Order name: Comprehensive Metabolic Panel EDMS 01/02 00:14 Order name: Ghost Lactate-NO COLLECT Timer EDMS 01/01 19:41 Order name: XRAY Chest (1 view); Complete Time: 20:48 gb1 01/01 19:41 Order name: Cardiac monitoring; Complete Time: 19:51 gb1 01/01 19:41 Order name: EKG - Nurse/Tech; Complete Time: 20:49 gb1 01/01 19:41 Order name: IV Saline Lock; Complete Time: 19:51 gb1 01/01 19:41 Order name: Labs collected and sent; Complete Time: 19:51 gb1 01/01 19:41 Order name: O2 Per Protocol; Complete Time: 19:51 gb1 01/01 19:41 Order name: O2 Sat Monitoring; Complete Time: 19:51 gb1 01/01 20:54 Order name: IV Saline Lock - Large Bore; Complete Time: 21:33 rt 01/01 20:54 Order name: Vital Signs; Complete Time: 21:33 rt EC:36 Rate is 93 beats/min. Rhythm is regular, Normal Sinus Rhythm with No ectopy. QRS [place] rt is Normal. [place] interval is normal. QRS interval is normal. QT interval is normal. No Q waves. No ST changes noted. Interpreted by me. Administered Medications: 19:51 Drug: Magnesium Sulfate IVPB 1 grams IVPB once over 1 hrs Route: IVPB; Infused Over: 30 vc1 mins; Site: left antecubital; 21:33 Follow up: IV Status: Completed infusion go2 19:51 Drug: DuoNeb Nebulize (3:1) (2.5 mg - 0.5 mg) 3 ml Nebulizer once Route: Nebulizer; vc1 22:50 Follow up: Response: No adverse reaction; Marked relief of symptoms vc1 21:32 Drug: LevaQUIN IVPB 750 mg IVPB once Route: IVPB; Site: right antecubital; go2 22:00 Follow up: IV Status: Completed infusion; IV Intake: 100ml vc1 21:32 Drug: NS 0.9% IV 1000 ml IV at 1 bolus Per protocol; 1000 mL bolus Route: IV; Rate: 1 go2 bolus; Site: right antecubital; 22:30 Follow up: IV Status: Completed infusion; IV Intake: 1000ml vc1 21:32 Drug: morphine IVP or IV 4 mg IVP once over 4 mins Route: IVP; Infused Over: 4 mins; go2 Site: right antecubital; 21:36 Follow up: Response: No adverse reaction go2 21:32 Drug: Ondansetron IVP 4 mg IVP once; over 2 minutes Route: IVP; Site: right antecubital;go2 21:36 Follow up: Response: No adverse reaction go2 Disposition Summary: 01/02/24 20:57 Hospitalization Ordered Notes: Hospitalization Status: Inpatient Admission rt Provider: Sushant Monae rt [facility] ([facility]) rt Condition: Stable rt Problem: new rt Symptoms: have improved rt Bed/Room Type: Standard rt Room Assignment: 408(01/02/24 23:16) Diagnosis - Community-acquired pneumonia rt - Sepsis rt Forms: - Medication Reconciliation Form rt - SBAR form rt - Leadership Thank You Letter rt Signatures: Dispatcher [employer] Shari Barton RN RN ss Anna Lara RN RN vc1 Tj Altman MD MD rt Jil San MD MD gb1 Jennifer Chacko RN RN go2 Corrections: (The following items were deleted from the chart) 19:41 19:41 BASIC METABOLIC PANEL+C.LAB.BRZ ordered. EDMS EDMS 19:41 19:41 CBC+H.LAB.BRZ ordered. EDMS EDMS 19:41 19:41 PROBNP+C.LAB.BRZ ordered. EDMS EDMS 19:41 19:41 PROTIME (+INR)+COAG.LAB.BRZ ordered. EDMS EDMS 19:41 19:41 Troponin High Sensitivity+C.LAB.BRZ ordered. EDMS EDMS 19:41 19:41 SARS-COV-2 Antigen Rapid+I.LAB.BRZ ordered. EDMS EDMS 19:41 19:41 Chest Single View+RAD.RAD.BRZ ordered. EDMS EDMS 20:54 20:54 BLOOD CULTURE*+BA.LAB.BRZ ordered. EDMS EDMS 20:54 20:54 LACTATE+C.LAB.BRZ ordered. EDMS EDMS 21:04 20:54 PTT, ACTIVATED+COAG.LAB.BRZ ordered. EDMS EDMS 23:16 20:57 rt ss
[2024-01-02] MEDS ORDERED: ONDANSETRON 4 MG/2 ML VIAL ONE (21:05)
[2024-01-02] MEDS ORDERED: MORPHINE 4 MG/ML SYR ONE (21:06)
[2024-01-02] MEDS ORDERED: Levofloxacin 750mg IV 750 MG/150 ML BAG IV ONE (21:07)
[2024-01-02] MEDS ORDERED: NA CHLORIDE 0.9% 1,000 ML ONE (21:07)
[2024-01-02 21:09] LABS: PTT, Activated Partial Thromb 30.3 SECONDS (24.3-36.9)
[2024-01-02] MEDS ORDERED: IPRATROPIUM BROM 0.5MG/2.5ML NEB PRN (21:33)
[2024-01-02] MEDS ORDERED: ALBUTEROL 2.5 MG/3 ML NEB SOL NEB PRN (21:33)
[2024-01-02] MEDS ORDERED: ONDANSETRON 4 MG/2 ML VIAL IV PRN (21:33)
[2024-01-02] MEDS ORDERED: ACETAMINOPHEN 325 MG TABLET PO PRN (21:33)
--- NOTE | 2024-01-02 21:33 | P.HP ---
Certification for Inpatient Patient admitted to: Inpatient With expected LOS: >2 Midnights Practitioner: I am a practitioner with admitting privileges, knowledge of patient current condition, hospital course, and medical plan of care. Services: Services provided to patient in accordance with Admission requirements found in Title 42 Section 412.3 of the Code of Federal Regulations Patient History Date of Service: 01/03/24 Reason for admission: SOB History of Present Illness: 48 yrs old Female with past medical history of allergies and COPD brought to ER with shortness of breath. She was recently diagnosed with bronchitis associated with some wheezing and difficulty breathing. Denies any chest pain. No fever or chills. She states that she has wheezing and difficulty in breathing after smoking etc. associated with shortness of breath even with minimal exertions. Associated with cough with mucoid expectoration. Denies any sick contacts. Tested negative for COVID yesterday. Denies any nausea vomiting or diarrhea Patient was assessed in the ER and is admitted for further management of pneumonia and COPD exacerbation Allergies diphenhydramine [From Benadryl] Allergy (Verified 01/03/24 03:03) Unknown Penicillins Allergy (Verified 01/03/24 03:03) Rash Home medications list reviewed: Yes Home Medications: NK [No Home Meds] 07/10/14 - Past Medical/Surgical History Diabetic: No Past Medical History: Reviewed- Non-Contributory -: anxiety Past Surgical History: Reviewed- Non-Contributory -: L. ankle repair -: tubal - Family History Mother -: Heart disease - Social History Smoking Status: Former smoker Alcohol use: No CD- Drugs: No Caffeine use: Yes Review of Systems 10-point ROS is otherwise unremarkable Physical Examination - Vital Signs Temperature: 97.7 F Blood Pressure: 132/68 Pulse: 84 Respirations: 22 Pulse Ox (%): 94 - Physical Exam General: Alert, Oriented x3, Mild distress, Obese HEENT: Atraumatic, Normocephalic Neck: Supple, 2+ carotid pulse no bruit Respiratory: Diminished, Crackles/rales, Expiratory wheezes Cardiovascular: Normal pulses, Regular rate/rhythm, Normal S1 S2 Capillary refill: <2 Seconds Gastrointestinal: Soft and benign, W/out hepatosplenomegaly Musculoskeletal: No clubbing, No swelling Integumentary: No rashes, No breakdown Neurological: Normal speech, Normal strength at 5/5 x4 extr, Cranial nerves 3-12 intact, Normal reflexes 2+ Lymphatics: No axilla or inguinal lymphadenopathy - Studies Laboratory Data (last 24 hrs) 01/02/24 01/02/24 01/02/24 20:54 19:49 19:49 WBC 17.50 H Hgb 11.0 L Hct 34.6 L Plt Count 367 PT 11.4 INR 1.02 APTT Cancelled 30.3 Sodium Potassium BUN Creatinine Glucose 01/02/24 19:49 WBC Hgb Hct Plt Count PT INR APTT Sodium 139 Potassium 4.1 BUN 15 Creatinine 1.41 H Glucose 257 H Assessment and Plan - Plan Bibasilar pneumonia Started on IV antibiotic Monitor closely on telemetry Allergic to penicillin Started on levofloxacin Antitussives Pain control X-ray findings noted COPD with mild exacerbation Monitor closely on telemetry Started on bronchodilators Oxygen supplementation Chest x-ray findings noted Pulmonary edema X-ray suggestive of pulmonary edema as well Started on mild dose of Lasix Will get an echocardiogram Obesity Advise lifestyle changes GI/DVT prophylaxis Advanced directive full code Discharge Plan: Home Plan to discharge in: 48 Hours - Advance Directives Does patient have a Living Will: No Does patient have a Durable POA for Healthcare: No - Code Status/Comfort Care Code Status: Full Code Time Spent Managing Pts Care (In Minutes): 48
[2024-01-03 01:15] VITALS: BMI 37.8
[2024-01-03] MEDS ORDERED: HYDROCODONE/APAP 5/325 MG TAB PO PRN (02:40)
[2024-01-03] MEDS: KETOROLAC 30 MG/ML INJ IV PRN (03:03)
[2024-01-03] MEDS: NA CHLORIDE 0.9% 1,000 ML IV SCH (03:04)
[2024-01-03 07:34] LABS: Absolute Monocytes 0.7 K/uL (0.1-1.3); Absolute Neutrophil 11.1 K/uL (1.8-8.0); Basophils % 0.2 % (0-1.3); Eosinophils % 0.1 % (0-4.4); Hematocrit 30.9 % (36.0-45.0); Hemoglobin 9.6 g/dL (12.0-15.0); Lymphocytes % 14.5 % (15.3-44.8); MCH 24.8 pg (27.0-35.0); MCHC 31.2 g/dL (32.0-36.0); MCV 79.5 fL (80-100); MPV 9.2 fL (7.6-11.3); Monocytes % 4.8 % (3.3-12.3); Neutrophils % 80.4 % (41.7-73.7); Platelets 279 thou/uL (152-406); RBC Red Blood Cell Count 3.89 M/uL (3.86-4.86); Red Cell Distribution Width 16.8 % (12.1-15.2)
[2024-01-03 07:44] LABS: ALT/SGPT 36 U/L (13-56); AST/SGOT 20 U/L (15-37); Albumin 2.9 g/dL (3.4-5.0); Albumin/Globulin Ratio 0.7 (1.1-1.8); Alkaline Phosphatase 85 U/L (45-117); Anion Gap 10.4 mEq/L (5.0-15.0); BUN Blood Urea Nitrogen 18 mg/dL (7-18); Bicarbonate 24 mEq/L (21-32); Globulin 4.1 g/dL (2.3-3.5); Glomerular Filtration Rate 65 ml/min (=/>90); Glucose Level 124 mg/dL (74-106); Potassium 4.4 mEq/L (3.5-5.1); Sodium Level 140 mEq/L (136-145)
[2024-01-03] MEDS: ENOXAPARIN 40 MG/0.4 ML SQ SCH (07:46)
[2024-01-03] MEDS: MORPHINE 2 MG/ML SYR IV PRN (07:46)
[2024-01-03 07:55] LABS: Bilirubin Total < 0.2 mg/dL (0.2-1.0)
--- NOTE | 2024-01-03 07:56 | P.PN ---
Date of Service: 01/03/24 subjective Admitted pneumonia /COPD exacerbation Review of Systems 10-point ROS is otherwise unremarkable Physical Examination - Vital Signs Reviewed - Physical Exam General: Alert, Oriented x3, Mild distress, Obese HEENT: Atraumatic, Normocephalic Neck: Supple, 2+ carotid pulse no bruit Respiratory: Diminished, Crackles/rales, Expiratory wheezes Cardiovascular: Normal pulses, Regular rate/rhythm, Normal S1 S2 Capillary refill: <2 Seconds Gastrointestinal: Soft and benign, W/out hepatosplenomegaly Musculoskeletal: No clubbing, No swelling Integumentary: No rashes, No breakdown Neurological: Normal speech, Normal strength at 5/5 x4 extr, Cranial nerves 3-12 intact, Normal reflexes 2+ Lymphatics: No axilla or inguinal lymphadenopathy sessment and Plan - Plan Sepsis without shock improved Acidosis Bibasilar pneumonia Started on IV antibiotic Monitor closely on telemetry Allergic to penicillin Started on levofloxacin-discharge home on 11 days of Levaquin Antitussives Pain control X-ray findings noted Infectious disease follow COPD with mild exacerbation Tobacco use Educated on cessation Monitor closely on telemetry Started on bronchodilators Oxygen supplementation Chest x-ray findings noted Pulmonary edema X-ray suggestive of pulmonary edema as well Started on mild dose of Lasix Will get an echocardiogram Obesity Advise lifestyle changes GI/DVT prophylaxis Advanced directive full code Discharge Plan: Home Plan to discharge in: 48 Hours - Advance Directives Does patient have a Living Will: No Does patient have a Durable POA for Healthcare: No - Code Status/Comfort Care Code Status: Full Code Time Spent Managing Pts Care (In Minutes): 35
[2024-01-03 09:05] LABS: Specific Gravity > 1.030 (1.005-1.030); Sqamous Epithelial <5 /HPF (None Seen); Urine Bacteria >50 /HPF (<20); Urine Bilirubin NEGATIVE (Negative); Urine Blood Negative (Negative); Urine Clarity Extremely Turbid (Clear); Urine Color Yellow (Yellow); Urine Culture Reflex Order REFLEXED; Urine Glucose NEGATIVE (Negative); Urine Ketones NEGATIVE (Negative); Urine Micro Reflex YN NO BILL MICROSCOPIC; Urine Mucus 3+ /HPF (None Seen); Urine Nitrite 2+ (Negative); Urine Protein TRACE (Negative); Urine RBC <5 /HPF (None Seen); Urine Urobilinogen Normal (Normal); Urine WBC 20-50 /HPF (<5)
[2024-01-03] MEDS: FUROSEMIDE 40 MG/4 ML VIAL IV SCH (09:22)
[2024-01-03] MEDS: LEVALBUTEROL 1.25 MG/3 ML NEB NEB ONE (09:30)
[2024-01-03] MEDS: clonazePAM 1 MG TAB PO ONE (09:41)
[2024-01-03 09:52] LABS: Barbiturates NEGATIVE (NEGATIVE); Benzodiazepines NEGATIVE (NEGATIVE); Cocaine NEGATIVE (NEGATIVE); METHAMPHETAM NEGATIVE (NEGATIVE); Methadone NEGATIVE (NEGATIVE); Opiates POSITIVE (NEGATIVE); Phencyclidine NEGATIVE (NEGATIVE); THC Cannibis NEGATIVE (NEGATIVE)
--- NOTE | 2024-01-03 12:06 | CON ---
History Of Present Illness: This is a 48-year-old female. I was consulted for evaluation of pneumon ia. Patient has significant past medical history of allergies and COPD, tobacco positive, pack and a half for several years now, smoking only 4 cigarettes a day. Patient denies any other problems at t his time, feeling slightly better since yesterday. Denies any nausea, vomiting, chest pain, abdomina l pain, constipation, or diarrhea. Past Medical History: As per HPI. Past Surgical History: Left ankle repair after skating accident and tubal ligation. Social History: Tobacco positive. Alcohol negative. Family History: Noncontributory. Medications: Levaquin. See MARs for other medications. Allergies: PENICILLIN AND DIPHENHYDRAMINE. Review of Systems: 10-point review was performed. Physical Examination: General: This is a 48-year-old female, lying in bed, not in any acute cardiopulmonary distress. Vital Signs: Temperature 96, pulse 79, respirations 18, blood pressure 129/61. HEENT: Unremarkable. Neck: Supple. Lungs: Basal crackles. Heart: S1, S2. Regular. Abdomen: Soft, nontender. Bowel sounds present. Extremity: No edema. Laboratory Data: Shows WBC 13.8 down from 17.5, hemoglobin 9.6, platelets are 279. Chemistry shows BUN of 18, creatinine 1, lactic acid to 3.8 down to 2.2, albumin is 2.9. Assessment And Plan: 48-year-old female with longstanding history of chronic obstructive pulmonary d isease, coming in with shortness of breath and respiratory distress. Chest x-ray showing bilateral l ower infiltrate, possible edematous changes versus pneumonia with leukocytosis and elevated lactic ac id. We will consider patient being pneumonitis. I agree with Levaquin for 7 days. Tobacco use, avinash holt was educated regarding her tobacco use and consider using nicotine patch. Leukocytosis. Chroni c obstructive pulmonary disease exacerbation. Continue supportive care and continue treatment. Foll ow up with the primary care physician after discharge. Thank you for consult. NF/MODL Voice ID: [id number] Report ID: [id number]
[2024-01-03] MEDS: NICOTINE 14 MG/PAT TD SCH (13:30)
--- OUTSIDE RECORDS SUMMARY | 2024-01-03 14:22 | XMS REPORT | Continuity of Care Document ---
Author Name Unknown Address [address] [place] [address] [facility] thconnect Address [address] [place] [address] Care Team Providers Care Cloth Stretcher Name Role Phone SALAS Hanna [facility], [facility] Care Physician Unavailable HIREN MOYER Attending Clinician Ling Smyth MD Attending Clinician [phone] Mejia IVY, Apurva Medellin Attending Clinician [phone] DAVINA BOYD Attending Clinician Unavailable Mohamud Jacob MD Attending Clinician Jair Reynolds MD Attending Clinician [phone] Davina Boyd MD Attending Clinician [phone] [place] OT, Josef S Attending Clinician Unavail able KAALE, MACYO ERASTO Attending Clinician Unavaillory Del Rio MD, Mayco Maurer Attending Clinician [phone] Shefali Whitney PTA Attending Clinician Unavail Garrett Whelan MD Attending Clinician GARRETT HERRERA Attending Clinician Unavaillory Greer PTA, Mayco Hanna Attending Clinician Unavaila claire Clarke PTA, Sandra Retana Attending Clinician Unav ailable Abdon Corrales PT, Fabiana Attending Clinician Un available Doctor Unassigned, Cambalache Attending Clinician U navailBLAISE Casey Attending Clinician Unavailable Blaise Salas MD Attending Clinician [phone] PATRICK SINGH Attending Clinician Unavailable Patrick Singh MD Attending Clinician [phone] Paras Puri Attending Clinician Unavailable JAIR REYNOLDS Admitting Clinician Unavailable Jair Reynolds MD Admitting Clinician [phone] MAYCO DEL RIO Admitting Clinician UnavailBLAISE Weinstein Admitting Clinician Unavailable PATRICK SINGH Admitting Clinician Unavailable Dianne Stewart Admitting Clinician Unavailable Payers Payer Name Policy Type Policy Number Effective Date Expirati on Date Source [facility] [id number] 2023 00:00:00 [employer] [id number] 2022 00:00:00 DARS DISABILITY DETERMINATION [facility] [id number] 2014 00:00:00 Problems Condition Name Condition Details Condition Category Status Onset Date Resolution Date Last Treatment Date Treating Clinician Comments Source Morbid obesity with body mass index of 40.0-49.9 Morbid obesity with body mass index of 40.0-49.9 Disease Active 2022-05 00:00: 00 [facility] Status asthmaticu s Status asthmaticu s Disease Active 2022-05 00:00: 00 [facility] Obesity (BMI 30-39.9) Obesity (BMI 30-39.9) Disease Active 2022-05 00:00: 00 [facility] No known active problems No known active problems Disease [facility] Allergies, Adverse Reactions, Alerts Allergy Name Allergy Type Status Severity Reaction(s) Onset Date Inactive Date Treating Clinician Comments Source BENADRYL ALLERGY DECONGES TANT DRUG Active High Swelling 08-18 00:00: 00 [facility] Benadryl Allergy Deconges tant Propensi ty to adverse reaction s Active Swelling 405 00:00: 00 [facility] diphenhy dramine DA Active SV HIVES AROUND HER BODY 2020-05 00:00: 00 [facility] Penicill ins DA Active U UNKNOWN ACCORDING TO PATIENT BEING TOLD SINCE SHE WAS A CHIL 2020-05 00:00: 00 [facility] PENICILL IN DRUG INGREDI Active Unknown-Cmnt 06-23 00:00: 00 [facility] Penicill in Propensi ty to adverse reaction s Active Unknown - See comments 06-23 00:00: 00 Was told as a child [facility] NO KNOWN ALLERGIE S Drug Class Active [facility] Social History Social Habit Start Date Stop Date Quantity Comments Source Gender identity [facility] Sexual orientation U [facility] History of tobacco use Passive smoker [facility] Tobacco use and exposure 2023-04-16 00:00:00 2023-04-16 00:00:00 Smokeless tobacco non-user [facility] History of Social function 2023-04-14 00:00:00 2023-04-14 00:00:00 [facility] Exposure to SARS-CoV-2 (event) 2022-01-01 00:00:00 2022-01-11 10:34:00 Not sure [facility] Sex Assigned At 1975 00:00:00 1975 00:00:00 [facility] Smoking Status Start Date Stop Date Source Tobacco smoking consumption unknown [facility] Ex-smoker 2023-04-16 00:00:00 2023-04-16 00:00:00 [facility] Medications Ordered Medication Name Filled Medication Name Start Date Stop Date Current Medication? Ordering Clinician Indication Dosage Frequency Signature (SIG) Comments Components Source Fluticasone -Salmeterol (WIXELA INHUB) 500-50 mcg/dose inhalation disk 2022-05 00:00: 00 Yes [id number] 1{puff} Inhale 1 Puff every 12 (twelve) hours. Use twice daily for maintenanc e. May also use as needed for rescue. [facility] amLODIPine 10 mg tablet 2022-05 00:00: 00 Yes [id number] 10mg Take 1 tablet by mouth in the morning. [facility] hydroCHLORO thiazide 12.5 mg capsule 2022-05 00:00: 00 Yes [id number] 12.5mg Take 1 capsule by mouth in the morning. [facility] montelukast 10 mg tablet 2022-05 00:00: 00 04-20 00:00 :00 No [id number] 10mg Take 1 tablet by mouth in the morning. [facility] albuterol (VENTOLIN) inhaler 2 Puff 2022-05 20:45: 00 Yes 2{puff} 2 Puff, Inhalation , Q4H, First dose on Tue04/20/23 at 1600, Until Discontinu ed, Routine [facility] naproxen (NAPROSYN) 500 mg tablet 2022-05 00:00: 00 Yes [id number] 500mg Take 1 tablet by mouth every 8 (eight) hours as needed for Pain (scale 4-6). [facility] budesonide- formoteroL 160-4.5 mcg/actuati on inhaler 2022-05 00:00: 00 05-03 00:00 :00 No [id number] 2{puff} Inhale 2 Puffs in the morning and 2 Puffs in the evening. [facility] benzonatate 100 mg capsule 2022-05 00:00: 00 04-26 05:59 :00 No [id number] 100mg Take 1 capsule by mouth every 8 (eight) hours as needed for Cough for up to 5 days. [facility] iron dextran (INFED) 1,000 mg in NaCl 0.9% (NS) 500 mL IV infusion 2022-05 19:30: 00 04-20 00:31 :00 No 1000mg 1,000 mg, IV Infusion, ONCE, 1 dose, On Tue04/19/23 at 1330, Administer over 1 Hours, 500 mL [facility] iron dextran (INFED) 25 mg in NaCl 0.9% (NS) 100 mL IV piggyback 2022-05 19:30: 00 04-19 22:19 :00 No 25mg 25 mg, IV Piggyback, ONCE, 1 dose, On Tue04/19/23 at 1330, Administer over 15 Minutes, 100 mL [facility] benzonatate (TESSALON PERLES) capsule 100 mg 2022-05 15:15: 00 Yes 100mg 100 mg, Oral, Q8H, First dose on Tue04/19/23 at 0915, Until Discontinu ed, Routine [facility] furosemide (LASIX) injection 20 mg 2022-05 16:00: 00 04-17 16:02 :00 No 20mg 20 mg, Slow IV Push, ONCE, 1 dose, On Tue04/17/23 at 1000, Routine [facility] budesonide- formoteroL (SYMBICORT) 80-4.5 mcg/actuati on inhaler 2 Puff 2022-05 15:45: 00 Yes 2{puff} 2 Puff, Inhalation , BID, First dose on Tue04/17/23 at 0945, Until Discontinu ed, [facility] 7% (HYPER-MAYRA) nebulizer solution 4 mL 2022-05 15:45: 00 Yes 4mL 4 mL, Inhalation , BID, First dose on Tue04/17/23 at 0945, Until Discontinu ed, Routine [facility] lidocaine 2% viscous (LIDOCAINE VISCOUS) 2 % solution 15 mL 2022-05 15:30: 00 04-17 20:37 :00 No 15mL 15 mL, Oral, ONCE, 1 dose, On Tue04/17/23 at 0930, Routine [facility] hydroCHLORO thiazide (ESIDRIX) capsule 12.5 mg 2022-05 15:00: 00 Yes 12.5mg 12.5 mg, Oral, DAILY, First dose on 04/17/23 at 0900, Until Discontinu ed, Routine [facility] polyethylen e glycol 3350 powder 17 g 2022-05 15:00: 00 Yes 17g 17 g, Oral, DAILY, First dose (after last modificati on) on 04/17/23 at 0900, Until Discontinu ed, Routine [facility] sennosides (SENOKOT) tablet 8.6 mg 2022-05 15:00: 00 Yes 8.6mg 8.6 mg, Oral, DAILY, First dose (after last modificati on) on 04/17/23 at 0900, Until Discontinu ed, Routine [facility] pantoprazol e (PROTONIX) EC tablet 40 mg 2022-05 15:00: 00 Yes 40mg 40 mg, Oral, DAILY, First dose on 04/17/23 at 0900, Until Discontinu ed, Routine [facility] losartan (COZAAR) tablet 50 mg 2022-05 15:00: 00 Yes 50mg 50 mg, Oral, DAILY, First dose (after last modificati on) on 04/17/23 at 0900, Until Discontinu ed, Routine [facility] amLODIPine (NORVASC) tablet 10 mg 2022-05 15:00: 00 Yes 10mg 10 mg, Oral, DAILY, First dose (after last modificati on) on 04/17/23 at 0900, Until Discontinu ed, Routine [facility] predniSONE (DELTASONE) tablet 40 mg 2022-05 15:00: 00 04-20 14:33 :00 No 40mg 40 mg, Oral, DAILY, 4 doses, First dose on 04/17/23 at 0900, Last dose on Tue04/20/23 at 0900, Routine [facility] guaiFENesin 100 mg/5 mL solution 200 mg 2022-05 12:45: 00 2023- 12-05 15:10 :35 No 200mg 200 mg, Oral, Q4H, First dose on 04/17/23 at 0645, Until Discontinu ed, Routine [facility] Sliding Scale Insulin - Lispro (HumaLOG) 2022-05 23:00: 00 Yes Subcutaneo us, TID MEALS+HS, First dose (after last modificati on) on 04/16/23 at 1700, Until Discontinu ed, Routine [facility] ipratropium (ATROVENT) 0.02 % nebulizer solution 0.5 mg 2022-05 22:00: 00 Yes .5mg 0.5 mg, Inhalation , Q4H, First dose on 04/16/23 at 1600, Until Discontinu ed, Routine [facility] levalbutero l (XOPENEX) nebulizer solution 1.25 mg 2022-05 22:00: 00 Yes 1.25mg 1.25 mg, Inhalation , Q4H, First dose on 04/16/23 at 1600, Until Discontinu ed, Routine [facility] enoxaparin (LOVENOX) injection 40 mg 2022-05 21:15: 00 Yes 40mg 40 mg, Subcutaneo us, Q24H, First dose on 04/16/23 at 1515, Until Discontinu ed, Routine [facility] furosemide (LASIX) injection 20 mg 2022-05 21:00: 00 04-16 21:12 :00 No 20mg 20 mg, Slow IV Push, ONCE, 1 dose, On 04/16/23 at 1500, Routine [facility] Lidocaine (LIDOCARE) 4 % patch 1 Patch 2022-05 20:45: 00 04-17 09:12 :00 No 1{patch } 1 Patch, Topical, Administer over 12 Hours, ONCE, 1 dose, On 04/16/23 at 1445, Routine [facility] ipratropium -albuteroL (DUONEB) 0.5 mg-3 mg(2.5 mg base)/3 mL nebulizer solution 3 mL 2022-05 20:15: 00 Yes 3mL 3 mL, Inhalation , QIDPRN, Starting on 04/16/23 at 1415, Until Discontinu ed, Routine, Wheezing [facility] phenoL (SORE THROAT (PHENOL)) 1.4 % spray bottle 1 [place] 2022-05 13:47: 02 Yes 1{spray } 1 [place], Oral, PRN, Starting on 04/16/23 at 0747, Until Discontinu ed, Routine, Sore throat [facility] Lidocaine (LIDOCARE) 4 % patch 1 Patch 2022-05 10:00: 00 04-16 22:03 :00 No 1{patch } 1 Patch, Topical, Administer over 12 Hours, ONCE, 1 dose, On 04/16/23 at 0400, Routine [facility] acetaminoph en (TYLENOL) tablet 650 mg 2022-05 07:40: 11 Yes 650mg 650 mg, Oral, Q6HPRN, Starting on 04/16/23 at 0140, Until Discontinu ed, Routine, Pain (scale 1-3), Temp > 38 C [facility] amLODIPine (NORVASC) tablet 5 mg 2022-05 06:00: 00 04-16 16:38 :32 No 5mg 5 mg, Oral, DAILY, First dose on 04/16/23 at 0000, Until Discontinu ed, Routine [facility] hydralAZINE (APRESOLINE ) injection 10 mg 2022-05 03:45: 00 04-16 04:32 :00 No 10mg 10 mg, Slow IV Push, ONCE, 1 dose, On Tue04/15/23 at 2145, STAT [facility] D5W IV infusion 1,000 mL 2022-05 02:45: 00 04-16 02:42 :02 No 1000mL at 150 mL/hr, IV Infusion, ONCE, 1 dose, On Tue04/15/23 at 2045, Routine [facility] lactated ringers IV infusion 1,000 mL 2022-05 02:30: 00 04-16 02:43 :00 No 1000mL at 200 mL/hr, 1,000 mL, IV Infusion, ONCE, 1 dose, On Tue04/15/23 at 2030, Routine [facility] lactated ringers IV infusion 1,000 mL 2022-05 01:30: 00 04-16 00:55 :00 No 1000mL at 50 mL/hr, 1,000 mL, IV Infusion, ONCE, 1 dose, On Tue04/15/23 at 1930, Routine [facility] losartan (COZAAR) tablet 25 mg 2022-05 01:00: 00 04-16 16:38 :32 No 25mg 25 mg, Oral, DAILY, First dose on Tue04/15/23 at 2000, Until Discontinu ed, Routine [facility] acetaminoph en ADULT (OFIRMEV) injection 1,000 mg 2022-05 04:08: 24 04-16 04:07 :24 No 1000mg 1,000 mg, IV Infusion, at 400 mL/hr Administer over 15 Minutes, Q8HPRN, Starting on Tue04/14/23 at 2208, Until Tue04/15/23 at 2207, Routine, Pain (scale 1-3), Fever>38c< br>Indicat ion: Strict NPO and unable to tolerate oral medication s [facility] dexamethaso ne sod phos PF injection 6 mg 2022-05 00:00: 00 04-15 11:00 :00 No 6mg 6 mg, Intravenou s, Q6H, 3 doses, First dose on Tue04/14/23 at 1800, Last dose on Tue04/15/23 at 0600, 1 mL [facility] dexMEDEtomi dine 200 mcg in 0.9 [...] at maximum allowed dose, contact prescriber .
[facility] furosemide (LASIX) injection 20 mg 2022-05 22:00: 00 04-14 21:17 :00 No 20mg 20 mg, Slow IV Push, ONCE, 1 dose, On Tue04/14/23 at 1600, ZEHRA [facility] sennosides (SENOKOT) tablet 8.6 mg 2022-05 15:00: 00 04-16 20:06 :20 No 8.6mg 8.6 mg, Enteral, DAILY, First dose on Tue04/14/23 at 0900, Until Discontinu ed, Routine [facility] polyethylen e glycol 3350 powder 17 g 2022-05 15:00: 00 04-16 20:06 :20 No 17g 17 g, Enteral, DAILY, First dose on Tue04/14/23 at 0900, Until Discontinu ed, Routine [facility] potassium chloride 40 mEq in 100 mL IVPB 2022-05 12:00: 00 04-14 19:56 :00 No 40meq 40 mEq, Intravenou s, Q2H, 2 doses, First dose on Tue04/14/23 at 0600, Last dose on Tue04/14/23 at 0800, 100 mL [facility] acetaminoph en ADULT (OFIRMEV) injection 1,000 mg 2022-05 04:56: 37 04-15 04:09 :21 No 1000mg 1,000 mg, IV Infusion, at 400 mL/hr Administer over 15 Minutes, Q8HPRN, Starting on Tue04/13/23 at 2256, Until Tue04/14/23 at 2209, Routine, Pain (scale 1-3), fever
I ndication: Strict NPO and unable to tolerate oral medication s [facility] acetaminoph en ADULT (OFIRMEV) injection 1,000 mg 2022-05 20:30: 00 04-13 20:02 :00 No 1000mg 1,000 mg, IV Infusion, at 400 mL/hr Administer over 15 Minutes, ONCE, 1 dose, On Tue04/13/23 at 1430, Routine
Indicatio n: Strict NPO and unable to tolerate oral medication s [facility] dexMEDEtomi dine 200 mcg in 0.9 [...] at maximum allowed dose, contact prescriber .
[facility] midazolam (VERSED) STD 50mg in NaCl [...] at maximum allowed dose, contact prescriber .
[facility] propofoL IV infusion 2022-05 16:43: 55 [...] vials should be discarded after 12 hours.
[facility] acetaminoph en ADULT (OFIRMEV) injection 1,000 mg 2022-05 05:00: 00 04-13 04:31 :00 No 1000mg 1,000 mg, IV Infusion, at 400 mL/hr Administer over 15 Minutes, ONCE, 1 dose, On Tue04/12/23 at 2300, Routine
Indicatio n: Strict NPO and unable to tolerate oral medication s [facility] propofoL IV infusion 2022-05 21:03: 51 [...] vials should be discarded after 12 hours.
[facility] furosemide (LASIX) injection 40 mg 2022-05 20:15: 00 04-12 20:54 :00 No 40mg 40 mg, Slow IV Push, ONCE, 1 dose, On Tue04/12/23 at 1430, Routine [facility] ([facility]ROMAX) 500 mg in NaCl [...]
Durat ion of therapy: 72 hours [facility] albuterol (PROVENTIL) 2.5 mg /3 mL (0.083 %) nebulizer solution 5 mg 2022-05 17:00: 00 04-15 06:30 :39 No 5mg 5 mg, Inhalation , Q3H, First dose (after last modificati on) on Tue04/12/23 at 1100, Until Discontinu ed, Routine [facility] acetaminoph en ADULT (OFIRMEV) injection 1,000 mg 2022-05 16:45: 00 04-12 16:23 :00 No 1000mg 1,000 mg, IV Infusion, at 400 mL/hr Administer over 15 Minutes, ONCE, 1 dose, On Tue04/12/23 at 1045, Routine
Indicatio n: Strict NPO and unable to tolerate oral medication s [facility] albuterol (PROVENTIL) 2.5 mg /3 mL (0.083 %) nebulizer solution 5 mg 2022-05 03:00: 00 04-12 15:49 :34 No 5mg 5 mg, Inhalation , Q1H, First dose (after last modificati on) on Tue04/11/23 at 2100, Until Discontinu ed, Routine [facility] phenylephri [facility] (VAZCULEP) 50 mg [...] maximum allowed dose, contact prescriber .
[facility] insulin lispro (human) (HumaLOG U-100) injection 2 Units 2022-05 00:43: 11 Yes 2U 2 Units, Subcutaneo us, PRN - SEE INSTRUCTIO NS, 1 dose, Starting on Tue04/11/23 at 1843, Until Discontinu ed, Routine, For blood glucose > 300 mg/dL [facility] dextrose 10% (D10W) bolus infusion 125 [...] carb snack - Sprite or cranberry juice.
[facility] pantoprazol e (PROTONIX) injection 40 mg 2022-05 00:00: 00 04-16 17:35 :05 No 40mg 40 mg, Slow IV Push, DAILY, First dose on Tue04/11/23 at 1800, Until Discontinu ed [facility] furosemide (LASIX) injection 40 mg 2022-05 23:30: 00 04-11 23:00 :00 No 40mg 40 mg, Slow IV Push, ONCE, 1 dose, On Tue04/11/23 at 1730, Routine [facility] insulin regular human (HUMULIN R) injection 10 Units 2022-05 23:00: 00 04-11 23:05 :00 No 10U 10 Units, IV Push, ONCE, 1 dose, On Tue04/11/23 at 1700, ZEHRA
In dication for insulin: Hyperkalem ia- Please use the Insulin Protocol for Hyperkalem ia order set [facility] dextrose 50 % in water (D50W) injection 50 mL 2022-05 23:00: 00 04-11 23:02 :00 No 50mL 50 mL, Slow IV Push, ONCE, 1 dose, On Tue04/11/23 at 1700, ZEHRA [facility] glucagon (GLUCAGEN DIAGNOSTIC KIT) injection 1 mg 2022-05 22:42: 20 Yes 1mg 1 mg, Intramuscu lar, PRN, Starting on Tue04/11/23 at 1642, Until Discontinu ed, ZEHRA, Blood Glucose < or = 70 mg/dL and patient is NPO, unable to swallow or has mental changes. [facility] cisatracuri um (NIMBEX) 200 mg in [...] is not maintained , contact prescriber .
[facility] phenylephri ne 50 mg in NS [...] at maximum allowed dose, contact prescriber .
[facility] midazolam (VERSED) STD 50mg in NaCl [...] at maximum allowed dose, contact prescriber .
[facility] propofoL IV infusion 2022-05 11:21: 19 [...] vials should be discarded after 12 hours.
[facility] phenylephri ne (VAZCULEP) 50 mg in [...] at maximum allowed dose, contact prescriber .
[facility] dextrose 50 % in water (D50W) injection 25 mL 2022-05 10:43: 35 Yes 25mL 25 mL, Slow IV Push, PRN, Starting on Tue04/11/23 at 0443, Until Discontinu ed, ZEHRA, Blood Glucose < or = 70 mg/dL and patient is NPO, unable to swallow or has mental status changes. [facility] lactated ringers IV infusion 500 mL 2022-05 06:15: 00 04-11 07:43 :58 No 500mL at 999 mL/hr, 500 mL, Intravenou s, ONCE, 1 dose, On Tue04/11/23 at 0015, Routine [facility] albuterol (PROVENTIL) 2.5 mg /3 mL (0.083 %) nebulizer solution 5 mg 2022-05 02:59: 15 04-12 02:03 :01 No 5mg 5 mg, Inhalation , Q1HPRN, Starting on Tue04/10/23 at 2058, Until 04/11/23 at 2002, Routine, Shortness of Breath, Wheezing [facility] magnesium sulfate in water 2 gram/50 mL (4 %) infusion 2 g 2022-05 02:45: 00 04-11 03:11 :00 No 2g 2 g, IV Piggyback, Administer over 60 Minutes, ONCE, 1 dose, On Tue04/10/23 at 2044, Routine [facility] cisatracuri um (NIMBEX) injection 10 mg 2022-05 02:30: 00 04-11 01:46 :00 No 10mg 10 mg, Intravenou s, ONCE, 1 dose, On Tue04/10/23 at 2030, Routine [facility] cisatracuri um (NIMBEX) 200 mg in [...] is not maintained , contact prescriber .
[facility] montelukast (SINGULAIR) tablet 10 mg 2022-05 02:00: 00 Yes 10mg 10 mg, Oral, DAILY, First dose on Tue04/10/23 at 2000, Until Discontinu ed, Routine [facility] methylpredn isolone sod succ (SOLU-MEDRO L) injection 40 mg 2022-05 02:00: 00 04-12 03:59 :00 No 40mg 40 mg, Intravenou s, Q8H, 4 doses, First dose (after last modificati on) on Tue04/10/23 at 2000, Last dose on Tue04/11/23 at 1400, Routine [facility] phenylephri ne (VAZCULEP) 10 mg in [...] at maximum allowed dose, contact prescriber .
[facility] furosemide (LASIX) injection 40 mg 2022-05 22:00: 00 04-10 21:33 :00 No 40mg 40 mg, Slow IV Push, ONCE, 1 dose, On Tue04/10/23 at 1600, Routine [facility] albuterol (PROVENTIL) 2.5 mg /3 mL (0.083 %) nebulizer solution 5 mg 2022-05 20:48: 54 04-11 01:54 :23 No 5mg 5 mg, Inhalation , Q1HPRN, Starting on Tue04/10/23 at 1448, Until Tue04/10/23 at 1954, Routine, Shortness of Breath, Wheezing, hyperkalem ia [facility] midazolam (VERSED) STD 50mg in NaCl 0.9% (NS) 50 mL infusion RTU 2022-05 18:32: 38 04-11 11:22 :03 No 1mg/h 1-10 mg/hr (1-10 mL/hr), IV Infusion, TITRATE, Sedation-R ASS score (-1 to -2), Starting on [place] 04/10/23 at 1232
In itiate infusion at 1 mg/hr and titrate by 1 mg/hr every 3 minutes to 10 minutes to goal sedation score. Maximum dose = 10 mg/hr.&nbs p; If goal not maintained at maximum allowed dose, contact prescriber .
[facility] methylpredn isolone sod succ (SOLU-MEDRO L) injection 40 mg 2022-05 16:15: 00 04-11 01:54 :23 No 40mg 40 mg, Intravenou s, DAILY, 5 doses, First dose on [place] 04/10/23 at 1015, Last dose on [place] 04/14/23 at 0900, Routine [facility] NaCl 0.9% (NS) bolus infusion 1,000 mL 2022-05 16:00: 00 04-10 16:07 :00 No 1000mL at 999 mL/hr, 1,000 mL, IV Piggyback, ONCE, 1 dose, On [place] 04/10/23 at 1000, STAT [facility] fentaNYL PF (SUBLIMAZE) STD 2,500 mcg [...] at maximum allowed dose, contact prescriber .
[facility] propofoL IV infusion 2022-05 15:56: 51 [...] be discarded after 12 hours.
[facility] sodium chloride 7% (HYPER-MAYRA) nebulizer solution 4 mL 2022-05 15:00: 00 04-11 03:37 :05 No 4mL 4 mL, Inhalation , DAILY, First dose on Tue04/10/23 at 0900, Until Discontinu ed, Routine [facility] Sliding Scale Insulin - Lispro (HumaLOG) 2022-05 14:00: 00 04-16 20:06 :28 No Subcutaneo us, Q4H, First dose (after last modificati on) on Tue04/10/23 at 0800, Until Discontinu ed, Routine [facility] ipratropium -albuteroL (DUONEB) 0.5 mg-3 mg(2.5 mg base)/3 mL nebulizer solution 3 mL 2022-05 10:00: 00 04-16 20:04 :53 No 3mL 3 mL, Inhalation , Q4H, First dose on Tue04/10/23 at 0400, Until Discontinu ed, Routine [facility] propofoL IV infusion 2022-05 09:22: 59 04-10 [...] vials should be discarded after 12 hours.
[facility] azithromyci n (ZITHROMAX) tablet 500 mg 01-19 00:45: 00 01-19 01:14 :00 No 500mg 500 mg, Oral, ONCE, 1 dose, On Tue01/18/23 at 1945, ZEHRA
Re ason for Anti-Infec tive: Documented Infection< br>Documen ashly Infection Site: Respirator y
Durat ion of Therapy: 7 days [facility] furosemide (LASIX) tablet 20 mg 01-19 00:45: 00 01-19 01:14 :00 No 20mg 20 mg, Oral, ONCE, 1 dose, On Tue01/18/23 at 1945, ZEHRA [facility] predniSONE 20 mg tablet 01-19 00:00: 00 01-27 04:59 :00 No [id number] 40mg Take 2 tablets by mouth in the morning for 7 days. [facility] ipratropium -albuteroL (DUONEB) 0.5 mg-3 mg(2.5 mg base)/3 mL nebulizer solution 3 mL 01-18 19:45: 00 01-18 20:30 :00 No 3mL 3 mL, Inhalation , ONCE, 1 dose, On Tue01/18/23 at 1445, ZEHRA [facility] predniSONE (DELTASONE) tablet 40 mg 01-18 19:00: 00 01-18 20:26 :00 No 40mg 40 mg, Oral, ONCE, 1 dose, On Tue01/18/23 at 1400, ZEHRA [facility] albuterol 90 mcg/actuati on inhaler 01-18 00:00: 00 Yes [id number] 2{puff} Inhale 2 Puffs every 4 (four) hours as needed for Wheezing or Shortness of Breath. [facility] benzonatate 200 mg capsule 01-18 00:00: 00 Yes [id number] 200mg Take 1 capsule by mouth 3 (three) times daily as needed for Cough. [facility] azithromyci n 250 mg tablet 01-18 00:00: 00 Yes [id number] 250mg Take 1 tablet by mouth SEE-INSTRU CTIONS. Take 500 mg day 1, then 250 mg days 2 to 5. [facility] furosemide 20 mg tablet 01-18 00:00: 00 Yes [id number] 20mg Take 1 tablet by mouth every morning. [facility] ketorolac (TORADOL) injection 30 mg 01-11 19:30: 00 01-11 18:34 :00 No 30mg 30 mg, Slow IV Push, ONCE, 1 dose, On Tue01/11/22 at 1430, ZEHRA [facility] morpHINE (4 mg/mL) injection 4 mg 01-11 18:30: 00 01-11 18:34 :00 No 4mg 4 mg, Slow IV Push, ONCE, 1 dose, On Tue01/11/22 at 1330, STAT [facility] ondansetron (ZOFRAN (PF)) injection 4 mg 01-11 17:15: 00 01-11 16:26 :00 No 4mg 4 mg, Slow IV Push, ONCE, 1 dose, On Tue01/11/22 at 1215, ZEHRA [facility] morpHINE (4 mg/mL) injection 4 mg 01-11 16:15: 00 01-11 16:27 :00 No 4mg 4 mg, Slow IV Push, ONCE, 1 dose, On Tue01/11/22 at 1115, STAT [facility] ciprofloxac in HCl 500 mg tablet 01-11 00:00: 00 04-20 00:00 :00 No [id number] 500mg Take 1 tablet by mouth in the morning and 1 tablet in the evening. [facility] HYDROcodone -acetaminop hen (NORCO) 7.5-325 mg per tablet 01-11 00:00: 00 01-19 04:59 :00 No [id number] 1{tbl} Take 1 tablet by mouth every 8 (eight) hours as needed for Pain for up to 7 days. Indication s: acute pain [facility] predniSONE 20 mg tablet 01-11 00:00: 00 01-17 04:59 :00 No [id number] 20mg Take 1 tablet by mouth in the morning for 5 days. [facility] ketorolac (TORADOL) injection 30 mg 08-19 03:15: 00 08-19 02:57 :00 No 30mg 30 mg, Intramuscu lar, ONCE, 1 dose, On Tue08/18/21 at 2215, ZEHRA [facility] predniSONE 20 mg tablet 08-18 00:00: 00 04-20 00:00 :00 No [id number] TAKE ONE TABLET BY MOUTH DAILY [facility] gabapentin 300 mg capsule 08-18 00:00: 00 04-20 00:00 :00 No [id number] 300mg Take 1 capsule by mouth 3 (three) times daily. [facility] cyclobenzap rine 10 mg tablet 06-23 00:00: 00 Yes [id number] 10mg Take 1 tablet by mouth 3 (three) times daily as needed for Muscle Spasms. [facility] traMADoL 50 mg tablet 06-23 00:00: 00 04-20 00:00 :00 No [id number] 50mg Take 1 tablet by mouth every 6 (six) hours as needed for Pain (scale 7-10). Indication s: acute pain [facility] naproxen (NAPROSYN) 500 mg tablet 06-23 00:00: 00 04-20 00:00 :00 No [id number] 500mg Take 1 tablet by mouth 2 (two) times daily with meals. [facility] Vital Signs Vital Name Observation Time Observation Value Jus turcios Systolic blood pressure 2023-04-20 21:58:00 126 mm[Hg] [facility] Diastolic blood pressure 2023-04-20 21:58:00 71 mm[Hg] [facility] Heart rate 2023-04-20 21:58:00 87 /min Unive [facility] Body temperature 2023-04-20 21:58:00 36.22 Norma [facility] Respiratory rate 2023-04-20 21:58:00 18 /min [facility] Oxygen saturation in Arterial blood by Pulse oximetry 2023-04-20 21:58:00 91 /min [facility] Body height 2023-04-16 20:39:00 167.6 cm [facility] Body weight 2023-04-16 20:39:00 118 kg per bed [facility] BMI 2023-04-16 20:39:00 41.99 kg/m2 [facility] Systolic blood pressure 2023-01-19 01:00:00 176 mm[Hg] [facility] Diastolic blood pressure 2023-01-19 01:00:00 96 mm[Hg] [facility] Heart rate 2023-01-19 01:00:00 76 /min Unive [facility] Respiratory rate 2023-01-19 01:00:00 18 /min [facility] Oxygen saturation in Arterial blood by Pulse oximetry 2023-01-19 01:00:00 95 /min [facility] Body temperature 2023-01-18 18:33:00 37.22 Norma [facility] Body height 2023-01-18 18:33:00 167.6 cm [facility] Body weight 2023-01-18 18:33:00 110.224 kg [facility] BMI 2023-01-18 18:33:00 39.22 kg/m2 [facility] Systolic blood pressure 2022-01-11 19:34:00 116 mm[Hg] [facility] Diastolic blood pressure 2022-01-11 19:34:00 77 mm[Hg] [facility] Heart rate 2022-01-11 19:34:00 78 /min Unive [facility] Respiratory rate 2022-01-11 19:34:00 20 /min [facility] Oxygen saturation in Arterial blood by Pulse oximetry 2022-01-11 19:34:00 99 /min [facility] Body temperature 2022-01-11 15:35:00 36.67 Norma [facility] Body weight 2022-01-11 15:35:00 104.327 kg [facility] BMI 2022-01-11 15:35:00 37.12 kg/m2 [facility] Systolic blood pressure 2021-08-19 04:28:52 143 mm[Hg] [facility] Diastolic blood pressure 2021-08-19 04:28:52 83 mm[Hg] [facility] Heart rate 2021-08-19 04:28:52 95 /min [facility] Respiratory rate 2021-08-19 04:28:52 20 /min [facility] Oxygen saturation in Arterial blood by Pulse oximetry 2021-08-19 04:28:52 97 /min [facility] Body temperature 2021-08-18 23:50:00 37.83 Norma [facility] Body height 2021-08-18 23:50:00 167.6 cm [facility] Body weight 2021-08-18 23:50:00 104.327 kg [facility] BMI 2021-08-18 23:50:00 37.12 kg/m2 [facility] Procedures Procedure Date / Time Performed Performing Clinician Source POCT GLUCOSE (AUTOMATED) 2023-04-20 22:00:00 Kristina Reynolds [facility] POCT GLUCOSE (AUTOMATED) 2023-04-20 17:28:00 Kristina Reynolds [facility] POCT GLUCOSE (AUTOMATED) 2023-04-20 14:36:00 Kristina Reynoldsshahida [facility] CBC WITHOUT DIFF 2023-04-20 10:36:00 Ling Quinn [facility] POCT GLUCOSE (AUTOMATED) 2023-04-20 03:10:00 Kristina Reynoldsshahida [facility] POCT GLUCOSE (AUTOMATED) 2023-04-20 00:46:00 Kristina Reynoldsshahida [facility] POCT GLUCOSE (AUTOMATED) 2023-04-19 17:47:00 Kristina Reynoldsshahida [facility] MAGNESIUM 2023-04-19 10:10:00 Ling Quinn [facility] BASIC METABOLIC PANEL (NA, K, CL, CO2, GLUCOSE, BUN, CREATININE, CA) 2023-04-19 10:10:00 Ling Quinn [facility] CBC WITH DIFF 2023-04-19 10:10:00 Ling Quinn [facility] POCT GLUCOSE (AUTOMATED) 2023-04-19 02:41:00 Kristina Reynoldsshahida [facility] POCT GLUCOSE (AUTOMATED) 2023-04-18 23:45:00 Kristina Reynoldsshahida [facility] MAGNESIUM 2023-04-18 16:45:00 Scott Ingram [facility] BASIC METABOLIC PANEL (NA, K, CL, CO2, GLUCOSE, BUN, CREATININE, CA) 2023-04-18 16:45:00 Francisco J Ingram [facility] CBC WITHOUT DIFF 2023-04-18 16:45:00 Gregor Ingram [facility] POCT GLUCOSE (AUTOMATED) 2023-04-18 15:45:00 Kristina Reynoldsshahida [facility] POCT GLUCOSE (AUTOMATED) 2023-04-18 03:28:00 Kristina Reynoldsshahida [facility] POCT GLUCOSE (AUTOMATED) 2023-04-17 23:15:00 Kristina Reynoldsshahida [facility] POCT GLUCOSE (AUTOMATED) 2023-04-17 18:30[facility] 2023-04-17 15:34:00 Kristina Reynolds [facility] MAGNESIUM 2023-04-17 12:14:00 Scott Ingram [facility] BASIC METABOLIC PANEL (NA, K, CL, CO2, GLUCOSE, BUN, CREATININE, CA) 2023-04-17 12:14:00 Francisco J Ingram [facility] CBC WITHOUT DIFF 2023-04-17 12:14:00 Gregor Ingram [facility] HB ABO GROUPING 2023-04-17 12:14:00 Lolis Correa [facility] N-TERMINAL PRO-BNP 2023-04-17 12:14:00 Francisco J Ingram [facility] POCT GLUCOSE (AUTOMATED) 2023-04-17 01:45:00 Kristina Reynolds [facility] POCT GLUCOSE (AUTOMATED) 2023-04-16 22:44:00 Kristina Reynoldsshahida [facility] POCT GLUCOSE (AUTOMATED) 2023-04-16 18:04:00 Lainey Jacob [facility] POCT GLUCOSE (AUTOMATED) 2023-04-16 14:49:00 Lainey Jacob [facility] POCT GLUCOSE (AUTOMATED) 2023-04-16 09:59:00 Lainey Jacob [facility] MAGNESIUM 2023-04-16 09:55:00 Greg Neves [facility] BASIC METABOLIC PANEL (NA, K, CL, CO2, GLUCOSE, BUN, CREATININE, CA) 2023-04-16 09:55:00 [facility] 2023-04-16 09:55:00 Juana [facility]ower [facility] POCT GLUCOSE (AUTOMATED) 2023-04-16 07:03:00 Lainey Jacob [facility] BASIC METABOLIC PANEL (NA, K, CL, CO2, GLUCOSE, BUN, CREATININE, CA) 2023-04-16 02:06:00 Juana Bower [facility] POCT GLUCOSE (AUTOMATED) 2023-04-16 01:49:00 Lainey Jacob [facility] MAGNESIUM 2023-04-15 23:31:00 Greg Neves [facility] BASIC METABOLIC PANEL (NA, K, CL, CO2, GLUCOSE, BUN, CREATININE, CA) 2023-04-15 23:31:00 Juana Bower [facility] XR CHEST 1 VW 2023-04-15 20:50:00 Sharif Monae [facility] XR KUB 2023-04-15 20:50:00 Juana Bower [facility] XR CHEST 1 VW 2023-04-15 17:00:00 Sathish [facility] POCT GLUCOSE (AUTOMATED) 2023-04-15 14:13:00 Lainey Jacob [facility] MAGNESIUM 2023-04-15 09:38:00 Greg Neves [facility] BASIC METABOLIC PANEL (NA, K, CL, CO2, GLUCOSE, BUN, CREATININE, CA) 2023-04-15 09:38:00 Sathish [place] [facility] CBC WITH DIFF 2023-04-15 09:38:00 Juana Bower [facility] POCT GLUCOSE (AUTOMATED) 2023-04-15 09:36:00 Lainey Jacob [facility] POCT GLUCOSE (AUTOMATED) 2023-04-15 05:50:00 Lainey Jacob [facility] AC PANEL 21 + LACTIC ACID 2023-04-15 02:08:00 Spencer Medina [facility] POCT GLUCOSE (AUTOMATED) 2023-04-15 02:07:00 Lainey Jacob [facility] PHOSPHORUS 2023-04-14 23:54:00 Juana Bower [facility] MAGNESIUM 2023-04-14 21:02:00 Greg Neves [facility] BASIC METABOLIC PANEL (NA, K, CL, CO2, GLUCOSE, BUN, CREATININE, CA) 2023-04-14 21:02:00 Sathish, [facility] EKG-12 LEAD 2023-04-14 18:09:28 Jair Reynolds [facility] POCT GLUCOSE (AUTOMATED) 2023-04-14 18:05:00 Lainey Jacob [facility] AC PANEL 21 + LACTIC ACID 2023-04-14 14:54:00 Sathish [facility] SPUTUM CULTURE 2023-04-14 14:45:00 Bear Riggins [facility] PHOSPHORUS 2023-04-14 09:42:00 Sathish [facility] LIPASE 2023-04-14 09:42:00 Sathish [facility] MAGNESIUM 2023-04-14 09:42:00 Greg Neves [facility] BASIC METABOLIC PANEL (NA, K, CL, CO2, GLUCOSE, BUN, CREATININE, CA) 2023-04-14 09:42:00 Sathish [facility] CBC WITH DIFF 2023-04-14 09:42:00 Sathish [facility] POCT GLUCOSE (AUTOMATED) 2023-04-14 09:41:00 Lainey Jacob [facility] POCT GLUCOSE (AUTOMATED) 2023-04-14 06:11:00 Lainey Jacob [facility] AC PANEL 21 + LACTIC ACID 2023-04-14 02:35:00 Spencer Medina [facility] XR CHEST 1 VW 2023-04-14 02:34:00 Bear Riggins [facility] XR KUB 2023-04-14 02:34:00 Bear Riggins [facility] POCT GLUCOSE (AUTOMATED) 2023-04-14 02:34:00 Lainey Jacob [facility] POCT GLUCOSE (AUTOMATED) 2023-04-14 02:33:00 Lainey Jacob [facility] MAGNESIUM 2023-04-13 22:33:00 Greg Neves [facility] FERRITIN SERUM 2023-04-13 22:33:00 KitsapSheryl manzanares [facility] LIPID PANEL ([id number])(TOTAL CHOLESTEROL, TRIGLYCERIDES, HDL) 2023-04-13 22:33:00 Gilson [facility] LOW-DENSITY LIPOPROTEIN, DIRECT 2023-04-13 22:33:00 Bear Riggins [facility] POCT GLUCOSE (AUTOMATED) 2023-04-13 22:15:00 Lainey Jacob [facility] BLOOD CULTURE SCREEN 2023-04-13 20:24:00 Elvie Bower [facility] BLOOD CULTURE SCREEN 2023-04-13 20:23:00 Elvie Bower [facility] POCT GLUCOSE (AUTOMATED) 2023-04-13 17:29:00 Lainey Jacob [facility] AC PANEL 21 + LACTIC ACID 2023-04-13 16:32:00 Spencer Medina [facility] POCT GLUCOSE (AUTOMATED) 2023-04-13 13:40:00 Lainey Jacob [facility] PHOSPHORUS 2023-04-13 09:50:00 Juana Bower [facility] MAGNESIUM 2023-04-13 09:50:00 Greg Neves [facility] BASIC METABOLIC PANEL (NA, K, CL, CO2, GLUCOSE, BUN, CREATININE, CA) 2023-04-13 09:50:00 Sathish [place] [facility] CBC WITH DIFF 2023-04-13 09:50:00 Juana Bower [facility] AC PANEL 21 + LACTIC ACID 2023-04-13 09:50:00 Spencer Medina [facility] POCT GLUCOSE (AUTOMATED) 2023-04-13 09:48:00 Lainey Jacob [facility] BASIC METABOLIC PANEL (NA, K, CL, CO2, GLUCOSE, BUN, CREATININE, CA) 2023-04-13 05:50:00 Greg Neves [facility] POCT GLUCOSE (AUTOMATED) 2023-04-13 05:49:00 Lainey Jacob [facility] AC PANEL 21 + LACTIC ACID 2023-04-13 04:21:00 Spencer Medina [facility] BASIC METABOLIC PANEL (NA, K, CL, CO2, GLUCOSE, BUN, CREATININE, CA) 2023-04-13 02:24:00 Greg Neves [facility] CBC WITHOUT DIFF 2023-04-13 02:24:00 Juana Bower [facility] POCT GLUCOSE (AUTOMATED) 2023-04-13 02:19:00 Lainey Jacob [facility] POCT GLUCOSE (AUTOMATED) 2023-04-12 21:44:00 Lainey Jacob [facility] MAGNESIUM 2023-04-12 21:37:00 Greg Neves [facility] BASIC METABOLIC PANEL (NA, K, CL, CO2, GLUCOSE, BUN, CREATININE, CA) 2023-04-12 21:37:00 Greg Neves [facility] AC PANEL 20 + LACTIC ACID 2023-04-12 20:40:00 Juana Bower [facility] CBC WITH DIFF 2023-04-12 20:39:00 Greg Neves [facility] BASIC METABOLIC PANEL (NA, K, CL, CO2, GLUCOSE, BUN, CREATININE, CA) 2023-04-12 18:17:00 Greg Neves [facility] POCT GLUCOSE (AUTOMATED) 2023-04-12 17:38:00 Lainey Jacob [facility] CBC WITH DIFF 2023-04-12 14:02:00 Juana Bower [facility] POCT GLUCOSE (AUTOMATED) 2023-04-12 13:33:00 Lainey Jacob [facility] PREPARE PACKED RBC 2023-04-12 13:28:16 Greg Neves [facility] MAGNESIUM 2023-04-12 13:22:00 Juana Bower [facility] BASIC METABOLIC PANEL (NA, K, CL, CO2, GLUCOSE, BUN, CREATININE, CA) 2023-04-12 13:22:00 Juana Bower [facility] XR CHEST 1 VW 2023-04-12 11:40:00 Greg Neves [facility] ABORH CONFIRMATION (LAB ONLY) 2023-04-12 11:31:00 Mohamud Jacob [facility] HB ABO GROUPING 2023-04-12 11:00:00 Greg Neves [facility] AC PANEL 20 + LACTIC ACID 2023-04-12 09:46:00 Martha Muñoz [facility] PHOSPHORUS 2023-04-12 09:43:00 Greg Neves [facility] MAGNESIUM 2023-04-12 09:43:00 Greg Neves [facility] BASIC METABOLIC PANEL (NA, K, CL, CO2, GLUCOSE, BUN, CREATININE, CA) 2023-04-12 09:43:00 Greg Neves Hardik [facility] CBC WITH DIFF 2023-04-12 09:43:00 Greg Neves Hardik [facility] POCT GLUCOSE (AUTOMATED) 2023-04-12 09:40:00 Lainey Jacob [facility] PHOSPHORUS 2023-04-12 06:22:00 Greg Neves [facility] MAGNESIUM 2023-04-12 06:22:00 Greg Neves [facility] BASIC METABOLIC PANEL (NA, K, CL, CO2, GLUCOSE, BUN, CREATININE, CA) 2023-04-12 06:22:00 Greg Neves [facility] POCT GLUCOSE (AUTOMATED) 2023-04-12 06:21:00 Lainey Jacob [facility] POCT GLUCOSE (AUTOMATED) 2023-04-12 02:28:00 Lainey Jacob [facility] AC PANEL 20 + LACTIC ACID 2023-04-12 01:14:00 Gomez Smalls [facility] PHOSPHORUS 2023-04-12 00:31:00 Greg Neves [facility] MAGNESIUM 2023-04-12 00:31:00 Greg Neves [facility] BASIC METABOLIC PANEL (NA, K, CL, CO2, GLUCOSE, BUN, CREATININE, CA) 2023-04-12 00:31:00 Greg Neves [facility] IRON PANEL 2023-04-12 00:31:00 [facility] 2023-04-11 23:47:00 Lainey Jacob [facility] POCT GLUCOSE (AUTOMATED) 2023-04-11 22:59:00 Lainey Jacob [facility] PHOSPHORUS 2023-04-11 21:15:00 Greg Neves [facility] MAGNESIUM 2023-04-11 21:15:00 Greg Neves [facility] BASIC METABOLIC PANEL (NA, K, CL, CO2, GLUCOSE, BUN, CREATININE, CA) 2023-04-11 21:15:00 Greg Neves Hardik [facility] AC PANEL 20 + LACTIC ACID 2023-04-11 21:15:00 Martha Muñoz [facility] PHOSPHORUS 2023-04-11 17:36:00 Greg Neves [facility] MAGNESIUM 2023-04-11 17:36:00 Greg Neves [facility] BASIC METABOLIC PANEL (NA, K, CL, CO2, GLUCOSE, BUN, CREATININE, CA) 2023-04-11 17:36:00 Greg Neves [facility] AC PANEL 20 + LACTIC ACID 2023-04-11 17:36:00 Martha Muñoz [facility] PHOSPHORUS 2023-04-11 14:26:00 Greg Neves [facility] MAGNESIUM 2023-04-11 14:26:00 Greg Neves [facility] BASIC METABOLIC PANEL (NA, K, CL, CO2, GLUCOSE, BUN, CREATININE, CA) 2023-04-11 14:26:00 Greg Neves Hardik [facility] AC PANEL 20 + LACTIC ACID 2023-04-11 14:26:00 Gomez Smalls [facility] XR CHEST 1 VW 2023-04-11 13:47:50 Spencer Medina [facility] CT CHEST PULMONARY ANGIOGRAM 2023-04-11 13:47:27 Spencer Medina [facility] PHOSPHORUS 2023-04-11 09:38:00 Grge Neves [facility] MAGNESIUM 2023-04-11 09:38:00 Greg Neves [facility] BASIC METABOLIC PANEL (NA, K, CL, CO2, GLUCOSE, BUN, CREATININE, CA) 2023-04-11 09:38:00 [facility]23-04-11 09:38:00 [facility] AC PANEL 20 + LACTIC ACID 2023-04-11 09:38:00 Martha Muñoz [facility] POCT GLUCOSE (AUTOMATED) 2023-04-11 09:37:00 Lainey Jacob [facility] POCT GLUCOSE (AUTOMATED) 2023-04-11 09:36:00 Lainey Jacob [facility] AC PANEL 20 + LACTIC ACID 2023-04-11 06:17:00 Martha Muñoz [facility] POCT GLUCOSE (AUTOMATED) 2023-04-11 05:07:00 Lainey Jacob [facility] AC PANEL 20 + LACTIC ACID 2023-04-11 05:05:00 Sathish [facility] AC PANEL 20 + LACTIC ACID 2023-04-11 04:05:00 Martha Muñoz [facility] BASIC METABOLIC PANEL (NA, K, CL, CO2, GLUCOSE, BUN, CREATININE, CA) 2023-04-11 02:56:00 Juana Bower [facility] AC PANEL 20 + LACTIC ACID 2023-04-11 02:56:00 Martha Muñoz [facility] POCT GLUCOSE (AUTOMATED) 2023-04-11 02:28:00 Lainey Jacob [facility] AC PANEL 20 + LACTIC ACID 2023-04-11 01:46:00 Martha Muñoz [facility] BASIC METABOLIC PANEL (NA, K, CL, CO2, GLUCOSE, BUN, CREATININE, CA) 2023-04-10 23:17:00 Josef Louis [facility] AC PANEL 20 + LACTIC ACID 2023-04-10 22:30:00 Aiden Tomlin [facility] RESPIRATORY PANEL BY PCR 2023-04-10 21:44:00 Sa noble Tomlin [facility] POCT GLUCOSE (AUTOMATED) 2023-04-10 21:39:00 Lainey Jacob [facility] BASIC METABOLIC PANEL (NA, K, CL, CO2, GLUCOSE, BUN, CREATININE, CA) 2023-04-10 20:37:00 Martha Muñoz [facility] AC PANEL 20 + LACTIC ACID 2023-04-10 20:24:00 Martha Muñoz [facility] POCT GLUCOSE (AUTOMATED) 2023-04-10 14:59:00 Lainey Jacob [facility] ABG+COOX+NA+K+GLU+CA2+ 2023-04-10 14:35:00 Meghan Jacob [facility] MAGNESIUM 2023-04-10 10:52:00 Spencer [facility] COMP. METABOLIC PANEL ([id number]) 2023-04-10 10:52:00 Adam, [facility] CBC WITH DIFF 2023-04-10 10:52:00 [facility] GLYCOSYLATED HEMOGLOBIN (A1C) 2023-04-10 10:52:00 [facility] POCT GLUCOSE (AUTOMATED) 2023-04-10 10:52:00 Lainey Jacob [facility] AC PANEL 21 + LACTIC ACID 2023-04-10 09:30:00 Greg Neves [facility] BLOOD CULTURE SCREEN 2023-04-10 09:25:00 Adam [facility] URINALYSIS 2023-04-10 09:[facility]-04-10 09:21:00 Spencer Medina [facility] SPUTUM CULTURE 2023-04-10 09:21:00 Greg Neves [facility] GALV ONLY - INFLUENZA A B RSV PCR 2023-04-10 09:21:00 Greg Neves Hardik [facility] MRSA / MSSA SCREEN BY PCR, NARES 2023-04-10 09:21:00 Greg Neves [facility] LEGIONELLA AND STREPTOCOCCUS PNEUMONIAE URINARY ANTIGENS 2023-04-10 09:21:00 Greg Neves Hardik [facility] BLOOD CULTURE SCREEN 2023-04-10 09:14:00 Spencer Medina [facility] XR CHEST 1 VW 2023-04-10 09:08:00 Greg Neves [facility] XR KUB 2023-04-10 09:08:00 [facility] 2023-01-19 00:43:35 [facility]co [facility] TROPONIN I 2023-01-18 23:17:00 Mayco [facility] LIPASE 2023-01-18 20:22:00 Mayco Del Rio [facility] TROPONIN I 2023-01-18 20:22:00 Mayco [facility] COMP. METABOLIC PANEL ([id number]) 2023-01-18 20:22:00 Mayco Del Rio [facility] CBC WITH DIFF 2023-01-18 20:22:00 Mayco Del Rio [facility] N-TERMINAL PRO-BNP 2023-01-18 20:22:00 Mayco Del Rio [facility] COVID-19 (ID NOW RAPID TESTING) 2023-01-18 20:22:00 Mayco Del Rio [facility] XR CHEST 2 VW 2023-01-18 19:19:28 Mayco Del Rio [facility] CONSENT/REFUSAL FOR DIAGNOSIS AND TREATMENT 2023-01-18 18:28:56 Doctor Unassigned, [place] [facility] ASSIGNMENT OF BENEFITS 2022-10-05 20:29:02 Docto r Unassigned, [place] [facility] REFERRAL- REQUEST/RESPONSE 2022-09-09 05:01:00 Doctor Unassigned, [place] [facility] URINALYSIS 2022-01-11 18:12:00 Blaise [facility]as [facility] POCT TEST 2022-01-11 18:12:00 Evaristo Salas [facility] CT LUMBAR SPINE WO CONTRAST 2022-01-11 16:42:35 Blaise Salas [facility] CT THORACIC SPINE WO CONTRAST 2022-01-11 16:42:35 Blaise Salas [facility] COMP. METABOLIC PANEL ([id number]) 2022-01-11 16:27:00 Blaise Salas [facility] CBC WITH DIFF 2022-01-11 16:27:00 Blaise Salas [facility] ACTIVATED PARTIAL THRMPLAS [place]AGLE 2022-01-11 16:27:00 Blaise Salas [facility] CONSENT/REFUSAL FOR DIAGNOSIS AND TREATMENT 2022-01-11 15:22:37 Doctor Unassigned, [facility] URINALYSIS 2021-08-19 03:07:00 Patrick Singh [facility] NOTICE OF PRIVACY PRACTICES 2021-08-18 23:46:31 Doctor Unassigned, [facility] CONSENT/REFUSAL FOR DIAGNOSIS AND TREATMENT 2021-08-18 23:46:18 Doctor Unassigned, [facility] Encounters Start Date/Time End Date/Time Encounter Type Admission Type Attending [facility] Care Facility Care Department Encounter ID Source 2023-10-12 09:30:00 2023-10-12 09:30:00 Outpatient [facility] [id number] [facility] 2023-08-03 10:30:00 2023-08-03 10:30:00 Outpatient [facility] [id number] [facility] 2023-04-22 00:00:00 2023-04-22 00:00:00 Ling Byrnes [facility] 1.2.840.114 350.1.13.10 4.2.7.2.686 [id number] [facility] 2023-04-21 00:00:00 2023-04-21 00:00:00 Transition of Care Apurva Ba 1.2.840.114 350.1.13.10 4.2.7.2.686 [id number] [facility] 2023-04-10 01:46:00 2023-04-20 18:38:00 Inpatient [facility] [id number] [facility] 2023-04-10 01:46:00 2023-04-20 18:38:00 Hospital Encounter Mohamud Jacob, Davina Ratliff [facility] 1.2840.114 350.1.13.10 4.2.7.2.686 [id number] [facility] 2023-04-18 00:00:00 2023-04-18 00:00:00 Telephone Josef Galvez [facility] 1.2.840.114 350.1.13.10 4.2.7.2.686 [id number] [facility] 2023-01-18 13:35:00 2023-01-18 20:19:00 Emergency X MAYCO DEL RIO [facility] ERT [id number] [facility] 2023-01-18 13:35:00 2023-01-18 20:19:00 Emergency Mayco Del Rio [facility] 1.2.840.114 350.1.13.10 4.2.7.2.686 [id number] [facility] 2022-11-05 14:30:00 2022-11-05 15:15:00 [facility]illary [facility] 1.2.840.114 350.1.13.10 4.2.7.2.686 [id number] [facility] 2022-11-05 14:30:00 2022-11-05 14:30:00 Outpatient R [facility] [id number] [facility] 2022 13:45:00 2022 15:05:10 Ancillary Visit Mayco Greer [facility] 1..840.114 350.1.13.10 4.2.7.2.686 [id number] [facility] 2022-10-26 13:45:00 2022-10-26 15:21:35 Outpatient [facility] [id number] [facility] 2022-10-26 13:45:00 2022-10-26 14:30:00 Ancillary Visit Sandra Clarke Craig L [facility] 1.2.840.114 350.1.13.10 4.2.7.2.686 [id number] [facility] 2022-10-22 15:15:00 2022-10-22 16:00:00 Ancillary Visit Shefali Whitney Craig L [facility] 1..840.114 350.1.13.10 4.2.7.2.686 [id number] [facility] 2022-10-13 14:30:00 2022-10-13 14:30:00 Outpatient R [facility] [id number] [facility] 2022-10-05 15:15:00 2022-10-05 16:22:29 Ancillary Visit Fabiana Sanderson Craig L [facility] 1.2.840.114 350.1.13.10 4.2.7.2.686 [id number] [facility] 2022-10-05 00:00:00 2022-10-05 00:00:00 Orders Only Doctor Unassigned, [place] [facility] 1.2.840.114 350.1.13.10 4.2.7.2.686 [id number] [facility] 2022-09-09 00:00:00 2022-09-09 00:00:00 Orders Only Doctor Unassigned, [place] [facility] 1.2.840.114 350.1.13.10 4.2.7.2.686 [id number] [facility] 2022-01-11 10:36:00 2022-01-11 14:53:00 Emergency X JOSUE BLAISE [facility] ERT [id number] [facility] 2022-01-11 10:36:00 2022-01-11 14:53:00 Emergency Josue Blaise [facility] 1.2.840.114 350.1.13.10 4.2.7.2.686 [id number] [facility] 2021-08-18 19:42:00 2021-08-19 00:05:00 Emergency X PATRICK SINGH [facility] ERT [id number] [facility] 2021-08-18 19:42:00 2021-08-19 00:05:00 Emergency Patrick Singh [facility] 1.2.840.114 350.1.13.10 4.2.7.2.686 [id number] [facility] 2021-04-13 09:40:00 2021-04-13 09:40:00 Outpatient Paras Ziegler [facility] [id number] [facility] 2020-06-23 11:08:00 2020-06-23 11:08:00 Emergency X [facility] ERT [id number] [facility] Results Test Description Test Time Test Comments Results Result Co mments Source [facility] GLUCOSE (AUTOMATED)2023-04-20 17:29:39* Test Item Value Reference Range Interpretation Comme nts POCT GLU (test code = 8572985873) 154 mg/dL 70-110 H Lab Interpretation (test cod e = 41009-0) Abnormal [facility] GLUCOSE (AUTOMATED)2023-04-20 14:37:51* Test Item Value Reference Range Interpretation Comme nts POCT GLU (test code = 4171221759) 84 mg/dL 70-110 Lab Interpretation (test cod e = 22598-4) Normal [facility] GLUCOSE (AUTOMATED)2023-04-20 03:10:53* Test Item Value Reference Range Interpretation Comme nts POCT GLU (test code = 5434804725) 114 mg/dL 70-110 H Lab Interpretation (test cod e = 07183-6) Abnormal [facility] GLUCOSE (AUTOMATED)2023-04-20 00:46:53* Test Item Value Reference Range Interpretation Comme nts POCT GLU (test code = 2402077489) 120 mg/dL 70-110 H Lab Interpretation (test cod e = 36952-0) Abnormal [facility] GLUCOSE (AUTOMATED)2023-04-19 17:48:46* Test Item Value Reference Range Interpretation Comme nts POCT GLU (test code = 5763705311) 215 mg/dL 70-110 H Lab Interpretation (test cod e = 73784-4) Abnormal [facility] GLUCOSE (AUTOMATED)2023-04-19 02:42:44* Test Item Value Reference Range Interpretation Comme nts POCT GLU (test code = 1240991263) 136 mg/dL 70-110 H Notified Provide r Lab Interpretation (test code = 52852-1) Abnormal [facility] GLUCOSE (AUTOMATED)2023-04-18 23:46:41* Test Item Value Reference Range Interpretation Comme nts POCT GLU (test code = 1607841101) 131 mg/dL 70-110 H Lab Interpretation (test cod e = 31369-1) [facility] [id number] 22:02:05* Test Item Value Reference Range Interpretation Comme nts Blood Culture-Aerobic (test code = 05960-6) No organisms isolated No growth Previous preliminary verified result was Culture In Progress on 04/13/2023 at 1901 CSTPrevious preliminary verified result was No growth at 24 hours on 04/14/2023 at 1601 CSTPrevious preliminary verified result was No growth at 48 hours on 04/15/2023 at 1601 CSTPrevious preliminary verified result was No growth at 72 hours on 04/16/2023 at 1602 SEISMIC INTERPRETER Blood Culture-Anaerobic (test code = 09830-8) No organisms isolated No growth Previous preliminary verified result was Culture In Progress on 04/13/2023 at 1901 CSTPrevious preliminary verified result was No growth at 24 hours on 04/14/2023 at 1601 CSTPrevious preliminary verified result was No growth at 48 hours on 04/15/2023 at 1601 CSTPrevious preliminary verified result was No growth at 72 hours on 04/16/2023 at 1602 SEISMIC INTERPRETER Lab Interpretation (test code = 88682-5) Normal [facility] CULTURE [id number] 22:02:05* Test Item Value Reference Range Interpretation Comme nts Blood Culture-Aerobic (test code = 16377-9) No organisms isolated No growth Previous preliminary verified result was Culture In Progress on 04/13/2023 at 1901 CSTPrevious preliminary verified result was No growth at 24 hours on 04/14/2023 at 1601 CSTPrevious preliminary verified result was No growth at 48 hours on 04/15/2023 at 1601 CSTPrevious preliminary verified result was No growth at 72 hours on 04/16/2023 at 1602 SEISMIC INTERPRETER Blood Culture-Anaerobic (test code = 31687-1) No organisms isolated No growth Previous preliminary verified result was Culture In Progress on 04/13/2023 at 1901 CSTPrevious preliminary verified result was No growth at 24 hours on 04/14/2023 at 1601 CSTPrevious preliminary verified result was No growth at 48 hours on 04/15/2023 at 1601 CSTPrevious preliminary verified result was No growth at 72 hours on 04/16/2023 at 1602 SEISMIC INTERPRETER Lab Interpretation (test code = 51423-1) [facility] (NA, K, CL, CO2, GLUCOSE, BUN, CREATININE, CA)2023-04-18 17:10:51* Test Item Value Reference Range Interpretation Comme nts NA (test code = 7476599897) 138 mmol/L 135-145 K (test code = 4265030239) 3.8 mmol/L 3.5-5.0 CL (test code = 7401385050) 102 mmol/L 98-108 CO2 TOTAL (test code = 6175775105) 28 mmol/L 23-31 AGAP (test code = 7065939216) 8 2-16 BUN (test code = 1586449292) 24 mg/dL 7-23 H GLUCOSE (test code = 5123817676) 142 mg/dL 70-110 H CREATININE (test code = 8766844588) 0.87 mg/dL 0.50-1.04 CALCIUM (test code = 2859056278) 9.1 mg/dL 8.6-10.6 eGFR (test code = 95396-9) 81.8 mL/min/1.73m2 CKD-EPI eGFR (2020). Assuming creatinine has been stable day-to-day for at least three months, the eGFR indicates Category G2 (60 - 89 mL/min/1.73 m2) Lab Interpretation (test code = 86986-4) [facility] 17:10:51* Test Item Value Reference Range Interpretation Comme nts MAGNESIUM (test code = 0306393775) 2.1 mg/dL 1.7-2.4 Lab Interpretation (test cod e = 87530-5) Normal [facility] WITHOUT [id number] 17:01:50* Test Item Value Reference Range Interpretation [...] result as normal/abnormal. MPV (test code = 52427-8) 10.1 fL 9.5-12.9 RDW-CV (test code = 788-0) 18.2 % 12.0-15.5 H RDW-SD (test code = 77843-6) 48.7 fL 39.0-49.9 NRBC x10^3 (test code = 5963949073) 0.05 See_Comment [Automated messa ge] The system which generated this result transmitted reference range: 10*3/?L. The reference range was not used to interpret this result as normal/abnormal. NRBC/100 WBC (test code = 6999724952) 0.3 See_Comment [Automated messa ge] The system which generated this result transmitted reference range: 0.0 - 10.0 /100 WBCs. The reference range was not used to interpret this result as normal/abnormal. IPF % (test code = 7035931878) Lab Interpretation (test code = 09995-2) Abnormal [facility] GLUCOSE (AUTOMATED)2023-04-18 15:46:32* Test Item Value Reference Range Interpretation Comme nts POCT GLU (test code = 2437489932) 184 mg/dL 70-110 H Lab Interpretation (test cod e = 57107-5) Abnormal [facility] GLUCOSE (AUTOMATED)2023-04-18 03:34:32* Test Item Value Reference Range Interpretation Comme nts POCT GLU (test code = 7987371438) 159 mg/dL 70-110 H Lab Interpretation (test cod e = 01873-2) Abnormal [facility] GLUCOSE (AUTOMATED)2023-04-17 23:26:18* Test Item Value Reference Range Interpretation Comme nts POCT GLU (test code = 5359529942) 147 mg/dL 70-110 H Lab Interpretation (test cod e = 55040-0) Abnormal [facility] GLUCOSE (AUTOMATED)2023-04-17 18:40:56* Test Item Value Reference Range Interpretation Comme nts POCT GLU (test code = 4628280400) 115 mg/dL 70-110 H Lab Interpretation (test cod e = 67156-4) [facility] [id number] 18:34:04* Test Item Value Reference Range Interpretation Comme nts SPUTUM CULTURE (test code = 622-1) 1+ Respiratory guillermina: Commensal upper respiratory microorganisms only. Gram stain (test code = 664-3) Moderate PMNs or Mononuclear cells observed CECIL (test code = CECIL) Bacterial pathogens associated with lower respiratory infections were not identified, which include Pseudomonas aeruginosa and Staphylococcus aureus (MRSA or MSSA). [facility] GLUCOSE (AUTOMATED)2023-04-17 15:36:28* Test Item Value Reference Range Interpretation Comme nts POCT GLU (test code = 8436069261) 109 mg/dL 70-110 Lab Interpretation (test cod e = 95232-7) Normal [facility] GLUCOSE (AUTOMATED)2023-04-17 01:46:11* Test Item Value Reference Range Interpretation Comme nts POCT GLU (test code = 6040985780) 106 mg/dL 70-110 Lab Interpretation (test cod e = 64841-8) Normal [facility] GLUCOSE (AUTOMATED)2023-04-16 22:45:17* Test Item Value Reference Range Interpretation Comme nts POCT GLU (test code = 4445472373) 80 mg/dL 70-110 Lab Interpretation (test cod e = 62975-6) Normal [facility] GLUCOSE (AUTOMATED)2023-04-16 18:05:34* Test Item Value Reference Range Interpretation Comme nts POCT GLU (test code = 2099131675) 101 mg/dL 70-110 Lab Interpretation (test cod e = 40179-2) Normal [facility] GLUCOSE (AUTOMATED)2023-04-16 14:50:37* Test Item Value Reference Range Interpretation Comme nts POCT GLU (test code = 5889844318) 121 mg/dL 70-110 H Lab Interpretation (test cod e = 94358-0) Abnormal [facility] WITH [id number] 10:48:50* Test Item Value Reference Range Interpretation [...] g/dL 31.6-35.1 L RDW-SD (test code = 71537-9) 50.4 fL 39.0-49.9 H RDW-CV (test code = 788-0) 18.5 % 12.0-15.5 H PLT (test code = 777-3) 282 See_Comment [Automated message] The system which generated this result transmitted reference range: 166 - 358 10*3/?L. The reference range was not used to interpret this result as normal/abnormal. MPV (test code = 47703-2) 9.7 fL 9.5-12.9 NRBC/100 WBC (test code = 4249573688) 0.6 See_Comment [Automated message] The system which generated this result transmitted reference range: 0.0 - 10.0 /100 WBCs. The reference range was not used to interpret this result as normal/abnormal. NRBC x10^3 (test code = 4129588200) 0.10 See_Comment [Automated message] The system which generated this result transmitted reference range: 10*3/?L. The reference range was not used to interpret this result as normal/abnormal. GRAN MAT (NEUT) % (test code = 770-8) 69.9 % IMM GRAN % (test code = 0064257457) 5.10 % LYMPH % (test code = 736-9) 14.7 % MONO % (test code = 5905-5) 9.7 % EOS % (test code = 713-8) 0.4 % BASO % (test code = 706-2) 0.2 % GRAN MAT x10^3(ANC) (test code = 6053557638) 10.82 10*3/uL 1.88-7.09 H IMM GRAN x10^3 (test code = 0586151562) 0.79 10*3/uL 0.00-0.06 H LYMPH x10^3 (test code = 731-0) 2.28 10*3/uL 1.32-3.29 MONO x10^3 (test code = 742-7) 1.51 10*3/uL 0.33-0.92 H EOS x10^3 (test code = 711-2) 0.06 10*3/uL 0.03-0.39 BASO x10^3 (test code = 704-7) 0.03 10*3/uL 0.01-0.07 BANDS (test code = 7409389684) Increased A Lab Interpretation (test code = 85045-1) Abnormal [facility] METABOLIC PANEL (NA, K, CL, CO2, GLUCOSE, BUN, CREATININE, CA)2023-04-16 10:31:41* Test Item Value Reference Range Interpretation Comme nts NA (test code = 6629433212) 144 mmol/L 135-145 K (test code = 2450107194) 3.6 mmol/L 3.5-5.0 CL (test code = 3124697918) 106 mmol/L 98-108 CO2 TOTAL (test code = 4790370459) 33 mmol/L 23-31 H AGAP (test code = 4842227417) 5 2-16 BUN (test code = 9736938436) 21 mg/dL 7-23 GLUCOSE (test code = 0758808664) 94 mg/dL 70-110 CREATININE (test code = 7094475599) 0.66 mg/dL 0.50-1.04 CALCIUM (test code = 5083922826) 8.8 mg/dL 8.6-10.6 eGFR (test code = 40726-3) 107.7 mL/min/1.73m2 CKD-EPI eGFR (2020). Assuming creatinine has been stable day-to-day for at least three months, the eGFR indicates Category G1 (>= 90 mL/min/1.73 m2) Lab Interpretation (test code = 86582-6) [facility] 10:31:41* Test Item Value Reference Range Interpretation Comme nts MAGNESIUM (test code = 7496117157) 2.0 mg/dL 1.7-2.4 Lab Interpretation (test cod e = 58849-0) Normal [facility] GLUCOSE (AUTOMATED)2023-04-16 10:00:09* Test Item Value Reference Range Interpretation Comme nts POCT GLU (test code = 5980060977) 97 mg/dL 70-110 Lab Interpretation (test cod e = 70866-2) Normal [facility] GLUCOSE (AUTOMATED)2023-04-16 07:04:19* Test Item Value Reference Range Interpretation Comme nts POCT GLU (test code = 8302559402) 146 mg/dL 70-110 H Lab Interpretation (test cod e = 12989-6) [facility] (NA, K, CL, CO2, GLUCOSE, BUN, CREATININE, CA)2023-04-16 02:51:09* Test Item Value Reference Range Interpretation Comme nts NA (test code = 5298463825) 146 mmol/L 135-145 H K (test code = 5763474226) 4.1 mmol/L 3.5-5.0 CL (test code = 9689198700) 110 mmol/L 98-108 H CO2 TOTAL (test code = 9530229016) 31 mmol/L 23-31 AGAP (test code = 2402991317) 5 2-16 BUN (test code = 3429771232) 24 mg/dL 7-23 H GLUCOSE (test code = 2874096468) 98 mg/dL 70-110 CREATININE (test code = 2197644212) 0.65 mg/dL 0.50-1.04 CALCIUM (test code = 0603895369) 9.5 mg/dL 8.6-10.6 eGFR (test code = 07666-1) 108.1 mL/min/1.73m2 CKD-EPI eGFR (2020). Assuming creatinine has been stable day-to-day for at least three months, the eGFR indicates Category G1 (>= 90 mL/min/1.73 m2) Lab Interpretation (test code = 81206-8) [facility]2023-04-16 01:50:31* Test Item Value Reference Range Interpretation Comme [facility] POCT GLU (test code = 7623403668) 89 mg/dL 70-110 Lab Interpretation (test cod e = 84215-4) [facility]23-[facility]-01 23:50:09* Test Item Value Reference Range Interpretation Comme [facility] MAGNESIUM (test code = 7066271403) 2.2 mg/dL 1.7-2.4 Lab Interpretation (test cod e = 40984-7) Normal [facility] (NA, K, CL, CO2, GLUCOSE, BUN, CREATININE, CA)2023-04-15 23:50:09* Test Item Value Reference Range Interpretation Comme [facility] NA (test code = 0402946813) 150 mmol/L 135-145 H K (test code = 4897770802) 4.4 mmol/L 3.5-5.0 CL (test code = 5884792032) 112 mmol/L 98-108 H CO2 TOTAL (test code = 2179295158) 34 mmol/L 23-31 H AGAP (test code = 3627252048) 4 2-16 BUN (test code = 2715222771) 26 mg/dL 7-23 H GLUCOSE (test code = 2318324474) 107 mg/dL 70-110 CREATININE (test code = 8174752641) 0.68 mg/dL 0.50-1.04 CALCIUM (test code = 3840716282) 9.6 mg/dL 8.6-10.6 eGFR (test code = 38585-3) 106.9 mL/min/1.73m2 CKD-EPI eGFR (2020). Assuming creatinine has been stable day-to-day for at least three months, the eGFR indicates Category G1 (>= 90 mL/min/1.73 m2) Lab Interpretation (test code = 74496-5) Abnormal [facility] GLUCOSE (AUTOMATED)2023-04-15 15:23:47* Test Item Value Reference Range Interpretation Comme nts POCT GLU (test code = 2879136975) 165 mg/dL 70-110 H Lab Interpretation (test cod e = 90552-1) Abnormal [facility] METABOLIC PANEL (NA, K, CL, CO2, GLUCOSE, BUN, CREATININE, CA)2023-04-15 10:45:28* Test Item Value Reference Range Interpretation Comme nts NA (test code = 2300711013) 147 mmol/L 135-145 H K (test code = 2977757701) 5.0 mmol/L 3.5-5.0 CL (test code = 5655048548) 110 mmol/L 98-108 H CO2 TOTAL (test code = 4433691101) 31 mmol/L 23-31 AGAP (test code = 5314270783) 6 2-16 BUN (test code = 4610913140) 23 mg/dL 7-23 GLUCOSE (test code = 8058684748) 167 mg/dL 70-110 H CREATININE (test code = 1556609009) 0.74 mg/dL 0.50-1.04 CALCIUM (test code = 4034246995) 9.4 mg/dL 8.6-10.6 eGFR (test code = 29521-7) 99.3 mL/min/1.73m2 CKD-EPI eGFR (2020). Assuming creatinine has been stable day-to-day for at least three months, the eGFR indicates Category G1 (>= 90 mL/min/1.73 m2) Lab Interpretation (test code = 37246-1) [facility] 10:45:28* Test Item Value Reference Range Interpretation Comme nts MAGNESIUM (test code = 8264311233) 2.2 mg/dL 1.7-2.4 Lab Interpretation (test cod e = 66572-9) Normal [facility] WITH [id number] 10:29:32* Test Item Value Reference Range Interpretation [...] g/dL 31.6-35.1 L RDW-SD (test code = 61069-3) 50.7 fL 39.0-49.9 H RDW-CV (test code = 788-0) 18.5 % 12.0-15.5 H PLT (test code = 777-3) 314 See_Comment [Automated message] The system which generated this result transmitted reference range: 166 - 358 10*3/?L. The reference range was not used to interpret this result as normal/abnormal. MPV (test code = 29573-2) 10.1 fL 9.5-12.9 NRBC/100 WBC (test code = 7117961596) 0.4 See_Comment [Automated message] The system which generated this result transmitted reference range: 0.0 - 10.0 /100 WBCs. The reference range was not used to interpret this result as normal/abnormal. NRBC x10^3 (test code = 5900693907) 0.05 See_Comment [Automated message] The system which generated this result transmitted reference range: 10*3/?L. The reference range was not used to interpret this result as normal/abnormal. GRAN MAT (NEUT) % (test code = 770-8) 84.0 % IMM GRAN % (test code = 2187646705) 5.60 % LYMPH % (test code = 736-9) 6.7 % MONO % (test code = 5905-5) 3.5 % EOS % (test code = 713-8) 0.0 % BASO % (test code = 706-2) 0.2 % GRAN MAT x10^3(ANC) (test code = 6316567280) 11.16 10*3/uL 1.88-7.09 H IMM GRAN x10^3 (test code = 2349250510) 0.74 10*3/uL 0.00-0.06 H LYMPH x10^3 (test code = 731-0) 0.89 10*3/uL 1.32-3.29 L MONO x10^3 (test code = 742-7) 0.46 10*3/uL 0.33-0.92 EOS x10^3 (test code = 711-2) 0.03-0.39 L BASO x10^3 (test code = 704-7) 0.03 10*3/uL 0.01-0.07 Lab Interpretation (test code = 52533-2) [facility] [id number] 10:02:01* Test Item Value Reference Range Interpretation Comme nts Blood Culture-Aerobic (test code = 93441-9) No organisms isolated No growth Previous preliminary verified result was Culture In Progress on 04/10/2023 at 0701 CSTPrevious preliminary verified result was No growth at 24 hours on 04/11/2023 at 0401 CSTPrevious preliminary verified result was No growth at 48 hours on 04/12/2023 at 0401 CSTPrevious preliminary verified result was No growth at 72 hours on 04/13/2023 at 0401 SEISMIC INTERPRETER Blood Culture-Anaerobic (test code = 54364-0) No organisms isolated No growth Previous preliminary verified result was Culture In Progress on 04/10/2023 at 0701 CSTPrevious preliminary verified result was No growth at 24 hours on 04/11/2023 at 0401 CSTPrevious preliminary verified result was No growth at 48 hours on 04/12/2023 at 0401 CSTPrevious preliminary verified result was No growth at 72 hours on 04/13/2023 at 0401 SEISMIC INTERPRETER Lab Interpretation (test code = 51892-2) Normal [facility] GLUCOSE (AUTOMATED)2023-04-15 09:40:18* Test Item Value Reference Range Interpretation Comme nts POCT GLU (test code = 6999436149) 175 mg/dL 70-110 H Lab Interpretation (test cod e = 24530-3) Abnormal [facility] GLUCOSE (AUTOMATED)2023-04-15 05:52:07* Test Item Value Reference Range Interpretation Comme nts POCT GLU (test code = 1691076126) 160 mg/dL 70-110 H Lab Interpretation (test cod e = 80062-6) [facility] + LACTIC [id number] 02:24:38* Test Item Value Reference Range Interpretation Comme nts PH (test code = 6080216847) 7.40 7.32-7.42 PCO2 CARLOS (test code = 3868335869) 44 See_Comment [Automated messa ge] The system which generated this result transmitted reference range: 41 - 51 mmHg. The reference range was not used to interpret this result as normal/abnormal. PO2 CARLOS (test code = 0550040593) 40 See_Comment [Automated messa ge] The system which generated this result transmitted reference range: 25 - 40 mmHg. The reference range was not used to interpret this result as normal/abnormal. HCO3 CARLOS (test code = 1330664640) 26 See_Comment [Automated messa ge] The system which generated this result transmitted reference range: 24 - 28 mEq/L. The reference range was not used to interpret this result as normal/abnormal. AC VBE(BEAKER) (test code = [id number]) 1.7 mEq/L THB CARLOS (test code = [id number]) 7.9 g/dL 12.0-16.0 LL %O2HB CARLOS (test code = [id number]) 67.9 % 52.0-63.0 H %COHB CARLOS (test code = [id number]) 0.1 % 0.0-1.5 %METHB CARLOS (test code = [id number]) 0.3 % 0.4-1.5 L VOL%O2 CARLOS (test code = [id number]) 7.6 % 6.0-12.0 NA (test code = 0270164549) 147 mmol/L 135-145 H K+ (test code = 3626086630) 4.7 mmol/L 3.5-5.0 AC CA IONZ (test code = 3055685278) 4.80 mg/dL 4.50-5.30 GLUCOSE (test code = 4670948789) 131 mg/dL 70-110 H LACTIC ACID (test code = 5607265922) 0.76 mmol/L 0.50-2.20 Lab Interpretation (test code = 00059-0) [facility] 02:09:20* Test Item Value Reference Range Interpretation Comme [facility] POCT GLU (test code = 6848619423) 148 mg/dL 70-110 H Lab Interpretation (test cod e = 78423-2) [facility] 00:22:49* Test Item Value Reference Range Interpretation Comme nts PHOSPHORUS (test code = 2882347181) 4.3 mg/dL 2.5-5.0 Lab Interpretation (test cod e = 84127-1) [facility] (NA, K, CL, CO2, GLUCOSE, BUN, CREATININE, CA)2023-04-14 21:33:21* Test Item Value Reference Range Interpretation Comme nts NA (test code = 2306149996) 149 mmol/L 135-145 H K (test code = 7898597721) 4.5 mmol/L 3.5-5.0 CL (test code = 8036576467) 115 mmol/L 98-108 H CO2 TOTAL (test code = 8262529706) 29 mmol/L 23-31 AGAP (test code = 2079979999) 5 2-16 BUN (test code = 9924847587) 20 mg/dL 7-23 GLUCOSE (test code = 1320628680) 138 mg/dL 70-110 H CREATININE (test code = 0452727523) 0.75 mg/dL 0.50-1.04 CALCIUM (test code = 1117300170) 8.9 mg/dL 8.6-10.6 eGFR (test code = 46339-9) 97.7 mL/min/1.73m2 CKD-EPI eGFR (2020). Assuming creatinine has been stable day-to-day for at least three months, the eGFR indicates Category G1 (>= 90 mL/min/1.73 m2) Lab Interpretation (test code = 65184-1) [facility] 21:33:21* Test Item Value Reference Range Interpretation Comme [facility] MAGNESIUM (test code = 5879893548) 1.8 mg/dL 1.7-2.4 Lab Interpretation (test cod e = 17331-4) [facility]23-[facility]-14 18:16:52* Test Item Value Reference Range Interpretation Comme [facility] POCT GLU (test code = 3079236733) 128 mg/dL 70-110 H Lab Interpretation (test cod e = 49471-1) [facility] 15:27:55* Test Item Value Reference Range Interpretation Comme [facility] LIPASE (test code = 1648666360) 164 U/L 0-220 Lab Interpretation (test cod e = 21921-7) [facility] + LACTIC [id number] 15:02:09* Test Item Value Reference Range Interpretation Comme nts PH (test code = 9604816555) 7.34 7.32-7.42 PCO2 CARLOS (test code = 8843328639) 49 See_Comment [Automated messa ge] The system which generated this result transmitted reference range: 41 - 51 mmHg. The reference range was not used to interpret this result as normal/abnormal. PO2 CARLOS (test code = 6294475509) 45 See_Comment H [Automated messa ge] The system which generated this result transmitted reference range: 25 - 40 mmHg. The reference range was not used to interpret this result as normal/abnormal. HCO3 CARLOS (test code = 0858707472) 26 See_Comment [Automated messa ge] The system which generated this result transmitted reference range: 24 - 28 mEq/L. The reference range was not used to interpret this result as normal/abnormal. AC VBE(BEAKER) (test code = 2892372037) 0.1 mEq/L THB CARLOS (test code = 8161900286) 10.8 g/dL 12.0-16.0 L %O2HB CARLOS (test code = 2473055760) 75.1 % 52.0-63.0 H %COHB CARLOS (test code = 2423790006) 0.1 % 0.0-1.5 %METHB CARLOS (test code = 7791389387) 0.0 % 0.4-1.5 L VOL%O2 CARLOS (test code = 2954954943) 11.4 % 6.0-12.0 NA (test code = 4813321558) 146 mmol/L 135-145 H K+ (test code = 6854573144) 3.4 mmol/L 3.5-5.0 L AC CA IONZ (test code = 1144666080) 5.00 mg/dL 4.50-5.30 GLUCOSE (test code = 6154799553) 110 mg/dL 70-110 LACTIC ACID (test code = 5379112691) 0.67 mmol/L 0.50-2.20 Lab Interpretation (test code = 39927-0) [facility] 10:53:56* Test Item Value Reference Range Interpretation Comme nts PHOSPHORUS (test code = 8401019453) 3.4 mg/dL 2.5-5.0 Lab Interpretation (test cod e = 62798-5) [facility] (NA, K, CL, CO2, GLUCOSE, BUN, CREATININE, CA)2023-04-14 10:53:55* Test Item Value Reference Range Interpretation Comme nts NA (test code = 6849238712) 143 mmol/L 135-145 K (test code = 4922308633) 3.0 mmol/L 3.5-5.0 L CL (test code = 3713541328) 111 mmol/L 98-108 H CO2 TOTAL (test code = 3747796974) 29 mmol/L 23-31 AGAP (test code = 5178311294) 3 2-16 BUN (test code = 5977205450) 22 mg/dL 7-23 GLUCOSE (test code = 6148031457) 123 mg/dL 70-110 H CREATININE (test code = 1609605128) 0.85 mg/dL 0.50-1.04 CALCIUM (test code = 0139156231) 8.8 mg/dL 8.6-10.6 eGFR (test code = 83102-8) 84.1 mL/min/1.73m2 CKD-EPI eGFR (2020). Assuming creatinine has been stable day-to-day for at least three months, the eGFR indicates Category G2 (60 - 89 mL/min/1.73 m2) Lab Interpretation (test code = 89257-4) [facility] 10:53:55* Test Item Value Reference Range Interpretation Comme nts MAGNESIUM (test code = 2260965866) 1.8 mg/dL 1.7-2.4 Lab Interpretation (test cod e = 26067-1) [facility] WITH [id number] 10:29:17* Test Item Value Reference Range Interpretation [...] g/dL 31.6-35.1 L RDW-SD (test code = 66044-8) 52.5 fL 39.0-49.9 H RDW-CV (test code = 788-0) 18.4 % 12.0-15.5 H PLT (test code = 777-3) 342 See_Comment [Automated messa ge] The system which generated this result transmitted reference range: 166 - 358 10*3/?L. The reference range was not used to interpret this result as normal/abnormal. MPV (test code = 69412-5) 9.8 fL 9.5-12.9 NRBC/100 WBC (test code = 6275724576) 0.4 See_Comment [Automated [employer] ssage] The system which generated this result transmitted reference range: 0.0 - 10.0 /100 WBCs. The reference range was not used to interpret this result as normal/abnormal. NRBC x10^3 (test code = 6872469834) 0.05 See_Comment [Automated Keoghsa ge] The system which generated this result transmitted reference range: 10*3/?L. The reference range was not used to interpret this result as normal/abnormal. GRAN MAT (NEUT) % (test code = 770-8) 72.8 % IMM GRAN % (test code = 9791522737) 3.30 % LYMPH % (test code = 736-9) 13.4 % MONO % (test code = 5905-5) 9.1 % EOS % (test code = 713-8) 1.2 % BASO % (test code = 706-2) 0.2 % GRAN MAT x10^3(ANC) (test code = 3604254188) 8.92 10*3/uL 1.88-7.09 H IMM GRAN x10^3 (test code = 2616201157) 0.41 10*3/uL 0.00-0.06 H LYMPH x10^3 (test code = 731-0) 1.65 10*3/uL 1.32-3.29 MONO x10^3 (test code = 742-7) 1.12 10*3/uL 0.33-0.92 H EOS x10^3 (test code = 711-2) 0.15 10*3/uL 0.03-0.39 BASO x10^3 (test code = 704-7) 0.01-0.07 POLYCHROMASIA (test code = 52363-7) 2+ See_Comment [Automated Keoghsa ge] The system which generated this result transmitted reference range: 2+. The reference range was not used to interpret this result as normal/abnormal. REACT LYMPHS (test code = 0125127756) Rare Lab Interpretation (test code = 35755-3) Abnormal [facility] GLUCOSE (AUTOMATED)2023-04-14 09:44:14* Test Item Value Reference Range Interpretation Comme nts POCT GLU (test code = 8419972893) 130 mg/dL 70-110 H Lab Interpretation (test cod e = 59423-0) [facility] HospitalFERRITIN [id number] 08:46:39* Test Item Value Reference Range Interpretation Comme nts FERRITIN (test code = 5920034585) 12.8 ng/mL 6.0-137.0 CECIL (test code = CECIL) Biotin has been reported to cause a negative bias, interpret results relative to patient's use of biotin. Lab Interpretation (test code = 47187-8) Normal [facility] GLUCOSE (AUTOMATED)2023-04-14 06:13:40* Test Item Value Reference Range Interpretation Comme nts POCT GLU (test code = 2256875747) 116 mg/dL 70-110 H Lab Interpretation (test cod e = 97141-0) [facility] HospitalLOW-DENSITY LIPOPROTEIN, [id number] 03:10:41* Test Item Value Reference Range Interpretation Comme nts dLDL Chol (test code = 48956-6) 62 mg/dL <=130 Lab Interpretation (test cod e = 93765-8) [facility] Hospital[facility] (08302)(TOTAL CHOLESTEROL, TRIGLYCERIDES, HDL)2023-04-14 02:52:51* Test Item Value Reference Range Interpretation Comme nts CHOL (test code = 0515095071) 147 mg/dL 120-200 HDL (test code = 6856636825) 22 mg/dL >=50 L HDLC RATIO (test code = 8117146674) 6.7 <=4.5 H TRIG (test code = 5852018279) 478 mg/dL 30-170 H LDL CHOL (test code = 45358-0) Unable to calcul ate LDL due to elevated triglyceride level greater than 400 mg/dL. VLDL (test code = 2403220667) 96 mg/dL 5-60 H Lab Interpretation (test code = 38462-3) [facility] + LACTIC [id number] 02:47:16* Test Item Value Reference Range Interpretation Comme nts PH (test code = 1793544533) 7.32 7.32-7.42 PCO2 CARLOS (test code = 8379123451) 55 See_Comment H [Automated messa ge] The system which generated this result transmitted reference range: 41 - 51 mmHg. The reference range was not used to interpret this result as normal/abnormal. PO2 CARLOS (test code = 9971381471) 55 See_Comment HH [Automated messa ge] The system which generated this result transmitted reference range: 25 - 40 mmHg. The reference range was not used to interpret this result as normal/abnormal. HCO3 CARLOS (test code = 9391561758) 27 See_Comment [Automated messa ge] The system which generated this result transmitted reference range: 24 - 28 mEq/L. The reference range was not used to interpret this result as normal/abnormal. AC VBE(BEAKER) (test code = 0722208386) 1.2 mEq/L THB CARLOS (test code = 2359607611) 8.7 g/dL 12.0-16.0 L %O2HB CARLOS (test code = 5148567187) 83.5 % 52.0-63.0 H %COHB CARLOS (test code = 7815554383) 0.2 % 0.0-1.5 %METHB CARLOS (test code = 4334321321) 0.3 % 0.4-1.5 L VOL%O2 CARLOS (test code = 4078332204) 10.3 % 6.0-12.0 NA (test code = 3900434823) 143 mmol/L 135-145 K+ (test code = 1965306931) 3.5 mmol/L 3.5-5.0 AC CA IONZ (test code = 7591718731) 5.10 mg/dL 4.50-5.30 GLUCOSE (test code = 0042532456) 114 mg/dL 70-110 H LACTIC ACID (test code = 5661780123) 0.99 mmol/L 0.50-2.20 Lab Interpretation (test code = 68709-6) Abnormal [facility] GLUCOSE (AUTOMATED)2023-04-14 02:37:46* Test Item Value Reference Range Interpretation Comme nts POCT GLU (test code = 1114299093) 119 mg/dL 70-110 H Lab Interpretation (test cod e = 77502-6) Abnormal [facility] GLUCOSE (AUTOMATED)2023-04-14 02:37:46* Test Item Value Reference Range Interpretation Comme nts POCT GLU (test code = 0931138080) 135 mg/dL 70-110 H Lab Interpretation (test cod e = 57339-8) [facility]23-[facility] 22:59:57* Test Item Value Reference Range Interpretation Comme nts MAGNESIUM (test code = 3832790800) 1.8 mg/dL 1.7-2.4 Lab Interpretation (test cod e = 60559-3) Normal [facility] GLUCOSE (AUTOMATED)2023-04-13 22:23:43* Test Item Value Reference Range Interpretation Comme nts POCT GLU (test code = 3156285017) 129 mg/dL 70-110 H Notified Provide r Lab Interpretation (test code = 03286-4) Abnormal [facility] GLUCOSE (AUTOMATED)2023-04-13 17:30:24* Test Item Value Reference Range Interpretation Comme nts POCT GLU (test code = 7184320595) 113 mg/dL 70-110 H Lab Interpretation (test cod e = 38709-8) [facility] + LACTIC [id number] 16:39:56* Test Item Value Reference Range Interpretation Comme nts PH (test code = 1293108066) 7.29 7.32-7.42 L PCO2 CARLOS (test code = 4147032758) 58 See_Comment H [Automated messa ge] The system which generated this result transmitted reference range: 41 - 51 mmHg. The reference range was not used to interpret this result as normal/abnormal. PO2 CARLOS (test code = 6403404879) 42 See_Comment H [Automated messa ge] The system which generated this result transmitted reference range: 25 - 40 mmHg. The reference range was not used to interpret this result as normal/abnormal. HCO3 CARLOS (test code = 6091465950) 27 See_Comment [Automated messa ge] The system which generated this result transmitted reference range: 24 - 28 mEq/L. The reference range was not used to interpret this result as normal/abnormal. AC VBE(BEAKER) (test code = 2947489037) 0.3 mEq/L THB CARLOS (test code = 6027102314) 8.1 g/dL 12.0-16.0 LL %O2HB CARLOS (test code = 6583625491) 73.6 % 52.0-63.0 H %COHB CARLOS (test code = 2636219362) 0.0 % 0.0-1.5 %METHB CARLOS (test code = 7270063247) 0.3 % 0.4-1.5 L VOL%O2 CARLOS (test code = 9290219724) 8.4 % 6.0-12.0 NA (test code = 7811603788) 140 mmol/L 135-145 K+ (test code = 3252792141) 3.7 mmol/L 3.5-5.0 AC CA IONZ (test code = 3733985801) 5.00 mg/dL 4.50-5.30 GLUCOSE (test code = 2127553175) 87 mg/dL 70-110 LACTIC ACID (test code = 3905070538) 0.89 mmol/L 0.50-2.20 Lab Interpretation (test code = 15480-8) [facility]23-[facility]-13 13:42:40* Test Item Value Reference Range Interpretation Comme nts POCT GLU (test code = 0049921605) 105 mg/dL 70-110 Lab Interpretation (test cod e = 37921-0) [facility]23-[facility] 10:42:50* Test Item Value Reference Range Interpretation Comme nts PHOSPHORUS (test code = 8875306314) 2.1 mg/dL 2.5-5.0 L Lab Interpretation (test cod e = 07996-1) [facility] (NA, K, CL, CO2, GLUCOSE, BUN, CREATININE, CA)2023-04-13 10:42:50* Test Item Value Reference Range Interpretation Comme nts NA (test code = 4127421604) 143 mmol/L 135-145 K (test code = 5125943614) 3.9 mmol/L 3.5-5.0 CL (test code = 6752580837) 110 mmol/L 98-108 H CO2 TOTAL (test code = 5952895680) 30 mmol/L 23-31 AGAP (test code = 0828127333) 3 2-16 BUN (test code = 6057215644) 26 mg/dL 7-23 H GLUCOSE (test code = 4741786946) 88 mg/dL 70-110 CREATININE (test code = 6464133784) 0.96 mg/dL 0.50-1.04 CALCIUM (test code = 7820170179) 8.9 mg/dL 8.6-10.6 eGFR (test code = 91818-4) 72.7 mL/min/1.73m2 CKD-EPI eGFR (2020). Assuming creatinine has been stable day-to-day for at least three months, the eGFR indicates Category G2 (60 - 89 mL/min/1.73 m2) Lab Interpretation (test code = 87670-7) [facility] 10:42:50* Test Item Value Reference Range Interpretation Comme nts MAGNESIUM (test code = 2658197231) 1.8 mg/dL 1.7-2.4 Lab Interpretation (test cod e = 44718-8) Normal [facility] WITH [id number] 10:11:10* Test Item Value Reference Range Interpretation [...] g/dL 31.6-35.1 L RDW-SD (test code = 89630-8) 52.9 fL 39.0-49.9 H RDW-CV (test code = 788-0) 18.0 % 12.0-15.5 H PLT (test code = 777-3) 374 See_Comment H [Automated message] The system which generated this result transmitted reference range: 166 - 358 10*3/?L. The reference range was not used to interpret this result as normal/abnormal. MPV (test code = 85690-9) 10.5 fL 9.5-12.9 NRBC/100 WBC (test code = 9550811395) 0.4 See_Comment [Automated message] The system which generated this result transmitted reference range: 0.0 - 10.0 /100 WBCs. The reference range was not used to interpret this result as normal/abnormal. NRBC x10^3 (test code = 2434119278) 0.06 See_Comment [Automated message] The system which generated this result transmitted reference range: 10*3/?L. The reference range was not used to interpret this result as normal/abnormal. GRAN MAT (NEUT) % (test code = 770-8) 78.0 % IMM GRAN % (test code = 6403970368) 1.20 % LYMPH % (test code = 736-9) 12.3 % MONO % (test code = 5905-5) 8.0 % EOS % (test code = 713-8) 0.3 % BASO % (test code = 706-2) 0.2 % GRAN MAT x10^3(ANC) (test code = 5210690961) 11.52 10*3/uL 1.88-7.09 H IMM GRAN x10^3 (test code = 3031789780) 0.18 10*3/uL 0.00-0.06 H LYMPH x10^3 (test code = 731-0) 1.82 10*3/uL 1.32-3.29 MONO x10^3 (test code = 742-7) 1.18 10*3/uL 0.33-0.92 H EOS x10^3 (test code = 711-2) 0.05 10*3/uL 0.03-0.39 BASO x10^3 (test code = 704-7) 0.03 10*3/uL 0.01-0.07 Lab Interpretation (test code = 02702-1) [facility] + LACTIC [id number] 10:00:46* Test Item Value Reference Range Interpretation Comme nts PH (test code = 1456014677) 7.31 7.32-7.42 L PCO2 CARLOS (test code = 8140088255) 61 See_Comment H [Automated messa ge] The system which generated this result transmitted reference range: 41 - 51 mmHg. The reference range was not used to interpret this result as normal/abnormal. PO2 CARLOS (test code = 4189408307) 45 See_Comment H [Automated messa ge] The system which generated this result transmitted reference range: 25 - 40 mmHg. The reference range was not used to interpret this result as normal/abnormal. HCO3 CARLOS (test code = 1144854585) 30 See_Comment H [Automated messa ge] The system which generated this result transmitted reference range: 24 - 28 mEq/L. The reference range was not used to interpret this result as normal/abnormal. AC VBE(BEAKER) (test code = 4779358067) 3.2 mEq/L THB CARLOS (test code = 4776006163) 8.1 g/dL 12.0-16.0 LL %O2HB CARLOS (test code = 6288170970) 80.8 % 52.0-63.0 H %COHB CARLOS (test code = 0707789091) 0.2 % 0.0-1.5 %METHB CARLOS (test code = 4321509501) 0.1 % 0.4-1.5 L VOL%O2 CARLOS (test code = 5174246593) 9.2 % 6.0-12.0 NA (test code = 3605600487) 144 mmol/L 135-145 K+ (test code = 6917017781) 3.9 mmol/L 3.5-5.0 AC CA IONZ (test code = 0189608974) 4.90 mg/dL 4.50-5.30 GLUCOSE (test code = 7409496769) 88 mg/dL 70-110 LACTIC ACID (test code = 3454101462) 0.87 mmol/L 0.50-2.20 QUES Lab Interpretation (test code = 49760-6) [facility]13 09:51:05* Test Item Value Reference Range Interpretation Comme nts POCT GLU (test code = 6998110357) 100 mg/dL 70-110 Lab Interpretation (test cod e = 22544-1) Normal [facility] METABOLIC PANEL (NA, K, CL, CO2, GLUCOSE, BUN, CREATININE, CA)2023-04-13 06:29:57* Test Item Value Reference Range Interpretation Comme nts NA (test code = 5495487998) 142 mmol/L 135-145 K (test code = 7645181188) 4.1 mmol/L 3.5-5.0 CL (test code = 5492327710) 109 mmol/L 98-108 H CO2 TOTAL (test code = 1873279869) 32 mmol/L 23-31 H AGAP (test code = 0300502025) 1 2-16 L BUN (test code = 4146889669) 27 mg/dL 7-23 H GLUCOSE (test code = 6026084491) 93 mg/dL 70-110 CREATININE (test code = 4771172377) 1.00 mg/dL 0.50-1.04 CALCIUM (test code = 8858318897) 8.6 mg/dL 8.6-10.6 eGFR (test code = 95069-1) 69.2 mL/min/1.73m2 CKD-EPI eGFR (2020). Assuming creatinine has been stable day-to-day for at least three months, the eGFR indicates Category G2 (60 - 89 mL/min/1.73 m2) Lab Interpretation (test code = 29331-9) Abnormal [facility] GLUCOSE (AUTOMATED)2023-04-13 05:51:07* Test Item Value Reference Range Interpretation Comme nts POCT GLU (test code = 2636563539) 100 mg/dL 70-110 Lab Interpretation (test cod e = 56683-9) [facility] LACTIC [id number] 04:25:48* Test Item Value Reference Range Interpretation Comme nts PH (test code = 4854575610) 7.30 7.32-7.42 L PCO2 CARLOS (test code = 5433342123) 63 See_Comment H [Automated messa ge] The system which generated this result transmitted reference range: 41 - 51 mmHg. The reference range was not used to interpret this result as normal/abnormal. PO2 CARLOS (test code = 4769430621) 46 See_Comment H [Automated messa ge] The system which generated this result transmitted reference range: 25 - 40 mmHg. The reference range was not used to interpret this result as normal/abnormal. HCO3 CARLOS (test code = 8880291592) 30 See_Comment H [Automated messa ge] The system which generated this result transmitted reference range: 24 - 28 mEq/L. The reference range was not used to interpret this result as normal/abnormal. AC VBE(BEAKER) (test code = 8955355159) 3.2 mEq/L THB CARLOS (test code = 8709388387) 8.3 g/dL 12.0-16.0 LL %O2HB CARLOS (test code = 4932518851) 81.0 % 52.0-63.0 H %COHB CARLOS (test code = 2016489647) 0.3 % 0.0-1.5 %METHB CARLOS (test code = 4908559985) 0.3 % 0.4-1.5 L VOL%O2 CARLOS (test code = 7085713646) 9.5 % 6.0-12.0 NA (test code = 0228644067) 143 mmol/L 135-145 K+ (test code = 4176364522) 4.1 mmol/L 3.5-5.0 AC CA IONZ (test code = 8382729898) 4.90 mg/dL 4.50-5.30 GLUCOSE (test code = 1966629260) 88 mg/dL 70-110 LACTIC ACID (test code = 5939304121) 0.86 mmol/L 0.50-2.20 Lab Interpretation (test code = 93950-2) Abnormal [facility] METABOLIC PANEL (NA, K, CL, CO2, GLUCOSE, BUN, CREATININE, CA)2023-04-13 02:49:10* Test Item Value Reference Range Interpretation Comme nts NA (test code = 7643147692) 142 mmol/L 135-145 K (test code = 9374896398) 4.1 mmol/L 3.5-5.0 CL (test code = 4535147564) 109 mmol/L 98-108 H CO2 TOTAL (test code = 0570933767) 32 mmol/L 23-31 H AGAP (test code = 6787153810) 1 2-16 L BUN (test code = 0817905659) 27 mg/dL 7-23 H GLUCOSE (test code = 0142206229) 100 mg/dL 70-110 CREATININE (test code = 7796288921) 1.03 mg/dL 0.50-1.04 CALCIUM (test code = 3723755089) 8.6 mg/dL 8.6-10.6 eGFR (test code = 53474-9) 66.8 mL/min/1.73m2 CKD-EPI eGFR (2020). Assuming creatinine has been stable day-to-day for at least three months, the eGFR indicates Category G2 (60 - 89 mL/min/1.73 m2) Lab Interpretation (test code = 76995-3) Abnormal [facility] WITHOUT [id number] 02:32:50* Test Item Value Reference Range Interpretation [...] result as normal/abnormal. MPV (test code = 96427-0) 9.7 fL 9.5-12.9 RDW-CV (test code = 788-0) 18.1 % 12.0-15.5 H RDW-SD (test code = 14881-5) 52.1 fL 39.0-49.9 H NRBC x10^3 (test code = 9110213729) 0.07 See_Comment [Automated [employer] ge] The system which generated this result transmitted reference range: 10*3/?L. The reference range was not used to interpret this result as normal/abnormal. NRBC/100 WBC (test code = 9778079194) 0.4 See_Comment [Automated [employer] ge] The system which generated this result transmitted reference range: 0.0 - 10.0 /100 WBCs. The reference range was not used to interpret this result as normal/abnormal. IPF % (test code = 7948243113) Lab Interpretation (test code = 42497-9) [facility]23-[facility]-13 02:21:07* Test Item Value Reference Range Interpretation Comme [facility] POCT GLU (test code = 6249873465) 112 mg/dL 70-110 H Lab Interpretation (test cod e = 30011-0) Abnormal [facility] METABOLIC PANEL (NA, K, CL, CO2, GLUCOSE, BUN, CREATININE, CA)2023-04-12 22:25:18* Test Item Value Reference Range Interpretation Comme [facility] NA (test code = 1899038263) 145 mmol/L 135-145 K (test code = 2876596857) 4.4 mmol/L 3.5-5.0 CL (test code = 4846967697) 113 mmol/L 98-108 H CO2 TOTAL (test code = 4002805113) 28 mmol/L 23-31 AGAP (test code = 7466187194) 4 2-16 BUN (test code = 5827464085) 30 mg/dL 7-23 H GLUCOSE (test code = 3337540898) 99 mg/dL 70-110 CREATININE (test code = 4964107744) 1.07 mg/dL 0.50-1.04 H CALCIUM (test code = 2321230064) 8.7 mg/dL 8.6-10.6 eGFR (test code = 77672-8) 63.8 mL/min/1.73m2 CKD-EPI eGFR (2020). Assuming creatinine has been stable day-to-day for at least three months, the eGFR indicates Category G2 (60 - 89 mL/min/1.73 m2) Lab Interpretation (test code = 68142-9) [facility] Test Item Value Reference Range Interpretation Comme nts MAGNESIUM (test code = 0140411325) 2.1 mg/dL 1.7-2.4 Lab Interpretation (test cod e = 50251-7) [facility]12 21:45:44* Test Item Value Reference Range Interpretation Comme nts POCT GLU (test code = 7817367579) 108 mg/dL 70-110 Lab Interpretation (test cod e = 14466-8) [facility]2589-26-88 21:38:52* Test Item Value Reference Range Interpretation [...] g/dL 31.6-35.1 L RDW-SD (test code = 47855-4) 53.0 fL 39.0-49.9 H RDW-CV (test code = 788-0) 18.1 % 12.0-15.5 H PLT (test code = 777-3) 379 See_Comment H [Automated message] The system which generated this result transmitted reference range: 166 - 358 10*3/?L. The reference range was not used to interpret this result as normal/abnormal. MPV (test code = 55148-9) 10.0 fL 9.5-12.9 NRBC/100 WBC (test code = 7603548935) 0.6 See_Comment [Automated message] The system which generated this result transmitted reference range: 0.0 - 10.0 /100 WBCs. The reference range was not used to interpret this result as normal/abnormal. NRBC x10^3 (test code = 5544689671) 0.10 See_Comment [Automated message] The system which generated this result transmitted reference range: 10*3/?L. The reference range was not used to interpret this result as normal/abnormal. GRAN MAT (NEUT) % (test code = 770-8) 78.8 % IMM GRAN % (test code = 1929652969) 1.40 % LYMPH % (test code = 736-9) 10.8 % MONO % (test code = 5905-5) 8.9 % EOS % (test code = 713-8) 0.0 % BASO % (test code = 706-2) 0.1 % GRAN MAT x10^3(ANC) (test code = 0346438769) 13.33 10*3/uL 1.88-7.09 H IMM GRAN x10^3 (test code = 7683555023) 0.24 10*3/uL 0.00-0.06 H LYMPH x10^3 (test code = 731-0) 1.82 10*3/uL 1.32-3.29 MONO x10^3 (test code = 742-7) 1.51 10*3/uL 0.33-0.92 H EOS x10^3 (test code = 711-2) 0.03-0.39 L BASO x10^3 (test code = 704-7) 0.01-0.07 POLYCHROMASIA (test code = 98217-4) 2+ See_Comment [Automated message] The system which generated this result transmitted reference range: 2+. The reference range was not used to interpret this result as normal/abnormal. Lab Interpretation (test code = 79391-0) [facility] Lactic [id number] 20:56:11* Test Item Value Reference Range Interpretation Comme nts PH (test code = 2) 7.22 7.35-7.45 L PCO2 (test code = 7120025332) 63 See_Comment H [Automated messa ge] The system which generated this result transmitted reference range: 35 - 45 mmHg. The reference range was not used to interpret this result as normal/abnormal. PO2 (test code = 8877509127) 150 See_Comment H [Automated messa ge] The system which generated this result transmitted reference range: 80 - 100 mmHg. The reference range was not used to interpret this result as normal/abnormal. HCO3 (test code = 5658102128) 25 See_Comment [Automated messa ge] The system which generated this result transmitted reference range: 22 - 26 mEq/L. The reference range was not used to interpret this result as normal/abnormal. BE (test code = 7807510266) -2.9 See_Comment [Automated messa ge] The system which generated this result transmitted reference range: -3.0 - 3.0 mEq/L. The reference range was not used to interpret this result as normal/abnormal. THB (test code = 0570330364) 8.4 g/dL 12.0-16.0 L %O2HB (test code = 8427860512) 98.2 % 94.0-99.0 %COHB ART (test code = 7903127400) 0.5 % 0.0-1.5 %METHB ART (test code = 9263456402) 0.3 % 0.4-1.5 L VOL%O2 ART (test code = 4232582004) 11.9 % 15.0-23.0 L NA (test code = 2783191645) 142 mmol/L 135-145 K+ (test code = 8056027394) 4.5 mmol/L 3.5-5.0 AC CA IONZ (test code = 6641601965) 5.10 mg/dL 4.50-5.30 GLUCOSE (test code = 2671301207) 94 mg/dL 70-110 LACTIC ACID (test code = 1009241110) 1.02 mmol/L 0.50-2.20 Lab Interpretation (test code = 63401-7) [facility] (NA, K, CL, CO2, GLUCOSE, BUN, CREATININE, CA)2023-04-12 18:51:57* Test Item Value Reference Range Interpretation Comme [facility] NA (test code = 9228352140) 144 mmol/L 135-145 K (test code = 4803887470) 4.8 mmol/L 3.5-5.0 CL (test code = 9460454469) 115 mmol/L 98-108 H CO2 TOTAL (test code = 8850398751) 26 mmol/L 23-31 AGAP (test code = 9287093305) 3 2-16 BUN (test code = 4582240522) 30 mg/dL 7-23 H GLUCOSE (test code = 3135801207) 92 mg/dL 70-110 CREATININE (test code = 8025606072) 1.11 mg/dL 0.50-1.04 H CALCIUM (test code = 7802350594) 8.4 mg/dL 8.6-10.6 L eGFR (test code = 06327-0) 61.1 mL/min/1.73m2 CKD-EPI eGFR (2020). Assuming creatinine has been stable day-to-day for at least three months, the eGFR indicates Category G2 (60 - 89 mL/min/1.73 m2) Lab Interpretation (test code = 38910-7) [facility]23-[facility]-12 17:39:26* Test Item Value Reference Range Interpretation Comme [facility] POCT GLU (test code = 7414177404) 94 mg/dL 70-110 Lab Interpretation (test cod e = 24289-6) Normal [facility] HospitalSputum Ndctqyh2034-63-20 16:49:19* Test Item Value Reference Range Interpretation Comme [facility] SPUTUM CULTURE (test code = 622-1) 1+ Respiratory guillermina: Commensal upper respiratory microorganisms only. Gram stain (test code = 664-3) No Epithelial cells CECIL (test code = CECIL) Bacterial pathogens associated with lower respiratory infections were not identified, which include Pseudomonas aeruginosa and Staphylococcus aureus (MRSA or MSSA). [facility] WITH [id number] 14:12:57* Test Item Value Reference Range Interpretation [...] g/dL 31.6-35.1 L RDW-SD (test code = 84425-8) 53.6 fL 39.0-49.9 H RDW-CV (test code = 788-0) 18.5 % 12.0-15.5 H PLT (test code = 777-3) 380 See_Comment H [Automated message] The system which generated this result transmitted reference range: 166 - 358 10*3/?L. The reference range was not used to interpret this result as normal/abnormal. MPV (test code = 36568-9) 9.9 fL 9.5-12.9 NRBC/100 WBC (test code = 1662954113) 0.6 See_Comment [Automated message] The system which generated this result transmitted reference range: 0.0 - 10.0 /100 WBCs. The reference range was not used to interpret this result as normal/abnormal. NRBC x10^3 (test code = 0143335245) 0.08 See_Comment [Automated message] The system which generated this result transmitted reference range: 10*3/?L. The reference range was not used to interpret this result as normal/abnormal. GRAN MAT (NEUT) % (test code = 770-8) 77.2 % IMM GRAN % (test code = 4546782457) 1.60 % LYMPH % (test code = 736-9) 11.1 % MONO % (test code = 5905-5) 10.0 % EOS % (test code = 713-8) 0.0 % BASO % (test code = 706-2) 0.1 % GRAN MAT x10^3(ANC) (test code = 6115314623) 11.23 10*3/uL 1.88-7.09 H IMM GRAN x10^3 (test code = 7432986491) 0.23 10*3/uL 0.00-0.06 H LYMPH x10^3 (test code = 731-0) 1.62 10*3/uL 1.32-3.29 MONO x10^3 (test code = 742-7) 1.45 10*3/uL 0.33-0.92 H EOS x10^3 (test code = 711-2) 0.03-0.39 L BASO x10^3 (test code = 704-7) 0.01-0.07 Lab Interpretation (test code = 62909-3) [facility] 13:53:56* Test Item Value Reference Range Interpretation Comme nts MAGNESIUM (test code = 7290963088) 2.4 mg/dL 1.7-2.4 Lab Interpretation (test cod e = 21427-9) [facility] (NA, K, CL, CO2, GLUCOSE, BUN, CREATININE, CA)2023-04-12 13:53:56* Test Item Value Reference Range Interpretation Comme nts NA (test code = 9010179954) 141 mmol/L 135-145 K (test code = 2853545139) 4.9 mmol/L 3.5-5.0 CL (test code = 3375293275) 112 mmol/L 98-108 H CO2 TOTAL (test code = 9939877391) 24 mmol/L 23-31 AGAP (test code = 1151007864) 5 2-16 BUN (test code = 9356505574) 28 mg/dL 7-23 H GLUCOSE (test code = 9267149031) 107 mg/dL 70-110 CREATININE (test code = 5035200357) 1.01 mg/dL 0.50-1.04 CALCIUM (test code = 8769445428) 8.4 mg/dL 8.6-10.6 L eGFR (test code = 55505-8) 68.4 mL/min/1.73m2 CKD-EPI eGFR (2020). Assuming creatinine has been stable day-to-day for at least three months, the eGFR indicates Category G2 (60 - 89 mL/min/1.73 m2) Lab Interpretation (test code = 69639-5) [facility]23-[facility]-12 13:35:00* Test Item Value Reference Range Interpretation Comme nts POCT GLU (test code = 2342350931) 115 mg/dL 70-110 H Lab Interpretation (test cod e = 89145-8) [facility]normal [facility] Packed RBC (in units), 1 Units 2023-04-12 13:28:16* Test Item Value Reference Range Interpretation Comme [facility] Cross Match Result (test code = 4409) Compatible ISBT Blood Type Code (test code = 119134) 6200 Unit Blood Type (test code = 4410) A Pos Unit Number (test code = 4411) [id number] Blood Expiration Date & Time (test code = 484527) [id number] Status Information (test code = 4412) Issued Product Identification (test code = 4413) Red Blood Cells Product Code (test code = 4414) [id number] Performed at [facility] Laboratory Services - [facility] Blood [address] [place] [address] 24885Vxlm Free: [phone] No. [id number] [facility] + Lactic Rdro8106-37-35 09:58:46* Test Item Value Reference Range Interpretation Comme nts PH (test code = 2) 7.27 7.35-7.45 L PCO2 (test code = 4579668812) 57 See_Comment H [Automated [place] ge] The system which generated this result transmitted reference range: 35 - 45 mmHg. The reference range was not used to interpret this result as normal/abnormal. PO2 (test code = 6489457976) 100 See_Comment [Automated messa ge] The system which generated this result transmitted reference range: 80 - 100 mmHg. The reference range was not used to interpret this result as normal/abnormal. HCO3 (test code = 1933014003) 26 See_Comment [Automated messa ge] The system which generated this result transmitted reference range: 22 - 26 mEq/L. The reference range was not used to interpret this result as normal/abnormal. BE (test code = 1867806332) -2.3 See_Comment [Automated messa ge] The system which generated this result transmitted reference range: -3.0 - 3.0 mEq/L. The reference range was not used to interpret this result as normal/abnormal. THB (test code = 9779429049) 13.9 g/dL 12.0-16.0 %O2HB (test code = 6701721871) 96.5 % 94.0-99.0 %COHB ART (test code = 1230619345) 0.9 % 0.0-1.5 %METHB ART (test code = 1189690933) 0.0 % 0.4-1.5 L VOL%O2 ART (test code = 9802544615) 19.0 % 15.0-23.0 NA (test code = 7037934763) 142 mmol/L 135-145 K+ (test code = 8222452233) 4.9 mmol/L 3.5-5.0 AC CA IONZ (test code = 9966891468) 5.10 mg/dL 4.50-5.30 GLUCOSE (test code = 3759177920) 102 mg/dL 70-110 LACTIC ACID (test code = 7184457514) 1.54 mmol/L 0.50-2.20 Lab Interpretation (test code = 91001-6) [facility]23-[facility]-12 09:42:48* Test Item Value Reference Range Interpretation Comme nts POCT GLU (test code = 1327284429) 127 mg/dL 70-110 H Lab Interpretation (test cod e = 99970-3) [facility]normal [facility]2023-[facility] 07:01:35* Test Item Value Reference Range Interpretation Comme nts PHOSPHORUS (test code = 3067954103) 3.5 mg/dL 2.5-5.0 Lab Interpretation (test cod e = 11621-4) Normal [facility] METABOLIC PANEL (NA, K, CL, CO2, GLUCOSE, BUN, CREATININE, CA)2023-04-12 07:01:34* Test Item Value Reference Range Interpretation Comme nts NA (test code = 6448789661) 139 mmol/L 135-145 K (test code = 7984155384) 5.0 mmol/L 3.5-5.0 CL (test code = 3841647698) 112 mmol/L 98-108 H CO2 TOTAL (test code = 5823894388) 25 mmol/L 23-31 AGAP (test code = 9193255683) 2 2-16 BUN (test code = 7635734904) 24 mg/dL 7-23 H GLUCOSE (test code = 5004444701) 128 mg/dL 70-110 H CREATININE (test code = 2557074757) 0.99 mg/dL 0.50-1.04 CALCIUM (test code = 4802044495) 8.3 mg/dL 8.6-10.6 L eGFR (test code = 01824-2) 70.0 mL/min/1.73m2 CKD-EPI eGFR (2020). Assuming creatinine has been stable day-to-day for at least three months, the eGFR indicates Category G2 (60 - 89 mL/min/1.73 m2) Lab Interpretation (test code = 72351-4) [facility]23[facility] 07:01:34* Test Item Value Reference Range Interpretation Comme nts MAGNESIUM (test code = 8290128239) 2.4 mg/dL 1.7-2.4 Lab Interpretation (test cod e = 39278-8) Normal [facility] GLUCOSE (AUTOMATED)2023-04-12 06:23:35* Test Item Value Reference Range Interpretation Comme nts POCT GLU (test code = 7137227387) 150 mg/dL 70-110 H Lab Interpretation (test cod e = 36237-9) Abnormal [facility] GLUCOSE (AUTOMATED)2023-04-12 02:29:43* Test Item Value Reference Range Interpretation Comme nts POCT GLU (test code = 4996145603) 133 mg/dL 70-110 H Lab Interpretation (test cod e = 27269-0) [facility] + Lactic Bbzo7614-97-91 01:39:21* Test Item Value Reference Range Interpretation Comme nts PH (test code = 2) 7.27 7.35-7.45 L PCO2 (test code = 8388918786) 49 See_Comment H [Automated messa ge] The system which generated this result transmitted reference range: 35 - 45 mmHg. The reference range was not used to interpret this result as normal/abnormal. PO2 (test code = 5041877874) 87 See_Comment [Automated messa ge] The system which generated this result transmitted reference range: 80 - 100 mmHg. The reference range was not used to interpret this result as normal/abnormal. HCO3 (test code = 2984425261) 22 See_Comment [Automated messa ge] The system which generated this result transmitted reference range: 22 - 26 mEq/L. The reference range was not used to interpret this result as normal/abnormal. BE (test code = 8786406159) -4.6 See_Comment L [Automated messa ge] The system which generated this result transmitted reference range: -3.0 - 3.0 mEq/L. The reference range was not used to interpret this result as normal/abnormal. THB (test code = 5607663149) 8.8 g/dL 12.0-16.0 L %O2HB (test code = 3429305133) 95.1 % 94.0-99.0 %COHB ART (test code = 2492196227) 0.3 % 0.0-1.5 %METHB ART (test code = 3875599102) 0.1 % 0.4-1.5 L VOL%O2 ART (test code = 1134293500) 11.9 % 15.0-23.0 L NA (test code = 7362233095) 139 mmol/L 135-145 K+ (test code = 6847827349) 4.8 mmol/L 3.5-5.0 AC CA IONZ (test code = 1221769990) 4.80 mg/dL 4.50-5.30 GLUCOSE (test code = 8200209793) 113 mg/dL 70-110 H LACTIC ACID (test code = 5177761876) 0.98 mmol/L 0.50-2.20 Lab Interpretation (test code = 90265-3) [facility]normal [facility] Hospital[facility] TZTQN6501-62-32 01:25:33* Test Item Value Reference Range Interpretation Comme nts IRON (test code = 4559676482) 18 ug/dL 50-160 L TIBC (test code = 7756122801) 412 ug/dL 250-410 H % FE SAT (test code = 4394589697) 4 % 20-50 L Lab Interpretation (test cod e = 08708-7) Abnormal [facility] METABOLIC PANEL (NA, K, CL, CO2, GLUCOSE, BUN, CREATININE, CA)2023-04-12 01:15:56* Test Item Value Reference Range Interpretation Comme nts NA (test code = 5242309032) 141 mmol/L 135-145 K (test code = 7421566785) 5.2 mmol/L 3.5-5.0 H CL (test code = 3802247296) 112 mmol/L 98-108 H CO2 TOTAL (test code = 0768758590) 24 mmol/L 23-31 AGAP (test code = 9628192532) 5 2-16 BUN (test code = 4909524090) 20 mg/dL 7-23 GLUCOSE (test code = 7274313474) 121 mg/dL 70-110 H CREATININE (test code = 8669302142) 1.03 mg/dL 0.50-1.04 CALCIUM (test code = 4549420661) 8.5 mg/dL 8.6-10.6 L eGFR (test code = 74161-6) 66.8 mL/min/1.73m2 CKD-EPI eGFR (2020). Assuming creatinine has been stable day-to-day for at least three months, the eGFR indicates Category G2 (60 - 89 mL/min/1.73 m2) Lab Interpretation (test code = 33345-8) [facility]2023[facility] 01:15:56* Test Item Value Reference Range Interpretation Comme nts PHOSPHORUS (test code = 2913469509) 3.4 mg/dL 2.5-5.0 Lab Interpretation (test cod e = 34111-7) [facility]23[facility]28 01:15:56* Test Item Value Reference Range Interpretation Comme nts MAGNESIUM (test code = 0281138840) 2.4 mg/dL 1.7-2.4 Lab Interpretation (test cod e = 14341-7) Normal [facility] GLUCOSE (AUTOMATED)2023-04-11 23:56:40* Test Item Value Reference Range Interpretation Comme nts POCT GLU (test code = 0817977342) 166 mg/dL 70-110 H Lab Interpretation (test cod e = 07913-1) Abnormal [facility] GLUCOSE (AUTOMATED)2023-04-11 23:00:43* Test Item Value Reference Range Interpretation Comme [facility] POCT GLU (test code = 1169416502) 113 mg/dL 70-110 H Lab Interpretation (test cod e = 84908-9) [facility] (NA, K, CL, CO2, GLUCOSE, BUN, CREATININE, CA)2023-04-11 22:12:54* Test Item Value Reference Range Interpretation Comme nts NA (test code = 9276234451) 140 mmol/L 135-145 K (test code = 6679572867) 5.6 mmol/L 3.5-5.0 H CL (test code = 3149750614) 114 mmol/L 98-108 H CO2 TOTAL (test code = 6189189146) 26 mmol/L 23-31 AGAP (test code = 7340121156) 2-16 L BUN (test code = 4522378946) 20 mg/dL 7-23 GLUCOSE (test code = 2707465015) 96 mg/dL 70-110 CREATININE (test code = 2216975373) 1.01 mg/dL 0.50-1.04 CALCIUM (test code = 8670367546) 8.0 mg/dL 8.6-10.6 L eGFR (test code = 79435-3) 68.4 mL/min/1.73m2 CKD-EPI eGFR (2020). Assuming creatinine has been stable day-to-day for at least three months, the eGFR indicates Category G2 (60 - 89 mL/min/1.73 m2) Lab Interpretation (test code = 99337-0) [facility] 22:07:48* Test Item Value Reference Range Interpretation Comme nts PHOSPHORUS (test code = 0338230280) 4.0 mg/dL 2.5-5.0 Lab Interpretation (test cod e = 48698-4) [facility]23[facility] 22:07:48* Test Item Value Reference Range Interpretation Comme nts MAGNESIUM (test code = 4993258404) 2.6 mg/dL 1.7-2.4 H Lab Interpretation (test cod e = 30032-9) [facility] + Lactic Jygs6046-23-91 21:23:42* Test Item Value Reference Range Interpretation Comme nts PH (test code = 2) 7.18 7.35-7.45 LL PCO2 (test code = 9818188208) 64 See_Comment H [Automated messa ge] The system which generated this result transmitted reference range: 35 - 45 mmHg. The reference range was not used to interpret this result as normal/abnormal. PO2 (test code = 8358707749) 112 See_Comment H [Automated messa ge] The system which generated this result transmitted reference range: 80 - 100 mmHg. The reference range was not used to interpret this result as normal/abnormal. HCO3 (test code = 7182123285) 23 See_Comment [Automated messa ge] The system which generated this result transmitted reference range: 22 - 26 mEq/L. The reference range was not used to interpret this result as normal/abnormal. BE (test code = 1921916937) -5.0 See_Comment L [Automated messa ge] The system which generated this result transmitted reference range: -3.0 - 3.0 mEq/L. The reference range was not used to interpret this result as normal/abnormal. THB (test code = 4756188081) 8.1 g/dL 12.0-16.0 LL %O2HB (test code = 9643735529) 97.2 % 94.0-99.0 %COHB ART (test code = 4384413938) 0.3 % 0.0-1.5 %METHB ART (test code = 8439599680) 0.1 % 0.4-1.5 L VOL%O2 ART (test code = 0070139083) 11.3 % 15.0-23.0 L NA (test code = 7664772481) 139 mmol/L 135-145 K+ (test code = 5247509571) 5.5 mmol/L 3.5-5.0 H AC CA IONZ (test code = 8115918660) 4.90 mg/dL 4.50-5.30 GLUCOSE (test code = 5701315704) 88 mg/dL 70-110 LACTIC ACID (test code = 5132684613) 0.72 mmol/L 0.50-2.20 Lab Interpretation (test code = 93018-0) [facility] (NA, K, CL, CO2, GLUCOSE, BUN, CREATININE, CA)2023-04-11 18:11:15* Test Item Value Reference Range Interpretation Comme nts NA (test code = 6350707577) 140 mmol/L 135-145 K (test code = 1914619245) 4.9 mmol/L 3.5-5.0 CL (test code = 3217842947) 115 mmol/L 98-108 H CO2 TOTAL (test code = 0133291506) 23 mmol/L 23-31 AGAP (test code = 2740548702) 2 2-16 BUN (test code = 9553926501) 20 mg/dL 7-23 GLUCOSE (test code = 1460203803) 108 mg/dL 70-110 CREATININE (test code = 0763954494) 0.96 mg/dL 0.50-1.04 CALCIUM (test code = 9834600426) 8.0 mg/dL 8.6-10.6 L eGFR (test code = 95096-2) 72.7 mL/min/1.73m2 CKD-EPI eGFR (2020). Assuming creatinine has been stable day-to-day for at least three months, the eGFR indicates Category G2 (60 - 89 mL/min/1.73 m2) Lab Interpretation (test code = 18946-5) [facility] 18:11:15* Test Item Value Reference Range Interpretation Comme nts PHOSPHORUS (test code = 0558587520) 3.6 mg/dL 2.5-5.0 Lab Interpretation (test cod e = 19577-0) [facility] 18:11:15* Test Item Value Reference Range Interpretation Comme nts MAGNESIUM (test code = 6051263956) 2.7 mg/dL 1.7-2.4 H Lab Interpretation (test cod e = 68439-5) [facility]normal [facility] + Lactic [id number] 18:10:54* Test Item Value Reference Range Interpretation Comme nts PH (test code = 2) 7.18 7.35-7.45 LL PCO2 (test code = 7706314414) 62 See_Comment H [Automated messa ge] The system which generated this result transmitted reference range: 35 - 45 mmHg. The reference range was not used to interpret this result as normal/abnormal. PO2 (test code = 7957567132) 106 See_Comment H [Automated messa ge] The system which generated this result transmitted reference range: 80 - 100 mmHg. The reference range was not used to interpret this result as normal/abnormal. HCO3 (test code = 8407658622) 23 See_Comment [Automated messa ge] The system which generated this result transmitted reference range: 22 - 26 mEq/L. The reference range was not used to interpret this result as normal/abnormal. BE (test code = 5644415956) -5.8 See_Comment L [Automated messa ge] The system which generated this result transmitted reference range: -3.0 - 3.0 mEq/L. The reference range was not used to interpret this result as normal/abnormal. THB (test code = 6563198232) 8.1 g/dL 12.0-16.0 LL %O2HB (test code = 0002037047) 96.5 % 94.0-99.0 %COHB ART (test code = 0635853643) 0.4 % 0.0-1.5 %METHB ART (test code = 7592727613) 0.1 % 0.4-1.5 L VOL%O2 ART (test code = 0721707804) 11.2 % 15.0-23.0 L NA (test code = 5373150730) 139 mmol/L 135-145 K+ (test code = 9174587973) 4.7 mmol/L 3.5-5.0 AC CA IONZ (test code = 7812768893) 4.90 mg/dL 4.50-5.30 GLUCOSE (test code = 2220910590) 100 mg/dL 70-110 LACTIC ACID (test code = 0154261968) 1.00 mmol/L 0.50-2.20 Lab Interpretation (test code = 93750-6) [facility] (NA, K, CL, CO2, GLUCOSE, BUN, CREATININE, CA)2023-04-11 14:52:22* Test Item Value Reference Range Interpretation Comme nts NA (test code = 5326430781) 140 mmol/L 135-145 K (test code = 3970921790) 4.7 mmol/L 3.5-5.0 CL (test code = 0657907523) 113 mmol/L 98-108 H CO2 TOTAL (test code = 4463666379) 21 mmol/L 23-31 L AGAP (test code = 9145070878) 6 2-16 BUN (test code = 1392248838) 18 mg/dL 7-23 GLUCOSE (test code = 6621676631) 135 mg/dL 70-110 H CREATININE (test code = 4021479952) 1.02 mg/dL 0.50-1.04 CALCIUM (test code = 5275632629) 7.8 mg/dL 8.6-10.6 L eGFR (test code = 46842-9) 67.6 mL/min/1.73m2 CKD-EPI eGFR (2020). Assuming creatinine has been stable day-to-day for at least three months, the eGFR indicates Category G2 (60 - 89 mL/min/1.73 m2) Lab Interpretation (test code = 44270-6) [facility] 14:52:22* Test Item Value Reference Range Interpretation Comme nts PHOSPHORUS (test code = 8207259406) 3.2 mg/dL 2.5-5.0 Lab Interpretation (test cod e = 75954-1) [facility] 14:52:22* Test Item Value Reference Range Interpretation Comme nts MAGNESIUM (test code = 3292014553) 2.7 mg/dL 1.7-2.4 H Lab Interpretation (test cod e = 93314-1) [facility] + Lactic Awee1819-82-97 14:49:51* Test Item Value Reference Range Interpretation Comme nts PH (test code = 2) 7.29 7.35-7.45 L PCO2 (test code = 9006681909) 47 See_Comment H [Automated messa ge] The system which generated this result transmitted reference range: 35 - 45 mmHg. The reference range was not used to interpret this result as normal/abnormal. PO2 (test code = [id number]) 111 See_Comment H [Automated messa ge] The system which generated this result transmitted reference range: 80 - 100 mmHg. The reference range was not used to interpret this result as normal/abnormal. HCO3 (test code = [id number]) 22 See_Comment [Automated messa ge] The system which generated this result transmitted reference range: 22 - 26 mEq/L. The reference range was not used to interpret this result as normal/abnormal. BE (test code = [id number]) -4.4 See_Comment L [Automated messa ge] The system which generated this result transmitted reference range: -3.0 - 3.0 mEq/L. The reference range was not used to interpret this result as normal/abnormal. THB (test code = [id number]) 7.8 g/dL 12.0-16.0 LL %O2HB (test code = 6836979286) 97.4 % 94.0-99.0 %COHB ART (test code = 9386519317) 0.7 % 0.0-1.5 %METHB ART (test code = 6080351624) 0.0 % 0.4-1.5 L VOL%O2 ART (test code = 4271413006) 10.9 % 15.0-23.0 L NA (test code = 2639457029) 139 mmol/L 135-145 K+ (test code = 8477062822) 4.6 mmol/L 3.5-5.0 AC CA IONZ (test code = 7558931310) 4.70 mg/dL 4.50-5.30 GLUCOSE (test code = 9512205489) 131 mg/dL 70-110 H LACTIC ACID (test code = 5738138447) 1.95 mmol/L 0.50-2.20 Lab Interpretation (test code = 90360-0) [facility] [id number] 11:03:58* Test Item Value Reference Range Interpretation Comme nts PH (test code = 2) 7.19 7.35-7.45 LL PCO2 (test code = 8645191078) 55 See_Comment H [Automated messa ge] The system which generated this result transmitted reference range: 35 - 45 mmHg. The reference range was not used to interpret this result as normal/abnormal. PO2 (test code = 7795995502) 122 See_Comment H [Automated messa ge] The system which generated this result transmitted reference range: 80 - 100 mmHg. The reference range was not used to interpret this result as normal/abnormal. HCO3 (test code = 7008377067) 20 See_Comment L [Automated messa ge] The system which generated this result transmitted reference range: 22 - 26 mEq/L. The reference range was not used to interpret this result as normal/abnormal. BE (test code = 8545035349) -7.6 See_Comment L [Automated messa ge] The system which generated this result transmitted reference range: -3.0 - 3.0 mEq/L. The reference range was not used to interpret this result as normal/abnormal. THB (test code = 8018686969) 8.2 g/dL 12.0-16.0 LL %O2HB (test code = 5050702717) 97.8 % 94.0-99.0 %COHB ART (test code = 4318328717) 0.2 % 0.0-1.5 %METHB ART (test code = 3065977552) 0.3 % 0.4-1.5 L VOL%O2 ART (test code = 8351208843) 11.5 % 15.0-23.0 L NA (test code = 6975337334) 138 mmol/L 135-145 K+ (test code = 2804234186) 4.9 mmol/L 3.5-5.0 AC CA IONZ (test code = 2196271204) 4.60 mg/dL 4.50-5.30 GLUCOSE (test code = 0276440755) 141 mg/dL 70-110 H LACTIC ACID (test code = 2393444317) 2.62 mmol/L 0.50-2.20 H Lab Interpretation (test code = 07741-9) [facility] Lactic [id number] 11:03:48* Test Item Value Reference Range Interpretation Comme nts PH (test code = 2) 7.22 7.35-7.45 L PCO2 (test code = 1155185803) 45 See_Comment [Automated messa ge] The system which generated this result transmitted reference range: 35 - 45 mmHg. The reference range was not used to interpret this result as normal/abnormal. PO2 (test code = 8853661033) 147 See_Comment H [Automated messa ge] The system which generated this result transmitted reference range: 80 - 100 mmHg. The reference range was not used to interpret this result as normal/abnormal. HCO3 (test code = 5392718419) 18 See_Comment L [Automated messa ge] The system which generated this result transmitted reference range: 22 - 26 mEq/L. The reference range was not used to interpret this result as normal/abnormal. BE (test code = 8813355923) -9.0 See_Comment L [Automated messa ge] The system which generated this result transmitted reference range: -3.0 - 3.0 mEq/L. The reference range was not used to interpret this result as normal/abnormal. THB (test code = 6356715217) 8.0 g/dL 12.0-16.0 LL %O2HB (test code = 1585905446) 98.4 % 94.0-99.0 %COHB ART (test code = 1299480523) 0.1 % 0.0-1.5 %METHB ART (test code = 2115729043) 0.3 % 0.4-1.5 L VOL%O2 ART (test code = 9938319070) 11.4 % 15.0-23.0 L NA (test code = 5014880905) 138 mmol/L 135-145 K+ (test code = 6188918408) 4.7 mmol/L 3.5-5.0 AC CA IONZ (test code = 4788614595) 4.60 mg/dL 4.50-5.30 GLUCOSE (test code = 7943948355) 165 mg/dL 70-110 H LACTIC ACID (test code = 1998077766) 2.94 mmol/L 0.50-2.20 H Lab Interpretation (test code = 51315-5) Abnormal [facility] GLUCOSE (AUTOMATED)2023-04-11 09:38:33* Test Item Value Reference Range Interpretation Comme nts POCT GLU (test code = 8359805068) 201 mg/dL 70-110 H Lab Interpretation (test cod e = 73780-0) Abnormal [facility] GLUCOSE (AUTOMATED)2023-04-11 09:38:33* Test Item Value Reference Range Interpretation Comme nts POCT GLU (test code = 1556550912) 198 mg/dL 70-110 H Lab Interpretation (test cod e = 61856-4) [facility] + Lactic [id number] 06:34:26* Test Item Value Reference Range Interpretation Comme nts PH (test code = 2) 7.21 7.35-7.45 L PCO2 (test code = 0822253144) 51 See_Comment H [Automated messa ge] The system which generated this result transmitted reference range: 35 - 45 mmHg. The reference range was not used to interpret this result as normal/abnormal. PO2 (test code = 8026583009) 152 See_Comment H [Automated messa ge] The system which generated this result transmitted reference range: 80 - 100 mmHg. The reference range was not used to interpret this result as normal/abnormal. HCO3 (test code = 7682958871) 20 See_Comment L [Automated messa ge] The system which generated this result transmitted reference range: 22 - 26 mEq/L. The reference range was not used to interpret this result as normal/abnormal. BE (test code = 0346504876) -7.5 See_Comment L [Automated messa ge] The system which generated this result transmitted reference range: -3.0 - 3.0 mEq/L. The reference range was not used to interpret this result as normal/abnormal. THB (test code = 5583444029) 7.9 g/dL 12.0-16.0 LL %O2HB (test code = 9939723127) 98.1 % 94.0-99.0 %COHB ART (test code = 9622835117) 0.4 % 0.0-1.5 %METHB ART (test code = 6535625970) 0.3 % 0.4-1.5 L VOL%O2 ART (test code = 4421612793) 11.2 % 15.0-23.0 L NA (test code = 2968507791) 138 mmol/L 135-145 K+ (test code = 2952497766) 4.8 mmol/L 3.5-5.0 AC CA IONZ (test code = 9246351839) 4.60 mg/dL 4.50-5.30 GLUCOSE (test code = 0527352678) 156 mg/dL 70-110 H LACTIC ACID (test code = 2995008637) 3.36 mmol/L 0.50-2.20 H Lab Interpretation (test code = 89620-0) [facility] 05:14:38* Test Item Value Reference Range Interpretation Comme [facility] POCT GLU (test code = 3296778672) 133 mg/dL 70-110 H Lab Interpretation (test cod e = 97909-0) [facility] + Lactic [id number] 05:06:51* Test Item Value Reference Range Interpretation Comme [facility] PH (test code = 2) 7.18 7.35-7.45 LL PCO2 (test code = 5075398749) 55 See_Comment H [Automated messa ge] The system which generated this result transmitted reference range: 35 - 45 mmHg. The reference range was not used to interpret this result as normal/abnormal. PO2 (test code = 5904592457) 120 See_Comment H [Automated messa ge] The system which generated this result transmitted reference range: 80 - 100 mmHg. The reference range was not used to interpret this result as normal/abnormal. HCO3 (test code = 1151128265) 20 See_Comment L [Automated messa ge] The system which generated this result transmitted reference range: 22 - 26 mEq/L. The reference range was not used to interpret this result as normal/abnormal. BE (test code = 1275893690) -8.0 See_Comment L [Automated messa ge] The system which generated this result transmitted reference range: -3.0 - 3.0 mEq/L. The reference range was not used to interpret this result as normal/abnormal. THB (test code = 0840229936) 8.3 g/dL 12.0-16.0 LL %O2HB (test code = 1603528500) 97.5 % 94.0-99.0 %COHB ART (test code = 6697342401) 0.2 % 0.0-1.5 %METHB ART (test code = 0908243348) 0.3 % 0.4-1.5 L VOL%O2 ART (test code = 2959964663) 11.6 % 15.0-23.0 L NA (test code = 0438274478) 138 mmol/L 135-145 K+ (test code = 1591279910) 4.8 mmol/L 3.5-5.0 AC CA IONZ (test code = 1329638772) 4.70 mg/dL 4.50-5.30 GLUCOSE (test code = 5357076814) 145 mg/dL 70-110 H LACTIC ACID (test code = 2919333333) 2.73 mmol/L 0.50-2.20 H Lab Interpretation (test code = 99536-9) Abnormal [facility] METABOLIC PANEL (NA, K, CL, CO2, GLUCOSE, BUN, CREATININE, CA)2023-04-11 03:17:26* Test Item Value Reference Range Interpretation Comme nts NA (test code = 9078969213) 141 mmol/L 135-145 K (test code = 1533441895) 4.9 mmol/L 3.5-5.0 CL (test code = 9296509331) 111 mmol/L 98-108 H CO2 TOTAL (test code = 1921278744) 20 mmol/L 23-31 L AGAP (test code = 9498719946) 10 2-16 BUN (test code = 9720568410) 18 mg/dL 7-23 GLUCOSE (test code = 8982856965) 137 mg/dL 70-110 H CREATININE (test code = 6304546521) 1.29 mg/dL 0.50-1.04 H CALCIUM (test code = 1059396156) 7.7 mg/dL 8.6-10.6 L eGFR (test code = 61358-0) 51.0 mL/min/1.73m2 CKD-EPI eGFR (2020). Assuming creatinine has been stable day-to-day for at least three months, the eGFR indicates Category G3a (45 - 59 mL/min/1.73 m2) Lab Interpretation (test code = 46103-0) [facility] + Lactic Culc7972-45-12 03:01:58* Test Item Value Reference Range Interpretation Comme nts PH (test code = 2) 7.12 7.35-7.45 LL PCO2 (test code = 2936802261) 70 See_Comment H [Automated messa ge] The system which generated this result transmitted reference range: 35 - 45 mmHg. The reference range was not used to interpret this result as normal/abnormal. PO2 (test code = 5578355451) 96 See_Comment [Automated messa ge] The system which generated this result transmitted reference range: 80 - 100 mmHg. The reference range was not used to interpret this result as normal/abnormal. HCO3 (test code = 2670424300) 22 See_Comment [Automated messa ge] The system which generated this result transmitted reference range: 22 - 26 mEq/L. The reference range was not used to interpret this result as normal/abnormal. BE (test code = 5238595856) -7.5 See_Comment L [Automated messa ge] The system which generated this result transmitted reference range: -3.0 - 3.0 mEq/L. The reference range was not used to interpret this result as normal/abnormal. THB (test code = 9792877781) 8.7 g/dL 12.0-16.0 L %O2HB (test code = 5792312053) 95.0 % 94.0-99.0 %COHB ART (test code = 4763718970) 0.2 % 0.0-1.5 %METHB ART (test code = 4465757242) 0.2 % 0.4-1.5 L VOL%O2 ART (test code = 0306550473) 11.8 % 15.0-23.0 L NA (test code = 8106431760) 140 mmol/L 135-145 K+ (test code = 2232228548) 4.9 mmol/L 3.5-5.0 AC CA IONZ (test code = 7219439148) 4.60 mg/dL 4.50-5.30 GLUCOSE (test code = 7006609368) 137 mg/dL 70-110 H LACTIC ACID (test code = 9885822800) 1.92 mmol/L 0.50-2.20 Lab Interpretation (test code = 77115-0) [facility] 02:29:37* Test Item Value Reference Range Interpretation Comme [facility] POCT GLU (test code = 8018250165) 153 mg/dL 70-110 H Lab Interpretation (test cod e = 62618-8) [facility] + Lactic [id number] 01:55:07* Test Item Value Reference Range Interpretation Comme [facility] PH (test code = 2) 7.23 7.35-7.45 L PCO2 (test code = 1155140845) 48 See_Comment H [Automated messa ge] The system which generated this result transmitted reference range: 35 - 45 mmHg. The reference range was not used to interpret this result as normal/abnormal. PO2 (test code = 7336000999) 171 See_Comment H [Automated messa ge] The system which generated this result transmitted reference range: 80 - 100 mmHg. The reference range was not used to interpret this result as normal/abnormal. HCO3 (test code = 2953109982) 19 See_Comment L [Automated messa ge] The system which generated this result transmitted reference range: 22 - 26 mEq/L. The reference range was not used to interpret this result as normal/abnormal. BE (test code = 0352820773) -7.7 See_Comment L [Automated messa ge] The system which generated this result transmitted reference range: -3.0 - 3.0 mEq/L. The reference range was not used to interpret this result as normal/abnormal. THB (test code = 3736221858) 8.3 g/dL 12.0-16.0 LL %O2HB (test code = 7773146764) 99.0 % 94.0-99.0 %COHB ART (test code = 0105395354) 0.2 % 0.0-1.5 %METHB ART (test code = 0825684293) 0.2 % 0.4-1.5 L VOL%O2 ART (test code = 3242427921) 12.0 % 15.0-23.0 L NA (test code = 8250387449) 139 mmol/L 135-145 K+ (test code = 4367583199) 4.8 mmol/L 3.5-5.0 AC CA IONZ (test code = 7366207301) 4.60 mg/dL 4.50-5.30 GLUCOSE (test code = 1613023491) 133 mg/dL 70-110 H LACTIC ACID (test code = 3830543879) 2.69 mmol/L 0.50-2.20 H Lab Interpretation (test code = 70532-2) Abnormal [facility] METABOLIC PANEL (NA, K, CL, CO2, GLUCOSE, BUN, CREATININE, CA)2023-04-11 00:07:30* Test Item Value Reference Range Interpretation Comme nts NA (test code = 0401525864) 138 mmol/L 135-145 K (test code = 8109727889) 4.8 mmol/L 3.5-5.0 CL (test code = 4233825422) 111 mmol/L 98-108 H CO2 TOTAL (test code = 3884416696) 20 mmol/L 23-31 L AGAP (test code = 6531446868) 7 2-16 BUN (test code = 3256493646) 17 mg/dL 7-23 GLUCOSE (test code = 4878626618) 149 mg/dL 70-110 H CREATININE (test code = 2515106265) 1.40 mg/dL 0.50-1.04 H CALCIUM (test code = 8256468140) 7.8 mg/dL 8.6-10.6 L eGFR (test code = 19623-7) 46.2 mL/min/1.73m2 CKD-EPI eGFR (2020). Assuming creatinine has been stable day-to-day for at least three months, the eGFR indicates Category G3a (45 - 59 mL/min/1.73 m2) Lab Interpretation (test code = 27880-8) [facility] + Lactic Evbc8109-54-26 22:38:22* Test Item Value Reference Range Interpretation Comme nts PH (test code = 2) 7.21 7.35-7.45 L PCO2 (test code = 4037989801) 51 See_Comment H [Automated messa ge] The system which generated this result transmitted reference range: 35 - 45 mmHg. The reference range was not used to interpret this result as normal/abnormal. PO2 (test code = 5574613470) 153 See_Comment H [Automated messa ge] The system which generated this result transmitted reference range: 80 - 100 mmHg. The reference range was not used to interpret this result as normal/abnormal. HCO3 (test code = 9748055039) 20 See_Comment L [Automated messa ge] The system which generated this result transmitted reference range: 22 - 26 mEq/L. The reference range was not used to interpret this result as normal/abnormal. BE (test code = 7758609561) -7.7 See_Comment L [Automated messa ge] The system which generated this result transmitted reference range: -3.0 - 3.0 mEq/L. The reference range was not used to interpret this result as normal/abnormal. THB (test code = 5602849035) 8.4 g/dL 12.0-16.0 L %O2HB (test code = 9038676161) 98.7 % 94.0-99.0 %COHB ART (test code = 3526423153) 0.3 % 0.0-1.5 %METHB ART (test code = 6102804703) 0.0 % 0.4-1.5 L VOL%O2 ART (test code = 3894807679) 12.0 % 15.0-23.0 L NA (test code = 5244157357) 139 mmol/L 135-145 K+ (test code = 3404257002) 4.8 mmol/L 3.5-5.0 AC CA IONZ (test code = 3989952717) 4.50 mg/dL 4.50-5.30 GLUCOSE (test code = 1055246977) 142 mg/dL 70-110 H LACTIC ACID (test code = 6707607329) 2.60 mmol/L 0.50-2.20 H Lab Interpretation (test code = 75709-0) [facility]23-[facility]10 21:42:03* Test Item Value Reference Range Interpretation Comme nts POCT GLU (test code = 1439931524) 150 mg/dL 70-110 H Lab Interpretation (test cod e = 75108-5) Abnormal [facility] METABOLIC PANEL (NA, K, CL, CO2, GLUCOSE, BUN, CREATININE, CA)2023-04-10 20:58:37* Test Item Value Reference Range Interpretation Comme nts NA (test code = 1422012630) 138 mmol/L 135-145 K (test code = 7245799005) 5.6 mmol/L 3.5-5.0 H CL (test code = 4795497863) 111 mmol/L 98-108 H CO2 TOTAL (test code = 5447519284) 22 mmol/L 23-31 L AGAP (test code = 0196111839) 5 2-16 BUN (test code = 3037843974) 15 mg/dL 7-23 GLUCOSE (test code = 1384873544) 118 mg/dL 70-110 H CREATININE (test code = 0519053073) 1.33 mg/dL 0.50-1.04 H CALCIUM (test code = 3389684846) 7.8 mg/dL 8.6-10.6 L eGFR (test code = 40381-1) 49.1 mL/min/1.73m2 CKD-EPI eGFR (2020). Assuming creatinine has been stable day-to-day for at least three months, the eGFR indicates Category G3a (45 - 59 mL/min/1.73 m2) Lab Interpretation (test code = 57951-0) [facility] + Lactic [id number] 20:27:42* Test Item Value Reference Range Interpretation Comme nts PH (test code = 2) 7.20 7.35-7.45 L PCO2 (test code = 0189784457) 58 See_Comment H [Automated messa ge] The system which generated this result transmitted reference range: 35 - 45 mmHg. The reference range was not used to interpret this result as normal/abnormal. PO2 (test code = 1147727433) 161 See_Comment H [Automated messa ge] The system which generated this result transmitted reference range: 80 - 100 mmHg. The reference range was not used to interpret this result as normal/abnormal. HCO3 (test code = 0530225205) 22 See_Comment [Automated messa ge] The system which generated this result transmitted reference range: 22 - 26 mEq/L. The reference range was not used to interpret this result as normal/abnormal. BE (test code = 8717583340) -6.0 See_Comment L [Automated messa ge] The system which generated this result transmitted reference range: -3.0 - 3.0 mEq/L. The reference range was not used to interpret this result as normal/abnormal. THB (test code = 9844861060) 8.2 g/dL 12.0-16.0 LL %O2HB (test code = 4085703889) 98.5 % 94.0-99.0 %COHB ART (test code = 7981740626) 0.4 % 0.0-1.5 %METHB ART (test code = 6757557681) 0.2 % 0.4-1.5 L VOL%O2 ART (test code = 6475792392) 11.7 % 15.0-23.0 L NA (test code = 0872172389) 138 mmol/L 135-145 K+ (test code = 5357108637) 5.4 mmol/L 3.5-5.0 H AC CA IONZ (test code = 7913002290) 4.60 mg/dL 4.50-5.30 GLUCOSE (test code = 5963389382) 111 mg/dL 70-110 H LACTIC ACID (test code = 7254521034) 1.31 mmol/L 0.50-2.20 Lab Interpretation (test code = 45555-9) [facility] 15:00:49* Test Item Value Reference Range Interpretation Comme [facility] POCT GLU (test code = 4545875361) 156 mg/dL 70-110 H Lab Interpretation (test cod e = 42921-5) [facility]NA+K+GLU+CA2+2023-04-10 14:40:42* Test Item Value Reference Range Interpretation Comme [facility] PH (test code = 2) 7.28 7.35-7.45 L PCO2 (test code = 8555552067) 45 See_Comment [Automated messa ge] The system which generated this result transmitted reference range: 35 - 45 mmHg. The reference range was not used to interpret this result as normal/abnormal. PO2 (test code = 8388367773) 89 See_Comment [Automated messa ge] The system which generated this result transmitted reference range: 80 - 100 mmHg. The reference range was not used to interpret this result as normal/abnormal. HCO3 (test code = 6698749608) 21 See_Comment L [Automated messa ge] The system which generated this result transmitted reference range: 22 - 26 mEq/L. The reference range was not used to interpret this result as normal/abnormal. BE (test code = 1681984050) -5.7 See_Comment L [Automated messa ge] The system which generated this result transmitted reference range: -3.0 - 3.0 mEq/L. The reference range was not used to interpret this result as normal/abnormal. THB (test code = 0909767623) 8.8 g/dL 12.0-16.0 L %O2HB (test code = 8838162934) 94.8 % 94.0-99.0 %COHB ART (test code = 5230734448) 0.6 % 0.0-1.5 %METHB ART (test code = 0823933883) 0.0 % 0.4-1.5 L VOL%O2 ART (test code = 2800717775) 11.9 % 15.0-23.0 L NA (test code = 2836534999) 138 mmol/L 135-145 K+ (test code = 7558881082) 4.4 mmol/L 3.5-5.0 AC CA IONZ (test code = 5706298076) 4.80 mg/dL 4.50-5.30 GLUCOSE (test code = 1066879176) 135 mg/dL 70-110 H Lab Interpretation (test code = 31650-1) [facility] 10:55:04* Test Item Value Reference Range Interpretation Comme [facility] POCT GLU (test code = 4301320922) 189 mg/dL 70-110 H Lab Interpretation (test cod e = 73628-5) [facility] + LACTIC TZJT3228-27-20 09:34:48* Test Item Value Reference Range Interpretation Comme nts PH (test code = 5926125396) 7.35 7.32-7.42 PCO2 CARLOS (test code = 3819981760) 36 See_Comment L [Automated messa ge] The system which generated this result transmitted reference range: 41 - 51 mmHg. The reference range was not used to interpret this result as normal/abnormal. PO2 CARLOS (test code = 0260400438) 55 See_Comment HH [Automated messa ge] The system which generated this result transmitted reference range: 25 - 40 mmHg. The reference range was not used to interpret this result as normal/abnormal. HCO3 CARLOS (test code = 4758012476) 19 See_Comment L [Automated messa ge] The system which generated this result transmitted reference range: 24 - 28 mEq/L. The reference range was not used to interpret this result as normal/abnormal. AC VBE(BEAKER) (test code = 7846652858) -6.0 mEq/L THB CARLOS (test code = 7657431059) 9.0 g/dL 12.0-16.0 L %O2HB CARLOS (test code = 8674229163) 89.2 % 52.0-63.0 H %COHB CARLOS (test code = 7752736241) 0.1 % 0.0-1.5 %METHB CARLOS (test code = 8225857318) 0.1 % 0.4-1.5 L VOL%O2 CARLOS (test code = 4692099999) 11.3 % 6.0-12.0 NA (test code = 0925152366) 137 mmol/L 135-145 K+ (test code = 1042924307) 4.3 mmol/L 3.5-5.0 AC CA IONZ (test code = 3561419161) 4.70 mg/dL 4.50-5.30 GLUCOSE (test code = 9712816734) 151 mg/dL 70-110 H LACTIC ACID (test code = 3746373265) 1.91 mmol/L 0.50-2.20 Lab Interpretation (test code = 71636-8) [id number] 00:27:26* Test Item Value Reference Range Interpretation Comme nts TROPONIN I (test code = 2692944821) 0.001 ng/mL <=0.034 CECIL (test code = [...] of biotin. Lab Interpretation (test code = 48480-1) [facility] [id number] 21:27:30* Test Item Value Reference Range Interpretation Comme nts TROPONIN I (test code = 1085273103) 0.002 ng/mL <=0.034 CECIL (test code = [...] of biotin. Lab Interpretation (test code = 25857-6) [facility] PRQ-BFS7063-08-05 21:25:13* Test Item Value Reference Range Interpretation Comme nts NT-proBNP (test code = 56215-4) 76 pg/mL <=125 Lab Interpretation (test cod e = 75207-8) [facility] (66143)2023-01-18 21:16:32* Test Item Value Reference Range Interpretation Comme nts NA (test code = 0268610932) 136 mmol/L 135-145 K (test code = 8192996849) 4.3 mmol/L 3.5-5.0 CL (test code = 9564243987) 105 mmol/L 98-108 CO2 TOTAL (test code = 2820464493) 26 mmol/L 23-31 AGAP (test code = 8722735267) 5 2-16 BUN (test code = 7889924773) 11 mg/dL 7-23 GLUCOSE (test code = 8699391935) 82 mg/dL 70-110 CREATININE (test code = 4616700689) 0.90 mg/dL 0.50-1.04 TOTAL BILI (test code = 9032965417) 0.2 mg/dL 0.1-1.1 CALCIUM (test code = 7313737197) 8.5 mg/dL 8.6-10.6 L T PROTEIN (test code = 2881659848) 6.9 g/dL 6.3-8.2 ALBUMIN (test code = 7372016105) 3.8 g/dL 3.5-5.0 ALK PHOS (test code = 7286222328) 107 U/L 34-122 ALTv (test code = 1742-6) 28 U/L 5-35 AST(SGOT) (test code = 8219326805) 32 U/L 13-40 eGFR (test code = 5194840040) 66.5 mL/min/1.73m2 CECIL (test code = CECIL) [...] imaging tests). Lab Interpretation (test code = 20347-5) [facility] 21:15:51* Test Item Value Reference Range Interpretation Comme nts LIPASE (test code = 8950104227) 68 U/L 0-220 Lab Interpretation (test cod e = 42318-6) [facility] WITH [id number] 20:55:45* Test Item Value Reference Range Interpretation [...] g/dL 31.6-35.1 L RDW-SD (test code = 18177-8) 46.9 fL 39.0-49.9 RDW-CV (test code = 788-0) 16.4 % 12.0-15.5 H PLT (test code = 777-3) 418 See_Comment H [Automated messa ge] The system which generated this result transmitted reference range: 166 - 358 10*3/?L. The reference range was not used to interpret this result as normal/abnormal. MPV (test code = 07653-5) 10.2 fL 9.5-12.9 NRBC/100 WBC (test code = 2579047718) 0.0 See_Comment [Automated me ssage] The system which generated this result transmitted reference range: 0.0 - 10.0 /100 WBCs. The reference range was not used to interpret this result as normal/abnormal. NRBC x10^3 (test code = [id number]) See_Comment [Automated messa ge] The system which generated this result transmitted reference range: 10*3/?L. The reference range was not used to interpret this result as normal/abnormal. GRAN MAT (NEUT) % (test code = 770-8) 60.8 % IMM GRAN % (test code = 7532659115) 0.40 % LYMPH % (test code = 736-9) 30.9 % MONO % (test code = 5905-5) 5.2 % EOS % (test code = 713-8) 1.9 % BASO % (test code = 706-2) 0.8 % GRAN MAT x10^3(ANC) (test code = 0329153306) 5.80 10*3/uL 1.88-7.09 IMM GRAN x10^3 (test code = 8632202207) 0.04 10*3/uL 0.00-0.06 LYMPH x10^3 (test code = 731-0) 2.95 10*3/uL 1.32-3.29 MONO x10^3 (test code = 742-7) 0.50 10*3/uL 0.33-0.92 EOS x10^3 (test code = 711-2) 0.18 10*3/uL 0.03-0.39 BASO x10^3 (test code = 704-7) 0.08 10*3/uL 0.01-0.07 H Lab Interpretation (test code = 21434-4) [id number]:12:00* Test Item Value Reference Range Interpretation Comme [facility] POCT PREG (test code = 1605) negative On board controls acceptable with C Line (test code = 3574) present POCT PREG LOT # (test code = 3575) [id number] POCT PREG TEST DATE ( test code = 3576) Lab Interpretation (test cod e = 98930-9) Normal [facility] [id number] 17:01:15* Test Item Value Reference Range Interpretation Comme [facility] APTT Patient (test code = 3173-2) See_Comment [Automated message] The system which generated this result transmitted reference range: 23 - 38 Seconds. The reference range was not used to interpret this result as normal/abnormal. CECIL (test code = CECIL) The [facility] patient population mean normal value for aPTT is 30 seconds. Lab Interpretation (test code = 50528-3) Normal [facility]. METABOLIC PANEL (32423)2022-01-11 16:59:53* Test Item Value Reference Range Interpretation Comme [facility] NA (test code = 8682351603) 138 mmol/L 135-145 K (test code = 8256698868) 4.9 mmol/L 3.5-5 CL (test code = 3095398699) 108 mmol/L 98-108 CO2 TOTAL (test code = 5733993064) 25 mmol/L 23-31 AGAP (test code = 5491553162) 2-16 BUN (test code = 6447029964) 13 mg/dL 7-23 GLUCOSE (test code = 9158361658) 100 mg/dL 70-110 CREATININE (test code = 5130470431) 1.09 mg/dL 0.5-1.04 H TOTAL BILI (test code = 0685651544) 0.1 mg/dL 0.1-1.1 CALCIUM (test code = 6359894870) 9.0 mg/dL 8.6-10.6 T PROTEIN (test code = 2399634863) 6.4 g/dL 6.3-8.2 ALBUMIN (test code = 3965096852) 3.9 g/dL 3.5-5 ALK PHOS (test code = 9891526854) 119 U/L 34-122 ALTv (test code = 1742-6) 23 U/L 5-35 AST(SGOT) (test code = 6648071486) 24 U/L 13-40 eGFR (test code = 8978945740) mL/min/1.73m2 CECIL (test code = CECIL) Association [...] imaging tests). Lab Interpretation (test code = 71490-1) Abnormal [facility] WITH [id number] 16:49:15* Test Item Value Reference Range Interpretation Comme nts WBC (test code = 6690-2) See_Comment [Risk I/O] The system which generated this result transmitted reference range: 4.30 - 11.10 10*3/?L. The reference range was not used to interpret this result as normal/abnormal. RBC (test code = 789-8) See_Comment [Risk I/O] The system which generated this result transmitted [...] g/dL 31.6-35.1 L RDW-SD (test code = 62443-1) 45.5 fL 39-49.9 RDW-CV (test code = 788-0) 16.9 % 12-15.5 H PLT (test code = 777-3) See_Comment H [Automated messa ge] The system which generated this result transmitted reference range: 166 - 358 10*3/?L. The reference range was not used to interpret this result as normal/abnormal. MPV (test code = 47041-3) 10.3 fL 9.5-12.9 NRBC/100 WBC (test code = 4246273628) See_Comment [Automated Mobilitie ssage] The system which generated this result transmitted reference range: 0.0 - 10.0 /100 WBCs. The reference range was not used to interpret this result as normal/abnormal. NRBC x10^3 (test code = 4389325773) See_Comment [Automated messa ge] The system which generated this result transmitted reference range: 10*3/?L. The reference range was not used to interpret this result as normal/abnormal. GRAN MAT (NEUT) % (test code = 770-8) 55.9 % IMM GRAN % (test code = 1040892177) 0.60 % LYMPH % (test code = 736-9) 33.3 % MONO % (test code = 5905-5) 6.9 % EOS % (test code = 713-8) 2.6 % BASO % (test code = 706-2) 0.7 % GRAN MAT x10^3(ANC) (test code = 1781292523) 4.52 10*3/uL 1.88-7.09 IMM GRAN x10^3 (test code = 7622286145) 0.05 10*3/uL 0-0.06 LYMPH x10^3 (test code = 731-0) 2.70 10*3/uL 1.32-3.29 MONO x10^3 (test code = 742-7) 0.56 10*3/uL 0.33-0.92 EOS x10^3 (test code = 711-2) 0.21 10*3/uL 0.03-0.39 BASO x10^3 (test code = 704-7) 0.06 10*3/uL 0.01-0.07 Lab Interpretation (test code = 65139-8) Abnormal [facility]- XR CHEST 1 [id number] 10:53:00 [facility] 1975 Sex: F Name: JEM FORD [facility] : 1975 Age/S: 45 / F [address] Unit #: [id number] Loc: [place] [address] Phys: Paras Puri MD Acct: [id number] Dis Date: Status: [facility] PHONE #: [phone] Exam Date: 04/13/2021 1035 FAX #: Reason: PRE PROCEDURE EXAMS: CPT: [id number] XR CHEST 1 V 60262 Fluoro Time: DAP (Gy m2): Air Kerma (mGy): LOCATION: T18 EXAM: CHEST 1 VIEW INDICATION: ,PRE PROCEDURE COMPARISON: None. TECHNIQUE: AP chest radiograph. FINDINGS: Lungs are clear bilaterally without effusion. Heart is normal in size. Bones and peripheral soft tissues are unremarkable. IMPRESSION: Lungs are clear. No acute abnormality. at 1053 Reported and signed by: Evan Willis M.D. CC: Paras Puri MD; Dianne Stewart MD PAGE 1 Signed Report Name: JEM FORD [facility] : 1975 Age/S: 45 / F [address] Unit #: [id number] Loc: [place] [address] Phys: Paras Puri MD Acct: [id number] Dis Date: Status: REG SDC PHONE #: [phone] Exam Date: 04/13/2021 1035 FAX #: Reason: PRE PROCEDURE EXAMS: CPT: [id number] XR CHEST 1 V 71705 Fluoro Time: DAP (Gy m2): Air Kerma (mGy): (Continued) Technologist: Bryanna Voss RT (R)(CT) Trnscb Date/Time: 04/13/2021 (2910) [id number] Orig Print D/T: S: 04/13/2021 (1876) PAGE 2 Signed ReportCOMPREHENSIVE METABOLIC [id number] 10:51:00* Test Item Value Reference Range Interpretation [...] = ALKP) 141 Unit/L 45-117 H PROTHROMBIN [id number] 10:42:00* Test Item Value Reference Range [facility]ation [facility] (test code = PTP) [...] Infarction (to prevent recurrent infarct). THROMBOPLASTIN TIME [id number] 10:42:00* Test Item Value Reference Range Interpretation [facility] THROMBOPLASTIN TIME PARTIAL (test code = PTT) 41.5 SECONDS 26-35 H CBC W/AUTO [id number] 10:34:00* Test Item Value Reference Range Interpretation [facility] WHITE BLOOD CELL (test code = WBC) [...] Notes Date/Time Note Provider Source 2023-05-03 13:33:44 Patient's insurance did not cover Symbicort, so [...] ED such as severe SOB and chest pain. Ling Quinn MD PGY-1 Internal Medicine [facility] 2023-04-24 13:22:48 Pharmacy comment: Alternative Requested:NOT COVERED BY INSURENCE PLEASE CHANGE. N Workman MA [facility] 2023-01-18 20:17:00 Formatting of this n ote might be different from the original. Awake, alert oriented X4, respiratory even and unlabored,skin w/d color appropriate for race, moves all ext well, pt encouraged to follow up with pcp and or return as needed Pt given printed and verbal discharge instructions regarding Bronchitis, , Dyspnea, Chest pain, Edema , patient verbralized understanding and signature obtained, patient denies any other concerns. Prescriptions provided Discussed antibiotic therapy and to take until all completed unless adverse reaction occurs - if occurs, discontinue medication and follow up with pcp/seek medical attention Advised to seek medical attention for new/prolonged/worsening of symptoms, No adverse reaction to meds given in ER noted upon discharge Pt ambulated to the [facility] with steady gait Christina Amato RN [facility] 2023-01-18 13:30:21 Formatting of this n ote might be different from the original. Patient reports that she feels like her legs are swelling since yesterday. Patient also reports that she feels like she can't breathe right. Patient coughing at triage and states that the cough started today. Zaina Samuels RN [facility] 2023-01-18 13:28:00 Associated Order(s): EKG-12 Lead ROUTINE ONCE Pre-Procedure Diagnose(s): Dyspnea, unspecified type Post-Procedure Diagnose(s): Dyspnea, unspecified type [facility] Emergency Department Note Patient Name: Jem Ford Date of : 1975 47 year old female Treatment Room: [place] [address] [address] Primary Care Physician: Kyleigh Morrison [facility] Patient Escorted by: Family [5] Mode of Arrival: Personal means [1] EMS Treatment Prior to ED Arrival: Travel and Exposure Screening: Symptoms Does patient have any of these symptoms?: (not recorded) Exposure Screening Has patient had contact with someone with a communicable disease in the last month?: (not recorded) Diseases exposed to:: (not recorded) Is Patient ?: (not recorded) Exposure Date: (not recorded) Chief Complaint: Chief Complaint Patient presents with Edema Shortness of Breath History of Present Illness: Onset yesterday with non-focal chest pressure, constant with no aggravating or relieving factors. Concurrent dyspnea, no aggravating or relieving factors. (+) wheezing. (+) cough, productive. No fever. No rhinorrhea, sore throat. Mild edema to bilateral hands, feet this AM. No nausea, vomiting, diarrhea. No black stools. Episodic blood on paper with strained bowel movement. No dysuria, anuria. (+) smoker. History provided by: Patient Past Medical History/Immunizations: History reviewed. No pertinent past medical history. Tetanus received in last 5 years: Unknown Allergies: Allergies Allergen Reactions Benadryl Allergy Decongestant Swelling Penicillin Unknown - See comments Was told as a child Past Social History: Substance & Sexual Activity No substance use or sexual activity history on file. Past Surgical History: History reviewed. No pertinent surgical history. Review of Systems: Review of Systems Constitutional: Negative. [...] 98 % Measured on Room air Physical Exam Vitals and nursing note reviewed. Constitutional: General: She [...] Content: Thought content normal. Judgment: Judgment normal. Radiology: XR CHEST 2 VW Final Result ORDERING PROVIDER: [...] disease. RL: 4231 End of report. Lab Results: Lab Results CBC WITH DIFF - Abnormal Result [...] 0.01 - 0.07 10*3/uL COMP. METABOLIC PANEL (31333) - Abnormal NA 136 135 - 145 [...] I 0.001 <=0.034 ng/mL THYROID STIMULATING HORMONE EKG: If EKG completed, see Procedure Note. Orders and Treatments: Orders Placed This Encounter Procedures XR CHEST 2 VW COVID-19 (ID NOW TESTING) CBC WITH DIFF COMP. METABOLIC PANEL (69346) LIPASE TROPONIN I N-TERMINAL PRO-BNP THYROID STIMULATING [...] azithromycin (ZITHROMAX) tablet 500 mg First Provider Eval: ED Events Date/Time Event User Comments 01/18/231335 Medical Screening Begins MAYCO DEL RIO MD -- 01/18/231335 First Provider Evaluation MAYCO DEL RIO MD -- No notes of EC Admission Criteria type on file. ED COURSE ED Course as of 01/18/231942Jan 18, 2023 180 Reassess. Symptoms improved. Resting comfortably [RK] ED Course User Index [RK] Mayco Del Rio MD Diagnosis/Impression as of 01/18/231942 Dyspnea, unspecified type Chest pain, unspecified type Bronchitis Edema, unspecified type Procedures: EKG-12 Lead ROUTINE ONCE Date/Time: 01/18/2023 7:41 PM Performed by: Mayco Del Rio MD Authorized by: Mayco Del Rio MD ECG reviewed by ED Physician in the absence of a train director: yes Previous ECG: Previous ECG: Unavailable Interpretation: Interpretation: non-specific Rate: ECG rate: 70 ECG rate assessment: normal Rhythm: Rhythm: sinus rhythm Ectopy: Ectopy: none QRS: QRS axis: Normal (65) ST segments: ST segments: Non-specific T waves: T waves: non-specific Comments: Qtc 453 MDM: Medical Decision Making Primary impression: bronchitis Secondary impression: cough, chest pain Differential Diagnoses, including but not limited to: acute coronary event CHF, COVID, anemia, electrolyte/glucose abnl Problems Addressed: Bronchitis: acute illness or injury Chest pain, unspecified type: acute illness or injury Dyspnea, unspecified type: acute illness or injury Edema, unspecified type: acute illness or injury Amount and/or Complexity of Data Reviewed Independent Historian: Details: self Labs: ordered. Decision-making details documented in ED Course. Radiology: ordered. Decision-making details documented in ED Course. ECG/medicine tests: ordered and independent interpretation performed. Decision-making details documented in ED Course. Discussion of management or test interpretation with external provider(s): N/a Risk Prescription drug management. Risk Details: Unremarkable OBS in ED. Findings and plan discussed with patient. HEART Score 3, low likelihood of acute coronary event. Serial troponin negative. Chest, respiratory symptoms most consistent with bronchitis. First doses in ED. Symptoms improved. No findings that require acute hospitalization today. Flowsheet Documentation: Scoring Tools: No data recorded HEART Score: 3 Disposition/Condition: ED Disposition ED Disposition Disch - Home Condition Stable Comment -- Discharge Medications: Patient's Medications START taking these medications ALBUTEROL 90 [...] taking these medications No medications on file Follow-up: PCP Electronically signed by: Mayco Del Rio MD 01/18/231942 [facility] 2021-04-13 12:57:00 [facility] [place] [facility]) DT Operative Note REPORT#:[id number] REPORT STATUS: Signed DATE:04/13/21 TIME:1257 PATIENT: JEM FORD UNIT #: [id number] ROOM/BED: : 71 AGE: 45 SEX: F ATTEND: Paras Puri MD ADM AUTHOR: Paras Puri MD * ALL edits or amendments must be made on the electronic/computer document * Operative Report Operative Note Note: Procedure Date: 04/13/2021 Procedure: Diagnostic cardiac catheterization, left ventriculogram, and selective coronary angiograms Indication: Progressive angina failed optimized medical management Procedure details: Following informed consent and detailed discussion of procedural risks and benefits with the patient and family that preceded [facility] then followed by adequate moderate sedation induction and local anesthesia administration, diagnostic cardiac catheterization with selective coronary angiograms and left ventriculogram performed via the right radial arterial approach through a 6 Fr sheath using an 5 Fr Jackies and AL1 catheters were successfully completed with no complication and minimal blood loss (EBL < 5 ml) afterwhich the catheter and the arterial sheah were removed with satisfactory hemostasis achieved using radial arm band external compressing device before the patient, who tolerated well the procedure, was discharged from the [facility] in stable condition. Results: I. Diagnostic angiography 1. No angiographically significant epicardial coronary disease in a right dominant coronary circulation 2. LMCA -- normal angiographically 3. LAD -- 30% ostial narrowing 4. LCX -- 30% ostial narrowing 5. Ramus -- 30% ostial narrowing 6. RCA -- scattered 30-40% plaques throughout. II. Left ventriculography Left ventriculogram demonstrated preserved left ventricular systolic function. Estimated LVEF was 60%. LVEDP was 16-18 mmHg. The results were presented and discussed in details with the patient and family. All questions and concerns were addressed satisfactorily at 1427 RPT #: [id number] END OF REPORT [facility] 2021-04-13 10:31:00 [id number] [facility] [address] [place] [address] PATIENT NAME: JEM FORD ADMIT DATE: 04/13/21 ACCOUNT NO: [id number] ROOM NO: AGE: 45 REPORT TYPE: eELECTROCARDIOGRAM SEX: F ADMITTING PHYSICIAN: ATTENDING PHYSICIAN: Paras Puri MD Order: [id number] Test Reason : PRE OP Test Date/Time Stamp: TueApr 13 2021 10:31:39 Blood Pressure : / mmHG Vent. Rate : 081 BPM Atrial Rate : 081 BPM P-R Int : 136 ms QRS Dur : 084 ms QT Int : 388 ms P-R-T Axes : 060 083 071 degrees QTc Int : 450 ms Normal sinus rhythm Normal ECG No previous ECGs available Confirmed by MANDY ESPINOSA MD ([id number]) on 04/16/2021 12:41:39 PM Referred By: Paras Puri Confirmed by:MANDY ESPINOSA MD at 1241 PATIENT NAME: JEM FORD [facility]
--- NOTE | 2024-01-03 17:46 | EKG ---
Test Date: 2024-01-02 Test Time: 19:33:10 Business Process Modeler: YARIEL MEASUREMENT RESULTS: Intervals: Rate: 109 [place]: 124 QRSD: 90 QT: 340 QTc: 457 [place]: P: 52 [place]: 124 QRS: 88 T: 31 INTERPRETIVE STATEMENTS: Sinus tachycardia with premature atrial complexes Possible Anterior infarct, age undetermined Abnormal ECG Compared to ECG 08/06/2023 16:08:04 Atrial premature complex(es) now present Myocardial infarct finding now present Sinus rhythm no longer present Sinus arrhythmia no longer present Electronically Signed On 01-03-24 17:44:27 CDT by Eron Underwood
[2024-01-03] MEDS: Levofloxacin 750mg IV 750 MG/150 ML BAG IV SCH (21:20)
[2024-01-04 07:38] LABS: Absolute Eosinophils 0.1 K/uL (0-0.5); Absolute Lymphocytes (CBC) 3.9 K/uL (0.7-4.9); Absolute Monocytes 0.9 K/uL (0.1-1.3); Absolute Neutrophil 5.6 K/uL (1.8-8.0); Basophils % 0.2 % (0-1.3); Eosinophils % 1.2 % (0-4.4); Hematocrit 32.9 % (36.0-45.0); Hemoglobin 10.6 g/dL (12.0-15.0); MCH 25.3 pg (27.0-35.0); MCHC 32.2 g/dL (32.0-36.0); MCV 78.7 fL (80-100); MPV 8.2 fL (7.6-11.3); Monocytes % 8.1 % (3.3-12.3); Neutrophils % 53.5 % (41.7-73.7); Nucleated Red Blood Cells % 0.1 % (0-0); Platelets 333 thou/uL (152-406); RBC Red Blood Cell Count 4.18 M/uL (3.86-4.86); Red Cell Distribution Width 16.6 % (12.1-15.2)
[2024-01-04 07:49] LABS: Anion Gap 6.5 mEq/L (5.0-15.0); Magnesium 1.8 mg/dL (1.6-2.4); Potassium 3.5 mEq/L (3.5-5.1)
[2024-01-04 12:35] VITALS: TEMP 97
[2024-01-04] MEDS: MAGNESIUM SULFATE 1 gm IVPB 1 GM/100 ML BAG IV ONE (14:49)
[2024-01-04] MEDS: POTASSIUM CL SA 10 MEQ TAB PO ONE (14:49)
[2024-01-04 14:54] VITALS: O2SAT 96
[2024-01-04 16:23] VITALS: BP 132/75
--- NOTE | 2024-01-04 17:01 | EKG ---
Test Date: 2024-01-02 Test Time: 20:26:20 [employer]: YARIEL MEASUREMENT RESULTS: Intervals: Rate: 93 [place]: 124 QRSD: 92 QT: 362 QTc: 450 [place]: P: 56 [place]: 124 QRS: 86 T: 55 INTERPRETIVE STATEMENTS: Normal sinus rhythm Septal infarct, age undetermined Abnormal ECG Compared to ECG 01/02/2024 19:33:10 Sinus tachycardia no longer present Atrial premature complex(es) no longer present Myocardial infarct finding still present Electronically Signed On 01-04-24 16:57:42 CDT by Eron Underwood
--- NOTE | 2024-01-05 08:55 | ECHO ---
HEIGHT: 5 ft 6 in WEIGHT: 234 lb 0 oz DATE OF STUDY: 01/04/[address]: Marcus Pena MD 2-DIMENSIONAL: YES M.MODE: YES DOPPLER: YES COLOR FLOW: YES TDS: PORTABLE: YES DEFINITY: BUBBLE STUDY: DIAGNOSIS: PULMONARY EDEMA CARDIAC HISTORY: CATHERIZATION: NO SURGERY: NO PROSTHETIC VALVE: NO PACEMAKER: NO MEASUREMENTS (cm) DIASTOLIC (NORMALS) SYSTOLIC (NORMALS) IVSd 1.0 (0.6-1.2) LA Diam 2.5 (1.9-4.0) LVEF 60-65% LVIDd 4.2 (3.5-5.7) LVIDs 3.3 (2.0-3.5) %FS 21% LVPWd 1.1 (0.6-1.2) Ao Diam 2.6 (2.0-3.7) 2 DIMENSIONAL ASSESSMENT: RIGHT ATRIUM: NORMAL LEFT ATRIUM: NORMAL RIGHT VENTRICLE: NORMAL LEFT VENTRICLE: NORMAL TRICUSPID VALVE: NORMAL MITRAL VALVE: NORMAL PULMONIC VALVE: NORMAL AORTIC VALVE: NORMAL PERICARDIAL EFFUSION: NONE AORTIC ROOT: NORMAL LEFT VENTRICULAR WALL MOTION: NORMAL DOPPLER/COLOR FLOW: NORMAL COMMENTS: 1. NORMAL LEFT VENTRICULAR SYSTOLIC FUNCTION, EJECTION FRACTION 60-65%, NORMAL WALL MOTION 2. NORMAL DIASTOLIC FUNCTION 3. ELEVATED FILLING PRESSURE (RIGHT ATRIAL PRESSURE 10-15 mmHg) TECHNOLOGIST: SOHAM DOCKERY
== END 2024-01-04 19:00 | disposition home or self-care (01) | DRG 871 ==
LOC: ER 19:36 → ERHOLD 21:33 → 4TH 01-03 00:32
PROVIDERS: ADMIT Family Medicine; ATTEND Hospitalist
DX: A41.9 Sepsis, unspecified organism (principal); J18.9 Pneumonia, unspecified organism; E87.20 Acidosis, unspecified; J81.1 Chronic pulmonary edema; J44.0 Chronic obstructive pulmonary disease with (acute) lower respiratory infection; J44.1 Chronic obstructive pulmonary disease with (acute) exacerbation; R06.03 Acute respiratory distress; E66.9 Obesity, unspecified; F17.210 Nicotine dependence, cigarettes, uncomplicated; R65.20 Severe sepsis without septic shock; Z68.37 Body mass index [BMI] 37.0-37.9, adult; Z11.52 Encounter for screening for COVID-19
CPT/HCPCS: 36415; 71045; 80048; 80053; 80307; 81001; 83605; 83735; 83880; 84145; 84484; 85025; 85610; 85730; 87040; 87086; 87088; 87811; 93005; 93306; 94640; 94760; 99285; J1650; J1940; J2270; J2405; J3475; J7030; J7613; J7644

== ENCOUNTER 2024-07-02 18:12 | Emergency (ER) | payer MEDICARE ==
[2024-07-02] MEDS ORDERED: METHYLPREDNISOLONE 125 MG INJ ONE (18:57)
[2024-07-02] MEDS ORDERED: ONDANSETRON 4 MG/2 ML VIAL ONE (18:58)
[2024-07-02] MEDS ORDERED: METHOCARBAMOL 1,000 MG/10 ML VIAL ONE (18:58)
[2024-07-02] MEDS ORDERED: HYDROCODONE/APAP 10/325 TAB ONE (18:58)
[2024-07-02] MEDS ORDERED: KETOROLAC 30 MG/ML INJ ONE (18:58)
[2024-07-02] MEDS ORDERED: LEVALBUTEROL 1.25 MG/3 ML NEB ONE (18:58)
[2024-07-02] MEDS ORDERED: NA CHLORIDE 0.9% 100 ML ONE (18:59)
[2024-07-02 19:08] LABS: Absolute Basophils 0.1 K/uL (0-0.5); Absolute Eosinophils 0.1 K/uL (0-0.5); Absolute Lymphocytes (CBC) 1.8 K/uL (0.7-4.9); Absolute Monocytes 0.6 K/uL (0.1-1.3); Absolute Neutrophil 2.3 K/uL (1.8-8.0); Basophils % 1.2 % (0-1.3); Eosinophils % 1.3 % (0-4.4); Hematocrit 36.1 % (36.0-45.0); Hemoglobin 11.6 g/dL (12.0-15.0); Lymphocytes % 36.9 % (15.3-44.8); MCV 75.1 fL (80-100); MPV 8.7 fL (7.6-11.3); Monocytes % 12.3 % (3.3-12.3); Neutrophils % 48.3 % (41.7-73.7); Platelets 268 thou/uL (152-406); RBC Red Blood Cell Count 4.81 M/uL (3.86-4.86)
[2024-07-02 19:31] LABS: Albumin 3.3 g/dL (3.4-5.0); Albumin/Globulin Ratio 0.7 (1.1-1.8); Anion Gap 5.8 mEq/L (5.0-15.0); Bilirubin Total 0.2 mg/dL (0.2-1.0); Globulin 4.5 g/dL (2.3-3.5); Potassium 3.8 mEq/L (3.5-5.1); Protein, Total 7.8 g/dL (6.4-8.2)
--- NOTE | 2024-07-02 19:34 | RAD REPORT ---
Procedure: Chest Single View HISTORY: Shortness of breath COMPARISON: 2023 FINDINGS: The lungs appear clear of acute infiltrate. No significant pleural effusion noted. The heart is normal size. IMPRESSION: No acute abnormality is displayed.
[2024-07-02 21:30] LABS: Specific Gravity 1.029 (1.005-1.030)
[2024-07-02 21:32] LABS: Specific Gravity 1.029 (1.005-1.030); Urine Bacteria None Seen /HPF (<20); Urine Bilirubin NEGATIVE (Negative); Urine Blood Negative (Negative); Urine Clarity Extremely Turbid (Clear); Urine Color Yellow (Yellow); Urine Culture Reflex Order REFLEXED; Urine Glucose NEGATIVE (Negative); Urine Ketones NEGATIVE (Negative); Urine Microscopic Reflex YN ORDER UMIC; Urine Mucus Slight /HPF (None Seen); Urine Nitrite 2+ (Negative); Urine Protein TRACE (Negative); Urine Urobilinogen Normal (Normal); Urine WBC Clump Rare /HPF (None Seen); Urine Yeast (Budding) Trace /HPF (None Seen); Urine pH 5.5 (5.0-7.0)
--- NOTE | 2024-07-02 21:48 | EDPHYS ---
Physician Documentation [facility] Name: April Ford Age: 48 yrs Sex: Female : 1975 Arrival Date: 07/02/2024 Time: 18:12 Bed 5 Private MD: ED Physician Jil San HPI: 07/02 18:30 This 48 yrs old Female presents to ER via EMS with complaints of Low Back Pain. cp 18:30 The patient presents with pain that is acute. The symptoms are located in the low back. cp The pain does not radiate. The problem was sustained started after lifting ice at work 2 days ago. Onset: The symptoms/episode began/occurred gradually, and became worse yesterday. Associated signs and symptoms: Pertinent positives: Pertinent negatives: abdominal pain, chest pain, dysuria, fever, hematuria, incontinence, numbness, urinary retention. Patient also c/o shortness of breath today. 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 - Infectious Disease History:: Denies. - Social history:: Smoking status: unknown. ROS: 18:35 Constitutional: Negative for body aches, chills, fever, poor PO intake, cp 18:35 Cardiovascular: Negative for chest pain, edema, palpitations, cp 18:35 Eyes: Negative for injury, pain, redness, and discharge, cp 18:35 ENT: Negative for drainage from ear(s), ear pain, sore throat, difficulty swallowing, cp difficulty handling secretions, 18:35 Respiratory: Positive for shortness of breath, at rest. 18:35 Abdomen/GI: Negative for abdominal pain, vomiting, diarrhea, constipation, bowel incontinence, 18:35 Back: Positive for pain at rest, pain with movement, of the low back area and mid back area, Negative for injury or acute deformity, 18:35 : Negative for urinary symptoms, pelvic pain, difficulty urinating, 18:35 Neuro: Negative for altered mental status, headache, numbness, weakness, 18:35 All other systems are negative, Exam: 18:40 Constitutional: The patient appears in no acute distress, alert, awake, cp non-diaphoretic, non-toxic, well developed, well nourished, obese, uncomfortable, 18:40 Head/Face: Normocephalic, atraumatic. cp 18:40 Eyes: Periorbital structures: appear normal, Conjunctiva: normal, no exudate, no injection, Sclera: no appreciated abnormality, Lids and lashes: appear normal, bilaterally, 18:40 ENT: External ear(s): are unremarkable, Nose: is normal, Mouth: Lips: moist, Oral mucosa: moist, Posterior pharynx: Airway: no evidence of obstruction, patent, 18:40 Neck: ROM/movement: is normal, is supple, without pain, no range of motions limitations, 18:40 Chest/axilla: Inspection: normal, 18:40 Cardiovascular: Rate: normal, Rhythm: regular, Edema: is not appreciated, JVD: is not appreciated, 18:40 Respiratory: the patient does not display signs of respiratory distress, Respirations: labored breathing, that is mild, Breath sounds: bronchial sounds, that are mild, are heard diffusely, decreased breath sounds, that are mild, throughout, stridor, is not appreciated, 18:40 Abdomen/GI: Inspection: abdomen appears normal, Bowel sounds: active, all quadrants, Palpation: abdomen is soft and non-tender, in all quadrants, 18:40 Back: pain, that is moderate, of the low back area and mid back area, ROM is painful, with all movement, 18:40 Neuro: Orientation: to person, place \T\ time. Mentation: is normal, Motor: moves all fours, strength is normal, Sensation: is normal, Vital Signs: 18:17 BP 138 / 93; Pulse 94; Resp 18; Temp 97.2; Pulse Ox 98% on R/A; Weight 104.33 kg; ph Height 5 ft. 7 in. ; 19:05 BP 133 / 85; Pulse 85; Resp 17; Pulse Ox 97% on R/A; Pain 7/10; rg5 20:00 BP 125 / 68; Pulse 81; Resp 18; Pulse Ox 98% on R/A; rg5 21:00 BP 113 / 52; Pulse 87; Resp 18; Pulse Ox 97% on R/A; Pain 2/10; rg5 22:00 BP 105 / 57; Pulse 79; Resp 18; Pulse Ox 96% on R/A; Pain 2/10; rg5 18:17 Body Mass Index 36.02 (104.33 kg, 170.18 cm) ph 19:05 Pain Scale: Adult rg5 21:00 Pain Scale: Adult rg5 22:00 Pain Scale: Adult rg5 MDM: 21:46 Data reviewed: vital signs, nurses notes, lab test result(s), radiologic studies, plain cp films, and as a result, I will discharge patient. 21:46 Differential diagnosis: sciatica, Herniated disc UTI. I considered the following cp discharge prescriptions or medication management in the emergency department Medications were administered in the Emergency Department. See MAR. Counseling: I had a detailed discussion with the patient and/or guardian regarding the historical points, exam findings, and any diagnostic results supporting the discharge/admit diagnosis, lab results, radiology results, the need for outpatient follow up, a family practitioner, to return to the emergency department if symptoms worsen or persist or if there are any questions or concerns that arise at home. Response to treatment: the patient's symptoms have markedly improved after treatment, and as a result, I will discharge patient. 21:47 Medical Screening Exam initiated 07/02 18:24 Order name: CBC with Diff; Complete Time: 20:34 07/02 20:35 Interpretation: Normal except: HGB 11.6; MCH 24.0; MCV 75.1; RDW 17.0. 07/02 18:24 Order name: CMP; Complete Time: 20:34 07/02 20:35 Interpretation: Normal except: CL 108; CRE 1.20; GFR 55; ALK 137; ALB 3.3; GLOB 4.5; cp A/G 0.7. 07/02 18:24 Order name: Lipase; Complete Time: 20:34 07/02 20:36 Interpretation: Reviewed. 07/02 18:24 Order name: Urinalysis w/ reflexes; Complete Time: 21:35 07/02 21:35 Interpretation: Normal except: [facility] Extremely Turbid; UPROT TRACE; UNIT 2+; UESTR 25; cp UWBC 10-20; URBC 5-10; BYST Trace. 07/02 18:24 Order name: Test, Urine; Complete Time: 21:35 cp 07/02 21:35 Order name: Urine Culture EDMS 07/02 18:24 Order name: XRAY Chest (1 view); Complete Time: 20:34 cp 07/02 20:35 Interpretation: Report review. cp 07/02 18:24 Order name: IV Saline Lock; Complete Time: 19:04 cp 07/02 18:24 Order name: Labs collected and sent; Complete Time: 19:04 cp 07/02 18:24 Order name: Accucheck Blood Glucose; Complete Time: 18:53 cp Administered Medications: 19:20 Drug: MethylPrednisoLONE IVP 125 mg IVP once Route: IVP; Site: right antecubital; rg5 20:48 Follow up: Response: No adverse reaction rg5 19:20 Drug: Levalbuterol Inhalation 1.25 mg Inhalation once Route: Inhalation; rg5 19:21 Drug: TORadol - Ketorolac IVP 15 mg IVP once Route: IVP; Site: right antecubital; rg5 20:49 Follow up: Response: No adverse reaction; Pain is decreased rg5 19:21 Drug: Ondansetron IVP 4 mg IVP once; over 2 minutes Route: IVP; Site: right antecubital;rg5 20:49 Follow up: Response: No adverse reaction rg5 19:21 Drug: Methocarbamol IVPB 1 grams IVPB once over 1 hrs; (mix in NS 100 mL) Route: IVPB; rg5 Infused Over: 1 hrs; Site: right antecubital; 20:48 Follow up: IV Status: Completed infusion; IV Intake: 100ml rg5 19:21 Drug: HYDROcodone-acetaminophen PO 10 mg-325 mg 1 tabs PO once Route: PO; rg5 20:48 Follow up: Response: No adverse reaction; Pain is decreased rg5 21:51 Drug: Rocephin IV 1 grams IV at calculated rate once; Given slow IV push per pharmacy rg5 instructions Route: IV; Rate: calculated rate; Site: right antecubital; 22:00 Follow up: IV Status: Completed infusion; IV Intake: 20ml rg5 Disposition Summary: 07/02/24 21:47 Discharge Ordered Notes: Location: Home cp Problem: new cp Symptoms: have improved cp Condition: Stable cp Diagnosis - Shortness of breath cp - Low back pain cp - UTI/ Urinary tract infection, site not specified cp Followup: cp - With: Private Physician - When: 2 - 3 days - Reason: Recheck today's complaints Discharge Instructions: - Discharge Summary Sheet cp - Shortness of Breath, Adult cp - Urinary Tract Infection, Adult cp - Heat Therapy cp - Back Exercises cp Forms: - Medication Reconciliation Form cp - Antibiotic Education cp - Prescription Opioid Use cp - Patient Portal Instructions cp - Leadership Thank You Letter cp - Work release form rv1 Prescriptions: - albuterol sulfate 90 mcg/actuation Inhalation HFA Aerosol Inhaler - inhale 1 puff INHALATION route every 4-6 hours as needed for shortness of cp breath or wheezing; 1 unit; Refills: 0, Product Selection Permitted - Diclofenac Sodium 75 mg Oral Tablet Sustained Release - take 1 tablet ORAL route 2 times per day; 30 tablet; Refills: 0, Product cp Selection Permitted - cefpodoxime 200 mg Oral tablet - take 1 tablet ORAL route every 12 hours for 7 days with food; 14 tablet; cp Refills: 0, Product Selection Permitted - methocarbamol 750 mg Oral tablet - take 2 tablets ORAL route 3 times per day; 30 tablet; Refills: 0, Product cp Selection Permitted Signatures: Dispatcher [employer] Arpita Lugo, RN RN Yogesh Turner PA PA cp Gallardo, Rommel, RN RN rg5
--- NOTE | 2024-07-02 21:48 | ER ---
Nurse's Notes [facility] Name: April Ford Age: 48 yrs Sex: Female : 1975 Arrival Date: 07/02/2024 Time: 18:12 Bed 5 Private MD: Diagnosis: Shortness of breath;Low back pain;UTI/ Urinary tract infection, site not specified Presentation: 07/02 18:17 Chief complaint: EMS states: Low/mid back pain that pt noticed yesterday after lifting ph ice at work, pain does not radiate. Coronavirus screen: Vaccine status: Patient reports being unvaccinated. Ebola Screen: No symptoms or risks identified at this time. Initial Sepsis Screen: Does the patient meet any 2 criteria? No. Patient's initial sepsis screen is negative. Does the patient have a suspected source of infection? No. Patient's initial sepsis screen is negative. Risk Assessment: Do you want to hurt yourself or someone else? Patient reports no desire to harm self or others. Onset of symptoms was July 02, 2024. 18:17 [facility] Of Ar[facility]: [facility] 18:17 Acuity: BALDEMAR 3 ph Triage Assessment: 18:20 General: Appears in no apparent distress. uncomfortable, Behavior is calm, cooperative. ph Pain: Complains of pain in lumbar area. Neuro: Level of Consciousness is awake, alert, obeys commands, Oriented to person, place, time, situation. Cardiovascular: Capillary refill < 3 seconds in bilateral fingers Patient's skin is warm and dry. Derm: Skin is pink, warm \T\ dry. Musculoskeletal: Circulation, motion, and sensation intact. Range of motion: intact in all extremities. 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 - Infectious Disease History:: Denies. - Social history:: Smoking status: unknown. Screenin:21 [facility] ED Fall Risk Assessment (Adult) History of falling in the last 3 months, ph including since admission No falls in past 3 months (0 pts) Confusion or Disorientation No (0 pts) Intoxicated or Sedated No (0 pts) Impaired Gait No (0 pts) Mobility Assist Device Used No (0 pt) Altered Elimination No (0 pt) Score/Fall Risk Level 0 - 2 = Low Risk Oriented to surroundings, Maintained a safe environment, Hourly rounding (assess needs \T\ fall precautionary measures) done. Abuse screen: Denies threats or abuse. Denies injuries from another. Nutritional screening: No deficits noted. Tuberculosis screening: No symptoms or risk factors identified. Assessment: 19:04 General: SEE TRIAGE ASSESSMENT. ph 19:05 General: Appears in no apparent distress. comfortable, Behavior is calm, cooperative, rg5 appropriate for age. 19:05 Pain: Complains of pain in back. Neuro: Level of Consciousness is awake, alert, obeys rg5 commands, Oriented to person, place, time, situation. Cardiovascular: Denies chest pain. Respiratory: Reports shortness of breath cough that is Airway is patent Trachea midline Respiratory effort is even, unlabored, Respiratory pattern is regular, symmetrical, Breath sounds are clear. GI: Abdomen is round non-distended. : No signs and/or symptoms were reported regarding the genitourinary system. EENT: No signs and/or symptoms were reported regarding the EENT system. Derm: Skin is intact, Skin is dry, Skin is normal, Skin temperature is warm. Musculoskeletal: Circulation, motion, and sensation intact. Range of motion: intact in all extremities. 20:00 Reassessment: Patient and/or family updated on plan of care and expected duration. Pain rg5 level reassessed. Patient is alert, oriented x 3, equal unlabored respirations, skin warm/dry/pink. Patient states symptoms have improved. 21:40 Reassessment: Patient and/or family updated on plan of care and expected duration. Pain rg5 level reassessed. Patient is alert, oriented x 3, equal unlabored respirations, skin warm/dry/pink. Patient states feeling better. Patient states symptoms have improved. Vital Signs: 18:17 BP 138 / 93; Pulse 94; Resp 18; Temp 97.2; Pulse Ox 98% on R/A; Weight 104.33 kg; ph Height 5 ft. 7 in. ; 19:05 BP 133 / 85; Pulse 85; Resp 17; Pulse Ox 97% on R/A; Pain 7/10; rg5 20:00 BP 125 / 68; Pulse 81; Resp 18; Pulse Ox 98% on R/A; rg5 21:00 BP 113 / 52; Pulse 87; Resp 18; Pulse Ox 97% on R/A; Pain 2/10; rg5 22:00 BP 105 / 57; Pulse 79; Resp 18; Pulse Ox 96% on R/A; Pain 2/10; rg5 18:17 Body Mass Index 36.02 (104.33 kg, 170.18 cm) ph 19:05 Pain Scale: Adult rg5 21:00 Pain Scale: Adult rg5 22:00 Pain Scale: Adult rg5 ED Course: 18:16 Patient arrived in ED. ph 18:17 Jil San MD is Attending Physician. gb1 18:18 Triage completed. ph 18:18 Arpita Carter RN is Primary Nurse. ph 18:21 Yogesh Mac PA is PHCP. cp 18:21 Arm band placed on Patient placed in an exam room, on a stretcher. ph 18:21 Patient has correct armband on for positive identification. Bed in low position. Call light in reach. Side rails up X2. Pulse ox on. NIBP on. Door closed. Noise minimized. Warm blanket given. 19:02 XRAY Chest (1 view) In Process Unspecified. EDMS 19:04 Initial lab(s) drawn, by ED staff, sent to lab. Inserted saline lock: 20 gauge in right ph antecubital area, using aseptic technique. Blood collected. Flushed with 10 mL NS. 19:05 No provider procedures requiring assistance completed. rg5 21:24 Urinalysis w/ reflexes Sent. vk 22:04 Provided Education on: POST ER CARE. rg5 22:04 IV discontinued, bleeding controlled, No redness/swelling at site. Pressure dressing rg5 applied. Administered Medications: 19:20 Drug: MethylPrednisoLONE IVP 125 mg IVP once Route: IVP; Site: right antecubital; rg5 20:48 Follow up: Response: No adverse reaction rg5 19:20 Drug: Levalbuterol Inhalation 1.25 mg Inhalation once Route: Inhalation; rg5 19:21 Drug: TORadol - Ketorolac IVP 15 mg IVP once Route: IVP; Site: right antecubital; rg5 20:49 Follow up: Response: No adverse reaction; Pain is decreased rg5 19:21 Drug: Ondansetron IVP 4 mg IVP once; over 2 minutes Route: IVP; Site: right antecubital;rg5 20:49 Follow up: Response: No adverse reaction rg5 19:21 Drug: Methocarbamol IVPB 1 grams IVPB once over 1 hrs; (mix in NS 100 mL) Route: IVPB; rg5 Infused Over: 1 hrs; Site: right antecubital; 20:48 Follow up: IV Status: Completed infusion; IV Intake: 100ml rg5 19:21 Drug: HYDROcodone-acetaminophen PO 10 mg-325 mg 1 tabs PO once Route: PO; rg5 20:48 Follow up: Response: No adverse reaction; Pain is decreased rg5 21:51 Drug: Rocephin IV 1 grams IV at calculated rate once; Given slow IV push per pharmacy rg5 instructions Route: IV; Rate: calculated rate; Site: right antecubital; 22:00 Follow up: IV Status: Completed infusion; IV Intake: 20ml rg5 Medication: 18:21 VIS not applicable for this client. ph Intake: 20:48 IV: 100ml; Total: 100ml. rg5 22:00 IV: 20ml; Total: 120ml. rg5 Outcome: 21:47 Discharge ordered by . cp 22:03 Discharged to home ambulatory, rg5 22:03 Condition: stable 22:03 Discharge instructions given to patient, family, Instructed on discharge instructions, follow up and referral plans. Demonstrated understanding of instructions, follow-up care, medications, Prescriptions given X 4, 22:14 Patient left the ED. sb4 Addendum: 07/04/2024 18:55 Addendum: Culture Results: Positive urine culture. No further action required. Bacteria i w sensitive to prescribed antibiotic. Signatures: Dispatcher [employer] EDMS Danielle Workman RN RN Arpita Carter RN RN ph Page, Corey, PA PA cp Brown, Sophia, PA-C PAMike sb4 Jil San MD MD gb1 Any Rodriguez Rommel, RN RN rg5
[2024-07-02] MEDS ORDERED: CEFTRIAXONE 1000 MG/VIAL ONE (21:54)
[2024-07-02 22:41] VITALS: TEMP 97.2
[2024-07-02 22:46] VITALS: BP 105/57; O2SAT 96
== END 2024-07-02 22:14 | disposition home or self-care (01) ==
LOC: ER 18:12
DX: N39.0 Urinary tract infection, site not specified (principal); R06.02 Shortness of breath
CPT/HCPCS: 36415; 71045; 80053; 81001; 81025; 83690; 85025; 87077; 87086; 87088; 87186; 96365; 96375; 99285; J0696; J2405; J2800; J2919; J7614

== ENCOUNTER 2025-01-07 18:37 | Inpatient (IN) | payer MEDICARE ==
[2025-01-07 19:05] LABS: Absolute Lymphocytes (CBC) 3.2 K/uL (0.7-4.9); Hematocrit 31.2 % (36.0-45.0); Hemoglobin 10.1 g/dL (12.0-15.0); MCH 24.8 pg (27.0-35.0); MCHC 32.3 g/dL (32.0-36.0); MCV 76.9 fL (80-100); MPV 8.5 fL (7.6-11.3); Nucleated RBC Absolute Count 0.0 (0-0); Nucleated Red Blood Cells % 0.0 % (0-0); RBC Red Blood Cell Count 4.06 M/uL (3.86-4.86); White Blood Count 9.80 thou/uL (4.3-10.9)
[2025-01-07] MEDS ORDERED: FUROSEMIDE 40 MG/4 ML VIAL ONE (19:09)
[2025-01-07 19:12] LABS: PT Prothrombin Time 12.1 SECONDS (10-13.0); Protime INR 1.07
[2025-01-07 19:46] LABS: ALT/SGPT 26 U/L (13-56); AST/SGOT 14 U/L (15-37); Albumin 3.1 g/dL (3.4-5.0); Albumin/Globulin Ratio 0.8 (1.1-1.8); Alkaline Phosphatase 115 U/L (45-117); Anion Gap 6.8 mEq/L (5.0-15.0); BUN Blood Urea Nitrogen 14 mg/dL (7-18); Globulin 3.9 g/dL (2.3-3.5); Glucose Level 117 mg/dL (74-106); Magnesium 1.8 mg/dL (1.6-2.4); NT PRO-BNP 8 pg/mL (<125); Potassium 3.8 mEq/L (3.5-5.1); Troponin High Sensitivity 4.0 pg/mL (<58.9)
[2025-01-07 19:47] LABS: Bilirubin Indirect, Calculated 0.0 mg/dL (0.2-0.8)
--- NOTE | 2025-01-07 19:55 | EDPHYS ---
Physician Documentation [facility] Name: April Ford Age: 49 yrs Sex: Female : 1975 Arrival Date: 01/07/2025 Time: 18:37 Bed 14 Private MD: ED Physician Daryl Leigh HPI: 01/07 18:51 This 49 yrs old Female presents to ER via Ambulatory with complaints of Swelling all sb4 over, Shortness Of Breath, Numbness Of Arm. 18:51 Patient reports progressively worsening shortness of breath, bilateral lower extremity sb4 swelling, abdominal swelling for about 5 days now. She denies any history of congestive heart failure, chronic kidney disease, or cirrhosis. Denies any history of retaining fluid like this. Thinks that her blood pressure medication might have a diuretic in it but is not sure the name of it. Did not take her medications this morning. Denies any chest pain but does feel very short of breath walking short distances. Historical: - Allergies: 18:50 PENICILLINS; dd2 - PMHx: 18:50 Asthma; Anxiety; diabetes mellitus; chronic back pain; Migraines; Heart block; Panic dd2 Attacks; - PSHx: 18:50 Ankle-Left; Ligation of fallopian tube; dd2 - Immunization history:: Adult Immunizations unknown. - Infectious Disease History:: Denies. - Social history:: Smoking status: Patient/guardian denies using tobacco, but has a distant history of tobacco abuse. ROS: 18:51 Constitutional: Negative for fever, chills, and weight loss, sb4 18:51 Cardiovascular: Positive for edema, 18:51 Respiratory: Positive for dyspnea on exertion, shortness of breath, 18:51 Abdomen/GI: Positive for abdominal distension, 18:51 All other systems are negative, Exam: 18:51 Head/Face: Normocephalic, atraumatic. Eyes: Extra-ocular motions intact. Periorbital sb4 areas with no swelling, redness, or edema. ENT: Mucous membranes moist. Skin: Warm, dry with normal turgor. Normal color with no rashes, no lesions, and no evidence of cellulitis. 18:51 Constitutional: The patient appears alert, awake, obese, in obvious distress, mildly distressed, restless, 18:51 Cardiovascular: Rate: tachycardic, Rhythm: regular, Edema: 1+ edema to level of left midcalf and right midcalf, 18:51 Respiratory: Breath sounds: rales, that are mild, are scattered, 18:51 Abdomen/GI: Inspection: distension, that is moderate, in the right lower quadrant and left lower quadrant, Vital Signs: 18:48 BP 178 / 96; Pulse 107; Resp 24; Pulse Ox 100% ; Weight 117.93 kg (M); dd2 19:36 BP 175 / 85; Pulse 90; Resp 20 S; Pulse Ox 99% on R/A; kt5 20:20 BP 160 / 99; Pulse 82; Resp 18; Pulse Ox 99% on R/A; kt5 20:45 BP 143 / 91; Pulse 86; Resp 20; Pulse Ox 98% on NC; kt5 21:30 BP 166 / 90; Pulse 82; Resp 18; Pulse Ox 98% ; kt5 22:35 BP 138 / 60; Pulse 82; Resp 18 S; Pulse Ox 96% on R/A; kt5 23:41 BP 121 / 59; Pulse 84; Resp 18 S; Pulse Ox 98% on R/A; kt5 01/08 01:01 BP 132 / 64; Pulse 78; Resp 18 S; Pulse Ox 99% on R/A; kt5 MDM: 01/07 18:43 Medical Screening Exam initiated sb4 18:53 Differential diagnosis: viral Infection, bacterial infection, URI, bronchitis, sb4 pneumonia CHF, acute kidney failure, cirrhosis. Care significantly affected by the following chronic conditions: Hypertension, Obesity. 19:45 Independent interpretation of the following test(s) in the Emergency Department X-Ray: sb4 My interpretation is My interpretation of the chest x-ray image is haziness at bilateral lung bases without lobar consolidation or cardiomegaly. 19:53 Data reviewed: vital signs, nurses notes, lab test result(s), EKG, radiologic studies, sb4 and as a result, I will admit patient. Consideration of Admission/Observation Patient was admitted/placed on observation. Counseling: I had a detailed discussion with the patient and/or guardian regarding the historical points, exam findings, and any diagnostic results supporting the discharge/admit diagnosis, the presence of at least one elevated blood pressure reading (>120/80) during this emergency department visit, lab results, radiology results, the need for further work-up and treatment in the hospital. 01/07 18:50 Order name: Basic Metabolic Panel; Complete Time: 19:48 sb4 01/07 18:50 Order name: CBC with Diff; Complete Time: 19:08 sb4 01/07 18:50 Order name: LFT's; Complete Time: 19:48 sb4 01/07 18:50 Order name: Magnesium; Complete Time: 19:48 sb4 01/07 18:50 Order name: NT PRO-BNP; Complete Time: 19:48 sb4 01/07 18:50 Order name: PT-INR; Complete Time: 19:14 sb4 01/07 18:50 Order name: Troponin HS; Complete Time: 19:48 sb4 01/07 18:51 Order name: Blood Culture Adult (2) sb4 01/07 18:51 Order name: Lactate w/ 2H reflex if indic.; Complete Time: 19:49 sb4 01/07 22:17 Order name: CBC with Automated Diff EDMS 01/07 22:17 Order name: CBC with Automated Diff EDMS 01/07 22:17 Order name: Comprehensive Metabolic Panel EDMS 01/07 22:17 Order name: Comprehensive Metabolic Panel EDMS 01/07 22:17 Order name: Troponin High Sensitivity EDMS 01/07 22:17 Order name: Troponin High Sensitivity EDMS 01/07 22:17 Order name: Troponin High Sensitivity; Complete Time: 08:03 EDMS 01/07 22:17 Order name: Troponin High Sensitivity EDMS 01/07 18:50 Order name: XRAY Chest (1 view); Complete Time: 08:03 sb4 01/07 20:25 Order name: Chest For Pe Angio; Complete Time: 08:03 EDMS 01/07 22:19 Order name: Echo with Doppler EDMS 01/07 18:50 Order name: Cardiac monitoring; Complete Time: 18:51 sb4 01/07 18:50 Order name: EKG - Nurse/Tech; Complete Time: 19:34 sb4 01/07 18:50 Order name: IV Saline Lock; Complete Time: 18:56 sb4 01/07 18:50 Order name: Labs collected and sent; Complete Time: 18:56 sb4 01/07 18:50 Order name: O2 Per Protocol; Complete Time: 18:56 sb4 01/07 18:50 Order name: O2 Sat Monitoring; Complete Time: 18:56 sb4 EC:37 Rate is 84 beats/min. Rhythm is regular, Normal Sinus Rhythm. NM interval is normal at sb4 128 msec. QRS interval is normal at 90 msec. QT interval is normal at 380 msec. No Q waves. T waves are Normal. No ST changes noted. Clinical impression: Normal ECG. Interpreted by me. Reviewed by me. Administered Medications: 19:34 Drug: Furosemide IVP 40 mg IVP once; give over 2 minutes Route: IVP; Site: right kt5 forearm; 20:45 Follow up: Response: No adverse reaction; Other kt5 20:17 Drug: Hydrocodone-Acetaminophen PO (7.5 mg-325 mg) 1 tabs PO once Route: PO; kt5 20:45 Follow up: Response: No adverse reaction; Pain is decreased kt5 Disposition: 18:56 I was immediately available on-site in the Emergency Department for consultation in the ms3 care of the patient. Disposition Summary: 01/07/25 19:54 Hospitalization Ordered Notes: Hospitalization Status: Inpatient Admission sb4 Provider: Sushant Monae sb4 Condition: Fair sb4 Problem: new sb4 Symptoms: are unchanged sb4 Bed/Room Type: Standard sb4 Location: Telemetry/MedSurg (Inpatient)(01/07/25 22:17) eb1 Room Assignment: 228(01/07/25 22:59) rv1 Diagnosis - Dyspnea, fluid overload, concern for new onset congestive heart failure sb4 Forms: - Medication Reconciliation Form sb4 - SBAR form sb4 - Leadership Thank You Letter sb4 Signatures: Dispatcher [employer] EDMS Chhaya Kolb RN RN eb1 Daryl Leigh DO DO ms3 Melinda Greer, PA-Sun PA-C sb4 Rosita Marks rv1 PASHA WEBB RN RN dd2 Belia Coburn, RN RN kt5 Corrections: (The following items were deleted from the chart) 18:50 18:50 BASIC METABOLIC PANEL+C.LAB.BRZ ordered. EDMS EDMS 18:50 18:50 CBC+H.LAB.BRZ ordered. EDMS EDMS 18:50 18:50 HEPATIC FUNCTION+C.LAB.BRZ ordered. EDMS EDMS 18:50 18:50 MAGNESIUM+C.LAB.BRZ ordered. EDMS EDMS 18:50 18:50 PROBNP+C.LAB.BRZ ordered. EDMS EDMS 18:50 18:50 PROTIME (+INR)+COAG.LAB.BRZ ordered. EDMS EDMS 18:50 18:50 Troponin High Sensitivity+C.LAB.BRZ ordered. EDMS EDMS 18:50 18:50 Chest Single View+RAD.RAD.BRZ ordered. EDMS EDMS 18:51 18:51 BLOOD CULTURE*+BA.LAB.BRZ ordered. EDMS EDMS 18:51 18:51 LACTATE+C.LAB.BRZ ordered. EDMS EDMS 22:15 19:54 Telemetry/MedSurg (Inpatient) sb4 eb1 22:15 19:54 sb4 eb1 22:17 22:15 Intensive Care Unit eb1 eb1 22:17 22:15 3- eb1 eb1 22:59 22:17 eb1 rv1
--- NOTE | 2025-01-07 19:55 | ER ---
Nurse's Notes [facility] Name: April Ford Age: 49 yrs Sex: Female : 1975 Arrival Date: 01/07/2025 Time: 18:37 Bed 14 Private MD: Diagnosis: Dyspnea, fluid overload, concern for new onset congestive heart failure Presentation: 01/07 18:48 Chief complaint: Patient states: SWELLING IN HER LEGS, STOMACH, NUMBNESS IN HER ARMS dd2 AND SHORT OF BREATH SINCE TUESDAY. Coronavirus screen: At this time, the client does not indicate any symptoms associated with coronavirus-19. Ebola Screen: No symptoms or risks identified at this time. Initial Sepsis Screen: Does the patient meet any 2 criteria? RR > 20 per min. HR > 90 bpm. Yes Does the patient have a suspected source of infection? No. Patient's initial sepsis screen is negative. Risk Assessment: Do you want to hurt yourself or someone else? Patient reports no desire to harm self or others. Onset of symptoms was January 02, 2025. 18:48 Method Of Arrival: Ambulatory dd2 18:48 Acuity: BALDEMAR 3 dd2 Triage Assessment: 18:50 General: Appears in no apparent distress. uncomfortable, Behavior is cooperative, dd2 appropriate for age, anxious. Pain: Denies pain. Respiratory: Reports shortness of breath at rest on exertion Onset: The symptoms/episode began/occurred 01/02/2025, the patient has moderate shortness of breath. Musculoskeletal: Swelling present in abdomen, right leg and left leg. Historical: - Allergies: 18:50 PENICILLINS; dd2 - PMHx: 18:50 Asthma; Anxiety; diabetes mellitus; chronic back pain; Migraines; Heart block; Panic dd2 Attacks; - PSHx: 18:50 Ankle-Left; Ligation of fallopian tube; dd2 - Immunization history:: Adult Immunizations unknown. - Infectious Disease History:: Denies. - Social history:: Smoking status: Patient/guardian denies using tobacco, but has a distant history of tobacco abuse. Screenin:45 [facility] ED Fall Risk Assessment (Adult) History of falling in the last 3 months, ar8 including since admission No falls in past 3 months (0 pts) Confusion or Disorientation No (0 pts) Intoxicated or Sedated No (0 pts) Impaired Gait No (0 pts) Mobility Assist Device Used No (0 pt) Altered Elimination No (0 pt) Score/Fall Risk Level 0 - 2 = Low Risk Oriented to surroundings, Maintained a safe environment. Abuse screen: Denies threats or abuse. Nutritional screening: No deficits noted. Tuberculosis screening: No symptoms or risk factors identified. Assessment: 18:45 General: Appears uncomfortable, Behavior is cooperative, restless. ar8 18:45 Neuro: No deficits noted. Level of Consciousness is awake, alert, obeys commands, ar8 Oriented to person, place, time, situation. Cardiovascular: No deficits noted. Cardiovascular: Edema is 2+ to left foot and right foot. Respiratory: Reports shortness of breath at rest on exertion Airway is patent Respiratory effort is labored, Respiratory pattern is tachypnea Breath sounds with rales bilaterally. GI: Abdomen is distended, firm. Derm:. 19:20 Cardiovascular: Rhythm is sinus rhythm. kt5 19:20 General: Appears in no apparent distress. uncomfortable, Behavior is cooperative, kt5 restless. Pain: Denies pain. Neuro: No deficits noted. Neal Agitation-Sedation Scale (RASS): +1 Restless Level of Consciousness is awake, alert, obeys commands, Oriented to person, place, time, situation. Cardiovascular: No deficits noted. Reports None Denies chest pain, Heart tones S1 S2 present Capillary refill < 3 seconds is brisk Clubbing of nail beds is absent JVD is absent Patient's skin is warm and dry. Pulses are all present. Edema is 3+ to left midcalf, left ankle, left foot, left toes, right midcalf, right ankle, right foot and right toes pitting to left midcalf, left ankle, left foot, left toes, right midcalf, right ankle, right foot and right toes Rhythm is regular. Respiratory: Reports shortness of breath at rest on exertion since 1.5 weeks Airway is patent Respiratory effort is even, unlabored, labored, Respiratory pattern is regular, symmetrical, Breath sounds are diminished in left posterior lower lobe and right posterior lower lobe Onset: The symptoms/episode began/occurred gradually. GI: Abdomen is round distended, Bowel sounds present X 4 quads. Abd is soft X 4 quads Reports bloating. : No deficits noted. No signs and/or symptoms were reported regarding the genitourinary system. Derm: No deficits noted. No signs and/or symptoms reported regarding the dermatologic system. Skin is intact, is healthy with good turgor, Skin is dry, Skin is pink, warm \T\ dry. normal, Skin temperature is warm. Musculoskeletal: No deficits noted. No signs and/or symptoms reported regarding the musculoskeletal system. 20:20 Reassessment: No changes from previously documented assessment. Patient is alert, kt5 oriented x 3, equal unlabored respirations, skin warm/dry/pink. Patient denies pain at this time. Patient states feeling better. Patient states symptoms have improved. 21:23 Reassessment: No changes from previously documented assessment. Patient is alert, kt5 oriented x 3, equal unlabored respirations, skin warm/dry/pink. Patient denies pain at this time. Patient states feeling better. Patient states symptoms have improved. 21:30 General: admit md at for eval. kt5 22:25 Reassessment: No changes from previously documented assessment. Patient is alert, kt5 oriented x 3, equal unlabored respirations, skin warm/dry/pink. Patient denies pain at this time. Patient states feeling better. Patient states symptoms have improved. 23:40 Reassessment: No changes from previously documented assessment. Patient is alert, kt5 oriented x 3, equal unlabored respirations, skin warm/dry/pink. Patient denies pain at this time. Patient states feeling better. Patient states symptoms have improved. 23:46 Reassessment: TUBED SBAR TO 2ND FLOOR. ATTEMPTED TO CALL. NO ANSWER. jj7 01/08 01:01 Reassessment: Patient appears in no apparent distress at this time. No changes from kt5 previously documented assessment. Patient is alert, oriented x 3, equal unlabored respirations, skin warm/dry/pink. Patient denies pain at this time. Patient states feeling better. Patient states symptoms have improved. Vital Signs: 01/07 18:48 BP 178 / 96; Pulse 107; Resp 24; Pulse Ox 100% ; Weight 117.93 kg (M); dd2 19:36 BP 175 / 85; Pulse 90; Resp 20 S; Pulse Ox 99% on R/A; kt5 20:20 BP 160 / 99; Pulse 82; Resp 18; Pulse Ox 99% on R/A; kt5 20:45 BP 143 / 91; Pulse 86; Resp 20; Pulse Ox 98% on NC; kt5 21:30 BP 166 / 90; Pulse 82; Resp 18; Pulse Ox 98% ; kt5 22:35 BP 138 / 60; Pulse 82; Resp 18 S; Pulse Ox 96% on R/A; kt5 23:41 BP 121 / 59; Pulse 84; Resp 18 S; Pulse Ox 98% on R/A; kt5 01/08 01:01 BP 132 / 64; Pulse 78; Resp 18 S; Pulse Ox 99% on R/A; kt5 ED Course: 01/07 18:41 Patient arrived in ED. im 18:43 Melinda Greer PA-C is PHCP. sb4 18:43 Daryl Leigh DO is Attending Physician. sb4 18:45 Bed in low position. Call light in reach. Side rails up X2. Provided Education on: plan ar8 of care. 18:50 Triage completed. dd2 18:50 Stefanie Whatley, CATA is Primary Nurse. ar8 18:50 Arm band placed on right wrist. dd2 18:50 No provider procedures requiring assistance completed. Inserted saline lock: 22 gauge ar8 in right antecubital area, using aseptic technique. Blood collected. Flushed with 10 mL NS. 19:00 Client placed on continuous cardiac and pulse oximetry monitoring. NIBP monitoring kt5 applied. monitor worker on. Door closed. Noise minimized. Warm blanket given. Pillow given. 19:07 Belia Coburn, CATA is Primary Nurse. kt5 19:07 recieved pt and report from stefanie muñoz, all questions answered. kt5 19:12 tech at bs for pcxr. kt5 19:34 Lactate w/ 2H reflex if indic. Sent. kt5 19:34 Blood Culture Adult (2) Sent. kt5 19:35 Inserted saline lock: 18 gauge in left antecubital area, using aseptic technique. Blood kt5 collected. Flushed with 10 mL NS. 19:37 XRAY Chest (1 view) In Process Unspecified. EDMS 19:53 Sushant Monae MD is Hospitalizing Provider. sb4 21:25 Chest For Pe Angio In Process Unspecified. EDMS 01/08 01:04 Patient admitted, IV remains in place. kt5 Administered Medications: 01/07 19:34 Drug: Furosemide IVP 40 mg IVP once; give over 2 minutes Route: IVP; Site: right kt5 forearm; 20:45 Follow up: Response: No adverse reaction; Other kt5 20:17 Drug: Hydrocodone-Acetaminophen PO (7.5 mg-325 mg) 1 tabs PO once Route: PO; kt5 20:45 Follow up: Response: No adverse reaction; Pain is decreased kt5 Medication: 18:45 VIS not applicable for this client. ar8 Outcome: 19:54 Decision to Hospitalize by Provider. sb4 01/08 01:01 Admitted to Tele accompanied by tech, via wheelchair, room 232, with chart, kt5 Condition: stable Instructed on the need for admit, 01:04 Patient left the ED. kt5 Signatures: Dispatcher [employer] Óscar Mendoza RN RN Melinda Grady, PA-C PA-C sb4 Viki Fuentes DIANA, RN RN dd2 Stefanie Whatley RN RN ar8 Belia Coburn RN RN kt5 Corrections: (The following items were deleted from the chart) 01/07 19:13 19:07 recueved pt and report from stefanie muñoz, all questions answered kt5 kt5
[2025-01-07] MEDS ORDERED: HYDROCODONE/APAP 7.5/325 MG TAB ONE (20:15)
--- NOTE | 2025-01-07 20:21 | P.HP ---
Certification for Inpatient Patient admitted to: Inpatient With expected LOS: >2 Midnights Practitioner: I am a practitioner with admitting privileges, knowledge of patient current condition, hospital course, and medical plan of care. Services: Services provided to patient in accordance with Admission requirements found in Title 42 Section 412.3 of the Code of Federal Regulations Patient History Date of Service: 01/07/25 Reason for admission: SOB History of Present Illness: 49 yrs old Female with Asthma, Anxiety , diabetes mellitus, chronic back pain, Migraines, Heart block, Panic Attacks brought to ER with SOB. She also complains of swelling of the extremities and shortness of breath and numbness of the arm. Denies any chest pain. No nausea vomiting or diarrhea. Patient reports progressively worsening shortness of breath, bilateral lower extremity , swelling, abdominal swelling for about 5 days now. She denies any history of congestive heart failure, chronic kidney disease, or cirrhosis. Denies any history of retaining fluid like this. Patient was assessed in the ER and was admitted for further management Allergies diphenhydramine [From Benadryl] Allergy (Verified 01/03/24 03:03) Unknown Penicillins Allergy (Verified 01/03/24 03:03) Rash Home medications list reviewed: Yes Home Medications: Fluticasone Propion/Salmeterol [Advair Hfa 115-21 Mcg Inhaler] 1 puff IH BID 01/03/24 Albuterol Neb [Proventil 0.083% Neb Soln] 2.5 mg NEB Q6HP PRN #60 amp 01/04/24 Albuterol Sulfate [Ventolin Hfa] 2 puff IH Q4H PRN #1 inh 01/04/24 Amlodipine [Norvasc*] 1 tab PO DAILY #30 tab 01/04/24 Benzonatate 1 tab PO TID PRN #60 cap 01/04/24 Ipratropium Neb [Atrovent*] 0.5 mg NEB [id number] PRN #60 amp 01/04/24 Nebulizer 1 each MC DAILY #1 ea 01/04/24 Nebulizer Accessories [Aeroneb Go] 1 each MC DAILY #1 ea 01/04/24 hydroCHLOROthiazide [Hydrochlorothiazide] 1 tab PO DAILY #30 tab 01/04/24 predniSONE [Prednisone*] 3 tab PO DAILY #20 tab 01/04/24 - Past Medical/Surgical History Diabetic: No Past Medical History: Reviewed- Non-Contributory -: anxiety -: HTN -: asthma Past Surgical History: Reviewed- Non-Contributory -: L. ankle repair -: tubal - Family History Family History: Reviewed- Non-Contributory - Family History Mother -: Heart disease - Social History Smoking Status: Never smoker Alcohol use: No CD- Drugs: No Caffeine use: Yes Review of Systems 10-point ROS is otherwise unremarkable Physical Examination - Vital Signs Temperature: 98.2 F Blood Pressure: 134/78 Pulse: 78 Respirations: 19 Pulse Ox (%): 94 - Physical Exam General: Alert, Oriented x3, Moderate distress, Obese HEENT: Atraumatic, Normocephalic Neck: Supple Respiratory: Diminished, Crackles/rales, Expiratory wheezes Cardiovascular: Regular rate/rhythm, Normal S1 S2, Edema Capillary refill: <2 Seconds Gastrointestinal: Soft and benign, W/out hepatosplenomegaly Musculoskeletal: No clubbing, Swelling Integumentary: No rashes Neurological: Other (Alert, Awake , Non focal ) Lymphatics: No axilla or inguinal lymphadenopathy - Studies Laboratory Data (last 24 hrs) 01/07/25 01/07/25 01/07/25 18:57 18:57 18:57 WBC 9.80 Hgb 10.1 L Hct 31.2 L Plt Count 325 PT 12.1 INR 1.07 Sodium 139 Potassium 3.8 BUN 14 Creatinine 1.01 Glucose 117 H Magnesium 1.8 Total Bilirubin < 0.2 L AST 14 L ALT 26 Alkaline Phosphatase 115 Assessment and Plan - Plan Asthma Exacerbation Monitor closely on telemetry Started on bronchodilators Oxygen supplementation Steroids added Chest x-ray findings noted Anxiety Continue home medications and atorvastatin Anasarca Will get an echocardiogram Aggressive diuresis Monitor closely on telemetry Pulmonary nodules CT findings noted Will consult pulmonology GI/DVT prophylaxis Advanced directive full code Discharge Plan: Home Plan to discharge in: 48 Hours - Advance Directives Does patient have a Living Will: No Does patient have a Durable POA for Healthcare: No - Code Status/Comfort Care Code Status: Full Code Time Spent Managing Pts Care (In Minutes): 48
--- NOTE | 2025-01-07 20:47 | RAD REPORT ---
EXAMINATION: ONE VIEW CHEST XR CLINICAL INDICATION: Female, 49 years old.,Chest pain;Dyspnea TECHNIQUE: Frontal chest projection is submitted. Examination is limited by patient positioning and t echnique. COMPARISON: 07/02/2024 FINDINGS: The lungs are well inflated and clear. No pneumothorax or sizable effusion. The heart is normal in s ize. Mediastinal contours are unremarkable. IMPRESSION: No acute intrathoracic abnormalities.
--- NOTE | 2025-01-07 21:56 | RAD REPORT ---
EXAM: CT Chest For Pe Angio TECHNIQUE: CT angiogram of the chest was performed following intravenous contrast administration, inc luding sagittal and coronal as well as maximum intensity projection reformats. One or more of the following dose reduction techniques were used: Automated exposure control, adjustment of the mA and k V according to patient size, and iterative reconstruction. Unless otherwise specified, incidental findings do not require dedicated imaging follow-up. INDICATION: Chest pain, dyspnea PE protocol Y COMPARISON: CTA chest 08/06/2023 through 10/30/2019. Chest radiograph of the same day. FINDINGS: LINES/TUBES: None. PULMONARY ARTERIES: Main pulmonary arteries are normal in caliber. No filling defects within the pul monary arteries to suggest pulmonary embolus. LUNGS AND AIRWAYS: No focal consolidation or airspace process. Anterior left lower lobe subpleural ov oid 12 x 9 mm nodule on axial image 116 with linear extension towards the pleural surface, appears to be gradually increasing in size dating back to 2019, allowing for variable degrees of respiratory motion artifact. Right lower lobe anterior peribronchovascular 9 mm nodule on axial image 98 appears stable. Numerous right lower and right middle lobe nodules not exceeding 5 mm, do not appear significantly changed. PLEURA: No effusion or pneumothorax. HEART AND MEDIASTINUM: The visualized thyroid gland is normal. No mediastinal, hilar, or axillary lym phadenopathy. Heart is unremarkable. No pericardial effusion. SOFT TISSUES AND BONES: No acute osseous abnormality. No significant soft tissue finding. UPPER ABDOMEN: Unremarkable. IMPRESSION: No evidence of acute central pulmonary emboli. Numerous pulmonary nodules, with a dominant subpleural left basilar nodule demonstrating likely inter javid increase in size over the course of multiple CTs of the chest dating back to 2019, now measuring up to 12 mm. Slowly growing malignancy should be considered. Pulmonary consultation is neeta mmended. Additional evaluation by soft tissue sampling or PET/CT may be considered as well.
[2025-01-07] MEDS ORDERED: ONDANSETRON 4 MG/2 ML VIAL IV PRN (22:10)
[2025-01-07] MEDS ORDERED: ALBUTEROL 2.5 MG/3 ML NEB SOL NEB PRN (22:10)
[2025-01-07] MEDS: FUROSEMIDE 40 MG/4 ML VIAL IV SCH (22:17)
[2025-01-08] MEDS: IPRATROPIUM BROM 0.5MG/2.5ML NEB SCH (01:00)
[2025-01-08] MEDS: ALBUTEROL 2.5 MG/3 ML NEB SOL NEB SCH (01:00)
[2025-01-08] MEDS: ALBUTEROL 2.5 MG/3 ML NEB SOL ONE (01:35)
[2025-01-08] MEDS: IPRATROPIUM BROM 0.5MG/2.5ML ONE (01:35)
[2025-01-08] MEDS: METHYLPREDNISOLONE 125 MG INJ IV SCH (01:36)
[2025-01-08] MEDS: MORPHINE 2 MG/ML SYR IV PRN (02:36)
[2025-01-08] MEDS: HYDROCODONE/APAP 5/325 MG TAB PO PRN (05:29)
[2025-01-08 08:04] LABS: Absolute Lymphocytes (CBC) 1.4 K/uL (0.7-4.9); Hematocrit 33.9 % (36.0-45.0); Hemoglobin 10.8 g/dL (12.0-15.0); MCH 24.5 pg (27.0-35.0); MCHC 31.7 g/dL (32.0-36.0); MCV 77.4 fL (80-100); MPV 9.2 fL (7.6-11.3); Nucleated RBC Absolute Count 0.0 (0-0); Nucleated Red Blood Cells % 0.0 % (0-0); RBC Red Blood Cell Count 4.39 M/uL (3.86-4.86); White Blood Count 10.00 thou/uL (4.3-10.9)
[2025-01-08 08:17] LABS: ALT/SGPT 30.0 U/L (13-56); AST/SGOT 11.0 U/L (15-37); Albumin 3.4 g/dL (3.4-5.0); Albumin/Globulin Ratio 0.8 (1.1-1.8); Alkaline Phosphatase 125.0 U/L (45-117); Anion Gap 15.9 mEq/L (5.0-15.0); BUN Blood Urea Nitrogen 24.0 mg/dL (7-18); Globulin 4.3 g/dL (2.3-3.5); Glucose Level 175.0 mg/dL (74-106); Potassium 3.9 mEq/L (3.5-5.1)
[2025-01-08 09:20] LABS: Blood Morphology Comment NOT SEEN (NOT SEEN); White Blood Cell Scan OK (OK)
--- NOTE | 2025-01-08 10:45 | P.PN ---
Date of Service: 01/08/25 Subjective: slight improvement. feels pounding palpitations Physical Exam: Gen: Alert, Oriented, NAD CV: Regular rate and rhythm, no edema Pulm: Nonlabored respirations on room air, clear bilaterally Abdomen: Soft, nontender, nondistended Neuro: Normal strength, normal affect Problem List: Shortness of breath secondary to asthma exacerbation Anasarca Numerous pulmonary nodules Severe iron deficiency anemia Anxiety Chronic back pain Hx migraines Hx heart block Shortness of breath secondary to asthma exacerbation Anasarca Numerous pulmonary nodules on admission, presents with lower extremity edema, abdominal swelling associated with shortness of breath, numbness in arm CTA chest negative for PE but did note Numerous pulmonary nodules, with a dominant subpleural left basilar nodule demonstrating likely interval increase in size over the course of multiple CTs of the chest dating back to 2019, now measuring up to 12 mm. Slowly growing malignancy should be considered. Given IV lasix in ED. s/p IV lasix and IV steroids overnight. Dr. Castillo, pulm consulted added spironolactone, prednisone Consider stopping HCTZ and amlodipine per pulm will need f/u as outpatient for PET scan Echo ordered to eval EF / stenosis Follow blood cultures Duonebs, pain control Severe iron deficiency anemia hgb similar to past labs. iron studies: iron 25, tsat% 5% would benefit from iron supplementation on discharge Anxiety Chronic back pain Hx migraines Hx heart block confirm home meds, restart as appropriate VTE: SCD Code: Full Dispo: Home
--- NOTE | 2025-01-08 10:45 | P.CNS ---
Date of Consult: 01/08/25 Reason for Consult: Asthma , LE Edema, SPN LLL 12 mm Chief Complaint: SOB History of Present Illness: PT is 49 yrs of age AW increasing SOB for 1 wk and LEdema. Hx of ASthma Complaint . No cough Former smoker SPN noticed Last asthma exacerbation wa ayear ago Allergies diphenhydramine [From Benadryl] Allergy (Verified 01/03/24 03:03) Unknown Penicillins Allergy (Verified 01/03/24 03:03) Rash Home Medications: Fluticasone Propion/Salmeterol [Advair Hfa 115-21 Mcg Inhaler] 1 puff IH BID 01/03/24 Albuterol Neb [Proventil 0.083% Neb Soln] 2.5 mg NEB Q6HP PRN #60 amp 01/04/24 Albuterol Sulfate [Ventolin Hfa] 2 puff IH Q4H PRN #1 inh 01/04/24 Amlodipine [Norvasc*] 1 tab PO DAILY #30 tab 01/04/24 Benzonatate 1 tab PO TID PRN #60 cap 01/04/24 Ipratropium Neb [Atrovent*] 0.5 mg NEB [id number] PRN #60 amp 01/04/24 Nebulizer 1 each MC DAILY #1 ea 01/04/24 Nebulizer Accessories [Aeroneb Go] 1 each MC DAILY #1 ea 01/04/24 hydroCHLOROthiazide [Hydrochlorothiazide] 1 tab PO DAILY #30 tab 01/04/24 - Past Medical/Surgical History Diabetic: No -: anxiety -: HTN -: asthma -: L. ankle repair -: tubal - Family History Mother Medical History: Heart disease - Social History Smoking Status: Former smoker Alcohol use: No CD- Drugs: No Caffeine use: Yes Place of Residence: Home Review of Systems 10-point ROS is otherwise unremarkable Physical Examination Temp Pulse Resp BP Pulse Ox 98.3 F 78 18 132/64 96 01/08/25 04:00 01/08/25 06:14 01/08/25 06:22 01/08/25 06:14 01/08/25 05:29 General: Alert, Oriented x3 HEENT: Atraumatic Neck: Supple Respiratory: Clear to auscultation bilaterally Cardiovascular: No edema, Regular rate/rhythm, Normal S1 S2 Laboratory Data (last 24 hrs) 01/07/25 01/07/25 01/07/25 18:57 18:57 18:57 WBC 9.80 Hgb 10.1 L Hct 31.2 L Plt Count 325 PT 12.1 INR 1.07 Sodium 139 Potassium 3.8 BUN 14 Creatinine 1.01 Glucose 117 H Magnesium 1.8 Total Bilirubin < 0.2 L AST 14 L ALT 26 Alkaline Phosphatase 115 - Problems (1) Asthma exacerbation Current Visit: Yes Status: Acute Plan: AW asthma exacerbation complaint with inhalers. Change to PO pred Qualifiers: Asthma severity: moderate (2) Pulmonary nodule Onset Date: 07/11/14 Current Visit: No Status: Acute Plan: LLL SPN 20 mm close to the diaphragm. Increased in size as per radiology since 2019 other msal MPN. To f/u as OP will need PET scan and PFT/ Microcytic anenmia. Iron strudies. LE edema SE of Amlodipin / Add sprionolactone. DC HZTZ and Amlodipine
[2025-01-08 11:26] LABS: Ferritin 3.7 ng/mL (8-252); Iron 25.0 ug/dL (50-170); Transferrin 354.0 mg/dL (200-360)
[2025-01-08] MEDS: SPIRONOLACTONE 25 MG TABLET PO SCH (13:13)
[2025-01-08] MEDS: SOD FERRIC GLUC COMPLX/SUCROSE 125 MG in NA CHLORIDE 0.9% 100 ML IV SCH (15:37)
[2025-01-08] MEDS: METOPROLOL TAR 25 MG TAB PO SCH (15:37)
[2025-01-08] MEDS: ACETAMINOPHEN 325 MG TABLET PO PRN (18:31)
[2025-01-08] MEDS ORDERED: ALBUTEROL 2.5 MG/3 ML NEB SOL NEB PRN (19:19)
[2025-01-08] MEDS: predniSONE 20 MG TAB PO SCH (20:56)
[2025-01-08] MEDS: [UNRECOGNIZED DRUG - OTHER] IH SCH (20:58)
[2025-01-08] MEDS: FLUTICASONE PROPION IH SCH (20:58)
[2025-01-08] MEDS: SALMETEROL IH SCH (20:58)
[2025-01-08] MEDS: ALPRAZOLAM 0.25 MG TABLET PO PRN (20:58)
[2025-01-09 03:05] VITALS: BMI 41.9
[2025-01-09 06:08] LABS: Absolute Lymphocytes (CBC) 1.9 K/uL (0.7-4.9); Hematocrit 33.7 % (36.0-45.0); Hemoglobin 11.0 g/dL (12.0-15.0); MCH 24.8 pg (27.0-35.0); MCHC 32.6 g/dL (32.0-36.0); MCV 76.1 fL (80-100); MPV 8.9 fL (7.6-11.3); Nucleated RBC Absolute Count 0.0 (0-0); Nucleated Red Blood Cells % 0.0 % (0-0); RBC Red Blood Cell Count 4.43 M/uL (3.86-4.86); White Blood Count 23.10 thou/uL (4.3-10.9)
[2025-01-09 06:23] LABS: Anion Gap 9.4 mEq/L (5.0-15.0); BUN Blood Urea Nitrogen 23.0 mg/dL (7-18); Glucose Level 154.0 mg/dL (74-106); Magnesium 2.2 mg/dL (1.6-2.4); Potassium 4.4 mEq/L (3.5-5.1)
[2025-01-09 08:03] LABS: Differential Total Cells Count 100; Segmented Neutrophils 88 % (40-80)
[2025-01-09 08:04] LABS: Blood Morphology Comment NOTED (NOT SEEN)
[2025-01-09 08:05] LABS: Microcytosis 1+
--- NOTE | 2025-01-09 11:25 | P.CNS ---
Date of Consult: 01/09/25 Chief Complaint: SOB History of Present Illness: Patient with PMH of HTN, Obesity, presented with worsening SOB, BLE and abdominal swelling, denies chest pain, report palpitations, denies syncope. Allergies diphenhydramine [From Benadryl] Allergy (Verified 01/03/24 03:03) Unknown Penicillins Allergy (Verified 01/03/24 03:03) Rash Home medications list reviewed: Yes Home Medications: Fluticasone Propion/Salmeterol [Advair Hfa 115-21 Mcg Inhaler] 1 puff IH BID 01/03/24 Albuterol Neb [Proventil 0.083% Neb Soln] 2.5 mg NEB Q6HP PRN #60 amp 01/04/24 Albuterol Sulfate [Ventolin Hfa] 2 puff IH Q4H PRN #1 inh 01/04/24 Amlodipine [Norvasc*] 1 tab PO DAILY #30 tab 01/04/24 Benzonatate 1 tab PO TID PRN #60 cap 01/04/24 Ipratropium Neb [Atrovent*] 0.5 mg NEB [id number] PRN #60 amp 01/04/24 Nebulizer 1 each MC DAILY #1 ea 01/04/24 Nebulizer Accessories [Aeroneb Go] 1 each MC DAILY #1 ea 01/04/24 hydroCHLOROthiazide [Hydrochlorothiazide] 1 tab PO DAILY #30 tab 01/04/24 - Past Medical/Surgical History Diabetic: No -: anxiety -: HTN -: asthma -: L. ankle repair -: tubal - Family History Mother Medical History: Heart disease - Social History Smoking Status: Former smoker Alcohol use: No CD- Drugs: No Caffeine use: Yes Place of Residence: Home Review of Systems 10-point ROS is otherwise unremarkable Physical Examination Temp Pulse Resp BP Pulse Ox 98.0 F 84 16 121/56 L 97 01/09/25 08:00 01/09/25 08:00 01/09/25 08:00 01/09/25 08:00 01/09/25 08:00 General: Alert, In no apparent distress HEENT: Atraumatic, PERRLA, Mucous membr. moist/pink, EOMI, Sclerae nonicteric Neck: Supple, 2+ carotid pulse no bruit, No LAD, Without JVD or thyroid abnormality Respiratory: Clear to auscultation bilaterally, Normal air movement Cardiovascular: Regular rate/rhythm, Normal S1 S2 Gastrointestinal: Normal bowel sounds, No tenderness Musculoskeletal: No tenderness Integumentary: No rashes Neurological: Normal gait, Normal speech, Normal tone, Normal affect Lymphatics: No axilla or inguinal lymphadenopathy - Problems (1) SOB (shortness of breath) Current Visit: Yes Status: Acute Plan: patient had an echo that shown normal LV systolic and diastolic function start lasix 40 mg daily continue Aldactone 25 mg daily There no signs of heart failure per echo and blood work. Cardiology will sign off, please call with any questions. (2) Palpitation Current Visit: Yes Status: Acute Plan: agree with lopressor 12.5 mg po BID
--- NOTE | 2025-01-09 12:17 | P.PN ---
Date of Service: 01/09/25 Subjective: no events overnight feeling better breathing okay on room air , but still some SOB/ISIDRO edema slight improved; tolerating iron Physical Exam: Gen: Alert, Oriented, NAD CV: Regular rate and rhythm, 2+ edema Pulm: Nonlabored respirations on room air, clear bilaterally Abdomen: Soft, nontender, nondistended Neuro: Normal strength, normal affect Problem List: Shortness of breath secondary to asthma exacerbation Anasarca Numerous pulmonary nodules Severe iron deficiency anemia Anxiety Chronic back pain Hx migraines Hx heart block Shortness of breath secondary to asthma exacerbation Anasarca secondary to iron deficiency Numerous pulmonary nodules on admission, presents with lower extremity edema, abdominal swelling associated with shortness of breath, numbness in arm CTA chest negative for PE but did note Numerous pulmonary nodules, with a dominant subpleural left basilar nodule demonstrating likely interval increase in size over the course of multiple CTs of the chest dating back to 2019, now measuring up to 12 mm. Slowly growing malignancy should be considered. Dr. Castillo, pulm consulted added spironolactone, prednisone Consider stopping HCTZ and amlodipine per pulm will need f/u as outpatient for PET scan Cardiology consulted Echo with normal LV systolic and diastolic function per cardio recommending lasix 40 mg daily Continue metoprolol 12.5 BID Severe iron deficiency anemia hgb similar to past labs. iron studies: iron 25, tsat% 5% Continue IV iron (125 mg); started 01/08 would benefit from iron supplementation on discharge Anxiety Chronic back pain Hx migraines Hx heart block confirm home meds, restart as appropriate VTE: SCD Code: Full Dispo: Home
--- NOTE | 2025-01-09 12:23 | P.PN ---
Subjective Date of Service: 01/09/25 Chief Complaint: Asthma exacerbation Subjective: Improving (Patient is doing better improving) Review of Systems Respiratory: Shortness of Breath Physical Examination - Vital Signs Temperature: 98.0 F Blood Pressure: 121/56 Pulse: 84 Respirations: 16 Pulse Ox (%): 97 - Physical Exam General: Alert, Oriented x3 Respiratory: Clear to auscultation bilaterally Assessment And Plan - Current Problems (Diagnosis) (1) Asthma exacerbation Current Visit: Yes Status: Acute Plan: Patient is doing better plan to discharge home continue with inhalers discharge home on low-dose prednisone 10 mg twice a day for 5 to 7 days normal echo continue with spironolactone Qualifiers: Asthma severity: moderate (2) Pulmonary nodule Onset Date: 07/11/14 Current Visit: No Status: Acute Plan: LLL SPN 20 mm close to the diaphragm. Increased in size as per radiology since 2019 other msal MPN. To f/u as OP will need PET scan and PFT/ Microcytic anenmia. Iron strudies. LE edema SE of Amlodipin / Add sprionolactone. DC HZTZ and Amlodipine (3) Iron deficiency anemia Current Visit: Yes Status: Acute Plan: Severe iron deficiency anemia will need iron infusions a GI workup as well
[2025-01-10 04:30] LABS: Absolute Lymphocytes (CBC) 2.4 K/uL (0.7-4.9); Hematocrit 31.2 % (36.0-45.0); Hemoglobin 10.1 g/dL (12.0-15.0); MCH 24.9 pg (27.0-35.0); MCHC 32.3 g/dL (32.0-36.0); MCV 77.0 fL (80-100); MPV 8.6 fL (7.6-11.3); Nucleated RBC Absolute Count 0.0 (0-0); Nucleated Red Blood Cells % 0.1 % (0-0); RBC Red Blood Cell Count 4.05 M/uL (3.86-4.86); White Blood Count 15.30 thou/uL (4.3-10.9)
[2025-01-10 04:43] LABS: ALT/SGPT 22 U/L (13-56); Albumin 3.1 g/dL (3.4-5.0); Albumin/Globulin Ratio 0.8 (1.1-1.8); Alkaline Phosphatase 92 U/L (45-117); Anion Gap 7.3 mEq/L (5.0-15.0); BUN Blood Urea Nitrogen 23 mg/dL (7-18); Globulin 3.7 g/dL (2.3-3.5); Glucose Level 133 mg/dL (74-106); Magnesium 2.1 mg/dL (1.6-2.4); Potassium 5.3 mEq/L (3.5-5.1)
[2025-01-10 04:50] LABS: AST/SGOT < 10 U/L (15-37)
[2025-01-10] MEDS: FUROSEMIDE 40 MG TABLET PO SCH (09:22)
[2025-01-10] MEDS: SPIRONOLACTONE 25 MG TABLET PO SCH (09:22)
[2025-01-10 12:46] VITALS: O2SAT 98
[2025-01-10 15:46] VITALS: BP 127/77; TEMP 98.4
--- NOTE | 2025-01-11 06:50 | P.DS ---
Admission Date: 01/07/25 Discharge Date: 01/10/25 Disposition: ROUTINE DISCHARGE Discharge Condition: GOOD Reason for Admission: Asthma exacerbation Consultations: Cardiology - Dr. Underwood Pulmonology - Dr. Castillo Brief History of Present Illness: 49yo F, PMH: Asthma, Anxiety , diabetes mellitus, chronic back pain, Migraines, Heart block, Panic Attacks Patient was brought to ER with SOB. She also complains of swelling of the extremities and shortness of breath and numbness of the arm. Denies any chest pain. No nausea vomiting or diarrhea. Patient reports progressively worsening shortness of breath, bilateral lower extremity , swelling, abdominal swelling for about 5 days now. She denies any history of congestive heart failure, chronic kidney disease, or cirrhosis. Denies any history of retaining fluid like this. Patient was assessed in the ER and was admitted for further management. Hospital Course: Problem List: Shortness of breath secondary to asthma exacerbation Anasarca, improved Numerous pulmonary nodules Severe iron deficiency anemia Anxiety Chronic back pain Hx migraines Hx heart block Physician discharge instructions: Patient presented with worsening shortness of breath associated anasarca secondary to acute on chronic asthma exacerbation further complicated by severe iron deficiency. CTA chest on admission was negative for pulmonary embolism but did note numerous pulmonary nodules demonstrating likely small interval increase in size over the course of multiple CTs of the chest dating back to 2019. She was noted to be anemic on admission with a hemoglobin of 10.8, similar to how its been during previous admissions. Iron studies were checked and patient was found to be severely iron deficient (iron 25, tsat% 5%). Patient was started on oral steroids in addition to IV iron (125 mg x2 bags) and had improvement of her symptoms. She was also started on oral spironolactone this hospitalization, to be continued upon discharge per pulmonology. Patient was feeling better, breathing more comfortably on room air, afebrile since admission and was deemed stable for discharge. Recommend repeating iron studies in 2-3 months to recheck iron levels. Advised patient to continue over the counter iron supplementation upon discharge. In regards to pulmonary nodules seen on imaging, Dr. Castillo, airplane patrol pilot was consulted and recommended patient follow up in the office for outpatient PET scan to further evaluate nodules to rule out malignancy. Echocardiogram official report pending upon discharge however reportedly showed normal LV systolic and diastolic function per cardiology. No further cardiac work up warranted. She was noted to develop leukocytosis ~24 hours after admission which is secondary to steroids. No evidence of infection. Recommend follow up with PCP, Cardiology, and Pulmonology. Suspect once iron deficiency has improved, swelling will improve as well, and may not require lasix/spironolactone for chcf. Medications: Prednisone 10 mg twice daily 5-7 days ferrous sulfate (otc) Spironolactone 25 mg daily lasix 40mg daily Metoprolol 12.5 mg BID Follow up: PCP 3-5 days Pulmonology in 2-4 weeks Please call to schedule / confirm appointments CTA Chest findings: No focal consolidation or airspace process. Anterior left lower lobe subpleural ovoid 12 x 9 mm nodule on axial image 116 with linear extension towards the pleural surface, appears to be gradually increasing in size dating back to 2019, allowing for variable degrees of respiratory motion artifact. Right lower lobe anterior peribronchovascular 9 mm nodule on axial image 98 appears stable. Numerous right lower and right middle lobe nodules not exceeding 5 mm, do not appear significantly changed. Impression: Numerous pulmonary nodules, with a dominant subpleural left basilar nodule demonstrating likely interval increase in size over the course of multiple CTs of the chest dating back to 2019, now measuring up to 12 mm. Slowly growing malignancy should be considered. Pulmonary consultation is recommended. Additional evaluation by soft tissue sampling or PET/CT may be considered as well. Physical Exam: Gen: Alert, Oriented, NAD CV: Regular rate and rhythm, no edema Pulm: Nonlabored respirations on room air, clear bilaterally Abdomen: Soft, nontender, nondistended Neuro: Normal strength, normal affect Vital Signs/Physical Exam: Temp Pulse Resp BP Pulse Ox 98.4 F 74 16 127/77 97 01/10/25 15:45 01/10/25 15:45 01/10/25 15:45 01/10/25 15:45 01/10/25 15:45 Laboratory Data at Discharge: WBC 15.30 thou/uL (4.3-10.9) H 01/10/25 04:14 Hgb 10.1 g/dL (12.0-15.0) L D 01/10/25 04:14 Hct 31.2 % (36.0-45.0) L 01/10/25 04:14 Plt Count 319 thou/uL (152-406) 01/10/25 04:14 PT 12.1 SECONDS (10-13.0) 01/07/25 18:57 INR 1.07 01/07/25 18:57 Sodium 136 mEq/L (136-145) 01/10/25 04:14 Potassium 4.1 mEq/L (3.5-5.1) D 01/10/25 10:03 BUN 23 mg/dL (7-18) H 01/10/25 04:14 Creatinine 0.97 mg/dL (0.55-1.02) 01/10/25 04:14 Glucose 133 mg/dL (74-106) H 01/10/25 04:14 Magnesium 2.1 mg/dL (1.6-2.4) 01/10/25 04:14 Total Bilirubin < 0.2 mg/dL (0.2-1.0) L 01/10/25 04:14 AST < 10 U/L (15-37) L 01/10/25 04:14 ALT 22 U/L (13-56) 01/10/25 04:14 Alkaline Phosphatase 92 U/L (45-117) 01/10/25 04:14 Home Medications: Fluticasone Propion/Salmeterol [Advair Hfa 115-21 Mcg Inhaler] 1 puff IH BID 01/03/24 Albuterol Neb [Proventil 0.083% Neb Soln] 2.5 mg NEB Q6HP PRN #60 amp 01/04/24 Ipratropium Neb [Atrovent*] 0.5 mg NEB [id number] PRN #60 amp 01/04/24 Nebulizer 1 each MC DAILY #1 ea 01/04/24 Nebulizer Accessories [Aeroneb Go] 1 each MC DAILY #1 ea 01/04/24 Albuterol Sulfate [Ventolin Hfa] 2 puff IH Q4H PRN 30 Days #1 inh 01/10/25 Furosemide [Lasix*] 40 mg PO DAILY 30 Days #30 tab 01/10/25 Metoprolol Tartrate [Lopressor*] 12.5 mg PO BID 30 Days #30 tab 01/10/25 Spironolactone [Aldactone*] 25 mg PO DAILY 30 Days #30 tab 01/10/25 predniSONE [Prednisone*] 20 mg PO BID 3 Days #6 tab 01/10/25 New Medications: Spironolactone [Aldactone*] 25 mg PO DAILY 30 Days #30 tab Furosemide [Lasix*] 40 mg PO DAILY 30 Days #30 tab Metoprolol Tartrate [Lopressor*] 12.5 mg PO BID 30 Days #30 tab predniSONE [Prednisone*] 20 mg PO BID 3 Days #6 tab Albuterol Sulfate [Ventolin Hfa] 2 puff IH Q4H PRN 30 Days #1 inh PRN Reason: Shortness Of Breath Physician Discharge Instructions: Physician discharge instructions: Patient presented with worsening shortness of breath associated anasarca secondary to acute on chronic asthma exacerbation further complicated by severe iron deficiency. CTA chest on admission was negative for pulmonary embolism but did note numerous pulmonary nodules demonstrating likely small interval increase in size over the course of multiple CTs of the chest dating back to 2019. She was noted to be anemic on admission with a hemoglobin of 10.8, similar to how its been during previous admissions. Iron studies were checked and patient was found to be severely iron deficient (iron 25, tsat% 5%). Patient was started on oral steroids in addition to IV iron (125 mg x2 bags) and had improvement of her symptoms. She was also started on oral spironolactone this hospitalization, to be continued upon discharge per pulmonology. Patient was feeling better, breathing more comfortably on room air, afebrile since admission and was deemed stable for discharge. Recommend repeating iron studies in 2-3 months to recheck iron levels. Advised patient to continue over the counter iron supplementation upon discharge. In regards to pulmonary nodules seen on imaging, Dr. Castillo, airplane patrol pilot was consulted and recommended patient follow up in the office for outpatient PET scan to further evaluate nodules to rule out malignancy. Echocardiogram official report pending upon discharge however reportedly showed normal LV systolic and diastolic function per cardiology. No further cardiac work up warranted. She was noted to develop leukocytosis ~24 hours after admission which is secondary to steroids. No evidence of infection. Recommend follow up with PCP, Cardiology, and Pulmonology. Suspect once iron deficiency has improved, swelling will improve as well, and may not require lasix/spironolactone for chcf. Medications: Prednisone 10 mg twice daily 5-7 days ferrous sulfate (otc) Spironolactone 25 mg daily lasix 40mg daily Metoprolol 12.5 mg BID Follow up: PCP 3-5 days Pulmonology in 2-4 weeks Please call to schedule / confirm appointments CTA Chest findings: No focal consolidation or airspace process. Anterior left lower lobe subpleural ovoid 12 x 9 mm nodule on axial image 116 with linear extension towards the pleural surface, appears to be gradually increasing in size dating back to 2019, allowing for variable degrees of respiratory motion artifact. Right lower lobe anterior peribronchovascular 9 mm nodule on axial image 98 appears stable. Numerous right lower and right middle lobe nodules not exceeding 5 mm, do not appear significantly changed. Impression: Numerous pulmonary nodules, with a dominant subpleural left basilar nodule demonstrating likely interval increase in size over the course of multiple CTs of the chest dating back to 2019, now measuring up to 12 mm. Slowly growing malignancy should be considered. Pulmonary consultation is recommended. Additional evaluation by soft tissue sampling or PET/CT may be considered as well. Followup: Kvng Castillo MD [ACTIVE - CAN ADMIT] - (Follow up in 2-4 weeks) NONE,NONE [Primary Care Provider] - Time spent managing pt's care (in minutes): 45
== END 2025-01-10 17:12 | disposition home or self-care (01) | DRG 202 ==
LOC: ER 18:37 → ERHOLD 22:10 → 2ND 01-08 00:53
PROVIDERS: ADMIT Family Medicine; ATTEND Hospitalist
DX: J45.41 Moderate persistent asthma with (acute) exacerbation (principal); Z68.41 Body mass index [BMI] 40.0-44.9, adult; E66.9 Obesity, unspecified; F41.9 Anxiety disorder, unspecified; G89.29 Other chronic pain; M54.9 Dorsalgia, unspecified; D50.9 Iron deficiency anemia, unspecified; E11.9 Type 2 diabetes mellitus without complications; R91.8 Other nonspecific abnormal finding of lung field; Z88.0 Allergy status to penicillin; Z88.8 Allergy status to other drugs, medicaments and biological substances; Z79.52 Long term (current) use of systemic steroids; Z79.899 Other long term (current) drug therapy; Z87.891 Personal history of nicotine dependence
CPT/HCPCS: 36415; 71045; 71275; 80048; 80053; 80076; 82728; 83540; 83605; 83735; 83880; 84132; 84466; 84484; 85025; 85610; 87040; 93005; 93306; 94640; 94760; 96374; 99285; J1938; J2270; J2916; J2919; J7512; J7613; J7644; Q9967